=== PATIENT | male | born 1955 | race Caucasian/White ===

== ENCOUNTER → 2016-08-22 | Outpatient (CLI) | payer OTHER ==
[~2016-08-22] MED LIST: ACET300T2 PO; ASPI-232 PO; ATOR80TA PO; ATV/1 PO; CIPR-255 PO; FLUT0.0529 NAE; HYDR-3983 PO; MCRHC/8025 PO; MELO15TA3 PO; METO1TAB66 PO; NITR0.4S SL; OMEGCAP2 PO; TADA5TAB11 PO
[2016-08-22 10:58] LABS: CHOLESTEROL/HDL RATIO 4.6
== END | disposition home or self-care (01) ==
LOC: C.LAB 09:13
PROVIDERS: ATTEND Family Medicine
DX: E78.00 Pure hypercholesterolemia, unspecified (principal); I10 Essential (primary) hypertension; I51.9 Heart disease, unspecified; I21.3 ST elevation (STEMI) myocardial infarction of unspecified site

== ENCOUNTER → 2016-08-29 | Outpatient (CLI) | payer OTHER ==
[~2016-08-29] MED LIST changes: +METO-452 PO; -METO1TAB66 PO
== END | disposition home or self-care (01) ==
LOC: C.LAB 09:14
PROVIDERS: ATTEND Family Medicine
DX: E78.00 Pure hypercholesterolemia, unspecified (principal); I51.9 Heart disease, unspecified; I10 Essential (primary) hypertension; I21.3 ST elevation (STEMI) myocardial infarction of unspecified site

== ENCOUNTER → 2017-01-05 | Outpatient (CLI) | payer OTHER ==
[~2017-01-05] MED LIST changes: -METO-452 PO; +METO1TAB66 PO
--- NOTE | 2017-01-05 12:24 | DIAGNOSTIC IMAGING REPORT ---
ULTRASOUND OF THE CAROTID ARTERIES CLINICAL HISTORY: CAD; HYPERLIPIDEMIA; HYPERTENSION COMPARISON STUDY: None. TECHNIQUE: Real-time, grayscale, and color Doppler sonography of the carotid arteries was performed. Imaging reviewed in the transverse and longitudinal planes. NASCET criteria was utilized for stenosis calcification. FINDINGS: There is mild atherosclerotic plaque present . The peak systolic velocity within the right internal carotid artery is 66 cm/sec. The systolic velocity ratio of right internal to common carotid artery is 0.6. The peak systolic velocity within the left internal carotid artery is 74 cm/sec. The systolic velocity ratio left internal to common carotid artery is 0.8. Antegrade flow is seen in the vertebral arteries. The external carotid arteries are patent. Blood pressure in the right arm measured 125 mm/Hg. Blood pressure in the left arm measured 139 mm/Hg. IMPRESSION: No evidence of hemodynamically significant carotid stenosis. Electronically signed by: Jimmie Manuel M.D. 01/05/2017 12:23 PM Dictated Date/Time: 01/05/2017 12:21 PM
== END | disposition home or self-care (01) ==
LOC: C.ULTR 11:17
PROVIDERS: ATTEND Physician Assistant Medical
DX: E78.5 Hyperlipidemia, unspecified (principal); I10 Essential (primary) hypertension; I25.10 Atherosclerotic heart disease of native coronary artery without angina pectoris

== ENCOUNTER 2018-10-14 07:08 | Inpatient (IN) ==
--- NOTE | 2018-09-21 15:18 | PAT Medication Instructions ---
Medication Instructions Date of Service September 21, 2018 Home Medications acetaminophen 500 mg PO UD PRN aspirin [Aspir-81] 81 mg PO DAILY atorvastatin 80 mg PO QAM diclofenac sodium 75 mg PO BID lorazepam 1 mg PO DAILY metoprolol succinate 50 mg PO QAM telmisartan-hydrochlorothiazid 1 tab PO QAM tramadol 50 mg PO UD PRN turmeric 500 mg PO DAILY ASK your surgeon for instructions diclofenac sodium 75 mg PO BID STOP taking 2 weeks before surgery (or as soon as possible if surgery is within 2 weeks) turmeric 500 mg PO DAILY DO NOT take the morning of surgery telmisartan-hydrochlorothiazid 1 tab PO QAM Take morning of surgery With a small sip of water, OTHERWISE NOTHING TO EAT OR DRINK AFTER MIDNIGHT: acetaminophen 500 mg PO UD PRN (okay to take up to 4 hours prior to surgery if needed) atorvastatin 80 mg PO QAM lorazepam 1 mg PO DAILY metoprolol succinate 50 mg PO QAM tramadol 50 mg PO UD PRN (okay to take up to 4 hours prior to surgery if needed) Take evening before surgery acetaminophen 500 mg PO UD PRN (if needed) diclofenac sodium 75 mg PO BID tramadol 50 mg PO UD PRN (if needed) Other Notes If you have any questions please call us at [phone] or [phone] or [phone] or [phone]
--- NOTE | 2018-09-22 10:20 | Anesthesiology Consultation ---
Date of Service September 22, 2018 Assessment & Plan (1) Encounter for pre-operative examination: Chart Review Chart Review: Acceptable Risk for Surgery and Patient seen in Pre Admission Testing PLEASE NOTIFY SURGEON'S OFFICE THAT PATIENT LIKELY HAS A UTI. Consults Requested none [facility] note September 20, 2018. "Based upon interview and exam, he is cleared for sugery." Teaching & Discussion Pre-Anesthesia Teaching/Discussion Notes: Instructed NPO after midnight before surgery, except medications with 15 cc of water. Medication instructions provided according to the PAT guidelines. History Surgery Operation Date: 10/14/18 09:35 Proposed Procedures p Right Total Hip Arthroplasty - Max Miller MD Height/Weight Height: 5 ft 8 in Weight: 112.1 kg Allergies Allergy/AdvReac Type Severity Reaction Status Date / Time cimetidine Allergy Unknown DIAPHORESIS Verified 08/29/14 06:05 ciprofloxacin Allergy Unknown RASH, Verified 09/14/18 08:15 VISION TUNNLED, VERTIGO, NO TASTE CANTELOPE Allergy Unknown rash Uncoded 08/29/14 06:05 Medications Home Medications Medication Instructions Recorded Confirmed Last Taken acetaminophen 500 mg PO UD PRN 09/14/18 09/14/18 Unknown atorvastatin 80 mg PO QAM 09/14/18 09/14/18 09/13/18 diclofenac sodium 75 mg PO BID 09/14/18 09/14/18 Unknown lorazepam 1 mg PO DAILY 09/14/18 09/14/18 Unknown metoprolol succinate 50 mg PO QAM 09/14/18 09/14/18 09/13/18 telmisartan-hydrochlorothiazid 1 tab PO QAM 09/14/18 09/14/18 09/13/18 tramadol 50 mg PO UD PRN 09/14/18 09/14/18 Unknown turmeric 500 mg PO DAILY 09/14/18 09/14/18 Unknown omeprazole 20 mg PO HS 09/22/18 09/22/18 Unknown Past Medical History Medical History Anxiety Hiatal hernia History of heart attack 2006/STENT X1 ([facility] 2 ATTEMPTS THEN [place] TO [place])/KIP FAYE History of skin cancer Hyperlipidemia Hypertension Osteoarthritis Past Family History Family History Sister Family history of breast cancer Father Family history of leukemia Other Family history of skin cancer Past Surgical History Surgical History History of arthroscopy of left knee History of arthroscopy of right knee History of cardiac cath 2006, STENT X1 ([facility] 2 ATTEMPTS...[place] TO [place] FOR PLACEMENT OF STENT) History of colonoscopy History of skin cancer RESECTED History of tonsillectomy History of tooth extraction Past Anesthesia History No Hx of Anesthesia Complications and No Family Hx of Anesthesia Complications Patient did have problems with BP becoming elevated once during surgery. History of PONV No Motion Sickness Screening History of Motion Sickness: Yes Social History Smoking Status: Former smoker tobacco type: cigarettes Smoking cigarettes per day: ~1/2 PPD x 25 YEARS Do You Dip or Chew Tobacco: No Smoking End Date: QUIT 20 YRS AGO Hx Alcohol Use: Yes Alcohol type: beer and wine alcohol intake frequency: a few times a month Alcohol Intake Frequency Comment: 1 BEER OR GLASS WINE PER MONTH Hx Substance Use: No substance use type: does not use Exercise / Class Metabolic Activity II 4-5 Yardwork/Stairs/Walk up hill Rides stationary bike 2-3 miles per day. Walks 5K steps per day according to fitbit. Able to climb FOS. Does become SOB after 3-4 flights. Otherwise denies CP or SOB. Review of Systems Patient denies chest pain, shortness of breath, dyspnea on exertion, cough, whe ezing, palpitations. +Joint Pain (Right Hip, Both Knees) +Acid Reflux (Controlled with medications) Physical Exam Vital Signs BP: 108/68 P: 79 R: 18 T: 98.0 SPO2: 99% on RA Constitutional + obese ENMT Thyromental Distance: > or= 3.5 Finger Breadths (3.5) Mallampati Class: II Neck normal visual inspection and + thick neck; neck extension not limited Respiratory normal respiratory effort Auscultation: lungs clear to auscultation bilaterally Cardiovascular Rate/Rhythm: regular rate and regular rhythm Heart Sounds: no murmur Vessels: no carotid bruit Neurologic moves all extremities Psychiatric Orientation: alert and oriented x 3 Testing Electrocardiogram Date: 09/22/18 Findings: + SB @ (53 bpm) Otherwise normal ECG When compared with ECG of 03/10/2014 sinus rhythm has replaced Junctional rhythm Confirmed by Jorge Cox on 09/22/2018 Laboratory Results 09/22/18 11:30 09/22/18 11:30 Blood Type B Positive 09/22/18 11:30 Antibody Screen NEGATIVE 09/22/18 11:30 PT 10.9 Seconds (9.0-12.0) 09/22/18 11:30 INR 1.1 (0.9-1.1) 09/22/18 11:30 APTT 26.1 Seconds (21.0-31.0) 09/22/18 11:30 Hemoglobin A1c 6.0 % (4.5-5.6) H 09/22/18 11:30 Urine Color Yellow 09/22/18 Unknown Urine Appearance Cloudy (Clear) H 09/22/18 Unknown Urine pH 5.0 (4.5-7.5) 09/22/18 Unknown Ur Specific [place] 1.021 (1.000-1.030) 09/22/18 Unknown Urine Protein Negative (Negative) 09/22/18 Unknown Urine Glucose (UA) Negative (Negative) 09/22/18 Unknown Urine Ketones Negative (Negative) 09/22/18 Unknown Urine Nitrite Positive (Negative) H 09/22/18 Unknown Ur Leukocyte Esterase 3+ (Negative) H 09/22/18 Unknown Urine WBC (Auto) >30 /hpf (0-5) H 09/22/18 Unknown Urine RBC (Auto) 5-10 /hpf (0-4) H 09/22/18 Unknown U Hyaline Cast (Auto) 0 /lpf (0-5) 09/22/18 Unknown U Epithel Cells (Auto) 0-5 /lpf (0-5) 09/22/18 Unknown Urine Bacteria (Auto) 4+ (Negative) H 09/22/18 Unknown 09/22/18 Unknown Urine Culture - Final Urine,Clean Catch Escherichia coli
[2018-09-22 12:39] LABS: Basophils # (auto) 0.06 K/uL (0-0.2); Basophils % (auto) 0.7 %; Eosinophils # (auto) 0.34 K/uL (0-0.5); Hematocrit (blood only) 38.7 % (42-52); Hemoglobin 13.6 g/dL (14.0-18.0); Immature Granulocytes # (auto) 0.03 K/uL (0.00-0.02); Immature Granulocytes % (auto) 0.4 %; Lymphocytes # (auto) 1.77 K/uL (1.2-3.4); Lymphocytes % (auto) 20.7 %; Mean Corpuscular Hgb Conc 35.1 g/dL (32-36); Mean Corpuscular Volume 92.6 fL (80-100); Mean Platelet Volume 11.1 fL (7.4-10.4); Monocytes # (auto) 0.69 K/uL (0.11-0.59); Monocytes % (auto) 8.1 %; Neutrophils # (auto) 5.65 K/uL (1.4-6.5); Neutrophils % (auto) 66.1 %; Platelet Count 195 K/uL (130-400); RDW Coefficient of Variation 13.8 % (11.5-14.5); RDW Standard Deviation 46.3 fL (36.4-46.3); Red Blood Count 4.18 M/uL (4.7-6.1); White Blood Count 8.54 K/uL (4.8-10.8)
[2018-09-22 12:51] LABS: INR 1.1 (0.9-1.1); Partial Thromboplastin Time 26.1 Seconds (21.0-31.0); Prothrombin Time 10.9 Seconds (9.0-12.0)
[2018-09-22 12:56] LABS: Albumin Level 3.7 gm/dl (3.4-5.0); BUN Creatinine Ratio 21.2 (10-20); Calcium 9.2 mg/dl (8.5-10.1); Creatinine Clr Calc Pharmacy 65.8 ml/min; Est GFR (African American) 62.8; Est GFR (Non-African American) 54.2; Potassium 3.9 mmol/L (3.5-5.1)
[2018-09-22 12:57] LABS: Appearance Urine Cloudy (Clear); Bacteria Urine Automated 4+ (Negative); Bilirubin Urine Negative (Negative); Blood Urine 2+ (Negative); Cast Urine Automated 0 /lpf (0-5); Color Urine Yellow; Epithelial Cell Urine Auto 0-5 /lpf (0-5); Glucose Urine UA Negative (Negative); Ketones Urine Negative (Negative); Leukocyte Esterase Urine 3+ (Negative); Nitrite Urine Positive (Negative); Protein Urine Negative (Negative); Specific Gravity Urine 1.021 (1.000-1.030); Urobilinogen Urine Negative (Negative); WBC Urine Automated >30 /hpf (0-5)
[2018-09-22 13:00] LABS: Bilirubin,Total 0.7 mg/dl (0.2-1); Globulin 3.7 gm/dl (2.5-4.0); Total Protein 7.4 gm/dl (6.4-8.2)
[2018-09-22 13:26] LABS: Estimated Average Glucose 126 mg/dl
--- NOTE | 2018-09-22 14:36 | History & Physical Report ---
Date of Service September 22, 2018 Assessment & Plan (1) Localized osteoarthrosis of right hip: DIAGNOSIS: Right hip osteoarthritis. PROCEDURE: Right total hip arthroplasty. PLAN: The patient is scheduled to undergo this procedure with Dr. Max Miller at [facility] as an inpatient on 10/14/2018. Risks and complications of the surgery such as infection, bleeding, pain, scarring, nerve and blood vessel damage, weakness, wound problems, stiffness, incomplete relief of symptoms, heart attack, stroke, , hardware failure, loosening, wear, fracture, dislocation, leg length inequality, blood clots and embolism were explained to the patient by Dr. Miller. Informed consent to perform the procedure was obtained. We have already obtained preoperative medical clearance from the patient's primary care provider, Dr. Ar Conn. We will need to obtain a preoperative EKG, CBC with differential, complete metabolic panel, PT, INR, blood type and screen, urinalysis, urine culture and sensitivity, hemoglobin A1c and a nasal culture for MRSA. The patient was given instruction to purchase a hip kit and an order to obtain a walker prior to the surgery. I advised him that I will prescribe him medications upon discharge from the hospital. One of those includes an opioid analgesic. The PDMP was checked, no red flags were raised to prevent us from prescribing this medication to the patient. I also instructed him about the use of aspirin for DVT prophylaxis postoperatively. Patient was provided with paperwork to obtain a handicap placard prior to the procedure. I educated him about the use of antibiotics for dental procedures after a total joint replacement. I also discussed discharge planning with the patient as well as discussed lectures that the hospital provides for patients undergoing joint replacement therapy. We went over total hip precautions. I advised the patient that he will need to use an abduction pillow while sleeping for 6 weeks postoperatively to prevent dislocation. I also advised patient to refrain from using nonsteroidal agents approximately 7 weeks prior to the procedure to prevent excess bleeding. The patient will need to have tranexamic acid topically due to his cardiac history. The patient verbalized understanding of all information provided during today's visit, thanked us for the care he has received and states if he has questions or concerns that should arise prior to the procedure, he will contact the clinic. Also, of note, we also did obtain sizing ball x-rays during today's visit. History of Present Illness Chief Complaint: CHIEF COMPLAINT: Right hip pain. Primary Care Provider: Ar Conn MD HISTORY OF PRESENT ILLNESS: This 63-year-old male presents to the clinic today for his preoperative history and physical. The patient complains of a gradual increase in pain in the right groin over the past several years and is exacerbated with walking, standing, and sleeping. The patient has failed conservative treatment with steroid injections, topical nonsteroidal agents, oral nonsteroidal agents, physical therapy and Tylenol. The patient has lost 33 pounds since his visit in June. In preparation for this surgery. PAST SURGICAL HISTORY: Upper GI endoscopy, bilateral knee arthroscopy, bilateral meniscectomy, coronary artery bypass graft, heart catheterization with stent placement and shave biopsy with cauterization of skin. PAST MEDICAL HISTORY: Basal cell carcinoma, coronary artery disease, hypercholesterolemia, generalized anxiety disorder, hearing loss, hypertension, weight disorder, actinic keratosis, asthma, diverticulitis, history of a myocardial infarction and vitamin D deficiency. ALLERGIES: THE PATIENT HAS MEDICATION ALLERGIES TO CIPROFLOXACIN, FLAGYL, PENICILLIN AND TAGAMET. SOCIAL HISTORY: The patient states that he was a smoker, but quit smoking 17 years ago and denies any type of substance abuse with recreational drugs. States he consumes alcohol 1-2 times per month. Allergies Allergy/AdvReac Type Severity Reaction Status Date / Time cimetidine Allergy Unknown DIAPHORESIS Verified 08/29/14 06:05 ciprofloxacin Allergy Unknown RASH, Verified 09/14/18 08:15 VISION TUNNLED, VERTIGO, NO TASTE CANTELOPE Allergy Unknown rash Uncoded 08/29/14 06:05 Home Medications Home Medications Medication Instructions Recorded Confirmed Type acetaminophen 500 mg PO UD PRN 09/14/18 09/14/18 History atorvastatin 80 mg PO QAM 09/14/18 09/14/18 History diclofenac sodium 75 mg PO BID 09/14/18 09/14/18 History lorazepam 1 mg PO DAILY 09/14/18 09/14/18 History metoprolol succinate 50 mg PO QAM 09/14/18 09/14/18 History telmisartan-hydrochlorothiazid 1 tab PO QAM 09/14/18 09/14/18 History tramadol 50 mg PO UD PRN 09/14/18 09/14/18 History turmeric 500 mg PO DAILY 09/14/18 09/14/18 History omeprazole 20 mg PO HS 09/22/18 09/22/18 History Past Med/Surg History Medical History Anxiety Hiatal hernia History of heart attack 2006/STENT X1 ([facility] 2 ATTEMPTS THEN TX TO [place])/KIP FAYE History of skin cancer Hyperlipidemia Hypertension Osteoarthritis Surgical History History of arthroscopy of left knee History of arthroscopy of right knee History of cardiac cath 2006, STENT X1 ([facility] 2 ATTEMPTS...TX TO [place] FOR PLACEMENT OF STENT) History of colonoscopy History of skin cancer RESECTED History of tonsillectomy History of tooth extraction Family History Sister Family history of breast cancer Father Family history of leukemia Other Family history of skin cancer Social History Preferred Language: Polish Communication Ability: Effective Solid Waste Facility Operator Required: No Beliefs That Will Affect Care: None Current Living Situation: Spouse Other Information That Helps Us Care for You: No Feels Safe at Home: Yes Smoking Status: Former smoker Tobacco Type: cigarettes Cigarettes Per Day: ~1/2 PPD x 25 YEARS Do You Dip or Chew Tobacco: No Smoking End Date: QUIT 20 YRS AGO Hx Alcohol Use: Yes Alcohol type: beer and wine Hx Substance Use: No Review of Systems All systems reviewed & are unremarkable except as noted in HPI & below Physical Exam Vital Signs (Past 24 Hours): PHYSICAL EXAMINATION: Skin: The patient's skin is normal in appearance. No open skin lesions or discharge. Eyes: Pupils are equal and reactive to light and accommodating. Extraocular movements are intact. Throat: Posterior oropharynx is clear with absence of edema, erythema or exudate. Cardiovascular Exam: The patient has a regular rate with an irregular rhythm with an S3 gallop heard every 30-40 seconds. There are no murmurs appreciated. Lungs: Auscultation of lung muñoz reveals clear breath sounds throughout, no wheezing, rales or rhonchi. Abdomen is obese, nondistended, nontender with normoactive bowel sounds. Extremities: Right Hip: The patient is able to flex to 100 degrees with associated groin pain. External rotation is to 45 degrees, internal rotation to 5 degrees. Impingement and scour tests are both positive. The patient has a slightly antalgic gait. He has a positive Stinchfield test, positive log roll test, has pain with active abduction and adduction without applied resistance. He is neurovascularly intact in the right lower extremity and there is no noted atrophy of the quadriceps musculature. Neurologic Exam: Cranial nerves 2 through 12 are intact. No motor or sensory deficit. Psychological/General Exam: The patient is alert and oriented x3 with proper grooming and hygiene. Results & Data Laboratory Results Laboratory Results - last 24 hr 09/22/18 09/22/18 09/22/18 11:30 11:30 11:30 WBC 8.54 RBC 4.18 L Hgb 13.6 L Hct 38.7 L MCV 92.6 MCH 32.5 MCHC 35.1 RDW Std Deviation 46.3 RDW Coeff of Fernanda 13.8 Plt Count 195 MPV 11.1 H Immature Gran % (Auto) 0.4 Neut % (Auto) 66.1 Lymph % (Auto) 20.7 Gibson % (Auto) 8.1 Eos % (Auto) 4.0 Baso % (Auto) 0.7 Immature Gran # (Auto) 0.03 H Neut # (Auto) 5.65 Lymph # (Auto) 1.77 Gibson # (Auto) 0.69 H Eos # (Auto) 0.34 Baso # (Auto) 0.06 PT 10.9 INR 1.1 APTT 26.1 PTT Ratio 1.0 Sodium 138 Potassium 3.9 Chloride 106 Carbon Dioxide 27 Anion Gap 5.0 BUN 29 H Creatinine 1.36 Est Cr Clr Drug Dosing 65.8 Est GFR ( Amer) 62.8 Est GFR (Non-Af Amer) 54.2 BUN/Creatinine Ratio 21.2 H Glucose 94 Estimat Average Glucose Hemoglobin A1c Calcium 9.2 Total Bilirubin 0.7 AST 20 ALT 48 Alkaline Phosphatase 63 Total Protein 7.4 Albumin 3.7 Globulin 3.7 Albumin/Globulin Ratio 1.0 Urine Color Urine Appearance Urine pH Ur Specific [place] Urine Protein Urine Glucose (UA) Urine Ketones Urine Blood Urine Nitrite Urine Bilirubin Urine Urobilinogen Ur Leukocyte Esterase Urine WBC (Auto) Urine RBC (Auto) U Hyaline Cast (Auto) U Epithel Cells (Auto) Urine Bacteria (Auto) Nasal Screen MRSA (PCR) Blood Type Antibody Screen 09/22/18 09/22/18 09/22/18 11:30 11:30 Unknown WBC RBC Hgb Hct MCV MCH MCHC RDW Std Deviation RDW Coeff of Fernanda Plt Count MPV Immature Gran % (Auto) Neut % (Auto) Lymph % (Auto) Gibson % (Auto) Eos % (Auto) Baso % (Auto) Immature Gran # (Auto) Neut # (Auto) Lymph # (Auto) Gibson # (Auto) Eos # (Auto) Baso # (Auto) PT INR APTT PTT Ratio Sodium Potassium Chloride Carbon Dioxide Anion Gap BUN Creatinine Est Cr Clr Drug Dosing Est GFR ( Amer) Est GFR (Non-Af Amer) BUN/Creatinine Ratio Glucose Estimat Average Glucose 126 Hemoglobin A1c 6.0 H Calcium Total Bilirubin AST ALT Alkaline Phosphatase Total Protein Albumin Globulin Albumin/Globulin Ratio Urine Color Urine Appearance Urine pH Ur Specific [place] Urine Protein Urine Glucose (UA) Urine Ketones Urine Blood Urine Nitrite Urine Bilirubin Urine Urobilinogen Ur Leukocyte Esterase Urine WBC (Auto) Urine RBC (Auto) U Hyaline Cast (Auto) U Epithel Cells (Auto) Urine Bacteria (Auto) Nasal Screen MRSA (PCR) Negative Blood Type B Positive Antibody Screen NEGATIVE 09/22/18 Unknown WBC RBC Hgb Hct MCV MCH MCHC RDW Std Deviation RDW Coeff of Fernanda Plt Count MPV Immature Gran % (Auto) Neut % (Auto) Lymph % (Auto) Gibson % (Auto) Eos % (Auto) Baso % (Auto) Immature Gran # (Auto) Neut # (Auto) Lymph # (Auto) Gibson # (Auto) Eos # (Auto) Baso # (Auto) PT INR APTT PTT Ratio Sodium Potassium Chloride Carbon Dioxide Anion Gap BUN Creatinine Est Cr Clr Drug Dosing Est GFR ( Amer) Est GFR (Non-Af Amer) BUN/Creatinine Ratio Glucose Estimat Average Glucose Hemoglobin A1c Calcium Total Bilirubin AST ALT Alkaline Phosphatase Total Protein Albumin Globulin Albumin/Globulin Ratio Urine Color Yellow Urine Appearance Cloudy H Urine pH 5.0 Ur Specific [place] 1.021 Urine Protein Negative Urine Glucose (UA) Negative Urine Ketones Negative Urine Blood 2+ H Urine Nitrite Positive H Urine Bilirubin Negative Urine Urobilinogen Negative Ur Leukocyte Esterase 3+ H Urine WBC (Auto) >30 H Urine RBC (Auto) 5-10 H U Hyaline Cast (Auto) 0 U Epithel Cells (Auto) 0-5 Urine Bacteria (Auto) 4+ H Nasal Screen MRSA (PCR) Blood Type Antibody Screen
[~2018-10-14 07:08] MED LIST changes: -ACET300T2 PO; +ACETAMINOPHEN 500 MG TAB PO SCH; -ASPI-232 PO; -ATOR80TA PO; -ATV/1 PO; +BUPIVACAINE 0.5 % 5 MG/1 ML PF 10ML VIAL ONE; +CEFAZOLIN 3000MG 65 ML IV SCH; -CIPR-255 PO; +CeleBREX 200 MG CAP PO SCH; +FAMOTIDINE 20 MG TAB PO SCH; -FLUT0.0529 NAE; -HYDR-3983 PO; +LR 500ML BOLUS, THEN 15ML/HR IV SCH; +LR 60ML/HR IV SCH; -MCRHC/8025 PO; -MELO15TA3 PO; -METO1TAB66 PO; +METOCLOPRAMIDE HCL 10 MG TABLET PO SCH; -NITR0.4S SL; -OMEGCAP2 PO; +ORTHO JOINT ANESTHETIC ONE; +POVIDONE-IODINE OP SOLN 30 ML BTL ONE; +ROPIVACAINE 0.5% HCL/PF 150 MG, BUPIVACAINE 0.5% MPF 30 ML, EPINEPHrine 0.15 MG, Ketoro... INFIL SCH; +SCOPOLAMINE 1.5 MG TDSY TD SCH; -TADA5TAB11 PO; +TRANEXAMIC ACID 1,000 MG x 1 **For Topical Use TOP SCH; +dexAMETHasone 4 MG TAB PO SCH
[2018-10-14] MEDS ORDERED: fentaNYL citrate 100 MCG/2 ML VIAL ONE (07:29)
[2018-10-14] MEDS ORDERED: LIDOCAINE HCL 2% 2 ML VIAL/AMP(20MG/ML) INFIL ONE (07:29)
[2018-10-14] MEDS ORDERED: MIDAZOLAM HCL 1 MG/ML 2ML VIAL ONE ×2 (07:29→10:21)
[2018-10-14] MEDS ORDERED: PROPOFOL IV EMULSION 10 MG/ML 20 ML VIAL IV ONE (07:29)
--- NOTE | 2018-10-14 09:02 | History & Physical Bridge Note ---
Date of Service October 14, 2018 History & Physical Bridge Note I have examined the patient, reviewed the History & Physical and in the interval since the performance of the History & Physical I have noted the following changes of clinical significance: no changes noted
--- NOTE | 2018-10-14 10:49 | Post Operative Brief Note ---
Immediate Post Op Note v1 Date of Surgery October 14, 2018 Pre & Post Diagnosis Operation Date: 10/14/18 09:15 Pre-Op Diagnosis: Right Hip Osteoarthritis Post-Op Diagnosis: Right Hip Osteoarthritis Procedure Operation Date: 10/14/18 09:15 Actual Procedures p Right Total Hip Arthroplasty, Uncemented(Right) - Max Miller MD Surgeon Max Miller MD Quantitative Equity Head ARIN Hayes PA-C Estimated Blood Loss 100 Findings Consistent with Post-Op Diagnosis Fluids 1600 Anesthesia Type Spinal MAC Complications none Disposition Accompanied Patient To Recovery: No Disposition: Recovery Room
[2018-10-14] MEDS ORDERED: ePHEDrine sulfate 50 MG/ML SYR ONE (10:58)
[2018-10-14] MEDS ORDERED: METOCLOPRAMIDE HCL INJ 5 MG/ML 2 ML VIAL IV PRN (11:04)
[2018-10-14] MEDS ORDERED: DiphenhydrAMINE HCL 50 MG/ML VIAL IV PRN (11:04)
[2018-10-14] MEDS ORDERED: NALOXONE HCL 0.4 MG/1 ML VIAL/CARP IV PRN (11:04)
[2018-10-14] MEDS ORDERED: TAMSULOSIN HCL 0.4 MG CAP PO PRN (11:04)
[2018-10-14] MEDS ORDERED: ALUMINUM/MAGNESIUM SUSP 30 ML UDC PO PRN (11:04)
[2018-10-14] MEDS ORDERED: ONDANSETRON INJ 2 MG/ML 2 ML VIAL IV PRN ×2 (11:04→11:18)
[2018-10-14] MEDS ORDERED: BISACODYL 10 MG SUPP PR PRN (11:04)
[2018-10-14] MEDS ORDERED: MAGNESIUM HYDROXIDE SUSP 30 ML UDC PO PRN (11:04)
[2018-10-14] MEDS ORDERED: HYDROmorphone INJ 0.5 MG/0.5 ML SYR IV PRN (11:04)
--- NOTE | 2018-10-14 11:04 | Operative Report ---
Post Operative Report Pre & Post Diagnosis Operation Date: 10/14/18 09:15 Pre-Op Diagnosis: Right Hip Osteoarthritis Post-Op Diagnosis: Right Hip Osteoarthritis Procedure Operation Date: 10/14/18 09:15 Actual Procedures p Right Total Hip Arthroplasty, Uncemented(Right) - Max Miller MD Surgeon Max Miller MD Custom Frame Assembler ARIN Hayes PA-C Estimated Blood Loss 100 Findings Consistent with Post-Op Diagnosis Specimens femoral head Complications none Disposition Accompanied Patient To Recovery: Yes Disposition: Recovery Room Description of Procedure I was present during the entire case assisting with wound closure and dressing application. Please see Dr. Miller procedure note for specifics of the case. I attest to the content of the Intraoperative Record and any orders documented therein. Any exceptions are noted below.
[2018-10-14] MEDS ORDERED: ACETAMINOPHEN 500 MG TAB PO PRN (11:10)
[2018-10-14] MEDS ORDERED: TRAMADOL HCL 50 MG TABLET PO PRN (11:10)
[2018-10-14] MEDS ORDERED: ATROPINE SULFATE 0.1 MG/ML 10ML SYR IV PRN (11:18)
[2018-10-14] MEDS ORDERED: HYDROmorphone INJ 1 MG/ML SYRINGE IV PRN (11:18)
[2018-10-14] MEDS ORDERED: fentaNYL citrate 100 MCG/2 ML VIAL IV PRN (11:18)
[2018-10-14] MEDS ORDERED: ePHEDrine sulfate 50 MG/ML AMP IV PRN (11:18)
--- NOTE | 2018-10-14 11:33 | XRay Report ---
XR hip 1V RT w pelvis CLINICAL HISTORY: IN PACU - A/P PELVIS and LATERAL HIP hip replacement COMPARISON: 09/22/2018 DISCUSSION: Anatomic alignment post total right hip arthroplasty. Good contact between prosthetic and underlying bone. Expected soft tissue postoperative change IMPRESSION: Anatomic alignment post total right hip arthroplasty. The above report was generated using voice recognition software. It may contain grammatical, syntax or spelling errors. Electronically signed by: Jerrod Macias M.D. 10/14/2018 11:32 AM
--- NOTE | 2018-10-14 11:48 | Anesthesiology Progress Note ---
Date of Service October 14, 2018 Anesthesia Post Procedure Vital Signs Vital Signs: Temp Pulse Resp BP Pulse Ox 10/14/18 11:40 53 L 13 105/56 L 96 10/14/18 11:30 52 L 13 101/56 L 95 10/14/18 11:20 58 L 13 100/54 L 97 10/14/18 11:10 53 L 14 90/51 L 98 10/14/18 11:03 36.2 C L 58 L 14 94/53 L 97 10/14/18 07:48 36.8 C 59 L 20 132/77 97 Pain Intensity Right Hip: Pain Intensity: 4 Transfer of Care Handoff Completed per policy Notes Mental Status: alert / awake / arousable and participated in evaluation Patient Amnestic to Procedure: Yes Nausea / Vomiting: adequately controlled Pain: adequately controlled Airway Patency, RR, SpO2: stable & adequate BP & HR: stable & adequate Hydration State: stable & adequate Neuraxial Anesthesia: was administered and sensory block is resolving Anesthetic Complications: no major complications apparent and Pt Satisfied with anesthetic care
--- NOTE | 2018-10-14 11:48 | Operative Report ---
DATE OF OPERATION: 10/14/2018 PREOPERATIVE DIAGNOSIS: Right hip osteoarthritis. POSTOPERATIVE DIAGNOSIS: Right hip osteoarthritis. OPERATION PERFORMED: Right total hip arthroplasty. SURGEON: Max Miller MD. STABLEHAND: Tierra Hayes. ESTIMATED BLOOD LOSS: 100 mL. INTRAVENOUS FLUIDS: 1600 mL of crystalloid. SPECIMENS: Femoral head. COMPLICATIONS: None. IMPLANTS: 1. DePuy Gription 56 mm outer diameter acetabular sector cup. 2. DePuy Foley 6.5 x 25 mm bone screw. 3. DePuy Foley Ultrex polyethylene liner neutral for a 36 femoral head. 4. DePuy Cidra size 5 high offset tapered stem. 5. DePuy Biolox delta 36 mm head with a +1.5 offset. INDICATIONS: Mr. Herrera is a 63-year-old gentleman who has had right hip pain that has been refractory to conservative management. X-rays demonstrate [id number] osteoarthritis. I had a long discussion with him about the risks and benefits of surgery, alternatives to surgery and expected outcomes. After reviewing all these, he elected to proceed with surgery. All questions were answered. Informed consent was signed. OPERATIVE FINDINGS: The patient had findings consistent with degenerative osteoarthritis. A ceramic on polyethylene total hip arthroplasty was implanted without complication. DESCRIPTION OF THE OPERATION: The patient was identified in the preoperative holding area where his surgical site was marked. He was given a spinal anesthetic by anesthesia and brought back to the main operating room where he was placed on the operating room table and moved into the lateral decubitus position. Axillary roll was placed. All bony prominences were padded. Perioperative antibiotics were administered. He was prepped and draped in the normal sterile fashion. Prior to incision, a multidisciplinary timeout was called. All in the room were in agreement. We began by making a curved incision for a posterior approach to the hip, measuring approximately 16 cm. I dissected through the subcutaneous tissues to the level of the fascia. The fascia was incised in line with the incision. Charnley bow was placed. Trochanteric bursa was excised. The piriformis and short external rotators were dissected off the posterior aspect of the hip capsule. A box cut was made in the hip capsule. The femoral head was dislocated. A femoral neck cut was made at 9 mm, which is our preoperative template. The acetabulum was exposed. The labrum was excised. The contents of the cotyloid fossa were removed using a curette and a large rongeur. The acetabulum was then reamed up to a size 56 mm acetabulum. This gave us a nice cancellous bleeding bone. We did medialize him down to his medial wall. I then irrigated out the cup and then placed in the Gription 56 mm cup with 45 degrees of lateral opening and 25 degrees of anteversion. A single cancellous bone screw was placed up into the ilium. Excellent fixation was obtained. Next, a polyethylene liner for a 36-mm femoral head was impacted into position. We checked the locking mechanism and ensured that it had engaged. I then removed a small posterior inferior osteophyte adjacent to the cup. Next, the femoral neck was exposed. The Next One's On Me (NOOM) cutter was used followed by the lateralizing reamer. We then reamed his canal up to a size 5. We broached him all the way up to a size 5, which had excellent torsional stability. The high offset neck was then used with a +1.5 head. The hip was reduced. His leg lengths were checked and were symmetric. His shuck test was normal. He had no impingement in external rotation and extension. He was stable in the sleeper position. At 90 degrees of hip flexion, he could be internally rotated 55 degrees before leaving out of the cup. I was very happy with the stability exam. Therefore, removed all the trial components. Femoral canal was irrigated and dried. The real size 5 high offset Cidra stem was opened up and impacted down into the femoral canal. It sat at the same level as the broach. Therefore, we opened up the +1.5 mm ceramic femoral head 36 mm diameter. The head was gently impacted onto the trunnion. The hip was then atraumatically reduced. The wound was then soaked in Betadine for 3 minutes while we injected the subcutaneous tissues with our cocktail of anesthetics. Once 3 minutes was up, the Betadine was removed and the wound was irrigated with copious amounts of saline. The remaining of the periarticular injection cocktail was placed around the hip capsule anteriorly and inferiorly avoiding the sciatic nerve posteriorly. The piriformis and short external rotators were then repaired along with the capsule through bone tunnels in the posterior aspect of the greater trochanter. Tranexamic acid was then placed in the wound, was allowed to rest for 3 minutes before being removed from the wound for postoperative hemostasis. The fascia was then run with a looped #1 PDS. #1 PDS was used in the subcutaneous layer. 2-0 Vicryl was used in the dermal layer. A ZipLine was used for the skin. He was placed into a Silverlon dressing with a compressive dressing over the top. He was then rolled supine and an abduction pillow was placed. He was transferred to the recovery room in stable condition. POSTOPERATIVE COURSE: The patient will be admitted to the floor overnight for pain control and monitoring. We will plan on discharging him home tomorrow. I attest to the content of the Intraoperative Record and any orders documented therein. Any exception s are noted below.
[2018-10-14] MEDS: SODIUM CHLORIDE 0.9% 1000ML 1,000 ML IV SCH (13:23)
[2018-10-14] MEDS: KETOROLAC TROMETHAMINE 15 MG/ML VIAL IV SCH ×2 (13:23→18:09)
[2018-10-14] MEDS: ACETAMINOPHEN 500 MG TAB PO SCH ×2 (13:23→21:16)
[2018-10-14] MEDS: CEFAZOLIN 2000MG 2,000 MG/15 ML SYR IV SCH (16:42)
[2018-10-14] MEDS: CHECK SCOPOLAMINE PATCH PLACEMENT SCH ×2 (16:43→23:23)
[2018-10-14] MEDS ORDERED: PANTOprazole 40 MG TAB PO SCH (21:00)
[2018-10-14] MEDS ORDERED: DICLOFENAC SODIUM 75 MG TABCR PO SCH (21:00)
[2018-10-14] MEDS ORDERED: SENNA 8.6 MG TAB PO SCH (21:00)
[2018-10-14] MEDS: ASPIRIN 81 MG ECTAB PO SCH (21:16)
[2018-10-14] MEDS: DOCUSATE SODIUM 100 MG CAP PO SCH (21:16)
[2018-10-14] MEDS: OXYCODONE HCL IR 5 MG TAB (IMMEDIATE RELEASE) PO PRN (23:23)
[2018-10-15] MEDS: SODIUM CHLORIDE 0.9% 1000ML 1,000 ML IV SCH (00:10)
[2018-10-15] MEDS: KETOROLAC TROMETHAMINE 15 MG/ML VIAL IV SCH ×2 (01:22→06:27)
[2018-10-15] MEDS: CEFAZOLIN 2000MG 2,000 MG/15 ML SYR IV SCH (01:22)
[2018-10-15 06:01] LABS: Basophils # (auto) 0.01 K/uL (0-0.2); Basophils % (auto) 0.1 %; Hematocrit (blood only) 34.9 % (42-52); Hemoglobin 12.4 g/dL (14.0-18.0); Immature Granulocytes # (auto) 0.07 K/uL (0.00-0.02); Immature Granulocytes % (auto) 0.4 %; Lymphocytes # (auto) 0.96 K/uL (1.2-3.4); Lymphocytes % (auto) 5.9 %; Mean Corpuscular Hgb Conc 35.5 g/dL (32-36); Mean Corpuscular Volume 90.2 fL (80-100); Mean Platelet Volume 10.1 fL (7.4-10.4); Monocytes # (auto) 1.26 K/uL (0.11-0.59); Monocytes % (auto) 7.8 %; Neutrophils # (auto) 13.86 K/uL (1.4-6.5); Neutrophils % (auto) 85.8 %; Platelet Count 194 K/uL (130-400); RDW Coefficient of Variation 13.2 % (11.5-14.5); RDW Standard Deviation 43.4 fL (36.4-46.3); Red Blood Count 3.87 M/uL (4.7-6.1); White Blood Count 16.16 K/uL (4.8-10.8)
[2018-10-15] MEDS: ACETAMINOPHEN 500 MG TAB PO SCH (06:27)
[2018-10-15 06:42] LABS: BUN Creatinine Ratio 20.8 (10-20); Calcium 8.5 mg/dl (8.5-10.1); Creatinine Clr Calc Pharmacy 61.6 ml/min; Est GFR (African American) 58.6; Est GFR (Non-African American) 50.6
[2018-10-15] MEDS ORDERED: dexAMETHasone 4 MG TAB PO SCH (08:00)
[2018-10-15] MEDS: ASPIRIN 81 MG ECTAB PO SCH (08:08)
[2018-10-15] MEDS: DOCUSATE SODIUM 100 MG CAP PO SCH (08:09)
--- NOTE | 2018-10-15 08:15 | Anesthesiology Progress Note ---
Date of Service October 15, 2018 Anesthesia Post Procedure Vital Signs Vital Signs: Temp Pulse Pulse Resp BP BP Pulse Ox 10/15/18 07:40 36.4 C L 60 18 130/76 98 10/15/18 03:05 36.5 C 64 16 135/80 96 10/14/18 23:07 36.6 C 62 16 115/71 97 10/14/18 19:32 36.5 C 67 16 119/70 96 10/14/18 15:10 36.5 C 66 16 110/67 95 10/14/18 14:06 62 18 114/70 95 10/14/18 13:05 57 L 18 116/68 95 10/14/18 12:36 36.5 C 58 L 18 106/67 96 10/14/18 12:05 36.7 C 59 L 15 98/60 L 97 10/14/18 11:58 36.7 C 10/14/18 11:51 54 L 13 109/59 L 96 10/14/18 11:40 53 L 13 105/56 L 96 10/14/18 11:30 52 L 13 101/56 L 95 10/14/18 11:20 58 L 13 100/54 L 97 10/14/18 11:10 53 L 14 90/51 L 98 10/14/18 11:03 36.2 C L 58 L 14 94/53 L 97 Pain Intensity Right Hip: Pain Intensity: 2 Notes Mental Status: alert / awake / arousable Nausea / Vomiting: adequately controlled Pain: adequately controlled Airway Patency, RR, SpO2: stable & adequate BP & HR: stable & adequate Hydration State: stable & adequate Neuraxial Anesthesia: was administered and sensory block resolved Anesthetic Complications: no major complications apparent and Pt Satisfied with anesthetic care
[2018-10-15] MEDS: OXYCODONE HCL IR 5 MG TAB (IMMEDIATE RELEASE) PO PRN (08:20)
[2018-10-15] MEDS ORDERED: ATORVASTATIN 40 MG TAB PO SCH (09:00)
[2018-10-15] MEDS ORDERED: hydroCHLOROthiazide 25 MG TAB PO SCH (09:00)
[2018-10-15] MEDS ORDERED: TELMISARTAN 40 MG TAB PO SCH (09:00)
[2018-10-15] MEDS ORDERED: MULTIVITAMIN TAB PO SCH (09:00)
[2018-10-15] MEDS ORDERED: METOPROLOL SUCC 50MG EXT REL TAB PO SCH (09:00)
[2018-10-15] MEDS ORDERED: LORazepam 1 MG TAB PO PRN (09:00)
[2018-10-15] MEDS ORDERED: NON-FORMULARY MEDICATION (Turmeric 500 MG) PO SCH (09:00)
--- NOTE | 2018-10-15 10:47 | Orthopedic Progress Note ---
Date of Service October 15, 2018 Assessment & Plan (1) S/P total hip arthroplasty: PT/OT with inpatient Total hip precautions. Ice with EZ wrap DVT prophy with Aspirin and TEDs Abduction pillow use for 6 wks post op Pain control with PO meds WBAT with walker assistance F/u at [facility] in 2 wks as previously scheduled Subjective Day 1 s/p Right BENEDICT. Doing very well. Just finished PT. Has no complaints of CP, SOB, nausea, vomiting, fever, chills, sweats or lethargy. Ready to be discharged home. Pain well controlled with PO meds Review of Systems Review of Systems: All systems reviewed & are unremarkable except as noted in HPI & below Physical Exam Physical Exam: Right hip: No tenderness to palpation. No pain with Log roll, light internal / external rotation. Dressing clean, dry and intact. Able to easily perform SLRT. Mild edema but no erythema, ecchymosis, warmth or palpable deformity. Calf soft and supple. NV intact in entire Rt LE. Results & Data Vital Signs (Past 12 Hours) Vital Signs Temp Pulse Pulse Resp BP BP Pulse Ox 10/15/18 07:40 36.4 C L 60 18 130/76 98 10/15/18 03:05 36.5 C 64 16 135/80 96 10/14/18 23:07 36.6 C 62 16 115/71 97
[2018-10-15 11:37] VITALS: BP 104/63; PULSE 47; TEMP 97.7; O2SAT 97
--- NOTE | 2018-10-15 12:02 | Discharge Summary ---
Date of Service October 15, 2018 Admission HPI Per Admitting Provider HISTORY OF PRESENT ILLNESS: This 63-year-old male presents to the clinic today for his preoperative history and physical. The patient complains of a gradual increase in pain in the right groin over the past several years and is exacerbated with walking, standing, and sleeping. The patient has failed conservative treatment with steroid injections, topical nonsteroidal agents, oral nonsteroidal agents, physical therapy and Tylenol. The patient has lost 33 pounds since his visit in June. In preparation for this surgery. PAST SURGICAL HISTORY: Upper GI endoscopy, bilateral knee arthroscopy, bilateral meniscectomy, coronary artery bypass graft, heart catheterization with stent placement and shave biopsy with cauterization of skin. PAST MEDICAL HISTORY: Basal cell carcinoma, coronary artery disease, h ypercholesterolemia, generalized anxiety disorder, hearing loss, hypertension, weight disorder, actinic keratosis, asthma, diverticulitis, history of a myocardial infarction and vitamin D deficiency. ALLERGIES: THE PATIENT HAS MEDICATION ALLERGIES TO CIPROFLOXACIN, FLAGYL, PENICILLIN AND TAGAMET. SOCIAL HISTORY: The patient states that he was a smoker, but quit smoking 17 years ago and denies any type of substance abuse with recreational drugs. States he consumes alcohol 1-2 times per month. Admission Exam Per Admitting Provider Physical Exam Vital Signs (Past 24 Hours): PHYSICAL EXAMINATION: Skin: The patient's skin is normal in appearance. No open skin lesions or discharge. Eyes: Pupils are equal and reactive to light and accommodating. Extraocular movements are intact. Throat: Posterior oropharynx is clear with absence of edema, erythema or exudate. Cardiovascular Exam: The patient has a regular rate with an irregular rhythm with an S3 gallop heard every 30-40 seconds. There are no murmurs appreciated. Lungs: Auscultation of lung muñoz reveals clear breath sounds throughout, no wheezing, rales or rhonchi. Abdomen is obese, nondistended, nontender with normoactive bowel sounds. Extremities: Right Hip: The patient is able to flex to 100 degrees with associated groin pain. External rotation is to 45 degrees, internal rotation to 5 degrees. Impingement and scour tests are both positive. The patient has a slightly antalgic gait. He has a positive Stinchfield test, positive log roll test, has pain with active abduction and adduction without applied resistance. He is neurovascularly intact in the right lower extremity and there is no noted atrophy of the quadriceps musculature. Neurologic Exam: Cranial nerves 2 through 12 are intact. No motor or sensory deficit. Psychological/General Exam: The patient is alert and oriented x3 with proper grooming and hygiene. Principal Diagnosis Right hip osteoarthritis Discharge Exam Physical Exam Physical Exam: Right hip: No tenderness to palpation. No pain with Log roll, light internal / external rotation. Dressing clean, dry and intact. Able to easily perform SLRT. Mild edema but no erythema, ecchymosis, warmth or palpable deformity. Calf soft and supple. NV intact in entire Rt LE. Discharge Data Allergies Allergy/AdvReac Type Severity Reaction Status Date / Time ciprofloxacin Allergy Intermediate RASH, Verified 10/14/18 07:35 VISION TUNNLED, VERTIGO, NO TASTE cimetidine Allergy Mild DIAPHORESIS Verified 10/14/18 07:35 melon Allergy Mild Cantaloupe Verified 10/14/18 09:42 - Rash Consultations 10/15/18 08:00 Consult Case Management - Discharge Planning Routine Procedures Performed Operation Date: 10/14/18 09:15 Actual Procedures p Right Total Hip Arthroplasty, Uncemented(Right) - Max Miller MD Hospital Course (1) S/P total hip arthroplasty: Patient is post day 1 s/p Right Total hip arthroplasty. Did well over night and with PT/OT this AM. Is ready to be discharged home PT/OT with inpatient Total hip precautions. Ice with EZ wrap DVT prophy with Aspirin and TEDs Abduction pillow use for 6 wks post op Pain control with PO meds WBAT with walker assistance F/u at [facility] in 2 wks as previously scheduled Total Time Total Time Spent Total Time Spent (In Minutes): 20 Total Time Includes: Examination of the Patient, Discharge Planning and Medication Reconciliation Discharge Plan Discharge Items Patient Disposition: Home - Home Health Services Reason For Visit: Right Hip Osteoarthritis Discharge Diagnosis: Right hip osteoarthritis Discharge Goals: Decrease discomfort, Improve function and Increase independence Activity: As commented below Lifting: None Bathing: Keep incision dry Bathing Comment: May shower tomorrow Sexual Activity: Wait until after follow-up appointment Exercise/Sports: Wait until after follow-up appointment Driving/Machine Use Comment: No driving until cleared by orthopedic mechanic Weightbearing: Right weightbearing Weightbearing Comment: as tolerated with walker assistance Non-emergency contact: Primary Care Provider Call non-emergency contact if: you have any medication questions, your pain is not controlled, your temperature is above 101.5, your wound has increased drainage and your wound pain has increased Follow-up/Referrals: PCP,NO [Primary Care Provider] - Diet: Regular Addtl Provider Instructions: Post-operative Instructions Dear Patient and Family/Friends, Before you are discharged from the hospital, it is important to know what to expect when you get home after surgery. To that end, we have created this sheet of discharge instructions which covers many commonly asked questions. Make sure you go through this sheet in its entirety with your nurse before you are discharged. Please note that we will go over the specifics of your surgery and recovery when you return for your first post-operative visit. Sincerely, Dr. Miller MEDICATIONS: You will be discharged on medications for pain control and for blood clot prevention. Oxycodone 5 mg will be prescribed. You make take this medication every 4-6 hrs as needed for pain. This medication is a narcotic and may cause drowsiness and constipation. You will also be prescribed Diclofenac Sodium 75 mg. This medication is for pain control. It is an NSAID. You make taked 2 tabs by mouth twice daily for 30 days post operatively. Also you should purchase OTC extra strength Tylenol (500mg) to take with every other dose of the Oxycodone for the first few days post op, then may take 1-2 tabs every 6 hrs for pain control. Lastly, you will need to purchase Aspirin 81 mg to be taken twice daily for blood clot prevention. Pain Expect to be in a fair amount of pain after surgery. Remember, our goal is not to eliminate your pain, but to make it tolerable. It is a good idea to stay ahead of your pain by taking the medications you were prescribed once you get home. Typically, the pain starts improving 3-7 days after surgery. You should start weaning off the narcotic pain medication (oxycodone, hydrocodone, hydromorphone, morphine) as soon as your pain improves. Please call our office if your pain is not adequately controlled. Ice Ice your operative site at least 5 times a day for 15-30 minutes at a time. Make sure you have a thin cloth between the ice or cooling unit and your skin to prevent roldan bite. This is especially important if you received a nerve block. Continue icing your operative site for the first 5-7 days after surgery, then as needed. Diet/Nausea/Vomiting Start by drinking clear liquids and eating crackers. If you can tolerate this, then you may resume your normal diet. If you feel nauseated or vomit, take Zofran/ondansetron (if prescribed). Please call our office if you have intractable nausea or vomiting, or, if after hours, you may go to the Emergency Room for help. Constipation Constipation is a common side effect of narcotic pain medication. If you have not had a bowel movement within 2 days after surgery, we recommend purchasing an over the counter laxative such as Milk of Magnesia, Dulcolax, or Miralax from a local pharmacy, and taking it as instructed. Call our clinic if any questions. Slings and Braces If you were placed in a sling or brace, it must be worn at all times, including sleep. You may remove your sling or brace for physical therapy, home exercises, and showering. The length of time you will be in your brace and range of motion restrictions depends on what surgery you had; these details will be reviewed at your first post-operative appointment. Nerve block The anesthesia team sometimes places a nerve block to help with post-operative p ain control. This results in significant numbness and inability to move the extremity. The nerve block usually wears off in 8-12 hours, but sometimes can last up to 24 hours. Please call our office if you are still unable to move your extremity after 24 hours, unless you received a pain pump to take home. Nerve blocks typically wear off quickly, so start taking pain medication as soon as you start feeling soreness near your surgical site. Weight bearing and Range of Motion. Do not bear any weight through your operative extremity immediately after surgery. If you had upper extremity surgery, do not lift anything with that arm. If you are in a knee brace, keep it locked in place until your follow-up. We will discuss your weight bearing, range of motion, and lifting restrictions in detail at your first post-operative appointment. Continuous Passive Motion (CPM) Machine If you were prescribed a CPM machine, it will start after your first post- operative appointment, at which time we will give you instructions on the range of motion settings and duration of treatment Physical therapy You will be given a prescription for physical therapy or occupational therapy at your first post-operative appointment. Typically, patients start therapy within 1 week of surgery Wound care and showering We will inspect your wound at your first post-operative visit, and may do a dressing change at that time. Most patients will be in a water-proof dressing that is removed 14 days after surgery. It is normal to see some dried blood on the dressing. Do not remove your dressing, paper strips or sutures yourself unless you are given permission. Showering is allowed the day after surgery. Do not scrub or remove any dressings. The wound should not be submerged underwater (i.e. in a bathtub or pool) until 4 weeks after surgery FRANCINE stockings If you were given white stockings, these are to be worn at all times except to shower (on both legs) for the first 2 weeks after surgery. Driving You may not drive while taking narcotic pain medication or while in a cast, splint, sling or brace. You, the patient, need to make the final determination about when you are safe to drive, however, the earliest you may consider driving after surgery is below: Hand/Wrist/Elbow Surgery: 3 days Shoulder Surgery: 2 weeks Hip,/Knee/Ankle Surgery: 4 weeks Fracture repair: 6 weeks Return to Work Your return to work depends on what surgery was done and what type of work you do. Please bring any paperwork your employer needs completed to your first post-operative visit. Also, bring a description of your job duties, as this helps us to understand what risks you may face at work. Travel Avoid long distance travel (greater than 1 hour) in airplanes and cars for the first 6 weeks after surgery. If you must travel, you need to have a Doppler ultrasound done before you travel to rule out a blood clot in your legs. Follow-up You should have a follow-up appointment already scheduled 1-2 days after surgery. If not, please contact our office to make this appointment before you leave the hospital. When to call the office It is normal to have swelling and bruising in the limb that was operated on. This will improve with time. It is also normal to have fevers for the first 2 days after surgery. Reasons you should call your doctor include: Uncontrolled pain; Nausea, vomiting, or constipation that does not improve with medication; Fevers over 101.5, chills, sweats; Drainage or bleeding from the wound; Foul odor; Spreading areas of redness; Any other concerns Prescriptions: New diclofenac sodium 75 mg tablet,delayed release (DR/EC) 75 mg PO BID PRN (Reason: pain) 30 Days Qty: 60 RF: 1 oxycodone 5 mg tablet 5 mg PO .q-6 PRN (Reason: pain) Qty: 30 RF: 0 Continued atorvastatin 80 mg Tablet 80 mg PO QAM RF: 0 metoprolol succinate 50 mg Tablet Extended Release 24 Hr 50 mg PO QAM RF: 0 tramadol 50 mg Tablet 50 mg PO UD PRN (Reason: Breakthrough Pain) RF: 0 acetaminophen 500 mg Tablet 500 mg PO UD PRN (Reason: Pain) RF: 0 diclofenac sodium 75 mg Tablet,Delayed Release (Dr/Ec) 75 mg PO BID RF: 0 lorazepam 1 mg Tablet 1 mg PO DAILY RF: 0 telmisartan-hydrochlorothiazid 80-25 mg Tablet 1 tab PO QAM RF: 0 turmeric 400 mg Capsule 500 mg PO DAILY RF: 0 omeprazole 20 mg Capsule,Delayed Release(Dr/Ec) 20 mg PO HS RF: 0 Stand-Alone Forms: [employer], [facility]/Other Patient Handouts: Prediabetes, Diabetes Meal Planning Discharge Orders: Discharge Order (Routine); Ordered 10/15/18 Ordered By: Alex Hayes Admission Data Admit Date/Time: 10/14/18 11:04 Attending Provider: Max Miller Admit Provider: Max Miller Primary Care Provider: PCP,NO Service: Surgical Services Other Interventions: Discharge Summary Assessment (RN) Last Done: 10/15/18 11:10 Pending Studies at Discharge: No
== END 2018-10-15 13:11 | disposition home health service (06) | DRG 470 ==
LOC: ASU 07:08 → 3E 11:04

== ENCOUNTER 2020-07-08 17:18 | Inpatient (IN) ==
[2020-07-08] MEDS ORDERED: DEXAMETHASONE SOD INJ 10 MG/ML VIAL IV ONE (18:10)
[2020-07-08] MEDS ORDERED: ACETAMINOPHEN 500 MG TAB PO STA (18:10)
--- NOTE | 2020-07-08 18:14 | XRay Report ---
XR chest 1V portable HISTORY: 65 years-old Male SEPSIS acute sepsis COMPARISON: Chest radiographs 03/13/2011 TECHNIQUE: Portable AP view of the chest FINDINGS: Cardiac silhouette is enlarged. Pulmonary vascular congestion. Calcified plaque of the thoracic aorta . No pneumothorax. Mild right hemidiaphragmatic elevation. Patchy bilateral peripheral predominant ai rspace opacities. Calcified granuloma of the lateral left midlung. Degenerative changes of the should ers and spine. IMPRESSION: 1. Cardiomegaly with pulmonary vascular congestion. 2. Patchy peripheral predominant bilateral airspace opacities are suspicious for viral pneumonia. ACT 112: Negative or not required by law. The above report was generated using voice recognition software. It may contain grammatical, syntax o r spelling errors. Electronically signed by: Gary Treadwell M.D. 07/08/2020 6:13 PM
[2020-07-08] MEDS: SODIUM CHLORIDE 0.9% 1000ML 1,000 ML IV SCH (18:40)
[2020-07-08 18:42] LABS: Basophils # (auto) 0.01 K/uL (0-0.2); Basophils % (auto) 0.2 %; Hematocrit (blood only) 45.4 % (42-52); Hemoglobin 15.8 g/dL (14.0-18.0); Immature Granulocytes # (auto) 0.02 K/uL (0.00-0.02); Immature Granulocytes % (auto) 0.3 %; Lymphocytes # (auto) 0.64 K/uL (1.2-3.4); Lymphocytes % (auto) 10.2 %; Mean Corpuscular Hemoglobin 32.2 pg (25-34); Mean Corpuscular Hgb Conc 34.8 g/dL (32-36); Mean Corpuscular Volume 92.5 fL (80-100); Mean Platelet Volume 10.8 fL (7.4-10.4); Monocytes # (auto) 0.85 K/uL (0.11-0.59); Monocytes % (auto) 13.5 %; Neutrophils # (auto) 4.77 K/uL (1.4-6.5); Neutrophils % (auto) 75.8 %; Platelet Count 138 K/uL (130-400); RDW Coefficient of Variation 14.3 % (11.5-14.5); RDW Standard Deviation 48.5 fL (36.4-46.3); Red Blood Count 4.91 M/uL (4.7-6.1); White Blood Count 6.29 K/uL (4.8-10.8)
[2020-07-08 18:53] LABS: Partial Thromboplastin Time 27.6 Seconds (21.0-31.0); Prothrombin Time 10.6 Seconds (9.0-12.0)
[2020-07-08 19:08] LABS: Alanine Aminotransferase 54 U/L (12-78); Albumin Level 3.4 gm/dl (3.4-5.0); Aspartate Aminotransferase 77 U/L (15-37); BUN Creatinine Ratio 21.5 (10-20); Blood Urea Nitrogen 49 mg/dl (7-18); Calcium 8.3 mg/dl (8.5-10.1); Carbon Dioxide 28 mmol/L (21-32); Chloride 95 mmol/L (98-107); Est GFR (African American) 33.2; Est GFR (Non-African American) 28.6; Glucose 97 mg/dl (70-99); Magnesium 2.1 mg/dl (1.8-2.4); Potassium 3.1 mmol/L (3.5-5.1); Sodium 134 mmol/L (136-145)
[2020-07-08 19:13] LABS: Albumin Globulin Ratio 0.8 (0.9-2); Alkaline Phosphatase 34 U/L (45-117); Bilirubin,Total 0.6 mg/dl (0.2-1); Globulin 4.1 gm/dl (2.5-4.0); Total Protein 7.5 gm/dl (6.4-8.2); Troponin I 0.035 ng/ml (0-0.045)
[2020-07-08] MEDS ORDERED: ALBUT/IPRATROP 3MG/0.5MG NEB 3 ML VIAL NEB ONE (19:50)
--- NOTE | 2020-07-08 21:07 | History & Physical Report ---
Date of Service July 08, 2020 Assessment & Plan (1) Pneumonia due to COVID-19 virus: Pneumonia due to COVID-19 virus with hypoxia- Positive test over 7 days ago at [facility] with no previous treatment. Dexamethasone 6 mg IV every morning, with first dose given in ED Duonebs every 4 hours while awake and every 2 hours when necessary. Nasal cannula oxygen, titrated to oxy mask, for pulse ox goal 92% Guaifenesin extended release 600 mg p.o. twice daily Azithromycin 500 mg IV daily Zinc sulfate 220 mg p.o. daily Present on Admission?: Yes (2) Hypoxia: See above Present on Admission?: Yes (3) Acute kidney injury: Creatinine 2.38 upon admission, with recent 1.36. Initially given IV fluids, but later required furosemide 40 mg IV due to worsening hypoxia Hold telmisartan/HCTZ and diclofenac Follow serial BMP and magnesium levels Present on Admission?: Yes (4) CAD (coronary artery disease), [place] coronary artery: CAD/stented coronary artery/hypertension- The patient will be admitted to telemetry for serial cardiac enzymes, serial EKG's, cardiac rhythm monitoring. Continue aspirin 81 mg daily, metoprolol succinate 50 mg daily, nitroglycerin sublingual as needed Given Lasix 40 mg IV after initial IV fluids given in the ED due to declining pulse ox Present on Admission?: Yes (5) Osteoarthritis: Hold diclofenac due to acute kidney injury Present on Admission?: Yes (6) Hypertension: See above Present on Admission?: Yes (7) Anxiety: Continue lorazepam as needed Present on Admission?: Yes (8) Hyperlipidemia: Continue atorvastatin 80 mg every morning Present on Admission?: Yes History of Present Illness Chief Complaint: The patient presents to the emergency department with worsening shortness of breath and decreased oral intake over the past week since having a diagnosis of COVID-19 infection 1 week ago at [facility]. Primary Care Provider: NO PCP The patient is a 65-year-old male with a past medical history including hyperlipidemia, anxiety, hypertension, CAD, erectile dysfunction and arthritis who was diagnosed with COVID-19 infection 1 week ago at [facility]. Since that time he has become progressively more short of breath, more fatigued, generalized weakness and had decreased oral intake. He presented to the emergency department tonight due to the insistence of his family. Pulse ox in the emergency department was as low as 86% on room air, and initially improved with nasal cannula oxygen, which had to be titrated to oxy mask. Imaging studies: Chest x-ray showed cardiomegaly with pulmonary vascular congestion. Patchy peripheral predominant bilateral airspace opacities suspicious for viral pneumonia. Abnormal laboratories: AST 77, sodium 134, potassium 3.1, creatinine 2.38. In the emergency department patient received dexamethasone 6 mg IV, Tylenol 1 g p.o. and was started on normal saline 150 mils per hour. Allergies Allergy/AdvReac Type Severity Reaction Status Date / Time ciprofloxacin Allergy Intermediate RASH, Verified 07/08/20 19:40 VISION TUNNLED, VERTIGO, NO TASTE cimetidine Allergy Mild DIAPHORESIS Verified 07/08/20 19:40 melon Allergy Mild Cantaloupe Verified 07/08/20 19:40 - Rash Home Medications Medication Instructions Recorded Confirmed Type aspirin 81 mg tablet,delayed 81 mg PO QAM 01/21/19 07/08/20 History release acetaminophen 500 mg tablet 500 mg PO UD PRN 03/22/20 07/08/20 History atorvastatin 80 mg tablet 80 mg PO QAM #90 tab 03/22/20 07/08/20 Rx lorazepam 1 mg tablet 1 mg PO TID PRN tab 03/22/20 07/08/20 History metoprolol succinate 50 mg 50 mg PO QAM #90 tab 03/22/20 07/08/20 Rx tablet,extended release 24 hr nitroglycerin 0.4 mg sublingual 0.4 mg SL Q5M PRN #25 tab 03/22/20 07/08/20 Rx tablet sildenafil (pulm.hypertension) 20 20 mg PO DAILY PRN tab 03/22/20 07/08/20 History mg tablet telmisartan 80 1 tab PO QAM #90 tab 03/22/20 07/08/20 Rx mg-hydrochlorothiazide 25 mg tablet diclofenac sodium 75 mg PO BID 07/08/20 07/08/20 History Past Med/Surg History Medical History (Updated 07/09/20 @ 03:57 by Albert Moya MD) Anxiety CAD (coronary artery disease), [place] coronary artery Hiatal hernia History of heart attack 2006/STENT X1 ([facility] 2 ATTEMPTS THEN TX TO [place])/[facility] History of skin cancer Hyperlipidemia Hypertension Osteoarthritis Surgical History History of arthroscopy of left knee History of arthroscopy of right knee History of cardiac cath 2007, STENT X1 ([facility] 2 ATTEMPTS...TX TO [place] FOR PLACEMENT OF STENT) History of colonoscopy History of skin cancer RESECTED History of tonsillectomy History of tooth extraction Family History Sister Family history of breast cancer Father Family history of leukemia Other Family history of skin cancer Social History Smoking Status: Former smoker Cigarettes Per Day: ~1/2 PPD x 25 YEARS; Second Hand Exposure: No; Do You Dip or Chew Tobacco: No; Tobacco Cessation Education Requested by Patient: No Hx Alcohol Use: Yes Alcohol type: beer Hx Substance Use: No Preferred Language: Tajik Communication Ability: Effective De Alcoholizer Required: No Beliefs That Will Affect Care: None marital status: Current Living Situation: Spouse Other Information That Helps Us Care for You: No Feels Safe at Home: Yes Safety Concerns: Feels Safe At This Time Assistive Devices: None Review of Systems Review of Systems: The patient denies chest pain, palpitations, cough, lower extremity swelling, sore throat, fevers, chills, sweats, nausea, vomiting, diarrhea , constipation, abdominal pain, pelvic pain, blood in urine or stool, dysuria, urinary frequency or urgency, lightheadedness, dizziness, headache, memory loss, loss of consciousness, rash, abnormal bruising or bleeding, imbalance, focal weakness, numbness or tingling in arms or legs, back or neck pain, or night sweats. The review of systems is otherwise negative other than for that already noted above, and at least 10 systems have been reviewed. Physical Exam Physical Exam: The patient is awake, alert and oriented 3, well developed and well nourished, normocephalic and atraumatic, lying in bed and in no acute distress. HEENT--PERRL, EOMI, mucous membranes and oropharynx normal. Neck--supple. No JVD. No bruits. Thyroid normal, trachea midline, no adenopathy. Heart--normal S1 and S2. No murmurs, rubs or gallops. Lungs--coarse breath sounds bilaterally. No respiratory distress, no accessory muscle use. Abdomen--normal bowel sounds and soft. Nontender. Nondistended. Morbid obesity Extremities--no cyanosis or clubbing. No edema. Dermatologic--normal skin turgor, normal color, no abnormal lymph nodes, no rash. Neurologic--cranial nerves II through XII grossly intact. Rheumatologic--normal range of motion. Psychiatric--normal affect. Results & Data Results & Data ([facility]) Vital Signs (Past 12 Hours) Vital Signs Temp Pulse Pulse Resp BP Pulse Ox 07/08/20 20:30 75 21 143/67 H 91 07/08/20 20:15 73 21 118/86 94 07/08/20 20:12 75 18 91 07/08/20 20:10 77 16 91 07/08/20 20:00 98.2 F 79 26 H 103/65 90 07/08/20 19:56 81 18 119/61 92 07/08/20 19:50 82 90 07/08/20 19:41 96 H 22 92 07/08/20 19:39 97 H 26 H 95/65 L 90 07/08/20 19:23 104 H 24 93/63 L 90 07/08/20 19:21 106 H 21 75/50 L 07/08/20 19:00 103 H 22 89 L 07/08/20 18:52 88 L 07/08/20 17:54 100.0 F H 97 H 24 106/70 86 L 07/08/20 17:53 22 94 Laboratory Results Laboratory Results WBC 6.29 K/uL (4.8-10.8) 07/08/20 18:25 RBC 4.91 M/uL (4.7-6.1) 07/08/20 18:25 Hgb 15.8 g/dL (14.0-18.0) 07/08/20 18:25 Hct 45.4 % (42-52) 07/08/20 18:25 MCV 92.5 fL (80-100) 07/08/20 18:25 MCH 32.2 pg (25-34) 07/08/20 18:25 MCHC 34.8 g/dL (32-36) 07/08/20 18:25 RDW Std Deviation 48.5 fL (36.4-46.3) H 07/08/20 18:25 RDW Coeff of Fernanda 14.3 % (11.5-14.5) 07/08/20 18:25 Plt Count 138 K/uL (130-400) 07/08/20 18:25 MPV 10.8 fL (7.4-10.4) H 07/08/20 18:25 Immature Gran % (Auto) 0.3 % 07/08/20 18: Neut % (Auto) 75.8 % 07/08/20 18:25 Lymph % (Auto) 10.2 % 07/08/20 18:25 [place] % (Auto) 13.5 % 07/08/20 18:25 Eos % (Auto) 0.0 % 07/08/20 18: Baso % (Auto) 0.2 % 07/08/20 18: Neut # (Auto) 4.77 K/uL (1.4-6.5) 07/08/20 18:25 Lymph # (Auto) 0.64 K/uL (1.2-3.4) L 07/08/20 18:25 [place] # (Auto) 0.85 K/uL (0.11-0.59) H 07/08/20 18:25 Eos # (Auto) 0.00 K/uL (0-0.5) 07/08/20 18:25 Baso # (Auto) 0.01 K/uL (0-0.2) 07/08/20 18: Immature Gran # (Auto) 0.02 K/uL (0.00-0.02) 07/08/20 18:25 PT 10.6 Seconds (9.0-12.0) 07/08/20 18:25 INR 1.0 (0.9-1.1) 07/08/20 18:25 APTT 27.6 Seconds (21.0-31.0) 07/08/20 18: PTT Ratio 1.0 07/08/20 18:25 Sodium 134 mmol/L (136-145) L 07/08/20 18:25 Potassium 3.1 mmol/L (3.5-5.1) L 07/08/20 18:25 Chloride 95 mmol/L (98-107) L 07/08/20 18:25 Carbon Dioxide 28 mmol/L (21-32) 07/08/20 18:25 Anion Gap 11.0 (3-11) 07/08/20 18:25 BUN 49 mg/dl (7-18) H 07/08/20 18:25 Creatinine 2.28 mg/dl (0.6-1.4) H 07/08/20 18:25 Est Cr Clr Drug Dosing Not Reportable 07/08/20 18:25 Est GFR ( Amer) 33.2 07/08/20 18:25 Est GFR (Non-Af Amer) 28.6 07/08/20 18:25 BUN/Creatinine Ratio 21.5 (10-20) H 07/08/20 18:25 Glucose 97 mg/dl (70-99) 07/08/20 18:25 Lactate 1.3 mmol/L (0.4-2.0) 07/08/20 18:25 Calcium 8.3 mg/dl (8.5-10.1) L 07/08/20 18:25 Magnesium 2.1 mg/dl (1.8-2.4) 07/08/20 18:25 Total Bilirubin 0.6 mg/dl (0.2-1) 07/08/20 18:25 AST 77 U/L (15-37) H 07/08/20 18:25 ALT 54 U/L (12-78) 07/08/20 18:25 Alkaline Phosphatase 34 U/L (45-117) L 07/08/20 18:25 Troponin I 0.035 ng/ml (0-0.045) 07/08/20 18:25 Total Protein 7.5 gm/dl (6.4-8.2) 07/08/20 18:25 Albumin 3.4 gm/dl (3.4-5.0) 07/08/20 18:25 Globulin 4.1 gm/dl (2.5-4.0) H 07/08/20 18:25 Albumin/Globulin Ratio 0.8 (0.9-2) L 07/08/20 18:25 Procalcitonin 0.08 ng/ml (0-0.5) 07/08/20 18:25 Diagnostic Findings [facility], [phone] XRay Report Patient: SIMIN SALAZAR Date: 07/08/20#: [id number]: [address] [facility]:[id number]: Date: [address] [place] [address] Zip: [place], [place] [address]Aqp: [phone]: EDSex: MRoom/Bed:Att Phy:Diagnosis: WEAKNESS, FATIGUE, COVID +Niki Phy: PCP,NOService Date: 07/08/20Fam Phy:Interpreting Phy: Robbi TreadwellAdmit Phy: Ordering Phy: Kerri Soriano M.D. cc: ~ XR chest 1V portable HISTORY: 65 years-old Male SEPSIS acute sepsis COMPARISON: Chest radiographs 03/13/2011 TECHNIQUE: Portable AP view of the chest FINDINGS: Cardiac silhouette is enlarged. Pulmonary vascular congestion. Calcified plaque of the thoracic aorta. No pneumothorax. Mild right hemidiaphragmatic elevation. Patchy bilateral peripheral predominant airspace opacities. Calcified granuloma of the lateral left midlung. Degenerative changes of the shoulders and spine. IMPRESSION: 1. Cardiomegaly with pulmonary vascular congestion. 2. Patchy peripheral predominant bilateral airspace opacities are suspicious for viral pneumonia. ACT 112: Negative or not required by law. The above report was generated using voice recognition software. It may contain grammatical, syntax or spelling errors. Electronically signed by: Gary Treadwell M.D. 07/08/2020 6:13 PM Dictated: 07/08/201810Transcribed: 07/08/201810 Code Status & VTE Plan Code Status Full code VTE Prophylaxis Plan VTE Prophylaxis will be ordered: Yes PG Care Time/CCT Total # of Minutes Spent Total Time Spent with Patient: Total time spent is greater than 50% in co ordination of care (as documented) at patient's floor/unit and/or counseling patient: Coding Level of Care Code 46276 Initial Inpt Care Lvl 3 Diagnoses Pneumonia due to COVID-19 virus U07.1; J12.82 Hypoxia R09.02 Acute kidney injury N17.9 CAD (coronary artery disease), [place] coronary artery I25.10 Osteoarthritis M19.90 Hypertension I10 Anxiety F41.9 Hyperlipidemia E78.5
[2020-07-08] MEDS ORDERED: POTASSIUM CHLORIDE CRTAB 20 MEQ TABCR PO STA (23:11)
[2020-07-08] MEDS ORDERED: ONDANSETRON INJ 2 MG/ML 2 ML VIAL IV PRN (23:11)
[2020-07-08] MEDS ORDERED: NITROGLYCERIN SL 0.4 MG/TAB TAB SL PRN (23:11)
[2020-07-08] MEDS ORDERED: SODIUM CHLORIDE 0.9% 1000ML 1,000 ML IV SCH (23:11)
[2020-07-08] MEDS ORDERED: ACETAMINOPHEN 325 MG TAB PO PRN (23:11)
[2020-07-09] MEDS: guaiFENesin 600 MG TABCR PO SCH ×3 (00:22→20:39)
[2020-07-09] MEDS: SODIUM CHLORIDE 0.9% 1000ML 1,000 ML IV SCH (00:32)
[2020-07-09] MEDS ORDERED: FUROSEMIDE 40 MG in SYRINGE 0 ML IV ONE ×2 (03:01→07:05)
[2020-07-09] MEDS ORDERED: POTASSIUM CHLORIDE CRTAB 20 MEQ TABCR PO STA (03:01)
[2020-07-09 06:49] LABS: Albumin Level 3.1 gm/dl (3.4-5.0); BUN Creatinine Ratio 27.7 (10-20); Calcium 7.7 mg/dl (8.5-10.1); Creatinine Clr Calc Pharmacy 53.4 ml/min; Est GFR (African American) 45.1; Est GFR (Non-African American) 38.9; Magnesium 2.2 mg/dl (1.8-2.4); Potassium 3.5 mmol/L (3.5-5.1)
[2020-07-09 06:55] LABS: Albumin Globulin Ratio 0.7 (0.9-2); Bilirubin,Total 0.7 mg/dl (0.2-1); Globulin 4.5 gm/dl (2.5-4.0); Total Protein 7.6 gm/dl (6.4-8.2); Troponin I 0.019 ng/ml (0-0.045)
[2020-07-09] MEDS ORDERED: ALBUT/IPRATROP 3MG/0.5MG NEB 3 ML VIAL NEB SCH (07:00)
[2020-07-09 07:44] LABS: Base Excess ABG 0.7 mEq/L (-9-1.8); HCO3 ABG 24 mmol/L (19-24); Oxygen Saturation ABG 94.6 % (90-95); PCO2 ABG 33 mmHg (35-46); PO2 ABG 66 mmHg (80-95); pH ABG 7.47 (7.35-7.45)
[2020-07-09 07:45] LABS: Allen Test Pos (Pos)
[2020-07-09] MEDS: ASPIRIN 81 MG ECTAB PO SCH (08:08)
[2020-07-09] MEDS: ATORVASTATIN 40 MG TAB PO SCH (08:08)
[2020-07-09] MEDS: METOPROLOL SUCC 50MG EXT REL TAB PO SCH (08:09)
[2020-07-09] MEDS: dexAMETHasone 6 MG in SYRINGE 0 ML IV SCH (08:09)
[2020-07-09] MEDS: AZITHROMYCIN 500 MG in DEXTROSE 5% 250 ML IV SCH (08:09)
[2020-07-09] MEDS: ZINC SULFATE 220 MG CAPSULE PO SCH (08:09)
--- NOTE | 2020-07-09 08:57 | Electrocardiogram Report ---
Test Reason : Blood Pressure : / mmHG Vent. Rate : 087 BPM Atrial Rate : 087 BPM P-R Int : 156 ms QRS Dur : 090 ms QT Int : 396 ms P-R-T Axes : 000 -12 021 degrees QTc Int : 476 ms Sinus rhythm with Premature supraventricular complexes Otherwise normal ECG When compared with ECG of 22-SEP-2018 11:00, Premature supraventricular complexes are now Present Vent. rate has increased BY 34 BPM Confirmed by Kelvin Lundy ([id number]) on 07/09/2020 8:57:15 AM Referred By: REFERRED SELF Confirmed By:Kelvin Lundy
--- NOTE | 2020-07-09 12:53 | Hospitalist Progress Note ---
Date of Service July 09, 2020 Assessment & Plan (1) Pneumonia due to COVID-19 virus: Pneumonia due to COVID-19 virus with hypoxia-feeling improvement already Positive test over 7 days [facility] with no previous treatment. Dexamethasone 6 mg IV every morning, with first dose given in ED Duonebs every 4 hours while awake and every 2 hours when necessary. Nasal cannula oxygen, titrated to oxy mask, for pulse ox goal 92% Guaifenesin extended release 600 mg p.o. twice daily Azithromycin 500 mg IV daily Zinc sulfate 220 mg p.o. daily (2) Hypoxia: See above (3) Acute kidney injury: Creatinine 2.38 upon admission, with recent 1.36 [employer] Has improved to 1.7 today Initially given IV fluids, but later required furosemide 40 mg IV due to worsening hypoxia Hold telmisartan/HCTZ and diclofenac Follow serial BMP and magnesium levels (4) CAD (coronary artery disease), [place] coronary artery: CAD/stented coronary artery/hypertension- The patient will be admitted to telemetry for serial cardiac enzymes, serial EKG's, cardiac rhythm monitoring. Continue aspirin 81 mg daily, metoprolol succinate 50 mg daily, nitroglycerin sublingual as needed Given Lasix 40 mg IV after initial IV fluids given in the ED due to declining pulse ox (5) Osteoarthritis: Hold diclofenac due to acute kidney injury (6) Hypertension: See above (7) Anxiety: Continue lorazepam as needed (8) Hyperlipidemia: Continue atorvastatin 80 mg every morning Admission and Anticipated Discharge Date Admission Date: July 08, 2020 Subjective Pt states he feels much better today. He does not feel SOB at all, but when the O2 is off, his numbers drop. He states he is "night and day" from yesterday. No chest pain. Tolerating PO without issue. Pt denies fever, abd pain, n/v/c/d, LE pain or swelling. Review of Systems Review of Systems: Pertinent positives and negatives reviewed in HPI--all others negative Physical Exam Constitutional: WD/WN, vitals as above Eyes: normal visual muñoz by confrontation and + anicteric sclerae Neck: normal visual inspection and trachea midline Respiratory: normal respiratory effort; no respiratory distress Auscultation: + crackles; no wheezes Cardiovascular: Rate/Rhythm: regular rate and regular rhythm Gastrointestinal (Abdomen): Inspection/Auscultation: abdomen not distended Percussion/Palpation: abdomen soft; abdomen nontender Musculoskeletal: Head/Neck/Chest: normocephalic and head atraumatic negative for edema, peripheral pulses intact Skin: no rashes, warm and dry Neurologic: awake; not confused Speech / Cognition: normal speech Psychiatric: A+Ox3, euthymic affect Results & Data [facility]) Vital Signs (Past 12 Hours) Vital Signs Temp Pulse Pulse Resp BP BP Pulse Ox 07/09/20 11:11 36.6 C 79 19 112/62 92 07/09/20 08:00 92 H 07/09/20 07:50 91 H 24 91 07/09/20 07:35 36.7 C 92 H 20 115/62 90 07/09/20 06:44 74 12 122/69 88 L 07/09/20 05:00 74 12 137/91 90 07/09/20 04:00 92 07/09/20 03:00 73 23 110/62 89 L 07/09/20 02:00 70 112/62 88 L 07/09/20 01:00 74 29 H 123/66 90 PG Care Time/CCT Total # of Minutes Spent Total Time Spent with Patient: Total time spent is greater than 50% in coordination of care (as documented) at patient's floor/unit and/or counseling patient: Coding Level of Care Code 56746 Subseq Hosp Care Lvl 3 Diagnoses Pneumonia due to COVID-19 virus U07.1; J12.82 Hypoxia R09.02 Acute kidney injury N17.9 CAD (coronary artery disease), [place] coronary artery I25.10 Osteoarthritis M19.90 Hypertension I10 Anxiety F41.9 Hyperlipidemia E78.5
[2020-07-09] MEDS ORDERED: RAPID SEQUENCE INDUCTION BAG ONE (13:11)
[2020-07-09 15:02] LABS: Appearance Urine Cloudy (Clear); Bacteria Urine Automated 4+ (Negative); Bilirubin Urine Negative (Negative); Blood Urine Negative (Negative); Color Urine Yellow; Epithelial Cell Urine Auto 0-5 /lpf (0-5); Glucose Urine UA Negative (Negative); Ketones Urine Negative (Negative); Leukocyte Esterase Urine 2+ (Negative); Nitrite Urine Positive (Negative); Protein Urine Negative (Negative); RBC Urine Automated 0-4 /hpf (0-4); Specific Gravity Urine 1.016 (1.000-1.030); Urobilinogen Urine Negative (Negative); WBC Urine Automated >30 /hpf (0-5)
[2020-07-09] MEDS: LORazepam 1 MG TAB PO PRN ×2 (16:42→23:11)
--- NOTE | 2020-07-09 21:26 | Emergency Department Note ---
Impression & Plan Pneumonia due to COVID-19 virus, Hypoxia ED Provider Note NAME: SIMIN SALAZAR AGE: 65 SEX: M ARRIVES VIA: Ambulance INFORMANT: Patient, ED PROVIDER(S): Kerri Soriano MD CHIEF COMPLAINT: SOB, fever, COVID + PLAN: Disposition: Admit Condition: Fair Referral: Hospitalist MEDICAL DECISION MAKING: This patient was evaluated and appeared to be in some discomfort. IV access was obtained and laboratory work was drawn. Patient placed on environmental monitoring technician and noted to be in a sinus tachycardia at 103 bpm. Patient is noted to be high toxic and was placed on nasal cannula oxygen. Patient was barely maintained on nasal cannula oxygen and an order for high flow oxygen was placed. He was given a DuoNeb treatment as well as IV Decadron. Chest x-ray is consistent with a viral pneumonia pattern. He was given 1000 mg of p.o. Tylenol. Pt's Troponin is elevated at 2.28. Patient's case was discussed with the hospitalist service who will evaluate the for admission and further management. Triage Nursing notes reviewed. Prior medical records reviewed Vital Signs: reviewed and remarkable for tachycardia, hypoxia Differential diagnosis: Reactive airway disease, COVID, pneumonia, pneumothorax, COPD, CHF, infections, cardiac ischemia, pulmonary embolism, musculoskeletal, gastrointestinal, as well as other pathologies. ER treatment provided: IV normal saline solution DuoNeb treatment, IV Decadron Diagnostics interpreted by me: ECG: Normal sinus rhythm with premature supraventricular complexes at [address] abnormalities. Prolonged QT interval at 476. Cardiac Monitoring: An order for cardiac monitoring was placed and the patient is noted to be in a sinus tachycardia 103 bpm. Laboratory studies: See below Imaging studies: XR chest 1V portable HISTORY: 65 years-old Male SEPSIS acute sepsis COMPARISON: Chest radiographs 03/13/2011 TECHNIQUE: Portable AP view of the chest FINDINGS: Cardiac silhouette is enlarged. Pulmonary vascular congestion. Calcified plaque of the thoracic aorta. No pneumothorax. Mild right hemidiaphragmatic elevation. Patchy bilateral peripheral predominant airspace opacities. Calcified granuloma of the lateral left midlung. Degenerative changes of the shoulders and spine. IMPRESSION: 1. Cardiomegaly with pulmonary vascular congestion. 2. Patchy peripheral predominant bilateral airspace opacities are suspicious for viral pneumonia. ACT 112: Negative or not required by law. The above report was generated using voice recognition software. It may contain grammatical, syntax or spelling errors. Electronically signed by: Gary Treadwell M.D. 07/08/2020 6:13 PM Dictated: 07/08/201810Transcribed: 07/08/201810 Consultation(s): Hospitalist HPI: 65/M arrives for evaluation of Increased work of breathing, fever and cough. Patient was diagnosed as Covid positive yesterday. He has become increasingly ill.He states his is also ill but much less so. He denies any vomiting, chest pain, abdominal pain or diarrhea. 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 ROS: See above HPI for pertinent positives & negatives. A total of 10 systems reviewed and were otherwise negative. PAST MEDICAL HISTORY:See Below PAST SURGICAL HISTORY:See Below FAMILY HISTORY:See Below SOCIAL HISTORY:See Below HOME MEDICATIONS:See Below ALLERGIES:See Below VITALS:See Below PHYSICAL EXAMINATION: Vital signs reviewed. General: Chronically ill-appearing, morbidly 65-year-old male, in some discomfort, sitting up at the bedside HEENT: No scleral icterus, PERRLA, neck supple. Atraumatic. Cardiovascular: Tachycardic but regular, no extra sounds Pulmonary: Clear to auscultation bilaterally, normal work of breathing. Abdomen: Soft, Obese, nontender, nondistended, positive bowel sounds. Musculoskeletal: Atraumatic, no peripheral edema. Neurologic: Patient awake alert and oriented x 3 Skin: Warm, dry, no rash Kerri Soriano MD Past Med/Surg History Medical History Anxiety CAD (coronary artery disease), [place] coronary artery Hiatal hernia History of heart attack 2006/STENT X1 ([facility] 2 ATTEMPTS THEN TX TO [place])/KIP FAYE History of skin cancer Hyperlipidemia Hypertension Osteoarthritis Surgical History History of arthroscopy of left knee History of arthroscopy of right knee History of cardiac cath 2006, STENT X1 ([facility] 2 ATTEMPTS...TX TO [place] FOR PLACEMENT OF STENT) History of colonoscopy History of skin cancer RESECTED History of tonsillectomy History of tooth extraction Family History Sister Family history of breast cancer Father Family history of leukemia Other Family history of skin cancer Social History Smoking Status: Former smoker Cigarettes Per Day: ~1/2 PPD x 25 YEARS; Second Hand Exposure: No; Do You Dip or Chew Tobacco: No; Tobacco Cessation Education Requested by Patient: No Hx Alcohol Use: Yes Alcohol type: beer Hx Substance Use: No Preferred Language: Palauan Communication Ability: Effective Glass Worker Required: No Beliefs That Will Affect Care: None marital status: Current Living Situation: Spouse Other Information That Helps Us Care for You: No Feels Safe at Home: Yes Safety Concerns: Feels Safe At This Time Assistive Devices: Oxygen - Continuous Allergies Allergies Allergy/AdvReac Type Severity Reaction Status Date / Time ciprofloxacin Allergy Intermediate RASH, Verified 07/08/20 19:40 VISION TUNNLED, VERTIGO, NO TASTE cimetidine Allergy Mild DIAPHORESIS Verified 07/08/20 19:40 melon Allergy Mild Cantaloupe Verified 07/08/20 19:40 - Rash Home Meds Home Medications Medication Instructions Recorded Confirmed aspirin 81 mg tablet,delayed 81 mg PO QAM 01/21/19 07/08/20 release acetaminophen 500 mg tablet 500 mg PO UD PRN 03/22/20 07/08/20 lorazepam 1 mg tablet 1 mg PO TID PRN tab 03/22/20 07/08/20 sildenafil (pulm.hypertension) 20 20 mg PO DAILY PRN tab 03/22/20 07/08/20 mg tablet diclofenac sodium 75 mg PO BID 07/08/20 07/08/20 Previous Rx's Medication Instructions Recorded atorvastatin 80 mg tablet 80 mg PO QAM #90 tab 03/22/20 metoprolol succinate 50 mg 50 mg PO QAM #90 tab 03/22/20 tablet,extended release 24 hr nitroglycerin 0.4 mg sublingual 0.4 mg SL Q5M PRN #25 tab 03/22/20 tablet telmisartan 80 1 tab PO QAM #90 tab 03/22/20 mg-hydrochlorothiazide 25 mg tablet Results & Data (ED) Home Medications Current Medication List: was personally reviewed by me Laboratory Data Attestation: I reviewed the patient's lab results. Result diagrams: 07/11/20 05:31 07/11/20 05:31 Lab Results 07/08/20 07/08/20 07/08/20 Range/Units 18:25 18:25 18:25 WBC 6.29 (4.8-10.8) K/uL RBC 4.91 (4.7-6.1) M/uL Hgb 15.8 (14.0-18.0) g/dL Hct 45.4 (42-52) % MCV 92.5 (80-100) fL MCH 32.2 (25-34) pg MCHC 34.8 (32-36) g/dL RDW Std Deviation 48.5 H (36.4-46.3) fL RDW Coeff of Fernanda 14.3 (11.5-14.5) % Plt Count 138 (130-400) K/uL MPV 10.8 H (7.4-10.4) fL Immature Gran % (Auto) 0.3 % Neut % (Auto) 75.8 % Lymph % (Auto) 10.2 % Woods % (Auto) 13.5 % Eos % (Auto) 0.0 % Baso % (Auto) 0.2 % Neut # (Auto) 4.77 (1.4-6.5) K/uL Lymph # (Auto) 0.64 L (1.2-3.4) K/uL Woods # (Auto) 0.85 H (0.11-0.59) K/uL Eos # (Auto) 0.00 (0-0.5) K/uL Baso # (Auto) 0.01 (0-0.2) K/uL Immature Gran # (Auto) 0.02 (0.00-0.02) K/uL PT 10.6 (9.0-12.0) Seconds INR 1.0 (0.9-1.1) APTT 27.6 (21.0-31.0) Seconds PTT Ratio 1.0 Sodium 134 L (136-145) mmol/L Potassium 3.1 L (3.5-5.1) mmol/L Chloride 95 L (98-107) mmol/L Carbon Dioxide 28 (21-32) mmol/L Anion Gap 11.0 (3-11) BUN 49 H (7-18) mg/dl Creatinine 2.28 H (0.6-1.4) mg/dl Est Cr Clr Drug Dosing Not Reportable Est GFR ( Amer) 33.2 Est GFR (Non-Af Amer) 28.6 BUN/Creatinine Ratio 21.5 H (10-20) Glucose 97 (70-99) mg/dl Lactate (0.4-2.0) mmol/L Calcium 8.3 L (8.5-10.1) mg/dl Magnesium 2.1 (1.8-2.4) mg/dl Total Bilirubin 0.6 (0.2-1) mg/dl AST 77 H (15-37) U/L ALT 54 (12-78) U/L Alkaline Phosphatase 34 L (45-117) U/L Troponin I 0.035 (0-0.045) ng/ml Total Protein 7.5 (6.4-8.2) gm/dl Albumin 3.4 (3.4-5.0) gm/dl Globulin 4.1 H (2.5-4.0) gm/dl Albumin/Globulin Ratio 0.8 L (0.9-2) Procalcitonin (0-0.5) ng/ml 07/08/20 07/08/20 Range/Units 18:25 18:25 WBC (4.8-10.8) K/uL RBC (4.7-6.1) M/uL Hgb (14.0-18.0) g/dL Hct (42-52) % MCV (80-100) fL MCH (25-34) pg MCHC (32-36) g/dL RDW Std Deviation (36.4-46.3) fL RDW Coeff of Fernanda (11.5-14.5) % Plt Count (130-400) K/uL MPV (7.4-10.4) fL Immature Gran % (Auto) % Neut % (Auto) % Lymph % (Auto) % Woods % (Auto) % Eos % (Auto) % Baso % (Auto) % Neut # (Auto) (1.4-6.5) K/uL Lymph # (Auto) (1.2-3.4) K/uL Woods # (Auto) (0.11-0.59) K/uL Eos # (Auto) (0-0.5) K/uL Baso # (Auto) (0-0.2) K/uL Immature Gran # (Auto) (0.00-0.02) K/uL PT (9.0-12.0) Seconds INR (0.9-1.1) APTT (21.0-31.0) Seconds PTT Ratio Sodium (136-145) mmol/L Potassium (3.5-5.1) mmol/L Chloride (98-107) mmol/L Carbon Dioxide (21-32) mmol/L Anion Gap (3-11) BUN (7-18) mg/dl Creatinine (0.6-1.4) mg/dl Est Cr Clr Drug Dosing Est GFR ( Amer) Est GFR (Non-Af Amer) BUN/Creatinine Ratio (10-20) Glucose (70-99) mg/dl Lactate 1.3 (0.4-2.0) mmol/L Calcium (8.5-10.1) mg/dl Magnesium (1.8-2.4) mg/dl Total Bilirubin (0.2-1) mg/dl AST (15-37) U/L ALT (12-78) U/L Alkaline Phosphatase (45-117) U/L Troponin I (0-0.045) ng/ml Total Protein (6.4-8.2) gm/dl Albumin (3.4-5.0) gm/dl Globulin (2.5-4.0) gm/dl Albumin/Globulin Ratio (0.9-2) Procalcitonin 0.08 (0-0.5) ng/ml Administered Medications Aspirin (Aspirin 81 Mg Ectab) 81 mg PO [facility] Stop: 08/08/20 08:59 Last Admin: 07/11/20 07:46 Dose: 81 mg Documented by: [id number] Admin: 07/10/20 07:27 Dose: 81 mg Documented by: [id number] Admin: 07/09/20 08:08 Dose: 81 mg Documented by: [id number] Atorvastatin Calcium (Atorvastatin 40 Mg Tab) 80 mg PO [facility] Stop: 08/08/20 08:59 Last Admin: 07/11/20 07:46 Dose: 80 mg Documented by: [id number] Admin: 07/10/20 07:27 Dose: 80 mg Documented by: [id number] Admin: 07/09/20 08:08 Dose: 80 mg Documented by: [id number] Enoxaparin Sodium (Enoxaparin Inj 40 Mg/0.4 Ml Syr) 40 mg SQ Q12 [facility]ER[facility] Stop: 08/09/20 18:59 Last Admin: 07/11/20 07:43 Dose: 40 mg Documented by: [id number] Admin: 07/10/20 22:33 Dose: 40 mg Documented by: [id number] Dexamethasone 6 mg/ Syringe 1.5 mls @ 1 mls/min IV QAM PIERRE Stop: 08/08/20 08:59 Last Admin: 07/11/20 07:43 Dose: 1 mls/min Documented by: [id number] Admin: 07/10/20 07:32 Dose: 1 mls/min Documented by: [id number] Admin: 07/09/20 08:09 Dose: 1 mls/min Documented by: [id number] Discontinued Medications Acetaminophen (Acetaminophen 500 Mg Tab) 1,000 mg PO NOW STA Stop: 07/08/20 18:11 Last Admin: 07/08/20 18:39 Dose: 1,000 mg Documented by: [id number] Albuterol (Albut/Ipratrop 3mg/0.5mg Neb 3 Ml Vial) 12 ml NEB ONE ONE Stop: 07/08/20 19:51 Last Admin: 07/08/20 20:10 Dose: 12 ml Documented by: [id number] Albuterol (Albut/Ipratrop 3mg/0.5mg Neb 3 Ml Vial) 3 ml NEB QIDR [facility] Stop: 08/08/20 06:59 Last Admin: 07/09/20 07:46 Dose: 3 ml Documented by: [id number] Dexamethasone (Dexamethasone Sod Inj 10 Mg/Ml Vial) 6 mg IV NOW ONE Stop: 07/08/20 18:11 Last Admin: 07/08/20 18:39 Dose: 6 mg Documented by: [id number] Furosemide (Furosemide 40 Mg/4 Ml Vial) 20 mg IV NOW ONE Stop: 07/11/20 07:46 Last Admin: 07/11/20 07:49 Dose: 20 mg Documented by: [id number] Guaifenesin (Guaifenesin 600 Mg Tabcr) 600 mg PO Q12 PIERRE Stop: 08/07/20 23:10 Last Admin: 07/11/20 07:45 Dose: 600 mg Documented by: [id number] Admin: 07/10/20 22:36 Dose: 600 mg Documented by: [id number] Admin: 07/10/20 07:27 Dose: 600 mg Documented by: [id number] Admin: 07/09/20 20:39 Dose: 600 mg Documented by: [id number] Admin: 07/09/20 08:08 Dose: 600 mg Documented by: [id number] Admin: 07/09/20 00:22 Dose: 600 mg Documented by: [id number] Sodium Chloride (Nss 1000ml) 1,000 mls @ 150 mls/hr IV .Q6H40M PIERRE Stop: 08/07/20 17:59 Last Infusion: 07/09/20 07:20 Dose: 0 mls/hr Documented by: [id number] Infusion: 07/09/20 05:24 Dose: 0 mls/hr Documented by: [id number] Infusion: 07/09/20 03:11 Dose: 800 mls/hr Documented by: [id number] Infusion: 07/09/20 03:10 Dose: 0 mls/hr Documented by: [id number] Admin: 07/09/20 00:32 Dose: 150 mls/hr Documented by: [id number] Infusion: 07/09/20 00:32 Dose: 150 mls/hr Documented by: [id number] Infusion: 07/09/20 00:28 Dose: 150 mls/hr Documented by: [id number] Admin: 07/08/20 18:40 Dose: 150 mls/hr Documented by: [id number] Sodium Chloride (Nss 1000ml) 1,000 mls @ 100 mls/hr IV .Q10H PIERRE Stop: 08/07/20 23:10 Last Infusion: 07/09/20 12:36 Dose: 0 mls/hr Documented by: [id number] Infusion: 07/09/20 05:26 Dose: 0 mls/hr Documented by: [id number] Infusion: 07/09/20 03:12 Dose: 0 mls/hr Documented by: [id number] Infusion: 07/09/20 03:04 Dose: 0 mls/hr Documented by: [id number] Admin: 07/08/20 23:19 Dose: 100 mls/hr Documented by: [id number] Azithromycin 500 mg/ Dextrose 255 mls @ 125 mls/hr IV QAM PIERRE Stop: 07/16/20 08:59 Last Infusion: 07/11/20 13:45 Dose: 0 mls/hr Documented by: [id number] Admin: 07/11/20 09:16 Dose: 125 mls/hr Documented by: [id number] Infusion: 07/10/20 10:04 Dose: 0 mls/hr Documented by: [id number] Admin: 07/10/20 07:26 Dose: 125 mls/hr Documented by: [id number] Infusion: 07/09/20 10:20 Dose: 0 mls/hr Documented by: [id number] Admin: 07/09/20 08:09 Dose: 125 mls/hr Documented by: [id number] Furosemide 40 mg/ Syringe 4 mls @ 4 mls/min IV ONE ONE Stop: 07/09/20 03:02 Last Admin: 07/09/20 04:01 Dose: 4 mls/min Documented by: [id number] Furosemide 40 mg/ Syringe 4 mls @ 4 mls/min IV ONE ONE Stop: 07/09/20 07:06 Last Admin: 07/09/20 08:08 Dose: 4 mls/min Documented by: [id number] Ceftriaxone Sodium 2,000 mg/ (Dextrose) 70 mls @ 100 mls/hr IV Q24H [facility]; Protocol Stop: 07/15/20 07:59 Last Infusion: 07/11/20 09:15 Dose: 0 mls/hr Documented by: [id number] Admin: 07/11/20 07:49 Dose: 100 mls/hr Documented by: [id number] Infusion: 07/10/20 10:42 Dose: 0 mls/hr Documented by: [id number] Admin: 07/10/20 10:04 Dose: 100 mls/hr Documented by: [id number] Lorazepam (Lorazepam 1 Mg Tab) 1 mg PO TID PRN PRN Reason: Anxiety Stop: 08/07/20 23:15 Last Admin: 07/11/20 07:49 Dose: 1 mg Documented by: [id number] Admin: 07/10/20 22:43 Dose: 1 mg Documented by: [id number] Admin: 07/10/20 07:39 Dose: 1 mg Documented by: [id number] Admin: 07/09/20 23:11 Dose: 1 mg Documented by: [id number] Admin: 07/09/20 16:42 Dose: 1 mg Documented by: [id number] Metoprolol Succinate (Metoprolol Succ 50mg Ext Rel Tab) 50 mg PO QAM [facility] Stop: 08/08/20 08:59 Last Admin: 07/11/20 07:45 Dose: 50 mg Documented by: [id number] Admin: 07/10/20 07:27 Dose: 50 mg Documented by: [id number] Admin: 07/09/20 08:09 Dose: 50 mg Documented by: [id number] Miscellaneous (Rapid Sequence Induction Bag) Confirm Administered Dose 1 ea .ROUTE .STK-MED ONE Stop: 07/09/20 13:12 Last Admin: 07/09/20 17:11 Dose: Not Given Documented by: [id number] Miscellaneous (Rapid Sequence Induction Bag) Confirm Administered Dose 1 ea .ROUTE .STK-MED ONE Stop: 07/11/20 11:47 Last Admin: 07/11/20 13:46 Dose: 1 ea Documented by: [id number] Potassium Chloride (Potassium Chloride Crtab 20 Meq Tabcr) 40 meq PO NOW STA Stop: 07/08/20 23:12 Last Admin: 07/09/20 00:22 Dose: 40 meq Documented by: [id number] Potassium Chloride (Potassium Chloride Crtab 20 Meq Tabcr) 20 meq PO NOW STA Stop: 07/09/20 03:02 Last Admin: 07/09/20 04:01 Dose: 20 meq Documented by: [id number] Potassium Chloride (Potassium Chloride Crtab 20 Meq Tabcr) 40 meq PO NOW STA Stop: 07/11/20 07:28 Last Admin: 07/11/20 07:49 Dose: 40 meq Documented by: [id number] Propofol (Propofol Iv Emulsion 10 Mg/Ml 100 Ml Vial) Confirm Administered Dose 1,000 mg IV .STK-MED ONE Stop: 07/11/20 11:47 Last Admin: 07/11/20 12:47 Dose: 1,000 mg Documented by: [id number] Cosigned by: [id number] Zinc Sulfate (Zinc Sulfate 220 Mg Capsule) 220 mg PO QAM [facility] Stop: 08/08/20 08:59 Last Admin: 07/11/20 07:45 Dose: 220 mg Documented by: [id number] Admin: 07/10/20 07:27 Dose: 220 mg Documented by: [id number] Admin: 07/09/20 08:09 Dose: 220 mg Documented by: [id number] Discharge Plan Visit Data Chief Complaint: Weakness Stated Complaint: WEAKNESS, FATIGUE, COVID + ED Provider: Kerri Soriano Discharge Problem: Pneumonia due to COVID-19 virus, Hypoxia Patient Disposition: Admitted As Inpatient Discharge Instructions Interventions: ED Discharge Assessment Last Done: 07/08/20 23:15
[2020-07-10 06:34] LABS: Albumin Level 3.1 gm/dl (3.4-5.0); BUN Creatinine Ratio 38.4 (10-20); Calcium 7.8 mg/dl (8.5-10.1); Creatinine Clr Calc Pharmacy 63.1 ml/min; Est GFR (African American) 55.5; Est GFR (Non-African American) 47.9; Magnesium 2.5 mg/dl (1.8-2.4); Potassium 3.5 mmol/L (3.5-5.1)
[2020-07-10 06:36] LABS: Albumin Globulin Ratio 0.7 (0.9-2); Bilirubin,Total 0.7 mg/dl (0.2-1); Globulin 4.4 gm/dl (2.5-4.0); Total Protein 7.5 gm/dl (6.4-8.2)
[2020-07-10] MEDS: AZITHROMYCIN 500 MG in DEXTROSE 5% 250 ML IV SCH (07:26)
[2020-07-10] MEDS: ATORVASTATIN 40 MG TAB PO SCH (07:27)
[2020-07-10] MEDS: ZINC SULFATE 220 MG CAPSULE PO SCH (07:27)
[2020-07-10] MEDS: METOPROLOL SUCC 50MG EXT REL TAB PO SCH (07:27)
[2020-07-10] MEDS: ASPIRIN 81 MG ECTAB PO SCH (07:27)
[2020-07-10] MEDS: guaiFENesin 600 MG TABCR PO SCH ×2 (07:27→22:36)
[2020-07-10] MEDS: dexAMETHasone 6 MG in SYRINGE 0 ML IV SCH (07:32)
[2020-07-10] MEDS: LORazepam 1 MG TAB PO PRN ×2 (07:39→22:43)
[2020-07-10] MEDS: cefTRIAXone SODIUM 2,000 MG in DEXTROSE 5% 50 ML IV SCH (10:04)
--- NOTE | 2020-07-10 17:18 | Hospitalist Progress Note ---
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 He is a mouth breather and therefore was unable to tolerate Vapotherm and actually had lower oxygen levels while on it. He reports significant claustrophobia and would not tolerate CPAP or BiPAP unless given anxiolytics Pulse ox is holding steady at 86-88% on 15 L -Continue dexamethasone 6 mg IV once daily x10-day course -Continue Duonebs every 4 hours while awake and every 2 hours when necessary. -He is outside the range for giving remdesivir or convalescent plasma as he is over 1 week out from diagnosis -Continue supplemental O2 with 15 L oxygen mask at this time-can switch to Vapotherm versus BiPAP if respiratory status worsens -Continue guaifenesin extended release 600 mg p.o. twice daily -Continue azithromycin 500 mg IV daily -Continue zinc sulfate 220 mg p.o. 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 to 1.4 today Initially given IV fluids, but later required furosemide 40 mg IV due to worsening hypoxia Continue to hold telmisartan/HCTZ and diclofenac Follow CMP Follow urine output (4) CAD (coronary artery disease), [place] coronary artery: With a history of coronary stent Troponin minimally elevated and stable x2 most likely secondary to myocardial demand ischemia from profound hypoxia -Continue aspirin 81 mg daily, metoprolol succinate 50 mg daily, nitroglycerin sublingual as needed (5) Osteoarthritis: Hold diclofenac due to acute kidney injury (6) Hypertension: Blood pressures are controlled Holding home telmisartan/HCT Continue metoprolol (7) Anxiety: Continue lorazepam as needed (8) Hyperlipidemia: Continue atorvastatin 80 mg every morning (9) Elevated troponin: As above, likely secondary to myocardial demand ischemia Was minimally elevated at 0.1 ECG without ischemic changes (10) UTI (urinary tract infection): Urinalysis abnormal He denies symptoms but has had UTIs in the past -Start ceftriaxone 2 g IV every 24 hours Follow-up urine culture final result (11) DVT prophylaxis: Lovenox 40 mg SQ every 12 will be added today Disposition-continued stay on PCU I discussed his care as per patient's request with his son on the phone Admission and Anticipated Discharge Date Admission Date: July 08, 2020 Subjective Patient reports he feels about the same as yesterday, no better or no worse. He remains on 15 L oxygen mask and reports that he has difficulty tolerating the Vapotherm and definitely would not be able to tolerate a CPAP or BiPAP due to claustrophobia. He denies any chest pain or shortness of breath. His cough is improved. He denies nausea or vomiting but does have a low appetite. He is not having any diarrhea. Telemetry with normal sinus rhythm with rates in the 60s to 80s, PACs and PVCs Review of Systems Review of Systems: All systems reviewed & are unremarkable except as noted in HPI & below He denies any urinary frequency urgency, no dysuria Physical Exam Constitutional: WD/WN, vitals as above + obese Eyes: + anicteric sclerae Neck: trachea midline, no thyromegaly Respiratory: normal respiratory effort, lungs clear to auscultation Cardiovascular: RRR, no murmur, no edema Chest (Breasts): Chest: normal inspection of chest Gastrointestinal (Abdomen): normal bowel sounds, soft, nontender, no hepatosplenomegaly Musculoskeletal: Extremities: extremities normal to inspection; no cyanosis and no clubbing Skin: no rashes, warm and dry Neurologic: moves all extremities and awake; no focal motor deficits Psychiatric: A+Ox3, euthymic affect Lymphatic: no lymphedema Results & Data Results & Data ([facility]) Vital Signs (Past 12 Hours) Vital Signs Temp Pulse Pulse Resp BP BP Pulse Ox 07/10/20 15:31 36.4 C L 76 22 98/59 L 89 L 07/10/20 11:08 36.4 C L 69 22 98/56 L 89 L 07/10/20 09:00 88 07/10/20 07:42 36.5 C 78 22 120/70 91 Laboratory Results 07/10/20 Range/Units 05:40 Sodium 136 (136-145) mmol/L Potassium 3.5 (3.5-5.1) mmol/L Chloride 98 (98-107) mmol/L Carbon Dioxide 30 (21-32) mmol/L Anion Gap 8.0 (3-11) BUN 57 H (7-18) mg/dl Creatinine 1.49 H (0.6-1.4) mg/dl Est Cr Clr Drug Dosing 63.1 ml/min Est GFR ( Amer) 55.5 Est GFR (Non-Af Amer) 47.9 BUN/Creatinine Ratio 38.4 H (10-20) Glucose 122 H (70-99) mg/dl Calcium 7.8 L (8.5-10.1) mg/dl Magnesium 2.5 H (1.8-2.4) mg/dl Total Bilirubin 0.7 (0.2-1) mg/dl AST 76 H (15-37) U/L ALT 55 (12-78) U/L Alkaline Phosphatase 32 L (45-117) U/L Total Protein 7.5 (6.4-8.2) gm/dl Albumin 3.1 L (3.4-5.0) gm/dl Globulin 4.4 H (2.5-4.0) gm/dl Albumin/Globulin Ratio 0.7 L (0.9-2) PG Care Time/CCT Total # of Minutes Spent Total Time Spent with Patient: Total time spent is greater than 50% in coordination of care (as documented) at patient's floor/unit and/or counseling patient: Coding Level of Care Code 56593 Subseq Hosp Care Lvl 3 Diagnoses Pneumonia due to COVID-19 virus U07.1; J12.82 Hypoxia R09.02 Acute kidney injury N17.9 CAD (coronary artery disease), [place] coronary artery I25.10 Osteoarthritis M19.90 Hypertension I10 Anxiety F41.9 Hyperlipidemia E78.5 Elevated troponin R77.8 UTI (urinary tract infection) N39.0 DVT prophylaxis Z29.9
[2020-07-10] MEDS: ENOXAPARIN INJ 40 MG/0.4 ML SYR SQ SCH (22:33)
[2020-07-11 06:15] LABS: Basophils # (auto) 0.01 K/uL (0-0.2); Basophils % (auto) 0.1 %; Hematocrit (blood only) 46.3 % (42-52); Hemoglobin 15.9 g/dL (14.0-18.0); Immature Granulocytes # (auto) 0.02 K/uL (0.00-0.02); Immature Granulocytes % (auto) 0.2 %; Lymphocytes # (auto) 0.56 K/uL (1.2-3.4); Mean Corpuscular Hemoglobin 31.4 pg (25-34); Mean Corpuscular Hgb Conc 34.3 g/dL (32-36); Mean Corpuscular Volume 91.5 fL (80-100); Mean Platelet Volume 10.4 fL (7.4-10.4); Monocytes # (auto) 0.83 K/uL (0.11-0.59); Monocytes % (auto) 8.8 %; Neutrophils # (auto) 7.99 K/uL (1.4-6.5); Neutrophils % (auto) 84.9 %; Platelet Count 175 K/uL (130-400); RDW Coefficient of Variation 14.1 % (11.5-14.5); RDW Standard Deviation 47.5 fL (36.4-46.3); Red Blood Count 5.06 M/uL (4.7-6.1); White Blood Count 9.41 K/uL (4.8-10.8)
[2020-07-11 06:56] LABS: Albumin Globulin Ratio 0.7 (0.9-2); Albumin Level 3.2 gm/dl (3.4-5.0); BUN Creatinine Ratio 36.7 (10-20); Bilirubin,Total 0.7 mg/dl (0.2-1); Calcium 8.4 mg/dl (8.5-10.1); Creatinine Clr Calc Pharmacy 76.7 ml/min; Est GFR (Non-African American) 60.4; Globulin 4.7 gm/dl (2.5-4.0); Magnesium 2.6 mg/dl (1.8-2.4); Potassium 3.3 mmol/L (3.5-5.1); Total Protein 7.9 gm/dl (6.4-8.2)
[2020-07-11] MEDS ORDERED: POTASSIUM CHLORIDE CRTAB 20 MEQ TABCR PO STA (07:27)
[2020-07-11] MEDS ORDERED: FUROSEMIDE 20 MG in SYRINGE 0 ML IV ONE (07:32)
[2020-07-11] MEDS: dexAMETHasone 6 MG in SYRINGE 0 ML IV SCH (07:43)
[2020-07-11] MEDS: ENOXAPARIN INJ 40 MG/0.4 ML SYR SQ SCH ×2 (07:43→23:01)
[2020-07-11] MEDS: METOPROLOL SUCC 50MG EXT REL TAB PO SCH (07:45)
[2020-07-11] MEDS ORDERED: FUROSEMIDE 40 MG/4 ML VIAL IV ONE (07:45)
[2020-07-11] MEDS: ZINC SULFATE 220 MG CAPSULE PO SCH (07:45)
[2020-07-11] MEDS: guaiFENesin 600 MG TABCR PO SCH (07:45)
[2020-07-11] MEDS: ASPIRIN 81 MG ECTAB PO SCH (07:46)
[2020-07-11] MEDS: ATORVASTATIN 40 MG TAB PO SCH (07:46)
[2020-07-11] MEDS: cefTRIAXone SODIUM 2,000 MG in DEXTROSE 5% 50 ML IV SCH (07:49)
[2020-07-11] MEDS: LORazepam 1 MG TAB PO PRN (07:49)
[2020-07-11] MEDS: AZITHROMYCIN 500 MG in DEXTROSE 5% 250 ML IV SCH (09:16)
--- NOTE | 2020-07-11 09:54 | XRay Report ---
XR chest 1V portable CLINICAL HISTORY: worsening hypoxia, COVID COMPARISON STUDY: Chest radiograph July 08, 2020. FINDINGS: Lung volumes are mildly diminished. There is no pneumothorax or pleural effusion. Interstit ial thickening and bilateral opacities have progressed. Cardiomegaly is unchanged. IMPRESSION: Progression of interstitial thickening and bilateral airspace opacities consistent with an infectious process. ACT 112: Negative or not required by law. Electronically signed by: Leoncio Bernardo M.D. 07/11/2020 9:53 AM
--- NOTE | 2020-07-11 10:13 | Hospitalist Progress Note ---
Date of Service July 11, 2020 Assessment & Plan (1) Pneumonia due to COVID-19 virus: Pneumonia due to COVID-19 He had a positive test 7 days [employer]NA[facility] at [employer] with no previous treatment. Had difficulty with tolerating Vapotherm high flow nasal cannula and was not able to maintain pulse ox greater than 88% on max settings of high flow along with 15 L nonrebreather mask over his mouth Mentation began to worsen and he became hypercapnic as well on the morning of 07/11, also tachypneic Placed on trial of BiPAP and failed Chest x-ray and overall picture consistent with ARDS Transferred to ICU and was intubated and is mechanically ventilated as of the a.m. of 07/11 -Appreciate lcsw management -Prone positioning, paralytics while on ventilator along with sedation -Considering epoprostenol as an inhaled vasodilator as inhaled nitric oxide is not available here -Continue dexamethasone 6 mg IV once daily x10-day course -Continue albuterol -He is outside the range for giving remdesivir or convalescent plasma as he is over 1 week out from diagnosis -Initially was given IV azithromycin but procalcitonin negative and no leukocytosis-this was discontinued (2) Acute hypoxemic respiratory failure: As noted above ABG after placed on ventilator able to be obtained through arterial line-had difficulty with drawing ABG prior to intubation ABG showed 7.33/57/70 on 100% FiO2 consistent with hypoxemia as well as hypercapnia Mechanical ventilation as above (3) Sepsis: Sepsis in setting of COVID19 pneumonia Treatment as above (4) Acute kidney injury: Creatinine 2.38 upon admission, 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 coli resistant to ampicillin, Unasyn, and Bactrim, but sensitive to ceftriaxone -Continue ceftriaxone 2 g IV every 24 hours x7 to 10-day course (7) Elevated transaminase level: AST and ALT are up to 99 and 74, respectively This is secondary to Covid-19 pneumonia Follow CMP (8) Anxiety: On lorazepam 1 mg 3 times daily at home Now receiving Versed as needed while ventilated (9) Hypokalemia: Potassium mildly low today at 3.3 Replaced with potassium chloride Follow BMP (10) Hypertension: Blood pressures are controlled Holding home telmisartan/HCT for acute kidney injury Metoprolol on hold while intubated Norepinephrine as needed (11) Osteoarthritis: Hold diclofenac due to acute kidney injury (12) CAD (coronary artery disease), [place] coronary artery: With a history of coronary stent Troponin minimally elevated and stable x2 most likely secondary to myocardial de sanna ischemia from profound hypoxia We will now hold aspirin 81 mg daily, metoprolol succinate 50 mg daily as per lcsw (13) Hyperlipidemia: Continue atorvastatin 80 mg every morning (14) DVT prophylaxis: Lovenox 40 mg SQ every 12 FEN-no IV fluids other than medications, considering starting tube feeds tomorrow [id number], central venous catheter, Alicia catheter, peripheral IV Disposition-transferred to ICU I discussed his care with his son on the phone Admission and Anticipated Discharge Date Admission Date: July 08, 2020 Subjective Patient was on the Vapotherm all night and did not tolerate it well. He was attempted to be placed back on oxygen mask this morning and respiratory therapy could not get his sats above 85%. He was transitioned back to the Vapotherm as well as an oxygen mask/nonrebreather at 15 L and oxygen saturations were maintaining 86-88%. The patient was quite anxious and had not received his usual Ativan he takes 3 times a day. He was given 1 dose of p.o. Ativan. I saw the patient and he was becoming more lethargic. He told me he felt "not good" and was willing to try BiPAP and was considering intubation. Chest x-ray was repeated which looked much worse I ordered IV Lasix as his urine output was low and oxygen demands were increased in case of some aspect of pulmonary edema Because of his high oxygen requirement, I contacted the pulmonary/lcsw who agreed to accept him for transfer to the ICU where he was then intubated for hypoxemic and hypercapnic respiratory failure. A Alicia catheter was placed, an arterial line, central line, and OG tube were also all placed. I did update his son by phone as his was not available at the time of transfer down to the ICU. I communicated with the lcsw throughout the day on his condition. Telemetry with normal sinus rhythm and some short runs of PAT and PACs. Review of Systems Review of Systems: All systems reviewed & are unremarkable except as noted in HPI & below Physical Exam Constitutional: WD/WN, vitals as above + obese and + lethargic; no acute distress Eyes: + anicteric sclerae ENMT: Nose: no external nose abnormality Neck: trachea midline, no thyromegaly Respiratory: + labored breathing Auscultation: + crackles (In lower and middle lung muñoz bilaterally); no wheezes Cardiovascular: RRR, no murmur, no edema Chest (Breasts): Chest: normal inspection of chest Gastrointestinal (Abdomen): normal bowel sounds, soft, nontender, no hepatosplenomegaly Musculoskeletal: Extremities: extremities normal to inspection; no cyanosis and no clubbing Skin: no rashes, warm and dry Neurologic: moves all extremities; no focal motor deficits Psychiatric: Orientation: oriented to person, oriented to place and cooperative Eye Contact: + poor eye contact Speech: normal rate/rhythm/volume of speech Lymphatic: no lymphedema Results & Data Results & Data ([facility]) Vital Signs (Past 12 Hours) Vital Signs Temp Pulse Pulse Pulse Resp BP Pulse Ox 07/11/20 07:28 87 19 94 07/11/20 07:20 78 07/11/20 07:14 37.5 C 83 24 139/69 90 07/11/20 03:00 36.7 C 90 20 154/98 H 91 07/11/20 02:06 83 20 88 L 07/10/20 23:59 81 07/10/20 23:38 36.9 C 92 H 22 140/74 92 07/10/20 23:00 Pulse Ox 07/11/20 07:28 07/11/20 07:20 07/11/20 07:14 07/11/20 03:00 07/11/20 02:06 07/10/20 23:59 07/10/20 23:38 07/10/20 23:00 89 L Laboratory Results 07/11/20 07/11/20 07/11/20 Range/Units 13:50 05:31 05:31 WBC 9.41 (4.8-10.8) K/uL RBC 5.06 (4.7-6.1) M/uL Hgb 15.9 (14.0-18.0) g/dL POC Hgb 16.0 (14.0-18.0) g/dl Hct 46.3 (42-52) % POC Hct 47 (42-52) % MCV 91.5 (80-100) fL MCH 31.4 (25-34) pg MCHC 34.3 (32-36) g/dL RDW Std Deviation 47.5 H (36.4-46.3) fL RDW Coeff of Fernanda 14.1 (11.5-14.5) % Plt Count 175 (130-400) K/uL MPV 10.4 (7.4-10.4) fL Immature Gran % (Auto) 0.2 % Neut % (Auto) 84.9 % Lymph % (Auto) 6.0 % [place] % (Auto) 8.8 % Eos % (Auto) 0.0 % Baso % (Auto) 0.1 % Neut # (Auto) 7.99 H (1.4-6.5) K/uL Lymph # (Auto) 0.56 L (1.2-3.4) K/uL [place] # (Auto) 0.83 H (0.11-0.59) K/uL Eos # (Auto) 0.00 (0-0.5) K/uL Baso # (Auto) 0.01 (0-0.2) K/uL Immature Gran # (Auto) 0.02 (0.00-0.02) K/uL Sample Site Art Line POC pH 7.33 L (7.35-7.45) POC pCO2 57 H (35-46) mmHg POC pO2 70 L (80-95) mmHg POC HCO3 30 H (19-24) nakul/L POC Total CO2 32 H (24-31) mmol/L POC Base Excess 4.0 H (-9-1.8) nakul/L ABG pH (Temp Correct) 7.315 L (7.35-7.45) ABG pCO2 (Temp Corrct 59 H (35-46) mmHg POC ABG pO2 at Pt Temp 73 POC ABG O2 Sat 92.0 (90-95) % Tavo Test NA O2 Delivery Device Ventilator POC O2 Rate 32 Minute Ventilation 12.3 POC FiO2 100 % Tidal Volume 350 PEEP 16 POC Sodium 135 (135-144) mmol/L Sodium 135 L (136-145) mmol/L POC Potassium 3.5 (3.3-5.0) mmol/L Potassium 3.3 L (3.5-5.1) mmol/L Chloride 99 (98-107) mmol/L Carbon Dioxide 28 (21-32) mmol/L Anion Gap 8.0 (3-11) BUN 45 H (7-18) mg/dl Creatinine 1.23 (0.6-1.4) mg/dl Est Cr Clr Drug Dosing 76.7 ml/min Est GFR ( Amer) 70.0 Est GFR (Non-Af Amer) 60.4 BUN/Creatinine Ratio 36.7 H (10-20) Glucose 97 (70-99) mg/dl Calcium 8.4 L (8.5-10.1) mg/dl Magnesium 2.6 H (1.8-2.4) mg/dl Total Bilirubin 0.7 (0.2-1) mg/dl AST 99 H (15-37) U/L ALT 74 (12-78) U/L Alkaline Phosphatase 37 L (45-117) U/L Total Protein 7.9 (6.4-8.2) gm/dl Albumin 3.2 L (3.4-5.0) gm/dl Globulin 4.7 H (2.5-4.0) gm/dl Albumin/Globulin Ratio 0.7 L (0.9-2) Diagnostic Findings Chest x-ray image personally reviewed by me and agree with the following report: XR chest 1V portable CLINICAL HISTORY: worsening hypoxia, COVID COMPARISON STUDY: Chest radiograph July 08, 2020. FINDINGS: Lung volumes are mildly diminished. There is no pneumothorax or pleural effusion. Interstitial thickening and bilateral opacities have progressed. Cardiomegaly is unchanged. IMPRESSION: Progression of interstitial thickening and bilateral airspace opacities consistent with an infectious process. PG Care Time/CCT Total # of Minutes Spent Total Time Spent with Patient: Total time spent is greater than 50% in coordination of care (as documented) at patient's floor/unit and/or counseling patient: Prolonged Care Time Total Prolonged Care Time: 120 I spent 120 minutes of prolonged service care time for this critically ill patient with direct and indirect care to include physical examination, interpretation of labs and ordering of labs and studies, interpretation of imaging, discussion with lcsw, and transfer down to the ICU along with ordering of medications Coding Level of Care Code 69016 Subseq Hosp Care Lvl 3 (25 - SIGNIFICANT, SEPARATELY IDENTIFIABLE ) Diagnoses Pneumonia due to COVID-19 virus U07.1; J12.82 Acute hypoxemic respiratory failure J96.01 Sepsis A41.9 Acute kidney injury N17.9 Elevated troponin R77.8 UTI (urinary tract infection) N39.0 Elevated transaminase level R74.01 Anxiety F41.9 Hypokalemia E87.6 Hypertension I10 Osteoarthritis M19.90 CAD (coronary artery disease), [place] coronary artery I25.10 Hyperlipidemia E78.5 DVT prophylaxis Z29.9
[2020-07-11] MEDS ORDERED: RAPID SEQUENCE INDUCTION BAG ONE (11:46)
[2020-07-11] MEDS ORDERED: PROPOFOL IV EMULSION 10 MG/ML 100 ML VIAL IV ONE (11:46)
[2020-07-11] MEDS ORDERED: MIDAZOLAM HCL 125MG/250ML D5W ONE (13:03)
--- NOTE | 2020-07-11 13:37 | XRay Report ---
KUB HISTORY: Placement of OG tube. COMPARISON: None. FINDINGS: The bowel gas pattern is unremarkable. There are no dilated loops of small bowel to suggest an obstruction. No renal calculi. No ureteral calculi. No pneumoperitoneum or pneumatosis. Nasogast ankit tube terminates in the distal stomach/pylorus. Please refer to same day chest history for further evaluation of the lungs. IMPRESSION: Nasogastric tube terminates at the distal stomach/pylorus. ACT 112: Negative or not required by law. Electronically signed by: Gwyn Shaw M.D. 07/11/2020 1:35 PM
--- NOTE | 2020-07-11 13:37 | XRay Report ---
XR chest 1V portable CLINICAL HISTORY: Intubation, central line placement COMPARISON STUDY: Chest radiograph July 11, 2020 at 9:30 AM. FINDINGS: Tip of the endotracheal tube is 3.1 cm above the laverne. Tip of nasogastric tube is depicte d on the KUB which will be reported separately. Tip of left subclavian central line projects over the proximal SVC. There is no pneumothorax. Extensive bilateral airspace opacities have progressed. Card iomediastinal silhouette is stable. IMPRESSION: 1. Tip of endotracheal tube 3.1 cm above the laverne. 2. No pneumothorax following placement of a left subclavian central line. 3. Progression of extensive bilateral airspace opacities consistent with an infectious process. ACT 112: Negative or not required by law. Electronically signed by: Leoncio Bernardo M.D. 07/11/2020 1:35 PM
--- NOTE | 2020-07-11 13:38 | Procedure Note ---
Procedure Note Date of Service July 11, 2020 INTUBATION PROCEDURE NOTE: Provider: Mayur Roth MD A time-out was completed verifying correct patient, procedure, site, positioning. Patient was evaluated and required intubation for hypoxemic respiratory failure secondary to Covid pneumonia. Sedative agent used: 2 mg Versed, 50 mcg fentanyl, 40 mg etomidate Paralysis agent used: 100 mg succinylcholine Discussed with patient at bedside. He agreed to intubation mechanical ventilation given progressive hypoxemic respiratory failure increased work of breathing and respiratory muscle fatigue The patient was prepared in the appropriate fashion. Sedation was achieved as noted above. Due to Covid, the patient was not ventilated with bag valve mask but was preoxygenated using the inline BiPAP system. Once paralysis was achieved, the BiPAP was removed and video laryngoscopy was performed using a glide scope.. A 7.5 Tamazight endotracheal tube was placed under direct visualization to 24 cm at the lip. The stylette was removed and balloon was inflated with 10mL of air. Appropriate Colorimetric change was appreciated. Bi lateral breath sounds were heard without air sounds in the abdomen. Post procedure chest x-ray is pending Patient tolerated the procedure well and there were no immediate complications. Coding CPT Codes Resuscitation - Resuscitation: 56438 Endotracheal Intubation, emergency ([id number]) [facility] Procedure Codes (Charges) Resuscitation Resuscitation: 13775 Endotracheal Intubation, emergency
--- NOTE | 2020-07-11 13:40 | Procedure Note ---
Procedure Note Date of Service July 11, 2020 CENTRAL LINE PROCEDURE NOTE: Procedure: Central Line Placement Provider: Mayur Roth MD Indication: Central Drug Administration, Poor Venous Access, Multiple Lab Draws Necessary, etc. Anesthesia: 5 mL 1% lidocaine locally. Patient was maintained on a propofol infusion Site: Left subclavian Risks and benefits were explained to the patient prior to the procedure. Verbal consent was obtained. Due to the gravity of the situation and the patient's current illness, written consent was not available A time-out was completed verifying correct patient, procedure, site, positioning, and implants(s) or special equipment if applicable. Patients left infra clavicular fossa was cleansed and draped in the typical sterile fashion using Chloraprep. Landmarks were easily identified. The superficial tissue was anesthetized using [] mL of 1% lidocaine without epinephrine. After adequate anesthetization was achieved, the SC vein was cannulated under direct ultrasound guidance using an introducer needle on a syringe. Good venous blood return was maintained prior to removal of syringe from introducer needle. Using Seldinger Technique, a guide wire was advanced through the introducer needle without resistance. The introducer needle was removed and the wire left in place. A small incision was made in penetrating fashion at the guide wire insertion site utilizing an 11 blade scalpel. The dilator was advanced to the vessel without resistance. The dilator was exchanged for the triple lumen catheter which was advanced into the vessel without resistance. The guide wire was removed intact from the catheter without issue. Claves were placed on each catheter tip with confirmation of good blood flow from each lumen. Each port was easily flushed with sterile saline. The catheter was placed at the hub and sutured in place. BioPatch was applied to the catheter and a sterile Tegaderm dressing was applied over the catheter with careful attention to sterility. Patient tolerated procedure well. No immediate complications were met. Post procedure x-ray was pending. Coding CPT Codes Tubes, Drains, and Vasc Access - Tubes, Drains, and Vasc Access: [id number] Place catheter in vein superior or inferior vena cava ([id number]) Tubes, Drains, and Vasc Access - Tubes, Drains, and Vasc Access: [id number] Ultrasound Guidance For Vascular ([id number]) [facility] Procedure Codes (Charges) Tubes, Drains, and Vasc Access Procedure 1: Tubes, Drains, and Vasc Access: [id number] Place catheter in vein superior or inferior vena cava Procedure 2: Tubes, Drains, and Vasc Access: [id number] Ultrasound Guidance For Vascular
--- NOTE | 2020-07-11 13:42 | Procedure Note ---
Procedure Note Date of Service July 11, 2020 ARTERIAL LINE PROCEDURE NOTE: Procedure: Arterial Line Placement Provider: Mayur Roth MD Indication: Monitoring on Pressors Anesthesia: none. pt sedated on vent Risks benefits and verbal consent had been reviewed and discussed with the patient prior to intubation. Due to severity of illness and patient's clinical state, written consent was not available A time-out was completed verifying correct patient, procedure, site, positioning, and implant(s) or special equipment if applicable. Allens test was performed to ensure adequate perfusion. Patients left wrist was prepped and draped in the usual sterile fashion. Ultrasound guidance was used to aid needle placement. A 20g Arrow arterial line was introduced into the left radial artery. Catheter was threaded, and the needle was removed with appropriate blood return. Good waveform was observed. The patient tolerated the procedure well. Blood Loss: Minimal Complications: None Coding CPT Codes Tubes, Drains, and Vasc Access - Tubes, Drains, and Vasc Access: [id number] Place Catheter In Artery ([id number]) [facility] [place] Procedure Codes (Charges) Tubes, Drains, and Vasc Access Procedure 1: Tubes, Drains, and Vasc Access: [id number] Place Catheter In Artery
[2020-07-11 14:08] LABS: iSTAT Art Bld Gas pCO2 Correct 59 mmHg (35-46); iSTAT Art Bld Gas pH Corrected 7.315 (7.35-7.45); iSTAT Arterial Blood Gas HCO3 30 meg/L (19-24); iSTAT Arterial Blood Gas pCO2 57 mmHg (35-46); iSTAT Arterial Blood Gas pH 7.33 (7.35-7.45); iSTAT Arterial Blood Gas pO2 70 mmHg (80-95); iSTAT Arterial Blood Gas pO2 C 73; iSTAT Carbon Dioxide 32 mmol/L (24-31); iSTAT FiO2 100 %; iSTAT Hematocrit 47 % (42-52); iSTAT Potassium 3.5 mmol/L (3.3-5.0); iSTAT Site Art Line; iSTAT Sodium 135 mmol/L (135-144)
[2020-07-11] MEDS ORDERED: STAT IV Infusion **Titration per Protocol STA (14:08)
[2020-07-11] MEDS ORDERED: PROPOFOL BOLUS FROM BAG IV PRN (14:08)
[2020-07-11] MEDS ORDERED: MIDAZOLAM BOLUS FROM BAG IV PRN (14:08)
--- NOTE | 2020-07-11 14:46 | Critical Care Consultation ---
Date of Consultation July 11, 2020 Assessment & Plan (1) Acute hypoxemic respiratory failure: (2) Pneumonia due to COVID-19 virus: Impression: 65-year-old male with morbid obesity and ARDS secondary to COVID-19 pneumonia. He is failed conservative measures with oxygen and BiPAP and intubation mechanical ventilation are recommended. Recommendations: 1. Neurologic: We will continue aggressive sedation at this point time. Given his severe ARDS will place him on neuromuscular blockade for 48 to 72 hours to facilitate compliance with ventilator. He uses Ativan in the outpatient setting so we will add fentanyl and Versed to his propofol. Will check triglycerides in 3 days. 2. Pulmonary: Severe ARDS secondary to COVID-19 pneumonia. Continue arginate ventilatory strategy and trying keep plateau pressures below 35. Post intubation I did invert his CECILIA ratio which seemed to improve his gas exchange. We will allow for permissive hypercapnia. We will pursue prone positioning to see if this improves VQ mismatching. I did reach out to [facility] to see whether or not the patient would be a candidate for ECMO. There limit currently is age less than 60 so the patient is not a candidate for any additional advanced therapies. We may consider inhaled epoprostenol as inhaled nitric oxide is not available. Continue dexamethasone per protocol. Patient is too far out to consider convalescent plasma or remdesivir. 3. Cardiovascular: History of coronary disease. He hemodynamically stable currently. Will use norepinephrine to maintain mean arterial pressure if needed . History of stents on antiplatelet therapy which is being held currently. 4. Renal: No current issues. Electrolyte replacement will be initiated. Follow acid-base status. Trend urine output. 5. GI: No current issues. PPI will be initiated. Depending on how the patient does over the next 12 to 24 hours may consider initiation of enteric tube feeding. 6. ID: The patient has been on broad-spectrum antibiotics since presentation. These will be discontinued as his procalcitonin was negative and his white count is normal. Additional antibiotics will be guided by microbiologic data. 7. Endocrine: Glycemic control per protocol. 8. Heme-onc: No current issues. DVT prophylaxis with Lovenox. Patient's overall prognosis is guarded at this point time. We will see if he improves with prone positioning. If not, his overall prognosis is quite guarded. Should he develop progressive multiorgan system failure, would not recommend aggressive interventions such as CPR or other ACLS interventions. Family will be updated as time permits if they have not already been updated by the primary admitting service The patient is critically ill with significant possibility of clinical de terioration and . A total of 94 minutes critical care time was spent in evaluation management stabilization of this patient including discussion with outside consultants exclusive of procedures. History of Present Illness Attending Physician: Louann Maloney MD History of Present Illness Asked by hospitalist to evaluate this patient with hypoxemic respiratory failure due to COVID-19 pneumonia. History is obtained from discussion with the hospitalist as well as review the electronic medical record and interview the patient although he was in no acute distress at the time of arrival to the ICU. The patient is a 65-year-old male with morbid obesity, coronary disease, and prior stent placement who was admitted to the facility 07/08/2020. He was initially diagnosed with Covid approximately 1 week prior to that at an urgent care center. He presented to the ER with progressive shortness of breath was found to be hypoxemic. He was admitted to the hospitalist service and placed on dexamethasone as well as broad-spectrum antibiotics. His white count was normal as was her procalcitonin. Unfortunately the patient had progressive hypoxemic respiratory failure with diffuse pulmonary infiltrates. He was transitioned to high flow oxygen. He was having difficulty tolerating it and initially said that he would not tolerate BiPAP. I was contacted this morning and we made arrangements to transfer him to the intensive care unit. He was agreeable to BiPAP for the transport. I assessed him immediately upon arrival to the ICU. He was hypoxemic with oxygen saturations in the high 80% range on 100% FiO2 on BiPAP. His work of breathing remained high with a respiratory rate in the 30s. I discussed with the patient options and recommended intubation mechanical ventilation at this point time. The patient expressed understanding and is in agreement to the plan. We also verbally consented him to central line placement as well as arterial line placement. Allergies Allergy/AdvReac Type Severity Reaction Status Date / Time ciprofloxacin Allergy Intermediate RASH, Verified 07/08/20 19:40 VISION TUNNLED, VERTIGO, NO TASTE cimetidine Allergy Mild DIAPHORESIS Verified 07/08/20 19:40 melon Allergy Mild Cantaloupe Verified 07/08/20 19:40 - Rash Home Medications Medication Instructions Recorded Confirmed Type aspirin 81 mg tablet,delayed 81 mg PO QAM 01/21/19 07/08/20 History release acetaminophen 500 mg tablet 500 mg PO UD PRN 03/22/20 07/08/20 History atorvastatin 80 mg tablet 80 mg PO QAM #90 tab 03/22/20 07/08/20 Rx lorazepam 1 mg tablet 1 mg PO TID PRN tab 03/22/20 07/08/20 History metoprolol succinate 50 mg 50 mg PO QAM #90 tab 03/22/20 07/08/20 Rx tablet,extended release 24 hr nitroglycerin 0.4 mg sublingual 0.4 mg SL Q5M PRN #25 tab 03/22/20 07/08/20 Rx tablet sildenafil (pulm.hypertension) 20 20 mg PO DAILY PRN tab 03/22/20 07/08/20 His tory mg tablet telmisartan 80 1 tab PO QAM #90 tab 03/22/20 07/08/20 Rx mg-hydrochlorothiazide 25 mg tablet diclofenac sodium 75 mg PO BID 07/08/20 07/08/20 History Patient History Medical History (Updated 07/11/20 @ 14:28 by Mayur Roth MD) Anxiety CAD (coronary artery disease), [place] coronary artery Hiatal hernia History of heart attack 2006/STENT X1 ([facility] 2 ATTEMPTS THEN [place] TO [place] History of skin cancer Hyperlipidemia Hypertension Osteoarthritis Surgical History History of arthroscopy of left knee History of arthroscopy of right knee History of cardiac cath 2006, STENT X1 ([facility] 2 ATTEMPTS...[place] FOR PLACEMENT OF STENT) History of colonoscopy History of skin cancer RESECTED History of tonsillectomy History of tooth extraction Family History Sister Family history of breast cancer Father Family history of leukemia Other Family history of skin cancer Social History Smoking Status: Former smoker Cigarettes Per Day: ~1/2 PPD x 25 YEARS; Second Hand Exposure: No; Do You Dip or Chew Tobacco: No; Tobacco Cessation Education Requested by Patient: No Hx Alcohol Use: Yes Alcohol type: beer Hx Substance Use: No Preferred Language: Egyptian Communication Ability: Effective Cut Off Worker Required: No Beliefs That Will Affect Care: None marital status: Current Living Situation: Spouse Other Information That Helps Us Care for You: No Feels Safe at Home: Yes Safety Concerns: Feels Safe At This Time Assistive Devices: Oxygen - Continuous Review of Systems Review of Systems: Please refer to admission H&P and progress notes Physical Exam Constitutional: WD/WN, vitals as above + obese Eyes: + anicteric sclerae Neck: trachea midline, no thyromegaly Respiratory: normal respiratory effort, lungs clear to auscultation Cardiovascular: RRR, no murmur, no edema Chest (Breasts): Chest: normal inspection of chest Gastrointestinal (Abdomen): normal bowel sounds, soft, nontender, no hepatosplenomegaly Musculoskeletal: Extremities: extremities normal to inspection; no cyanosis and no clubbing Skin: no rashes, warm and dry Neurologic: moves all extremities and awake; no focal motor deficits Psychiatric: A+Ox3, euthymic affect Lymphatic: no lymphedema Results & Data Results & Data ([facility]) Vital Signs (Past 12 Hours) Vital Signs Temp Pulse Pulse Pulse Resp BP Pulse Ox 07/11/20 13:00 68 32 H 96 07/11/20 11:18 37.7 C H 88 26 H 107/55 L 83 L 07/11/20 11:05 81 34 H 90 07/11/20 10:45 23 88 L 07/11/20 07:28 87 19 94 07/11/20 07:20 78 07/11/20 07:14 37.5 C 83 24 139/69 90 07/11/20 03:00 36.7 C 90 20 154/98 H 91 Laboratory Results 07/11/20 05:31 07/11/20 05:31 Diagnostic Findings Chest x-ray and KUB were independently reviewed. Diffuse parenchymal infilt rates are noted. Central line endotracheal tube and orogastric tube are in good position. Coding Level of Care Code Critical Care ea addt'l 30 min Diagnoses Acute hypoxemic respiratory failure J96.01 Pneumonia due to COVID-19 virus U07.1; J12.82 Time Spent (min) 94 Comment 85498 and [id number]
[2020-07-11] MEDS: CISATRACURIUM BESYLATE 40 MG in 0.9 % SODIUM CHLORIDE 80 ML IV SCH ×2 (15:07→21:06)
[2020-07-11] MEDS: MIDAZOLAM HCL 125 MG/250 ML BAG IV SCH (15:07)
[2020-07-11] MEDS: fentaNYL DRIP 1,250 MCG/250 ML BAG IV SCH (15:12)
[2020-07-11] MEDS: propofoL 1,000 MG/100 ML VIAL IV SCH ×2 (15:12→20:04)
[2020-07-11] MEDS ORDERED: SODIUM CHLORIDE 0.9% INJ 10 ML VIAL IV ONE (16:06)
[2020-07-11] MEDS ORDERED: SUCCINYLCHOLINE CHLORIDE 20 MG/ML 10 ML VIAL IV ONE (16:06)
[2020-07-11] MEDS ORDERED: ETOMIDATE 2 MG/ML 20 ML VIAL IV ONE (16:06)
[2020-07-11] MEDS ORDERED: MIDAZOLAM HCL 5 MG/ML VIAL IV ONE (16:06)
[2020-07-11] MEDS ORDERED: fentaNYL citrate 100 MCG/2 ML VIAL IV ONE (16:06)
[2020-07-11] MEDS ORDERED: VECURONIUM BROMIDE 10 MG VIAL IV ONE (16:06)
[2020-07-11] MEDS: ICU ELECTROLYTE REPLACEMENT PROTOCOL SCH (18:31)
[2020-07-12] MEDS: NOREPINEPHRINE/D5W 8 MG/508 ML BAG IV SCH ×2 (00:16→19:47)
[2020-07-12] MEDS: propofoL 1,000 MG/100 ML VIAL IV SCH ×7 (02:56→23:35)
[2020-07-12 04:18] LABS: iSTAT Art Bld Gas pCO2 Correct 64 mmHg (35-46); iSTAT Arterial Blood Gas HCO3 34 meg/L (19-24); iSTAT Arterial Blood Gas pCO2 61 mmHg (35-46); iSTAT Arterial Blood Gas pH 7.35 (7.35-7.45); iSTAT Arterial Blood Gas pO2 132 mmHg (80-95); iSTAT Arterial Blood Gas pO2 C 138; iSTAT Carbon Dioxide 36 mmol/L (24-31); iSTAT FiO2 85 %; iSTAT Hematocrit 45 % (42-52); iSTAT Hemoglobin 15.3 g/dl (14.0-18.0); iSTAT Potassium 3.8 mmol/L (3.3-5.0); iSTAT Site Art Line; iSTAT Sodium 135 mmol/L (135-144)
[2020-07-12 05:07] LABS: Basophils # (auto) 0.01 K/uL (0-0.2); Basophils % (auto) 0.1 %; Hematocrit (blood only) 44.3 % (42-52); Hemoglobin 14.9 g/dL (14.0-18.0); Immature Granulocytes # (auto) 0.06 K/uL (0.00-0.02); Immature Granulocytes % (auto) 0.5 %; Lymphocytes # (auto) 0.57 K/uL (1.2-3.4); Lymphocytes % (auto) 4.9 %; Mean Corpuscular Hemoglobin 31.4 pg (25-34); Mean Corpuscular Hgb Conc 33.6 g/dL (32-36); Mean Corpuscular Volume 93.3 fL (80-100); Mean Platelet Volume 10.1 fL (7.4-10.4); Monocytes # (auto) 0.45 K/uL (0.11-0.59); Monocytes % (auto) 3.8 %; Neutrophils # (auto) 10.64 K/uL (1.4-6.5); Neutrophils % (auto) 90.7 %; Platelet Count 172 K/uL (130-400); RDW Coefficient of Variation 14.4 % (11.5-14.5); RDW Standard Deviation 48.8 fL (36.4-46.3); Red Blood Count 4.75 M/uL (4.7-6.1); White Blood Count 11.73 K/uL (4.8-10.8)
[2020-07-12 05:26] LABS: BUN Creatinine Ratio 33.2 (10-20); Calcium 7.8 mg/dl (8.5-10.1); Creatinine Clr Calc Pharmacy 78.6 ml/min; Est GFR (African American) 72.1; Est GFR (Non-African American) 62.2; Magnesium 2.8 mg/dl (1.8-2.4); Potassium 3.6 mmol/L (3.5-5.1)
[2020-07-12 05:27] LABS: Phosphorus 3.2 mg/dl (2.5-4.9)
[2020-07-12] MEDS: ICU ELECTROLYTE REPLACEMENT PROTOCOL SCH ×2 (05:49→21:20)
[2020-07-12] MEDS: POTASSIUM CHLORIDE / WTR 20 MEQ/100 ML PLCT IV SCH ×3 (06:11→08:11)
[2020-07-12] MEDS: CISATRACURIUM BESYLATE 40 MG in 0.9 % SODIUM CHLORIDE 80 ML IV SCH ×6 (06:15→23:35)
[2020-07-12] MEDS: cefTRIAXone SODIUM 2,000 MG in DEXTROSE 5% 50 ML IV SCH (08:30)
[2020-07-12] MEDS: dexAMETHasone 6 MG in SYRINGE 0 ML IV SCH (08:30)
[2020-07-12] MEDS: ENOXAPARIN INJ 40 MG/0.4 ML SYR SQ SCH ×2 (08:30→21:31)
[2020-07-12] MEDS: fentaNYL DRIP 1,250 MCG/250 ML BAG IV SCH ×2 (08:45→20:29)
--- NOTE | 2020-07-12 09:31 | Critical Care Progress Note ---
Date of Service July 12, 2020 Assessment & Plan (1) Acute hypoxemic respiratory failure: (2) Pneumonia due to COVID-19 virus: Impression: 65-year-old male with morbid obesity and ARDS secondary to COVID-19 pneumonia. He is failed conservative measures with oxygen and BiPAP and intubation mechanical ventilation are recommended. 24 Hour events: Patient transferred to the ICU on BiPAP. He was intubated. Central lines and arterial lines were placed. We contacted [facility]. He is n ot a candidate for any advanced therapies due to his age. He was proned. His PF ratio improved from 70 to over 230 with prone positioning. I assisted staff with flipping him back to the supine position at 1130 today. No evidence of skin breakdown. He tolerated the maneuver without difficulty. The patient's also tested positive for Covid and is now admitted to the hospital as well. Recommendations: 1. Neurologic: We will continue aggressive sedation at this point time. Given his severe ARDS will continue on neuromuscular blockade for 48 to 72 hours to facilitate compliance with ventilator. He uses Ativan in the outpatient setting so we will add fentanyl and Versed to his propofol. Will check triglycerides in 2 days. 2. Pulmonary: Severe ARDS secondary to COVID-19 pneumonia. Continue ARDSnet ventilatory strategy and trying keep plateau pressures below 35. Current #s 7. 35/61/132 - Vent AC 32/350/16/0.85 I:E 1.5:1. Pplat 30. We may consider inhaled epoprostenol as inhaled nitric oxide is not available. Continue dexamethasone per protocol. Patient is too far out to consider convalescent plasma or remdesivir. If we are able to get Fio2 below 0.6, may consider no rmalizing I:E ratios. Hold neb epoprost as potential salvage if unable to improve. Flipped back to supine at 1130. We will see how he does and perform routine nutrition care and reassess around 3 or 4 this afternoon to see if we need to flip him back to the prone position. 3. Cardiovascular: History of coronary disease. He hemodynamically stable currently. Will use norepinephrine to maintain mean arterial pressure >65 if needed. History of CARSON, restart ASA. 4. Renal: No current issues. Electrolyte replacement will be initiated. Follow acid-base status. Trend urine output. 5. GI: No current issues. PPI will be initiated. start trophic tube feeding. 6. ID: The patient has been on broad-spectrum antibiotics since presentation. These were discontinued 07/11 as his procalcitonin was negative and his white count is normal. Fevers overnight. Check resp culture as well as UA and blood cultures. Hold antibiotics for now 7. Endocrine: Glycemic control per protocol. 8. Heme-onc: No current issues. DVT prophylaxis with Lovenox. Patient's overall prognosis is guarded at this point time. He did improve significantly with proning. Son will be updated via phone. we again discussed code status as I am not convinced that CPR would be helpful in this situation. He and the family have taken it under advisement. The patient is critically ill with significant possibility of clinical deterioration and . A total of 48 minutes critical care time was spent in evaluation management stabilization of this patient including discussion son on the phone. Admission and Anticipated Discharge Date Admission Date: July 08, 2020 Subjective intubated, sedated and proned. Review of Systems Review of Systems: Unobtainable due to endotracheal tube Results & Data Results & Data ([facility]) Vital Signs (Past 12 Hours) Vital Signs Temp Pulse Resp BP Pulse Ox 07/12/20 07:00 38.2 C H 74 95 07/12/20 05:57 38.1 C H 71 32 H 108/66 94 07/12/20 05:27 38.1 C H 69 32 H 103/62 94 07/12/20 04:57 38.0 C H 67 98/59 L 93 07/12/20 04:50 38.0 C H 68 103/60 93 07/12/20 04:27 37.9 C H 70 32 H 105/58 L 92 07/12/20 03:57 38.0 C H 68 32 H 93/56 L 90 07/12/20 03:50 71 32 H 94 07/12/20 03:27 37.8 C H 68 32 H 116/66 93 07/12/20 02:57 37.8 C H 66 32 H 111/62 93 07/12/20 02:27 37.7 C H 62 32 H 120/69 94 07/12/20 01:57 37.7 C H 64 32 H 123/74 94 07/12/20 01:27 37.7 C H 58 L 32 H 115/67 93 07/12/20 01:00 37.7 C H 57 L 93 07/12/20 00:57 37.6 C H 57 L 114/67 93 07/12/20 00:27 37.6 C H 57 L 32 H 110/68 92 07/12/20 00:11 61 32 H 89 L 07/12/20 00:09 37.6 C H 57 L 32 H 109/64 87 L 07/12/20 00:05 37.6 C H 62 32 H 78/51 L 90 07/12/20 00:00 62 07/11/20 23:32 37.6 C H 65 32 H 113/66 93 07/11/20 23:27 66 32 H 114/73 94 07/11/20 22:57 37.6 C H 67 116/71 95 07/11/20 22:27 37.6 C H 67 120/74 95 07/11/20 21:57 37.6 C H 66 34 H 112/73 95 Laboratory Results 07/12/20 04:39 07/12/20 04:39 7.35/61/132 - Vent AC 32/350/16/0.85 I:E Coding Level of Care Code Critical Care 1st 30-74 mins Diagnoses Acute hypoxemic respiratory failure J96.01 Pneumonia due to COVID-19 virus U07.1; J12.82
[2020-07-12] MEDS ORDERED: ACETAMINOPHEN SUSP 500 MG/15.6 ML UDP PO PRN (10:51)
[2020-07-12] MEDS ORDERED: GLUCOSE 40% GEL 15 GM TUBE PO PRN (11:00)
[2020-07-12] MEDS ORDERED: GLUCAGON FOR INJ 1 MG VIAL IM PRN (11:00)
[2020-07-12] MEDS ORDERED: GLUCOSE 10 TABS/TUBE PO PRN (11:00)
[2020-07-12] MEDS ORDERED: DEXTROSE 50% 50 ML SYRINGE IV PRN (11:00)
[2020-07-12] MEDS ORDERED: CARBOHYDRATES FOR HYPOGLYCEMIA PO PRN (11:00)
[2020-07-12] MEDS: ASPIRIN 81 MG CHEW PO SCH (11:20)
[2020-07-12] MEDS: ATORVASTATIN 40 MG TAB PO SCH (11:20)
[2020-07-12] MEDS: PANTOprazole 40 MG in SYRINGE 0 ML IV SCH (11:24)
[2020-07-12] MEDS: ACETAMINOPHEN SUSP 325 MG/10.15 ML UDC PO PRN ×2 (11:45→18:10)
[2020-07-12] MEDS: PEPTAMEN INTENSE VHP 1.0 CAL 1,000 ML BAG OG SCH (13:11)
[2020-07-12] MEDS: INSULIN ASPART 100 UNITS/ML 3 ML PEN SC SCH ×2 (13:12→18:54)
[2020-07-12] MEDS: ARTIFICIAL TEARS OP OINT 3.5 GM TUBE OP PRN ×3 (13:48→23:01)
--- NOTE | 2020-07-12 15:14 | XRay Report ---
XR chest 1V portable CLINICAL HISTORY: Respiratory failure. Covid. COMPARISON STUDY: Chest radiograph 07/11/2020. FINDINGS: The tip of the endotracheal tube is 4.8 cm above the laverne. Tip of nasogastric tube is at least within the body of the stomach. Left subclavian central line is in place. Cardiomediastinal clarisa houette is stable. There is no pneumothorax or pleural effusion. Interstitial thickening and extensiv e bilateral opacities persist. Lung aeration has slightly improved. 8 mm calcified left lung granulom a is present. IMPRESSION: 1. Satisfactory positioning of lines and tubes. 2. Persistent, but slightly improved, extensive bilateral airspace opacities consistent with an infec tious process. ACT 112: Negative or not required by law. Electronically signed by: Leoncio Bernardo M.D. 07/12/2020 3:12 PM
--- NOTE | 2020-07-12 17:25 | Hospitalist Progress Note ---
Date of Service July 12, 2020 Assessment & Plan (1) Pneumonia due to COVID-19 virus: Pneumonia due to COVID-19 He had a positive test 7 days INJECTION [facility] at [facility] with no previous treatment. Had difficulty with tolerating Vapotherm high flow nasal cannula and was not able to maintain pulse ox greater than 88% on max settings of high flow along with 15 L nonrebreather mask over his mouth Mentation began to worsen and he became hypercapnic as well on the morning of 07/11, also tachypneic Placed on trial of BiPAP and failed Chest x-ray and overall picture consistent with ARDS Transferred to ICU and was intubated and is mechanically ventilated as of the a.m. of 07/11 -Appreciate carburetor rebuilder management -Intermittent Prone positioning, paralytics while on ventilator along with sedation -Considering epoprostenol as an inhaled vasodilator as inhaled nitric oxide is not available here -Continue dexamethasone 6 mg IV once daily x10-day course -Continue albuterol -He is outside the range for giving remdesivir or convalescent plasma as he is over 1 week out from diagnosis -Initially was given IV azithromycin but procalcitonin negative and no leukocytosis-this was discontinued -started having fevers on 07/11 -sputum culture pending -BCxs from admission NGTD (2) Acute hypoxemic respiratory failure: As noted above Improving now with prone positioning, FiO2 down to 60 ABG showed 7.33/57/70 on 100% FiO2 consistent with hypoxemia as well as h ypercapnia Mechanical ventilation as above (3) Sepsis: Sepsis in setting of COVID19 pneumonia with septic shock Now on levophed for hypotension Treatment as above if continues to spike fevers, recommend repeat BCxs, Ur cx -continue ceftriaxone for UTI for now (4) Acute kidney injury: Creatinine 2.38 upon admission, with recent 1.36 INJECTION [employer] Has improved to 1.2 and remained stable Initially given IV fluids, but later required furosemide 40 mg IV due to worsening hypoxia Continue to hold telmisartan/HCTZ and diclofenac Received another dose of IV Lasix 07/11 Follow CMP Follow urine output Placed Alicia catheter (5) Elevated troponin: likely secondary to myocardial demand ischemia Was minimally elevated at 0.035/0.019/0.02 ECG without ischemic changes (6) UTI (urinary tract infection): Urinalysis abnormal He denies symptoms but has had UTIs in the past Urine culture growing E. coli resistant to ampicillin, Unasyn, and Bactrim, but sensitive to ceftriaxone -Continue ceftriaxone 2 g IV every 24 hours x7 to 10-day course (7) Elevated transaminase level: AST and ALT are up to 99 and 74, respectively This is secondary to Covid-19 pneumonia Follow CMP (8) Anxiety: On lorazepam 1 mg 3 times daily at home Now receiving Versed as needed while ventilated (9) Hypokalemia: replaced and now resolved Follow BMP, magnesium (10) Hypertension: Blood pressures are low, requiring pressor Holding home telmisartan/HCT for acute kidney injury Metoprolol on hold while intubated Norepinephrine as needed (11) Osteoarthritis: Hold diclofenac due to acute kidney injury (12) CAD (coronary artery disease), rosebud coronary artery: With a history of coronary stent Troponin minimally elevated and stable x2 most likely secondary to myocardial demand ischemia from profound hypoxia restart aspirin 81 mg daily given presence of stent -holding metoprolol succinate 50 mg daily for hypotension (13) Hyperlipidemia: Continue atorvastatin 80 mg every morning (14) DVT prophylaxis: Lovenox 40 mg SQ every 12 FEN-no IV fluids other than medications, starting tube feeds today while supine [id number], central venous catheter, Alicia catheter, peripheral IV Disposition-continued stay in ICU Admission and Anticipated Discharge Date Admission Date: July 08, 2020 Subjective intubated, sedated Remains on Norepi,had fevers overnight and today. Was prone through the night and flipped to supine today Review of Systems Review of Systems: Unobtainable due to endotracheal tube and Unobtainable due to reduced consciousness Physical Exam Constitutional: WD/WN, vitals as above + obese and + mechanically ventilated; no acute distress Results & Data Results & Data ([facility]) Vital Signs (Past 12 Hours) Vital Signs Temp Pulse Pulse Pulse Resp BP BP 07/12/20 15:30 38.3 C H 82 07/12/20 15:27 38.3 C H 82 91/58 L 07/12/20 15:15 81 32 H 07/12/20 14:57 38.3 C H 82 105/58 L 07/12/20 14:27 38.2 C H 79 94/61 L 07/12/20 13:57 38.3 C H 77 101/56 L 07/12/20 13:27 38.3 C H 78 90/60 L 07/12/20 12:57 38.4 C H 77 89/60 L 07/12/20 12:30 38.3 C H 77 07/12/20 12:00 38.3 C H 78 113/65 07/12/20 11:57 38.3 C H 78 106/67 07/12/20 11:43 38.4 C H 84 143/75 H 07/12/20 11:40 38.4 C H 88 32 H 131/104 H 07/12/20 11:27 38.4 C H 76 113/66 07/12/20 10:57 38.4 C H 76 115/65 07/12/20 10:30 38.4 C H 76 07/12/20 10:00 38.3 C H 76 76 76 32 H 127/68 07/12/20 09:57 38.3 C H 75 113/68 07/12/20 09:30 38.3 C H 74 07/12/20 09:27 38.3 C H 83 111/66 07/12/20 09:00 38.3 C H 78 07/12/20 08:57 38.3 C H 79 98/59 L 07/12/20 08:30 38.2 C H 82 07/12/20 08:27 38.2 C H 77 118/67 07/12/20 08:00 38.2 C H 75 75 75 32 H 07/12/20 07:57 38.2 C H 73 112/67 07/12/20 07:30 38.2 C H 75 07/12/20 07:27 38.2 C H 76 118/74 07/12/20 07:20 74 33 H 07/12/20 07:00 38.2 C H 74 07/12/20 05:57 38.1 C H 71 32 H 108/66 07/12/20 05:27 38.1 C H 69 32 H 103/62 BP Pulse Ox 07/12/20 15:30 92 07/12/20 15:27 91 07/12/20 15:15 91 07/12/20 14:57 90 07/12/20 14:27 91 07/12/20 13:57 91 07/12/20 13:27 91 07/12/20 12:57 90 07/12/20 12:30 90 07/12/20 12:00 91 07/12/20 11:57 91 07/12/20 11:43 93 07/12/20 11:40 90 07/12/20 11:27 93 07/12/20 10:57 93 07/12/20 10:30 94 07/12/20 10:00 113/68 94 07/12/20 09:57 94 07/12/20 09:30 94 07/12/20 09:27 94 07/12/20 09:00 93 07/12/20 08:57 93 07/12/20 08:30 94 07/12/20 08:27 94 07/12/20 08:00 98/59 L 94 07/12/20 07:57 94 07/12/20 07:30 93 07/12/20 07:27 94 07/12/20 07:20 93 07/12/20 07:00 95 07/12/20 05:57 94 07/12/20 05:27 94 Laboratory Results 07/12/20 07/12/20 07/12/20 Range/Units 11:46 04:52 04:39 WBC (4.8-10.8) K/uL RBC (4.7-6.1) M/uL Hgb (14.0-18.0) g/dL POC Hgb (14.0-18.0) g/dl Hct (42-52) % POC Hct (42-52) % MCV (80-100) fL MCH (25-34) pg MCHC (32-36) g/dL RDW Std Deviation (36.4-46.3) fL RDW Coeff of Fernanda (11.5-14.5) % Plt Count (130-400) K/uL MPV (7.4-10.4) fL Immature Gran % (Auto) % Neut % (Auto) % Lymph % (Auto) % [place] % (Auto) % Eos % (Auto) % Baso % (Auto) % Neut # (Auto) (1.4-6.5) K/uL Lymph # (Auto) (1.2-3.4) K/uL [place] # (Auto) (0.11-0.59) K/uL Eos # (Auto) (0-0.5) K/uL Baso # (Auto) (0-0.2) K/uL Immature Gran # (Auto) (0.00-0.02) K/uL Sample Site POC pH (7.35-7.45) POC pCO2 (35-46) mmHg POC pO2 (80-95) mmHg POC HCO3 (19-24) nakul/L POC Total CO2 (24-31) mmol/L POC Base Excess (-9-1.8) nakul/L ABG pH (Temp Correct) (7.35-7.45) ABG pCO2 (Temp Corrct (35-46) mmHg POC ABG pO2 at Pt Temp POC ABG O2 Sat (90-95) % Tavo Test O2 Delivery Device POC O2 Rate Minute Ventilation POC FiO2 % Tidal Volume PEEP POC Sodium (135-144) mmol/L Sodium 137 (136-145) mmol/L POC Potassium (3.3-5.0) mmol/L Potassium 3.6 (3.5-5.1) mmol/L Chloride 99 (98-107) mmol/L Carbon Dioxide 33 H (21-32) mmol/L Anion Gap 5.0 (3-11) BUN 40 H (7-18) mg/dl Creatinine 1.20 (0.6-1.4) mg/dl Est Cr Clr Drug Dosing 78.6 ml/min Est GFR ( Amer) 72.1 Est GFR (Non-Af Amer) 62.2 BUN/Creatinine Ratio 33.2 H (10-20) Glucose 140 H (70-99) mg/dl POC Glucose 167 H 145 H (70-99) mg/dl Calcium 7.8 L (8.5-10.1) mg/dl Phosphorus 3.2 (2.5-4.9) mg/dl Magnesium 2.8 H (1.8-2.4) mg/dl 07/12/20 07/12/20 07/11/20 Range/Units 04:39 03:44 21:07 WBC 11.73 H (4.8-10.8) K/uL RBC 4.75 (4.7-6.1) M/uL Hgb 14.9 (14.0-18.0) g/dL POC Hgb 15.3 (14.0-18.0) g/dl Hct 44.3 (42-52) % POC Hct 45 (42-52) % MCV 93.3 (80-100) fL MCH 31.4 (25-34) pg MCHC 33.6 (32-36) g/dL RDW Std Deviation 48.8 H (36.4-46.3) fL RDW Coeff of Fernanda 14.4 (11.5-14.5) % Plt Count 172 (130-400) K/uL MPV 10.1 (7.4-10.4) fL Immature Gran % (Auto) 0.5 % Neut % (Auto) 90.7 % Lymph % (Auto) 4.9 % [place] % (Auto) 3.8 % Eos % (Auto) 0.0 % Baso % (Auto) 0.1 % Neut # (Auto) 10.64 H (1.4-6.5) K/uL Lymph # (Auto) 0.57 L (1.2-3.4) K/uL [place] # (Auto) 0.45 (0.11-0.59) K/uL Eos # (Auto) 0.00 (0-0.5) K/uL Baso # (Auto) 0.01 (0-0.2) K/uL Immature Gran # (Auto) 0.06 H (0.00-0.02) K/uL Sample Site Art Line POC pH 7.35 (7.35-7.45) POC pCO2 61 H (35-46) mmHg POC pO2 132 H (80-95) mmHg POC HCO3 34 H (19-24) nakul/L POC Total CO2 36 H (24-31) mmol/L POC Base Excess 9.0 H (-9-1.8) nakul/L ABG pH (Temp Correct) 7.340 L (7.35-7.45) ABG pCO2 (Temp Corrct 64 H (35-46) mmHg POC ABG pO2 at Pt Temp 138 POC ABG O2 Sat 99.0 H (90-95) % Tavo Test NA O2 Delivery Device Ventilator POC O2 Rate 32 Minute Ventilation 12.2 POC FiO2 85 % Tidal Volume 350 PEEP 16 POC Sodium 135 (135-144) mmol/L Sodium (136-145) mmol/L POC Potassium 3.8 (3.3-5.0) mmol/L Potassium (3.5-5.1) mmol/L Chloride (98-107) mmol/L Carbon Dioxide (21-32) mmol/L Anion Gap (3-11) BUN (7-18) mg/dl Creatinine (0.6-1.4) mg/dl Est Cr Clr Drug Dosing ml/min Est GFR ( Amer) Est GFR (Non-Af Amer) BUN/Creatinine Ratio (10-20) Glucose (70-99) mg/dl POC Glucose 155 H (70-99) mg/dl Calcium (8.5-10.1) mg/dl Phosphorus (2.5-4.9) mg/dl Magnesium (1.8-2.4) mg/dl PG Care Time/CCT Total # of Minutes Spent Total Time Spent with Patient: Total time spent is greater than 50% in coordination of care (as documented) at patient's floor/unit and/or counseling patient: Coding Level of Care Code 71552 Subseq Hosp Care Lvl 1 Diagnoses Pneumonia due to COVID-19 virus U07.1; J12.82 Acute hypoxemic respiratory failure J96.01 Sepsis A41.9 Acute kidney injury N17.9 Elevated troponin R77.8 UTI (urinary tract infection) N39.0 Elevated transaminase level R74.01 Anxiety F41.9 Hypokalemia E87.6 Hypertension I10 Osteoarthritis M19.90 CAD (coronary artery disease), rosebud coronary artery I25.10 Hyperlipidemia E78.5 DVT prophylaxis Z29.9
[2020-07-12] MEDS: MIDAZOLAM HCL 125 MG/250 ML BAG IV SCH (19:48)
[2020-07-12] MEDS: ASPIRIN 81 MG ECTAB PO SCH (20:30)
[2020-07-12 20:44] LABS: Phosphorus 2.8 mg/dl (2.5-4.9); Potassium 4.2 mmol/L (3.5-5.1)
[2020-07-12] MEDS ORDERED: ACETAMINOPHEN 1,000 MG/100 ML VIAL IV PRN (22:01)
[2020-07-13] MEDS: INSULIN ASPART 100 UNITS/ML 3 ML PEN SC SCH ×5 (00:04→23:24)
[2020-07-13] MEDS: CISATRACURIUM BESYLATE 40 MG in 0.9 % SODIUM CHLORIDE 80 ML IV SCH ×7 (02:23→13:10)
[2020-07-13 04:26] LABS: iSTAT Art Bld Gas pCO2 Correct 64 mmHg (35-46); iSTAT Art Bld Gas pH Corrected 7.364 (7.35-7.45); iSTAT Arterial Blood Gas HCO3 36 meg/L (19-24); iSTAT Arterial Blood Gas pCO2 59 mmHg (35-46); iSTAT Arterial Blood Gas pH 7.39 (7.35-7.45); iSTAT Arterial Blood Gas pO2 99 mmHg (80-95); iSTAT Arterial Blood Gas pO2 C 111; iSTAT Carbon Dioxide 38 mmol/L (24-31); iSTAT FiO2 60 %; iSTAT Hematocrit 43 % (42-52); iSTAT Hemoglobin 14.6 g/dl (14.0-18.0); iSTAT Site Art Line; iSTAT Sodium 137 mmol/L (135-144)
[2020-07-13 04:40] LABS: Hematocrit (blood only) 43.1 % (42-52); Hemoglobin 14.2 g/dL (14.0-18.0); Mean Corpuscular Hemoglobin 31.2 pg (25-34); Mean Corpuscular Hgb Conc 32.9 g/dL (32-36); Mean Corpuscular Volume 94.7 fL (80-100); Platelet Count 192 K/uL (130-400); RDW Coefficient of Variation 14.3 % (11.5-14.5); RDW Standard Deviation 49.7 fL (36.4-46.3); Red Blood Count 4.55 M/uL (4.7-6.1); White Blood Count 11.03 K/uL (4.8-10.8)
[2020-07-13 05:05] LABS: Basophils # (auto) 0.02 K/uL (0-0.2); Basophils % (auto) 0.2 %; Immature Granulocytes # (auto) 0.08 K/uL (0.00-0.02); Immature Granulocytes % (auto) 0.7 %; Lymphocytes # (auto) 0.48 K/uL (1.2-3.4); Lymphocytes % (auto) 4.4 %; Monocytes # (auto) 0.82 K/uL (0.11-0.59); Monocytes % (auto) 7.4 %; Neutrophils # (auto) 9.63 K/uL (1.4-6.5); Neutrophils % (auto) 87.3 %
[2020-07-13 05:07] LABS: Albumin Level 2.3 gm/dl (3.4-5.0); BUN Creatinine Ratio 26.9 (10-20); Creatinine Clr Calc Pharmacy 69.4 ml/min; Est GFR (Non-African American) 53.5; Magnesium 3.2 mg/dl (1.8-2.4)
[2020-07-13 05:14] LABS: Albumin Globulin Ratio 0.5 (0.9-2); Bilirubin,Total 0.5 mg/dl (0.2-1); Globulin 4.7 gm/dl (2.5-4.0)
[2020-07-13] MEDS: ICU ELECTROLYTE REPLACEMENT PROTOCOL SCH ×2 (05:43→13:10)
[2020-07-13] MEDS ORDERED: SODIUM PHOSPHATE 3 MMOL/1 ML INFUSION IV STA (05:45)
[2020-07-13] MEDS ORDERED: SODIUM PHOSPHATE 15 MMOL in SODIUM CHLORIDE 0.9% 250 ML IV ONE (06:15)
[2020-07-13] MEDS: ACETAMINOPHEN SUSP 325 MG/10.15 ML UDC OG PRN ×2 (06:21→15:09)
[2020-07-13] MEDS: ARTIFICIAL TEARS OP OINT 3.5 GM TUBE OP PRN (06:21)
[2020-07-13] MEDS: propofoL 1,000 MG/100 ML VIAL IV SCH ×5 (07:11→23:24)
[2020-07-13] MEDS: MIDAZOLAM HCL 125 MG/250 ML BAG IV SCH ×2 (07:57→23:24)
[2020-07-13] MEDS: fentaNYL DRIP 1,250 MCG/250 ML BAG IV SCH ×3 (07:58→22:16)
[2020-07-13] MEDS: NOREPINEPHRINE/D5W 8 MG/508 ML BAG IV SCH (07:58)
[2020-07-13] MEDS: dexAMETHasone 6 MG in SYRINGE 0 ML IV SCH (07:59)
[2020-07-13] MEDS: cefTRIAXone SODIUM 2,000 MG in DEXTROSE 5% 50 ML IV SCH (07:59)
[2020-07-13] MEDS: ATORVASTATIN 40 MG TAB PO SCH (08:01)
[2020-07-13] MEDS: ENOXAPARIN INJ 40 MG/0.4 ML SYR SQ SCH ×2 (08:01→19:53)
[2020-07-13] MEDS: ASPIRIN 81 MG CHEW PO SCH (08:01)
[2020-07-13] MEDS: PEPTAMEN INTENSE VHP 1.0 CAL 1,000 ML BAG OG SCH (08:35)
--- NOTE | 2020-07-13 09:22 | Critical Care Progress Note ---
Date of Service July 13, 2020 Assessment & Plan (1) Acute hypoxemic respiratory failure: (2) Pneumonia due to COVID-19 virus: Impression: 65-year-old male with morbid obesity and ARDS secondary to COVID-19 pneumonia. He is failed conservative measures with oxygen and BiPAP and intubation mechanical ventilation are recommended. 24 Hour events: Patient flipped from prone position to supine position yesterday around noon. He is shown continued improvement we been able to wean his PEEP and FiO2. He remains on low-dose vasopressors. Enteral nutrition was initiated at low-dose. He remains intubated sedated and paralyzed. Recommendations: 1. Neurologic: We will continue aggressive sedation at this point time. Given his severe ARDS will continue on neuromuscular blockade for at least additional 24 hours to facilitate compliance with ventilator. He uses Ativan in the outpatient setting so we will continue fentanyl and Versed as well as propofol. Will check triglycerides 2. Pulmonary: Severe ARDS secondary to COVID-19 pneumonia. Continue ARDSnet ventilatory strategy and trying keep plateau pressures below 35. Current #s 7.39/59/99 - Vent AC 32/350/16/0.85 I:E 1.5:1. Pplat 30. P/F = 165, slightly worse than yesterday. We may consider inhaled epoprostenol as inhaled nitric oxide is not available. Continue dexamethasone per protocol. Tolerating supine position currently. Cstat40, Pplat 25 on AC 32/380/10/0.6 I:E2:1. CXR better. 3. Cardiovascular: History of coronary disease. He hemodynamically stable currently. Will use norepinephrine to maintain mean arterial pressure >65 if needed. History of CARSON, continue ASA. 4. Renal: No current issues. Electrolyte replacement will be initiated. Follow acid-base status. Trend urine output. 5. GI: No current issues. PPI will be initiated. Continue trophic tube feeding hold on advancing until HD better. 6. ID: E Coli UTI on presentation. Continue rocephin. Await respiratory and blood cultures. Fevers likely related to viral pna. Continue tylenol and external cooling measures. 7. Endocrine: Glycemic control per protocol. 8. Heme-onc: No current issues. DVT prophylaxis with Lovenox. Patient's overall prognosis remains guarded at this point time. Son will be updated via phone. The patient is critically ill with significant possibility of clinical deterioration and . A total of 45 minutes critical care time was spent in evaluation management stabilization of this patient including discussion son on the phone. Admission and Anticipated Discharge Date Admission Date: July 08, 2020 Subjective intubated and sedated and paralyzed Review of Systems Review of Systems: Unobtainable due to endotracheal tube Physical Exam Constitutional: + obese and + mechanically ventilated intubated, sedated an d paralyzed Eyes: + anicteric sclerae ENMT: ETT, OGT Neck: trachea midline, no thyromegaly Respiratory: Coarse breath sounds bilaterally. Rales dependently. Cardiovascular: RRR, no murmur, no edema Chest (Breasts): Chest: normal inspection of chest Gastrointestinal (Abdomen): normal bowel sounds, soft, nontender, no hepatosplenomegaly Musculoskeletal: Extremities: extremities normal to inspection; no cyanosis and no clubbing Skin: no rashes, warm and dry Neurologic: moves all extremities and awake; no focal motor deficits sedated adn paralyzed Psychiatric: A+Ox3, euthymic affect Lymphatic: no lymphedema Results & Data Results & Data ([facility]) Vital Signs (Past 12 Hours) Vital Signs Temp Pulse Resp BP Pulse Ox 07/13/20 07:35 86 32 H 94 07/13/20 06:14 38.8 C H 88 32 H 103/78 89 L 07/13/20 05:58 38.9 C H 82 32 H 110/70 94 07/13/20 05:28 38.9 C H 84 32 H 107/74 94 07/13/20 04:58 38.9 C H 84 32 H 101/70 94 07/13/20 04:36 84 32 H 94 07/13/20 04:28 38.9 C H 85 32 H 102/66 93 07/13/20 03:58 38.9 C H 82 32 H 101/65 94 07/13/20 03:28 38.9 C H 83 32 H 99/63 L 94 07/13/20 02:58 38.9 C H 85 32 H 107/65 94 07/13/20 02:28 38.7 C H 89 32 H 106/65 94 07/13/20 01:58 38.6 C H 88 32 H 131/73 93 07/13/20 01:28 38.6 C H 86 32 H 122/72 93 07/13/20 00:58 38.5 C H 85 32 H 113/71 93 07/13/20 00:28 38.5 C H 87 32 H 114/66 93 07/12/20 23:59 88 07/12/20 23:58 38.6 C H 93 H 32 H 136/75 92 07/12/20 23:33 90 32 H 93 07/12/20 23:28 38.6 C H 89 32 H 113/65 92 07/12/20 22:58 38.7 C H 90 119/66 93 07/12/20 22:27 38.7 C H 91 H 112/69 93 07/12/20 21:57 38.6 C H 90 32 H 113/69 93 07/12/20 21:27 38.5 C H 88 32 H 110/67 93 Laboratory Results 07/13/20 04:21 07/13/20 04:21 Respiratory culture no growth to date. Urine culture from 07/09/2020 with E. coli resistant to Augmentin ampicillin Unasyn and Bactrim Diagnostic Findings Chest x-ray independently reviewed. Persistent bilateral pulmonary infiltrates. Tubes and lines in appropriate positions. There appears to be mild improvement in aeration's although this may be secondary to technique as the patient's lung volumes are slightly better today. Coding Level of Care Code Critical Care 1st 30-74 mins Diagnoses Acute hypoxemic respiratory failure J96.01 Pneumonia due to COVID-19 virus U07.1; J12.82
[2020-07-13] MEDS: PANTOprazole 40 MG in SYRINGE 0 ML IV SCH (11:09)
[2020-07-13] MEDS ORDERED: Nursing to Pharmacy Communication SCH (11:45)
[2020-07-13] MEDS: CISATRACURIUM BESYLATE 100 MG in SODIUM CHLORIDE 0.9% 200 ML IV SCH ×2 (14:47→19:52)
--- NOTE | 2020-07-13 15:55 | XRay Report ---
XR chest 1V portable CLINICAL HISTORY: Respiratory failure. COMPARISON STUDY: Chest radiograph July 12, 2020. FINDINGS: Tip of the endotracheal tube is 5.3 cm above the laverne. Tip of nasogastric tube is at leas t within the proximal stomach. Left subclavian central line remains in place. There is no pneumothora x or pleural effusion. Cardiomegaly is unchanged. Bilateral airspace opacities have slightly progress ed. Calcified granuloma within the left lung is noted. IMPRESSION: 1. Satisfactory positioning of lines and tubes. 2. Mild progression of bilateral airspace opacities consistent with an infectious process. ACT 112: Negative or not required by law. Electronically signed by: Leoncio Bernardo M.D. 07/13/2020 3:53 PM
--- NOTE | 2020-07-13 18:53 | Hospitalist Progress Note ---
Date of Service July 13, 2020 Assessment & Plan (1) Pneumonia due to COVID-19 virus: Pneumonia due to COVID-19 He had a positive test 7 days [employer] at [facility] with no previous treatment. Had difficulty with tolerating Vapotherm high flow nasal cannula and was not able to maintain pulse ox greater than 88% on max settings of high flow along with 15 L nonrebreather mask over his mouth Mentation began to worsen and he became hypercapnic as well on the morning of 07/11, also tachypneic Placed on trial of BiPAP and failed Chest x-ray and overall picture consistent with ARDS Transferred to ICU and was intubated and is mechanically ventilated as of the a.m. of 07/11 Remains intubated,sedated, paralyzed. FiO2 requirement down to 70%. Was not proned today. 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 -Considering epoprostenol as an inhaled vasodilator as inhaled nitric oxide is not available here -Continue dexamethasone 6 mg IV once daily x10-day course -Continue albuterol -He is outside the range for giving remdesivir or convalescent plasma as he is over 1 week out from diagnosis -Initially was given IV azithromycin but procalcitonin negative and no leukocytosis-this was discontinued -started having fevers on 07/11 and persists today -sputum culture pending -BCxs from admission NGTD, repeat BCxs 07/13 pending (2) Acute hypoxemic respiratory failure: As noted above Improving now with prone positioning, FiO2 down to 70 ABG showed 7.33/57/70 on 100% FiO2 consistent with hypoxemia as well as hypercapnia shortly after intubation Mechanical ventilation as above (3) Sepsis: Sepsis in setting of COVID19 pneumonia with septic shock Now on levophed for hypotension With fevers developing on 07/10 possibly due to viral PNA Treatment as above -continue ceftriaxone for UTI for now -follow repeat BCxs (4) Acute kidney injury: Creatinine 2.38 upon admission, with recent 1.36 [employer] Has improved to 1.3 and remained stable Initially given IV fluids, but later required furosemide 40 mg IV due to worsening hypoxia Continue to hold telmisartan/HCTZ and diclofenac Received another dose of IV Lasix 07/11 Follow CMP Follow urine output Placed Alicia catheter (5) Elevated troponin: likely secondary to myocardial demand ischemia Was minimally elevated at 0.035/0.019/0.02 ECG without ischemic changes (6) UTI (urinary tract infection): Urinalysis abnormal He denies symptoms but has had UTIs in the past Urine culture growing E. coli resistant to ampicillin, Unasyn, and Bactrim, but sensitive to ceftriaxone -Continue ceftriaxone 2 g IV every 24 hours x7 to 10-day course (7) Elevated transaminase level: AST and ALT were up to 99 and 74, respectively, and now trending down towards normal This is secondary to Covid-19 pneumonia Follow CMP (8) Anxiety: On lorazepam 1 mg 3 times daily at home Now receiving Versed as needed while ventilated (9) Hypokalemia: replaced and now resolved Follow BMP, magnesium (10) Hypertension: Blood pressures are low, requiring pressor Holding home telmisartan/HCT for acute kidney injury Metoprolol on hold as well Norepinephrine as needed (11) Osteoarthritis: Hold diclofenac due to acute kidney injury (12) CAD (coronary artery disease), [place] coronary artery: With a history of coronary stent Troponin minimally elevated and stable x2 most likely secondary to myocardial demand ischemia from profound hypoxia -continue aspirin 81 mg daily given presence of stent -continue statin -holding metoprolol succinate 50 mg daily for hypotension (13) Hyperlipidemia: Continue atorvastatin 80 mg every morning (14) DVT prophylaxis: Lovenox 40 mg SQ every 12 FEN-no IV fluids other than medications, trophic tube feeds, no advancement of feeds due to need for vasopressors [id number], central venous catheter, Alicia catheter, peripheral IV Disposition-continued stay in ICU Admission and Anticipated Discharge Date Admission Date: July 08, 2020 Subjective Pt remains intubated and sedated. Reviewed care with cad programmer of Systems Review of Systems: Unobtainable due to endotracheal tube and Unobtainable due to reduced consciousness Physical Exam Constitutional: WD/WN, vitals as above + obese and + mechanically ventilated; no acute distress Results & Data Results & Data ([facility]) Vital Signs (Past 12 Hours) Vital Signs Temp Pulse Resp BP Pulse Ox 07/13/20 16:09 37.8 C H 71 130/67 94 07/13/20 16:00 37.8 C H 71 94 07/13/20 15:35 72 33 H 92 07/13/20 15:09 37.8 C H 72 144/77 H 94 07/13/20 14:10 37.9 C H 73 95 07/13/20 14:09 37.9 C H 73 135/73 95 07/13/20 14:00 37.9 C H 73 95 07/13/20 13:10 37.9 C H 74 95 07/13/20 13:09 37.9 C H 74 130/73 95 07/13/20 12:09 38.0 C H 74 129/69 92 07/13/20 12:00 38.1 C H 75 91 07/13/20 11:09 38.2 C H 80 122/68 88 L 07/13/20 10:50 81 32 H 89 L 07/13/20 10:45 38.5 C H 82 158/90 H 89 L 07/13/20 10:00 38.4 C H 97 H 99 07/13/20 09:30 38.3 C H 88 98 07/13/20 09:28 38.3 C H 89 130/82 98 07/13/20 09:00 38.1 C H 84 94 07/13/20 08:58 38.1 C H 82 119/73 94 07/13/20 08:30 38.3 C H 81 91 07/13/20 08:00 38.5 C H 81 93 07/13/20 07:58 38.5 C H 83 123/74 92 07/13/20 07:45 38.4 C H 07/13/20 07:35 86 32 H 94 07/13/20 07:30 38.6 C H 84 94 07/13/20 07:28 38.6 C H 84 127/77 94 07/13/20 07:00 38.7 C H 83 93 Laboratory Results 07/13/20 07/13/20 07/13/20 Range/Units 15:47 11:00 06:34 WBC (4.8-10.8) K/uL RBC (4.7-6.1) M/uL Hgb (14.0-18.0) g/dL POC Hgb (14.0-18.0) g/dl Hct (42-52) % POC Hct (42-52) % MCV (80-100) fL MCH (25-34) pg MCHC (32-36) g/dL RDW Std Deviation (36.4-46.3) fL RDW Coeff of Fernanda (11.5-14.5) % Plt Count (130-400) K/uL MPV (7.4-10.4) fL Immature Gran % (Auto) % Neut % (Auto) % Lymph % (Auto) % Weakley % (Auto) % Eos % (Auto) % Baso % (Auto) % Neut # (Auto) (1.4-6.5) K/uL Lymph # (Auto) (1.2-3.4) K/uL Weakley # (Auto) (0.11-0.59) K/uL Eos # (Auto) (0-0.5) K/uL Baso # (Auto) (0-0.2) K/uL Immature Gran # (Auto) (0.00-0.02) K/uL Sample Site POC pH (7.35-7.45) POC pCO2 (35-46) mmHg POC pO2 (80-95) mmHg POC HCO3 (19-24) nakul/L POC Total CO2 (24-31) mmol/L POC Base Excess (-9-1.8) nakul/L ABG pH (Temp Correct) (7.35-7.45) ABG pCO2 (Temp Corrct (35-46) mmHg POC ABG pO2 at Pt Temp POC ABG O2 Sat (90-95) % Tavo Test O2 Delivery Device POC O2 Rate POC FiO2 % Tidal Volume PEEP POC Sodium (135-144) mmol/L Sodium (136-145) mmol/L POC Potassium (3.3-5.0) mmol/L Potassium (3.5-5.1) mmol/L Chloride (98-107) mmol/L Carbon Dioxide (21-32) mmol/L Anion Gap (3-11) BUN (7-18) mg/dl Creatinine (0.6-1.4) mg/dl Est Cr Clr Drug Dosing ml/min Est GFR ( Amer) Est GFR (Non-Af Amer) BUN/Creatinine Ratio (10-20) Glucose (70-99) mg/dl POC Glucose 216 H 171 H (70-99) mg/dl POC Glucose (other) 152 H (70-99) mg/dl Calcium (8.5-10.1) mg/dl Phosphorus (2.5-4.9) mg/dl Magnesium (1.8-2.4) mg/dl Total Bilirubin (0.2-1) mg/dl AST (15-37) U/L ALT (12-78) U/L Alkaline Phosphatase (45-117) U/L Total Protein (6.4-8.2) gm/dl Albumin (3.4-5.0) gm/dl Globulin (2.5-4.0) gm/dl Albumin/Globulin Ratio (0.9-2) 07/13/20 07/13/20 07/13/20 Range/Units 04:21 04:21 04:12 WBC 11.03 H (4.8-10.8) K/uL RBC 4.55 L (4.7-6.1) M/uL Hgb 14.2 (14.0-18.0) g/dL POC Hgb 14.6 (14.0-18.0) g/dl Hct 43.1 (42-52) % POC Hct 43 (42-52) % MCV 94.7 (80-100) fL MCH 31.2 (25-34) pg MCHC 32.9 (32-36) g/dL RDW Std Deviation 49.7 H (36.4-46.3) fL RDW Coeff of Fernanda 14.3 (11.5-14.5) % Plt Count 192 (130-400) K/uL MPV 10.0 (7.4-10.4) fL Immature Gran % (Auto) 0.7 % Neut % (Auto) 87.3 % Lymph % (Auto) 4.4 % Weakley % (Auto) 7.4 % Eos % (Auto) 0.0 % Baso % (Auto) 0.2 % Neut # (Auto) 9.63 H (1.4-6.5) K/uL Lymph # (Auto) 0.48 L (1.2-3.4) K/uL Weakley # (Auto) 0.82 H (0.11-0.59) K/uL Eos # (Auto) 0.00 (0-0.5) K/uL Baso # (Auto) 0.02 (0-0.2) K/uL Immature Gran # (Auto) 0.08 H (0.00-0.02) K/uL Sample Site Art Line POC pH 7.39 (7.35-7.45) POC pCO2 59 H (35-46) mmHg POC pO2 99 H (80-95) mmHg POC HCO3 36 H (19-24) nakul/L POC Total CO2 38 H (24-31) mmol/L POC Base Excess 11.0 H (-9-1.8) nakul/L ABG pH (Temp Correct) 7.364 (7.35-7.45) ABG pCO2 (Temp Corrct 64 H (35-46) mmHg POC ABG pO2 at Pt Temp 111 POC ABG O2 Sat 97.0 H (90-95) % Tavo Test NA O2 Delivery Device Ventilator POC O2 Rate 32 POC FiO2 60 % Tidal Volume 350 PEEP 14 POC Sodium 137 (135-144) mmol/L Sodium 137 (136-145) mmol/L POC Potassium 4.0 (3.3-5.0) mmol/L Potassium 4.0 (3.5-5.1) mmol/L Chloride 100 (98-107) mmol/L Carbon Dioxide 35 H (21-32) mmol/L Anion Gap 2.0 L (3-11) BUN 37 H (7-18) mg/dl Creatinine 1.36 (0.6-1.4) mg/dl Est Cr Clr Drug Dosing 69.4 ml/min Est GFR ( Amer) 62.0 Est GFR (Non-Af Amer) 53.5 BUN/Creatinine Ratio 26.9 H (10-20) Glucose 144 H (70-99) mg/dl POC Glucose (70-99) mg/dl POC Glucose (other) (70-99) mg/dl Calcium 8.0 L (8.5-10.1) mg/dl Phosphorus 2.0 L (2.5-4.9) mg/dl Magnesium 3.2 H (1.8-2.4) mg/dl Total Bilirubin 0.5 (0.2-1) mg/dl AST 70 H (15-37) U/L ALT 69 (12-78) U/L Alkaline Phosphatase 38 L (45-117) U/L Total Protein 7.0 (6.4-8.2) gm/dl Albumin 2.3 L (3.4-5.0) gm/dl Globulin 4.7 H (2.5-4.0) gm/dl Albumin/Globulin Ratio 0.5 L (0.9-2) 07/12/20 07/12/20 Range/Units 23:57 19:56 WBC (4.8-10.8) K/uL RBC (4.7-6.1) M/uL Hgb (14.0-18.0) g/dL POC Hgb (14.0-18.0) g/dl Hct (42-52) % POC Hct (42-52) % MCV (80-100) fL MCH (25-34) pg MCHC (32-36) g/dL RDW Std Deviation (36.4-46.3) fL RDW Coeff of Fernanda (11.5-14.5) % Plt Count (130-400) K/uL MPV (7.4-10.4) fL Immature Gran % (Auto) % Neut % (Auto) % Lymph % (Auto) % Weakley % (Auto) % Eos % (Auto) % Baso % (Auto) % Neut # (Auto) (1.4-6.5) K/uL Lymph # (Auto) (1.2-3.4) K/uL Weakley # (Auto) (0.11-0.59) K/uL Eos # (Auto) (0-0.5) K/uL Baso # (Auto) (0-0.2) K/uL Immature Gran # (Auto) (0.00-0.02) K/uL Sample Site POC pH (7.35-7.45) POC pCO2 (35-46) mmHg POC pO2 (80-95) mmHg POC HCO3 (19-24) nakul/L POC Total CO2 (24-31) mmol/L POC Base Excess (-9-1.8) nakul/L ABG pH (Temp Correct) (7.35-7.45) ABG pCO2 (Temp Corrct (35-46) mmHg POC ABG pO2 at Pt Temp POC ABG O2 Sat (90-95) % Tavo Test O2 Delivery Device POC O2 Rate POC FiO2 % Tidal Volume PEEP POC Sodium (135-144) mmol/L Sodium (136-145) mmol/L POC Potassium (3.3-5.0) mmol/L Potassium 4.2 D (3.5-5.1) mmol/L Chloride (98-107) mmol/L Carbon Dioxide (21-32) mmol/L Anion Gap (3-11) BUN (7-18) mg/dl Creatinine (0.6-1.4) mg/dl Est Cr Clr Drug Dosing ml/min Est GFR ( Amer) Est GFR (Non-Af Amer) BUN/Creatinine Ratio (10-20) Glucose (70-99) mg/dl POC Glucose (70-99) mg/dl POC Glucose (other) 191 H (70-99) mg/dl Calcium (8.5-10.1) mg/dl Phosphorus 2.8 (2.5-4.9) mg/dl Magnesium 3.0 H (1.8-2.4) mg/dl Total Bilirubin (0.2-1) mg/dl AST (15-37) U/L ALT (12-78) U/L Alkaline Phosphatase (45-117) U/L Total Protein (6.4-8.2) gm/dl Albumin (3.4-5.0) gm/dl Globulin (2.5-4.0) gm/dl Albumin/Globulin Ratio (0.9-2) PG Care Time/CCT Total # of Minutes Spent Total Time Spent with Patient: Total time spent is greater than 50% in coordination of care (as documented) at patient's floor/unit and/or counseling patient: Coding Level of Care Code 27459 Subseq Hosp Care Lvl 1 Diagnoses Pneumonia due to COVID-19 virus U07.1; J12.82 Acute hypoxemic respiratory failure J96.01 Sepsis A41.9 Acute kidney injury N17.9 Elevated troponin R77.8 UTI (urinary tract infection) N39.0 Elevated transaminase level R74.01 Anxiety F41.9 Hypokalemia E87.6 Hypertension I10 Osteoarthritis M19.90 CAD (coronary artery disease), [place] coronary artery I25.10 Hyperlipidemia E78.5 DVT prophylaxis Z29.9
[2020-07-14] MEDS: CISATRACURIUM BESYLATE 100 MG in SODIUM CHLORIDE 0.9% 200 ML IV SCH ×5 (01:42→19:45)
[2020-07-14] MEDS: propofoL 1,000 MG/100 ML VIAL IV SCH ×6 (02:24→13:34)
[2020-07-14 03:38] LABS: iSTAT Art Bld Gas pCO2 Correct 65 mmHg (35-46); iSTAT Art Bld Gas pH Corrected 7.361 (7.35-7.45); iSTAT Arterial Blood Gas HCO3 36 meg/L (19-24); iSTAT Arterial Blood Gas pCO2 63 mmHg (35-46); iSTAT Arterial Blood Gas pH 7.37 (7.35-7.45); iSTAT Arterial Blood Gas pO2 61 mmHg (80-95); iSTAT Arterial Blood Gas pO2 C 64; iSTAT Carbon Dioxide 38 mmol/L (24-31); iSTAT Hematocrit 40 % (42-52); iSTAT Hemoglobin 13.6 g/dl (14.0-18.0); iSTAT Site Art Line; iSTAT Sodium 137 mmol/L (135-144)
[2020-07-14] MEDS: fentaNYL DRIP 1,250 MCG/250 ML BAG IV SCH ×5 (04:14→23:49)
[2020-07-14] MEDS: NOREPINEPHRINE/D5W 8 MG/508 ML BAG IV SCH (05:11)
[2020-07-14 05:27] LABS: Basophils # (auto) 0.01 K/uL (0-0.2); Basophils % (auto) 0.1 %; Hematocrit (blood only) 40.7 % (42-52); Hemoglobin 13.3 g/dL (14.0-18.0); Immature Granulocytes # (auto) 0.09 K/uL (0.00-0.02); Immature Granulocytes % (auto) 0.9 %; Lymphocytes # (auto) 0.94 K/uL (1.2-3.4); Lymphocytes % (auto) 9.2 %; Mean Corpuscular Hemoglobin 31.4 pg (25-34); Mean Corpuscular Hgb Conc 32.7 g/dL (32-36); Mean Corpuscular Volume 96.2 fL (80-100); Mean Platelet Volume 10.2 fL (7.4-10.4); Monocytes # (auto) 0.42 K/uL (0.11-0.59); Monocytes % (auto) 4.1 %; Neutrophils # (auto) 8.78 K/uL (1.4-6.5); Neutrophils % (auto) 85.7 %; Platelet Count 221 K/uL (130-400); RDW Coefficient of Variation 14.1 % (11.5-14.5); RDW Standard Deviation 50.3 fL (36.4-46.3); Red Blood Count 4.23 M/uL (4.7-6.1); White Blood Count 10.24 K/uL (4.8-10.8)
[2020-07-14 06:00] LABS: Albumin Level 1.9 gm/dl (3.4-5.0); BUN Creatinine Ratio 23.4 (10-20); Calcium 7.8 mg/dl (8.5-10.1); Creatinine Clr Calc Pharmacy 87.1 ml/min; Est GFR (African American) 82.8; Est GFR (Non-African American) 71.5; Magnesium 2.9 mg/dl (1.8-2.4)
[2020-07-14 06:03] LABS: Albumin Globulin Ratio 0.4 (0.9-2); Bilirubin,Total 0.5 mg/dl (0.2-1); Globulin 4.5 gm/dl (2.5-4.0); Phosphorus 1.9 mg/dl (2.5-4.9); Total Protein 6.4 gm/dl (6.4-8.2)
[2020-07-14] MEDS: INSULIN ASPART 100 UNITS/ML 3 ML PEN SC SCH ×3 (06:03→17:51)
[2020-07-14] MEDS ORDERED: SODIUM PHOSPHATE 3 MMOL/1 ML INFUSION IV STA (06:08)
[2020-07-14] MEDS: ICU ELECTROLYTE REPLACEMENT PROTOCOL SCH ×2 (06:25→12:48)
[2020-07-14] MEDS ORDERED: POTASSIUM PHOSPHATE 21 MMOL in SODIUM CHLORIDE 0.9% 500 ML IV ONE (06:45)
[2020-07-14] MEDS: PEPTAMEN INTENSE VHP 1.0 CAL 1,000 ML BAG OG SCH (07:16)
[2020-07-14] MEDS: dexAMETHasone 6 MG in SYRINGE 0 ML IV SCH (07:20)
[2020-07-14] MEDS: ACETAMINOPHEN SUSP 325 MG/10.15 ML UDC OG PRN (07:20)
[2020-07-14] MEDS: cefTRIAXone SODIUM 2,000 MG in DEXTROSE 5% 50 ML IV SCH (07:20)
[2020-07-14] MEDS: ATORVASTATIN 40 MG TAB PO SCH (07:21)
[2020-07-14] MEDS: ASPIRIN 81 MG CHEW PO SCH (07:21)
[2020-07-14] MEDS: ENOXAPARIN INJ 40 MG/0.4 ML SYR SQ SCH ×2 (07:21→19:46)
[2020-07-14] MEDS: ARTIFICIAL TEARS OP OINT 3.5 GM TUBE OP PRN (08:00)
--- NOTE | 2020-07-14 11:50 | Critical Care Progress Note ---
Date of Service July 14, 2020 Assessment & Plan (1) Acute hypoxemic respiratory failure: (2) Pneumonia due to COVID-19 virus: Impression: 65-year-old male with morbid obesity and ARDS secondary to COVID-19 pneumonia. He is failed conservative measures with oxygen and BiPAP and intubation mechanical ventilation are recommended. 24 Hour events: Patient had lost some ground from a respiratory standpoint and had to have his PEEP and FiO2 escalated. He was reprone to this morning at 9:30 AM. I was present and available for the procedure. Hemodynamics have remained the same. Urine function remains about the same. Recommendations: 1. Neurologic: We will continue aggressive sedation at this point time. Given his severe ARDS will continue on neuromuscular blockade for at least additional 24 hours to facilitate compliance with ventilator. He uses Ativan in the outpatient setting so we will continue fentanyl and Versed as well as propofol. Triglycerides are high and if they remain high we may need to discontinue propofol and transition to Precedex or higher doses of fentanyl and Versed. 2. Pulmonary: Severe ARDS secondary to COVID-19 pneumonia. Continue ARDSnet ventilatory strategy and trying keep plateau pressures below 35. Current #s 7.37/63/61/36 - Vent AC 32/350/16/0.85 I:E 2:1. Pplat 28. P/F = 87, worse than yesterday. We may consider inhaled epoprostenol as inhaled nitric oxide is not available but we will see how he responds to prone positioning. Continue dexamethasone per protocol. 3. Cardiovascular: History of coronary disease. He hemodynamically stable currently. Will use norepinephrine to maintain mean arterial pressure >65 if needed. History of CARSON, continue ASA. 4. Renal: No current issues. Electrolyte replacement will be initiated. Follow acid-base status. Trend urine output. 5. GI: No current issues. PPI will be initiated. Continue trophic tube fe eding hold on advancing until HD better. 6. ID: E Coli UTI on presentation. Continue rocephin. Await respiratory and blood cultures. Fevers likely related to viral pna. Continue tylenol and e xternal cooling measures. 7. Endocrine: Glycemic control per protocol. 8. Heme-onc: No current issues. DVT prophylaxis with Lovenox. Patient's overall prognosis remains guarded at this point time. The patient is critically ill with significant possibility of clinical deterioration and . A total of 45 minutes critical care time was spent in evaluation management stabilization of this patient including discussion with his son on the phone. Admission and Anticipated Discharge Date Admission Date: July 08, 2020 Subjective Intubated sedated and paralyzed, now proned Review of Systems Review of Systems: Unobtainable due to endotracheal tube Physical Exam Constitutional: + obese Intubated sedated paralyzed in prone Neck: trachea midline, no thyromegaly Respiratory: normal respiratory effort, lungs clear to auscultation Cardiovascular: RRR, no murmur, no edema Gastrointestinal (Abdomen): normal bowel sounds, soft, nontender, no hepatosplenomegaly Musculoskeletal: Extremities: extremities normal to inspection Skin: no rashes, warm and dry Neurologic: Nonfocal exam Lymphatic: no cervical lymphadenopathy Results & Data Results & Data ([place]) Vital Signs (Past 12 Hours) Vital Signs Temp Pulse Resp BP Pulse Ox 07/14/20 10:09 37.8 C H 69 112/63 93 07/14/20 10:00 37.9 C H 63 92 07/14/20 09:09 38.0 C H 68 117/65 90 07/14/20 08:11 38.0 C H 69 88 L 07/14/20 08:10 38.0 C H 69 111/61 88 L 07/14/20 08:00 38.0 C H 70 89 L 07/14/20 07:35 71 32 H 90 07/14/20 07:10 38.0 C H 71 131/69 90 07/14/20 06:00 37.9 C H 70 89 L 07/14/20 05:30 37.8 C H 71 89 L 07/14/20 05:10 37.8 C H 70 131/68 90 07/14/20 05:00 37.8 C H 70 90 07/14/20 04:30 37.8 C H 71 90 07/14/20 04:09 37.7 C H 70 136/70 90 07/14/20 04:00 37.7 C H 70 148/71 H 91 07/14/20 03:48 70 32 H 90 07/14/20 03:30 37.7 C H 70 90 07/14/20 03:09 37.7 C H 70 129/71 90 07/14/20 03:00 37.7 C H 70 90 07/14/20 02:30 37.7 C H 71 90 07/14/20 02:09 37.7 C H 70 135/69 90 07/14/20 02:00 37.7 C H 70 90 07/14/20 01:30 37.6 C H 69 90 07/14/20 01:09 37.6 C H 70 134/71 91 07/14/20 01:00 37.6 C H 71 91 07/14/20 00:30 37.6 C H 72 91 07/14/20 00:09 37.6 C H 68 133/67 91 07/14/20 00:00 37.6 C H 69 155/72 H 91 Laboratory Results 07/14/20 05:12 07/14/20 05:12 Blood gas 7.37/63/61/36: Assist-control rate 32 tidal volume 380 I:E 2:1, PEEP 14, FiO2 0.7 Triglycerides 290 Diagnostic Findings no new films Coding Level of Care Code Critical Care 1st 30-74 mins Diagnoses Acute hypoxemic respiratory failure J96.01 Pneumonia due to COVID-19 virus U07.1; J12.82 Time Spent (min) 45
[2020-07-14] MEDS: PANTOprazole 40 MG in SYRINGE 0 ML IV SCH (12:24)
[2020-07-14] MEDS: MIDAZOLAM HCL 125 MG/250 ML BAG IV SCH ×2 (13:35→18:07)
--- NOTE | 2020-07-14 15:18 | XRay Report ---
SINGLE VIEW CHEST CLINICAL HISTORY: Respiratory failure. FINDINGS: 2 AP, portable, prone chest radiographs are compared to study dated 07/13/2020. The examinat ion is degraded by portable technique and patient rotation. An endotracheal tube, an enteric tube, and a left subclavian central venous catheter are unchanged in position. The heart is enlarged noting atherosclerotic calcification of the thoracic aorta. Diffuse airspace consolidation throughout both lungs has progressed from yesterday. Costophrenic granulomas are similar to previous. Small pleural e ffusions are suspected. No pneumothorax is seen. The skeletal structures are osteopenic. The bony tho rax is grossly intact. IMPRESSION: 1. Stable lines and tubes. 2. Diffuse airspace consolidation throughout both lungs is increasingly confluent as compared to yest erday. This could represent pulmonary edema, ARDS, and/or multiple pneumonia. Clinical correlation wi ll be required. 3. Suspect small pleural effusions. ACT 112: Negative or not required by law. Electronically signed by: Efe Walker M.D. 07/14/2020 3:17 PM
--- NOTE | 2020-07-14 17:36 | Hospitalist Progress Note ---
Date of Service July 14, 2020 Assessment & Plan (1) Pneumonia due to COVID-19 virus: Pneumonia due to COVID-19 He had a positive test 7 days [employer] at [employer] with no previous treatment. Had difficulty with tolerating Vapotherm high flow nasal cannula and was not able to maintain pulse ox greater than 88% on max settings of high flow along with 15 L nonrebreather mask over his mouth Mentation began to worsen and he became hypercapnic as well on the morning of 07/11, also tachypneic Placed on trial of BiPAP and failed Chest x-ray and overall picture consistent with ARDS Transferred to ICU and was intubated and is mechanically ventilated as of the a.m. of 07/11 Remains intubated,sedated, paralyzed. FiO2 requirement down to 70%. 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 shared services manager management -Considering epoprostenol as an inhaled vasodilator as inhaled nitric oxide is not available here -Continue dexamethasone 6 mg IV once daily x10-day course -Continue albuterol -He is outside the range for giving remdesivir or convalescent plasma as he is over 1 week out from diagnosis -Initially was given IV azithromycin but procalcitonin negative and no leukocytosis-this was discontinued -started having fevers on 07/11 and finally defervesced on 07/14 -sputum culture with moderate normal petra -BCxs from admission NGTD, repeat BCxs 07/13 no growth to date (2) Acute hypoxemic respiratory failure: As noted above Improving now with prone positioning, FiO2 down to 60 while proned ABG showed 7.33/57/70 on 100% FiO2 consistent with hypoxemia as well as hypercapnia shortly after intubation Mechanical ventilation as above (3) Sepsis: Sepsis in setting of COVID19 pneumonia with septic shock Now on low-dose levophed for hypotension but can likely be weaned off today With fevers developing on 07/10 possibly due to viral PNA, now improving Treatment as above -continue ceftriaxone for UTI for now -follow repeat BCxs-no growth to date Sputum culture moderate normal petra (4) Acute kidney injury: Creatinine 2.38 upon admission, with recent 1.36 [employer] Has improved to 1.07 Initially given IV fluids, but later required furosemide 40 mg IV due to worseni ng hypoxia Continue to hold telmisartan/HCTZ and diclofenac Received another dose of IV Lasix 07/11 Follow CMP Follow urine output Placed Alicia catheter -Is +7 L this admission, consider giving IV Lasix but will defer to shared services manager (5) Elevated troponin: likely secondary to myocardial demand ischemia Was minimally elevated at 0.035/0.019/0.02 ECG without ischemic changes (6) UTI (urinary tract infection): Urinalysis abnormal He denies symptoms but has had UTIs in the past Urine culture growing E. coli resistant to ampicillin, Unasyn, and Bactrim, but sensitive to ceftriaxone -Continue ceftriaxone 2 g IV every 24 hours x7 day course-last day of treatment will be 07/16 (7) Elevated transaminase level: AST and ALT were up to 99 and 74, respectively, and now trending down towards normal This is secondary to Covid-19 pneumonia Follow CMP (8) Anxiety: On lorazepam 1 mg 3 times daily at home Now receiving Versed as needed while ventilated (9) Hypokalemia: replaced and now resolved Follow BMP, magnesium (10) Hypertension: Blood pressures were low, requiring pressor but can likely be weaned off as blood pressure is now improved Holding home telmisartan/HCT for acute kidney injury Metoprolol on hold as well Norepinephrine as needed (11) Osteoarthritis: Hold diclofenac due to acute kidney injury (12) CAD (coronary artery disease), [place] coronary artery: With a history of coronary stent Troponin minimally elevated and stable x2 most likely secondary to myocardial demand ischemia from profound hypoxia -continue aspirin 81 mg daily given presence of stent -continue statin -holding metoprolol succinate 50 mg daily for hypotension (13) Hyperlipidemia: Continue atorvastatin 80 mg every morning (14) DVT prophylaxis: Lovenox 40 mg SQ every 12 FEN-no IV fluids other than medications, trophic tube feeds, no advancement of feeds due to need for vasopressors [id number], central venous catheter, Alicia catheter, peripheral IV Disposition-continued stay in ICU, prognosis remains guarded Full code Admission and Anticipated Discharge Date Admission Date: July 08, 2020 Subjective Patient intubated and sedated, now proned as oxygenation was worsening. Fevers have finally broken today. Remains on low-dose of norepinephrine. Discussed care with the nurse. He is making urine but is 7 L positive on I's and O's Review of Systems Review of Systems: Unobtainable due to endotracheal tube and Unobtainable due to reduced consciousness Physical Exam Constitutional: WD/WN, vitals as above + obese and + mechanically ventilated; no acute distress Results & Data Results & Data ([facility]) Vital Signs (Past 12 Hours) Vital Signs Temp Pulse Resp BP Pulse Ox 07/14/20 16:10 37.4 C 66 115/66 91 07/14/20 16:00 37.5 C 67 91 07/14/20 15:11 37.5 C 66 92 07/14/20 15:10 37.5 C 67 128/68 92 07/14/20 14:10 37.6 C H 66 122/68 93 07/14/20 14:00 37.6 C H 67 92 07/14/20 13:40 67 32 H 93 07/14/20 13:10 37.7 C H 68 120/66 93 07/14/20 12:11 37.7 C H 68 92 07/14/20 12:10 37.8 C H 68 116/65 92 07/14/20 12:00 37.8 C H 69 92 07/14/20 11:30 70 33 H 96 07/14/20 11:09 37.8 C H 70 114/65 95 07/14/20 10:09 37.8 C H 69 112/63 93 07/14/20 10:00 37.9 C H 63 92 07/14/20 09:09 38.0 C H 68 117/65 90 07/14/20 08:11 38.0 C H 69 88 L 07/14/20 08:10 38.0 C H 69 111/61 88 L 07/14/20 08:00 38.0 C H 70 89 L 07/14/20 07:35 71 32 H 90 07/14/20 07:10 38.0 C H 71 131/69 90 07/14/20 06:00 37.9 C H 70 89 L Laboratory Results 07/14/20 07/14/20 07/14/20 Range/Units 17:44 10:10 05:12 WBC (4.8-10.8) K/uL RBC (4.7-6.1) M/uL Hgb (14.0-18.0) g/dL POC Hgb (14.0-18.0) g/dl Hct (42-52) % POC Hct (42-52) % MCV (80-100) fL MCH (25-34) pg MCHC (32-36) g/dL RDW Std Deviation (36.4-46.3) fL RDW Coeff of Fernanda (11.5-14.5) % Plt Count (130-400) K/uL MPV (7.4-10.4) fL Immature Gran % (Auto) % Neut % (Auto) % Lymph % (Auto) % [place] % (Auto) % Eos % (Auto) % Baso % (Auto) % Neut # (Auto) (1.4-6.5) K/uL Lymph # (Auto) (1.2-3.4) K/uL [place] # (Auto) (0.11-0.59) K/uL Eos # (Auto) (0-0.5) K/uL Baso # (Auto) (0-0.2) K/uL Immature Gran # (Auto) (0.00-0.02) K/uL Sample Site POC pH (7.35-7.45) POC pCO2 (35-46) mmHg POC pO2 (80-95) mmHg POC HCO3 (19-24) nakul/L POC Total CO2 (24-31) mmol/L POC Base Excess (-9-1.8) nakul/L ABG pH (Temp Correct) (7.35-7.45) ABG pCO2 (Temp Corrct (35-46) mmHg POC ABG pO2 at Pt Temp POC ABG O2 Sat (90-95) % Tavo Test O2 Delivery Device POC O2 Rate Minute Ventilation Tidal Volume PEEP POC Sodium (135-144) mmol/L Sodium 139 (136-145) mmol/L POC Potassium (3.3-5.0) mmol/L Potassium 4.0 (3.5-5.1) mmol/L Chloride 102 (98-107) mmol/L Carbon Dioxide 36 H (21-32) mmol/L Anion Gap 1.0 L (3-11) BUN 25 H (7-18) mg/dl Creatinine 1.07 (0.6-1.4) mg/dl Est Cr Clr Drug Dosing 87.1 ml/min Est GFR ( Amer) 82.8 Est GFR (Non-Af Amer) 71.5 BUN/Creatinine Ratio 23.4 H (10-20) Glucose 145 H (70-99) mg/dl POC Glucose 160 H 144 H (70-99) mg/dl Calcium 7.8 L (8.5-10.1) mg/dl Phosphorus 1.9 L (2.5-4.9) mg/dl Magnesium 2.9 H (1.8-2.4) mg/dl Total Bilirubin 0.5 (0.2-1) mg/dl AST 58 H (15-37) U/L ALT 49 (12-78) U/L Alkaline Phosphatase 34 L (45-117) U/L Total Protein 6.4 (6.4-8.2) gm/dl Albumin 1.9 L (3.4-5.0) gm/dl Globulin 4.5 H (2.5-4.0) gm/dl Albumin/Globulin Ratio 0.4 L (0.9-2) Triglycerides 290 H (0-150) mg/dl 07/14/20 07/14/20 07/13/20 Range/Units 05:12 03:24 23:17 WBC 10.24 (4.8-10.8) K/uL RBC 4.23 L (4.7-6.1) M/uL Hgb 13.3 L (14.0-18.0) g/dL POC Hgb 13.6 L (14.0-18.0) g/dl Hct 40.7 L (42-52) % POC Hct 40 L (42-52) % MCV 96.2 (80-100) fL MCH 31.4 (25-34) pg MCHC 32.7 (32-36) g/dL RDW Std Deviation 50.3 H (36.4-46.3) fL RDW Coeff of Fernanda 14.1 (11.5-14.5) % Plt Count 221 (130-400) K/uL MPV 10.2 (7.4-10.4) fL Immature Gran % (Auto) 0.9 % Neut % (Auto) 85.7 % Lymph % (Auto) 9.2 % [place] % (Auto) 4.1 % Eos % (Auto) 0.0 % Baso % (Auto) 0.1 % Neut # (Auto) 8.78 H (1.4-6.5) K/uL Lymph # (Auto) 0.94 L (1.2-3.4) K/uL [place] # (Auto) 0.42 (0.11-0.59) K/uL Eos # (Auto) 0.00 (0-0.5) K/uL Baso # (Auto) 0.01 (0-0.2) K/uL Immature Gran # (Auto) 0.09 H (0.00-0.02) K/uL Sample Site Art Line POC pH 7.37 (7.35-7.45) POC pCO2 63 H (35-46) mmHg POC pO2 61 L (80-95) mmHg POC HCO3 36 H (19-24) nakul/L POC Total CO2 38 H (24-31) mmol/L POC Base Excess 11.0 H (-9-1.8) nakul/L ABG pH (Temp Correct) 7.361 (7.35-7.45) ABG pCO2 (Temp Corrct 65 H (35-46) mmHg POC ABG pO2 at Pt Temp 64 POC ABG O2 Sat 89.0 L (90-95) % Tavo Test NA O2 Delivery Device Ventilator POC O2 Rate 32 Minute Ventilation 11 Tidal Volume 320 PEEP 14 POC Sodium 137 (135-144) mmol/L Sodium (136-145) mmol/L POC Potassium 4.0 (3.3-5.0) mmol/L Potassium (3.5-5.1) mmol/L Chloride (98-107) mmol/L Carbon Dioxide (21-32) mmol/L Anion Gap (3-11) BUN (7-18) mg/dl Creatinine (0.6-1.4) mg/dl Est Cr Clr Drug Dosing ml/min Est GFR ( Amer) Est GFR (Non-Af Amer) BUN/Creatinine Ratio (10-20) Glucose (70-99) mg/dl POC Glucose 169 H (70-99) mg/dl Calcium (8.5-10.1) mg/dl Phosphorus (2.5-4.9) mg/dl Magnesium (1.8-2.4) mg/dl Total Bilirubin (0.2-1) mg/dl AST (15-37) U/L ALT (12-78) U/L Alkaline Phosphatase (45-117) U/L Total Protein (6.4-8.2) gm/dl Albumin (3.4-5.0) gm/dl Globulin (2.5-4.0) gm/dl Albumin/Globulin Ratio (0.9-2) Triglycerides (0-150) mg/dl PG Care Time/CCT Total # of Minutes Spent Total Time Spent with Patient: Total time spent is greater than 50% in coor dination of care (as documented) at patient's floor/unit and/or counseling patient: Coding Level of Care Code 38792 Subseq Hosp Care Lvl 1 Diagnoses Pneumonia due to COVID-19 virus U07.1; J12.82 Acute hypoxemic respiratory failure J96.01 Sepsis A41.9 Acute kidney injury N17.9 Elevated troponin R77.8 UTI (urinary tract infection) N39.0 Elevated transaminase level R74.01 Anxiety F41.9 Hypokalemia E87.6 Hypertension I10 Osteoarthritis M19.90 CAD (coronary artery disease), [place] coronary artery I25.10 Hyperlipidemia E78.5 DVT prophylaxis Z29.9
[2020-07-15] MEDS: CISATRACURIUM BESYLATE 100 MG in SODIUM CHLORIDE 0.9% 200 ML IV SCH ×9 (01:27→20:34)
[2020-07-15] MEDS: MIDAZOLAM HCL 125 MG/250 ML BAG IV SCH ×4 (01:27→16:52)
[2020-07-15] MEDS: fentaNYL DRIP 1,250 MCG/250 ML BAG IV SCH ×5 (05:26→20:01)
[2020-07-15 05:41] LABS: Basophils # (auto) 0.02 K/uL (0-0.2); Basophils % (auto) 0.2 %; Eosinophils # (auto) 0.01 K/uL (0-0.5); Eosinophils % (auto) 0.1 %; Hemoglobin 12.5 g/dL (14.0-18.0); Immature Granulocytes % (auto) 2.1 %; Lymphocytes # (auto) 0.51 K/uL (1.2-3.4); Lymphocytes % (auto) 5.4 %; Mean Corpuscular Hemoglobin 30.9 pg (25-34); Mean Corpuscular Hgb Conc 32.1 g/dL (32-36); Mean Corpuscular Volume 96.3 fL (80-100); Mean Platelet Volume 10.1 fL (7.4-10.4); Monocytes # (auto) 0.98 K/uL (0.11-0.59); Monocytes % (auto) 10.3 %; Neutrophils % (auto) 81.9 %; Platelet Count 219 K/uL (130-400); RDW Standard Deviation 49.9 fL (36.4-46.3); Red Blood Count 4.05 M/uL (4.7-6.1); White Blood Count 9.52 K/uL (4.8-10.8)
[2020-07-15 05:59] LABS: Albumin Level 1.8 gm/dl (3.4-5.0); BUN Creatinine Ratio 27.8 (10-20); Calcium 7.9 mg/dl (8.5-10.1); Creatinine Clr Calc Pharmacy 103.8 ml/min; Est GFR (African American) 100.7; Est GFR (Non-African American) 86.9; Magnesium 2.7 mg/dl (1.8-2.4); Potassium 4.5 mmol/L (3.5-5.1)
[2020-07-15 06:02] LABS: Albumin Globulin Ratio 0.4 (0.9-2); Bilirubin,Total 0.4 mg/dl (0.2-1); Globulin 4.4 gm/dl (2.5-4.0); Phosphorus 2.2 mg/dl (2.5-4.9); Total Protein 6.2 gm/dl (6.4-8.2)
[2020-07-15] MEDS ORDERED: SODIUM PHOSPHATE 3 MMOL/1 ML 5 ML VIAL IV ONE (06:27)
[2020-07-15] MEDS: INSULIN ASPART 100 UNITS/ML 3 ML PEN SC SCH ×4 (06:30→16:53)
[2020-07-15] MEDS: ICU ELECTROLYTE REPLACEMENT PROTOCOL SCH ×2 (06:32→15:02)
[2020-07-15] MEDS ORDERED: SODIUM PHOSPHATE 15 MMOL in SODIUM CHLORIDE 0.9% 250 ML IV ONE (06:45)
[2020-07-15] MEDS: ENOXAPARIN INJ 40 MG/0.4 ML SYR SQ SCH ×2 (07:13→20:01)
[2020-07-15] MEDS: NOREPINEPHRINE/D5W 8 MG/508 ML BAG IV SCH ×2 (07:13→16:54)
[2020-07-15] MEDS: ASPIRIN 81 MG CHEW PO SCH (07:13)
[2020-07-15] MEDS: ATORVASTATIN 40 MG TAB PO SCH (07:13)
[2020-07-15] MEDS: dexAMETHasone 6 MG in SYRINGE 0 ML IV SCH (07:16)
[2020-07-15] MEDS: cefTRIAXone SODIUM 2,000 MG in DEXTROSE 5% 50 ML IV SCH (07:16)
[2020-07-15] MEDS: ACETAMINOPHEN SUSP 325 MG/10.15 ML UDC OG PRN (07:16)
--- NOTE | 2020-07-15 08:10 | XRay Report ---
XR chest 1V portable CLINICAL HISTORY: Respiratory failure COMPARISON STUDY: 07/14/2020 FINDINGS: The heart is enlarged. There is mild improvement in the extensive bilateral pulmonary airsp destiny opacities. There is a left-sided central venous catheter unchanged in position. An enteric tube p asses the stomach. There is an endotracheal tube 6 cm above the laverne.[Small pleural effusions are s uspected IMPRESSION: 1. Slight interval improvement in the extensive bilateral pulmonary airspace opacities ACT 112: Negative or not required by law. Electronically signed by: Jimmie Manuel M.D. 07/15/2020 8:09 AM
[2020-07-15] MEDS: PEPTAMEN INTENSE VHP 1.0 CAL 1,000 ML BAG OG SCH (08:41)
[2020-07-15] MEDS: PANTOprazole 40 MG in SYRINGE 0 ML IV SCH (12:00)
--- NOTE | 2020-07-15 14:28 | Critical Care Progress Note ---
Date of Service July 15, 2020 Assessment & Plan (1) Acute hypoxemic respiratory failure: (2) Pneumonia due to COVID-19 virus: Impression: 65-year-old male with morbid obesity and ARDS secondary to COVID-19 pneumonia. He is failed conservative measures with oxygen and BiPAP and intubation mechanical ventilation were instituted 24 Hour events: Patient remained prone until about 5:00 this morning and was flipped back. He again had significant improvement in his oxygenation. He has been weaned off of pressors. Propofol has been discontinued due to hypertriglyceridemia. He is being sedated with fentanyl and Versed. He remains paralyzed. Recommendations: 1. Neurologic: We will continue aggressive sedation at this point time. Given his severe ARDS will continue on neuromuscular blockade for at least additional 24 hours to facilitate compliance with ventilator. He uses Ativan in the outpatient setting so we will continue fentanyl and Versed as well as propofol. Triglycerides are high and if they remain high we may need to discontinue propofol and transition to Precedex or higher doses of fentanyl and Versed. 2. Pulmonary: Severe ARDS secondary to COVID-19 pneumonia. Day #5 mechanical ventilation. Continue ARDSnet ventilatory strategy and trying keep plateau pressures below 35. Current #s 7.37/63/61/36 - Vent PRVC 32/350/14/0.6 I:E 2:1. Pplat 23. Compliance 45. Peak pressures 28. P/F = 125, improved with prone positioning compared to yesterday. Will reprone him again today and target 20 to 22 hours of prone positioning. Holding inhaled epoprostenol as a salvage therapy if he should fail these interventions. He appears to be responding favorably to prone positioning. Continue dexamethasone per protocol. 3. Cardiovascular: History of coronary disease. He hemodynamically stable currently. Now off pressors. History of CARSON, continue ASA. 4. Renal: No current issues. Electrolyte replacement will be initiated. Follow acid-base status. Trend urine output. Start gentle diuresis given hemodynamic stability 5. GI: No current issues. PPI will be initiated. Currently tolerating trophic feeds. Can advance as tolerated now that he is off pressors. 6. ID: E Coli UTI on presentation. Continue rocephin. Respiratory and blood cultures negative. Suspect fevers were related to this viral pneumonia. They appear to have resolved. Continue to follow 7. Endocrine: Glycemic control per protocol. 8. Heme-onc: No current issues. DVT prophylaxis with Lovenox. Patient's overall prognosis remains guarded at this point time. The patient is critically ill with significant possibility of clinical deterioration and . A total of 45 minutes critical care time was spent in evaluation management stabilization of this patient including discussion with uli milian on the phone. Admission and Anticipated Discharge Date Admission Date: July 08, 2020 Subjective Intubated sedated and paralyzed Review of Systems Review of Systems: Unobtainable due to endotracheal tube Physical Exam Constitutional: + obese and + mechanically ventilated Neck: trachea midline, no thyromegaly Respiratory: normal respiratory effort, lungs clear to auscultation Cardiovascular: RRR, no murmur, no edema Gastrointestinal (Abdomen): normal bowel sounds, soft, nontender, no hepat osplenomegaly Musculoskeletal: Extremities: extremities normal to inspection Skin: no rashes, warm and dry Lymphatic: no cervical lymphadenopathy Results & Data Results & Data ([facility]) Vital Signs (Past 12 Hours) Vital Signs Temp Pulse Resp BP Pulse Ox 07/15/20 12:10 37.0 C 48 L 112/62 91 07/15/20 12:00 37.0 C 48 L 91 07/15/20 11:11 36.8 C 47 L 90 07/15/20 11:10 36.8 C 47 L 108/59 L 90 07/15/20 10:10 36.7 C 47 L 111/63 93 07/15/20 10:00 36.7 C 47 L 92 07/15/20 09:10 36.5 C 45 L 114/64 93 07/15/20 08:11 36.5 C 48 L 92 07/15/20 08:10 36.5 C 46 L 126/68 93 07/15/20 08:00 36.5 C 47 L 96 07/15/20 07:50 49 L 32 H 95 07/15/20 07:10 36.5 C 48 L 129/74 92 07/15/20 07:00 36.5 C 49 L 92 07/15/20 04:00 140/67 07/15/20 03:33 51 L 32 H 90 Laboratory Results 07/15/20 04:58 07/15/20 04:58 Diagnostic Findings Chest x-ray from today was independently reviewed. Tubes and lines are in good position. There are diffuse bilateral opacities. Coding Level of Care Code Critical Care 1st 30-74 mins Diagnoses Acute hypoxemic respiratory failure J96.01 Pneumonia due to COVID-19 virus U07.1; J12.82
[2020-07-15] MEDS: FUROSEMIDE 20 MG in SYRINGE 0 ML IV SCH (15:29)
[2020-07-15 15:34] LABS: iSTAT Arterial Blood Gas HCO3 35 meg/L (19-24); iSTAT Arterial Blood Gas pCO2 59 mmHg (35-46); iSTAT Arterial Blood Gas pH 7.38 (7.35-7.45); iSTAT Arterial Blood Gas pO2 69 mmHg (80-95); iSTAT Carbon Dioxide 36 mmol/L (24-31); iSTAT Site Art Line
--- NOTE | 2020-07-15 20:23 | Hospitalist Progress Note ---
Date of Service July 15, 2020 Assessment & Plan (1) Pneumonia due to COVID-19 virus: Pneumonia due to COVID-19 He had a positive test 7 days [employer] at [employer] with no previous treatment. Had difficulty with tolerating Vapotherm high flow nasal cannula and was not able to maintain pulse ox greater than 88% on max settings of high flow along with 15 L nonrebreather mask over his mouth Mentation began to worsen and he became hypercapnic as well on the morning of 07/11, also tachypneic Placed on trial of BiPAP and failed Chest x-ray and overall picture consistent with ARDS Transferred to ICU and was intubated and is mechanically ventilated as of the a.m. of 07/11 Remains intubated,sedated, paralyzed. FiO2 requirement down to 60%. 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 secondary school teacher management -Considering epoprostenol as salvage therapy as an inhaled vasodilator as inhaled nitric oxide is not available here -Continue dexamethasone 6 mg IV once daily x10-day course -Continue albuterol -He is outside the range for giving remdesivir or convalescent plasma as he is over 1 week out from diagnosis -Initially was given IV azithromycin but procalcitonin negative and no leukocytosis-this was discontinued -started having fevers on 07/11 and finally defervesced on 07/14 -sputum culture with moderate normal petra -BCxs from admission NGTD, repeat BCxs 07/13 no growth to date (2) Acute hypoxemic respiratory failure: As noted above Improving now with prone positioning, FiO2 down to 60 while proned ABG showed 7.33/57/70 on 100% FiO2 consistent with hypoxemia as well as hypercapnia shortly after intubation Mechanical ventilation as above (3) Sepsis: Sepsis in setting of COVID19 pneumonia with septic shock Now weaned off levophed on 07/15 With fevers developing on 07/10 possibly due to viral PNA, now resolved since 07/13 Treatment as above -continue ceftriaxone for UTI x7-day course -follow repeat BCxs-no growth to date Sputum culture moderate normal petra (4) Acute kidney injury: Creatinine 2.38 upon admission, with recent 1.36 [employer] Has improved to 0.9 Initially given IV fluids, but later required furosemide 40 mg IV due to worsening hypoxia Continue to hold telmisartan/HCTZ and diclofenac Received another dose of IV Lasix 07/11 Follow CMP Follow urine output Placed Alicia catheter -Is +9 L this admission, secondary school teacher now started IV Lasix daily on 07/15 now that weaned off Levophed (5) Elevated troponin: likely secondary to myocardial demand ischemia Was minimally elevated at 0.035/0.019/0.02 ECG without ischemic changes (6) UTI (urinary tract infection): Urinalysis abnormal He denies symptoms but has had UTIs in the past Urine culture growing E. coli resistant to ampicillin, Unasyn, and Bactrim, but sensitive to ceftriaxone -Continue ceftriaxone 2 g IV every 24 hours x7 day course-last day of treatment will be 07/16 (7) Elevated transaminase level: AST and ALT were up to 99 and 74, respectively, and now trending down towards normal This is secondary to Covid-19 pneumonia Follow CMP (8) Anxiety: On lorazepam 1 mg 3 times daily at home Now receiving Versed as needed while ventilated (9) Hypokalemia: replaced and now resolved Follow BMP, magnesium (10) Hypertension: Blood pressures were low, requiring pressor but now weaned off Levophed Holding home telmisartan/HCT for acute kidney injury Metoprolol on hold as well (11) Osteoarthritis: Hold diclofenac due to acute kidney injury (12) CAD (coronary artery disease), [place] coronary artery: With a history of coronary stent Troponin minimally elevated and stable x2 most likely secondary to myocardial demand ischemia from profound hypoxia -continue aspirin 81 mg daily given presence of stent -continue statin -holding metoprolol succinate 50 mg daily for hypotension (13) Hyperlipidemia: Continue atorvastatin 80 mg every morning (14) DVT prophylaxis: Lovenox 40 mg SQ every 12 FEN-no IV fluids other than medications, on tube feeds at 10 mL's per hour when not proned [id number], central venous catheter, Alicia catheter GI prophylaxis-IV Protonix Disposition-continued stay in ICU, prognosis remains guarded Full code Admission and Anticipated Discharge Date Admission Date: July 08, 2020 Subjective Patient remains intubated and sedated, is prone when I saw him. He is weaned of f pressors. Propofol was discontinued due to hypertriglyceridemia. Paralytics still being used. Review of Systems Review of Systems: Unobtainable due to endotracheal tube and Unobtainable due to reduced consciousness Physical Exam Constitutional: WD/WN, vitals as above + obese and + mechanically ventilated; no acute distress Results & Data Results & Data ([facility]) Vital Signs (Past 12 Hours) Vital Signs Temp Pulse Resp BP Pulse Ox 07/15/20 16:10 37.3 C 55 L 137/77 91 07/15/20 16:00 37.3 C 67 91 07/15/20 15:30 58 L 32 H 92 07/15/20 15:10 37.5 C 50 L 117/61 90 07/15/20 14:11 37.3 C 50 L 91 07/15/20 14:10 37.3 C 50 L 116/61 91 07/15/20 14:00 37.3 C 52 L 91 07/15/20 13:10 37.2 C 48 L 111/59 L 90 07/15/20 12:11 37.0 C 48 L 91 07/15/20 12:10 37.0 C 48 L 112/62 91 07/15/20 12:00 37.0 C 48 L 91 07/15/20 11:11 36.8 C 47 L 90 07/15/20 11:10 36.8 C 47 L 32 H 108/59 L 90 07/15/20 10:10 36.7 C 47 L 111/63 93 07/15/20 10:00 36.7 C 47 L 92 07/15/20 09:10 36.5 C 45 L 114/64 93 Laboratory Results 07/15/20 04:58 07/15/20 04:58 Blood cultures-no growth to date Sputum culture-moderate normal petra PG Care Time/CCT Total # of Minutes Spent Total Time Spent with Patient: Total time spent is greater than 50% in coordination of care (as documented) at patient's floor/unit and/or counseling patient: Coding Level of Care Code 62662 Subseq Hosp Care Lvl 1 Diagnoses Pneumonia due to COVID-19 virus U07.1; J12.82 Acute hypoxemic respiratory failure J96.01 Sepsis A41.9 Acute kidney injury N17.9 Elevated troponin R77.8 UTI (urinary tract infection) N39.0 Elevated transaminase level R74.01 Anxiety F41.9 Hypokalemia E87.6 Hypertension I10 Osteoarthritis M19.90 CAD (coronary artery disease), [place] coronary artery I25.10 Hyperlipidemia E78.5 DVT prophylaxis Z29.9
[2020-07-16] MEDS: INSULIN ASPART 100 UNITS/ML 3 ML PEN SC SCH ×4 (00:55→17:49)
[2020-07-16] MEDS: CISATRACURIUM BESYLATE 100 MG in SODIUM CHLORIDE 0.9% 200 ML IV SCH ×3 (01:10→18:59)
[2020-07-16] MEDS: MIDAZOLAM HCL 125 MG/250 ML BAG IV SCH ×2 (02:30→19:57)
[2020-07-16] MEDS: fentaNYL DRIP 1,250 MCG/250 ML BAG IV SCH ×3 (02:30→15:54)
[2020-07-16 04:34] LABS: iSTAT Arterial Blood Gas HCO3 35 meg/L (19-24); iSTAT Arterial Blood Gas pCO2 64 mmHg (35-46); iSTAT Arterial Blood Gas pH 7.34 (7.35-7.45); iSTAT Arterial Blood Gas pO2 85 mmHg (80-95); iSTAT Carbon Dioxide 36 mmol/L (24-31); iSTAT Site Art Line
[2020-07-16 05:07] LABS: Basophils # (auto) 0.02 K/uL (0-0.2); Basophils % (auto) 0.2 %; Eosinophils # (auto) 0.01 K/uL (0-0.5); Eosinophils % (auto) 0.1 %; Hematocrit (blood only) 39.1 % (42-52); Hemoglobin 12.6 g/dL (14.0-18.0); Immature Granulocytes # (auto) 0.46 K/uL (0.00-0.02); Immature Granulocytes % (auto) 3.8 %; Lymphocytes # (auto) 1.11 K/uL (1.2-3.4); Lymphocytes % (auto) 9.2 %; Mean Corpuscular Hgb Conc 32.2 g/dL (32-36); Mean Corpuscular Volume 96.1 fL (80-100); Monocytes # (auto) 0.71 K/uL (0.11-0.59); Monocytes % (auto) 5.9 %; Neutrophils # (auto) 9.74 K/uL (1.4-6.5); Neutrophils % (auto) 80.8 %; Platelet Count 201 K/uL (130-400); RDW Coefficient of Variation 13.7 % (11.5-14.5); RDW Standard Deviation 48.8 fL (36.4-46.3); Red Blood Count 4.07 M/uL (4.7-6.1); White Blood Count 12.05 K/uL (4.8-10.8)
[2020-07-16 05:21] LABS: Albumin Level 1.8 gm/dl (3.4-5.0); BUN Creatinine Ratio 37.6 (10-20); Calcium 7.9 mg/dl (8.5-10.1); Creatinine Clr Calc Pharmacy 99.5 ml/min; Est GFR (African American) 95.6; Est GFR (Non-African American) 82.5; Magnesium 2.4 mg/dl (1.8-2.4); Potassium 4.3 mmol/L (3.5-5.1)
[2020-07-16 05:30] LABS: Albumin Globulin Ratio 0.4 (0.9-2); Bilirubin,Total 0.4 mg/dl (0.2-1); Globulin 4.1 gm/dl (2.5-4.0); Phosphorus 2.9 mg/dl (2.5-4.9); Total Protein 5.9 gm/dl (6.4-8.2)
[2020-07-16] MEDS: ICU ELECTROLYTE REPLACEMENT PROTOCOL SCH ×2 (06:07→17:49)
[2020-07-16] MEDS: FUROSEMIDE 20 MG in SYRINGE 0 ML IV SCH (08:04)
[2020-07-16] MEDS: dexAMETHasone 6 MG in SYRINGE 0 ML IV SCH (08:05)
[2020-07-16] MEDS: ASPIRIN 81 MG CHEW PO SCH (08:05)
[2020-07-16] MEDS: ENOXAPARIN INJ 40 MG/0.4 ML SYR SQ SCH ×2 (08:05→19:58)
[2020-07-16] MEDS: ATORVASTATIN 40 MG TAB PO SCH (08:05)
[2020-07-16] MEDS: cefTRIAXone SODIUM 2,000 MG in DEXTROSE 5% 50 ML IV SCH (08:06)
--- NOTE | 2020-07-16 09:18 | XRay Report ---
XR chest 1V portable HISTORY: Respiratory failure. COMPARISON: Chest 07/15/2020. FINDINGS: Endotracheal tube terminates 6.9 cm and the laverne. Nasogastric tube terminates below the d iaphragm. The tip is not included on this study. Left subclavian central venous catheter terminates a t the proximal SVC. This is also unchanged. No pneumothorax. Near diffuse bilateral airspace opacitie s are again noted. This has slightly progressed on the left. Calcified granuloma within the left lowe r lobe and calcified right hilar lymph nodes are again noted. The heart is stable in size. IMPRESSION: 1. The endotracheal tube terminates 6.9 cm from the laverne. This should be advanced by approximately 3 cm. 2. Slight progression of the bilateral airspace opacities. 3. These findings were called/faxed to the referring physician following dictation. ACT 112: Negative or not required by law. Electronically signed by: Gwyn Shaw M.D. 07/16/2020 9:17 AM
[2020-07-16] MEDS ORDERED: dexAMETHasone 14 MG in DEXTROSE 5% 25 ML IV ONE (09:30)
--- NOTE | 2020-07-16 09:51 | Hospitalist Progress Note ---
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 Had difficulty with tolerating Vapotherm high flow nasal cannula and was not able to maintain pulse ox greater than 88% on max settings of high flow along with 15 L nonrebreather mask over his mouth Mentation began to worsen and he became hypercapnic as well on the morning of 07/11, also tachypneic Placed on trial of BiPAP and failed Chest x-ray and overall picture consistent with ARDS Transferred to ICU and was intubated and is mechanically ventilated as of the a.m. of 07/11 Remains intubated,sedated, paralyzed. 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 -Continue dexamethasone 6 mg IV once daily x10-day course -Continue albuterol -He is outside the range for giving remdesivir or convalescent plasma as he is over 1 week out from diagnosis -Initially was given IV azithromycin but procalcitonin negative and no leukocytosis-this was discontinued -started having fevers on 07/11 and finally defervesced on 07/14 -sputum culture with moderate normal petra -BCxs from admission NGTD, repeat BCxs 07/13 no growth to date (2) Acute hypoxemic respiratory failure: As noted above severe ARDS, requiring neuromuscular blockade guarded prognosis Mechanical ventilation as above (3) Sepsis: Sepsis in setting of COVID19 pneumonia with septic shock Now weaned off levophed on 07/15 With fevers developing on 07/10 possibly due to viral PNA, now resolved since 07/13 Treatment as above -continue ceftriaxone for UTI x7-day course -follow repeat BCxs-no growth to date Sputum culture moderate normal petra (4) Acute kidney injury: Creatinine 2.38 upon admission, 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 coli resistant to ampicillin, Unasyn, and Bactrim, but sensitive to ceftriaxone -Continue ceftriaxone 2 g IV every 24 hours x7 day course-last day of treatment today (7) Elevated transaminase level: AST and ALT were up to 99 and 74, respectively, and now trending down towards normal This is secondary to Covid-19 pneumonia Follow CMP (8) Anxiety: On lorazepam 1 mg 3 times daily at home Now receiving Versed as needed while ventilated (9) Hypokalemia: replaced and now resolved Follow BMP, magnesium (10) Hypertension: Blood pressures were low, requiring pressor but now weaned off Levophed Holding home telmisartan/HCT for acute kidney injury Metoprolol on hold as well (11) Osteoarthritis: Hold diclofenac due to acute kidney injury (12) CAD (coronary artery disease), [place] coronary artery: With a history of coronary stent Troponin minimally elevated and stable x2 most likely secondary to myocardial demand ischemia from profound hypoxia -continue aspirin 81 mg daily given presence of stent -continue statin -holding metoprolol succinate 50 mg daily for hypotension (13) Hyperlipidemia: Continue atorvastatin 80 mg every morning (14) DVT prophylaxis: Lovenox 40 mg SQ every 12 FEN-no IV fluids other than medications, on tube feeds at 10 mL's per hour when not proned [id number], central venous catheter, Alicia catheter GI prophylaxis-IV Protonix Disposition-continued stay in ICU, prognosis remains guarded Full code Admission and Anticipated Discharge Date Admission Date: July 08, 2020 Subjective chart reviewed ICU managing trying to wean sedation, still requiring neuromuscular blockade due to severe ARDS, improve ventilator compliance ICU updated his family Review of Systems Review of Systems: Unobtainable due to endotracheal tube and Unobtainable due to reduced consciousness Physical Exam Constitutional: well developed, well nourished and + mechanically ventilated; no acute distress Respiratory: + tachypneic; no respiratory distress Auscultation: lungs clear to auscultation bilaterally Cardiovascular: RRR, no murmur, no edema Gastrointestinal (Abdomen): normal bowel sounds, soft, nontender, no hepatosplenomegaly Musculoskeletal: Head/Neck/Chest: normocephalic, head atraumatic and neck supple Extremities: extremities normal to inspection; no cyanosis, no clubbing and no petechiae Skin: no rashes, warm and dry Neurologic: CN's II-XI intact bilaterally and + obtunded; no focal motor deficits Results & Data Results & Data ([facility]) Vital Signs (Past 12 Hours) Vital Signs Temp Pulse Resp BP Pulse Ox 07/16/20 07:25 45 L 32 H 92 07/16/20 06:00 36.7 C 50 L 91 07/16/20 05:10 36.7 C 50 L 129/68 92 07/16/20 05:00 36.7 C 51 L 92 07/16/20 04:12 49 L 32 H 92 07/16/20 04:10 36.7 C 51 L 133/69 92 07/16/20 04:00 36.6 C 54 L 155/69 H 92 07/16/20 03:10 36.5 C 49 L 138/72 91 07/16/20 03:00 36.5 C 52 L 91 07/16/20 02:11 36.5 C 56 L 139/74 90 07/16/20 02:00 36.6 C 51 L 95 07/16/20 01:58 52 L 32 H 93 07/16/20 01:10 36.5 C 57 L 160/85 H 95 07/16/20 01:00 36.6 C 58 L 95 07/16/20 00:10 37.0 C 55 L 135/70 93 07/16/20 00:00 37.1 C 53 L 136/77 91 07/15/20 23:10 37.1 C 49 L 136/77 94 07/15/20 23:00 37.1 C 49 L 93 07/15/20 22:12 47 L 32 H 96 07/15/20 22:10 37.2 C 53 L 139/78 95 07/15/20 22:00 37.2 C 49 L 95 Laboratory Results Laboratory Results - last 24 hr 07/15/20 07/15/20 07/15/20 10:50 15:20 15:52 WBC RBC Hgb Hct MCV MCH MCHC RDW Std Deviation RDW Coeff of Fernanda Plt Count MPV Immature Gran % (Auto) Neut % (Auto) Lymph % (Auto) Cloud % (Auto) Eos % (Auto) Baso % (Auto) Neut # (Auto) Lymph # (Auto) Cloud # (Auto) Eos # (Auto) Baso # (Auto) Immature Gran # (Auto) Sample Site Art Line POC pH 7.38 POC pCO2 59 H POC pO2 69 L POC HCO3 35 H POC Total CO2 36 H POC Base Excess 9.0 H POC ABG O2 Sat 92.0 Tavo Test NA O2 Delivery Device Ventilator POC O2 Rate 32 Minute Ventilation 11.3 Tidal Volume 320 PEEP 14 Sodium Potassium Chloride Carbon Dioxide Anion Gap BUN Creatinine Est Cr Clr Drug Dosing Est GFR ( Amer) Est GFR (Non-Af Amer) BUN/Creatinine Ratio Glucose POC Glucose 155 H 150 H Calcium Phosphorus Magnesium Total Bilirubin AST ALT Alkaline Phosphatase Total Protein Albumin Globulin Albumin/Globulin Ratio 07/16/20 07/16/20 07/16/20 04:20 04:30 04:30 WBC 12.05 H RBC 4.07 L Hgb 12.6 L Hct 39.1 L MCV 96.1 MCH 31.0 MCHC 32.2 RDW Std Deviation 48.8 H RDW Coeff of Fernanda 13.7 Plt Count 201 MPV 10.0 Immature Gran % (Auto) 3.8 Neut % (Auto) 80.8 Lymph % (Auto) 9.2 Cloud % (Auto) 5.9 Eos % (Auto) 0.1 Baso % (Auto) 0.2 Neut # (Auto) 9.74 H Lymph # (Auto) 1.11 L Cloud # (Auto) 0.71 H Eos # (Auto) 0.01 Baso # (Auto) 0.02 Immature Gran # (Auto) 0.46 H Sample Site Art Line POC pH 7.34 L POC pCO2 64 H POC pO2 85 POC HCO3 35 H POC Total CO2 36 H POC Base Excess 9.0 H POC ABG O2 Sat 95.0 Tavo Test NA O2 Delivery Device Ventilator POC O2 Rate 32 Minute Ventilation 11.4 Tidal Volume 350 PEEP 16 Sodium 141 Potassium 4.3 Chloride 103 Carbon Dioxide 34 H Anion Gap 4.0 BUN 36 H Creatinine 0.95 Est Cr Clr Drug Dosing 99.5 Est GFR ( Amer) 95.6 Est GFR (Non-Af Amer) 82.5 BUN/Creatinine Ratio 37.6 H Glucose 120 H POC Glucose Calcium 7.9 L Phosphorus 2.9 Magnesium 2.4 Total Bilirubin 0.4 AST 41 H ALT 37 Alkaline Phosphatase 32 L Total Protein 5.9 L Albumin 1.8 L Globulin 4.1 H Albumin/Globulin Ratio 0.4 L Medications Administered Current Inpatient Medications Acetaminophen (Acetaminophen Susp 325 Mg/10.15 Ml Udc) 650 mg OG Q6H PRN PRN Reason: Fever Stop: 08/12/20 03:28 Last Admin: 07/15/20 07:16 Dose: 650 mg Documented by: Albuterol (Albut/Ipratrop 3mg/0.5mg Neb 3 Ml Vial) 3 ml NEB Q4R PRN PRN Reason: Shortness Of Breath Or Wheezing Stop: 08/08/20 08:46 Aspirin (Aspirin 81 Mg Chew) 81 mg PO QAM PIERRE Stop: 08/11/20 09:59 Last Admin: 07/16/20 08:05 Dose: 81 mg Documented by: Atorvastatin Calcium (Atorvastatin 40 Mg Tab) 80 mg PO QAM [facility] Stop: 08/08/20 08:59 Last Admin: 07/16/20 08:05 Dose: 80 mg Documented by: Dextrose (Dextrose 50% 50 Ml Syringe) 25 - 50 ml IV UD PRN; Protocol PRN Reason: Hypoglycemia Protocol Stop: 08/11/20 10:59 Enoxaparin Sodium (Enoxaparin Inj 40 Mg/0.4 Ml Syr) 40 mg SQ Q12 PIERRE Stop: 08/09/20 18:59 Last Admin: 07/16/20 08:05 Dose: 40 mg Documented by: Fentanyl Citrate (Fentanyl Bolus From Bag) 50 mcg IV Q60M PRN PRN Reason: Pain or Agitation Stop: 07/25/20 14:07 Last Admin: 07/13/20 08:55 Dose: 50 mcg Documented by: Glucagon (Glucagon For Inj 1 Mg Vial) 1 mg IM UD PRN; Protocol PRN Reason: Hypoglycemia Protocol Stop: 08/11/20 10:59 Glucose (Glucose 40% Gel 15 Gm Tube) 15 - 30 gm PO UD PRN; Protocol PRN Reason: Hypoglycemia Protocol Stop: 08/11/20 10:59 Glucose (Glucose 10 Tabs/Tube) 4 - 8 tabs PO UD PRN; Protocol PRN Reason: Hypoglycemia Protocol Stop: 08/11/20 10:59 Heparin Sodium (Beef Lung) (Heparin 10 Unit/Ml 5 Ml Flush) 5 ml FLUSH PRN PRN PRN Reason: Flush Stop: 08/12/20 22:46 Midazolam HCl (Versed) 125 mg in 250 mls @ 20 mls/hr IV .[id number] PIERRE; Protocol Stop: 08/10/20 14:14 Last Titration: 07/16/20 09:48 Dose: 8 mg/hr, 16 mls/hr Documented by: Fentanyl Citrate (Fentanyl Drip) 1,250 mcg in 250 mls @ 35 mls/hr IV .Q7H9M PIERRE; Protocol Stop: 07/25/20 14:14 Last Titration: 07/16/20 09:47 Dose: 175 mcg/hr, 35 mls/hr Documented by: Norepinephrine Bitartrate (Levophed/D5w) 8 mg in 508 mls @ 24.784 mls/hr IV .[id number] PIERRE; Protocol Stop: 08/10/20 14:14 Last Titration: 07/15/20 16:55 Dose: Infused Documented by: Ceftriaxone Sodium 2,000 mg/ (Dextrose) 70 mls @ 100 mls/hr IV DAILY PIERRE; Protocol Stop: 07/17/20 08:59 Last Admin: 07/16/20 08:06 Dose: 100 mls/hr Documented by: Pantoprazole Sodium 40 mg/ (Syringe) 10 mls @ 5 mls/min IV DAILY@1100 [facility] Stop: 08/11/20 10:59 Last Admin: 07/15/20 12:00 Dose: 5 mls/min Documented by: Cisatracurium Besylate 100 mg/ (Sodium Chloride) 250 mls @ 30.78 mls/hr IV .Q8H8M PIERRE; Protocol Stop: 08/12/20 14:29 Last Admin: 07/16/20 08:03 Dose: 3 mcg/kg/min, 30.8 mls/hr Documented by: Dexamethasone Sodium Phosphate (14 mg/ Dextrose) 28.5 mls @ 0.95 mls/min IV ONE ONE Stop: 07/16/20 09:59 Dexamethasone Sodium Phosphate (10 mg/ Syringe) 2.5 mls @ 1 mls/min IV DAILY PIERRE Stop: 07/27/20 08:59 Dexamethasone Sodium Phosphate (20 mg/ Dextrose) 30 mls @ 60 mls/hr IV DAILY PIERRE Stop: 07/21/20 09:29 Furosemide 40 mg/ Syringe 4 mls @ 4 mls/min IV BID PIERRE Stop: 08/16/20 08:59 Furosemide 40 mg/ Syringe 4 mls @ 4 mls/min IV ONE ONE Stop: 07/16/20 21:01 Insulin Aspart (Insulin Aspart 100 Units/Ml 3 Ml Pen) 0 units SC Q6 PIERRE Stop: 08/11/20 11:59 Last Admin: 07/16/20 06:04 Dose: Not Given Documented by: Midazolam HCl (Midazolam Bolus From Bag) 2 mg IV Q60M PRN PRN Reason: Sedation Stop: 08/10/20 14:07 Miscellaneous (Icu Electrolyte Replacement Protocol) 1 ea N/A BID@06,18 [facility]; Protocol Stop: 07/18/20 17:59 Last Admin: 07/16/20 06:07 Dose: 1 ea Documented by: Miscellaneous (Carbohydrates For Hypoglycemia ) 15 - 30 gm PO UD PRN PRN Reason: Hypoglycemia Treatment Stop: 08/11/20 10:59 Multi-Ingredient Cream (Artificial Tears Op Oint 3.5 Gm Tube) 1 appln OP Q4H PRN PRN Reason: Anesthesia Stop: 08/10/20 23:48 Last Admin: 07/14/20 08:00 Dose: 1 appln Documented by: Nutritional Formula (Peptamen Intense Vhp 1.0 Fortunato 1,000 Ml Bag) 1,000 ml OG DAILY [facility]; Protocol Stop: 08/11/20 10:59 Last Admin: 07/15/20 08:41 Dose: 1,000 ml Documented by: PG Care Time/CCT Total # of Minutes Spent Total Time Spent with Patient: Total time spent is greater than 50% in coordination of care (as documented) at patient's floor/unit and/or counseling patient: Coding Level of Care Code 71410 Subseq Hosp Care Lvl 2 Diagnoses Pneumonia due to COVID-19 virus U07.1; J12.82 Acute hypoxemic respiratory failure J96.01 Sepsis A41.9 Acute kidney injury N17.9 Elevated troponin R77.8 UTI (urinary tract infection) N39.0 Elevated transaminase level R74.01 Anxiety F41.9 Hypokalemia E87.6 Hypertension I10 Osteoarthritis M19.90 CAD (coronary artery disease), [place] coronary artery I25.10 Hyperlipidemia E78.5 DVT prophylaxis Z29.9
--- NOTE | 2020-07-16 10:17 | Critical Care Progress Note ---
Date of Service July 16, 2020 Assessment & Plan (1) Acute hypoxemic respiratory failure: (2) Pneumonia due to COVID-19 virus: Impression: 65-year-old male with morbid obesity and ARDS secondary to COVID-19 pneumonia. He is failed conservative measures with oxygen and BiPAP and intubation mechanical ventilation were instituted Recommendations: 1. Neurologic: We will try to wean Versed and fentanyl as able. Given his severe ARDS will continue on neuromuscular blockade for at least additional 24 hours to facilitate compliance with ventilator. 2. Pulmonary: Severe ARDS secondary to COVID-19 pneumonia. Day #6 mechanical ventilation. Continue ARDSNET protocol. We will start the DEXA ARDS protocol. 3. Cardiovascular: History of coronary disease. He hemodynamically stable currently. Now off pressors. History of CARSON, continue ASA. 4. Renal: No current issues. Electrolyte replacement will be initiated. Follow acid-base status. Trend urine output. 40 mg BID lasix. He is 10+ liters positive. 5. GI: No current issues. PPI will be initiated. Currently tolerating trophic feeds. Can advance as tolerated now that he is off pressors. 6. ID: He is completing a course of Rocephin today on 07/16/2020 for UTI. PCT was negative today. 7. Endocrine: Glycemic control per protocol. 8. Heme-onc: No current issues. DVT prophylaxis with Lovenox. Patient's overall prognosis remains guarded at this point time. CRITICAL CARE TIME - I have personally spent 41 minutes of critical care time in the direct management of this patient. This is a life/limb threatening event. This includes time spent evaluating patient, direct bedside care, chart review, placing orders, interpretation of diagnostic studies, discussion with consultants, patient, and family members, as well as other required patient management activities. This time is exclusive of all separately billable procedures, and teaching time and separate from and in addition to any other critical care service time. Admission and Anticipated Discharge Date Admission Date: July 08, 2020 Subjective Patient intubated, sedated and on Nimbex. Unable to participate in exam. Discussed with bedside RN. Currently on high doses of versed and fentanyl ggt. Review of Systems Review of Systems: All systems reviewed & are unremarkable except as noted in HPI & below Physical Exam Constitutional: + obese and + mechanically ventilated Neck: trachea midline, no thyromegaly Respiratory: normal respiratory effort, lungs clear to auscultation Cardiovascular: RRR, no murmur, no edema Gastrointestinal (Abdomen): normal bowel sounds, soft, nontender, no hepatosplenomegaly Musculoskeletal: Extremities: extremities normal to inspection Skin: no rashes, warm and dry Neurologic: Unable to follow commands. Paralyzed and sedated. Lymphatic: no cervical lymphadenopathy Results & Data Results & Data ([facility]) Vital Signs (Past 12 Hours) Vital Signs Temp Pulse Resp BP Pulse Ox 07/16/20 07:25 45 L 32 H 92 07/16/20 06:00 98.1 F 50 L 91 07/16/20 05:10 98.1 F 50 L 129/68 92 07/16/20 05:00 98.1 F 51 L 92 07/16/20 04:12 49 L 32 H 92 07/16/20 04:10 98.1 F 51 L 133/69 92 07/16/20 04:00 97.9 F 54 L 155/69 H 92 07/16/20 03:10 97.7 F 49 L 138/72 91 07/16/20 03:00 97.7 F 52 L 91 07/16/20 02:11 97.7 F 56 L 139/74 90 07/16/20 02:00 97.9 F 51 L 95 07/16/20 01:58 52 L 32 H 93 07/16/20 01:10 97.7 F 57 L 160/85 H 95 07/16/20 01:00 97.9 F 58 L 95 07/16/20 00:10 98.6 F 55 L 135/70 93 07/16/20 00:00 98.8 F 53 L 136/77 91 07/15/20 23:10 98.8 F 49 L 136/77 94 07/15/20 23:00 98.8 F 49 L 93 I reviewed the vital signs, labs and imaging. Coding Level of Care Code Critical Care 1st 30-74 mins Diagnoses Acute hypoxemic respiratory failure J96.01 Pneumonia due to COVID-19 virus U07.1; J12.82 Time Spent (min) 41
[2020-07-16] MEDS: PANTOprazole 40 MG in SYRINGE 0 ML IV SCH (11:02)
[2020-07-16 11:17] LABS: iSTAT Arterial Blood Gas HCO3 36 meg/L (19-24); iSTAT Arterial Blood Gas pCO2 75 mmHg (35-46); iSTAT Arterial Blood Gas pH 7.29 (7.35-7.45); iSTAT Arterial Blood Gas pO2 91 mmHg (80-95); iSTAT Carbon Dioxide 38 mmol/L (24-31); iSTAT Site Art Line
[2020-07-16 16:43] LABS: BUN Creatinine Ratio 35.6 (10-20); Calcium 8.3 mg/dl (8.5-10.1); Creatinine Clr Calc Pharmacy 92.7 ml/min; Est GFR (African American) 87.7; Est GFR (Non-African American) 75.7
[2020-07-16] MEDS: PEPTAMEN INTENSE VHP 1.0 CAL 1,000 ML BAG OG SCH (16:59)
[2020-07-16] MEDS ORDERED: Nursing to Pharmacy Communication SCH (17:15)
[2020-07-16 17:31] LABS: Thyroid Stimulating Hormone 0.252 uIu/ml (0.300-4.500)
[2020-07-16 17:45] LABS: T4 Free Thyroxine 0.74 ng/dl (0.8-1.6)
--- NOTE | 2020-07-16 19:21 | Communication Note ---
Date of Service: July 16, 2020 Was notified by nursing that the patient's daughter, Hailey, wish to discuss with the provider the patient's CODE STATUS and plan of care further. Dr. April rome had previously discussed CODE STATUS and plan of care with the family earlier today and they were going to review his living will and further discuss amongst themselves. In conclusion to their discussion and review of the patient's living well, patient is now DNR CODE STATUS in the event of cardiac arrest he would not want her road measures. Patient's family also discussed options of tracheostomy, and in conclusion did not feel that the patient would want to be trached. Patient's family was updated on current condition and will continue with current therapy for now and change CODE STATUS to DNR. Coding Level of Care Code None
[2020-07-16 21:00] LABS: BUN Creatinine Ratio 36.7 (10-20); Calcium 8.3 mg/dl (8.5-10.1); Creatinine Clr Calc Pharmacy 84.4 ml/min; Est GFR (African American) 78.4; Est GFR (Non-African American) 67.6
[2020-07-16] MEDS ORDERED: FUROSEMIDE 40 MG in SYRINGE 0 ML IV ONE (21:00)
[2020-07-16 21:03] LABS: Albumin Globulin Ratio 0.4 (0.9-2); Bilirubin,Total 0.3 mg/dl (0.2-1); Globulin 4.5 gm/dl (2.5-4.0); Total Protein 6.5 gm/dl (6.4-8.2)
[2020-07-17] MEDS: INSULIN ASPART 100 UNITS/ML 3 ML PEN SC SCH ×4 (00:49→18:28)
[2020-07-17] MEDS: CISATRACURIUM BESYLATE 100 MG in SODIUM CHLORIDE 0.9% 200 ML IV SCH (01:07)
[2020-07-17] MEDS: fentaNYL DRIP 1,250 MCG/250 ML BAG IV SCH ×2 (03:09→17:06)
[2020-07-17 05:07] LABS: iSTAT Allen Test Pass; iSTAT Art Bld Gas pCO2 Correct 60 mmHg (35-46); iSTAT Art Bld Gas pH Corrected 7.391 (7.35-7.45); iSTAT Arterial Blood Gas HCO3 37 meg/L (19-24); iSTAT Arterial Blood Gas pCO2 61 mmHg (35-46); iSTAT Arterial Blood Gas pH 7.39 (7.35-7.45); iSTAT Arterial Blood Gas pO2 81 mmHg (80-95); iSTAT Arterial Blood Gas pO2 C 80; iSTAT Carbon Dioxide 38 mmol/L (24-31); iSTAT Hematocrit 38 % (42-52); iSTAT Hemoglobin 12.9 g/dl (14.0-18.0); iSTAT Potassium 4.4 mmol/L (3.3-5.0); iSTAT Site Art Line; iSTAT Sodium 138 mmol/L (135-144)
[2020-07-17 05:29] LABS: Hematocrit (blood only) 39.8 % (42-52); Mean Corpuscular Hemoglobin 31.8 pg (25-34); Mean Corpuscular Hgb Conc 32.7 g/dL (32-36); Mean Corpuscular Volume 97.3 fL (80-100); Mean Platelet Volume 10.4 fL (7.4-10.4); Platelet Count 206 K/uL (130-400); RDW Coefficient of Variation 13.5 % (11.5-14.5); RDW Standard Deviation 48.3 fL (36.4-46.3); Red Blood Count 4.09 M/uL (4.7-6.1); White Blood Count 10.96 K/uL (4.8-10.8)
[2020-07-17 06:02] LABS: Albumin Level 1.9 gm/dl (3.4-5.0); BUN Creatinine Ratio 45.4 (10-20); Calcium 8.2 mg/dl (8.5-10.1); Creatinine Clr Calc Pharmacy 94.8 ml/min; Est GFR (Non-African American) 78.5; Magnesium 2.3 mg/dl (1.8-2.4); Potassium 4.3 mmol/L (3.5-5.1)
[2020-07-17 06:05] LABS: Albumin Globulin Ratio 0.5 (0.9-2); Bilirubin,Total 0.4 mg/dl (0.2-1); Globulin 4.2 gm/dl (2.5-4.0); Phosphorus 2.4 mg/dl (2.5-4.9); Total Protein 6.1 gm/dl (6.4-8.2)
[2020-07-17 06:31] LABS: Basophils # (auto) 0.02 K/uL (0-0.2); Basophils % (auto) 0.2 %; Immature Granulocytes # (auto) 0.59 K/uL (0.00-0.02); Immature Granulocytes % (auto) 5.4 %; Lymphocytes # (auto) 1.35 K/uL (1.2-3.4); Lymphocytes % (auto) 12.3 %; Monocytes # (auto) 0.26 K/uL (0.11-0.59); Monocytes % (auto) 2.4 %; Neutrophils # (auto) 8.74 K/uL (1.4-6.5); Neutrophils % (auto) 79.7 %
[2020-07-17] MEDS: ICU ELECTROLYTE REPLACEMENT PROTOCOL SCH ×2 (06:34→17:03)
[2020-07-17] MEDS ORDERED: SODIUM PHOSPHATE 3 MMOL/1 ML INFUSION IV STA (06:35)
[2020-07-17] MEDS ORDERED: SODIUM PHOSPHATE 15 MMOL in SODIUM CHLORIDE 0.9% 250 ML IV ONE (06:45)
--- NOTE | 2020-07-17 07:38 | XRay Report ---
XR chest 1V portable CLINICAL HISTORY: Respiratory failure COMPARISON STUDY: July 16, 2020 FINDINGS: There is an endotracheal tube positioned 3.5 cm above the laverne. There is an enteric tube within the stomach. The cardiac and mediastinal contours remain stable. There are persistent bilatera l pulmonary airspace opacities. These appears slightly improved when compared the prior study[ IMPRESSION: Slight improvement in the extensive bilateral pulmonary airspace opacities ACT 112: Negative or not required by law. Electronically signed by: Jimmie Manuel M.D. 07/17/2020 7:37 AM
--- NOTE | 2020-07-17 08:14 | Hospitalist Progress Note ---
Date of Service July 17, 2020 Assessment & Plan (1) Pneumonia due to COVID-19 virus: Pneumonia due to COVID-19 He had a positive test 7 days PACKER AND CARRY OUT at [facility] with no previous treatment. Had difficulty with tolerating Vapotherm high flow nasal cannula and was not able to maintain pulse ox greater than 88% on max settings of high flow along with 15 L nonrebreather mask over his mouth Mentation began to worsen and he became hypercapnic as well on the morning of 07/11, also tachypneic Placed on trial of BiPAP and failed Chest x-ray and overall picture consistent with ARDS Transferred to ICU and was intubated and is mechanically ventilated as of the a.m. of 07/11 Remains intubated,sedated, paralyzed. 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 -Continue dexamethasone 6 mg IV once daily x10-day course -Continue albuterol -He is outside the range for giving remdesivir or convalescent plasma as he is over 1 week out from diagnosis -Initially was given IV azithromycin but procalcitonin negative and no leukocytosis-this was discontinued -started having fevers on 07/11 and finally defervesced on 07/14 -sputum culture with moderate normal petra -BCxs from admission NGTD, repeat BCxs 07/13 no growth to date (2) Acute hypoxemic respiratory failure: As noted above severe ARDS, requiring neuromuscular blockade guarded prognosis Mechanical ventilation as above family states he would not want tracheostomy, will try to wean off ventilator if possible (3) Sepsis: Sepsis in setting of COVID19 pneumonia with septic shock Now weaned off levophed on 07/15 With fevers developing on 07/10 possibly due to viral PNA, now resolved since 07/13 Treatment as above -continue ceftriaxone for UTI x7-day course -follow repeat BCxs-no growth to date Sputum culture moderate normal petra (4) Acute kidney injury: Creatinine 2.38 upon admission, with recent 1.36 PACKER AND CARRY OUT Has improved to 0.9 Initially given IV fluids, but later required furosemide 40 mg IV due to worsening hypoxia Continue to hold telmisartan/HCTZ and diclofenac Received another dose of IV Lasix 07/11 Follow CMP Follow urine output Placed Alicia catheter Lasix to keep volume off (5) Elevated troponin: likely secondary to myocardial demand ischemia Was minimally elevated at 0.035/0.019/0.02 ECG without ischemic changes (6) UTI (urinary tract infection): Urinalysis abnormal He denies symptoms but has had UTIs in the past Urine culture growing E. coli resistant to ampicillin, Unasyn, and Bactrim, but sensitive to ceftriaxone -Continue ceftriaxone 2 g IV every 24 hours x7 day course-last day of treatment today (7) Elevated transaminase level: AST and ALT were up to 99 and 74, respectively, and now trending down towards normal This is secondary to Covid-19 pneumonia Follow CMP (8) Anxiety: On lorazepam 1 mg 3 times daily at home Now receiving Versed as needed while ventilated (9) Hypokalemia: replaced and now resolved Follow BMP, magnesium (10) Hypertension: Blood pressures were low, requiring pressor but now weaned off Levophed Holding home telmisartan/HCT for acute kidney injury Metoprolol on hold as well (11) Osteoarthritis: Hold diclofenac due to acute kidney injury (12) CAD (coronary artery disease), yurok coronary artery: With a history of coronary stent Troponin minimally elevated and stable x2 most likely secondary to myocardial demand ischemia from profound hypoxia -continue aspirin 81 mg daily given presence of stent -continue statin -holding metoprolol succinate 50 mg daily for hypotension (13) Hyperlipidemia: Continue atorvastatin 80 mg every morning (14) DVT prophylaxis: Lovenox 40 mg SQ every 12 FEN-no IV fluids other than medications, on tube feeds at 10 mL's per hour when not proned [id number], central venous catheter, Alicia catheter GI prophylaxis-IV Protonix Disposition-continued stay in ICU, prognosis remains guarded Full code Admission and Anticipated Discharge Date Admission Date: July 08, 2020 Subjective spoke with ICU, they are managing patient's family called in, they want him to be DNR, would not want a tracheostomy as they feel patient would not want this will try to wean off ventilator Review of Systems Review of Systems: Unobtainable due to endotracheal tube and Unobtainable due to reduced consciousness Physical Exam Constitutional: well developed, well nourished and + mechanically ventilated; no acute distress Respiratory: + tachypneic; no respiratory distress Auscultation: lungs clear to auscultation bilaterally Cardiovascular: RRR, no murmur, no edema Gastrointestinal (Abdomen): normal bowel sounds, soft, nontender, no hepatosplenomegaly Musculoskeletal: Head/Neck/Chest: normocephalic, head atraumatic and neck supple Extremities: extremities normal to inspection; no cyanosis, no clubbing and no petechiae Skin: no rashes, warm and dry Neurologic: CN's II-XI intact bilaterally and + obtunded; no focal motor deficits Results & Data Results & Data ([facility]) Vital Signs (Past 12 Hours) Vital Signs Temp Pulse Resp BP Pulse Ox 07/17/20 05:11 36.8 C 44 L 25 H 136/69 90 07/17/20 04:52 55 L 26 H 93 07/17/20 04:11 36.8 C 45 L 25 H 135/73 92 07/17/20 03:11 36.8 C 48 L 25 H 157/80 H 92 07/17/20 02:20 43 L 25 H 93 07/17/20 02:11 36.8 C 43 L 25 H 143/74 H 94 07/17/20 01:11 36.8 C 46 L 25 H 136/72 93 07/17/20 00:11 36.9 C 48 L 25 H 134/69 90 07/16/20 23:11 37.0 C 59 L 25 H 129/66 90 07/16/20 22:40 44 L 25 H 94 07/16/20 22:11 37.1 C 43 L 25 H 140/74 94 07/16/20 21:11 37.1 C 44 L 25 H 139/76 93 Laboratory Results Laboratory Results - last 24 hr 07/16/20 07/16/20 07/16/20 09:40 10:48 11:27 WBC RBC Hgb POC Hgb Hct POC Hct MCV MCH MCHC RDW Std Deviation RDW Coeff of Fernanda Plt Count MPV Immature Gran % (Auto) Neut % (Auto) Lymph % (Auto) Pickett % (Auto) Eos % (Auto) Baso % (Auto) Neut # (Auto) Lymph # (Auto) Pickett # (Auto) Eos # (Auto) Baso # (Auto) Immature Gran # (Auto) Sample Site Art Line POC pH 7.29 L POC pCO2 75 H POC pO2 91 POC HCO3 36 H POC Total CO2 38 H POC Base Excess 10.0 H ABG pH (Temp Correct) ABG pCO2 (Temp Corrct POC ABG pO2 at Pt Temp POC ABG O2 Sat 95.0 Tavo Test NA O2 Delivery Device Ventilator POC O2 Rate 22 Tidal Volume 385 PEEP 16 POC Sodium Sodium POC Potassium Potassium Chloride Carbon Dioxide Anion Gap BUN Creatinine Est Cr Clr Drug Dosing Est GFR ( Amer) Est GFR (Non-Af Amer) BUN/Creatinine Ratio Glucose POC Glucose 129 H Calcium Phosphorus Magnesium Total Bilirubin AST ALT Alkaline Phosphatase Total Protein Albumin Globulin Albumin/Globulin Ratio Procalcitonin 0.05 TSH Free T4 07/16/20 07/16/20 07/16/20 15:55 17:35 20:27 WBC RBC Hgb POC Hgb Hct POC Hct MCV MCH MCHC RDW Std Deviation RDW Coeff of Fernanda Plt Count MPV Immature Gran % (Auto) Neut % (Auto) Lymph % (Auto) Pickett % (Auto) Eos % (Auto) Baso % (Auto) Neut # (Auto) Lymph # (Auto) Pickett # (Auto) Eos # (Auto) Baso # (Auto) Immature Gran # (Auto) Sample Site POC pH POC pCO2 POC pO2 POC HCO3 POC Total CO2 POC Base Excess ABG pH (Temp Correct) ABG pCO2 (Temp Corrct POC ABG pO2 at Pt Temp POC ABG O2 Sat Tavo Test O2 Delivery Device POC O2 Rate Tidal Volume PEEP POC Sodium Sodium 139 139 POC Potassium Potassium 5.0 D 5.0 Chloride 101 101 Carbon Dioxide 33 H 34 H Anion Gap 5.0 4.0 BUN 36 H 41 H Creatinine 1.02 1.12 Est Cr Clr Drug Dosing 92.7 84.4 Est GFR ( Amer) 87.7 78.4 Est GFR (Non-Af Amer) 75.7 67.6 BUN/Creatinine Ratio 35.6 H 36.7 H Glucose 164 H 168 H POC Glucose 155 H Calcium 8.3 L 8.3 L Phosphorus Magnesium Total Bilirubin 0.3 AST 41 H ALT 41 Alkaline Phosphatase 36 L Total Protein 6.5 Albumin 2.0 L Globulin 4.5 H Albumin/Globulin Ratio 0.4 L Procalcitonin TSH 0.252 L Free T4 0.74 L 07/16/20 07/17/20 07/17/20 23:26 04:51 04:51 WBC 10.96 H RBC 4.09 L Hgb 13.0 L POC Hgb Hct 39.8 L POC Hct MCV 97.3 MCH 31.8 MCHC 32.7 RDW Std Deviation 48.3 H RDW Coeff of Fernanda 13.5 Plt Count 206 MPV 10.4 Immature Gran % (Auto) 5.4 Neut % (Auto) 79.7 Lymph % (Auto) 12.3 Pickett % (Auto) 2.4 Eos % (Auto) 0.0 Baso % (Auto) 0.2 Neut # (Auto) 8.74 H Lymph # (Auto) 1.35 Pickett # (Auto) 0.26 Eos # (Auto) 0.00 Baso # (Auto) 0.02 Immature Gran # (Auto) 0.59 H Sample Site POC pH POC pCO2 POC pO2 POC HCO3 POC Total CO2 POC Base Excess ABG pH (Temp Correct) ABG pCO2 (Temp Corrct POC ABG pO2 at Pt Temp POC ABG O2 Sat Tavo Test O2 Delivery Device POC O2 Rate Tidal Volume PEEP POC Sodium Sodium 140 POC Potassium Potassium 4.3 Chloride 101 Carbon Dioxide 35 H Anion Gap 4.0 BUN 45 H Creatinine 0.99 Est Cr Clr Drug Dosing 94.8 Est GFR ( Amer) 91.0 Est GFR (Non-Af Amer) 78.5 BUN/Creatinine Ratio 45.4 H Glucose 138 H POC Glucose 145 H Calcium 8.2 L Phosphorus 2.4 L Magnesium 2.3 Total Bilirubin 0.4 AST 35 ALT 38 Alkaline Phosphatase 37 L Total Protein 6.1 L Albumin 1.9 L Globulin 4.2 H Albumin/Globulin Ratio 0.5 L Procalcitonin TSH Free T4 07/17/20 07/17/20 04:53 05:39 WBC RBC Hgb POC Hgb 12.9 L Hct POC Hct 38 L MCV MCH MCHC RDW Std Deviation RDW Coeff of Fernanda Plt Count MPV Immature Gran % (Auto) Neut % (Auto) Lymph % (Auto) Pickett % (Auto) Eos % (Auto) Baso % (Auto) Neut # (Auto) Lymph # (Auto) Pickett # (Auto) Eos # (Auto) Baso # (Auto) Immature Gran # (Auto) Sample Site Art Line POC pH 7.39 POC pCO2 61 H POC pO2 81 POC HCO3 37 H POC Total CO2 38 H POC Base Excess 12.0 H ABG pH (Temp Correct) 7.391 ABG pCO2 (Temp Corrct 60 H POC ABG pO2 at Pt Temp 80 POC ABG O2 Sat 95.0 Tavo Test Pass O2 Delivery Device Ventilator POC O2 Rate 25 Tidal Volume 385 PEEP 12 POC Sodium 138 Sodium POC Potassium 4.4 Potassium Chloride Carbon Dioxide Anion Gap BUN Creatinine Est Cr Clr Drug Dosing Est GFR ( Amer) Est GFR (Non-Af Amer) BUN/Creatinine Ratio Glucose POC Glucose 125 H Calcium Phosphorus Magnesium Total Bilirubin AST ALT Alkaline Phosphatase Total Protein Albumin Globulin Albumin/Globulin Ratio Procalcitonin TSH Free T4 Medications Administered Current Inpatient Medications Acetaminophen (Acetaminophen Susp 325 Mg/10.15 Ml Udc) 650 mg OG Q6H PRN PRN Reason: Fever Stop: 08/12/20 03:28 Last Admin: 07/15/20 07:16 Dose: 650 mg Documented by: Acetazolamide (Acetazolamide 250 Mg Tab) 250 mg PO BID [facility] Stop: 07/18/20 21:01 Albuterol (Albut/Ipratrop 3mg/0.5mg Neb 3 Ml Vial) 3 ml NEB Q4R PRN PRN Reason: Shortness Of Breath Or Wheezing Stop: 08/08/20 08:46 Aspirin (Aspirin 81 Mg Chew) 81 mg PO QAM PIERRE Stop: 08/11/20 09:59 Last Admin: 07/16/20 08:05 Dose: 81 mg Documented by: Atorvastatin Calcium (Atorvastatin 40 Mg Tab) 80 mg PO QAM [facility] Stop: 08/08/20 08:59 Last Admin: 07/16/20 08:05 Dose: 80 mg Documented by: Dextrose (Dextrose 50% 50 Ml Syringe) 25 - 50 ml IV UD PRN; Protocol PRN Reason: Hypoglycemia Protocol Stop: 08/11/20 10:59 Enoxaparin Sodium (Enoxaparin Inj 40 Mg/0.4 Ml Syr) 40 mg SQ Q12 [facility]ERRE Stop: 08/09/20 18:59 Last Admin: 07/16/20 19:58 Dose: 40 mg Documented by: Fentanyl Citrate (Fentanyl Bolus From Bag) 50 mcg IV Q60M PRN PRN Reason: Pain or Agitation Stop: 07/25/20 14:07 Last Admin: 07/17/20 05:57 Dose: 50 mcg Documented by: Glucagon (Glucagon For Inj 1 Mg Vial) 1 mg IM UD PRN; Protocol PRN Reason: Hypoglycemia Protocol Stop: 08/11/20 10:59 Glucose (Glucose 40% Gel 15 Gm Tube) 15 - 30 gm PO UD PRN; Protocol PRN Reason: Hypoglycemia Protocol Stop: 08/11/20 10:59 Glucose (Glucose 10 Tabs/Tube) 4 - 8 tabs PO UD PRN; Protocol PRN Reason: Hypoglycemia Protocol Stop: 08/11/20 10:59 Heparin Sodium (Beef Lung) (Heparin 10 Unit/Ml 5 Ml Flush) 5 ml FLUSH PRN PRN PRN Reason: Flush Stop: 08/12/20 22:46 Midazolam HCl (Versed) 125 mg in 250 mls @ 8 mls/hr IV .[id number] [facility]; Protocol Stop: 08/10/20 14:14 Last Titration: 07/17/20 05:56 Dose: 4 mg/hr, 8 mls/hr Documented by: Fentanyl Citrate (Fentanyl Drip) 1,250 mcg in 250 mls @ 20 mls/hr IV .[id number] [facility]; Protocol Stop: 07/25/20 14:14 Last Admin: 07/17/20 03:09 Dose: 100 mcg/hr, 20 mls/hr Documented by: Ceftriaxone Sodium 2,000 mg/ (Dextrose) 70 mls @ 100 mls/hr IV DAILY [facility]; Protocol Stop: 07/17/20 08:59 Last Infusion: 07/16/20 09:00 Dose: Infused Documented by: Pantoprazole Sodium 40 mg/ (Syringe) 10 mls @ 5 mls/min IV DAILY@1100 [facility] Stop: 08/11/20 10:59 Last Admin: 07/16/20 11:02 Dose: 5 mls/min Documented by: Dexamethasone Sodium Phosphate (10 mg/ Syringe) 2.5 mls @ 1 mls/min IV DAILY [facility] Stop: 07/27/20 08:59 Dexamethasone Sodium Phosphate (20 mg/ Dextrose) 30 mls @ 60 mls/hr IV DAILY [facility] Stop: 07/21/20 09:29 Furosemide 40 mg/ Syringe 4 mls @ 4 mls/min IV BID [facility] Stop: 08/16/20 08:59 Sodium Phosphate 15 mmol/ (Sodium Chloride) 255 mls @ 88 mls/hr IV ONE ONE Stop: 07/17/20 09:38 Insulin Aspart (Insulin Aspart 100 Units/Ml 3 Ml Pen) 0 units SC Q6 [facility] Stop: 08/11/20 11:59 Last Admin: 07/17/20 05:58 Dose: Not Given Documented by: Midazolam HCl (Midazolam Bolus From Bag) 2 mg IV Q60M PRN PRN Reason: Sedation Stop: 08/10/20 14:07 Miscellaneous (Icu Electrolyte Replacement Protocol) 1 ea N/A BID@06,18 [facility]; Protocol Stop: 07/18/20 17:59 Last Admin: 07/17/20 06:34 Dose: 1 ea Documented by: Miscellaneous (Carbohydrates For Hypoglycemia ) 15 - 30 gm PO UD PRN PRN Reason: Hypoglycemia Treatment Stop: 08/11/20 10:59 Multi-Ingredient Cream (Artificial Tears Op Oint 3.5 Gm Tube) 1 appln OP Q4H PRN PRN Reason: Anesthesia Stop: 08/10/20 23:48 Last Admin: 07/14/20 08:00 Dose: 1 appln Documented by: Nutritional Formula (Peptamen Intense Vhp 1.0 Fortunato 1,000 Ml Bag) 1,000 ml OG DAILY [facility]; Protocol Stop: 08/11/20 10:59 Last Admin: 07/16/20 16:59 Dose: 1,000 ml Documented by: PG Care Time/CCT Total # of Minutes Spent Total Time Spent with Patient: Total time spent is greater than 50% in coordination of care (as documented) at patient's floor/unit and/or counseling patient: Coding Level of Care Code 52101 Subseq Hosp Care Lvl 1 Diagnoses Pneumonia due to COVID-19 virus U07.1; J12.82 Acute hypoxemic respiratory failure J96.01 Sepsis A41.9 Acute kidney injury N17.9 Elevated troponin R77.8 UTI (urinary tract infection) N39.0 Elevated transaminase level R74.01 Anxiety F41.9 Hypokalemia E87.6 Hypertension I10 Osteoarthritis M19.90 CAD (coronary artery disease), yurok coronary artery I25.10 Hyperlipidemia E78.5 DVT prophylaxis Z29.9
[2020-07-17] MEDS: dexAMETHasone 20 MG in DEXTROSE 5% 25 ML IV SCH (08:26)
[2020-07-17] MEDS: acetaZOLAMIDE 250 MG TAB PO SCH ×2 (08:27→19:16)
[2020-07-17] MEDS: FUROSEMIDE 40 MG in SYRINGE 0 ML IV SCH ×2 (08:27→19:16)
[2020-07-17] MEDS: ENOXAPARIN INJ 40 MG/0.4 ML SYR SQ SCH ×2 (08:28→19:15)
[2020-07-17] MEDS: ASPIRIN 81 MG CHEW PO SCH (08:28)
[2020-07-17] MEDS: ATORVASTATIN 40 MG TAB PO SCH (08:28)
--- NOTE | 2020-07-17 08:39 | Critical Care Progress Note ---
Date of Service July 17, 2020 Assessment & Plan (1) Acute hypoxemic respiratory failure: (2) Pneumonia due to COVID-19 virus: Impression: 65-year-old male with morbid obesity and ARDS secondary to COVID-19 pneumonia. He is failed conservative measures with oxygen and BiPAP and intubation mechanical ventilation were instituted Recommendations: 1. Neurologic: Continue weaning Versed and fentanyl as able. Goal RASS of -2. He is off the Nimbex drip at this time. 2. Pulmonary: Severe ARDS secondary to COVID-19 pneumonia. Day #7 mechanical ventilation. Continue ARDSNET protocol. We will start the DEXA ARDS protocol. Family has indicated that the patient would not want to tracheostomy. Oxygenation has improved with diuresis and higher dose steroids. No further proning at this time. 3. Cardiovascular: History of coronary disease. He hemodynamically stable currently. Now off pressors. History of CARSON, continue ASA. Continue high-dose statin given history of hyperlipidemia. 4. Renal: No current issues. Electrolyte replacement will be initiated. Trend urine output. 40 mg BID lasix. Replace electrolytes as needed. He does have evidence of an increasing bicarbonate level likely related to his acute respiratory acidosis and diuresis. We are starting Diamox 250 mg for 2 days twice daily. 5. GI: No current issues. PPI will be initiated. Currently tolerating trophic feeds. Can advance as tolerated now that he is off pressors. LFTs are stable. 6. ID: Completed 7 days worth of treatment for a urinary tract infection with Rocephin. PCT was negative today. 7. Endocrine: Glycemic control per protocol. 8. Heme-onc: No current issues. DVT prophylaxis with Lovenox. Patient's overall prognosis remains guarded at this point time. (3) Hypervolemia: (4) Morbid obesity due to excess calories: Admission and Anticipated Discharge Date Admission Date: July 08, 2020 Subjective Patient is currently on 50% FiO2 and a PEEP of 12 saturating 89%. He is down to 100 mcg of fentanyl and 4 mg of Versed. He has been off Nimbex since yesterday evening. He follows commands intermittently, but is still heavily sedated. No significant events overnight. Heart rate is currently 51. Patient's family made the patient a DNR based on his living well last night. Review of Systems Review of Systems: All systems reviewed & are unremarkable except as noted in HPI & below Physical Exam Constitutional: + obese and + mechanically ventilated Neck: trachea midline, no thyromegaly Respiratory: normal respiratory effort, lungs clear to auscultation Cardiovascular: RRR, no murmur, no edema Gastrointestinal (Abdomen): normal bowel sounds, soft, nontender, no hepatosplenomegaly Musculoskeletal: Extremities: extremities normal to inspection Skin: no rashes, warm and dry Neurologic: Unable to follow commands. Lymphatic: no cervical lymphadenopathy Results & Data Results & Data ([facility]) Vital Signs (Past 12 Hours) Vital Signs Temp Pulse Resp BP Pulse Ox 07/17/20 05:11 98.2 F 44 L 25 H 136/69 90 07/17/20 04:52 55 L 26 H 93 07/17/20 04:11 98.2 F 45 L 25 H 135/73 92 07/17/20 03:11 98.2 F 48 L 25 H 157/80 H 92 07/17/20 02:20 43 L 25 H 93 07/17/20 02:11 98.2 F 43 L 25 H 143/74 H 94 07/17/20 01:11 98.2 F 46 L 25 H 136/72 93 07/17/20 00:11 98.4 F 48 L 25 H 134/69 90 07/16/20 23:11 98.6 F 59 L 25 H 129/66 90 07/16/20 22:40 44 L 25 H 94 07/16/20 22:11 98.8 F 43 L 25 H 140/74 94 07/16/20 21:11 98.8 F 44 L 25 H 139/76 93 I reviewed the vital signs, labs and imaging Coding Level of Care Code 42492 Subseq Hosp Care Lvl 3 Diagnoses Acute hypoxemic respiratory failure J96.01 Pneumonia due to COVID-19 virus U07.1; J12.82 Hypervolemia E87.70 Morbid obesity due to excess calories E66.01
[2020-07-17] MEDS ORDERED: FUROSEMIDE 40 MG in SYRINGE 0 ML IV SCH (09:00)
[2020-07-17] MEDS: POLYETHYLENE (MIRALAX) 17 GM PACK PO SCH (10:49)
[2020-07-17] MEDS: PANTOprazole 40 MG in SYRINGE 0 ML IV SCH (10:49)
[2020-07-17] MEDS: PEPTAMEN INTENSE VHP 1.0 CAL 1,000 ML BAG OG SCH (12:50)
[2020-07-17] MEDS: MIDAZOLAM HCL 125 MG/250 ML BAG IV SCH (23:44)
[2020-07-18] MEDS: INSULIN ASPART 100 UNITS/ML 3 ML PEN SC SCH ×4 (00:16→18:20)
[2020-07-18] MEDS: MIDAZOLAM HCL 125 MG/250 ML BAG IV SCH ×2 (01:09→01:10)
[2020-07-18] MEDS: fentaNYL DRIP 1,250 MCG/250 ML BAG IV SCH ×5 (01:10→21:32)
[2020-07-18 05:18] LABS: Hemoglobin 13.8 g/dL (14.0-18.0); Mean Corpuscular Hemoglobin 31.6 pg (25-34); Mean Corpuscular Hgb Conc 32.9 g/dL (32-36); Mean Corpuscular Volume 96.1 fL (80-100); Platelet Count 218 K/uL (130-400); RDW Coefficient of Variation 13.6 % (11.5-14.5); RDW Standard Deviation 48.1 fL (36.4-46.3); Red Blood Count 4.37 M/uL (4.7-6.1); White Blood Count 15.16 K/uL (4.8-10.8)
[2020-07-18 05:22] LABS: iSTAT Art Bld Gas pCO2 Correct 62 mmHg (35-46); iSTAT Art Bld Gas pH Corrected 7.341 (7.35-7.45); iSTAT Arterial Blood Gas HCO3 34 meg/L (19-24); iSTAT Arterial Blood Gas pCO2 62 mmHg (35-46); iSTAT Arterial Blood Gas pH 7.34 (7.35-7.45); iSTAT Arterial Blood Gas pO2 67 mmHg (80-95); iSTAT Arterial Blood Gas pO2 C 68; iSTAT Carbon Dioxide 35 mmol/L (24-31); iSTAT Hematocrit 40 % (42-52); iSTAT Hemoglobin 13.6 g/dl (14.0-18.0); iSTAT Potassium 3.8 mmol/L (3.3-5.0); iSTAT Site Art Line; iSTAT Sodium 136 mmol/L (135-144)
[2020-07-18 05:40] LABS: Basophils # (auto) 0.03 K/uL (0-0.2); Basophils % (auto) 0.2 %; Eosinophils # (auto) 0.01 K/uL (0-0.5); Eosinophils % (auto) 0.1 %; Immature Granulocytes # (auto) 1.01 K/uL (0.00-0.02); Immature Granulocytes % (auto) 6.7 %; Lymphocytes # (auto) 1.76 K/uL (1.2-3.4); Lymphocytes % (auto) 11.6 %; Monocytes % (auto) 3.3 %; Neutrophils # (auto) 11.85 K/uL (1.4-6.5); Neutrophils % (auto) 78.1 %; RBC Morphology Unremarkable
[2020-07-18 05:43] LABS: Albumin Level 2.2 gm/dl (3.4-5.0); BUN Creatinine Ratio 48.8 (10-20); Calcium 8.8 mg/dl (8.5-10.1); Creatinine Clr Calc Pharmacy 93.9 ml/min; Est GFR (African American) 89.9; Est GFR (Non-African American) 77.5; Magnesium 2.2 mg/dl (1.8-2.4)
[2020-07-18 05:45] LABS: Albumin Globulin Ratio 0.5 (0.9-2); Bilirubin,Total 0.5 mg/dl (0.2-1); Globulin 4.6 gm/dl (2.5-4.0); Phosphorus 2.6 mg/dl (2.5-4.9); Total Protein 6.8 gm/dl (6.4-8.2)
[2020-07-18] MEDS ORDERED: ROCURONIUM BROMIDE 10 MG/ML 5 ML VIAL IV ONE (05:47)
[2020-07-18] MEDS: ICU ELECTROLYTE REPLACEMENT PROTOCOL SCH (05:49)
[2020-07-18] MEDS ORDERED: STAT IV Infusion **Titration per Protocol STA (07:31)
[2020-07-18] MEDS ORDERED: PROPOFOL BOLUS FROM BAG IV PRN (07:31)
[2020-07-18] MEDS: propofoL 1,000 MG/100 ML VIAL IV SCH ×4 (07:59→20:45)
[2020-07-18] MEDS: ASPIRIN 81 MG CHEW PO SCH (08:03)
[2020-07-18] MEDS: POLYETHYLENE (MIRALAX) 17 GM PACK PO SCH (08:03)
[2020-07-18] MEDS: ENOXAPARIN INJ 40 MG/0.4 ML SYR SQ SCH ×2 (08:03→20:45)
[2020-07-18] MEDS: ATORVASTATIN 40 MG TAB PO SCH (08:03)
--- NOTE | 2020-07-18 08:17 | XRay Report ---
XR chest 1V portable HISTORY: Respiratory failure. COMPARISON: Chest 07/17/2020. FINDINGS: Endotracheal tube terminates 5.6 cm from the laverne. Nasogastric tube terminates below the diaphragm. The tip is not included on the study. Left subclavian central venous catheter terminates a t the brachiocephalic/SVC junction. No pneumothorax. No pleural effusions. Interstitial thickening an d bilateral airspace opacities are again noted. This has slightly improved in the interval. Calcified granuloma within the left midlung zone. IMPRESSION: 1. Satisfactory support line placement. 2. Slight improvement in the bilateral airspace opacities. ACT 112: Negative or not required by law. Electronically signed by: Gwyn Shaw M.D. 07/18/2020 8:15 AM
--- NOTE | 2020-07-18 08:58 | Critical Care Progress Note ---
Date of Service July 18, 2020 Assessment & Plan (1) Acute hypoxemic respiratory failure: (2) Pneumonia due to COVID-19 virus: Impression: 65-year-old male with morbid obesity and ARDS secondary to COVID-19 pneumonia. He is failed conservative measures with oxygen and BiPAP and intubation mechanical ventilation were instituted Recommendations: 1. Neurologic: We are discontinuing patient's Versed and starting the patient on propofol. Continue to wean fentanyl as able. We will check a triglyceride level tomorrow. Goal RASS of -2. 2. Pulmonary: Severe ARDS secondary to COVID-19 pneumonia. Day #8 mechanical ventilation. Continue ARDSNET protocol. Continue with the DEXA ARDS protocol. Family has indicated that the patient would not want to tracheostomy. 3. Cardiovascular: History of coronary disease. He hemodynamically stable c urrently. History of CARSON, continue ASA. Continue high-dose statin given history of hyperlipidemia. 4. Renal: No current issues. Continue electrolyte replacement per ICU protocol. Trend urine output. 40 mg BID lasix. Replace electrolytes as needed. Continue acetazolamide for 2 more doses today. Bicarbonate is trending downward. 5. GI: No current issues. Continue PPI. Currently tolerating trophic feeds. LFTs are stable. 6. ID: Completed 7 days worth of treatment for a urinary tract infection with Rocephin. PCT was negative today. 7. Endocrine: Glycemic control per protocol. 8. Heme-onc: No current issues. DVT prophylaxis with Lovenox. Patient's overall prognosis remains guarded at this point time. Patient's daughter was updated over the phone. (3) Hypervolemia: (4) Morbid obesity due to excess calories: Admission and Anticipated Discharge Date Admission Date: July 08, 2020 Subjective Patient continues to be heavily sedated. He is unresponsive to commands. He is currently on Versed and fentanyl. Overnight he had ventilator dyssynchrony and desaturations requiring a PEEP of 20 on the ventilator and an increased FiO2. Today, his PEEP is down to 16 and FiO2 of 70%. He is saturating 92 to 95%. Review of Systems Review of Systems: Unobtainable due to endotracheal tube and Unobtainable due to reduced consciousness Physical Exam Constitutional: + obese and + mechanically ventilated Neck: trachea midline, no thyromegaly Respiratory: normal respiratory effort, lungs clear to auscultation Cardiovascular: RRR, no murmur, no edema Gastrointestinal (Abdomen): normal bowel sounds, soft, nontender, no hepatosplenomegaly Musculoskeletal: Extremities: extremities normal to inspection Skin: no rashes, warm and dry Neurologic: Unable to follow commands. Lymphatic: no cervical lymphadenopathy Results & Data Results & Data ([facility]) Vital Signs (Past 12 Hours) Vital Signs Temp Pulse Resp BP Pulse Ox 07/18/20 07:26 65 07/18/20 06:00 99.1 F 65 91 07/18/20 05:11 99.0 F 67 134/83 88 L 07/18/20 04:35 64 27 H 84 L 07/18/20 04:11 99.1 F 63 114/70 85 L 07/18/20 03:11 99.0 F 59 L 124/70 91 07/18/20 02:11 98.8 F 62 120/77 94 07/18/20 01:56 63 26 H 91 07/18/20 01:11 98.6 F 65 124/76 89 L 07/18/20 00:23 57 L 07/18/20 00:11 98.6 F 67 89 L 07/17/20 23:11 98.8 F 58 L 121/75 91 07/17/20 23:10 57 L 27 H 91 07/17/20 22:11 98.6 F 61 159/82 H 92 07/17/20 22:00 98.6 F 56 L 91 07/17/20 21:11 98.6 F 60 127/75 90 I reviewed the vital signs, labs and imaging. Coding Level of Care Code 79324 Subseq Hosp Care Lvl 3 Diagnoses Acute hypoxemic respiratory failure J96.01 Pneumonia due to COVID-19 virus U07.1; J12.82 Hypervolemia E87.70 Morbid obesity due to excess calories E66.01
[2020-07-18] MEDS: FUROSEMIDE 40 MG in SYRINGE 0 ML IV SCH ×2 (10:20→20:45)
[2020-07-18] MEDS: PANTOprazole 40 MG in SYRINGE 0 ML IV SCH (10:21)
[2020-07-18] MEDS: acetaZOLAMIDE 250 MG TAB PO SCH ×2 (10:21→20:45)
[2020-07-18] MEDS: dexAMETHasone 20 MG in DEXTROSE 5% 25 ML IV SCH (10:21)
[2020-07-18 11:00] LABS: BUN Creatinine Ratio 43.4 (10-20); Calcium 8.8 mg/dl (8.5-10.1); Creatinine Clr Calc Pharmacy 93.8 ml/min; Est GFR (Non-African American) 78.5; Potassium 3.8 mmol/L (3.5-5.1)
[2020-07-18] MEDS ORDERED: POTASSIUM CHLORIDE 20 MEQ/15 ML UDC NG ONE (13:45)
[2020-07-18] MEDS: PEPTAMEN INTENSE VHP 1.0 CAL 1,000 ML BAG OG SCH (14:39)
--- NOTE | 2020-07-18 23:05 | Hospitalist Progress Note ---
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 Had difficulty with tolerating Vapotherm high flow nasal cannula and was not able to maintain pulse ox greater than 88% on max settings of high flow along with 15 L nonrebreather mask over his mouth Mentation began to worsen and he became hypercapnic as well on the morning of 07/11, also tachypneic Placed on trial of BiPAP and failed Chest x-ray and overall picture consistent with ARDS Transferred to ICU and was intubated and is mechanically ventilated as of the a.m. of 07/11 Remains intubated,sedated, paralyzed. FiO2 requirement is still 50% -Appreciate shot dropper management -Continue dexamethasone 6 mg IV once daily x10-day course -Continue albuterol -He is outside the range for giving remdesivir or convalescent plasma as he is over 1 week out from diagnosis -Initially was given IV azithromycin but procalcitonin negative and no leukocytosis-this was discontinued -started having fevers on 07/11 and finally defervesced on 07/14 -sputum culture with moderate normal petra -BCxs from admission NGTD, repeat BCxs 07/13 no growth to date (2) Acute hypoxemic respiratory failure: As noted above severe ARDS, requiring neuromuscular blockade guarded prognosis Mechanical ventilation as above family does not want tracheostomy prognosis is guarded (3) Sepsis: Sepsis in setting of COVID19 pneumonia with septic shock Now weaned off levophed on 07/15 With fevers developing on 07/10 possibly due to viral PNA, now resolved since 07/13 now with low grade temperatures again Treatment as above -continue ceftriaxone for UTI x7-day course -follow repeat BCxs-no growth to date Sputum culture moderate normal petra (4) Acute kidney injury: Creatinine 2.38 upon admission, with recent 1.36 TOE [employer]ING [employer]ER Has improved to 0.9 Initially given IV fluids, but later required furosemide 40 mg IV due to worsening hypoxia Continue to hold telmisartan/HCTZ and diclofenac Received another dose of IV Lasix 07/11 Follow CMP Follow urine output Placed Alicia catheter Lasix to keep volume off (5) Elevated troponin: likely secondary to myocardial demand ischemia Was minimally elevated at 0.035/0.019/0.02 ECG without ischemic changes (6) UTI (urinary tract infection): Urinalysis abnormal He denies symptoms but has had UTIs in the past Urine culture growing E. coli resistant to ampicillin, Unasyn, and Bactrim, but sensitive to ceftriaxone -Continue ceftriaxone 2 g IV every 24 hours x7 day course-last day of treatment today (7) Elevated transaminase level: AST and ALT were up to 99 and 74, respectively, and now trending down towards normal This is secondary to Covid-19 pneumonia Follow CMP (8) Anxiety: On lorazepam 1 mg 3 times daily at home Now receiving Versed as needed while ventilated (9) Hypokalemia: replaced and now resolved Follow BMP, magnesium (10) Hypertension: Blood pressures were low, requiring pressor but now weaned off Levophed Holding home telmisartan/HCT for acute kidney injury Metoprolol on hold as well (11) Osteoarthritis: Hold diclofenac due to acute kidney injury (12) CAD (coronary artery disease), [place] coronary artery: With a history of coronary stent Troponin minimally elevated and stable x2 most likely secondary to myocardial demand ischemia from profound hypoxia -continue aspirin 81 mg daily given presence of stent -continue statin -holding metoprolol succinate 50 mg daily for hypotension (13) Hyperlipidemia: Continue atorvastatin 80 mg every morning (14) DVT prophylaxis: Lovenox 40 mg SQ every 12 FEN-no IV fluids other than medications, on tube feeds at 10 mL's per hour when not proned Liizn-L-iaun, central venous catheter, Alicia catheter GI prophylaxis-IV Protonix Disposition-continued stay in ICU, prognosis remains guarded Full code Admission and Anticipated Discharge Date Admission Date: July 08, 2020 Subjective patient is sedated on ventilator low grade temperatures ICU managing, still unable to extubate Review of Systems Review of Systems: Unobtainable due to endotracheal tube and Unobtainable due to reduced consciousness Physical Exam Constitutional: well developed, well nourished and + mechanically ventilated; no acute distress Respiratory: + tachypneic; no respiratory distress Auscultation: lungs clear to auscultation bilaterally Cardiovascular: RRR, no murmur, no edema Gastrointestinal (Abdomen): normal bowel sounds, soft, nontender, no hepatos plenomegaly Musculoskeletal: Head/Neck/Chest: normocephalic, head atraumatic and neck supple Extremities: extremities normal to inspection; no cyanosis, no clubbing and no petechiae Skin: no rashes, warm and dry Neurologic: CN's II-XI intact bilaterally and + obtunded; no focal motor deficits Results & Data Results & Data ([facility]) Vital Signs (Past 12 Hours) Vital Signs Temp Pulse Resp BP Pulse Ox 07/18/20 19:57 65 27 H 90 07/18/20 19:11 37.7 C H 56 L 133/80 94 07/18/20 19:00 37.7 C H 58 L 94 07/18/20 18:11 37.7 C H 56 L 130/81 95 07/18/20 18:00 37.7 C H 56 L 95 07/18/20 17:11 37.7 C H 59 L 132/79 93 07/18/20 17:00 37.7 C H 62 91 07/18/20 16:38 28 H 07/18/20 16:11 37.6 C H 59 L 136/79 90 07/18/20 16:00 37.6 C H 62 90 07/18/20 15:11 37.6 C H 61 121/77 95 07/18/20 15:00 37.6 C H 62 95 07/18/20 14:11 37.6 C H 64 114/80 93 07/18/20 14:00 37.6 C H 65 92 07/18/20 13:11 37.5 C 68 120/76 90 07/18/20 13:00 37.5 C 68 90 07/18/20 12:11 37.3 C 68 121/75 87 L 07/18/20 12:00 72 89 L 07/18/20 11:50 71 29 H 89 L 07/18/20 11:11 37.7 C H 64 123/74 90 Laboratory Results Laboratory Results - last 24 hr 07/17/20 07/18/20 07/18/20 23:49 05:05 05:05 WBC 15.16 H RBC 4.37 L Hgb 13.8 L POC Hgb Hct 42.0 POC Hct MCV 96.1 MCH 31.6 MCHC 32.9 RDW Std Deviation 48.1 H RDW Coeff of Fernanda 13.6 Plt Count 218 MPV 10.0 Immature Gran % (Auto) 6.7 Neut % (Auto) 78.1 Lymph % (Auto) 11.6 [place] % (Auto) 3.3 Eos % (Auto) 0.1 Baso % (Auto) 0.2 Neut # (Auto) 11.85 H Lymph # (Auto) 1.76 [place] # (Auto) 0.50 Eos # (Auto) 0.01 Baso # (Auto) 0.03 Immature Gran # (Auto) 1.01 H RBC Morphology Unremarkable Sample Site POC pH POC pCO2 POC pO2 POC HCO3 POC Total CO2 POC Base Excess ABG pH (Temp Correct) ABG pCO2 (Temp Corrct POC ABG pO2 at Pt Temp POC ABG O2 Sat Tavo Test O2 Delivery Device POC O2 Rate Minute Ventilation Tidal Volume PEEP POC Sodium Sodium 140 POC Potassium Potassium 4.0 Chloride 102 Carbon Dioxide 31 Anion Gap 7.0 BUN 49 H Creatinine 1.00 Est Cr Clr Drug Dosing 93.9 Est GFR ( Amer) 89.9 Est GFR (Non-Af Amer) 77.5 BUN/Creatinine Ratio 48.8 H Glucose 121 H POC Glucose 150 H Calcium 8.8 Phosphorus 2.6 Magnesium 2.2 Total Bilirubin 0.5 AST 46 H ALT 52 Alkaline Phosphatase 37 L Total Protein 6.8 Albumin 2.2 L Globulin 4.6 H Albumin/Globulin Ratio 0.5 L 07/18/20 07/18/20 07/18/20 05:07 05:09 10:26 WBC RBC Hgb POC Hgb 13.6 L Hct POC Hct 40 L MCV MCH MCHC RDW Std Deviation RDW Coeff of Fernanda Plt Count MPV Immature Gran % (Auto) Neut % (Auto) Lymph % (Auto) [place] % (Auto) Eos % (Auto) Baso % (Auto) Neut # (Auto) Lymph # (Auto) [place] # (Auto) Eos # (Auto) Baso # (Auto) Immature Gran # (Auto) RBC Morphology Sample Site Art Line POC pH 7.34 L POC pCO2 62 H POC pO2 67 L POC HCO3 34 H POC Total CO2 35 H POC Base Excess 8.0 H ABG pH (Temp Correct) 7.341 L ABG pCO2 (Temp Corrct 62 H POC ABG pO2 at Pt Temp 68 POC ABG O2 Sat 91.0 Tavo Test NA O2 Delivery Device Ventilator POC O2 Rate 25 Minute Ventilation 9.3 Tidal Volume 385 PEEP 20 POC Sodium 136 Sodium 138 POC Potassium 3.8 Potassium 3.8 Chloride 102 Carbon Dioxide 30 Anion Gap 6.0 BUN 43 H Creatinine 0.99 Est Cr Clr Drug Dosing 93.8 Est GFR ( Amer) 91.0 Est GFR (Non-Af Amer) 78.5 BUN/Creatinine Ratio 43.4 H Glucose 122 H POC Glucose 121 H Calcium 8.8 Phosphorus Magnesium Total Bilirubin AST ALT Alkaline Phosphatase Total Protein Albumin Globulin Albumin/Globulin Ratio 07/18/20 07/18/20 11:47 18:14 WBC RBC Hgb POC Hgb Hct POC Hct MCV MCH MCHC RDW Std Deviation RDW Coeff of Fernanda Plt Count MPV Immature Gran % (Auto) Neut % (Auto) Lymph % (Auto) [place] % (Auto) Eos % (Auto) Baso % (Auto) Neut # (Auto) Lymph # (Auto) [place] # (Auto) Eos # (Auto) Baso # (Auto) Immature Gran # (Auto) RBC Morphology Sample Site POC pH POC pCO2 POC pO2 POC HCO3 POC Total CO2 POC Base Excess ABG pH (Temp Correct) ABG pCO2 (Temp Corrct POC ABG pO2 at Pt Temp POC ABG O2 Sat Tavo Test O2 Delivery Device POC O2 Rate Minute Ventilation Tidal Volume PEEP POC Sodium Sodium POC Potassium Potassium Chloride Carbon Dioxide Anion Gap BUN Creatinine Est Cr Clr Drug Dosing Est GFR ( Amer) Est GFR (Non-Af Amer) BUN/Creatinine Ratio Glucose POC Glucose 112 H 168 H Calcium Phosphorus Magnesium Total Bilirubin AST ALT Alkaline Phosphatase Total Protein Albumin Globulin Albumin/Globulin Ratio Medications Administered Current Inpatient Medications Acetaminophen (Acetaminophen Susp 325 Mg/10.15 Ml Udc) 650 mg OG Q6H PRN PRN Reason: Fever Stop: 08/12/20 03:28 Last Admin: 07/15/20 07:16 Dose: 650 mg Documented by: Albuterol (Albut/Ipratrop 3mg/0.5mg Neb 3 Ml Vial) 3 ml NEB Q4R PRN PRN Reason: Shortness Of Breath Or Wheezing Stop: 08/08/20 08:46 Aspirin (Aspirin 81 Mg Chew) [facility] Stop: 08/11/20 09:59 Last Admin: 07/18/20 08:03 Dose: 81 mg Documented by: Atorvastatin Calcium (Atorvastatin 40 Mg Tab) [facility] Stop: 08/08/20 08:59 Last Admin: 07/18/20 08:03 Dose: 80 mg Documented by: Dextrose (Dextrose 50% 50 Ml Syringe) 25 - 50 ml IV UD PRN; Protocol PRN Reason: Hypoglycemia Protocol Stop: 08/11/20 10:59 Enoxaparin Sodium (Enoxaparin Inj 40 Mg/0.4 Ml Syr) 40 mg SQ Q12 [facility] Stop: 08/09/20 18:59 Last Admin: 07/18/20 20:45 Dose: 40 mg Documented by: Fentanyl Citrate (Fentanyl Bolus From Bag) 50 mcg IV Q60M PRN PRN Reason: Pain or Agitation Stop: 07/25/20 14:07 Last Admin: 07/17/20 05:57 Dose: 50 mcg Documented by: Glucagon (Glucagon For Inj 1 Mg Vial) 1 mg IM UD PRN; Protocol PRN Reason: Hypoglycemia Protocol Stop: 08/11/20 10:59 Glucose (Glucose 40% Gel 15 Gm Tube) 15 - 30 gm PO UD PRN; Protocol PRN Reason: Hypoglycemia Protocol Stop: 08/11/20 10:59 Glucose (Glucose 10 Tabs/Tube) 4 - 8 tabs PO UD PRN; Protocol PRN Reason: Hypoglycemia Protocol Stop: 08/11/20 10:59 Heparin Sodium (Beef Lung) (Heparin 10 Unit/Ml 5 Ml Flush) 5 ml FLUSH PRN PRN PRN Reason: Flush Stop: 08/12/20 22:46 Fentanyl Citrate (Fentanyl Drip) 1,250 mcg in 250 mls @ 30 mls/hr IV .Q8H20M PIERRE; Protocol Stop: 07/25/20 14:14 Last Admin: 07/18/20 21:32 Dose: Not Given Documented by: Pantoprazole Sodium 40 mg/ (Syringe) 10 mls @ 5 mls/min IV DAILY@1100 [facility] Stop: 08/11/20 10:59 Last Admin: 07/18/20 10:21 Dose: 5 mls/min Documented by: Dexamethasone Sodium Phosphate (10 mg/ Syringe) 2.5 mls @ 1 mls/min IV DAILY [facility] Stop: 07/27/20 08:59 Dexamethasone Sodium Phosphate (20 mg/ Dextrose) 30 mls @ 60 mls/hr IV DAILY [facility] Stop: 07/21/20 09:29 Last Infusion: 07/18/20 12:02 Dose: Infused Documented by: Furosemide 40 mg/ Syringe 4 mls @ 4 mls/min IV BID [facility] Stop: 08/16/20 08:59 Last Admin: 07/18/20 20:45 Dose: 4 mls/min Documented by: Propofol (Diprivan) 1,000 mg in 100 mls @ 18.945 mls/hr IV .Q5H17M [facility]; Protocol Stop: 07/21/20 07:44 Last Admin: 07/18/20 20:45 Dose: 30 mcg/kg/min, 22.7 mls/hr Documented by: Insulin Aspart (Insulin Aspart 100 Units/Ml 3 Ml Pen) 0 units SC Q6 [facility] Stop: 08/11/20 11:59 Last Admin: 07/18/20 18:20 Dose: 1 units Documented by: Midazolam HCl (Midazolam Bolus From Bag) 2 mg IV Q60M PRN PRN Reason: Sedation Stop: 08/10/20 14:07 Miscellaneous (Carbohydrates For Hypoglycemia ) 15 - 30 gm PO UD PRN PRN Reason: Hypoglycemia Treatment Stop: 08/11/20 10:59 Multi-Ingredient Cream (Artificial Tears Op Oint 3.5 Gm Tube) 1 appln OP Q4H PRN PRN Reason: Anesthesia Stop: 08/10/20 23:48 Last Admin: 07/14/20 08:00 Dose: 1 appln Documented by: Nutritional Formula (Peptamen Intense Vhp 1.0 [place] 1,000 Ml Bag) 1,000 ml OG DAILY [facility]; Protocol Stop: 08/11/20 10:59 Last Admin: 07/18/20 14:39 Dose: 1,000 ml Documented by: Polyethylene Glycol (Polyethylene (Miralax) 17 Gm Pack) 17 gm PO QAM [facility] Stop: 08/16/20 09:59 Last Admin: 07/18/20 08:03 Dose: 17 gm Documented by: Propofol (Propofol Bolus From Bag) 20 mg IV Q5M PRN PRN Reason: Sedation Stop: 07/21/20 07:30 PG Care Time/CCT Total # of Minutes Spent Total Time Spent with Patient: Total time spent is greater than 50% in coordination of care (as documented) at patient's floor/unit and/or counseling patient: Coding Level of Care Code 26057 Subseq Hosp Care Lvl 1 Diagnoses Pneumonia due to COVID-19 virus U07.1; J12.82 Acute hypoxemic respiratory failure J96.01 Sepsis A41.9 Acute kidney injury N17.9 Elevated troponin R77.8 UTI (urinary tract infection) N39.0 Elevated transaminase level R74.01 Anxiety F41.9 Hypokalemia E87.6 Hypertension I10 Osteoarthritis M19.90 CAD (coronary artery disease), [place] coronary artery I25.10 Hyperlipidemia E78.5 DVT prophylaxis Z29.9
[2020-07-19] MEDS: INSULIN ASPART 100 UNITS/ML 3 ML PEN SC SCH ×6 (00:45→23:42)
[2020-07-19] MEDS: propofoL 1,000 MG/100 ML VIAL IV SCH ×8 (00:54→23:31)
[2020-07-19 03:39] LABS: iSTAT Art Bld Gas pCO2 Correct 59 mmHg (35-46); iSTAT Art Bld Gas pH Corrected 7.357 (7.35-7.45); iSTAT Arterial Blood Gas HCO3 33 meg/L (19-24); iSTAT Arterial Blood Gas pCO2 57 mmHg (35-46); iSTAT Arterial Blood Gas pH 7.37 (7.35-7.45); iSTAT Arterial Blood Gas pO2 68 mmHg (80-95); iSTAT Arterial Blood Gas pO2 C 71; iSTAT Carbon Dioxide 34 mmol/L (24-31); iSTAT Hematocrit 38 % (42-52); iSTAT Hemoglobin 12.9 g/dl (14.0-18.0); iSTAT Potassium 3.9 mmol/L (3.3-5.0); iSTAT Site Art Line; iSTAT Sodium 136 mmol/L (135-144)
[2020-07-19 04:49] LABS: Hematocrit (blood only) 39.7 % (42-52); Mean Corpuscular Hemoglobin 31.5 pg (25-34); Mean Corpuscular Hgb Conc 32.7 g/dL (32-36); Mean Corpuscular Volume 96.1 fL (80-100); Mean Platelet Volume 10.3 fL (7.4-10.4); Platelet Count 193 K/uL (130-400); RDW Coefficient of Variation 13.6 % (11.5-14.5); RDW Standard Deviation 48.2 fL (36.4-46.3); Red Blood Count 4.13 M/uL (4.7-6.1); White Blood Count 15.92 K/uL (4.8-10.8)
[2020-07-19] MEDS: fentaNYL DRIP 1,250 MCG/250 ML BAG IV SCH ×4 (05:11→22:43)
[2020-07-19 05:16] LABS: Albumin Level 2.2 gm/dl (3.4-5.0); BUN Creatinine Ratio 51.1 (10-20); Calcium 8.4 mg/dl (8.5-10.1); Creatinine Clr Calc Pharmacy 96.7 ml/min; Est GFR (African American) 94.4; Est GFR (Non-African American) 81.5; Magnesium 2.3 mg/dl (1.8-2.4); Potassium 3.8 mmol/L (3.5-5.1)
[2020-07-19 05:19] LABS: Albumin Globulin Ratio 0.5 (0.9-2); Bilirubin,Total 0.7 mg/dl (0.2-1); Globulin 4.4 gm/dl (2.5-4.0); Phosphorus 2.8 mg/dl (2.5-4.9); Total Protein 6.6 gm/dl (6.4-8.2)
[2020-07-19 05:40] LABS: Basophils # (auto) 0.03 K/uL (0-0.2); Basophils % (auto) 0.2 %; Eosinophils # (auto) 0.02 K/uL (0-0.5); Eosinophils % (auto) 0.1 %; Immature Granulocytes # (auto) 1.14 K/uL (0.00-0.02); Immature Granulocytes % (auto) 7.2 %; Lymphocytes # (auto) 1.97 K/uL (1.2-3.4); Lymphocytes % (auto) 12.4 %; Monocytes # (auto) 0.13 K/uL (0.11-0.59); Monocytes % (auto) 0.8 %; Neutrophils # (auto) 12.63 K/uL (1.4-6.5); Neutrophils % (auto) 79.3 %
[2020-07-19] MEDS: ATORVASTATIN 40 MG TAB PO SCH (07:54)
[2020-07-19] MEDS: POLYETHYLENE (MIRALAX) 17 GM PACK PO SCH (07:55)
[2020-07-19] MEDS: ASPIRIN 81 MG CHEW PO SCH (07:55)
[2020-07-19] MEDS: ENOXAPARIN INJ 40 MG/0.4 ML SYR SQ SCH ×2 (07:55→20:21)
[2020-07-19] MEDS: dexAMETHasone 20 MG in DEXTROSE 5% 25 ML IV SCH (07:56)
[2020-07-19] MEDS: FUROSEMIDE 40 MG in SYRINGE 0 ML IV SCH ×2 (07:56→20:24)
--- NOTE | 2020-07-19 08:05 | XRay Report ---
XR chest 1V portable HISTORY: 65 years-old Male resp failure acute respiratory failure COMPARISON: Chest radiograph 07/18/2020 TECHNIQUE: Portable AP view of the chest FINDINGS: Cardiac silhouette is enlarged. Calcified plaque of the thoracic aorta. Left subclavian central venou s catheter distal tip terminates in the expected location of the brachiocephalic SVC confluence, unch anged. Endotracheal tube overlies the midline, 5.6 cm superior to the laverne. Enteric tube courses be low the diaphragm with distal tip outside the [id number]. No pneumothorax. Trace pleural effusions . Interstitial coarsening with multifocal bilateral airspace opacities redemonstrated and appear stab le to slightly progressed. Degenerative changes of the shoulders and spine. IMPRESSION: 1. Lines and tubes as above. 2. Stable to slight progression of the bilateral pulmonary opacities. ACT 112: Negative or not required by law. The above report was generated using voice recognition software. It may contain grammatical, syntax o r spelling errors. Electronically signed by: Gary Treadwell M.D. 07/19/2020 8:03 AM
[2020-07-19] MEDS: ARTIFICIAL TEARS OP OINT 3.5 GM TUBE OP PRN (08:17)
--- NOTE | 2020-07-19 08:51 | Critical Care Progress Note ---
Date of Service July 19, 2020 Assessment & Plan (1) Acute hypoxemic respiratory failure: (2) Pneumonia due to COVID-19 virus: Impression: 65-year-old male with morbid obesity and ARDS secondary to COVID-19 pneumonia. He is failed conservative measures with oxygen and BiPAP and intubation mechanical ventilation were instituted Recommendations: 1. Neurologic: Continue propofol and fentanyl. We will consider adding Precedex later today. Triglyceride levels are elevated. We are going to decrease propofol. Goal RASS of -2. 2. Pulmonary: Severe ARDS secondary to COVID-19 pneumonia. Day #9 mechanical ventilation. Continue ARDSNET protocol. Continue with the DEXA ARDS protocol. Family has indicated that the patient would not want to tracheostomy. Plateau pressures are increased today. I decreased his tidal volume to 350. I increa sed his PEEP from 16 to 18 cm H2O. We will obtain an ABG in an hour. 3. Cardiovascular: History of coronary disease. He hemodynamically stable currently. History of CARSON, continue ASA. Continue high-dose statin given history of hyperlipidemia. 4. Renal: No current issues. Continue electrolyte replacement per ICU protocol. Trend urine output. 40 mg BID lasix. We will give an additional dose of 40 mg IV Lasix. Replace electrolytes as needed. Completed 4 doses of acetazolamide 07/19/2020. 5. GI: No current issues. Continue PPI. Currently tolerating trophic feeds. LFTs are stable. 6. ID: Completed 7 days worth of treatment for a urinary tract infection with Rocephin. PCT was negative today. White count has elevated slightly possibly related to high-dose Decadron. We will continue to keep an eye on his white count and fever curve. 7. Endocrine: Glycemic control per protocol. 8. Heme-onc: No current issues. DVT prophylaxis with Lovenox. Patient's overall prognosis remains guarded at this point time. (3) Hypervolemia: (4) Morbid obesity due to excess calories: Admission and Anticipated Discharge Date Admission Date: July 08, 2020 Review of Systems Review of Systems: Unobtainable due to endotracheal tube and Unobtainable due to reduced consciousness Physical Exam Constitutional: + obese and + mechanically ventilated Neck: trachea midline, no thyromegaly Respiratory: normal respiratory effort, lungs clear to auscultation Cardiovascular: RRR, no murmur, no edema Gastrointestinal (Abdomen): normal bowel sounds, soft, nontender, no hepatosplenomegaly Musculoskeletal: Extremities: extremities normal to inspection Skin: no rashes, warm and dry Neurologic: Unable to follow commands. Lymphatic: no cervical lymphadenopathy Results & Data Results & Data ([facility]) Vital Signs (Past 12 Hours) Vital Signs Temp Pulse Resp BP Pulse Ox 07/19/20 08:11 99.9 F H 69 150/61 H 85 L 07/19/20 07:20 57 L 28 H 90 07/19/20 07:12 100.0 F H 56 L 120/63 89 L 07/19/20 06:11 100.0 F H 55 L 122/60 91 07/19/20 06:00 100.0 F H 55 L 91 07/19/20 05:12 99.9 F H 55 L 133/64 90 07/19/20 05:00 99.9 F H 56 L 90 07/19/20 04:11 99.7 F H 54 L 125/67 89 L 07/19/20 04:00 99.7 F H 55 L 91 07/19/20 03:28 53 L 26 H 95 07/19/20 03:11 99.5 F 52 L 123/67 92 07/19/20 03:00 99.5 F 55 L 91 07/19/20 02:11 99.5 F 53 L 126/63 90 07/19/20 02:00 99.5 F 56 L 90 07/19/20 01:11 99.5 F 59 L 125/67 88 L 07/19/20 01:00 99.5 F 68 87 L 07/19/20 00:11 99.9 F H 59 L 125/72 91 07/19/20 00:00 99.9 F H 57 L 91 07/18/20 23:59 63 07/18/20 23:17 57 L 26 H 93 07/18/20 23:11 99.9 F H 58 L 127/73 94 07/18/20 23:00 99.9 F H 57 L 94 07/18/20 22:11 99.7 F H 59 L 124/79 94 07/18/20 22:00 99.7 F H 59 L 93 07/18/20 21:11 99.5 F 53 L 148/85 H 94 07/18/20 21:00 99.5 F 53 L 93 I reviewed the vital signs, labs and imaging Coding Level of Care Code 01012 Subseq Hosp Care Lvl 3 Diagnoses Acute hypoxemic respiratory failure J96.01 Pneumonia due to COVID-19 virus U07.1; J12.82 Hypervolemia E87.70 Morbid obesity due to excess calories E66.01
[2020-07-19] MEDS: PEPTAMEN INTENSE VHP 1.0 CAL 1,000 ML BAG OG SCH (09:37)
[2020-07-19] MEDS ORDERED: POTASSIUM CHLORIDE 20 MEQ/15 ML UDC PO STA (09:45)
[2020-07-19] MEDS ORDERED: VECURONIUM BROMIDE 10 MG VIAL IV STA ×2 (09:55→11:12)
[2020-07-19] MEDS ORDERED: VECURONIUM BROMIDE 10 MG VIAL IV ONE (09:59)
[2020-07-19] MEDS: LACTULOSE SYRUP 20 GM/30 ML UDC PO SCH ×3 (10:05→20:20)
[2020-07-19] MEDS ORDERED: STAT IV Infusion **Titration per Protocol STA (10:12)
[2020-07-19] MEDS: ACETAMINOPHEN SUSP 325 MG/10.15 ML UDC OG PRN ×2 (10:43→17:25)
[2020-07-19] MEDS: DEXMEDETOMIDINE HCL 200 MCG in SODIUM CHLORIDE 0.9% 48 ML IV SCH ×4 (11:00→22:56)
[2020-07-19] MEDS: PANTOprazole 40 MG in SYRINGE 0 ML IV SCH (11:27)
[2020-07-19 11:29] LABS: iSTAT Art Bld Gas pCO2 Correct 77 mmHg (35-46); iSTAT Art Bld Gas pH Corrected 7.275 (7.35-7.45); iSTAT Arterial Blood Gas HCO3 35 meg/L (19-24); iSTAT Arterial Blood Gas pCO2 74 mmHg (35-46); iSTAT Arterial Blood Gas pH 7.29 (7.35-7.45); iSTAT Arterial Blood Gas pO2 86 mmHg (80-95); iSTAT Arterial Blood Gas pO2 C 91; iSTAT Carbon Dioxide 38 mmol/L (24-31); iSTAT Hematocrit 45 % (42-52); iSTAT Hemoglobin 15.3 g/dl (14.0-18.0); iSTAT Potassium 4.2 mmol/L (3.3-5.0); iSTAT Site Art Line; iSTAT Sodium 138 mmol/L (135-144)
[2020-07-19] MEDS ORDERED: FUROSEMIDE 40 MG in SYRINGE 0 ML IV ONE (12:00)
[2020-07-19] MEDS ORDERED: VANCOMYCIN CONSULT ACTIVE PRN (12:53)
[2020-07-19] MEDS ORDERED: VANCOMYCIN HCL 2,000 MG in SODIUM CHLORIDE 0.9% 500 ML IV SCH (13:00)
[2020-07-19] MEDS ORDERED: VANCOMYCIN HCL 2,500 MG in SODIUM CHLORIDE 0.9% 500 ML IV ONE (13:30)
[2020-07-19] MEDS: CEFEPIME 2,000 MG in SYRINGE 0 ML IV SCH (13:34)
[2020-07-19 14:01] LABS: BUN Creatinine Ratio 46.7 (10-20); Calcium 8.7 mg/dl (8.5-10.1); Creatinine Clr Calc Pharmacy 82.8 ml/min; Est GFR (African American) 78.4; Est GFR (Non-African American) 67.6; Potassium 4.5 mmol/L (3.5-5.1)
--- NOTE | 2020-07-19 14:19 | Pharmacy Report ---
Pharmacy Abx Dose Short Note - Date of Service July 19, 2020 - Assessment & Plan Assessment 65 year old M receiving vanc/cefepime for treatment of possible VAP. Will use adjusted dosing given BMI of 42. Will schedule level pending MRSA nasal swab result/continuation and renal function. Day # 1 of antimicrobial therapy. Plan Vancomycin * Loading dose: 2500mg X 1 ~1330 * Initiate dose of 1500 mg IV every 12 hours @ 07/20@0200 * Goal trough level : 15 to 20 mcg/mL * Trough or random level ordered for: to be determined Pharmacy will continue to follow and will adjust dose/frequency as necessary. Thank you.
[2020-07-19 14:44] LABS: Appearance Urine Clear (Clear); Bacteria Urine Automated Negative (Negative); Bilirubin Urine Negative (Negative); Blood Urine 1+ (Negative); Color Urine Yellow; Glucose Urine UA Negative (Negative); Ketones Urine Negative (Negative); Leukocyte Esterase Urine Negative (Negative); Nitrite Urine Negative (Negative); Protein Urine Negative (Negative); Specific Gravity Urine 1.025 (1.000-1.030); Urobilinogen Urine Negative (Negative)
--- NOTE | 2020-07-19 15:53 | Hospitalist Progress Note ---
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 Had difficulty with tolerating Vapotherm high flow nasal cannula and was not able to maintain pulse ox greater than 88% on max settings of high flow along with 15 L nonrebreather mask over his mouth Mentation began to worsen and he became hypercapnic as well on the morning of 07/11, also tachypneic Placed on trial of BiPAP and failed Chest x-ray and overall picture consistent with ARDS Transferred to ICU and was intubated and is mechanically ventilated as of the a.m. 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 high dose Decadron at this time -Continue albuterol -He is outside the range for giving remdesivir or convalescent plasma as he is over 1 week out from diagnosis -Initially was given IV azithromycin but procalcitonin negative and no leukoc ytosis-this was discontinued fevers again today (2) Acute hypoxemic respiratory failure: As noted above severe ARDS, following ARDSnet protocol lowered tidal volume to 350, PEEP 18 due to high pressures today guarded prognosis family does not want tracheostomy (3) Sepsis: Sepsis in setting of COVID19 pneumonia with septic shock Now weaned off levophed on 07/15 now with fever 38.1, elevated WBC with decadron monitor closely (4) Acute kidney injury: Creatinine 2.38 upon admission, with recent 1.36 GAME AGENT Has improved to 1.1 giving Lasix 40mg IV today Continue to hold telmisartan/HCTZ and diclofenac Received another dose of IV Lasix 07/11 Follow CMP Follow urine output Placed Alicia catheter (5) Elevated troponin: likely secondary to myocardial demand ischemia Was minimally elevated at 0.035/0.019/0.02 ECG without ischemic changes (6) UTI (urinary tract infection): Urinalysis abnormal He denies symptoms but has had UTIs in the past Urine culture growing E. coli resistant to ampicillin, Unasyn, and Bactrim, but sensitive to ceftriaxone -Continue ceftriaxone 2 g IV every 24 hours x7 day course-last day of treatment today (7) Elevated transaminase level: AST and ALT were up to 99 and 74, respectively, and now trending down towards normal This is secondary to Covid-19 pneumonia Follow CMP (8) Anxiety: On lorazepam 1 mg 3 times daily at home Now receiving Versed as needed while ventilated (9) Hypokalemia: replaced and now resolved Follow BMP, magnesium (10) Hypertension: Blood pressures were low, requiring pressor but now weaned off Levophed Holding home telmisartan/HCT for acute kidney injury Metoprolol on hold as well (11) Osteoarthritis: Hold diclofenac due to acute kidney injury (12) CAD (coronary artery disease), [place] coronary artery: With a history of coronary stent Troponin minimally elevated and stable x2 most likely secondary to myocardial demand ischemia from profound hypoxia -continue aspirin 81 mg daily given presence of stent -continue statin -holding metoprolol succinate 50 mg daily for hypotension (13) Hyperlipidemia: Continue atorvastatin 80 mg every morning (14) DVT prophylaxis: Lovenox 40 mg SQ every 12 FEN-no IV fluids other than medications, on tube feeds at 10 mL's per hour when not proned [id number], central venous catheter, Alicia catheter GI prophylaxis-IV Protonix Disposition-continued stay in ICU, prognosis remains guarded Full code Admission and Anticipated Discharge Date Admission Date: July 08, 2020 Subjective spoke with ICU plateau pressures up today, tidal volume reduced and PEEP increased slightly fever of 38.1 decadron increased, extra Lasix given trying to titrate off Propofol and use Precedex, triglycerides elevated Review of Systems Review of Systems: Unobtainable due to endotracheal tube and Unobtainable due to reduced consciousness Physical Exam Constitutional: well developed, well nourished and + mechanically ventilated; no acute distress Respiratory: + tachypneic; no respiratory distress Auscultation: lungs clear to auscultation bilaterally Cardiovascular: RRR, no murmur, no edema Gastrointestinal (Abdomen): normal bowel sounds, soft, nontender, no hepatosplenomegaly Musculoskeletal: Head/Neck/Chest: normocephalic, head atraumatic and neck supple Extremities: extremities normal to inspection; no cyanosis, no clubbing and no petechiae Skin: no rashes, warm and dry Neurologic: CN's II-XI intact bilaterally and + obtunded; no focal motor de ficits Results & Data Results & Data ([facility]) Vital Signs (Past 12 Hours) Vital Signs Temp Pulse Resp BP Pulse Ox 07/19/20 15:12 38.1 C H 68 122/62 95 07/19/20 14:15 77 29 H 95 07/19/20 14:12 38.1 C H 79 170/99 H 96 07/19/20 13:11 38.0 C H 76 142/81 H 94 07/19/20 12:54 27 H 07/19/20 12:12 37.8 C H 68 113/59 L 91 07/19/20 11:35 37.7 C H 77 166/80 H 91 07/19/20 11:12 37.8 C H 91 H 166/80 H 93 07/19/20 10:30 37.8 C H 82 138/73 89 L 07/19/20 10:27 37.8 C H 100 H 145/94 H 91 07/19/20 10:12 37.8 C H 96 H 186/85 H 94 07/19/20 10:01 95 H 30 H 95 07/19/20 09:11 37.7 C H 69 112/72 85 L 07/19/20 09:00 25 H 07/19/20 08:11 37.7 C H 69 150/61 H 85 L 07/19/20 08:00 70 07/19/20 07:20 57 L 28 H 90 07/19/20 07:12 37.8 C H 56 L 120/63 89 L 07/19/20 06:11 37.8 C H 55 L 122/60 91 07/19/20 06:00 37.8 C H 55 L 91 07/19/20 05:12 37.7 C H 55 L 133/64 90 07/19/20 05:00 37.7 C H 56 L 90 07/19/20 04:11 37.6 C H 54 L 125/67 89 L 07/19/20 04:00 37.6 C H 55 L 91 Laboratory Results Laboratory Results - last 24 hr 07/18/20 07/19/20 07/19/20 18:14 00:54 03:26 WBC RBC Hgb POC Hgb 12.9 L Hct POC Hct 38 L MCV MCH MCHC RDW Std Deviation RDW Coeff of Fernanda Plt Count MPV Immature Gran % (Auto) Neut % (Auto) Lymph % (Auto) [place] % (Auto) Eos % (Auto) Baso % (Auto) Neut # (Auto) Lymph # (Auto) [place] # (Auto) Eos # (Auto) Baso # (Auto) Immature Gran # (Auto) Sample Site Art Line POC pH 7.37 POC pCO2 57 H POC pO2 68 L POC HCO3 33 H POC Total CO2 34 H POC Base Excess 7.0 H ABG pH (Temp Correct) 7.357 ABG pCO2 (Temp Corrct 59 H POC ABG pO2 at Pt Temp 71 POC ABG O2 Sat 92.0 Tavo Test NA O2 Delivery Device Ventilator POC O2 Rate 25 Minute Ventilation 9.6 Tidal Volume 385 PEEP 14 POC Sodium 136 Sodium POC Potassium 3.9 Potassium Chloride Carbon Dioxide Anion Gap BUN Creatinine Est Cr Clr Drug Dosing Est GFR ( Amer) Est GFR (Non-Af Amer) BUN/Creatinine Ratio Glucose POC Glucose 168 H 128 H Calcium Phosphorus Magnesium Total Bilirubin AST ALT Alkaline Phosphatase Total Protein Albumin Globulin Albumin/Globulin Ratio Triglycerides Procalcitonin Urine Color Urine Appearance Urine pH Ur Specific [place] Urine Protein Urine Glucose (UA) Urine Ketones Urine Blood Urine Nitrite Urine Bilirubin Urine Urobilinogen Ur Leukocyte Esterase Urine WBC (Auto) Urine RBC (Auto) U Hyaline Cast (Auto) U Epithel Cells (Auto) Urine Bacteria (Auto) Nasal Screen MRSA (PCR) 07/19/20 07/19/20 07/19/20 04:34 04:34 05:15 WBC 15.92 H RBC 4.13 L Hgb 13.0 L POC Hgb Hct 39.7 L POC Hct MCV 96.1 MCH 31.5 MCHC 32.7 RDW Std Deviation 48.2 H RDW Coeff of Fernanda 13.6 Plt Count 193 MPV 10.3 Immature Gran % (Auto) 7.2 Neut % (Auto) 79.3 Lymph % (Auto) 12.4 [place] % (Auto) 0.8 Eos % (Auto) 0.1 Baso % (Auto) 0.2 Neut # (Auto) 12.63 H Lymph # (Auto) 1.97 [place] # (Auto) 0.13 Eos # (Auto) 0.02 Baso # (Auto) 0.03 Immature Gran # (Auto) 1.14 H Sample Site POC pH POC pCO2 POC pO2 POC HCO3 POC Total CO2 POC Base Excess ABG pH (Temp Correct) ABG pCO2 (Temp Corrct POC ABG pO2 at Pt Temp POC ABG O2 Sat Tavo Test O2 Delivery Device POC O2 Rate Minute Ventilation Tidal Volume PEEP POC Sodium Sodium 139 POC Potassium Potassium 3.8 Chloride 101 Carbon Dioxide 31 Anion Gap 7.0 BUN 49 H Creatinine 0.96 Est Cr Clr Drug Dosing 96.7 Est GFR ( Amer) 94.4 Est GFR (Non-Af Amer) 81.5 BUN/Creatinine Ratio 51.1 H Glucose 138 H POC Glucose 139 H Calcium 8.4 L Phosphorus 2.8 Magnesium 2.3 Total Bilirubin 0.7 AST 48 H ALT 64 Alkaline Phosphatase 35 L Total Protein 6.6 Albumin 2.2 L Globulin 4.4 H Albumin/Globulin Ratio 0.5 L Triglycerides 369 H Procalcitonin Urine Color Urine Appearance Urine pH Ur Specific [place] Urine Protein Urine Glucose (UA) Urine Ketones Urine Blood Urine Nitrite Urine Bilirubin Urine Urobilinogen Ur Leukocyte Esterase Urine WBC (Auto) Urine RBC (Auto) U Hyaline Cast (Auto) U Epithel Cells (Auto) Urine Bacteria (Auto) Nasal Screen MRSA (PCR) 07/19/20 07/19/20 07/19/20 11:04 11:13 13:00 WBC RBC Hgb POC Hgb 15.3 Hct POC Hct 45 MCV MCH MCHC RDW Std Deviation RDW Coeff of Fernanda Plt Count MPV Immature Gran % (Auto) Neut % (Auto) Lymph % (Auto) [place] % (Auto) Eos % (Auto) Baso % (Auto) Neut # (Auto) Lymph # (Auto) [place] # (Auto) Eos # (Auto) Baso # (Auto) Immature Gran # (Auto) Sample Site Art Line POC pH 7.29 L POC pCO2 74 H POC pO2 86 POC HCO3 35 H POC Total CO2 38 H POC Base Excess 9.0 H ABG pH (Temp Correct) 7.275 L ABG pCO2 (Temp Corrct 77 H POC ABG pO2 at Pt Temp 91 POC ABG O2 Sat 95.0 Tavo Test NA O2 Delivery Device Ventilator POC O2 Rate 25 Minute Ventilation Tidal Volume 350 PEEP 18 POC Sodium 138 Sodium POC Potassium 4.2 Potassium Chloride Carbon Dioxide Anion Gap BUN Creatinine Est Cr Clr Drug Dosing Est GFR ( Amer) Est GFR (Non-Af Amer) BUN/Creatinine Ratio Glucose POC Glucose 164 H Calcium Phosphorus Magnesium Total Bilirubin AST ALT Alkaline Phosphatase Total Protein Albumin Globulin Albumin/Globulin Ratio Triglycerides Procalcitonin Urine Color Urine Appearance Urine pH Ur Specific [place] Urine Protein Urine Glucose (UA) Urine Ketones Urine Blood Urine Nitrite Urine Bilirubin Urine Urobilinogen Ur Leukocyte Esterase Urine WBC (Auto) Urine RBC (Auto) U Hyaline Cast (Auto) U Epithel Cells (Auto) Urine Bacteria (Auto) Nasal Screen MRSA (PCR) Positive A 07/19/20 07/19/20 07/19/20 13:06 13:06 13:30 WBC RBC Hgb POC Hgb Hct POC Hct MCV MCH MCHC RDW Std Deviation RDW Coeff of Fernanda Plt Count MPV Immature Gran % (Auto) Neut % (Auto) Lymph % (Auto) [place] % (Auto) Eos % (Auto) Baso % (Auto) Neut # (Auto) Lymph # (Auto) [place] # (Auto) Eos # (Auto) Baso # (Auto) Immature Gran # (Auto) Sample Site POC pH POC pCO2 POC pO2 POC HCO3 POC Total CO2 POC Base Excess ABG pH (Temp Correct) ABG pCO2 (Temp Corrct POC ABG pO2 at Pt Temp POC ABG O2 Sat Tavo Test O2 Delivery Device POC O2 Rate Minute Ventilation Tidal Volume PEEP POC Sodium Sodium 139 POC Potassium Potassium 4.5 D Chloride 101 Carbon Dioxide 33 H Anion Gap 5.0 BUN 52 H Creatinine 1.12 Est Cr Clr Drug Dosing 82.8 Est GFR ( Amer) 78.4 Est GFR (Non-Af Amer) 67.6 BUN/Creatinine Ratio 46.7 H Glucose 214 H POC Glucose Calcium 8.7 Phosphorus Magnesium Total Bilirubin AST ALT Alkaline Phosphatase Total Protein Albumin Globulin Albumin/Globulin Ratio Triglycerides Procalcitonin 0.05 Urine Color Yellow Urine Appearance Clear Urine pH 5.0 Ur Specific [place] 1.025 Urine Protein Negative Urine Glucose (UA) Negative Urine Ketones Negative Urine Blood 1+ H Urine Nitrite Negative Urine Bilirubin Negative Urine Urobilinogen Negative Ur Leukocyte Esterase Negative Urine WBC (Auto) 1-5 Urine RBC (Auto) 5-10 H U Hyaline Cast (Auto) 1-5 U Epithel Cells (Auto) 10-20 H Urine Bacteria (Auto) Negative Nasal Screen MRSA (PCR) Medications Administered Current Inpatient Medications Acetaminophen (Acetaminophen Susp 325 Mg/10.15 Ml Udc) 650 mg OG Q6H PRN PRN Reason: Fever Stop: 08/12/20 03:28 Last Admin: 07/19/20 10:43 Dose: 650 mg Documented by: Albuterol (Albut/Ipratrop 3mg/0.5mg Neb 3 Ml Vial) 3 ml NEB Q4R PRN PRN Reason: Shortness Of Breath Or Wheezing Stop: 08/08/20 08:46 Aspirin (Aspirin 81 Mg Chew) 81 mg PO QAM PIERRE Stop: 08/11/20 09:59 Last Admin: 07/19/20 07:55 Dose: 81 mg Documented by: Atorvastatin Calcium (Atorvastatin 40 Mg Tab) 80 mg PO QAM PIERRE Stop: 08/08/20 08:59 Last Admin: 07/19/20 07:54 Dose: 80 mg Documented by: Dextrose (Dextrose 50% 50 Ml Syringe) 25 - 50 ml IV UD PRN; Protocol PRN Reason: Hypoglycemia Protocol Stop: 08/11/20 10:59 Enoxaparin Sodium (Enoxaparin Inj 40 Mg/0.4 Ml Syr) 40 mg SQ Q12 PIERRE Stop: 08/09/20 18:59 Last Admin: 07/19/20 07:55 Dose: 40 mg Documented by: Fentanyl Citrate (Fentanyl Bolus From Bag) 50 mcg IV Q60M PRN PRN Reason: Pain or Agitation Stop: 07/25/20 14:07 Last Admin: 07/19/20 10:38 Dose: 50 mcg Documented by: Glucagon (Glucagon For Inj 1 Mg Vial) 1 mg IM UD PRN; Protocol PRN Reason: Hypoglycemia Protocol Stop: 08/11/20 10:59 Glucose (Glucose 40% Gel 15 Gm Tube) 15 - 30 gm PO UD PRN; Protocol PRN Reason: Hypoglycemia Protocol Stop: 08/11/20 10:59 Glucose (Glucose 10 Tabs/Tube) 4 - 8 tabs PO UD PRN; Protocol PRN Reason: Hypoglycemia Protocol Stop: 08/11/20 10:59 Heparin Sodium (Beef Lung) (Heparin 10 Unit/Ml 5 Ml Flush) 5 ml FLUSH PRN PRN PRN Reason: Flush Stop: 08/12/20 22:46 Fentanyl Citrate (Fentanyl Drip) 1,250 mcg in 250 mls @ 30 mls/hr IV .Q8H20M PIERRE; Protocol Stop: 07/25/20 14:14 Last Admin: 07/19/20 13:35 Dose: 150 mcg/hr, 30 mls/hr Documented by: Pantoprazole Sodium 40 mg/ (Syringe) 10 mls @ 5 mls/min IV DAILY@1100 [facility] Stop: 08/11/20 10:59 Last Admin: 07/19/20 11:27 Dose: 5 mls/min Documented by: Dexamethasone Sodium Phosphate (10 mg/ Syringe) 2.5 mls @ 1 mls/min IV DAILY [facility] Stop: 07/27/20 08:59 Dexamethasone Sodium Phosphate (20 mg/ Dextrose) 30 mls @ 60 mls/hr IV DAILY [facility] Stop: 07/21/20 09:29 Last Infusion: 07/19/20 09:16 Dose: Infused Documented by: Furosemide 40 mg/ Syringe 4 mls @ 4 mls/min IV BID [facility] Stop: 08/16/20 08:59 Last Admin: 07/19/20 07:56 Dose: 4 mls/min Documented by: Propofol (Diprivan) 1,000 mg in 100 mls @ 11.367 mls/hr IV .Q8H48M [facility]; Protocol Stop: 07/21/20 07:44 Last Admin: 07/19/20 15:33 Dose: Not Given Documented by: Dexmedetomidine HCl 200 mcg/ (Sodium Chloride) 50 mls @ 12.61 mls/hr IV .Q3H58M [facility]; Protocol Stop: 07/23/20 10:14 Last Admin: 07/19/20 14:27 Dose: 0.4 mcg/kg/hr, 12.6 mls/hr Documented by: Vancomycin HCl 2,500 mg/ (Sodium Chloride) 550 mls @ 200 mls/hr IV NOW ONE Stop: 07/19/20 16:14 Last Admin: 07/19/20 13:34 Dose: 200 mls/hr Documented by: Cefepime HCl 2,000 mg/ Syringe 20 mls @ 5 mls/min IV Q12H [facility]; Protocol Stop: 07/26/20 20:59 Last Admin: 07/19/20 13:34 Dose: 5 mls/min Documented by: Vancomycin HCl 1,500 mg/ (Sodium Chloride) 530 mls @ 200 mls/hr IV Q12H [facility] Stop: 07/27/20 01:59 Insulin Aspart (Insulin Aspart 100 Units/Ml 3 Ml Pen) 0 units SC Q6 PIERRE Stop: 08/11/20 11:59 Last Admin: 07/19/20 11:17 Dose: 1 units Documented by: Lactulose (Lactulose Syrup 20 Gm/30 Ml Udc) 20 gm PO TID PIERRE Stop: 08/18/20 09:59 Last Admin: 07/19/20 13:35 Dose: 20 gm Documented by: Midazolam HCl (Midazolam Bolus From Bag) 2 mg IV Q60M PRN PRN Reason: Sedation Stop: 08/10/20 14:07 Miscellaneous (Carbohydrates For Hypoglycemia ) 15 - 30 gm PO UD PRN PRN Reason: Hypoglycemia Treatment Stop: 08/11/20 10:59 Miscellaneous Information (Vancomycin Consult Active) 1 ea N/A UD PRN PRN Reason: Consult Stop: 08/18/20 12:52 Multi-Ingredient Cream (Artificial Tears Op Oint 3.5 Gm Tube) 1 appln OP Q4H PRN PRN Reason: Anesthesia Stop: 08/10/20 23:48 Last Admin: 07/19/20 08:17 Dose: 1 appln Documented by: Nutritional Formula (Peptamen Intense Vhp 1.0 [place] 1,000 Ml Bag) 1,000 ml OG DAILY PIERRE; Protocol Stop: 08/11/20 10:59 Last Admin: 07/19/20 09:37 Dose: 1,000 ml Documented by: Polyethylene Glycol (Polyethylene (Miralax) 17 Gm Pack) 17 gm PO QAM PIERRE Stop: 08/16/20 09:59 Last Admin: 07/19/20 07:55 Dose: 17 gm Documented by: Propofol (Propofol Bolus From Bag) 20 mg IV Q5M PRN PRN Reason: Sedation Stop: 07/21/20 07:30 Last Admin: 07/19/20 10:38 Dose: 20 mg Documented by: PG Care Time/CCT Total # of Minutes Spent Total Time Spent with Patient: Total time spent is greater than 50% in coordination of care (as documented) at patient's floor/unit and/or counseling patient: Coding Level of Care Code 75051 Subseq Hosp Care Lvl 2 Diagnoses Pneumonia due to COVID-19 virus U07.1; J12.82 Acute hypoxemic respiratory failure J96.01 Sepsis A41.9 Acute kidney injury N17.9 Elevated troponin R77.8 UTI (urinary tract infection) N39.0 Elevated transaminase level R74.01 Anxiety F41.9 Hypokalemia E87.6 Hypertension I10 Osteoarthritis M19.90 CAD (coronary artery disease), [place] coronary artery I25.10 Hyperlipidemia E78.5 DVT prophylaxis Z29.9
[2020-07-19] MEDS ORDERED: PHARMACY GLYCEMIC MGMT CONSULT PRN (18:47)
[2020-07-20] MEDS: VANCOMYCIN HCL 1,500 MG in SODIUM CHLORIDE 0.9% 500 ML IV SCH ×2 (01:55→13:15)
[2020-07-20] MEDS: CEFEPIME 2,000 MG in SYRINGE 0 ML IV SCH ×3 (01:55→17:05)
[2020-07-20] MEDS: PEPTAMEN INTENSE VHP 1.0 CAL 1,000 ML BAG OG SCH (02:50)
[2020-07-20] MEDS: DEXMEDETOMIDINE HCL 200 MCG in SODIUM CHLORIDE 0.9% 48 ML IV SCH ×3 (02:57→11:27)
[2020-07-20 04:02] LABS: iSTAT Art Bld Gas pCO2 Correct 66 mmHg (35-46); iSTAT Art Bld Gas pH Corrected 7.372 (7.35-7.45); iSTAT Arterial Blood Gas HCO3 38 meg/L (19-24); iSTAT Arterial Blood Gas pCO2 61 mmHg (35-46); iSTAT Arterial Blood Gas pO2 91 mmHg (80-95); iSTAT Arterial Blood Gas pO2 C 102; iSTAT Carbon Dioxide 39 mmol/L (24-31); iSTAT Hematocrit 41 % (42-52); iSTAT Hemoglobin 13.9 g/dl (14.0-18.0); iSTAT Potassium 3.8 mmol/L (3.3-5.0); iSTAT Site Art Line; iSTAT Sodium 138 mmol/L (135-144)
[2020-07-20] MEDS: INSULIN ASPART 100 UNITS/ML 3 ML PEN SC SCH ×5 (04:19→20:30)
[2020-07-20 04:59] LABS: Hematocrit (blood only) 39.3 % (42-52); Hemoglobin 12.9 g/dL (14.0-18.0); Mean Corpuscular Hemoglobin 31.7 pg (25-34); Mean Corpuscular Hgb Conc 32.8 g/dL (32-36); Mean Corpuscular Volume 96.6 fL (80-100); Mean Platelet Volume 10.3 fL (7.4-10.4); Platelet Count 162 K/uL (130-400); RDW Coefficient of Variation 13.6 % (11.5-14.5); RDW Standard Deviation 48.1 fL (36.4-46.3); Red Blood Count 4.07 M/uL (4.7-6.1); White Blood Count 17.75 K/uL (4.8-10.8)
[2020-07-20 05:15] LABS: Basophils # (auto) 0.02 K/uL (0-0.2); Basophils % (auto) 0.1 %; Eosinophils # (auto) 0.04 K/uL (0-0.5); Eosinophils % (auto) 0.2 %; Immature Granulocytes # (auto) 1.18 K/uL (0.00-0.02); Immature Granulocytes % (auto) 6.6 %; Lymphocytes % (auto) 8.5 %; Monocytes # (auto) 0.35 K/uL (0.11-0.59); Neutrophils # (auto) 14.66 K/uL (1.4-6.5); Neutrophils % (auto) 82.6 %; RBC Morphology Unremarkable
[2020-07-20 05:51] LABS: BUN Creatinine Ratio 47.7 (10-20); Calcium 8.4 mg/dl (8.5-10.1); Creatinine Clr Calc Pharmacy 94.6 ml/min; Est GFR (African American) 92.1; Est GFR (Non-African American) 79.5; Magnesium 2.1 mg/dl (1.8-2.4)
[2020-07-20] MEDS: propofoL 1,000 MG/100 ML VIAL IV SCH ×6 (05:53→20:38)
[2020-07-20 06:03] LABS: Estimated Average Glucose 169 mg/dl; Hemoglobin A1C 7.5 % (4.5-5.6)
[2020-07-20] MEDS ORDERED: POTASSIUM PHOS 3 MMOL/1 ML INFUSION IV STA (07:00)
[2020-07-20] MEDS ORDERED: POTASSIUM PHOSPHATE 15 MMOL in SODIUM CHLORIDE 0.9% 250 ML IV ONE (07:15)
[2020-07-20 07:17] LABS: Potassium 3.8 mmol/L (3.5-5.1)
[2020-07-20] MEDS: fentaNYL DRIP 1,250 MCG/250 ML BAG IV SCH ×4 (07:41→16:28)
[2020-07-20] MEDS: ASPIRIN 81 MG CHEW PO SCH (07:42)
[2020-07-20] MEDS: LACTULOSE SYRUP 20 GM/30 ML UDC PO SCH ×3 (07:42→20:38)
[2020-07-20] MEDS: ATORVASTATIN 40 MG TAB PO SCH (07:43)
[2020-07-20] MEDS: POLYETHYLENE (MIRALAX) 17 GM PACK PO SCH (07:43)
[2020-07-20] MEDS: ENOXAPARIN INJ 40 MG/0.4 ML SYR SQ SCH ×2 (07:43→20:39)
[2020-07-20] MEDS: dexAMETHasone 20 MG in DEXTROSE 5% 25 ML IV SCH (07:49)
[2020-07-20] MEDS: FUROSEMIDE 40 MG in SYRINGE 0 ML IV SCH ×2 (07:49→20:39)
[2020-07-20] MEDS: ARTIFICIAL TEARS OP OINT 3.5 GM TUBE OP PRN ×2 (08:15→08:33)
[2020-07-20] MEDS: ACETAMINOPHEN SUSP 325 MG/10.15 ML UDC OG PRN (08:34)
--- NOTE | 2020-07-20 09:10 | XRay Report ---
XR chest 1V portable CLINICAL HISTORY: Respiratory failure COMPARISON STUDY: 07/19/2020 FINDINGS: The left subclavian central venous catheter is again visualized. A nasogastric tube is agai n visualized. The endotracheal tube has either been removed, or is abnormally positioned at the level of the cervicothoracic inlet. Clinical correlation advocated. There are persistent bilateral pulmona ry airspace opacities perhaps minimally improved. IMPRESSION: 1. Persistent bilateral pulmonary airspace opacities with perhaps minimal improvement when compared t he prior study 2. The endotracheal tube has either been removed, or is abnormally positioned at the level of the cer vicothoracic inlet. Clinical correlation advocated. ACT 112: Negative or not required by law. Electronically signed by: Jimmie Manuel M.D. 07/20/2020 9:09 AM
[2020-07-20] MEDS ORDERED: POTASSIUM CHLORIDE 20 MEQ/15 ML UDC PO STA (10:12)
--- NOTE | 2020-07-20 10:19 | Critical Care Progress Note ---
Date of Service July 20, 2020 Assessment & Plan (1) Acute hypoxemic respiratory failure: (2) Pneumonia due to COVID-19 virus: Patient was discussed in the multidisciplinary rounds. Impression: 65-year-old male with morbid obesity and ARDS secondary to COVID-19 pneumonia. He is failed conservative measures with oxygen and BiPAP and intubation mechanical ventilation were instituted Recommendations: 1. Neurologic: Wean propofol and fentanyl as able. Continue Precedex. Triglyceride levels are elevated. He continues to have acute encephalopathy likely multifactorial from infection, metabolic derangements and sedation effects. Goal RASS of -2. 2. Pulmonary: Severe ARDS secondary to COVID-19 pneumonia. Day #9 mechanical ventilation. Continue ARDSNET protocol. Continue with the DEXA ARDS protocol. Family has indicated that the patient would not want to tracheostomy. It appeared that the patient was nearly extubated based on the chest x-ray and significant cuff leak. I did perform an emergent bronchoscopy and we were able to successfully advance the endotracheal tube approximately 2 cm above the laverne. Ventilation improved along with oxygenation after advancement of the endotracheal tube. Significant mucopurulent secretions were aspirated bilaterally. The patient is growing Staphylococcus species from the sputum, likely MRSA. He is currently on vancomycin and cefepime. We will obtain a repeat chest x-ray. If he continues to have a significant cuff leak, we will have to consider doing an endotracheal tube exchange. Additionally, had a lengthy discussion with the patient's daughter Hailey and the patient's [place]. They have decided that they would like to pursue a tracheostomy next week if that is deemed necessary. This is a significant change from earlier conversations which have indicated that they would not want the patient to undergo a tracheostomy placement. 3. Cardiovascular: History of coronary disease. He hemodynamically stable currently. History of CARSON, continue ASA. Continue high-dose statin given history of hyperlipidemia. 4. Renal: No current issues. Continue electrolyte replacement per ICU protocol. Trend urine output. 40 mg BID lasix. Replace electrolytes as needed. Completed 4 doses of acetazolamide 07/19/2020. 5. GI: No current issues. Continue PPI. Continue tube feeds. LFTs are stable. 6. ID: Completed 7 days worth of treatment for a urinary tract infection with Rocephin. Antibiotics have been escalated to vancomycin and cefepime on 07/19/2020. We will leave cefepime on for 48 hours if no significant gram- negative growth. Urinalysis on 07/19/2020 was largely unremarkable. Blood cultures and sputum cultures are still pending. Preliminary is growing staph species. 7. Endocrine: Glycemic control per protocol. 8. Heme-onc: No current issues. DVT prophylaxis with Lovenox. Patient's overall prognosis remains guarded at this point time. Patient's family updated at bedside. CRITICAL CARE TIME - I have personally spent 43 minutes of critical care time in the direct management of this patient. This is a life/limb threatening event. This includes time spent evaluating patient, direct bedside care, chart review, placing orders, interpretation of diagnostic studies, discussion with consultants, patient, and family members, as well as other required patient management activities. This time is exclusive of all separately billable procedures, and teaching time and separate from and in addition to any other critical care service time. (3) Hypervolemia: (4) Morbid obesity due to excess calories: (5) Acute encephalopathy: Admission and Anticipated Discharge Date Admission Date: July 08, 2020 Subjective Patient was seen and examined this morning. Overnight he had a significant cuff leak and I emergently performed a bronchoscopy and advanced the endotracheal tube after the chest x-ray demonstrated the endotracheal was nearly removed. Patient is currently on 70% FiO2 and a PEEP of 16. He has been having high- grade fevers overnight of upwards of 101.7. Hemodynamically has been stable. He does have intermittent periods of bradycardia. Review of Systems Review of Systems: Unobtainable due to reduced consciousness Physical Exam Constitutional: + obese and + mechanically ventilated Neck: trachea midline, no thyromegaly Respiratory: normal respiratory effort, lungs clear to auscultation Cardiovascular: RRR, no murmur, no edema Gastrointestinal (Abdomen): normal bowel sounds, soft, nontender, no hepatosplenomegaly Musculoskeletal: Extremities: extremities normal to inspection Skin: no rashes, warm and dry Neurologic: Unable to follow commands. Lymphatic: no cervical lymphadenopathy Results & Data Results & Data ([facility]) Vital Signs (Past 12 Hours) Vital Signs Temp Pulse Resp BP Pulse Ox 07/20/20 07:51 83 29 H 90 07/20/20 06:00 101.7 F H 57 L 89 L 07/20/20 05:12 101.3 F H 75 151/83 H 89 L 07/20/20 05:00 101.3 F H 81 90 07/20/20 04:12 101.1 F H 81 155/83 H 88 L 07/20/20 04:00 101.3 F H 84 128/56 L 91 07/20/20 03:20 88 31 H 92 07/20/20 03:12 102.0 F H 59 L 139/72 93 07/20/20 03:00 101.8 F H 58 L 94 07/20/20 02:12 101.7 F H 56 L 128/68 94 07/20/20 02:00 101.7 F H 56 L 95 07/20/20 01:45 101.7 F H 55 L 94 07/20/20 01:30 101.7 F H 56 L 94 07/20/20 01:15 101.5 F H 57 L 94 07/20/20 01:12 101.5 F H 57 L 129/67 94 07/20/20 01:00 101.5 F H 57 L 93 07/20/20 00:45 101.3 F H 57 L 92 07/20/20 00:30 101.1 F H 57 L 92 07/20/20 00:15 101.1 F H 57 L 91 07/20/20 00:12 101.1 F H 57 L 116/64 91 07/20/20 00:00 100.9 F H 57 L 119/55 L 91 07/19/20 23:12 101.5 F H 79 165/85 H 95 07/19/20 23:01 89 32 H 91 07/19/20 23:00 101.5 F H 59 L 96 I reviewed his vital signs, labs and imaging. Coding Level of Care Code Critical Care 1st 30-74 mins Diagnoses Acute hypoxemic respiratory failure J96.01 Pneumonia due to COVID-19 virus U07.1; J12.82 Hypervolemia E87.70 Morbid obesity due to excess calories E66.01 Acute encephalopathy G93.40 Time Spent (min) 43
--- NOTE | 2020-07-20 10:25 | Pharmacy Report ---
Pharmacy Glycemic Short Note 2 - Date of Service July 20, 2020 - Glycemic Short BSG Results (Last 24 hours): 07/19/20 07/19/20 07/19/20 11:04 13:06 17:40 Glucose 214 H POC Glucose 164 H 184 H 07/19/20 07/19/20 07/20/20 20:32 23:34 04:08 Glucose POC Glucose 155 H 146 H 125 H 07/20/20 07/20/20 04:40 07:54 Glucose 143 H POC Glucose 185 H OUTPATIENT ANTIDIABETIC REGIMEN: * n/a * A1c = 7.5% 07/20/20 ASSESSMENT: * Type 2 diabetic, intubated, sedated in ICU with resp failure from COVID19 viral pneumonia * DEXA-ARDS regimen continues, day 4/5 dexamethasone 20mg IV daily * Tube feeds continue at goal: Peptamen VHP @70cc/hr * BSGs well controlled despite these stressors with the use of correctional Novolog. Will add carb coverage at this time however to maintain BSGs less than 180. PLAN FOR INPATIENT GLYCEMIC CONTROL: * Basal insulin * none * Bolus insulin * NovoLog per scale Q 4 hrs * Goal Range: Low 120 mg/dL - High 150 mg/dL * Correction Factor: 25 mg/dL/unit * Nutritional / Prandial insulin per carb ratio of 1 unit per 9 grams CHO consumed
--- NOTE | 2020-07-20 10:48 | Procedure Note ---
Procedure Note Date of Service July 20, 2020 Note PREOPERATIVE DIAGNOSIS: Acute hypoxemic respiratory failure secondary to Covid pneumonia with superimposed staph infection POSTOPERATIVE DIAGNOSIS: Same as above PROCEDURE PERFORMED: Flexible fiberoptic bronchoscopy COMPLICATIONS: None. INDICATION: Evaluation of endotracheal tube placement. PROCEDURE: The procedure was performed emergently given the patient's hypoxia and concern for inadvertent extubation. No consent was obtained. I did inform the patient's family after the procedure and they had no issues with me performing the bronchoscopy given its emergent indication. The patient was hyperoxygenated with #FiO2 via the ventilator prior to the insertion of the bronchoscope. At the time of insertion of the bronchoscope, secretions were noted lining the endotracheal tube. The tip of the endotracheal tube appeared above the epiglottis. The epiglottis appears swollen and irritated. I advanced the bronchoscope to the trachea and subsequently the endotracheal tube was advanced forward with relative ease. Notably, the endotracheal tube was at 24 cm at the lip prior to the bronchoscopy. The trachea appeared swollen and erythematous. I then withdrew the bronchoscope and then we ventilated the patient. The cuff leak appeared to be substantially improved. I then reinserted the bronchoscope and did a survey of the bilateral bronchial tree in the segmental and subsegmental bronchi. Very significant mucoid impaction and mucopurulent secretions were noted bilaterally which were successfully aspirated. The bronchoscope was removed and the patient had improved saturations. The endotracheal tube was secured at 28 cm at the level of the teeth. A repeat chest x-ray is pending. Recommendations: Continue mechanical ventilation and broad-spectrum antibiotics. We will initiate chest PT and MetaNebs. Coding CPT Codes Pulmonary/Thoracic - Pulmonary and Thoracic: 04161 Bronchoscopy, clear airways ([id number]) [facility] Procedure Codes (Charges) Pulmonary/Thoracic Procedure 1: Pulmonary and Thoracic: 22358 Bronchoscopy, clear airways
[2020-07-20] MEDS: PANTOprazole 40 MG in SYRINGE 0 ML IV SCH (11:24)
--- NOTE | 2020-07-20 12:07 | Hospitalist Progress Note ---
Date of Service July 20, 2020 Assessment & Plan (1) Pneumonia due to COVID-19 virus: Pneumonia due to COVID-19 He had a positive test 7 days [facility] at [facility] with no previous treatment. Had difficulty with tolerating Vapotherm high flow nasal cannula and was not able to maintain pulse ox greater than 88% on max settings of high flow along with 15 L nonrebreather mask over his mouth Mentation began to worsen and he became hypercapnic as well on the morning of 07/11, also tachypneic Placed on trial of BiPAP and failed Chest x-ray and overall picture consistent with ARDS Transferred to ICU and was intubated and is mechanically ventilated as of the a.m. 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 piercer management high dose Decadron at this time -Continue albuterol -He is outside the range for giving remdesivir or convalescent plasma as he is over 1 week out from diagnosis -Initially was given IV azithromycin but procalcitonin negative and no leukocytosis-this was discontinued fevers again today (2) Acute hypoxemic respiratory failure: As noted above severe ARDS, following ARDSnet protocol family would now WANT tracheostomy after further discussion would evaluate for this next week bronchoscopy on 07/20 for air leak ETT advanced and mucopurulent secretions aspirated from both airways better ventilation afterwards ICU managing (3) Sepsis: Sepsis in setting of COVID19 pneumonia with septic shock Now weaned off levophed on 07/15 now with fever 39, elevated WBC with decadron monitor closely placed on Cefepime 2000mg q8 and Vancomycin bronchial lavage with cultures (4) Acute kidney injury: Creatinine 2.38 upon admission, with recent 1.36 [employer] [facility] [employer] Has improved to 0.9 giving Lasix 40mg IV Continue to hold telmisartan/HCTZ and diclofenac Received another dose of IV Lasix 07/11 Follow CMP Follow urine output Placed Alicia catheter (5) Elevated troponin: likely secondary to myocardial demand ischemia Was minimally elevated at 0.035/0.019/0.02 ECG without ischemic changes (6) Anxiety: On lorazepam 1 mg 3 times daily at home Now receiving Versed as needed while ventilated (7) Hypokalemia: K is stable (8) Hypertension: Blood pressures were low, requiring pressor but now weaned off Levophed Holding home telmisartan/HCT for acute kidney injury Metoprolol on hold as well (9) Osteoarthritis: Hold diclofenac due to acute kidney injury (10) CAD (coronary artery disease), [place] coronary artery: With a history of coronary stent Troponin minimally elevated and stable x2 most likely secondary to myocardial demand ischemia from profound hypoxia -continue aspirin 81 mg daily given presence of stent -continue statin -holding metoprolol succinate 50 mg daily for hypotension (11) Hyperlipidemia: Continue atorvastatin 80 mg every morning triglycerides elevated on Propofol weaning off as tolerated, moving to Precedex (12) DVT prophylaxis: Lovenox 40 mg SQ every 12 FEN-no IV fluids other than medications, on tube feeds at 10 mL's per hour when not proned Ddloy-L-bhro, central venous catheter, Alicia catheter GI prophylaxis-IV Protonix Disposition-continued stay in ICU, prognosis remains guarded Full code Admission and Anticipated Discharge Date Admission Date: July 08, 2020 Subjective patient had bronchoscopy today, endotracheal tube had a leak, had been pulled back tube was advanced over the bronchoscope further evaluation found that he had mucoid impaction in larger airways, these were aspirated, improvement in ventilation afterwards spiking fevers 39, WBC up to 17k, BMP stable on Cefepime and Vanco for bacterial pneumonia coverage Review of Systems Review of Systems: Unobtainable due to endotracheal tube and Unobtainable due to reduced consciousness Physical Exam Constitutional: well developed, well nourished and + mechanically ventilated; no acute distress Respiratory: + tachypneic; no respiratory distress Auscultation: lungs clear to auscultation bilaterally Cardiovascular: RRR, no murmur, no edema Gastrointestinal (Abdomen): normal bowel sounds, soft, nontender, no hepatosplenomegaly Musculoskeletal: Head/Neck/Chest: normocephalic, head atraumatic and neck supple Extremities: extremities normal to inspection; no cyanosis, no clubbing and no petechiae Skin: no rashes, warm and dry Neurologic: CN's II-XI intact bilaterally and + obtunded; no focal motor deficits Results & Data Results & Data ([facility]) Vital Signs (Past 12 Hours) Vital Signs Temp Pulse Resp BP Pulse Ox 07/20/20 11:00 39.0 C H 89 88 L 07/20/20 10:12 38.8 C H 61 124/62 95 07/20/20 09:12 38.7 C H 70 136/65 91 07/20/20 08:12 38.6 C H 80 166/86 H 91 07/20/20 08:00 56 L 07/20/20 07:51 83 29 H 90 07/20/20 07:12 39.0 C H 58 L 137/71 91 07/20/20 06:00 38.7 C H 57 L 89 L 07/20/20 05:12 38.5 C H 75 151/83 H 89 L 07/20/20 05:00 38.5 C H 81 90 07/20/20 04:12 38.4 C H 81 155/83 H 88 L 07/20/20 04:00 38.5 C H 84 128/56 L 91 07/20/20 03:20 88 31 H 92 07/20/20 03:12 38.9 C H 59 L 139/72 93 07/20/20 03:00 38.8 C H 58 L 94 07/20/20 02:12 38.7 C H 56 L 128/68 94 07/20/20 02:00 38.7 C H 56 L 95 07/20/20 01:45 38.7 C H 55 L 94 07/20/20 01:30 38.7 C H 56 L 94 07/20/20 01:15 38.6 C H 57 L 94 07/20/20 01:12 38.6 C H 57 L 129/67 94 07/20/20 01:00 38.6 C H 57 L 93 07/20/20 00:45 38.5 C H 57 L 92 07/20/20 00:30 38.4 C H 57 L 92 07/20/20 00:15 38.4 C H 57 L 91 07/20/20 00:12 38.4 C H 57 L 116/64 91 07/20/20 00:00 38.3 C H 57 L 119/55 L 91 Laboratory Results Laboratory Results - last 24 hr 07/19/20 07/19/20 07/19/20 13:00 13:06 13:06 WBC RBC Hgb POC Hgb Hct POC Hct MCV MCH MCHC RDW Std Deviation RDW Coeff of [place] Plt Count MPV Immature Gran % (Auto) Neut % (Auto) Lymph % (Auto) [place] % (Auto) Eos % (Auto) Baso % (Auto) Neut # (Auto) Lymph # (Auto) [place] # (Auto) Eos # (Auto) Baso # (Auto) Immature Gran # (Auto) RBC Morphology Sample Site POC pH POC pCO2 POC pO2 POC HCO3 POC Total CO2 POC Base Excess ABG pH (Temp Correct) ABG pCO2 (Temp Corrct POC ABG pO2 at Pt Temp POC ABG O2 Sat Tavo Test O2 Delivery Device POC O2 Rate Minute Ventilation Tidal Volume PEEP POC Sodium Sodium 139 POC Potassium Potassium 4.5 D Chloride 101 Carbon Dioxide 33 H Anion Gap 5.0 BUN 52 H Creatinine 1.12 Est Cr Clr Drug Dosing 82.8 Est GFR ( Amer) 78.4 Est GFR (Non-Af Amer) 67.6 BUN/Creatinine Ratio 46.7 H Glucose 214 H POC Glucose Estimat Average Glucose Hemoglobin A1c Calcium 8.7 Phosphorus Magnesium Triglycerides Procalcitonin 0.05 Specimen Hemolysis Urine Color Urine Appearance Urine pH Ur Specific [place] Urine Protein Urine Glucose (UA) Urine Ketones Urine Blood Urine Nitrite Urine Bilirubin Urine Urobilinogen Ur Leukocyte Esterase Urine WBC (Auto) Urine RBC (Auto) U Hyaline Cast (Auto) U Epithel Cells (Auto) Urine Bacteria (Auto) Nasal Screen MRSA (PCR) Positive A 07/19/20 07/19/20 07/19/20 13:30 17:40 20:32 WBC RBC Hgb POC Hgb Hct POC Hct MCV MCH MCHC RDW Std Deviation RDW Coeff of [place] Plt Count MPV Immature Gran % (Auto) Neut % (Auto) Lymph % (Auto) [place] % (Auto) Eos % (Auto) Baso % (Auto) Neut # (Auto) Lymph # (Auto) [place] # (Auto) Eos # (Auto) Baso # (Auto) Immature Gran # (Auto) RBC Morphology Sample Site POC pH POC pCO2 POC pO2 POC HCO3 POC Total CO2 POC Base Excess ABG pH (Temp Correct) ABG pCO2 (Temp Corrct POC ABG pO2 at Pt Temp POC ABG O2 Sat Tavo Test O2 Delivery Device POC O2 Rate Minute Ventilation Tidal Volume PEEP POC Sodium Sodium POC Potassium Potassium Chloride Carbon Dioxide Anion Gap BUN Creatinine Est Cr Clr Drug Dosing Est GFR ( Amer) Est GFR (Non-Af Amer) BUN/Creatinine Ratio Glucose POC Glucose 184 H 155 H Estimat Average Glucose Hemoglobin A1c Calcium Phosphorus Magnesium Triglycerides Procalcitonin Specimen Hemolysis Urine Color Yellow Urine Appearance Clear Urine pH 5.0 Ur Specific [place] 1.025 Urine Protein Negative Urine Glucose (UA) Negative Urine Ketones Negative Urine Blood 1+ H Urine Nitrite Negative Urine Bilirubin Negative Urine Urobilinogen Negative Ur Leukocyte Esterase Negative Urine WBC (Auto) 1-5 Urine RBC (Auto) 5-10 H U Hyaline Cast (Auto) 1-5 U Epithel Cells (Auto) 10-20 H Urine Bacteria (Auto) Negative Nasal Screen MRSA (PCR) 07/19/20 07/20/20 07/20/20 23:34 03:47 04:08 WBC RBC Hgb POC Hgb 13.9 L Hct POC Hct 41 L MCV MCH MCHC RDW Std Deviation RDW Coeff of [place] Plt Count MPV Immature Gran % (Auto) Neut % (Auto) Lymph % (Auto) [place] % (Auto) Eos % (Auto) Baso % (Auto) Neut # (Auto) Lymph # (Auto) [place] # (Auto) Eos # (Auto) Baso # (Auto) Immature Gran # (Auto) RBC Morphology Sample Site Art Line POC pH 7.40 POC pCO2 61 H POC pO2 91 POC HCO3 38 H POC Total CO2 39 H POC Base Excess 13.0 H ABG pH (Temp Correct) 7.372 ABG pCO2 (Temp Corrct 66 H POC ABG pO2 at Pt Temp 102 POC ABG O2 Sat 97.0 H Tavo Test NA O2 Delivery Device Ventilator POC O2 Rate 27 Minute Ventilation 14.8 Tidal Volume 350 PEEP 14 POC Sodium 138 Sodium POC Potassium 3.8 Potassium Chloride Carbon Dioxide Anion Gap BUN Creatinine Est Cr Clr Drug Dosing Est GFR ( Amer) Est GFR (Non-Af Amer) BUN/Creatinine Ratio Glucose POC Glucose 146 H 125 H Estimat Average Glucose Hemoglobin A1c Calcium Phosphorus Magnesium Triglycerides Procalcitonin Specimen Hemolysis Urine Color Urine Appearance Urine pH Ur Specific [place] Urine Protein Urine Glucose (UA) Urine Ketones Urine Blood Urine Nitrite Urine Bilirubin Urine Urobilinogen Ur Leukocyte Esterase Urine WBC (Auto) Urine RBC (Auto) U Hyaline Cast (Auto) U Epithel Cells (Auto) Urine Bacteria (Auto) Nasal Screen MRSA (PCR) 07/20/20 07/20/20 07/20/20 04:40 04:40 04:40 WBC 17.75 H RBC 4.07 L Hgb 12.9 L POC Hgb Hct 39.3 L POC Hct MCV 96.6 MCH 31.7 MCHC 32.8 RDW Std Deviation 48.1 H RDW Coeff of [place]anda 13.6 Plt Count 162 MPV 10.3 Immature Gran % (Auto) 6.6 Neut % (Auto) 82.6 Lymph % (Auto) 8.5 [place] % (Auto) 2.0 Eos % (Auto) 0.2 Baso % (Auto) 0.1 Neut # (Auto) 14.66 H Lymph # (Auto) 1.50 [place] # (Auto) 0.35 Eos # (Auto) 0.04 Baso # (Auto) 0.02 Immature Gran # (Auto) 1.18 H RBC Morphology Unremarkable Sample Site POC pH POC pCO2 POC pO2 POC HCO3 POC Total CO2 POC Base Excess ABG pH (Temp Correct) ABG pCO2 (Temp Corrct POC ABG pO2 at Pt Temp POC ABG O2 Sat Tavo Test O2 Delivery Device POC O2 Rate Minute Ventilation Tidal Volume PEEP POC Sodium Sodium 140 POC Potassium Potassium 3.8 D Chloride 103 Carbon Dioxide 31 Anion Gap 6.0 BUN 46 H Creatinine 0.98 Est Cr Clr Drug Dosing 94.6 Est GFR ( Amer) 92.1 Est GFR (Non-Af Amer) 79.5 BUN/Creatinine Ratio 47.7 H Glucose 143 H POC Glucose Estimat Average Glucose 169 Hemoglobin A1c 7.5 H Calcium 8.4 L Phosphorus 2.0 L Magnesium 2.1 Triglycerides 302 H Procalcitonin Specimen Hemolysis Urine Color Urine Appearance Urine pH Ur Specific [place] Urine Protein Urine Glucose (UA) Urine Ketones Urine Blood Urine Nitrite Urine Bilirubin Urine Urobilinogen Ur Leukocyte Esterase Urine WBC (Auto) Urine RBC (Auto) U Hyaline Cast (Auto) U Epithel Cells (Auto) Urine Bacteria (Auto) Nasal Screen MRSA (PCR) 07/20/20 07/20/20 07:54 11:37 WBC RBC Hgb POC Hgb Hct POC Hct MCV MCH MCHC RDW Std Deviation RDW Coeff of [place] Plt Count MPV Immature Gran % (Auto) Neut % (Auto) Lymph % (Auto) [place] % (Auto) Eos % (Auto) Baso % (Auto) Neut # (Auto) Lymph # (Auto) [place] # (Auto) Eos # (Auto) Baso # (Auto) Immature Gran # (Auto) RBC Morphology Sample Site POC pH POC pCO2 POC pO2 POC HCO3 POC Total CO2 POC Base Excess ABG pH (Temp Correct) ABG pCO2 (Temp Corrct POC ABG pO2 at Pt Temp POC ABG O2 Sat Tavo Test O2 Delivery Device POC O2 Rate Minute Ventilation Tidal Volume PEEP POC Sodium Sodium POC Potassium Potassium Chloride Carbon Dioxide Anion Gap BUN Creatinine Est Cr Clr Drug Dosing Est GFR ( Amer) Est GFR (Non-Af Amer) BUN/Creatinine Ratio Glucose POC Glucose 185 H 204 H Estimat Average Glucose Hemoglobin A1c Calcium Phosphorus Magnesium Triglycerides Procalcitonin Specimen Hemolysis Urine Color Urine Appearance Urine pH Ur Specific [place] Urine Protein Urine Glucose (UA) Urine Ketones Urine Blood Urine Nitrite Urine Bilirubin Urine Urobilinogen Ur Leukocyte Esterase Urine WBC (Auto) Urine RBC (Auto) U Hyaline Cast (Auto) U Epithel Cells (Auto) Urine Bacteria (Auto) Nasal Screen MRSA (PCR) Medications Administered Current Inpatient Medications Acetaminophen (Acetaminophen Susp 325 Mg/10.15 Ml Udc) 650 mg OG Q6H PRN PRN Reason: Fever Stop: 08/12/20 03:28 Last Admin: 07/20/20 08:34 Dose: 650 mg Documented by: Albuterol (Albut/Ipratrop 3mg/0.5mg Neb 3 Ml Vial) 3 ml NEB Q4R PRN PRN Reason: Shortness Of Breath Or Wheezing Stop: 08/08/20 08:46 Aspirin (Aspirin 81 Mg Chew) 81 mg PO QAM [facility] Stop: 08/11/20 09:59 Last Admin: 07/20/20 07:42 Dose: 81 mg Documented by: Atorvastatin Calcium (Atorvastatin 40 Mg Tab) 80 mg PO QAM [facility] Stop: 08/08/20 08:59 Last Admin: 07/20/20 07:43 Dose: 80 mg Documented by: Dextrose (Dextrose 50% 50 Ml Syringe) 25 - 50 ml IV UD PRN; Protocol PRN Reason: Hypoglycemia Protocol Stop: 08/11/20 10:59 Enoxaparin Sodium (Enoxaparin Inj 40 Mg/0.4 Ml Syr) 40 mg SQ Q12 [facility] Stop: 08/09/20 18:59 Last Admin: 07/20/20 07:43 Dose: 40 mg Documented by: Fentanyl Citrate (Fentanyl Bolus From Bag) 50 mcg IV Q60M PRN PRN Reason: Pain or Agitation Stop: 07/25/20 14:07 Last Admin: 07/19/20 10:38 Dose: 50 mcg Documented by: Glucagon (Glucagon For Inj 1 Mg Vial) 1 mg IM UD PRN; Protocol PRN Reason: Hypoglycemia Protocol Stop: 08/11/20 10:59 Glucose (Glucose 40% Gel 15 Gm Tube) 15 - 30 gm PO UD PRN; Protocol PRN Reason: Hypoglycemia Protocol Stop: 08/11/20 10:59 Glucose (Glucose 10 Tabs/Tube) 4 - 8 tabs PO UD PRN; Protocol PRN Reason: Hypoglycemia Protocol Stop: 08/11/20 10:59 Heparin Sodium (Beef Lung) (Heparin 10 Unit/Ml 5 Ml Flush) 5 ml FLUSH PRN PRN PRN Reason: Flush Stop: 08/12/20 22:46 Fentanyl Citrate (Fentanyl Drip) 1,250 mcg in 250 mls @ 30 mls/hr IV .Q8H20M [facility]; Protocol Stop: 07/25/20 14:14 Last Admin: 07/20/20 07:41 Dose: 150 mcg/hr, 30 mls/hr Documented by: Pantoprazole Sodium 40 mg/ (Syringe) 10 mls @ 5 mls/min IV DAILY@1100 [facility] Stop: 08/11/20 10:59 Last Admin: 07/19/20 11:27 Dose: 5 mls/min Documented by: Dexamethasone Sodium Phosphate (10 mg/ Syringe) 2.5 mls @ 1 mls/min IV DAILY [facility] Stop: 07/27/20 08:59 Dexamethasone Sodium Phosphate (20 mg/ Dextrose) 30 mls @ 60 mls/hr IV DAILY [facility] Stop: 07/21/20 09:29 Last Infusion: 07/20/20 08:43 Dose: Infused Documented by: Furosemide 40 mg/ Syringe 4 mls @ 4 mls/min IV BID [facility] Stop: 08/16/20 08:59 Last Admin: 07/20/20 07:49 Dose: 4 mls/min Documented by: Propofol (Diprivan) 1,000 mg in 100 mls @ 22.734 mls/hr IV .Q4H24M [facility]; Protocol Stop: 07/21/20 07:44 Last Admin: 07/20/20 09:52 Dose: 30 mcg/kg/min, 22.7 mls/hr Documented by: Dexmedetomidine HCl 200 mcg/ (Sodium Chloride) 50 mls @ 12.61 mls/hr IV .Q3H58M [facility]; Protocol Stop: 07/23/20 10:14 Last Admin: 07/20/20 07:40 Dose: 0.4 mcg/kg/hr, 12.6 mls/hr Documented by: Vancomycin HCl 1,500 mg/ (Sodium Chloride) 530 mls @ 200 mls/hr IV Q12H [facility] Stop: 07/27/20 01:59 Last Infusion: 07/20/20 04:34 Dose: Infused Documented by: Cefepime HCl 2,000 mg/ Syringe 20 mls @ 5 mls/min IV Q8H [facility]; Protocol Stop: 07/26/20 20:59 Last Admin: 07/20/20 09:52 Dose: 5 mls/min Documented by: Insulin Aspart (Insulin Aspart 100 Units/Ml 3 Ml Pen) 0 units SC Q4 [facility]; Protocol Stop: 08/18/20 20:59 Last Admin: 07/20/20 08:10 Dose: 2 units Documented by: Lactulose (Lactulose Syrup 20 Gm/30 Ml Udc) 20 gm PO TID [facility] Stop: 08/18/20 09:59 Last Admin: 07/20/20 07:42 Dose: 20 gm Documented by: Midazolam HCl (Midazolam Bolus From Bag) 2 mg IV Q60M PRN PRN Reason: Sedation Stop: 08/10/20 14:07 Miscellaneous (Carbohydrates For Hypoglycemia ) 15 - 30 gm PO UD PRN PRN Reason: Hypoglycemia Treatment Stop: 08/11/20 10:59 Miscellaneous Information (Vancomycin Consult Active) 1 ea N/A UD PRN PRN Reason: Consult Stop: 08/18/20 12:52 Miscellaneous Information (Pharmacy Glycemic Mgmt Consult) 1 ea N/A UD PRN PRN Reason: Consult Stop: 08/18/20 18:46 Multi-Ingredient Cream (Artificial Tears Op Oint 3.5 Gm Tube) 1 appln OP Q4H PRN PRN Reason: Anesthesia Stop: 08/10/20 23:48 Last Admin: 07/20/20 08:33 Dose: 1 appln Documented by: Nutritional Formula (Peptamen Intense Vhp 1.0 [place] 1,000 Ml Bag) 1,000 ml OG DAILY [facility]; Protocol Stop: 08/11/20 10:59 Last Admin: 07/20/20 02:50 Dose: 1,000 ml Documented by: Polyethylene Glycol (Polyethylene (Miralax) 17 Gm Pack) 17 gm PO QAM [facility] Stop: 08/16/20 09:59 Last Admin: 07/20/20 07:43 Dose: 17 gm Documented by: Propofol (Propofol Bolus From Bag) 20 mg IV Q5M PRN PRN Reason: Sedation Stop: 07/21/20 07:30 Last Admin: 07/19/20 10:38 Dose: 20 mg Documented by: PG Care Time/CCT Total # of Minutes Spent Total Time Spent with Patient: Total time spent is greater than 50% in coordi nation of care (as documented) at patient's floor/unit and/or counseling patient: Coding Level of Care Code 70476 Subseq Hosp Care Lvl 2 Diagnoses Pneumonia due to COVID-19 virus U07.1; J12.82 Acute hypoxemic respiratory failure J96.01 Sepsis A41.9 Acute kidney injury N17.9 Elevated troponin R77.8 Anxiety F41.9 Hypokalemia E87.6 Hypertension I10 Osteoarthritis M19.90 CAD (coronary artery disease), [place] coronary artery I25.10 Hyperlipidemia E78.5 DVT prophylaxis Z29.9
--- NOTE | 2020-07-20 13:36 | XRay Report ---
XR chest 1V portable HISTORY: 65 years-old Male post bronch acute respiratory failure. Status post bronchoscopy COMPARISON: Chest radiograph 07/20/2020 TECHNIQUE: Portable AP view of the chest FINDINGS: Cardiac silhouette is upper limits of normal in size. Calcified plaque of the thoracic aorta. A left subclavian Vaczjt-p-Xjyh catheter is noted with distal tip in the expected location of the brachiocep halic SVC confluence. Endotracheal tube overlies the midline, 2.1 cm superior to the laverne. Enteric tube courses below the diaphragm outside the [id number]. No pneumothorax or large pleural effusion . Bilateral airspace opacities with interstitial coarsening appears stable to slightly progressed. De generative changes of the shoulders and spine. Calcific granuloma of the left mid to lower lateral maynor ng. IMPRESSION: 1. Lines and tubes as above. 2. Interstitial coarsening with bilateral airspace opacities appears stable to slightly progressed fr om comparison. 3. No pneumothorax. ACT 112: Negative or not required by law. The above report was generated using voice recognition software. It may contain grammatical, syntax o r spelling errors. Electronically signed by: Gary Treadwell M.D. 07/20/2020 1:35 PM
[2020-07-20] MEDS: DEXMEDETOMIDINE HCL 400 MCG in 0.9 % SODIUM CHLORIDE 96 ML IV SCH ×2 (15:58→21:57)
[2020-07-20] MEDS: ALBUT/IPRATROP 3MG/0.5MG NEB 3 ML VIAL NEB PRN (19:15)
[2020-07-20] MEDS ORDERED: ACETAMINOPHEN 1,000 MG/100 ML VIAL IV STA (23:55)
[2020-07-21] MEDS: fentaNYL DRIP 1,250 MCG/250 ML BAG IV SCH ×4 (00:16→14:21)
[2020-07-21] MEDS: propofoL 1,000 MG/100 ML VIAL IV SCH ×4 (00:16→13:29)
[2020-07-21] MEDS: INSULIN ASPART 100 UNITS/ML 3 ML PEN SC SCH ×6 (00:34→20:31)
[2020-07-21] MEDS: VANCOMYCIN HCL 1,500 MG in SODIUM CHLORIDE 0.9% 500 ML IV SCH ×2 (01:24→14:00)
[2020-07-21] MEDS: CEFEPIME 2,000 MG in SYRINGE 0 ML IV SCH ×3 (01:24→17:08)
[2020-07-21] MEDS ORDERED: VANCOMYCIN TROUGH ONE ×2 (01:30→13:30)
[2020-07-21] MEDS: ALBUT/IPRATROP 3MG/0.5MG NEB 3 ML VIAL NEB PRN ×5 (03:42→19:35)
[2020-07-21 04:02] LABS: iSTAT Art Bld Gas pCO2 Correct 59 mmHg (35-46); iSTAT Art Bld Gas pH Corrected 7.422 (7.35-7.45); iSTAT Arterial Blood Gas HCO3 38 meg/L (19-24); iSTAT Arterial Blood Gas pCO2 54 mmHg (35-46); iSTAT Arterial Blood Gas pH 7.45 (7.35-7.45); iSTAT Arterial Blood Gas pO2 81 mmHg (80-95); iSTAT Arterial Blood Gas pO2 C 91; iSTAT Carbon Dioxide 39 mmol/L (24-31); iSTAT FiO2 50 %; iSTAT Hematocrit 37 % (42-52); iSTAT Hemoglobin 12.6 g/dl (14.0-18.0); iSTAT Potassium 4.1 mmol/L (3.3-5.0); iSTAT Site Art Line; iSTAT Sodium 139 mmol/L (135-144)
[2020-07-21] MEDS: DEXMEDETOMIDINE HCL 400 MCG in 0.9 % SODIUM CHLORIDE 96 ML IV SCH ×3 (05:07→22:12)
[2020-07-21 05:29] LABS: Hematocrit (blood only) 39.4 % (42-52); Hemoglobin 12.8 g/dL (14.0-18.0); Mean Corpuscular Hemoglobin 31.3 pg (25-34); Mean Corpuscular Hgb Conc 32.5 g/dL (32-36); Mean Corpuscular Volume 96.3 fL (80-100); Mean Platelet Volume 10.6 fL (7.4-10.4); Platelet Count 147 K/uL (130-400); RDW Coefficient of Variation 13.9 % (11.5-14.5); RDW Standard Deviation 48.7 fL (36.4-46.3); Red Blood Count 4.09 M/uL (4.7-6.1); White Blood Count 18.01 K/uL (4.8-10.8)
[2020-07-21 06:09] LABS: ALC (manual) 0.92 K/uL (1.2-3.4); ANC (manual) 13.87 K/uL (1.4-6.5); Basophils # (manual) 0.31 K/uL (0-0.2); Basophils % (manual) 1.7 %; Lymphocytes # (manual) 0.92 K/uL (1.2-3.4); Lymphocytes % (manual) 5.1 %; Monocytes # (manual) 1.69 K/uL (0.11-0.59); Monocytes % (manual) 9.4 %; Myelocytes # (manual) 1.22 K/uL (0-0); Myelocytes % (manual) 6.8 %; Neutrophils # (manual) 13.87 K/uL (1.4-6.5)
[2020-07-21 06:14] LABS: BUN Creatinine Ratio 45.3 (10-20); Calcium 8.3 mg/dl (8.5-10.1); Creatinine Clr Calc Pharmacy 99.7 ml/min; Est GFR (African American) 98.1; Est GFR (Non-African American) 84.6; Magnesium 2.3 mg/dl (1.8-2.4); Phosphorus 2.3 mg/dl (2.5-4.9)
[2020-07-21] MEDS ORDERED: POTASSIUM PHOS 3 MMOL/1 ML INFUSION IV STA (06:27)
[2020-07-21] MEDS ORDERED: POTASSIUM PHOSPHATE 15 MMOL in SODIUM CHLORIDE 0.9% 250 ML IV ONE (06:45)
--- NOTE | 2020-07-21 07:57 | XRay Report ---
XR chest 1V portable HISTORY: 65 years-old Male f/u acute respiratory failure COMPARISON: Chest radiograph 07/20/2020 TECHNIQUE: Portable AP view of the chest FINDINGS: Endotracheal tube overlies the midline, 1.3 cm superior to the laverne. Enteric tube courses below the diaphragm outside the [id number]. Left subclavian central venous catheter is unchanged with dista l tip terminating in expected location of the proximal SVC. Interstitial coarsening with bilateral ai rspace opacities appear stable from comparison. No pneumothorax or pleural effusion. No acute fractur e. Calcified granuloma of the mid to lower left lung. IMPRESSION: 1. Lines and tubes as above. 2. Unchanged interstitial coarsening with bilateral airspace opacities. ACT 112: Negative or not required by law. The above report was generated using voice recognition software. It may contain grammatical, syntax o r spelling errors. Electronically signed by: Gary Treadwell M.D. 07/21/2020 7:56 AM
--- NOTE | 2020-07-21 08:12 | Pharmacy Report ---
Pharmacy Abx Dose Short Note - Date of Service July 21, 2020 - Assessment & Plan Assessment 65 year old M receiving VANCOMYCIN 1500mg IV Q 12 hrs for MRSA vent associated pneumonia Day # 3 Plan Vancomycin * Trough level of 11.5 mcg/mL this AM at 0136, however vancomycin was infusing for 12 minutes prior to this level being drawn. Cannot interpret this level as a result. Will repeat level with 1400 dose today., Pharmacy will continue to follow and will adjust dose/frequency as necessary. Thank you.
[2020-07-21] MEDS: LACTULOSE SYRUP 20 GM/30 ML UDC PO SCH (09:23)
[2020-07-21] MEDS: FUROSEMIDE 40 MG in SYRINGE 0 ML IV SCH (09:23)
[2020-07-21] MEDS: ASPIRIN 81 MG CHEW PO SCH (09:23)
[2020-07-21] MEDS: dexAMETHasone 20 MG in DEXTROSE 5% 25 ML IV SCH (09:25)
[2020-07-21] MEDS: ENOXAPARIN INJ 40 MG/0.4 ML SYR SQ SCH ×2 (09:25→19:42)
[2020-07-21] MEDS: ATORVASTATIN 40 MG TAB PO SCH (09:25)
[2020-07-21] MEDS: POLYETHYLENE (MIRALAX) 17 GM PACK PO SCH (09:26)
[2020-07-21] MEDS: ACETAMINOPHEN SUSP 325 MG/10.15 ML UDC OG PRN (09:27)
[2020-07-21] MEDS: hydrALAZINE HCL 20 MG/ML VIAL IV PRN (09:28)
[2020-07-21] MEDS ORDERED: LABETALOL HCL IV 5 MG/ML 20ML IV STA (09:45)
[2020-07-21] MEDS ORDERED: LABETALOL HCL IV 5 MG/ML 20ML IV ONE (09:47)
--- NOTE | 2020-07-21 09:48 | Critical Care Progress Note ---
Date of Service July 21, 2020 Assessment & Plan (1) Acute hypoxemic respiratory failure: (2) Pneumonia due to COVID-19 virus: Patient was discussed in the multidisciplinary rounds. Impression: 65-year-old male with morbid obesity and ARDS secondary to COVID-19 pneumonia. He is failed conservative measures with oxygen and BiPAP and intubation mechanical ventilation were instituted Recommendations: 1. Neurologic: We have weaned off the propofol. Continue Precedex. We are weaning fentanyl. The goal is to have a complete sedation vacation. He continues to have acute encephalopathy likely multifactorial from infection, metabolic derangements and sedation effects. We are obtaining a noncontrast CT head today to evaluate his encephalopathy further. 2. Pulmonary: Severe ARDS secondary to COVID-19 pneumonia. We have been able to wean his ventilator support substantially. He is currently on SIMV. PEEP of 10 and FiO2 to 50%. Day #10 mechanical ventilation. Continue with the DEXA ARDS protocol. Status post bronchoscopy on 07/20/2020. Sputum cultures growing MRSA. Patient is currently on vancomycin. Continue MetaNebs every 6 hours along with CPT. Additionally, had a lengthy discussion with the patient's daughter Hailey and the patient's Tsering. They have decided that they would like to pursue a tracheostomy next week if that is deemed necessary. This is a significant change from earlier conversations which have indicated that they would not want the patient to undergo a tracheostomy placement. 3. Cardiovascular: History of coronary disease. He hemodynamically stable currently. History of CARSON, continue ASA. Continue high-dose statin given history of hyperlipidemia. 4. Renal: No current issues. Continue electrolyte replacement per ICU protocol. We will decrease Lasix dose to 40 mg IV daily. Replace electrolytes as needed. Completed 4 doses of acetazolamide 07/19/2020. 5. GI: No current issues. Continue PPI. Continue tube feeds. LFTs are stable. 6. ID: Completed 7 days worth of treatment for a urinary tract infection with Rocephin. Antibiotics have been escalated to vancomycin and cefepime on 07/19/2020. We will leave cefepime on for 48 hours if no significant gram- negative growth. Urinalysis on 07/19/2020 was largely unremarkable. Blood cultures from 07/19/2020 are negative to date. Staph aureus growing from the sputum culture. 7. Endocrine: Glycemic control per protocol. 8. Heme-onc: No current issues. DVT prophylaxis with Lovenox. Patient's overall prognosis remains guarded at this point time. (3) Hypervolemia: (4) Morbid obesity due to excess calories: (5) Acute encephalopathy: (6) Acute encephalopathy: Admission and Anticipated Discharge Date Admission Date: July 08, 2020 Subjective Patient continues to be severely encephalopathic. He is currently on 18 mg of propofol an hour, 0.6 of Precedex and 175 of fentanyl. We did wean off the propofol and wean the fentanyl to 75 mcg an hour. Subsequently, he became hypotensive and has required 1 dose of 10 mg hydralazine and a 10 mg dose of labetalol. Review of Systems Review of Systems: Unobtainable due to reduced consciousness Physical Exam Constitutional: + obese and + mechanically ventilated Neck: trachea midline, no thyromegaly Respiratory: normal respiratory effort, lungs clear to auscultation Cardiovascular: RRR, no murmur, no edema Gastrointestinal (Abdomen): normal bowel sounds, soft, nontender, no hepatosplenomegaly Musculoskeletal: Extremities: extremities normal to inspection Skin: no rashes, warm and dry Neurologic: Unable to follow commands. Lymphatic: no cervical lymphadenopathy Results & Data Results & Data ([facility]) Vital Signs (Past 12 Hours) Vital Signs Temp Pulse Pulse Resp BP Pulse Ox 07/21/20 09:38 22 07/21/20 08:10 27 H 07/21/20 08:00 60 140/63 07/21/20 07:44 58 L 62 27 H 93 07/21/20 07:12 101.3 F H 68 146/77 H 89 L 07/21/20 06:30 101.1 F H 59 L 90 07/21/20 06:15 101.3 F H 61 92 07/21/20 06:13 101.3 F H 63 121/64 92 07/21/20 06:00 68 86 L 07/21/20 05:45 101.3 F H 57 L 89 L 07/21/20 05:30 101.3 F H 59 L 90 07/21/20 05:15 101.3 F H 61 90 07/21/20 05:12 101.5 F H 67 134/75 90 07/21/20 05:00 101.5 F H 59 L 89 L 07/21/20 04:12 101.5 F H 63 125/66 91 07/21/20 04:00 101.7 F H 65 133/61 93 07/21/20 03:12 101.8 F H 55 L 114/64 90 07/21/20 03:00 101.8 F H 65 28 H 92 07/21/20 02:14 102.2 F H 75 128/68 87 L 07/21/20 02:00 102.2 F H 65 87 L 07/21/20 01:12 102.2 F H 55 L 129/72 91 07/21/20 01:00 102.2 F H 57 L 92 07/21/20 00:12 102.4 F H 57 L 129/73 91 07/21/20 00:00 102.4 F H 59 L 131/59 L 91 07/20/20 23:12 102.0 F H 57 L 129/68 90 07/20/20 23:00 102.0 F H 59 L 27 H 90 07/20/20 22:12 102.0 F H 56 L 123/70 95 07/20/20 22:00 102.0 F H 56 L 94 I reviewed the vital signs, labs and imaging Coding Level of Care Code 90667 Subseq Hosp Care Lvl 3 Diagnoses Acute hypoxemic respiratory failure J96.01 Pneumonia due to COVID-19 virus U07.1; J12.82 Hypervolemia E87.70 Morbid obesity due to excess calories E66.01 Acute encephalopathy G93.40 Acute encephalopathy G93.40
--- NOTE | 2020-07-21 10:30 | CT Scan Report ---
CT OF THE HEAD WITHOUT CONTRAST CLINICAL HISTORY: Altered mental status. COMPARISON STUDY: MRI of the brain September 25, 2014. CT DOSE: 691.05 mGy.cm TECHNIQUE: Helical axial images of the head were obtained without IV contrast. Automated exposure con trol was utilized for the study. A dose lowering technique was utilized adhering to the principles o f ALARA. FINDINGS: Endotracheal and nasogastric tubes are partially imaged. Exam is mildly compromised by marina fact but is diagnostic. No acute intracranial hemorrhage, midline shift or mass effect is present. Br ain volume is unremarkable. Basal cisterns are patent. There are no extra axial collections. Pickard-whi te differentiation is maintained. There are no findings to suggest acute dural sinus thrombosis or ac ros[place] territorial infarct. There is no calvarial fracture. A small amount of fluid within the bilateral mastoid air cells is likely related to intubation. Minimal secretions within the sinuses and nasopha rynx are likely related to intubation as well. IMPRESSION: No acute intracranial findings. ACT 112: Negative or not required by law. Electronically signed by: Leoncio Bernardo M.D. 07/21/2020 10:29 AM
[2020-07-21] MEDS: PANTOprazole 40 MG in SYRINGE 0 ML IV SCH (11:56)
[2020-07-21] MEDS ORDERED: STAT IV Infusion **Titration per Protocol STA (12:04)
[2020-07-21 12:12] LABS: iSTAT Art Bld Gas pCO2 Correct 49 mmHg (35-46); iSTAT Arterial Blood Gas HCO3 35 meg/L (19-24); iSTAT Arterial Blood Gas pCO2 45 mmHg (35-46); iSTAT Arterial Blood Gas pO2 65 mmHg (80-95); iSTAT Arterial Blood Gas pO2 C 73; iSTAT Carbon Dioxide 36 mmol/L (24-31); iSTAT FiO2 50 %; iSTAT Hematocrit 44 % (42-52); iSTAT Potassium 3.2 mmol/L (3.3-5.0); iSTAT Site Art Line; iSTAT Sodium 140 mmol/L (135-144)
[2020-07-21] MEDS: PEPTAMEN INTENSE VHP 1.0 CAL 1,000 ML BAG OG SCH (12:32)
[2020-07-21 12:58] LABS: BUN Creatinine Ratio 47.4 (10-20); Calcium 8.6 mg/dl (8.5-10.1); Creatinine Clr Calc Pharmacy 101.6 ml/min; Est GFR (African American) 98.1; Est GFR (Non-African American) 84.6
--- NOTE | 2020-07-21 13:20 | Hospitalist Progress Note ---
Date of Service July 21, 2020 Assessment & Plan (1) Pneumonia due to COVID-19 virus: Pneumonia due to COVID-19 He had a positive test 7 days [employer] at [place] with no previous treatment. Had difficulty with tolerating Vapotherm high flow nasal cannula and was not able to maintain pulse ox greater than 88% on max settings of high flow along with 15 L nonrebreather mask over his mouth Mentation began to worsen and he became hypercapnic as well on the morning of 07/11, also tachypneic Placed on trial of BiPAP and failed Chest x-ray and overall picture consistent with ARDS Transferred to ICU and was intubated and is mechanically ventilated as of the a.m. of 07/11 Remains intubated, day 10 of mechanical ventilation now on Precedex, titrating off Fentanyl family now indicates that they would want a tracheostomy next week if deemed necessary guarded prognosis -Appreciate pattern ruler management high dose Decadron at this time -Continue albuterol -He is outside the range for giving remdesivir or convalescent plasma as he is over 1 week out from diagnosis (2) Acute hypoxemic respiratory failure: As noted above severe ARDS, following ARDSnet protocol family would now WANT tracheostomy after further discussion would evaluate for this next week bronchoscopy on 07/20 for air leak ETT advanced and mucopurulent secretions aspirated from both airways better ventilation afterwards ICU managing (3) Sepsis: Sepsis in setting of COVID19 pneumonia with septic shock Now weaned off levophed on 07/15 now with fever 38, elevated WBC with decadron monitor closely placed on Cefepime 2000mg q8 and Vancomycin bronchial lavage with cultures, staph aureus stop Cefepime after 48 hours if no gram neg growth, continue Vanco (4) Acute kidney injury: Creatinine 2.38 upon admission, with recent 1.36 [employer] Has improved to 0.9 giving Lasix 40mg IV Continue to hold telmisartan/HCTZ and diclofenac Received another dose of IV Lasix 07/11 Follow CMP Follow urine output Placed Alicia catheter (5) Elevated troponin: likely secondary to myocardial demand ischemia Was minimally elevated at 0.035/0.019/0.02 ECG without ischemic changes (6) Anxiety: On lorazepam 1 mg 3 times daily at home Now receiving Versed as needed while ventilated (7) Hypokalemia: K is stable (8) Hypertension: Blood pressures were low, requiring pressor but now weaned off Levophed Holding home telmisartan/HCT for acute kidney injury Metoprolol on hold as well (9) Osteoarthritis: Hold diclofenac due to acute kidney injury (10) CAD (coronary artery disease), [place] coronary artery: With a history of coronary stent Troponin minimally elevated and stable x2 most likely secondary to myocardial demand ischemia from profound hypoxia -continue aspirin 81 mg daily given presence of stent -continue statin -holding metoprolol succinate 50 mg daily for hypotension (11) Hyperlipidemia: Continue atorvastatin 80 mg every morning triglycerides elevated on Propofol weaning off as tolerated, moving to Precedex (12) DVT prophylaxis: Lovenox 40 mg SQ every 12 FEN-no IV fluids other than medications, on tube feeds at 10 mL's per hour when not proned [id number], central venous catheter, Alicia catheter GI prophylaxis-IV Protonix Disposition-continued stay in ICU, prognosis remains guarded Full code Admission and Anticipated Discharge Date Admission Date: July 08, [address] Lawrence managing patient off Propofol, on Precedex, weaning Fentanyl, goal is to have sedation holiday still with encephalopathy, will check CT head has Staph aureus in sputum, treating with Vancomycin spiking fever of 38.7, day 10 of mechanical ventilation Review of Systems Review of Systems: Unobtainable due to cognitive status and Unobtainable due to endotracheal tube Physical Exam Constitutional: well developed, well nourished and + mechanically ventilated; no acute distress Respiratory: + tachypneic; no respiratory distress Auscultation: lungs clear to auscultation bilaterally Cardiovascular: RRR, no murmur, no edema Gastrointestinal (Abdomen): normal bowel sounds, soft, nontender, no hepatosplenomegaly Musculoskeletal: Head/Neck/Chest: normocephalic, head atraumatic and neck supple Extremities: extremities normal to inspection; no cyanosis, no clubbing and no petechiae Skin: no rashes, warm and dry Neurologic: CN's II-XI intact bilaterally and + obtunded; no focal motor deficits Results & Data Results & Data ([facility]) Vital Signs (Past 12 Hours) Vital Signs Temp Pulse Pulse Resp BP Pulse Ox 07/21/20 11:35 94 H 20 93 07/21/20 11:34 94 H 17 93 07/21/20 11:30 38.7 C H 98 H 93 07/21/20 11:13 38.7 C H 98 H 156/95 H 88 L 07/21/20 11:00 91 H 88 L 07/21/20 10:53 91 H 164/91 H 07/21/20 10:00 83 87 L 07/21/20 09:38 22 07/21/20 09:30 38.6 C H 77 89 L 07/21/20 09:13 38.8 C H 83 167/87 H 91 07/21/20 09:00 38.9 C H 77 93 07/21/20 08:30 38.8 C H 59 L 95 07/21/20 08:13 38.7 C H 65 141/77 H 96 07/21/20 08:10 27 H 07/21/20 08:00 38.7 C H 68 140/63 96 07/21/20 07:44 58 L 62 27 H 93 07/21/20 07:30 38.5 C H 63 89 L 07/21/20 07:12 38.5 C H 68 146/77 H 89 L 07/21/20 06:30 38.4 C H 59 L 90 07/21/20 06:15 38.5 C H 61 92 07/21/20 06:13 38.5 C H 63 121/64 92 07/21/20 06:00 68 86 L 07/21/20 05:45 38.5 C H 57 L 89 L 07/21/20 05:30 38.5 C H 59 L 90 07/21/20 05:15 38.5 C H 61 90 07/21/20 05:12 38.6 C H 67 134/75 90 07/21/20 05:00 38.6 C H 59 L 89 L 07/21/20 04:12 38.6 C H 63 125/66 91 07/21/20 04:00 38.7 C H 65 133/61 93 07/21/20 03:12 38.8 C H 55 L 114/64 90 07/21/20 03:00 38.8 C H 65 28 H 92 07/21/20 02:14 39.0 C H 75 128/68 87 L 07/21/20 02:00 39.0 C H 65 87 L Laboratory Results Laboratory Results - last 24 hr 07/20/20 07/20/20 07/21/20 16:13 20:50 00:20 WBC RBC Hgb POC Hgb Hct POC Hct MCV MCH MCHC RDW Std Deviation RDW Coeff of Fernanda Plt Count MPV Neutrophils % (Manual) Lymphocytes % (Manual) Monocytes % (Manual) Basophils % (Manual) Myelocytes % (Man) Neutrophils # (Manual) Total Absolute Neuts Lymphocytes # (Manual) Total Abs Lymphocytes Monocytes # (Manual) Basophils # (Manual) Myelocytes # (Manual) Sample Site POC pH POC pCO2 POC pO2 POC HCO3 POC Total CO2 POC Base Excess ABG pH (Temp Correct) ABG pCO2 (Temp Corrct POC ABG pO2 at Pt Temp POC ABG O2 Sat Tavo Test O2 Delivery Device POC O2 Rate Minute Ventilation POC FiO2 Tidal Volume PEEP Pressure Support Vent POC Sodium Sodium POC Potassium Potassium Chloride Carbon Dioxide Anion Gap BUN Creatinine Est Cr Clr Drug Dosing Est GFR ( Amer) Est GFR (Non-Af Amer) BUN/Creatinine Ratio Glucose POC Glucose 188 H 144 H 128 H Calcium Phosphorus Magnesium Vancomycin Trough 07/21/20 07/21/20 07/21/20 01:36 03:44 05:08 WBC RBC Hgb POC Hgb 12.6 L Hct POC Hct 37 L MCV MCH MCHC RDW Std Deviation RDW Coeff of Fernanda Plt Count MPV Neutrophils % (Manual) Lymphocytes % (Manual) Monocytes % (Manual) Basophils % (Manual) Myelocytes % (Man) Neutrophils # (Manual) Total Absolute Neuts Lymphocytes # (Manual) Total Abs Lymphocytes Monocytes # (Manual) Basophils # (Manual) Myelocytes # (Manual) Sample Site Art Line POC pH 7.45 POC pCO2 54 H POC pO2 81 POC HCO3 38 H POC Total CO2 39 H POC Base Excess 13.0 H ABG pH (Temp Correct) 7.422 ABG pCO2 (Temp Corrct 59 H POC ABG pO2 at Pt Temp 91 POC ABG O2 Sat 96.0 H Tavo Test NA O2 Delivery Device Ventilator POC O2 Rate 27 Minute Ventilation 8.4 POC FiO2 50 Tidal Volume 350 PEEP 14 Pressure Support Vent 12 POC Sodium 139 Sodium 142 POC Potassium 4.1 Potassium 4.0 Chloride 105 Carbon Dioxide 31 Anion Gap 6.0 BUN 42 H Creatinine 0.93 Est Cr Clr Drug Dosing 99.7 Est GFR ( Amer) 98.1 Est GFR (Non-Af Amer) 84.6 BUN/Creatinine Ratio 45.3 H Glucose 143 H POC Glucose Calcium 8.3 L Phosphorus 2.3 L Magnesium 2.3 Vancomycin Trough 11.5 07/21/20 07/21/20 07/21/20 05:08 05:14 07:28 WBC 18.01 H RBC 4.09 L Hgb 12.8 L POC Hgb Hct 39.4 L POC Hct MCV 96.3 MCH 31.3 MCHC 32.5 RDW Std Deviation 48.7 H RDW Coeff of Fernanda 13.9 Plt Count 147 MPV 10.6 H Neutrophils % (Manual) 77.0 Lymphocytes % (Manual) 5.1 Monocytes % (Manual) 9.4 Basophils % (Manual) 1.7 Myelocytes % (Man) 6.8 Neutrophils # (Manual) 13.87 H Total Absolute Neuts 13.87 H Lymphocytes # (Manual) 0.92 L Total Abs Lymphocytes 0.92 L Monocytes # (Manual) 1.69 H Basophils # (Manual) 0.31 H Myelocytes # (Manual) 1.22 H Sample Site POC pH POC pCO2 POC pO2 POC HCO3 POC Total CO2 POC Base Excess ABG pH (Temp Correct) ABG pCO2 (Temp Corrct POC ABG pO2 at Pt Temp POC ABG O2 Sat Tavo Test O2 Delivery Device POC O2 Rate Minute Ventilation POC FiO2 Tidal Volume PEEP Pressure Support Vent POC Sodium Sodium POC Potassium Potassium Chloride Carbon Dioxide Anion Gap BUN Creatinine Est Cr Clr Drug Dosing Est GFR ( Amer) Est GFR (Non-Af Amer) BUN/Creatinine Ratio Glucose POC Glucose 131 H 171 H Calcium Phosphorus Magnesium Vancomycin Trough 07/21/20 07/21/20 11:55 12:29 WBC RBC Hgb POC Hgb 15.0 Hct POC Hct 44 MCV MCH MCHC RDW Std Deviation RDW Coeff of Fernanda Plt Count MPV Neutrophils % (Manual) Lymphocytes % (Manual) Monocytes % (Manual) Basophils % (Manual) Myelocytes % (Man) Neutrophils # (Manual) Total Absolute Neuts Lymphocytes # (Manual) Total Abs Lymphocytes Monocytes # (Manual) Basophils # (Manual) Myelocytes # (Manual) Sample Site Art Line POC pH 7.50 H POC pCO2 45 POC pO2 65 L POC HCO3 35 H POC Total CO2 36 H POC Base Excess 12.0 H ABG pH (Temp Correct) 7.470 H ABG pCO2 (Temp Corrct 49 H POC ABG pO2 at Pt Temp 73 POC ABG O2 Sat 94.0 Tavo Test NA O2 Delivery Device Ventilator POC O2 Rate Minute Ventilation POC FiO2 50 Tidal Volume PEEP 10 Pressure Support Vent POC Sodium 140 Sodium 141 POC Potassium 3.2 L Potassium 3.0 L D Chloride 103 Carbon Dioxide 31 Anion Gap 7.0 BUN 44 H Creatinine 0.93 Est Cr Clr Drug Dosing 101.6 Est GFR ( Amer) 98.1 Est GFR (Non-Af Amer) 84.6 BUN/Creatinine Ratio 47.4 H Glucose 206 H POC Glucose Calcium 8.6 Phosphorus Magnesium Vancomycin Trough Medications Administered Current Inpatient Medications Acetaminophen (Acetaminophen Susp 325 Mg/10.15 Ml Udc) 650 mg OG Q6H PRN PRN Reason: Fever Stop: 08/12/20 03:28 Last Admin: 07/21/20 09:27 Dose: 650 mg Documented by: Albuterol (Albut/Ipratrop 3mg/0.5mg Neb 3 Ml Vial) 3 ml NEB Q4R PRN PRN Reason: Shortness Of Breath Or Wheezing Stop: 08/08/20 08:46 Last Admin: 07/21/20 11:34 Dose: 3 ml Documented by: Aspirin (Aspirin 81 Mg Chew) 81 mg PO QAM [facility] Stop: 08/11/20 09:59 Last Admin: 07/21/20 09:23 Dose: 81 mg Documented by: Atorvastatin Calcium (Atorvastatin 40 Mg Tab) 80 mg PO QAM [facility] Stop: 08/08/20 08:59 Last Admin: 07/21/20 09:25 Dose: 80 mg Documented by: Dextrose (Dextrose 50% 50 Ml Syringe) 25 - 50 ml IV UD PRN; Protocol PRN Reason: Hypoglycemia Protocol Stop: 08/11/20 10:59 Enoxaparin Sodium (Enoxaparin Inj 40 Mg/0.4 Ml Syr) 40 mg SQ Q12 [facility] Stop: 08/09/20 18:59 Last Admin: 07/21/20 09:25 Dose: 40 mg Documented by: Fentanyl Citrate (Fentanyl Bolus From Bag) 50 mcg IV Q60M PRN PRN Reason: Pain or Agitation Stop: 07/25/20 14:07 Last Admin: 07/19/20 10:38 Dose: 50 mcg Documented by: Glucagon (Glucagon For Inj 1 Mg Vial) 1 mg IM UD PRN; Protocol PRN Reason: Hypoglycemia Protocol Stop: 08/11/20 10:59 Glucose (Glucose 40% Gel 15 Gm Tube) 15 - 30 gm PO UD PRN; Protocol PRN Reason: Hypoglycemia Protocol Stop: 08/11/20 10:59 Glucose (Glucose 10 Tabs/Tube) 4 - 8 tabs PO UD PRN; Protocol PRN Reason: Hypoglycemia Protocol Stop: 08/11/20 10:59 Heparin Sodium (Beef Lung) (Heparin 10 Unit/Ml 5 Ml Flush) 5 ml FLUSH PRN PRN PRN Reason: Flush Stop: 08/12/20 22:46 Hydralazine HCl (Hydralazine Hcl 20 Mg/Ml Vial) 10 mg IV Q6H PRN PRN Reason: Sbp>160 Stop: 08/20/20 09:07 Last Admin: 07/21/20 09:28 Dose: 10 mg Documented by: Fentanyl Citrate (Fentanyl Drip) 1,250 mcg in 250 mls @ 10 mls/hr IV .Q25H [facility]ER[facility]; Protocol Stop: 07/25/20 14:14 Last Admin: 07/21/20 12:24 Dose: 50 mcg/hr, 10 mls/hr Documented by: Pantoprazole Sodium 40 mg/ (Syringe) 10 mls @ 5 mls/min IV DAILY@1100 [facility] Stop: 08/11/20 10:59 Last Admin: 07/21/20 11:56 Dose: 5 mls/min Documented by: Dexamethasone Sodium Phosphate (10 mg/ Syringe) 2.5 mls @ 1 mls/min IV DAILY [facility] Stop: 07/27/20 08:59 Vancomycin HCl 1,500 mg/ (Sodium Chloride) 530 mls @ 200 mls/hr IV Q12H [facility] Stop: 07/27/20 01:59 Last Infusion: 07/21/20 04:03 Dose: Infused Documented by: Cefepime HCl 2,000 mg/ Syringe 20 mls @ 5 mls/min IV Q8H [facility]; Protocol Stop: 07/26/20 20:59 Last Admin: 07/21/20 09:26 Dose: 5 mls/min Documented by: Dexmedetomidine HCl 400 mcg/ (Sodium Chloride) 100 mls @ 12.61 mls/hr IV .Q7H56M [facility]; Protocol Stop: 07/24/20 14:59 Last Titration: 07/21/20 07:05 Dose: 0.6 mcg/kg/hr, 18.9 mls/hr Documented by: Furosemide 40 mg/ Syringe 4 mls @ 4 mls/min IV DAILY [facility] Stop: 08/21/20 08:59 Nicardipine HCl 25 mg/ Sodium (Chloride) 250 mls @ 50 mls/hr IV .Q5H [facility]; Protocol Stop: 08/20/20 12:14 Insulin Aspart (Insulin Aspart 100 Units/Ml 3 Ml Pen) 0 units SC Q4 [facility]; Protocol Stop: 08/18/20 20:59 Last Admin: 07/21/20 12:28 Dose: 7 units Documented by: Miscellaneous (Carbohydrates For Hypoglycemia ) 15 - 30 gm PO UD PRN PRN Reason: Hypoglycemia Treatment Stop: 08/11/20 10:59 Miscellaneous Information (Vancomycin Consult Active) 1 ea N/A UD PRN PRN Reason: Consult Stop: 08/18/20 12:52 Miscellaneous Information (Pharmacy Glycemic Mgmt Consult) 1 ea N/A UD PRN PRN Reason: Consult Stop: 08/18/20 18:46 Multi-Ingredient Cream (Artificial Tears Op Oint 3.5 Gm Tube) 1 appln OP Q4H PRN PRN Reason: Anesthesia Stop: 08/10/20 23:48 Last Admin: 07/20/20 08:33 Dose: 1 appln Documented by: Nutritional Formula (Peptamen Intense Vhp 1.0 Fortunato 1,000 Ml Bag) 1,000 ml OG DAILY [facility]; Protocol Stop: 08/11/20 10:59 Last Admin: 07/21/20 12:32 Dose: 1,000 ml Documented by: Polyethylene Glycol (Polyethylene (Miralax) 17 Gm Pack) 17 gm PO QAM [facility] Stop: 08/16/20 09:59 Last Admin: 07/21/20 09:26 Dose: 17 gm Documented by: PG Care Time/CCT Total # of Minutes Spent Total Time Spent with Patient: Total time spent is greater than 50% in coordination of care (as documented) at patient's floor/unit and/or counseling patient: Coding Level of Care Code 88616 Subseq Hosp Care Lvl 2 Diagnoses Pneumonia due to COVID-19 virus U07.1; J12.82 Acute hypoxemic respiratory failure J96.01 Sepsis A41.9 Acute kidney injury N17.9 Elevated troponin R77.8 Anxiety F41.9 Hypokalemia E87.6 Hypertension I10 Osteoarthritis M19.90 CAD (coronary artery disease), [place] coronary artery I25.10 Hyperlipidemia E78.5 DVT prophylaxis Z29.9
--- NOTE | 2020-07-21 14:57 | Pharmacy Report ---
Pharmacy Abx Dose Short Note - Date of Service July 21, 2020 - Assessment & Plan Assessment 65 year old M receiving VANCOMYCIN + CEFEPIME for treatment of VAP MRSA growing in latest sputum cx (sensitive vanco however EUGENIO 2) Day # 3 of antimicrobial therapy Renal fxn appears stable based upon SCr and UOP Plan Vancomycin * Trough level of 10.8 mcg/mL is subtherapeutic and likely reflects inadequate AUC/EUGENIO target. Level was drawn at the appropriate time and prior doses hung mostly on time * Will increase to 1750mg Q 12 hrs * Goal trough level for pulm infxn : 15 to 20 mcg/mL or AUC/EUGENIO 400-600 * Will repeat trough level with 3rd maint dose Pharmacy will continue to follow and will adjust dose/frequency as necessary. Thank you.
[2020-07-21] MEDS ORDERED: POTASSIUM CHLORIDE 20 MEQ/15 ML UDC PO STA (15:12)
[2020-07-21] MEDS: POTASSIUM CHLORIDE / WTR 10 MEQ/100 ML PLCT IV SCH ×4 (16:05→19:41)
[2020-07-21] MEDS: niCARdipine 25 MG in SODIUM CHLORIDE 0.9% 240 ML IV SCH ×2 (17:15→19:42)
[2020-07-21] MEDS: VANCOMYCIN HCL 1,750 MG in SODIUM CHLORIDE 0.9% 500 ML IV SCH (20:59)
[2020-07-22] MEDS: INSULIN ASPART 100 UNITS/ML 3 ML PEN SC SCH ×6 (00:03→20:39)
[2020-07-22] MEDS: niCARdipine 25 MG in SODIUM CHLORIDE 0.9% 240 ML IV SCH ×3 (00:05→04:55)
[2020-07-22] MEDS: DEXMEDETOMIDINE HCL 400 MCG in 0.9 % SODIUM CHLORIDE 96 ML IV SCH ×5 (01:26→21:21)
[2020-07-22] MEDS: CEFEPIME 2,000 MG in SYRINGE 0 ML IV SCH (01:31)
[2020-07-22 04:24] LABS: iSTAT Art Bld Gas pCO2 Correct 50 mmHg (35-46); iSTAT Arterial Blood Gas HCO3 32 meg/L (19-24); iSTAT Arterial Blood Gas pCO2 46 mmHg (35-46); iSTAT Arterial Blood Gas pH 7.45 (7.35-7.45); iSTAT Arterial Blood Gas pO2 91 mmHg (80-95); iSTAT Arterial Blood Gas pO2 C 103; iSTAT Carbon Dioxide 33 mmol/L (24-31); iSTAT FiO2 45 %; iSTAT Hematocrit 37 % (42-52); iSTAT Hemoglobin 12.6 g/dl (14.0-18.0); iSTAT Potassium 4.5 mmol/L (3.3-5.0); iSTAT Site Art Line; iSTAT Sodium 139 mmol/L (135-144)
[2020-07-22 05:07] LABS: Hematocrit (blood only) 39.4 % (42-52); Mean Corpuscular Hemoglobin 31.7 pg (25-34); Mean Corpuscular Volume 96.1 fL (80-100); Mean Platelet Volume 10.7 fL (7.4-10.4); Platelet Count 130 K/uL (130-400); RDW Coefficient of Variation 13.9 % (11.5-14.5); RDW Standard Deviation 48.7 fL (36.4-46.3); White Blood Count 17.24 K/uL (4.8-10.8)
[2020-07-22 05:42] LABS: Basophils # (auto) 0.02 K/uL (0-0.2); Basophils % (auto) 0.1 %; Immature Granulocytes # (auto) 0.26 K/uL (0.00-0.02); Immature Granulocytes % (auto) 1.5 %; Lymphocytes # (auto) 1.54 K/uL (1.2-3.4); Lymphocytes % (auto) 8.9 %; Monocytes # (auto) 0.33 K/uL (0.11-0.59); Monocytes % (auto) 1.9 %; Neutrophils # (auto) 15.09 K/uL (1.4-6.5); Neutrophils % (auto) 87.6 %
[2020-07-22 06:26] LABS: BUN Creatinine Ratio 54.4 (10-20); Calcium 8.2 mg/dl (8.5-10.1); Creatinine Clr Calc Pharmacy 123.7 ml/min; Est GFR (African American) 109.4; Est GFR (Non-African American) 94.4; Magnesium 2.1 mg/dl (1.8-2.4); Phosphorus 1.4 mg/dl (2.5-4.9); Potassium 4.2 mmol/L (3.5-5.1)
[2020-07-22] MEDS ORDERED: SODIUM PHOSPHATE 3 MMOL/1 ML INFUSION IV STA ×2 (06:30→08:44)
[2020-07-22] MEDS ORDERED: SODIUM PHOSPHATE 40 MMOL in SODIUM CHLORIDE 0.9% 1000ML 1,000 ML IV ONE (06:45)
--- NOTE | 2020-07-22 07:06 | Hospitalist Progress Note ---
Date of Service July 22, 2020 Assessment & Plan (1) Pneumonia due to COVID-19 virus: Pneumonia due to COVID-19 He had a positive test 7 days [employer] at [facility] with no previous treatment. he got worse despite Vapotherm and BIPAP Chest x-ray and overall picture consistent with ARDS Transferred to ICU and was intubated and is mechanically ventilated as of the a.m. 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 at this time (2) Acute hypoxemic respiratory failure: As noted above severe ARDS, following ARDSnet protocol family would now WANT tracheostomy after further discussion would evaluate for this next week bronchoscopy on 07/20 for air leak ETT advanced and mucopurulent secretions aspirated from both airways better ventilation afterwards ICU managing he is on Precedex only, following some simple commands, intermittently on pressure support on ventilator (3) Sepsis: Sepsis in setting of COVID19 pneumonia with septic shock Now weaned off levophed on 07/15 now with fever 38.2, elevated WBC with decadron monitor closely placed on Cefepime 2000mg q8 and Vancomycin bronchial lavage with cultures, staph aureus stop Cefepime, continue Vanco, pharmacy adjusting dose for therapeutic range (4) Acute kidney injury: Creatinine 2.38 upon admission, with recent 1.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 [employer] Has improved to 0.7 giving Lasix 40mg IV daily to keep lungs dry Follow CMP Follow urine output Alicia catheter (5) Anxiety: On lorazepam 1 mg 3 times daily at home currently on Precedex for sedation (6) Hypokalemia: K is stable (7) Hypertension: BP stable today Holding home telmisartan/HCT for acute kidney injury Metoprolol on hold as well (8) CAD (coronary artery disease), [place] coronary artery: With a history of coronary stent Troponin minimally elevated and stable x2 most likely secondary to myocardial demand ischemia from profound hypoxia -continue aspirin 81 mg daily given presence of stent -continue statin -holding metoprolol succinate 50 mg daily for hypotension (9) Hyperlipidemia: Continue atorvastatin 80 mg every morning triglycerides were elevated on Propofol now on Precedex alone (10) DVT prophylaxis: Lovenox 40 mg SQ every 12 FEN- tube feeds GI prophylaxis-IV Protonix Disposition-continued stay in ICU, prognosis remains guarded, possible tracheostomy this week, currently treating staph aureus infection DNR Admission and Anticipated Discharge Date Admission Date: July 08, 2020 Subjective patient is off Fentanyl, on Precedex only intermittently following commands, wiggling toes Dr. Lawrence managing Review of Systems Review of Systems: Unobtainable due to endotracheal tube Physical Exam Constitutional: well developed, well nourished and + mechanically ventilated; no acute distress Respiratory: normal respiratory effort; no respiratory distress Auscultation: lungs clear to auscultation bilaterally Cardiovascular: RRR, no murmur, no edema Gastrointestinal (Abdomen): normal bowel sounds, soft, nontender, no hepatosplenomegaly Musculoskeletal: Head/Neck/Chest: normocephalic, head atraumatic and neck supple Extremities: extremities normal to inspection; no cyanosis, no clubbing and no petechiae Skin: no rashes, warm and dry Neurologic: CN's II-XI intact bilaterally and + obtunded; no focal motor deficits Results & Data Results & Data ([facility]) Vital Signs (Past 12 Hours) Vital Signs Temp Pulse Resp BP Pulse Ox 07/22/20 06:00 39.0 C H 70 94 07/22/20 05:13 39.0 C H 63 113/59 L 93 07/22/20 05:00 39.0 C H 68 94 07/22/20 04:13 38.9 C H 70 114/60 92 07/22/20 04:00 38.9 C H 64 151/62 H 94 07/22/20 03:15 65 18 94 07/22/20 03:13 38.8 C H 63 100/58 L 94 07/22/20 03:00 38.8 C H 62 91 07/22/20 02:45 38.7 C H 62 94 07/22/20 02:30 38.6 C H 68 93 07/22/20 02:15 38.6 C H 66 94 07/22/20 02:13 38.6 C H 65 109/56 L 93 07/22/20 02:00 38.5 C H 66 93 07/22/20 01:45 38.5 C H 70 93 07/22/20 01:30 38.5 C H 67 94 07/22/20 01:15 38.4 C H 72 93 07/22/20 01:13 38.4 C H 73 115/68 94 07/22/20 01:00 38.4 C H 62 94 07/22/20 00:13 38.2 C H 65 94/53 L 94 07/22/20 00:00 38.2 C H 66 119/57 L 94 07/21/20 23:53 75 16 93 07/21/20 23:13 38.0 C H 79 109/64 94 07/21/20 23:00 38.0 C H 68 93 07/21/20 22:13 37.8 C H 82 109/64 92 07/21/20 22:00 37.7 C H 84 91 07/21/20 21:13 37.7 C H 113 H 106/69 90 07/21/20 21:00 37.9 C H 124 H 91 07/21/20 20:16 38.4 C H 104 H 130/71 94 07/21/20 20:00 38.4 C H 102 H 149/64 H 96 07/21/20 19:13 38.4 C H 87 153/87 H 90 Laboratory Results Laboratory Results - last 24 hr 07/21/20 07/21/20 07/21/20 07:28 11:24 11:55 WBC RBC Hgb POC Hgb 15.0 Hct POC Hct 44 MCV MCH MCHC RDW Std Deviation RDW Coeff of Fernanda Plt Count MPV Immature Gran % (Auto) Neut % (Auto) Lymph % (Auto) Coke % (Auto) Eos % (Auto) Baso % (Auto) Neut # (Auto) Lymph # (Auto) Coke # (Auto) Eos # (Auto) Baso # (Auto) Immature Gran # (Auto) Sample Site Art Line POC pH 7.50 H POC pCO2 45 POC pO2 65 L POC HCO3 35 H POC Total CO2 36 H POC Base Excess 12.0 H ABG pH (Temp Correct) 7.470 H ABG pCO2 (Temp Corrct 49 H POC ABG pO2 at Pt Temp 73 POC ABG O2 Sat 94.0 Tavo Test NA O2 Delivery Device Ventilator POC FiO2 50 PEEP 10 POC Sodium 140 Sodium POC Potassium 3.2 L Potassium Chloride Carbon Dioxide Anion Gap BUN Creatinine Est Cr Clr Drug Dosing Est GFR ( Amer) Est GFR (Non-Af Amer) BUN/Creatinine Ratio Glucose POC Glucose 171 H 233 H Calcium Phosphorus Magnesium Vancomycin Trough 07/21/20 07/21/20 07/21/20 12:29 13:37 16:14 WBC RBC Hgb POC Hgb Hct POC Hct MCV MCH MCHC RDW Std Deviation RDW Coeff of Fernanda Plt Count MPV Immature Gran % (Auto) Neut % (Auto) Lymph % (Auto) Coke % (Auto) Eos % (Auto) Baso % (Auto) Neut # (Auto) Lymph # (Auto) Coke # (Auto) Eos # (Auto) Baso # (Auto) Immature Gran # (Auto) Sample Site POC pH POC pCO2 POC pO2 POC HCO3 POC Total CO2 POC Base Excess ABG pH (Temp Correct) ABG pCO2 (Temp Corrct POC ABG pO2 at Pt Temp POC ABG O2 Sat Tavo Test O2 Delivery Device POC FiO2 PEEP POC Sodium Sodium 141 POC Potassium Potassium 3.0 L D Chloride 103 Carbon Dioxide 31 Anion Gap 7.0 BUN 44 H Creatinine 0.93 Est Cr Clr Drug Dosing 101.6 Est GFR ( Amer) 98.1 Est GFR (Non-Af Amer) 84.6 BUN/Creatinine Ratio 47.4 H Glucose 206 H POC Glucose 258 H Calcium 8.6 Phosphorus Magnesium Vancomycin Trough 10.8 07/21/20 07/21/20 07/22/20 19:52 23:57 04:08 WBC RBC Hgb POC Hgb 12.6 L Hct POC Hct 37 L MCV MCH MCHC RDW Std Deviation RDW Coeff of Fernanda Plt Count MPV Immature Gran % (Auto) Neut % (Auto) Lymph % (Auto) Coke % (Auto) Eos % (Auto) Baso % (Auto) Neut # (Auto) Lymph # (Auto) Coke # (Auto) Eos # (Auto) Baso # (Auto) Immature Gran # (Auto) Sample Site Art Line POC pH 7.45 POC pCO2 46 POC pO2 91 POC HCO3 32 H POC Total CO2 33 H POC Base Excess 8.0 H ABG pH (Temp Correct) 7.420 ABG pCO2 (Temp Corrct 50 H POC ABG pO2 at Pt Temp 103 POC ABG O2 Sat 97.0 H Tavo Test NA O2 Delivery Device Ventilator POC FiO2 45 PEEP 10 POC Sodium 139 Sodium POC Potassium 4.5 Potassium Chloride Carbon Dioxide Anion Gap BUN Creatinine Est Cr Clr Drug Dosing Est GFR ( Amer) Est GFR (Non-Af Amer) BUN/Creatinine Ratio Glucose POC Glucose 216 H 189 H Calcium Phosphorus Magnesium Vancomycin Trough 07/22/20 07/22/20 07/22/20 04:11 04:40 04:40 WBC 17.24 H RBC 4.10 L Hgb 13.0 L POC Hgb Hct 39.4 L POC Hct MCV 96.1 MCH 31.7 MCHC 33.0 RDW Std Deviation 48.7 H RDW Coeff of Fernanda 13.9 Plt Count 130 MPV 10.7 H Immature Gran % (Auto) 1.5 Neut % (Auto) 87.6 Lymph % (Auto) 8.9 Coke % (Auto) 1.9 Eos % (Auto) 0.0 Baso % (Auto) 0.1 Neut # (Auto) 15.09 H Lymph # (Auto) 1.54 Coke # (Auto) 0.33 Eos # (Auto) 0.00 Baso # (Auto) 0.02 Immature Gran # (Auto) 0.26 H Sample Site POC pH POC pCO2 POC pO2 POC HCO3 POC Total CO2 POC Base Excess ABG pH (Temp Correct) ABG pCO2 (Temp Corrct POC ABG pO2 at Pt Temp POC ABG O2 Sat Tavo Test O2 Delivery Device POC FiO2 PEEP POC Sodium Sodium 142 POC Potassium Potassium 4.2 D Chloride 108 H Carbon Dioxide 30 Anion Gap 4.0 BUN 41 H Creatinine 0.76 Est Cr Clr Drug Dosing 123.7 Est GFR ( Amer) 109.4 Est GFR (Non-Af Amer) 94.4 BUN/Creatinine Ratio 54.4 H Glucose 187 H POC Glucose 178 H Calcium 8.2 L Phosphorus 1.4 L* Magnesium 2.1 Vancomycin Trough Medications Administered Current Inpatient Medications Acetaminophen (Acetaminophen Susp 325 Mg/10.15 Ml Udc) 650 mg OG Q6H PRN PRN Reason: Fever Stop: 08/12/20 03:28 Last Admin: 07/21/20 09:27 Dose: 650 mg Documented by: Albuterol (Albut/Ipratrop 3mg/0.5mg Neb 3 Ml Vial) 3 ml NEB Q4R PRN PRN Reason: Shortness Of Breath Or Wheezing Stop: 08/08/20 08:46 Last Admin: 07/21/20 19:35 Dose: 3 ml Documented by: Aspirin (Aspirin 81 Mg Chew) 81 mg PO QAM [facility] Stop: 08/11/20 09:59 Last Admin: 07/21/20 09:23 Dose: 81 mg Documented by: Atorvastatin Calcium (Atorvastatin 40 Mg Tab) 80 mg PO QAM [facility] Stop: 08/08/20 08:59 Last Admin: 07/21/20 09:25 Dose: 80 mg Documented by: Dextrose (Dextrose 50% 50 Ml Syringe) 25 - 50 ml IV UD PRN; Protocol PRN Reason: Hypoglycemia Protocol Stop: 08/11/20 10:59 Enoxaparin Sodium (Enoxaparin Inj 40 Mg/0.4 Ml Syr) 40 mg SQ Q12 PIERRE Stop: 08/09/20 18:59 Last Admin: 07/21/20 19:42 Dose: 40 mg Documented by: Fentanyl Citrate (Fentanyl Bolus From Bag) 50 mcg IV Q60M PRN PRN Reason: Pain or Agitation Stop: 07/25/20 14:07 Last Admin: 07/19/20 10:38 Dose: 50 mcg Documented by: Glucagon (Glucagon For Inj 1 Mg Vial) 1 mg IM UD PRN; Protocol PRN Reason: Hypoglycemia Protocol Stop: 08/11/20 10:59 Glucose (Glucose 40% Gel 15 Gm Tube) 15 - 30 gm PO UD PRN; Protocol PRN Reason: Hypoglycemia Protocol Stop: 08/11/20 10:59 Glucose (Glucose 10 Tabs/Tube) 4 - 8 tabs PO UD PRN; Protocol PRN Reason: Hypoglycemia Protocol Stop: 08/11/20 10:59 Heparin Sodium (Beef Lung) (Heparin 10 Unit/Ml 5 Ml Flush) 5 ml FLUSH PRN PRN PRN Reason: Flush Stop: 08/12/20 22:46 Hydralazine HCl (Hydralazine Hcl 20 Mg/Ml Vial) 10 mg IV Q6H PRN PRN Reason: Sbp>160 Stop: 08/20/20 09:07 Last Admin: 07/21/20 09:28 Dose: 10 mg Documented by: Fentanyl Citrate (Fentanyl Drip) 1,250 mcg in 250 mls @ 10 mls/hr IV .Q25H PIERRE; Protocol Stop: 07/25/20 14:14 Last Titration: 07/22/20 07:05 Dose: 50 mcg/hr, 10 mls/hr Documented by: Pantoprazole Sodium 40 mg/ (Syringe) 10 mls @ 5 mls/min IV DAILY@1100 [facility]ERRE Stop: 08/11/20 10:59 Last Admin: 07/21/20 11:56 Dose: 5 mls/min Documented by: Dexamethasone Sodium Phosphate (10 mg/ Syringe) 2.5 mls @ 1 mls/min IV DAILY [facility] Stop: 07/27/20 08:59 Cefepime HCl 2,000 mg/ Syringe 20 mls @ 5 mls/min IV Q8H [facility]; Protocol Stop: 07/26/20 20:59 Last Admin: 07/22/20 01:31 Dose: 5 mls/min Documented by: Dexmedetomidine HCl 400 mcg/ (Sodium Chloride) 100 mls @ 31.525 mls/hr IV .Q3H11M [facility]; Protocol Stop: 07/24/20 14:59 Last Titration: 07/22/20 07:05 Dose: 1 mcg/kg/hr, 31.5 mls/hr Documented by: Furosemide 40 mg/ Syringe 4 mls @ 4 mls/min IV DAILY [facility] Stop: 08/21/20 08:59 Nicardipine HCl 25 mg/ Sodium (Chloride) 250 mls @ 50 mls/hr IV .Q5H PIERRE; Protocol Stop: 08/20/20 12:14 Last Titration: 07/22/20 05:05 Dose: Infused Documented by: Vancomycin HCl 1,750 mg/ (Sodium Chloride) 535 mls @ 200 mls/hr IV Q12H [facility] Stop: 07/27/20 23:59 Last Infusion: 07/21/20 23:40 Dose: Infused Documented by: Sodium Phosphate 40 mmol/ (Sodium Chloride) 1,013.3333 mls @ 100 mls/hr IV ONE ONE Stop: 07/22/20 16:52 Insulin Aspart (Insulin Aspart 100 Units/Ml 3 Ml Pen) 0 units SC Q4 [facility]; Protocol Stop: 08/18/20 20:59 Last Admin: 07/22/20 04:13 Dose: 2 units Documented by: Miscellaneous (Carbohydrates For Hypoglycemia ) 15 - 30 gm PO UD PRN PRN Reason: Hypoglycemia Treatment Stop: 08/11/20 10:59 Miscellaneous Information (Vancomycin Consult Active) 1 ea N/A UD PRN PRN Reason: Consult Stop: 08/18/20 12:52 Miscellaneous Information (Pharmacy Glycemic Mgmt Consult) 1 ea N/A UD PRN PRN Reason: Consult Stop: 08/18/20 18:46 Multi-Ingredient Cream (Artificial Tears Op Oint 3.5 Gm Tube) 1 appln OP Q4H PRN PRN Reason: Anesthesia Stop: 08/10/20 23:48 Last Admin: 07/20/20 08:33 Dose: 1 appln Documented by: Nutritional Formula (Peptamen Intense Vhp 1.0 Fortunato 1,000 Ml Bag) 1,000 ml OG DAILY PIERRE; Protocol Stop: 08/11/20 10:59 Last Admin: 07/21/20 12:32 Dose: 1,000 ml Documented by: Polyethylene Glycol (Polyethylene (Miralax) 17 Gm Pack) 17 gm PO QAM [facility] Stop: 08/16/20 09:59 Last Admin: 07/21/20 09:26 Dose: 17 gm Documented by: PG Care Time/CCT Total # of Minutes Spent Total Time Spent with Patient: Total time spent is greater than 50% in coordination of care (as documented) at patient's floor/unit and/or counseling patient: Coding Level of Care Code 49554 Subseq Hosp Care Lvl 2 Diagnoses Pneumonia due to COVID-19 virus U07.1; J12.82 Acute hypoxemic respiratory failure J96.01 Sepsis A41.9 Acute kidney injury N17.9 Anxiety F41.9 Hypokalemia E87.6 Hypertension I10 CAD (coronary artery disease), [place] coronary artery I25.10 Hyperlipidemia E78.5 DVT prophylaxis Z29.9
[2020-07-22] MEDS: ALBUT/IPRATROP 3MG/0.5MG NEB 3 ML VIAL NEB PRN ×3 (07:16→19:48)
[2020-07-22] MEDS: POLYETHYLENE (MIRALAX) 17 GM PACK PO SCH (07:56)
[2020-07-22] MEDS: ENOXAPARIN INJ 40 MG/0.4 ML SYR SQ SCH ×2 (07:57→20:36)
[2020-07-22] MEDS: ASPIRIN 81 MG CHEW PO SCH (07:58)
[2020-07-22] MEDS: ATORVASTATIN 40 MG TAB PO SCH (07:58)
[2020-07-22] MEDS: dexAMETHasone 10 MG in SYRINGE 0 ML IV SCH (07:59)
[2020-07-22] MEDS: FUROSEMIDE 40 MG in SYRINGE 0 ML IV SCH (08:00)
--- NOTE | 2020-07-22 08:01 | XRay Report ---
XR chest 1V portable HISTORY: 65 years-old Male f/u acute respiratory failure COMPARISON: Chest radiograph 07/21/2020 TECHNIQUE: Portable AP view of the chest FINDINGS: Endotracheal tube overlies the midline, 1.7 cm superior to the laverne. Enteric tube courses below the diaphragm outside the [id number]. Unchanged positioning of a left subclavian central venous shahnaz ter. No pneumothorax or large pleural effusion. Unchanged interstitial coarsening with patchy bilater al airspace opacities. Calcified granuloma of the left lung base. No acute fracture. IMPRESSION: 1. Lines and tubes as above. 2. Unchanged mixed interstitial and alveolar opacities. ACT 112: Negative or not required by law. The above report was generated using voice recognition software. It may contain grammatical, syntax o r spelling errors. Electronically signed by: Gary Treadwell M.D. 07/22/2020 8:00 AM
--- NOTE | 2020-07-22 08:44 | Critical Care Progress Note ---
Date of Service July 22, 2020 Assessment & Plan (1) Acute hypoxemic respiratory failure: (2) Pneumonia due to COVID-19 virus: Patient was discussed in the multidisciplinary rounds. Impression: 65-year-old male with morbid obesity and ARDS secondary to COVID-19 pneumonia. He is failed conservative measures with oxygen and BiPAP and intubation mechanical ventilation were instituted Recommendations: 1. Neurologic: We are weaning the fentanyl off. Patient is only on Precedex at this time. He is intermittently following commands. He continues to have acute encephalopathy likely multifactorial from infection, metabolic derangements and sedation effects. Noncontrast CT head was negative. 2. Pulmonary: Severe ARDS secondary to COVID-19 pneumonia. He is currently on pressure support trials and doing relatively well. Day #11 mechanical ventilation. Continue with the DEXA ARDS protocol. Status post bronchoscopy on 07/20/2020. Sputum cultures growing MRSA. Patient is currently on vancomycin. Continue MetaNebs every 6 hours along with CPT. Additionally, had a lengthy discussion with the patient's daughter Hailey and the patient's Tsering. They have decided that they would like to pursue a tracheostomy next week if that is deemed necessary. This is a significant change from earlier conversations which have indicated that they would not want the patient to undergo a tracheostomy placement. 3. Cardiovascular: History of coronary disease. He hemodynamically stable currently. History of CARSON, continue ASA. Continue high-dose statin given history of hyperlipidemia. 4. Renal: No current issues. Continue electrolyte replacement per ICU protocol. Continue 40 mg IV daily of Lasix. Replace electrolytes as needed. 5. GI: Patient is now having significant bowel movements status post enemas and p.o. lactulose. P.o. lactulose was discontinued. Continue MiraLAX. 6. ID: Completed 7 days worth of treatment for a urinary tract infection with Rocephin. Antibiotics have been escalated to vancomycin and cefepime on 07/19/2020. I have discontinued cefepime as there has been no significant gram- negative growth. Continue vancomycin for MRSA. We will treat for 7 days. Pharmacy is assisting with dosing. Urinalysis on 07/19/2020 was largely unremarkable. Blood cultures from 07/19/2020 are negative to date. 7. Endocrine: Glycemic control per protocol. 8. Heme-onc: No current issues. DVT prophylaxis with Lovenox. Patient's overall prognosis remains guarded at this point time. (3) Hypervolemia: (4) Morbid obesity due to excess calories: (5) Acute encephalopathy: (6) MRSA pneumonia: Admission and Anticipated Discharge Date Admission Date: July 08, 2020 Subjective Patient currently on 50 mcg of fentanyl an hour and 1 mg Precedex now. Following commands intermittently such as wiggling toes. He has been on pressure support trials throughout the night. He is currently on 08/06. Review of Systems Review of Systems: Unobtainable due to endotracheal tube Physical Exam Constitutional: + obese and + mechanically ventilated Neck: trachea midline, no thyromegaly Respiratory: normal respiratory effort, lungs clear to auscultation Cardiovascular: RRR, no murmur, no edema Gastrointestinal (Abdomen): normal bowel sounds, soft, nontender, no hepatosplenomegaly Musculoskeletal: Extremities: extremities normal to inspection Skin: no rashes, warm and dry Neurologic: Follows commands intermittently. Lymphatic: no cervical lymphadenopathy Results & Data Results & Data ([facility]) Vital Signs (Past 12 Hours) Vital Signs Temp Pulse Pulse Resp BP Pulse Ox 07/22/20 07:39 74 21 92 07/22/20 07:37 70 18 93 07/22/20 07:34 70 18 93 07/22/20 06:00 102.2 F H 70 94 07/22/20 05:13 102.2 F H 63 113/59 L 93 07/22/20 05:00 102.2 F H 68 94 07/22/20 04:13 102.0 F H 70 114/60 92 07/22/20 04:00 102.0 F H 64 151/62 H 94 07/22/20 03:15 65 18 94 07/22/20 03:13 101.8 F H 63 100/58 L 94 07/22/20 03:00 101.8 F H 62 91 07/22/20 02:45 101.7 F H 62 94 07/22/20 02:30 101.5 F H 68 93 07/22/20 02:15 101.5 F H 66 94 07/22/20 02:13 101.5 F H 65 109/56 L 93 07/22/20 02:00 101.3 F H 66 93 07/22/20 01:45 101.3 F H 70 93 07/22/20 01:30 101.3 F H 67 94 07/22/20 01:15 101.1 F H 72 93 07/22/20 01:13 101.1 F H 73 115/68 94 07/22/20 01:00 101.1 F H 62 94 07/22/20 00:13 100.8 F H 65 94/53 L 94 07/22/20 00:00 100.8 F H 66 119/57 L 94 07/21/20 23:53 75 16 93 07/21/20 23:13 100.4 F H 79 109/64 94 07/21/20 23:00 100.4 F H 68 93 07/21/20 22:13 100.0 F H 82 109/64 92 07/21/20 22:00 99.9 F H 84 91 07/21/20 21:13 99.9 F H 113 H 106/69 90 07/21/20 21:00 100.2 F H 124 H 91 I reviewed the vital signs, labs and imaging Coding Level of Care Code 98975 Subs Hosp Care Lvl 3 Diagnoses Acute hypoxemic respiratory failure J96.01 Pneumonia due to COVID-19 virus U07.1; J12.82 Hypervolemia E87.70 Morbid obesity due to excess calories E66.01 Acute encephalopathy G93.40 MRSA pneumonia J15.212
--- NOTE | 2020-07-22 08:54 | Pharmacy Report ---
Pharmacy Glycemic Short Note 2 - Date of Service July 22, 2020 - Glycemic Short BSG Results (Last 24 hours): 07/21/20 07/21/20 07/21/20 11:24 12:29 16:14 Glucose 206 H POC Glucose 233 H 258 H 07/21/20 07/21/20 07/22/20 19:52 23:57 04:11 Glucose POC Glucose 216 H 189 H 178 H 07/22/20 07/22/20 04:40 08:23 Glucose 187 H POC Glucose 179 H OUTPATIENT ANTIDIABETIC REGIMEN: * n/a * A1c = 7.5% 07/20/20 ASSESSMENT: 07/22/20 * Patient's BSGs yesterday were [phone] mg/dL with fasting today of 179 mg/dL. Patient has had > 2 BSGs greater than 180 mg/dL so will start basal insulin. * Conservative start with 0.2 units/kg or half of weight-based stress of 2 dosing. Scale for this evening based upon weight-based dosing. * Patient to start dexamethasone 10 mg IV daily today. Tighten Novolog to weight-based stress of 3 dosing in attempt to accommodate changing stressors. 07/20/20 * Type 2 diabetic, intubated, sedated in ICU with resp failure from COVID19 viral pneumonia * DEXA-ARDS regimen continues, day 4/5 dexamethasone 20mg IV daily * Tube feeds continue at goal: Peptamen VHP @70cc/hr * BSGs well controlled despite these stressors with the use of correctional Novolog. Will add carb coverage at this time however to maintain BSGs less than 180. PLAN FOR INPATIENT GLYCEMIC CONTROL: * Basal insulin * Lantus 20 units x 1 then 0-15 units BID * Bolus insulin * NovoLog per scale Q 4 hrs * Goal Range: Low 110 mg/dL - High 140 mg/dL * Correction Factor: 15 mg/dL/unit * Nutritional / Prandial insulin per carb ratio of 1 unit per 5 grams CHO consumed
[2020-07-22] MEDS ORDERED: INSULIN GLARGINE SOLOSTAR 100 UNITS/ML 3 ML PEN SC SCH ×2 (09:00→21:00)
[2020-07-22] MEDS: PANTOprazole 40 MG in SYRINGE 0 ML IV SCH (10:17)
[2020-07-22] MEDS: VANCOMYCIN HCL 1,750 MG in SODIUM CHLORIDE 0.9% 500 ML IV SCH ×2 (10:17→21:22)
[2020-07-22] MEDS: PEPTAMEN INTENSE VHP 1.0 CAL 1,000 ML BAG OG SCH (10:17)
[2020-07-22 12:33] LABS: iSTAT Art Bld Gas pCO2 Correct 41 mmHg (35-46); iSTAT Art Bld Gas pH Corrected 7.504 (7.35-7.45); iSTAT Arterial Blood Gas HCO3 32 meg/L (19-24); iSTAT Arterial Blood Gas pCO2 39 mmHg (35-46); iSTAT Arterial Blood Gas pH 7.52 (7.35-7.45); iSTAT Arterial Blood Gas pO2 60 mmHg (80-95); iSTAT Arterial Blood Gas pO2 C 65; iSTAT Carbon Dioxide 33 mmol/L (24-31); iSTAT FiO2 50 %; iSTAT Hematocrit 40 % (42-52); iSTAT Hemoglobin 13.6 g/dl (14.0-18.0); iSTAT Potassium 4.1 mmol/L (3.3-5.0); iSTAT Site Art Line; iSTAT Sodium 141 mmol/L (135-144)
[2020-07-22] MEDS: hydrALAZINE HCL 20 MG/ML VIAL IV PRN (13:56)
[2020-07-22] MEDS ORDERED: oxyCODONE HCL SOLN 5 MG/5 ML UDC PO PRN (15:57)
[2020-07-22] MEDS ORDERED: HYDROmorphone INJ 0.5 MG/0.5 ML SYR IV STA (15:57)
[2020-07-22] MEDS ORDERED: HYDROmorphone INJ 0.5 MG/0.5 ML SYR IV PRN (15:58)
[2020-07-22] MEDS ORDERED: FUROSEMIDE 20 MG in SYRINGE 0 ML IV ONE (15:59)
[2020-07-22] MEDS ORDERED: FUROSEMIDE 40 MG/4 ML VIAL IV ONE (16:15)
--- NOTE | 2020-07-22 16:58 | Communication Note ---
Date of Service: July 22, 2020 Patient has been having increasing minute ventilation and worsening hypoxia this afternoon. We did have him on pressure support trials and he became very tachypneic. We have switched him over to pressure regulated volume control mode. I have placed an order for 0.5 mg IV Dilaudid and we gave him a dose of 5 mg oxycodone via his OG tube to help with ventilator synchrony. We did discontinue the fentanyl drip this morning. We restarted his Precedex drip at 1 mg an hour to promote ventilator synchrony. He has been following commands intermittently. He is profoundly weak and unable to raise his head off the bed. He will squeeze fingers on command. He continues to have hypoxia despite increasing his FiO2 to 60% and PEEP to 14. I think he will be slow to recover as he likely has underlying intrapulmonary shunt from atelectasis. His fever curve appears to be improving with IV vancomycin. We are obtaining a stat chest x-ray at this time. Respiratory therapy is continuing MetaNebs and chest percussive therapy. ABG analysis from 12:17 PM demonstrates acute respiratory alkalosis with metabolic alkalosis. He has severe hypoxia with a PaO2 of 60 on 50% FiO2 and a PEEP of 8. We have increase his tidal volume from 350 mL to 400 mL. He is pulling tidal volumes of 750 mL spontaneously. We will continue to closely monitor the situation. If he continues to have evidence of significant hypoxia, we may have to restart his fentanyl drip and even give a bolus of neuromuscular blockade. Additionally, he has had issues with hypertension and we have given him hydralazine 10 mg via IV. And orders placed for 10 mg IV every 6 hours for systolic blood pressure greater than 160. 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
[2020-07-22] MEDS: fentaNYL DRIP 1,250 MCG/250 ML BAG IV SCH (17:16)
--- NOTE | 2020-07-22 17:20 | XRay Report ---
XR chest 1V portable HISTORY: 65 years-old Male hypoxia acute hypoxia with respiratory failure COMPARISON: Chest radiograph of same day at 6:29 AM TECHNIQUE: Portable AP view of the chest FINDINGS: Endotracheal tube overlies the midline, 1.7 cm superior to the laverne. Enteric tube courses below the diaphragm outside the [id number]. Unchanged positioning of a left subclavian central venous shahnaz ter. No pneumothorax or large pleural effusion. Unchanged interstitial coarsening with patchy bilater al airspace opacities. Calcified granuloma of the left lung base. No acute fracture. IMPRESSION: 1. Lines and tubes as above. 2. Unchanged interstitial coarsening with airspace opacities. ACT 112: Negative or not required by law. The above report was generated using voice recognition software. It may contain grammatical, syntax o r spelling errors. Electronically signed by: Gary Treadwell M.D. 07/22/2020 5:19 PM
[2020-07-23] MEDS: INSULIN ASPART 100 UNITS/ML 3 ML PEN SC SCH ×6 (00:05→21:06)
[2020-07-23] MEDS: DEXMEDETOMIDINE HCL 400 MCG in 0.9 % SODIUM CHLORIDE 96 ML IV SCH ×7 (00:23→22:26)
[2020-07-23 04:09] LABS: iSTAT Art Bld Gas pCO2 Correct 47 mmHg (35-46); iSTAT Art Bld Gas pH Corrected 7.454 (7.35-7.45); iSTAT Arterial Blood Gas HCO3 33 meg/L (19-24); iSTAT Arterial Blood Gas pCO2 45 mmHg (35-46); iSTAT Arterial Blood Gas pH 7.47 (7.35-7.45); iSTAT Arterial Blood Gas pO2 100 mmHg (80-95); iSTAT Arterial Blood Gas pO2 C 108; iSTAT Carbon Dioxide 34 mmol/L (24-31); iSTAT Hematocrit 39 % (42-52); iSTAT Hemoglobin 13.3 g/dl (14.0-18.0); iSTAT Site Art Line; iSTAT Sodium 140 mmol/L (135-144)
[2020-07-23] MEDS: PEPTAMEN INTENSE VHP 1.0 CAL 1,000 ML BAG OG SCH (04:32)
[2020-07-23 05:01] LABS: Basophils # (auto) 0.01 K/uL (0-0.2); Basophils % (auto) 0.1 %; Eosinophils # (auto) 0.01 K/uL (0-0.5); Eosinophils % (auto) 0.1 %; Hematocrit (blood only) 39.5 % (42-52); Hemoglobin 12.9 g/dL (14.0-18.0); Immature Granulocytes # (auto) 0.11 K/uL (0.00-0.02); Immature Granulocytes % (auto) 0.7 %; Lymphocytes # (auto) 1.17 K/uL (1.2-3.4); Lymphocytes % (auto) 7.2 %; Mean Corpuscular Hgb Conc 32.7 g/dL (32-36); Mean Platelet Volume 10.4 fL (7.4-10.4); Monocytes # (auto) 0.73 K/uL (0.11-0.59); Monocytes % (auto) 4.5 %; Neutrophils % (auto) 87.4 %; Platelet Count 119 K/uL (130-400); RDW Coefficient of Variation 14.2 % (11.5-14.5); Red Blood Count 4.16 M/uL (4.7-6.1); White Blood Count 16.23 K/uL (4.8-10.8)
[2020-07-23 05:18] LABS: BUN Creatinine Ratio 57.4 (10-20); Calcium 8.7 mg/dl (8.5-10.1); Creatinine Clr Calc Pharmacy 123.7 ml/min; Est GFR (African American) 109.4; Est GFR (Non-African American) 94.4; Magnesium 2.5 mg/dl (1.8-2.4); Potassium 4.1 mmol/L (3.5-5.1)
[2020-07-23 05:21] LABS: Phosphorus 2.4 mg/dl (2.5-4.9)
[2020-07-23] MEDS ORDERED: POTASSIUM PHOS 3 MMOL/1 ML INFUSION IV STA (05:32)
[2020-07-23] MEDS ORDERED: POTASSIUM PHOSPHATE 21 MMOL in SODIUM CHLORIDE 0.9% 500 ML IV ONE (06:00)
[2020-07-23] MEDS: ALBUT/IPRATROP 3MG/0.5MG NEB 3 ML VIAL NEB PRN ×3 (07:45→15:49)
[2020-07-23] MEDS: dexAMETHasone 10 MG in SYRINGE 0 ML IV SCH (08:40)
[2020-07-23] MEDS: ENOXAPARIN INJ 40 MG/0.4 ML SYR SQ SCH ×2 (08:40→20:54)
[2020-07-23] MEDS: POLYETHYLENE (MIRALAX) 17 GM PACK PO SCH (08:41)
[2020-07-23] MEDS: ASPIRIN 81 MG CHEW PO SCH (08:41)
[2020-07-23] MEDS: ATORVASTATIN 40 MG TAB PO SCH (08:41)
[2020-07-23] MEDS: FUROSEMIDE 40 MG in SYRINGE 0 ML IV SCH (08:42)
--- NOTE | 2020-07-23 08:46 | XRay Report ---
XR chest 1V portable CLINICAL HISTORY: Respiratory distress COMPARISON STUDY: July 22, 2020 FINDINGS: There is an endotracheal tube 8 mm above the laverne. There is a left subclavian central pietro ous catheter unchanged in position. There is a nasogastric tube present which passes into the stomach . The cardiac and mediastinal contours remain stable. There are persistent bilateral pulmonary airspa ce opacities.[ IMPRESSION: No significant change from the preceding study. Persistent bilateral pulmonary airspace o pacities ACT 112: Negative or not required by law. Electronically signed by: Jimmie Manuel M.D. 07/23/2020 8:44 AM
[2020-07-23] MEDS ORDERED: INSULIN HUMAN NPH SC ONE ×2 (09:00→20:00)
[2020-07-23] MEDS ORDERED: VANCOMYCIN TROUGH ONE (09:30)
[2020-07-23] MEDS ORDERED: LOSARTAN POTASSIUM 25 MG TAB PO ONE (10:15)
[2020-07-23] MEDS: VANCOMYCIN HCL 1,750 MG in SODIUM CHLORIDE 0.9% 500 ML IV SCH (10:19)
[2020-07-23] MEDS ORDERED: TELMISARTAN 40 MG TAB PO ONE (10:30)
--- NOTE | 2020-07-23 11:08 | Pharmacy Report ---
Pharmacy Glycemic Short Note 2 - Date of Service July 23, 2020 - Glycemic Short BSG Results (Last 24 hours): 07/22/20 07/22/20 07/22/20 12:15 15:38 20:33 Glucose POC Glucose 238 H 228 H 224 H 07/23/20 07/23/20 07/23/20 00:01 03:14 04:36 Glucose 146 H POC Glucose 179 H 167 H 07/23/20 08:13 Glucose POC Glucose 164 H OUTPATIENT ANTIDIABETIC REGIMEN: * n/a * A1c = 7.5% 07/20/20 ASSESSMENT: 07/23 * Over the last 24 hrs 90 units SQ insulin administered * Mid-day BSG elevation again seen, this seems to be the recurring pattern and likely associated with AM admin of IV dexamethasone. He is on Day 2 of 5 of dexamethasone 10mg IV daily. Will convert basal insulin to NPH BID and utilize a larger dose in AM to address mid-day BSG rise * He remains on vent, sedation has been titrated down, he remains febrile, abx being changed due to concern for slow response to vancomycin, new abx Linezolid will provide greater IV dextrose load, TF continue at goal * Will increase correctional insulin dose slightly, however primary change to today's regimen will be larger AM basal insulin dose 07/22 * Patient's BSGs yesterday were [phone] mg/dL with fasting today of 179 mg/dL. Patient has had > 2 BSGs greater than 180 mg/dL so will start basal insulin. * Conservative start with 0.2 units/kg or half of weight-based stress of 2 dosing. Scale for this evening based upon weight-based dosing. * Patient to start dexamethasone 10 mg IV daily today. Tighten Novolog to weight-based stress of 3 dosing in attempt to accommodate changing stressors. 07/20 * Type 2 diabetic, intubated, sedated in ICU with resp failure from COVID19 viral pneumonia * DEXA-ARDS regimen continues, day 4/5 dexamethasone 20mg IV daily * Tube feeds continue at goal: Peptamen VHP @70cc/hr * BSGs well controlled despite these stressors with the use of correctional Novolog. Will add carb coverage at this time however to maintain BSGs less than 180. PLAN FOR INPATIENT GLYCEMIC CONTROL: * Basal insulin * NPH 30 units this AM, then 0-10 units this PM per scale (0 units if BSG less than 110, 5 units if BSG 110-140, 10 units if BSG above 140) * Bolus insulin * NovoLog per scale Q 4 hrs * Goal Range: Low 110 mg/dL - High 140 mg/dL * Correction Factor: 12 mg/dL/unit * Nutritional / Prandial insulin per carb ratio of 1 unit per 4 grams CHO consumed
[2020-07-23] MEDS: LINEZOLID 600 MG/300 ML BAG IV SCH (11:28)
[2020-07-23] MEDS: PANTOprazole 40 MG in SYRINGE 0 ML IV SCH (11:30)
[2020-07-23] MEDS: ACETAMINOPHEN SUSP 325 MG/10.15 ML UDC OG PRN (13:45)
--- NOTE | 2020-07-23 14:15 | Critical Care Progress Note ---
Date of Service July 23, 2020 Assessment & Plan (1) Acute hypoxemic respiratory failure: (2) Pneumonia due to COVID-19 virus: Patient was discussed in the multidisciplinary rounds. Impression: 65-year-old male with morbid obesity and ARDS secondary to COVID-19 pneumonia. He is failed conservative measures with oxygen and BiPAP and intubation mechanical ventilation were instituted Recommendations: 1. Neurologic: Patient is only on Precedex at this time. We can wean this further. He is intermittently following commands. He continues to have acute encephalopathy likely multifactorial from infection, metabolic derangements and sedation effects. Noncontrast CT head was negative. I will order an MRI of his brain to further evaluate his encephalopathy. EEG may be required as well. 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 2. Pulmonary: Severe ARDS secondary to COVID-19 pneumonia. He is currently on pressure support trials and doing relatively well. Day #12 mechanical ventilation. Continue with the DEXA ARDS protocol. Status post bronchoscopy on 07/20/2020. Sputum cultures growing MRSA. Patient is currently on vancomycin. Continue MetaNebs every 6 hours along with CPT. Patient will likely need a tracheostomy this week as he has been difficult to wean off the ventilator and has been having a poor mental status. 3. Cardiovascular: History of coronary disease. He hemodynamically stable currently. History of CARSON, continue ASA. Continue high-dose statin given history of hyperlipidemia. Started the patient on low-dose losartan and metoprolol. He has underlying sinus tachycardia. 4. Renal: No current issues. Continue electrolyte replacement per ICU protocol. Continue 40 mg IV daily of Lasix. Replace electrolytes as needed. 5. GI: Continue tube feeds. Continue MiraLAX. 6. ID: Completed 7 days worth of treatment for a urinary tract infection with Rocephin. Switch from vancomycin to linezolid on 07/23/2020 due to difficulty of dosing related to his obesity. We are treating an MRSA pneumonia. 7. Endocrine: Glycemic control per protocol. 8. Heme-onc: No current issues. DVT prophylaxis with Lovenox. Patient's overall prognosis remains guarded at this point time. I discussed the care with the patient's daughter who again reiterated that they would like to pursue a tracheostomy at this time. They are also interested in the results of the MRI of the brain. (3) Hypervolemia: (4) Morbid obesity due to excess calories: (5) Acute encephalopathy: (6) MRSA pneumonia: Admission and Anticipated Discharge Date Admission Date: July 08, 2020 Subjective Patient seen and examined this morning. He continues to follow commands intermittently. He is still very encephalopathic and weak. No significant events overnight. He has been on PRVC/SIMV. He is currently on Precedex. He is off of all fentanyl. He has not required any as needed pain medications overnight. Review of Systems Review of Systems: All systems reviewed & are unremarkable except as noted in HPI & below Physical Exam Constitutional: + obese and + mechanically ventilated Neck: trachea midline, no thyromegaly Respiratory: normal respiratory effort, lungs clear to auscultation Cardiovascular: RRR, no murmur, no edema Gastrointestinal (Abdomen): normal bowel sounds, soft, nontender, no hepatosplenomegaly Musculoskeletal: Extremities: extremities normal to inspection Skin: no rashes, warm and dry Neurologic: Follows commands intermittently. Lymphatic: no cervical lymphadenopathy Results & Data Results & Data ([facility]) Vital Signs (Past 12 Hours) Vital Signs Temp Pulse Resp BP Pulse Ox 07/23/20 12:13 100.8 F H 96 H 123/64 89 L 07/23/20 12:00 100.8 F H 91 H 88 L 07/23/20 11:30 89 26 H 90 07/23/20 11:14 101.1 F H 85 115/64 90 07/23/20 11:00 101.1 F H 88 90 07/23/20 10:15 101.1 F H 91 H 90 07/23/20 10:14 101.1 F H 98 H 140/67 91 07/23/20 10:00 101.1 F H 92 H 89 L 07/23/20 09:13 100.9 F H 81 130/67 90 07/23/20 09:00 100.9 F H 80 90 07/23/20 08:46 100.9 F H 86 129/80 91 07/23/20 08:14 100.9 F H 77 122/59 L 90 07/23/20 08:00 100.8 F H 82 90 07/23/20 07:43 100.9 F H 81 134/76 92 07/23/20 07:30 82 27 H 92 07/23/20 07:00 101.1 F H 71 93 07/23/20 06:00 100.9 F H 62 93 07/23/20 05:00 100.9 F H 65 92 07/23/20 04:00 100.9 F H 79 159/73 H 95 07/23/20 03:25 81 25 H 93 07/23/20 03:00 100.9 F H 74 95 07/23/20 02:13 100.9 F H 73 123/74 94 I reviewed the vital signs, labs and imaging Coding Level of Care Code Critical Care 1st 30-74 mins Diagnoses Acute hypoxemic respiratory failure J96.01 Pneumonia due to COVID-19 virus U07.1; J12.82 Hypervolemia E87.70 Morbid obesity due to excess calories E66.01 Acute encephalopathy G93.40 MRSA pneumonia J15.212 Time Spent (min) 31
--- NOTE | 2020-07-23 18:16 | Hospitalist Progress Note ---
Date of Service July 23, 2020 Assessment & Plan (1) Pneumonia due to COVID-19 virus: Pneumonia due to COVID-19 He had a positive test 7 days [facility] with no previous treatment. he got worse despite Vapotherm and BIPAP Chest x-ray and overall picture consistent with ARDS Transferred to ICU and was intubated and is mechanically ventilated as of the a.m. of 07/11 Remains intubated, day 12 of mechanical ventilation now on Precedex, off Fentanyl, intermittently following commands but remains encephalopathic Now with MRSA PNA-fevers resolving again, on Vanco and switched to linezolid family now indicates that they would want a tracheostomy, defer to ICU on timing of this procedure guarded prognosis -Appreciate security solutions architect management high dose Decadron at this time -brain MRI for encephalopathy (2) Acute hypoxemic respiratory failure: As noted above severe ARDS, following ARDSnet protocol family would now WANT tracheostomy after further discussion would evaluate for this next week bronchoscopy on 07/20 for air leak ETT advanced and mucopurulent secretions aspirated from both airways better ventilation afterwards ICU managing he is on Precedex only, following some simple commands, intermittently on pressure support on ventilator (3) Sepsis: Sepsis in setting of COVID19 pneumonia with septic shock Now weaned off levophed on 07/15 fevers as above now improving after tx for MRSA PNA monitor closely -changing Vancomycin to linezolid (4) Acute kidney injury: Creatinine 2.38 upon admission, with recent 1.36 ADMISSION LIAISON Has improved to 0.7 giving Lasix 40mg IV daily to keep lungs dry Follow CMP Follow urine output Alicia catheter (5) Anxiety: On lorazepam 1 mg 3 times daily at home currently on Precedex for sedation (6) Hypokalemia: K is stable (7) Hypertension: BP stable today held home telmisartan/HCT for acute kidney injury, but now restarting home telmisartan -restarted ow dose Metoprolol 12.5mg po bid (8) CAD (coronary artery disease), [place] coronary artery: With a history of coronary stent Troponin minimally elevated and stable x2 most likely secondary to myocardial demand ischemia from profound hypoxia -continue aspirin 81 mg daily given presence of stent -continue statin -restarted metoprolol (9) Hyperlipidemia: Continue atorvastatin 80 mg every morning triglycerides were elevated on Propofol now on Precedex alone (10) Diabetes mellitus type 2 in obese: HgbA1C 7.5% here With hyperglycemia in setting of COVID/Sepsis and steroi duse -continue insulin (11) DVT prophylaxis: Lovenox 40 mg SQ every 12 FEN- tube feeds GI prophylaxis-IV Protonix Disposition-continued stay in ICU, prognosis remains guarded, possible tracheostomy this week, currently treating staph aureus infection DNR Admission and Anticipated Discharge Date Admission Date: July 08, 2020 Subjective Pt remains intubated, on Precedex and trying to wean off. Was more hypoxic yesterday evening. Remains encephalopathic and is going for brain MRI this evening. Review of Systems Review of Systems: Unobtainable due to endotracheal tube and Unobtainable due to reduced consciousness Physical Exam Constitutional: WD/WN, vitals as above + obese and + mechanically ventilated; no acute distress Results & Data Results & Data ([facility]) Vital Signs (Past 12 Hours) Vital Signs Temp Pulse Resp BP Pulse Ox 07/23/20 18:00 37.9 C H 114 H 93 07/23/20 17:13 37.9 C H 124 H 131/77 93 07/23/20 17:00 37.9 C H 119 H 92 07/23/20 16:14 37.8 C H 121 H 109/62 92 07/23/20 16:00 37.8 C H 120 H 91 07/23/20 15:40 115 H 27 H 94 07/23/20 15:14 37.8 C H 120 H 120/57 L 94 07/23/20 15:00 37.8 C H 109 H 92 07/23/20 14:13 37.9 C H 106 H 108/63 93 07/23/20 14:00 37.9 C H 104 H 92 07/23/20 13:13 38.0 C H 98 H 97/62 L 90 07/23/20 13:00 38.1 C H 97 H 90 07/23/20 12:13 38.2 C H 96 H 123/64 89 L 07/23/20 12:00 38.2 C H 91 H 88 L 07/23/20 11:30 89 26 H 90 07/23/20 11:14 38.4 C H 85 115/64 90 07/23/20 11:00 38.4 C H 88 90 07/23/20 10:15 38.4 C H 91 H 90 07/23/20 10:14 38.4 C H 98 H 140/67 91 07/23/20 10:00 38.4 C H 92 H 89 L 07/23/20 09:13 38.3 C H 81 130/67 90 07/23/20 09:00 38.3 C H 80 90 07/23/20 08:46 38.3 C H 86 129/80 91 07/23/20 08:14 38.3 C H 77 122/59 L 90 07/23/20 08:00 38.2 C H 82 90 07/23/20 07:43 38.3 C H 81 134/76 92 07/23/20 07:30 82 27 H 92 07/23/20 07:00 38.4 C H 71 93 Laboratory Results 07/23/20 07/23/20 07/23/20 Range/Units 15:49 11:48 09:41 WBC (4.8-10.8) K/uL RBC (4.7-6.1) M/uL Hgb (14.0-18.0) g/dL POC Hgb (14.0-18.0) g/dl Hct (42-52) % POC Hct (42-52) % MCV (80-100) fL MCH (25-34) pg MCHC (32-36) g/dL RDW Std Deviation (36.4-46.3) fL RDW Coeff of Fernanda (11.5-14.5) % Plt Count (130-400) K/uL MPV (7.4-10.4) fL Immature Gran % (Auto) % Neut % (Auto) % Lymph % (Auto) % Barrow % (Auto) % Eos % (Auto) % Baso % (Auto) % Neut # (Auto) (1.4-6.5) K/uL Lymph # (Auto) (1.2-3.4) K/uL Barrow # (Auto) (0.11-0.59) K/uL Eos # (Auto) (0-0.5) K/uL Baso # (Auto) (0-0.2) K/uL Immature Gran # (Auto) (0.00-0.02) K/uL Sample Site POC pH (7.35-7.45) POC pCO2 (35-46) mmHg POC pO2 (80-95) mmHg POC HCO3 (19-24) nakul/L POC Total CO2 (24-31) mmol/L POC Base Excess (-9-1.8) nakul/L ABG pH (Temp Correct) (7.35-7.45) ABG pCO2 (Temp Corrct (35-46) mmHg POC ABG pO2 at Pt Temp POC ABG O2 Sat (90-95) % Tavo Test O2 Delivery Device POC O2 Rate Minute Ventilation Tidal Volume PEEP POC Sodium (135-144) mmol/L Sodium (136-145) mmol/L POC Potassium (3.3-5.0) mmol/L Potassium (3.5-5.1) mmol/L Chloride (98-107) mmol/L Carbon Dioxide (21-32) mmol/L Anion Gap (3-11) BUN (7-18) mg/dl Creatinine (0.6-1.4) mg/dl Est Cr Clr Drug Dosing ml/min Est GFR ( Amer) Est GFR (Non-Af Amer) BUN/Creatinine Ratio (10-20) Glucose (70-99) mg/dl POC Glucose 212 H 192 H (70-99) mg/dl Calcium (8.5-10.1) mg/dl Phosphorus (2.5-4.9) mg/dl Magnesium (1.8-2.4) mg/dl Vancomycin Trough 14.9 (See Comment) mcg/ml 07/23/20 07/23/20 07/23/20 Range/Units 08:13 04:36 04:36 WBC 16.23 H (4.8-10.8) K/uL RBC 4.16 L (4.7-6.1) M/uL Hgb 12.9 L (14.0-18.0) g/dL POC Hgb (14.0-18.0) g/dl Hct 39.5 L (42-52) % POC Hct (42-52) % MCV 95.0 (80-100) fL MCH 31.0 (25-34) pg MCHC 32.7 (32-36) g/dL RDW Std Deviation 49.0 H (36.4-46.3) fL RDW Coeff of Fernanda 14.2 (11.5-14.5) % Plt Count 119 L (130-400) K/uL MPV 10.4 (7.4-10.4) fL Immature Gran % (Auto) 0.7 % Neut % (Auto) 87.4 % Lymph % (Auto) 7.2 % Barrow % (Auto) 4.5 % Eos % (Auto) 0.1 % Baso % (Auto) 0.1 % Neut # (Auto) 14.20 H (1.4-6.5) K/uL Lymph # (Auto) 1.17 L (1.2-3.4) K/uL Barrow # (Auto) 0.73 H (0.11-0.59) K/uL Eos # (Auto) 0.01 (0-0.5) K/uL Baso # (Auto) 0.01 (0-0.2) K/uL Immature Gran # (Auto) 0.11 H (0.00-0.02) K/uL Sample Site POC pH (7.35-7.45) POC pCO2 (35-46) mmHg POC pO2 (80-95) mmHg POC HCO3 (19-24) nakul/L POC Total CO2 (24-31) mmol/L POC Base Excess (-9-1.8) nakul/L ABG pH (Temp Correct) (7.35-7.45) ABG pCO2 (Temp Corrct (35-46) mmHg POC ABG pO2 at Pt Temp POC ABG O2 Sat (90-95) % Tavo Test O2 Delivery Device POC O2 Rate Minute Ventilation Tidal Volume PEEP POC Sodium (135-144) mmol/L Sodium 144 (136-145) mmol/L POC Potassium (3.3-5.0) mmol/L Potassium 4.1 (3.5-5.1) mmol/L Chloride 108 H (98-107) mmol/L Carbon Dioxide 32 (21-32) mmol/L Anion Gap 4.0 (3-11) BUN 44 H (7-18) mg/dl Creatinine 0.76 (0.6-1.4) mg/dl Est Cr Clr Drug Dosing 123.7 ml/min Est GFR ( Amer) 109.4 Est GFR (Non-Af Amer) 94.4 BUN/Creatinine Ratio 57.4 H (10-20) Glucose 146 H (70-99) mg/dl POC Glucose 164 H (70-99) mg/dl Calcium 8.7 (8.5-10.1) mg/dl Phosphorus 2.4 L D (2.5-4.9) mg/dl Magnesium 2.5 H (1.8-2.4) mg/dl Vancomycin Trough (See Comment) mcg/ml 07/23/20 07/23/20 07/23/20 Range/Units 03:55 03:14 00:01 WBC (4.8-10.8) K/uL RBC (4.7-6.1) M/uL Hgb (14.0-18.0) g/dL POC Hgb 13.3 L (14.0-18.0) g/dl Hct (42-52) % POC Hct 39 L (42-52) % MCV (80-100) fL MCH (25-34) pg MCHC (32-36) g/dL RDW Std Deviation (36.4-46.3) fL RDW Coeff of Fernanda (11.5-14.5) % Plt Count (130-400) K/uL MPV (7.4-10.4) fL Immature Gran % (Auto) % Neut % (Auto) % Lymph % (Auto) % Barrow % (Auto) % Eos % (Auto) % Baso % (Auto) % Neut # (Auto) (1.4-6.5) K/uL Lymph # (Auto) (1.2-3.4) K/uL Barrow # (Auto) (0.11-0.59) K/uL Eos # (Auto) (0-0.5) K/uL Baso # (Auto) (0-0.2) K/uL Immature Gran # (Auto) (0.00-0.02) K/uL Sample Site Art Line POC pH 7.47 H (7.35-7.45) POC pCO2 45 (35-46) mmHg POC pO2 100 H (80-95) mmHg POC HCO3 33 H (19-24) nakul/L POC Total CO2 34 H (24-31) mmol/L POC Base Excess 9.0 H (-9-1.8) nakul/L ABG pH (Temp Correct) 7.454 H (7.35-7.45) ABG pCO2 (Temp Corrct 47 H (35-46) mmHg POC ABG pO2 at Pt Temp 108 POC ABG O2 Sat 98.0 H (90-95) % Tavo Test NA O2 Delivery Device Ventilator POC O2 Rate 12 Minute Ventilation 14.1 Tidal Volume 400 PEEP 16 POC Sodium 140 (135-144) mmol/L Sodium (136-145) mmol/L POC Potassium 4.0 (3.3-5.0) mmol/L Potassium (3.5-5.1) mmol/L Chloride (98-107) mmol/L Carbon Dioxide (21-32) mmol/L Anion Gap (3-11) BUN (7-18) mg/dl Creatinine (0.6-1.4) mg/dl Est Cr Clr Drug Dosing ml/min Est GFR ( Amer) Est GFR (Non-Af Amer) BUN/Creatinine Ratio (10-20) Glucose (70-99) mg/dl POC Glucose 167 H 179 H (70-99) mg/dl Calcium (8.5-10.1) mg/dl Phosphorus (2.5-4.9) mg/dl Magnesium (1.8-2.4) mg/dl Vancomycin Trough (See Comment) mcg/ml 07/22/20 Range/Units 20:33 WBC (4.8-10.8) K/uL RBC (4.7-6.1) M/uL Hgb (14.0-18.0) g/dL POC Hgb (14.0-18.0) g/dl Hct (42-52) % POC Hct (42-52) % MCV (80-100) fL MCH (25-34) pg MCHC (32-36) g/dL RDW Std Deviation (36.4-46.3) fL RDW Coeff of Fernanda (11.5-14.5) % Plt Count (130-400) K/uL MPV (7.4-10.4) fL Immature Gran % (Auto) % Neut % (Auto) % Lymph % (Auto) % [place]arrow % (Auto) % Eos % (Auto) % Baso % (Auto) % Neut # (Auto) (1.4-6.5) K/uL Lymph # (Auto) (1.2-3.4) K/uL Barrow # (Auto) (0.11-0.59) K/uL Eos # (Auto) (0-0.5) K/uL Baso # (Auto) (0-0.2) K/uL Immature Gran # (Auto) (0.00-0.02) K/uL Sample Site POC pH (7.35-7.45) POC pCO2 (35-46) mmHg POC pO2 (80-95) mmHg POC HCO3 (19-24) nakul/L POC Total CO2 (24-31) mmol/L POC Base Excess (-9-1.8) nakul/L ABG pH (Temp Correct) (7.35-7.45) ABG pCO2 (Temp Corrct (35-46) mmHg POC ABG pO2 at Pt Temp POC ABG O2 Sat (90-95) % Tavo Test O2 Delivery Device POC O2 Rate Minute Ventilation Tidal Volume PEEP POC Sodium (135-144) mmol/L Sodium (136-145) mmol/L POC Potassium (3.3-5.0) mmol/L Potassium (3.5-5.1) mmol/L Chloride (98-107) mmol/L Carbon Dioxide (21-32) mmol/L Anion Gap (3-11) BUN (7-18) mg/dl Creatinine (0.6-1.4) mg/dl Est Cr Clr Drug Dosing ml/min Est GFR ( Amer) Est GFR (Non-Af Amer) BUN/Creatinine Ratio (10-20) Glucose (70-99) mg/dl POC Glucose 224 H (70-99) mg/dl Calcium (8.5-10.1) mg/dl Phosphorus (2.5-4.9) mg/dl Magnesium (1.8-2.4) mg/dl Vancomycin Trough (See Comment) mcg/ml PG Care Time/CCT Total # of Minutes Spent Total Time Spent with Patient: Total time spent is greater than 50% in coordination of care (as documented) at patient's floor/unit and/or counseling patient: Coding Level of Care Code 05186 Subseq Hosp Care Lvl 1 Diagnoses Pneumonia due to COVID-19 virus U07.1; J12.82 Acute hypoxemic respiratory failure J96.01 Sepsis A41.9 Acute kidney injury N17.9 Anxiety F41.9 Hypokalemia E87.6 Hypertension I10 CAD (coronary artery disease), [place] coronary artery I25.10 Hyperlipidemia E78.5 Diabetes mellitus type 2 in obese E11.69; E66.9 DVT prophylaxis Z29.9
[2020-07-23] MEDS: METOPROLOL TARTRATE 25 MG TAB PO SCH (20:53)
[2020-07-24] MEDS: INSULIN ASPART 100 UNITS/ML 3 ML PEN SC SCH ×7 (00:18→23:39)
[2020-07-24] MEDS: LINEZOLID 600 MG/300 ML BAG IV SCH ×3 (00:19→23:28)
[2020-07-24] MEDS: ALBUT/IPRATROP 3MG/0.5MG NEB 3 ML VIAL NEB PRN ×4 (03:30→19:36)
[2020-07-24 04:03] LABS: iSTAT Art Bld Gas pCO2 Correct 46 mmHg (35-46); iSTAT Art Bld Gas pH Corrected 7.473 (7.35-7.45); iSTAT Arterial Blood Gas HCO3 33 meg/L (19-24); iSTAT Arterial Blood Gas pCO2 44 mmHg (35-46); iSTAT Arterial Blood Gas pH 7.49 (7.35-7.45); iSTAT Arterial Blood Gas pO2 113 mmHg (80-95); iSTAT Arterial Blood Gas pO2 C 119; iSTAT Carbon Dioxide 34 mmol/L (24-31); iSTAT Hematocrit 39 % (42-52); iSTAT Hemoglobin 13.3 g/dl (14.0-18.0); iSTAT Potassium 3.7 mmol/L (3.3-5.0); iSTAT Site Art Line; iSTAT Sodium 142 mmol/L (135-144)
[2020-07-24 04:46] LABS: Hematocrit (blood only) 39.4 % (42-52); Hemoglobin 13.1 g/dL (14.0-18.0); Mean Corpuscular Hemoglobin 31.3 pg (25-34); Mean Corpuscular Hgb Conc 33.2 g/dL (32-36); Mean Corpuscular Volume 94.3 fL (80-100); Mean Platelet Volume 10.5 fL (7.4-10.4); Platelet Count 158 K/uL (130-400); RDW Coefficient of Variation 14.2 % (11.5-14.5); RDW Standard Deviation 48.8 fL (36.4-46.3); Red Blood Count 4.18 M/uL (4.7-6.1); White Blood Count 19.43 K/uL (4.8-10.8)
[2020-07-24] MEDS: DEXMEDETOMIDINE HCL 400 MCG in 0.9 % SODIUM CHLORIDE 96 ML IV SCH (04:50)
[2020-07-24 05:04] LABS: Eosinophils # (auto) 0.01 K/uL (0-0.5); Eosinophils % (auto) 0.1 %; Immature Granulocytes # (auto) 0.12 K/uL (0.00-0.02); Immature Granulocytes % (auto) 0.6 %; Lymphocytes # (auto) 1.69 K/uL (1.2-3.4); Lymphocytes % (auto) 8.7 %; Monocytes # (auto) 0.93 K/uL (0.11-0.59); Monocytes % (auto) 4.8 %; Neutrophils # (auto) 16.68 K/uL (1.4-6.5); Neutrophils % (auto) 85.8 %; RBC Morphology Unremarkable
[2020-07-24 05:05] LABS: BUN Creatinine Ratio 53.2 (10-20); Calcium 8.6 mg/dl (8.5-10.1); Creatinine Clr Calc Pharmacy 128.1 ml/min; Est GFR (African American) 110.6; Est GFR (Non-African American) 95.4; Magnesium 2.4 mg/dl (1.8-2.4); Phosphorus 2.4 mg/dl (2.5-4.9); Potassium 3.6 mmol/L (3.5-5.1)
[2020-07-24] MEDS ORDERED: POTASSIUM PHOS 3 MMOL/1 ML INFUSION IV STA (05:16)
[2020-07-24] MEDS ORDERED: POTASSIUM PHOSPHATE 24 MMOL in SODIUM CHLORIDE 0.9% 500 ML IV ONE (05:30)
--- NOTE | 2020-07-24 08:08 | XRay Report ---
XR chest 1V portable HISTORY: 65 years-old Male f/u acute respiratory failure. COMPARISON: Chest radiograph 07/23/2020 TECHNIQUE: Portable upright AP view of the chest FINDINGS: Endotracheal tube overlies the midline, 2.3 cm superior to the laverne. There is an enteric tube prese nt which courses below the diaphragm outside the [id number]. Unchanged positioning of the left sub clavian central venous catheter. Calcified plaque the thoracic aorta. Cardiac silhouette is enlarged. Unchanged interstitial coarsenin g with patchy bilateral airspace opacities. There is no pneumothorax or large pleural effusion. Spond ylitic spurring of the spine. IMPRESSION: 1. Lines and tubes as above. 2. Unchanged bilateral pulmonary opacities. 3. No pneumothorax. ACT 112: Negative or not required by law. The above report was generated using voice recognition software. It may contain grammatical, syntax o r spelling errors. Electronically signed by: Gary Treadwell M.D. 07/24/2020 8:06 AM
[2020-07-24] MEDS: ENOXAPARIN INJ 40 MG/0.4 ML SYR SQ SCH ×2 (08:20→21:23)
[2020-07-24] MEDS: METOPROLOL TARTRATE 25 MG TAB PO SCH ×2 (08:21→21:22)
[2020-07-24] MEDS: ASPIRIN 81 MG CHEW PO SCH (08:21)
[2020-07-24] MEDS: ATORVASTATIN 40 MG TAB PO SCH (08:22)
[2020-07-24] MEDS: POLYETHYLENE (MIRALAX) 17 GM PACK PO SCH (08:22)
[2020-07-24] MEDS: TELMISARTAN 40 MG TAB PO SCH (08:22)
[2020-07-24] MEDS: dexAMETHasone 10 MG in SYRINGE 0 ML IV SCH (08:23)
[2020-07-24] MEDS: FUROSEMIDE 40 MG in SYRINGE 0 ML IV SCH (08:23)
[2020-07-24] MEDS: PEPTAMEN INTENSE VHP 1.0 CAL 1,000 ML BAG OG SCH (08:23)
--- NOTE | 2020-07-24 08:46 | Magnetic Resonance Report ---
Brain MRI WITHOUT CONTRAST HISTORY: Altered mental status. Covid positive. TECHNIQUE: Multiplanar multisequence MRI of the brain was performed without the use of contrast. COMPARISON STUDY: Head CT 07/21/2020. FINDINGS: There is no mass, hematoma, midline shift, or acute infarct. Trace fluid within a few the b ilateral mastoid air cells. Mild mucosal thickening within the ethmoid air cells. . The ventricles an d sulci demonstrate mild age-related involutional changes. Scattered foci of T2 hyperintensity seen w ithin the periventricular and subcortical white matter are nonspecific but suggestive of mild microva scular ischemic changes. The major vascular flow voids at the skull base are well-maintained. IMPRESSION: No acute intracranial abnormality. ACT 112: Negative or not required by law. Electronically signed by: Gwyn Shaw M.D. 07/24/2020 8:44 AM
[2020-07-24] MEDS ORDERED: LOSARTAN POTASSIUM 25 MG TAB PO SCH (09:00)
[2020-07-24] MEDS ORDERED: INSULIN HUMAN NPH SC ONE (09:00)
[2020-07-24] MEDS ORDERED: METOPROLOL TARTRATE 25 MG TAB PO ONE (09:30)
[2020-07-24] MEDS: PANTOprazole 40 MG in SYRINGE 0 ML IV SCH (10:20)
[2020-07-24] MEDS: ACETAMINOPHEN SUSP 325 MG/10.15 ML UDC OG PRN (11:07)
--- NOTE | 2020-07-24 11:28 | Critical Care Progress Note ---
Date of Service July 24, 2020 Assessment & Plan (1) Acute hypoxemic respiratory failure: (2) Pneumonia due to COVID-19 virus: Patient was discussed in the multidisciplinary rounds. Impression: 65-year-old male with morbid obesity and ARDS secondary to COVID-19 pneumonia. He is failed conservative measures with oxygen and BiPAP and intubation mechanical ventilation were instituted Neurologic: -Encephalopathy Improved Off Precedex MRI brain negative we can wean this further. He is intermittently following commands. 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 keep Plateau < 30 with permissive hypercapnea if need be. Monitor ABGs Daily SBT's Context ARDS protocol. Currently on 10 mg dexamethasone. Day #13 mechanical ventilation. Status post bronchoscopy on 07/20/2020. Sputum cultures growing MRSA. On linezolid Cardiovascular: -Nonsustained V. tach Patient on beta-gloria Keep potassium greater than 4, magnesium greater than 2, phosphorus greater than 3 -History of coronary artery disease with CARSON, continue ASA. -Hypertension with dyslipidemia Continue with statin Continue with beta-gloria and RHONDA inhibitor to control the blood pressure -Prolonged QTC Avoid QT prolonging medication QTC 462 07/24/2020 Renal: Monitor BUNs/creatinine continue electrolyte replacement per ICU protocol. Replace electrolytes as needed. GI: Continue tube feeds. Continue MiraLAX. ID: Completed 7 days worth of treatment for a urinary tract infection with Rocephin. Switched from vancomycin to linezolid on 07/23/2020 due to difficulty of dosing related to his obesity. Being treated for MRSA pneumonia Endocrine: ICU glycemic control per protocol. Heme-onc: No current issues. --Prophylaxis VTE: Lovenox 40 mg every 12 GI: Pantoprazole Lines: Left subclavian 07/11/2020, positive ETT, positive Alicia Diet: Tube feeds Plan: In/out positive for 63, urine output 3900 Patient is positive only 1.2 L since admission. Continue with diuresis. Patient had run of nonsustained V. tach overnight. Trace to 25 mg twice daily. Continue with linezolid for total of 10 days for MRSA pneumonia We will try to take TLC out after getting peripheral access. Phosphorus and potassium being replaced. Patient does have leukocytosis this could be from dexamethasone. Patient blood culture has been negative to date. I went down on PEEP to 10. We will gradually try to go down on PEEP and try pressure support later on today. Given the improvement in mental status we will see if patient will be able to be extubated. If you feel SBT the patient will need tracheostomy. Javier Lawrence [phone] I have personally spent 45 minutes of critical care time in the direct management of this patient. This is a life/limb threatening event. This includes time spent evaluating patient, direct bedside care, chart review, placing orders, interpretation of diagnostic studies, discussion with consultants, patient, and family members, as well as other required patient management activities. This time is exclusive of all separately billable procedures, and teaching time and separate from and in addition to any other critical care service time. Please note the above document was generated using voice recognition software. It may contain grammatical, syntax or spelling errors. (3) Hypervolemia: (4) Morbid obesity due to excess calories: (5) Acute encephalopathy: (6) MRSA pneumonia: Admission and Anticipated Discharge Date Admission Date: July 08, 2020 Subjective Patient seen and examined at bedside. No acute distress, no adverse events overnight. Patient was on SIMV, PEEP of 14 with FiO2 45% and then awoke examination. Patient is not on any sedation. He was answering simple questions and following simple commands. Denied any chest pain, no headache. T-max 38.2 Review of Systems Review of Systems: All systems reviewed & are unremarkable except as noted in Subjective and Unobtainable due to endotracheal tube Physical Exam Physical Exam: Constitutional: No acute distress HEENT: EOMI, PERRLA, positive ETT Respiratory system: Decreased air entry bilaterally, no wheeze, no rhonchi, positive crackles bilateral lower lobes CVS: S1-S2 positive, no murmurs or gallops Abdomen: Soft, nontender, nondistended, positive bowel sounds x4, obese Extremities: +2 pulses bilaterally radialis/ dorsalis pedis, no cyanosis, +1 pitting edema Neuro: Awake and alert, following simple commands Psych: Normal mood and affect G/U: Positive Alicia, positive rectal tube Skin: no rashes, warm and dry Lymphatic: no cervical or axillary lymphadenopathy Results & Data Results & Data ([facility]) Vital Signs (Past 12 Hours) Vital Signs Temp Pulse Resp BP Pulse Ox 07/24/20 07:32 114 H 23 93 07/24/20 05:59 38.2 C H 112 H 134/85 93 07/24/20 05:56 38.2 C H 117 H 136/83 93 07/24/20 05:54 38.2 C H 113 H 129/85 93 07/24/20 05:51 38.2 C H 112 H 136/75 93 07/24/20 05:49 38.2 C H 121 H 122/81 93 07/24/20 05:46 38.1 C H 118 H 149/95 H 92 07/24/20 05:44 38.1 C H 109 H 161/83 H 89 L 07/24/20 05:41 38.1 C H 114 H 130/84 93 07/24/20 05:39 38.1 C H 112 H 139/85 91 07/24/20 05:36 38.1 C H 123 H 128/85 93 07/24/20 05:33 38.1 C H 116 H 153/97 H 92 07/24/20 05:31 38.1 C H 110 H 139/81 92 07/24/20 05:29 38.1 C H 113 H 109/73 89 L 07/24/20 05:26 38.1 C H 110 H 137/80 93 07/24/20 05:24 38.1 C H 119 H 120/80 90 07/24/20 05:21 38.1 C H 113 H 148/72 H 93 07/24/20 05:18 38.1 C H 113 H 135/86 92 07/24/20 05:16 38.1 C H 115 H 127/75 93 07/24/20 05:14 38.1 C H 112 H 136/79 89 L 07/24/20 05:11 38.1 C H 112 H 155/83 H 93 07/24/20 05:09 38.1 C H 109 H 157/76 H 92 07/24/20 05:06 38.1 C H 120 H 144/94 H 93 07/24/20 05:04 38.1 C H 112 H 152/82 H 88 L 07/24/20 05:01 38.1 C H 120 H 144/81 H 93 07/24/20 05:00 38.1 C H 109 H 93 07/24/20 04:58 38.1 C H 109 H 136/79 92 07/24/20 04:53 38.1 C H 110 H 122/73 92 07/24/20 04:51 38.1 C H 109 H 131/69 90 07/24/20 04:48 38.0 C H 114 H 137/75 93 07/24/20 04:46 38.0 C H 113 H 120/72 90 07/24/20 04:43 38.1 C H 108 H 119/69 92 07/24/20 04:41 38.1 C H 119 H 124/70 90 07/24/20 04:38 38.1 C H 111 H 125/72 92 07/24/20 04:36 38.1 C H 111 H 111/74 91 07/24/20 04:33 38.1 C H 117 H 121/71 92 07/24/20 04:31 38.0 C H 118 H 144/73 H 90 07/24/20 04:28 38.0 C H 115 H 135/75 92 07/24/20 04:26 38.0 C H 112 H 122/81 90 07/24/20 04:00 38.0 C H 116 H 141/72 H 92 07/24/20 03:51 108 H 21 92 07/24/20 03:00 38.0 C H 115 H 93 07/24/20 02:00 38.0 C H 116 H 94 07/24/20 01:00 38.0 C H 113 H 99 07/24/20 00:15 103 H 24 94 07/24/20 00:00 38.1 C H 118 H 163/74 H 07/24/20 04:27 07/24/20 04:27 Coding Level of Care Code Critical Care 1st 30-74 mins Diagnoses Acute hypoxemic respiratory failure J96.01 Pneumonia due to COVID-19 virus U07.1; J12.82 Hypervolemia E87.70 Morbid obesity due to excess calories E66.01 Acute encephalopathy G93.40 MRSA pneumonia J15.212 Time Spent (min) 45
--- NOTE | 2020-07-24 12:50 | Pharmacy Report ---
Pharmacy Glycemic Short Note 2 - Date of Service July 24, 2020 - Glycemic Short BSG Results (Last 24 hours): 07/23/20 07/23/20 07/24/20 15:49 20:59 00:11 Glucose POC Glucose 212 H 140 H 132 H 07/24/20 07/24/20 07/24/20 04:27 08:17 11:07 Glucose 132 H POC Glucose 133 H 153 H OUTPATIENT ANTIDIABETIC REGIMEN: * n/a * A1c = 7.5% 07/20/20 ASSESSMENT: 07/24: * Patient received 69 units of insulin yesterday 30 of which were basal. * Dexamethasone continues for 2 more days * BSGs much improved today. Will continue with Morning NPH only and monitor whether a second evening dose becomes necessary * TFs continue at goal. Will continue current q4 novolog scale. 07/23 * Over the last 24 hrs 90 units SQ insulin administered * Mid-day BSG elevation again seen, this seems to be the recurring pattern and likely associated with AM admin of IV dexamethasone. He is on Day 2 of 5 of dexamethasone 10mg IV daily. Will convert basal insulin to NPH BID and utilize a larger dose in AM to address mid-day BSG rise * He remains on vent, sedation has been titrated down, he remains febrile, abx being changed due to concern for slow response to vancomycin, new abx Linezolid will provide greater IV dextrose load, TF continue at goal * Will increase correctional insulin dose slightly, however primary change to today's regimen will be larger AM basal insulin dose 07/22 * Patient's BSGs yesterday were [phone] mg/dL with fasting today of 179 mg/dL. Patient has had > 2 BSGs greater than 180 mg/dL so will start basal insulin. * Conservative start with 0.2 units/kg or half of weight-based stress of 2 dosing. Scale for this evening based upon weight-based dosing. * Patient to start dexamethasone 10 mg IV daily today. Tighten Novolog to weight-based stress of 3 dosing in attempt to accommodate changing stressors. 07/20 * Type 2 diabetic, intubated, sedated in ICU with resp failure from COVID19 viral pneumonia * DEXA-ARDS regimen continues, day 4/5 dexamethasone 20mg IV daily * Tube feeds continue at goal: Peptamen VHP @70cc/hr * BSGs well controlled despite these stressors with the use of correctional Novolog. Will add carb coverage at this time however to maintain BSGs less than 180. PLAN FOR INPATIENT GLYCEMIC CONTROL: * Basal insulin * NPH 30 units this AM * Bolus insulin * NovoLog per scale Q 4 hrs * Goal Range: Low 110 mg/dL - High 140 mg/dL * Correction Factor: 12 mg/dL/unit * Nutritional / Prandial insulin per carb ratio of 1 unit per 4 grams CHO consumed
--- NOTE | 2020-07-24 16:53 | Electrocardiogram Report ---
Test Reason : Blood Pressure : / mmHG Vent. Rate : 099 BPM Atrial Rate : 099 BPM P-R Int : 134 ms QRS Dur : 080 ms QT Int : 360 ms P-R-T Axes : -64 -12 009 degrees QTc Int : 462 ms Unusual P axis and short PA, probable junctional tachycardia Minimal voltage criteria for LVH, may be normal variant Abnormal ECG When compared with ECG of 08-JUL-2020 17:35, Junctional rhythm has replaced Sinus rhythm Confirmed by Jorge Cox ([id number] on 07/24/2020 4:52:40 PM Referred By: REFERRED SELF Confirmed By:Joe Cox
--- NOTE | 2020-07-24 19:14 | Hospitalist Progress Note ---
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 he got worse despite Vapotherm and BIPAP Chest x-ray and overall picture consistent with ARDS Transferred to ICU and was intubated and is mechanically ventilated as of the a.m. of 07/11 Remains intubated, day 13 of mechanical ventilation now weaned off Precedex, off Fentanyl, more awake and following some commands and answering simple questions on 07/24 MRI brain negative on 07/23-performed for persistent encephalopathy which is likely ICU delirium Now with MRSA PNA-fevers persist, on Vanco and then switched to linezolid on 07/23 Leukocytosis is worsening today family now indicates that they would want a tracheostomy, defer to ICU on timing of this procedure-now on pressure support and CPAP trial on 07/24. Will perform SBT daily and attempt to extubate possibly in 07/25. 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 Continues on high dose Decadron 10 mg daily at this time (2) Acute hypoxemic respiratory failure: As noted above severe ARDS, following ARDSnet protocol Improving today, weaned down to 50% FiO2 and on pressure support and CPAP trial later in the day family would now WANT tracheostomy after further discussion would evaluate for this next week bronchoscopy on 07/20 for air leak ETT advanced and mucopurulent secretions aspirated from both airways better ventilation afterwards ICU managing ventilator Now weaned off Precedex, following simple commands -Continue diuresis with IV Lasix daily Possible extubation tomorrow (3) Sepsis: Sepsis in setting of COVID-19 pneumonia, secondary MRSA pneumonia, with septic shock Now weaned off levophed on 07/15 fevers as above -Continue tx for MRSA PNA monitor closely -continue linezolid -Consider repeating blood and urine cultures if fevers persist (4) Acute kidney injury: Creatinine 2.38 upon admission, with 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 Now resolved giving Lasix 40mg IV daily to keep lungs dry Follow CMP Follow urine output Alicia catheter remains in place (5) Anxiety: On lorazepam 1 mg 3 times daily at home Was on Versed, then Precedex for sedation, now off completely Watch for withdrawal -Consider adding on as needed lorazepam (6) Hypokalemia: K is stable Follow BMP in the setting of daily IV Lasix (7) Hypertension: BP now becoming elevated Previously held home telmisartan/HCT for acute kidney injury, but now restarted home telmisartan -Increase metoprolol to 25 mg po bid (8) CAD (coronary artery disease), [place] coronary artery: With a history of coronary stent Troponin minimally elevated and stable x2 most likely secondary to myocardial demand ischemia from profound hypoxia -continue aspirin 81 mg daily given presence of stent -continue statin -restarted metoprolol (9) Hyperlipidemia: Continue atorvastatin 80 mg every morning (10) Diabetes mellitus type 2 in obese: HgbA1C 7.5% here With hyperglycemia in setting of COVID/Sepsis and steroid use -continue insulin (11) DVT prophylaxis: Lovenox 40 mg SQ every 12 FEN- tube feeds GI prophylaxis-IV Protonix Disposition-continued stay in ICU, prognosis remains guarded, possible tracheostomy this week versus extubation, currently treating staph aureus infection DNR Admission and Anticipated Discharge Date Admission Date: July 08, 2020 Subjective Patient remains intubated but was on a CPAP trial today and did fairly well. Apparently was following commands and answering simple questions. Is off Precedex drip. Had a brain MRI last night which was negative. Remains with fevers. Had central line removed today after peripheral IVs were placed. Review of Systems Review of Systems: Unobtainable due to cognitive status Physical Exam Constitutional: WD/WN, vitals as above + obese and + mechanically ventilated; no acute distress Results & Data Results & Data ([facility]) Vital Signs (Past 12 Hours) Vital Signs Temp Pulse Resp BP Pulse Ox 07/24/20 18:00 38.0 C H 116 H 89 L 07/24/20 17:00 38.0 C H 105 H 88 L 07/24/20 16:00 38.0 C H 108 H 90 07/24/20 15:55 38.0 C H 109 H 154/80 H 87 L 07/24/20 15:39 112 H 20 93 07/24/20 15:00 38.1 C H 110 H 89 L 07/24/20 14:00 38.1 C H 104 H 89 L 07/24/20 13:10 38.1 C H 102 H 89 L 07/24/20 13:09 38.1 C H 101 H 124/71 88 L 07/24/20 13:00 38.1 C H 104 H 89 L 07/24/20 12:09 38.1 C H 101 H 111/70 87 L 07/24/20 12:00 38.1 C H 101 H 87 L 07/24/20 11:20 99 H 22 90 07/24/20 11:15 99 H 12 92 07/24/20 11:10 38.2 C H 100 H 90 07/24/20 11:09 38.2 C H 99 H 121/81 89 L 07/24/20 11:00 38.2 C H 101 H 91 07/24/20 10:09 99 H 126/77 90 07/24/20 10:00 100 H 90 07/24/20 09:09 126 H 126/86 89 L 07/24/20 09:01 115 H 96 07/24/20 08:40 38.2 C H 118 H 190/110 H 91 07/24/20 08:37 38.2 C H 123 H 168/98 H 90 07/24/20 08:35 38.3 C H 115 H 154/92 H 87 L 07/24/20 08:32 38.3 C H 110 H 142/87 H 90 07/24/20 08:30 38.3 C H 114 H 156/98 H 87 L 07/24/20 08:27 38.2 C H 121 H 148/79 H 90 07/24/20 08:25 38.3 C H 115 H 127/80 88 L 07/24/20 08:22 38.2 C H 113 H 135/84 90 07/24/20 08:20 38.3 C H 118 H 130/81 88 L 07/24/20 08:17 38.2 C H 114 H 138/82 90 07/24/20 08:15 38.2 C H 123 H 180/76 H 90 07/24/20 08:12 38.2 C H 119 H 148/85 H 89 L 07/24/20 08:10 38.2 C H 112 H 159/81 H 87 L 07/24/20 08:07 38.2 C H 111 H 161/83 H 90 07/24/20 08:03 38.2 C H 111 H 149/85 H 90 07/24/20 08:01 113 H 90 07/24/20 08:00 114 H 07/24/20 07:59 38.2 C H 111 H 151/85 H 90 07/24/20 07:57 38.2 C H 112 H 128/72 90 07/24/20 07:55 38.2 C H 114 H 129/81 89 L 07/24/20 07:52 38.2 C H 111 H 148/77 H 91 07/24/20 07:49 38.2 C H 111 H 143/84 H 91 07/24/20 07:47 38.2 C H 114 H 146/84 H 92 07/24/20 07:44 38.2 C H 116 H 126/81 91 07/24/20 07:42 38.2 C H 112 H 129/80 91 07/24/20 07:39 38.2 C H 113 H 132/84 91 07/24/20 07:37 38.2 C H 113 H 141/77 H 91 07/24/20 07:34 38.2 C H 117 H 141/82 H 91 07/24/20 07:32 38.2 C H 117 H 23 126/77 92 07/24/20 07:29 38.2 C H 119 H 160/79 H 91 07/24/20 07:27 38.2 C H 118 H 150/81 H 92 07/24/20 07:24 38.2 C H 118 H 163/77 H 92 Laboratory Results 07/24/20 04:27 07/24/20 04:27 PG Care Time/CCT Total # of Minutes Spent Total Time Spent with Patient: Total time spent is greater than 50% in coordination of care (as documented) at patient's floor/unit and/or counseling patient: Coding Level of Care Code 99397 Subseq Hosp Care Lvl 1 Diagnoses Pneumonia due to COVID-19 virus U07.1; J12.82 Acute hypoxemic respiratory failure J96.01 Sepsis A41.9 Acute kidney injury N17.9 Anxiety F41.9 Hypokalemia E87.6 Hypertension I10 CAD (coronary artery disease), [place] coronary artery I25.10 Hyperlipidemia E78.5 Diabetes mellitus type 2 in obese E11.69; E66.9 DVT prophylaxis Z29.9
[2020-07-25 03:39] LABS: iSTAT Art Bld Gas pCO2 Correct 41 mmHg (35-46); iSTAT Arterial Blood Gas HCO3 32 meg/L (19-24); iSTAT Arterial Blood Gas pCO2 40 mmHg (35-46); iSTAT Arterial Blood Gas pH 7.52 (7.35-7.45); iSTAT Arterial Blood Gas pO2 64 mmHg (80-95); iSTAT Arterial Blood Gas pO2 C 68; iSTAT Carbon Dioxide 33 mmol/L (24-31); iSTAT FiO2 55 %; iSTAT Hematocrit 37 % (42-52); iSTAT Hemoglobin 12.6 g/dl (14.0-18.0); iSTAT Potassium 3.8 mmol/L (3.3-5.0); iSTAT Site Art Line; iSTAT Sodium 143 mmol/L (135-144)
[2020-07-25] MEDS: INSULIN ASPART 100 UNITS/ML 3 ML PEN SC SCH ×5 (03:59→21:29)
[2020-07-25 05:07] LABS: Hematocrit (blood only) 39.7 % (42-52); Hemoglobin 12.9 g/dL (14.0-18.0); Mean Corpuscular Hemoglobin 30.9 pg (25-34); Mean Corpuscular Hgb Conc 32.5 g/dL (32-36); Mean Corpuscular Volume 95.2 fL (80-100); Mean Platelet Volume 10.5 fL (7.4-10.4); Platelet Count 160 K/uL (130-400); RDW Coefficient of Variation 14.5 % (11.5-14.5); RDW Standard Deviation 50.2 fL (36.4-46.3); Red Blood Count 4.17 M/uL (4.7-6.1)
[2020-07-25 05:25] LABS: BUN Creatinine Ratio 49.3 (10-20); Calcium 8.7 mg/dl (8.5-10.1); Creatinine Clr Calc Pharmacy 118.9 ml/min; Est GFR (African American) 107.7; Est GFR (Non-African American) 92.9; Magnesium 2.5 mg/dl (1.8-2.4); Potassium 3.9 mmol/L (3.5-5.1)
[2020-07-25 05:26] LABS: Phosphorus 2.5 mg/dl (2.5-4.9)
[2020-07-25 05:28] LABS: Basophils # (auto) 0.01 K/uL (0-0.2); Basophils % (auto) 0.1 %; Eosinophils # (auto) 0.05 K/uL (0-0.5); Eosinophils % (auto) 0.3 %; Immature Granulocytes # (auto) 0.09 K/uL (0.00-0.02); Immature Granulocytes % (auto) 0.5 %; Lymphocytes # (auto) 2.18 K/uL (1.2-3.4); Lymphocytes % (auto) 12.4 %; Monocytes # (auto) 0.45 K/uL (0.11-0.59); Monocytes % (auto) 2.6 %; Neutrophils # (auto) 14.82 K/uL (1.4-6.5); Neutrophils % (auto) 84.1 %
[2020-07-25] MEDS: ALBUT/IPRATROP 3MG/0.5MG NEB 3 ML VIAL NEB PRN ×2 (07:10→21:05)
[2020-07-25] MEDS ORDERED: POTASSIUM PHOS 3 MMOL/1 ML INFUSION IV STA (07:20)
[2020-07-25] MEDS: METOPROLOL TARTRATE 25 MG TAB PO SCH ×2 (07:52→20:21)
[2020-07-25] MEDS: TELMISARTAN 40 MG TAB PO SCH (07:53)
[2020-07-25] MEDS: ATORVASTATIN 40 MG TAB PO SCH (07:53)
[2020-07-25] MEDS: ENOXAPARIN INJ 40 MG/0.4 ML SYR SQ SCH ×2 (07:54→20:21)
[2020-07-25] MEDS: POLYETHYLENE (MIRALAX) 17 GM PACK PO SCH (07:59)
[2020-07-25] MEDS: dexAMETHasone 10 MG in SYRINGE 0 ML IV SCH (07:59)
[2020-07-25] MEDS: ASPIRIN 81 MG CHEW PO SCH (07:59)
[2020-07-25] MEDS: FUROSEMIDE 40 MG in SYRINGE 0 ML IV SCH (07:59)
[2020-07-25] MEDS ORDERED: POTASSIUM PHOSPHATE 15 MMOL in SODIUM CHLORIDE 0.9% 250 ML IV ONE (08:00)
--- NOTE | 2020-07-25 08:08 | XRay Report ---
XR chest 1V portable CLINICAL HISTORY: Respiratory failure COMPARISON STUDY: July 24, 2020 FINDINGS: Endotracheal tube is 37 mm above the laverne. There is a nasogastric tube which passes into the stomach. The heart is the upper limits of normal in size. The left subclavian central venous cath eter has been removed. Atheromatous calcifications are present within the aortic arch. There are pers istent bilateral pulmonary airspace opacities.[ IMPRESSION: 1. Interval removal of the left subclavian central venous catheter 2. Otherwise stable findings with persistent bilateral pulmonary airspace opacities ACT 112: Negative or not required by law. Electronically signed by: Jimmie Manuel M.D. 07/25/2020 8:06 AM
[2020-07-25] MEDS ORDERED: ACETAMINOPHEN 1000 MG/100 ML IV IV STA (08:53)
[2020-07-25] MEDS ORDERED: ACETAMINOPHEN 1000 MG/100 ML IV IV ONE (08:54)
[2020-07-25] MEDS ORDERED: INSULIN HUMAN NPH SC ONE (09:00)
[2020-07-25] MEDS: PEPTAMEN INTENSE VHP 1.0 CAL 1,000 ML BAG OG SCH (10:04)
[2020-07-25] MEDS: PANTOprazole 40 MG in SYRINGE 0 ML IV SCH (11:04)
[2020-07-25] MEDS: LINEZOLID 600 MG/300 ML BAG IV SCH ×2 (11:04→23:46)
--- NOTE | 2020-07-25 11:37 | Pharmacy Report ---
Pharmacy Glycemic Short Note 2 - Date of Service July 25, 2020 - Glycemic Short BSG Results (Last 24 hours): 07/24/20 07/24/20 07/24/20 15:38 21:15 23:34 Glucose POC Glucose 208 H 147 H 146 H 07/25/20 07/25/20 07/25/20 03:25 04:45 08:09 Glucose 124 H POC Glucose 146 H 134 H 07/25/20 11:09 Glucose POC Glucose 148 H OUTPATIENT ANTIDIABETIC REGIMEN: * n/a * A1c = 7.5% 07/20/20 ASSESSMENT: 07/25: * Patient well controlled with the exception of 1600 BSG yesterday at 208 mg/dL. * Tube feeds were stopped this morning as patient extubated and plan for speech to evaluate tomorrow. NPH was ordered prior to TFs stopping. Will monitor BSG throughout the day to ensure no significant downtrend with NPO status. Lunchtime BSG remains stable. * Dexamethasone continues for one more day. Will hold off on scheduling any basal insulin for tomorrow until diet plan is more clear. 07/24: * Patient received 69 units of insulin yesterday 30 of which were basal. * Dexamethasone continues for 2 more days * BSGs much improved today. Will continue with Morning NPH only and monitor whether a second evening dose becomes necessary * TFs continue at goal. Will continue current q4 novolog scale. 07/23 * Over the last 24 hrs 90 units SQ insulin administered * Mid-day BSG elevation again seen, this seems to be the recurring pattern and likely associated with AM admin of IV dexamethasone. He is on Day 2 of 5 of dexamethasone 10mg IV daily. Will convert basal insulin to NPH BID and utilize a larger dose in AM to address mid-day BSG rise * He remains on vent, sedation has been titrated down, he remains febrile, abx being changed due to concern for slow response to vancomycin, new abx Linezolid will provide greater IV dextrose load, TF continue at goal * Will increase correctional insulin dose slightly, however primary change to today's regimen will be larger AM basal insulin dose 07/22 * Patient's BSGs yesterday were [phone] mg/dL with fasting today of 179 mg/dL. Patient has had > 2 BSGs greater than 180 mg/dL so will start basal insulin. * Conservative start with 0.2 units/kg or half of weight-based stress of 2 dosing. Scale for this evening based upon weight-based dosing. * Patient to start dexamethasone 10 mg IV daily today. Tighten Novolog to weight-based stress of 3 dosing in attempt to accommodate changing stressors. 07/20 * Type 2 diabetic, intubated, sedated in ICU with resp failure from COVID19 viral pneumonia * DEXA-ARDS regimen continues, day 4/5 dexamethasone 20mg IV daily * Tube feeds continue at goal: Peptamen VHP @70cc/hr * BSGs well controlled despite these stressors with the use of correctional Novolog. Will add carb coverage at this time however to maintain BSGs less than 180. PLAN FOR INPATIENT GLYCEMIC CONTROL: * Basal insulin * NPH 30 units this AM * Bolus insulin * NovoLog per scale Q 4 hrs * Goal Range: Low 110 mg/dL - High 140 mg/dL * Correction Factor: 12 mg/dL/unit * Nutritional / Prandial insulin per carb ratio of 1 unit per 4 grams CHO consumed
--- NOTE | 2020-07-25 13:43 | Critical Care Progress Note ---
Date of Service July 25, 2020 Assessment & Plan (1) Acute hypoxemic respiratory failure: (2) Pneumonia due to COVID-19 virus: Patient was discussed in the multidisciplinary rounds. Impression: 65-year-old male with morbid obesity and ARDS secondary to COVID-19 pneumonia. He is failed conservative measures with oxygen and BiPAP and intubation mechanical ventilation were instituted Neurologic: -Encephalopathy Improved Off Precedex MRI brain negative we can wean this further. Following commands. 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 keep Plateau < 30 with permissive hypercapnea if need be. Monitor ABGs Daily SBT's Context ARDS protocol. Currently on 10 mg dexamethasone. Day #14 mechanical ventilation. Status post bronchoscopy on 07/20/2020. Sputum cultures growing MRSA. On linezolid, will complete total 10 days of it. Cardiovascular: -Nonsustained V. tach Patient on beta-gloria Keep potassium greater than 4, magnesium greater than 2, phosphorus greater than 3 -History of coronary artery disease with CARSON, continue ASA. -Hypertension with dyslipidemia Continue with statin Continue with beta-gloria and RHONDA inhibitor to control the blood pressure -Prolonged QTC Avoid QT prolonging medication QTC 462 07/24/2020 Renal: Monitor BUNs/creatinine continue electrolyte replacement per ICU protocol. Replace electrolytes as needed. GI: Continue tube feeds. Continue MiraLAX. ID: Completed 7 days worth of treatment for a urinary tract infection with Rocephin. Switched from vancomycin to linezolid on 07/23/2020 due to difficulty of dosing related to his obesity. Being treated for MRSA pneumonia Endocrine: ICU glycemic control per protocol. Heme-onc: No current issues. --Prophylaxis VTE: Lovenox 40 mg every 12 GI: Pantoprazole Lines: Left subclavian 07/11/2020 DC'd 07/24/2020, positive ETT, positive Alicia Diet: Tube feeds Plan: In/out: +98, urine output 2780 Continue with diuresis. Continue with linezolid for total of 10 days for MRSA pneumonia We will try to take TLC out after getting peripheral access. Trial of extubation today. Will reintubate if need be. DC A-line and Alicia catheter later today. Javier Lawrence [phone] I have personally spent 38 minutes of critical care time in the direct management of this patient. This is a life/limb threatening event. This includes time spent evaluating patient, direct bedside care, chart review, placing orders, interpretation of diagnostic studies, discussion with consultants, patient, and family members, as well as other required patient management activities. This time is exclusive of all separately billable procedures, and teaching time and separate from and in addition to any other critical care service time. Please note the above document was generated using voice recognition software. It may contain grammatical, syntax or spelling errors. (3) Hypervolemia: (4) Morbid obesity due to excess calories: (5) Acute encephalopathy: (6) MRSA pneumonia: Admission and Anticipated Discharge Date Admission Date: July 08, 2020 Subjective Patient seen and examined at bedside. No acute distress, no adverse events overnight. Patient was on pressure support 7/8 at the time of examination. He was following commands. Denies any chest pain, no headache. Moving all extremities on command. Review of Systems Review of Systems: All systems reviewed & are unremarkable except as noted in Subjective Physical Exam Physical Exam: Constitutional: No acute distress HEENT: EOMI, PERRLA, positive ETT Respiratory system: Decreased air entry bilaterally, no wheeze, no rhonchi, positive crackles bilateral lower lobes CVS: S1-S2 positive, no murmurs or gallops Abdomen: Soft, nontender, nondistended, positive bowel sounds x4, obese Extremities: +2 pulses bilaterally radialis/ dorsalis pedis, no cyanosis, +1 pitting edema Neuro: Awake and alert, following simple commands Psych: Normal mood and affect G/U: Positive Alicia, positive rectal tube Skin: no rashes, warm and dry Lymphatic: no cervical or axillary lymphadenopathy Results & Data Results & Data ([facility]) Vital Signs (Past 12 Hours) Vital Signs Temp Pulse Pulse Resp BP Pulse Ox 07/25/20 13:00 107 H 27 H 91 07/25/20 12:00 37.6 C H 96 H 25 H 07/25/20 11:32 91 H 25 H 07/25/20 11:00 37.7 C H 90 20 92 07/25/20 10:00 86 23 92 07/25/20 09:20 87 23 07/25/20 09:00 38.1 C H 86 91 07/25/20 08:00 38.1 C H 107 H 89 L 07/25/20 07:20 116 H 116 H 22 90 07/25/20 07:00 38.2 C H 102 H 90 07/25/20 06:00 38.1 C H 106 H 89 L 07/25/20 05:00 38.0 C H 106 H 90 07/25/20 04:00 38.0 C H 108 H 126/74 90 07/25/20 03:25 105 H 22 90 07/25/20 03:00 38.0 C H 109 H 89 L 07/25/20 02:00 38.0 C H 101 H 91 07/25/20 04:45 07/25/20 04:45 Coding Level of Care Code Critical Care 1st 30-74 mins Diagnoses Acute hypoxemic respiratory failure J96.01 Pneumonia due to COVID-19 virus U07.1; J12.82 Hypervolemia E87.70 Morbid obesity due to excess calories E66.01 Acute encephalopathy G93.40 MRSA pneumonia J15.212 Time Spent (min) 38
--- NOTE | 2020-07-25 14:25 | Hospitalist Progress Note ---
Date of Service July 25, 2020 Assessment & Plan (1) Pneumonia due to COVID-19 virus: Pneumonia due to COVID-19 He had a positive test 7 days [facility] at [facility] with no previous treatment. he got worse despite Vapotherm and BIPAP Chest x-ray and overall picture consistent with ARDS Transferred to ICU and was intubated and is mechanically ventilated as of the a.m. of 07/11 Intubated x 14 days, EXTUBATED on 07/25 and on HFNC now weaned off Precedex, off Fentanyl MRI brain negative on 07/23-performed for persistent encephalopathy which is likely ICU delirium Continues to have fevers on 07/25 but lower grade - MRSA PNA, was on Vanco and then switched to linezolid on 07/23-continue 10 day course Leukocytosis is now improving -Appreciate planning associate management Continues on high dose Decadron 10 mg daily at this time (2) Acute hypoxemic respiratory failure: As noted above severe ARDS, following ARDSnet protocol Now extubated as above after 14 days (3) Sepsis: Sepsis in setting of COVID-19 pneumonia, secondary MRSA pneumonia, with septic shock Now weaned off levophed on 07/15 fevers as above -Continue tx for MRSA PNA w/ linezolid monitor closely -Consider repeating blood and urine cultures if fevers persist -removing Alicia 07/25, central line removed 07/24 (4) Acute kidney injury: Creatinine 2.38 upon admission, with recent 1.36 BUSINESS MGR Now resolved giving Lasix 40mg IV daily to keep lungs dry Follow CMP Follow urine output Alicia catheter removed 07/25 (5) Anxiety: On lorazepam 1 mg 3 times daily at home Was on Versed, then Precedex for sedation, now off completely Watch for withdrawal -Consider adding on as needed lorazepam (6) Hypokalemia: K is stable Follow BMP in the setting of daily IV Lasix (7) Hypertension: BP now controlled-was high while weaning from vent Previously held home telmisartan/HCT for acute kidney injury, but have since restarted home telmisartan -continue metoprolol 25 mg po bid (8) CAD (coronary artery disease), [place] coronary artery: With a history of coronary stent Troponin minimally elevated and stable x2 most likely secondary to myocardial demand ischemia from profound hypoxia -continue aspirin 81 mg daily given presence of stent -continue statin -continue metoprolol tartrate for now but on Toprol 50 at home (9) Hyperlipidemia: Continue atorvastatin 80 mg every morning (10) Diabetes mellitus type 2 in obese: HgbA1C 7.5% here With hyperglycemia in setting of COVID/Sepsis and steroid use -continue insulin (11) DVT prophylaxis: Lovenox 40 mg SQ every 12 FEN- tube feeds stopped after extubation, NPO until Speech eval tomorrow GI prophylaxis-IV Protonix Disposition-continued stay in ICU DNR Admission and Anticipated Discharge Date Admission Date: July 08, 2020 Subjective Pt extubated this AM and is now on HFNC. Alicia and feeding tube were removed. I did not see him in person due to COVID-19 status and on airborne precautions while in ICU. Review of Systems Review of Systems: Other (not seen) Physical Exam Constitutional: WD/WN, vitals as above + obese; no acute distress Results & Data Results & Data ([place]) Vital Signs (Past 12 Hours) Vital Signs Temp Pulse Pulse Resp BP Pulse Ox 07/25/20 13:00 107 H 27 H 91 07/25/20 12:00 37.6 C H 96 H 25 H 92 07/25/20 11:32 91 H 25 H 92 07/25/20 11:00 37.7 C H 90 20 92 07/25/20 10:00 86 23 92 07/25/20 09:20 87 23 92 07/25/20 09:00 38.1 C H 86 91 07/25/20 08:00 38.1 C H 107 H 89 L 07/25/20 07:20 116 H 116 H 22 90 07/25/20 07:00 38.2 C H 102 H 90 07/25/20 06:00 38.1 C H 106 H 89 L 07/25/20 05:00 38.0 C H 106 H 90 07/25/20 04:00 38.0 C H 108 H 126/74 90 07/25/20 03:25 105 H 22 90 07/25/20 03:00 38.0 C H 109 H 89 L Laboratory Results 07/25/20 07/25/20 07/25/20 Range/Units 11:09 08:09 04:45 WBC (4.8-10.8) K/uL RBC (4.7-6.1) M/uL Hgb (14.0-18.0) g/dL POC Hgb (14.0-18.0) g/dl Hct (42-52) % POC Hct (42-52) % MCV (80-100) fL MCH (25-34) pg MCHC (32-36) g/dL RDW Std Deviation (36.4-46.3) fL RDW Coeff of Fernanda (11.5-14.5) % Plt Count (130-400) K/uL MPV (7.4-10.4) fL Immature Gran % (Auto) % Neut % (Auto) % Lymph % (Auto) % Becker % (Auto) % Eos % (Auto) % Baso % (Auto) % Neut # (Auto) (1.4-6.5) K/uL Lymph # (Auto) (1.2-3.4) K/uL Becker # (Auto) (0.11-0.59) K/uL Eos # (Auto) (0-0.5) K/uL Baso # (Auto) (0-0.2) K/uL Immature Gran # (Auto) (0.00-0.02) K/uL Sample Site POC pH (7.35-7.45) POC pCO2 (35-46) mmHg POC pO2 (80-95) mmHg POC HCO3 (19-24) nakul/L POC Total CO2 (24-31) mmol/L POC Base Excess (-9-1.8) nakul/L ABG pH (Temp Correct) (7.35-7.45) ABG pCO2 (Temp Corrct (35-46) mmHg POC ABG pO2 at Pt Temp POC ABG O2 Sat (90-95) % Tavo Test O2 Delivery Device POC O2 Rate POC FiO2 % Tidal Volume PEEP POC Sodium (135-144) mmol/L Sodium 144 (136-145) mmol/L POC Potassium (3.3-5.0) mmol/L Potassium 3.9 (3.5-5.1) mmol/L Chloride 109 H (98-107) mmol/L Carbon Dioxide 29 (21-32) mmol/L Anion Gap 6.0 (3-11) BUN 39 H (7-18) mg/dl Creatinine 0.79 (0.6-1.4) mg/dl Est Cr Clr Drug Dosing 118.9 ml/min Est GFR ( Amer) 107.7 Est GFR (Non-Af Amer) 92.9 BUN/Creatinine Ratio 49.3 H (10-20) Glucose 124 H (70-99) mg/dl POC Glucose 148 H 134 H (70-99) mg/dl Calcium 8.7 (8.5-10.1) mg/dl Phosphorus 2.5 (2.5-4.9) mg/dl Magnesium 2.5 H (1.8-2.4) mg/dl 07/25/20 07/25/20 07/25/20 Range/Units 04:45 03:25 03:25 WBC 17.60 H (4.8-10.8) K/uL RBC 4.17 L (4.7-6.1) M/uL Hgb 12.9 L (14.0-18.0) g/dL POC Hgb 12.6 L (14.0-18.0) g/dl Hct 39.7 L (42-52) % POC Hct 37 L (42-52) % MCV 95.2 (80-100) fL MCH 30.9 (25-34) pg MCHC 32.5 (32-36) g/dL RDW Std Deviation 50.2 H (36.4-46.3) fL RDW Coeff of Fernanda 14.5 (11.5-14.5) % Plt Count 160 (130-400) K/uL MPV 10.5 H (7.4-10.4) fL Immature Gran % (Auto) 0.5 % Neut % (Auto) 84.1 % Lymph % (Auto) 12.4 % Becker % (Auto) 2.6 % Eos % (Auto) 0.3 % Baso % (Auto) 0.1 % Neut # (Auto) 14.82 H (1.4-6.5) K/uL Lymph # (Auto) 2.18 (1.2-3.4) K/uL Becker # (Auto) 0.45 (0.11-0.59) K/uL Eos # (Auto) 0.05 (0-0.5) K/uL Baso # (Auto) 0.01 (0-0.2) K/uL Immature Gran # (Auto) 0.09 H (0.00-0.02) K/uL Sample Site Art Line POC pH 7.52 H* (7.35-7.45) POC pCO2 40 (35-46) mmHg POC pO2 64 L (80-95) mmHg POC HCO3 32 H (19-24) nakul/L POC Total CO2 33 H (24-31) mmol/L POC Base Excess 9.0 H (-9-1.8) nakul/L ABG pH (Temp Correct) 7.500 H (7.35-7.45) ABG pCO2 (Temp Corrct 41 (35-46) mmHg POC ABG pO2 at Pt Temp 68 POC ABG O2 Sat 94.0 (90-95) % Tavo Test NA O2 Delivery Device Ventilator POC O2 Rate 12 POC FiO2 55 % Tidal Volume 400 PEEP 8 POC Sodium 143 (135-144) mmol/L Sodium (136-145) mmol/L POC Potassium 3.8 (3.3-5.0) mmol/L Potassium (3.5-5.1) mmol/L Chloride (98-107) mmol/L Carbon Dioxide (21-32) mmol/L Anion Gap (3-11) BUN (7-18) mg/dl Creatinine (0.6-1.4) mg/dl Est Cr Clr Drug Dosing ml/min Est GFR ( Amer) Est GFR (Non-Af Amer) BUN/Creatinine Ratio (10-20) Glucose (70-99) mg/dl POC Glucose 146 H (70-99) mg/dl Calcium (8.5-10.1) mg/dl Phosphorus (2.5-4.9) mg/dl Magnesium (1.8-2.4) mg/dl 07/24/20 07/24/20 07/24/20 Range/Units 23:34 21:15 15:38 WBC (4.8-10.8) K/uL RBC (4.7-6.1) M/uL Hgb (14.0-18.0) g/dL POC Hgb (14.0-18.0) g/dl Hct (42-52) % POC Hct (42-52) % MCV (80-100) fL MCH (25-34) pg MCHC (32-36) g/dL RDW Std Deviation (36.4-46.3) fL RDW Coeff of Fernanda (11.5-14.5) % Plt Count (130-400) K/uL MPV (7.4-10.4) fL Immature Gran % (Auto) % Neut % (Auto) % Lymph % (Auto) % Becker % (Auto) % Eos % (Auto) % Baso % (Auto) % Neut # (Auto) (1.4-6.5) K/uL Lymph # (Auto) (1.2-3.4) K/uL Becker # (Auto) (0.11-0.59) K/uL Eos # (Auto) (0-0.5) K/uL Baso # (Auto) (0-0.2) K/uL Immature Gran # (Auto) (0.00-0.02) K/uL Sample Site POC pH (7.35-7.45) POC pCO2 (35-46) mmHg POC pO2 (80-95) mmHg POC HCO3 (19-24) nakul/L POC Total CO2 (24-31) mmol/L POC Base Excess (-9-1.8) nakul/L ABG pH (Temp Correct) (7.35-7.45) ABG pCO2 (Temp Corrct (35-46) mmHg POC ABG pO2 at Pt Temp POC ABG O2 Sat (90-95) % Tavo Test O2 Delivery Device POC O2 Rate POC FiO2 % Tidal Volume PEEP POC Sodium (135-144) mmol/L Sodium (136-145) mmol/L POC Potassium (3.3-5.0) mmol/L Potassium (3.5-5.1) mmol/L Chloride (98-107) mmol/L Carbon Dioxide (21-32) mmol/L Anion Gap (3-11) BUN (7-18) mg/dl Creatinine (0.6-1.4) mg/dl Est Cr Clr Drug Dosing ml/min Est GFR ( Amer) Est GFR (Non-Af Amer) BUN/Creatinine Ratio (10-20) Glucose (70-99) mg/dl POC Glucose 146 H 147 H 208 H (70-99) mg/dl Calcium (8.5-10.1) mg/dl Phosphorus (2.5-4.9) mg/dl Magnesium (1.8-2.4) mg/dl PG Care Time/CCT Total # of Minutes Spent Total Time Spent with Patient: Total time spent is greater than 50% in coordination of care (as documented) at patient's floor/unit and/or counseling patient: Coding Level of Care Code 37874 Subseq Hosp Care Lvl 1 Diagnoses Pneumonia due to COVID-19 virus U07.1; J12.82 Acute hypoxemic respiratory failure J96.01 Sepsis A41.9 Acute kidney injury N17.9 Anxiety F41.9 Hypokalemia E87.6 Hypertension I10 CAD (coronary artery disease), [place] coronary artery I25.10 Hyperlipidemia E78.5 Diabetes mellitus type 2 in obese E11.69; E66.9 DVT prophylaxis Z29.9
[2020-07-25] MEDS ORDERED: METOPROLOL TARTRATE 1 MG/ML VIAL IV PRN (18:48)
[2020-07-26] MEDS: INSULIN ASPART 100 UNITS/ML 3 ML PEN SC SCH ×7 (00:13→23:29)
[2020-07-26 05:16] LABS: Basophils # (auto) 0.01 K/uL (0-0.2); Basophils % (auto) 0.1 %; Eosinophils # (auto) 0.12 K/uL (0-0.5); Eosinophils % (auto) 0.8 %; Hematocrit (blood only) 39.9 % (42-52); Immature Granulocytes # (auto) 0.05 K/uL (0.00-0.02); Immature Granulocytes % (auto) 0.3 %; Lymphocytes # (auto) 1.04 K/uL (1.2-3.4); Lymphocytes % (auto) 7.3 %; Mean Corpuscular Hemoglobin 31.3 pg (25-34); Mean Corpuscular Hgb Conc 32.6 g/dL (32-36); Mean Corpuscular Volume 96.1 fL (80-100); Mean Platelet Volume 10.3 fL (7.4-10.4); Monocytes # (auto) 1.14 K/uL (0.11-0.59); Neutrophils # (auto) 11.95 K/uL (1.4-6.5); Neutrophils % (auto) 83.5 %; Platelet Count 145 K/uL (130-400); RDW Coefficient of Variation 14.4 % (11.5-14.5); RDW Standard Deviation 50.4 fL (36.4-46.3); Red Blood Count 4.15 M/uL (4.7-6.1); White Blood Count 14.31 K/uL (4.8-10.8)
[2020-07-26 05:34] LABS: BUN Creatinine Ratio 45.7 (10-20); Calcium 8.4 mg/dl (8.5-10.1); Creatinine Clr Calc Pharmacy 115.3 ml/min; Est GFR (African American) 106.6; Magnesium 2.5 mg/dl (1.8-2.4); Potassium 3.7 mmol/L (3.5-5.1)
[2020-07-26 05:39] LABS: Phosphorus 3.2 mg/dl (2.5-4.9)
[2020-07-26] MEDS: POTASSIUM CHLORIDE / WTR 10 MEQ/100 ML PLCT IV SCH ×2 (08:06→10:50)
[2020-07-26] MEDS: dexAMETHasone 10 MG in SYRINGE 0 ML IV SCH (08:07)
[2020-07-26] MEDS: ENOXAPARIN INJ 40 MG/0.4 ML SYR SQ SCH ×2 (08:07→19:37)
[2020-07-26] MEDS: FUROSEMIDE 40 MG in SYRINGE 0 ML IV SCH (08:07)
--- NOTE | 2020-07-26 08:13 | XRay Report ---
XR chest 1V portable HISTORY: 65 years-old Male f/u follow-up study in a patient with respiratory failure. COMPARISON: Chest radiographs 07/25/2020 TECHNIQUE: Portable AP view of the chest FINDINGS: Cardiac silhouette is enlarged. Interval extubation along with removal of the enteric tube. Calcified plaque of the thoracic aorta. Bilateral reticular interstitial opacities are redemonstrated and have mildly worsened throughout the left lung with ill-defined airspace densities. Lungs are hypoinflated . Calcific granuloma of the left lung base. No pneumothorax or large pleural effusion. Bones appear g rossly intact. IMPRESSION: 1. Interval extubation with removal of the enteric tube. 2. Progressively worsened opacities of the left lung are suggestive of asymmetric pulmonary edema florentin denilson pneumonitis. ACT 112: Negative or not required by law. The above report was generated using voice recognition software. It may contain grammatical, syntax o r spelling errors. Electronically signed by: Gary Treadwell M.D. 07/26/2020 8:12 AM
[2020-07-26] MEDS ORDERED: METOPROLOL TARTRATE 1 MG/ML VIAL IV PRN (09:45)
[2020-07-26] MEDS ORDERED: METOPROLOL TARTRATE 1 MG/ML VIAL IV SCH ×2 (10:00→12:00)
[2020-07-26 10:02] LABS: iSTAT Allen Test Pass; iSTAT Art Bld Gas pCO2 Correct 39 mmHg (35-46); iSTAT Art Bld Gas pH Corrected 7.508 (7.35-7.45); iSTAT Arterial Blood Gas HCO3 31 meg/L (19-24); iSTAT Arterial Blood Gas pCO2 38 mmHg (35-46); iSTAT Arterial Blood Gas pH 7.52 (7.35-7.45); iSTAT Arterial Blood Gas pO2 79 mmHg (80-95); iSTAT Arterial Blood Gas pO2 C 81; iSTAT Carbon Dioxide 32 mmol/L (24-31); iSTAT FiO2 65 %; iSTAT Hematocrit 38 % (42-52); iSTAT Hemoglobin 12.9 g/dl (14.0-18.0); iSTAT Potassium 3.6 mmol/L (3.3-5.0); iSTAT Site R Radial; iSTAT Sodium 142 mmol/L (135-144)
[2020-07-26] MEDS: METOPROLOL TARTRATE 25 MG TAB PO SCH ×3 (10:11→19:37)
--- NOTE | 2020-07-26 10:45 | Pharmacy Report ---
Pharmacy Glycemic Short Note 2 - Date of Service July 26, 2020 - Glycemic Short BSG Results (Last 24 hours): 07/25/20 07/25/20 07/25/20 11:09 15:57 20:53 Glucose POC Glucose 148 H 184 H 119 H 07/26/20 07/26/20 07/26/20 00:02 04:48 04:54 Glucose 96 POC Glucose 126 H 98 07/26/20 08:54 Glucose POC Glucose 105 H OUTPATIENT ANTIDIABETIC REGIMEN: * n/a * A1c = 7.5% 07/20/20 ASSESSMENT: 07/26: * BSGs well controlled over last 24 hrs * 34 units SQ insulin administered over last 24 hrs * Patient remains extubated, speech eval later today to assess swallowing ability * Given ongoing NPO status, will hold NPH this AM and consider adding if diet advanced 07/25: * Patient well controlled with the exception of 1600 BSG yesterday at 208 mg/dL. * Tube feeds were stopped this morning as patient extubated and plan for speech to evaluate tomorrow. NPH was ordered prior to TFs stopping. Will monitor BSG throughout the day to ensure no significant downtrend with NPO status. L unchtime BSG remains stable. * Dexamethasone continues for one more day. Will hold off on scheduling any basal insulin for tomorrow until diet plan is more clear. 07/24: * Patient received 69 units of insulin yesterday 30 of which were basal. * Dexamethasone continues for 2 more days * BSGs much improved today. Will continue with Morning NPH only and monitor whether a second evening dose becomes necessary * TFs continue at goal. Will continue current q4 novolog scale. PLAN FOR INPATIENT GLYCEMIC CONTROL: * Basal insulin * none at this time * Bolus insulin * NovoLog per scale Q 4 hrs * Goal Range: Low 110 mg/dL - High 140 mg/dL * Correction Factor: 12 mg/dL/unit * Nutritional / Prandial insulin per carb ratio of 1 unit per 4 grams CHO consumed
[2020-07-26] MEDS: ATORVASTATIN 40 MG TAB PO SCH (10:50)
[2020-07-26] MEDS: TELMISARTAN 40 MG TAB PO SCH (10:51)
[2020-07-26] MEDS: ASPIRIN 81 MG CHEW PO SCH (10:52)
[2020-07-26] MEDS: POLYETHYLENE (MIRALAX) 17 GM PACK PO SCH (10:58)
--- NOTE | 2020-07-26 12:09 | Critical Care Progress Note ---
Date of Service July 26, 2020 Assessment & Plan (1) Acute hypoxemic respiratory failure: (2) Pneumonia due to COVID-19 virus: Patient was discussed in the multidisciplinary rounds. Impression: 65-year-old male with morbid obesity and ARDS secondary to COVID-19 pneumonia. He is failed conservative measures with oxygen and BiPAP and intubation mechanical ventilation were instituted Neurologic: -Encephalopathy Improved MRI brain negative we can wean this further. Following commands. 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 Extubated 07/25/2020 after 14 days of mechanical ventilation Status post bronchoscopy on 07/20/2020. Sputum cultures growing MRSA. On linezo lid, will complete total 10 days of it. Cardiovascular: -Nonsustained V. tach Patient on beta-gloria Keep potassium greater than 4, magnesium greater than 2, phosphorus greater than 3 -History of coronary artery disease with CARSON, continue ASA. -Hypertension with dyslipidemia Continue with statin Continue with beta-gloria and RHONDA inhibitor to control the blood pressure -Prolonged QTC Avoid QT prolonging medication QTC 462 07/24/2020 Renal: Monitor BUNs/creatinine continue electrolyte replacement per ICU protocol. Replace electrolytes as needed. GI: Continue MiraLAX. ID: Completed 7 days worth of treatment for a urinary tract infection with Rocephin. Switched from vancomycin to linezolid on 07/23/2020 due to difficulty of dosing related to his obesity. Being treated for MRSA pneumonia Endocrine: ICU glycemic control per protocol. Heme-onc: No current issues. --Prophylaxis VTE: Lovenox 40 mg every 12 GI: Pantoprazole Lines: Left subclavian 07/11/2020 DC'd 07/24/2020, arterial line DC 07/25/2020 Diet: Tube feeds Plan: In/out: -372, urine output 1227 Continue with linezolid for total of 10 days for MRSA pneumonia Swallow eval today. Today will be the last dose of 10 mg of dexamethasone. Given the patient was on dexamethasone for prolonged time, will gradually taper it off. PT OT. Out of bed to chair. Javier Lawrence [phone] I have personally spent 37 minutes of critical care time in the direct management of this patient. This is a life/limb threatening event. This includes time spent evaluating patient, direct bedside care, chart review, placing orders, interpretation of diagnostic studies, discussion with consultants, patient, and family members, as well as other required patient management activities. This time is exclusive of all separately billable procedures, and teaching time and separate from and in addition to any other critical care service time. Please note the above document was generated using voice recognition software. It may contain grammatical, syntax or spelling errors. (3) Hypervolemia: (4) Morbid obesity due to excess calories: (5) Acute encephalopathy: (6) MRSA pneumonia: Admission and Anticipated Discharge Date Admission Date: July 08, 2020 Subjective Patient seen and examined at bedside. No acute distress. At the time of examination patient was on 90% FiO2, 60 L high flow. He was saturating 89%. Is high flow nasal cannula was not in appropriate position. On putting it in appropriate position his saturation went up to 95%. I was gradually able to titrate down the FiO2 to 70%. Patient is a little lethargic today but still answers questions appropriately. Follows commands. Review of Systems Review of Systems: All systems reviewed & are unremarkable except as noted in Subjective Physical Exam Physical Exam: Constitutional: No acute distress HEENT: EOMI, PERRLA Respiratory system: Decreased air entry bilaterally, no wheeze, no rhonchi, positive crackles bilateral lower lobes CVS: S1-S2 positive, no murmurs or gallops Abdomen: Soft, nontender, nondistended, positive bowel sounds x4, obese Extremities: +2 pulses bilaterally radialis/ dorsalis pedis, no cyanosis, +1 pitting edema Neuro: Awake and alert, following simple commands Psych: Normal mood and affect G/U: No Alicia Skin: no rashes, warm and dry Lymphatic: no cervical or axillary lymphadenopathy Results & Data Results & Data ([facility] [place]) Vital Signs (Past 12 Hours) Vital Signs Temp Pulse Pulse Resp BP Pulse Ox 07/26/20 11:47 79 22 92 07/26/20 10:25 77 20 91 07/26/20 10:23 77 20 93 07/26/20 07:34 87 87 18 90 07/26/20 06:00 93 H 19 95 07/26/20 05:30 97 H 21 94 07/26/20 05:00 87 20 125/78 93 07/26/20 04:30 91 H 16 94 07/26/20 04:00 37.3 C 87 18 115/73 93 07/26/20 03:50 102 H 19 93 07/26/20 03:30 96 H 15 95 07/26/20 03:00 91 H 19 106/77 94 07/26/20 02:30 89 18 94 07/26/20 02:00 84 18 118/74 94 07/26/20 01:30 91 H 17 94 07/26/20 01:00 86 18 113/76 95 07/26/20 00:30 96 H 19 94 07/26/20 00:10 102 H 19 93 07/26/20 04:48 07/26/20 04:48 Coding Level of Care Code Critical Care 1st 30-74 mins Diagnoses Acute hypoxemic respiratory failure J96.01 Pneumonia due to COVID-19 virus U07.1; J12.82 Hypervolemia E87.70 Morbid obesity due to excess calories E66.01 Acute encephalopathy G93.40 MRSA pneumonia J15.212 Time Spent (min) 37
[2020-07-26] MEDS: PANTOprazole 40 MG in SYRINGE 0 ML IV SCH (14:15)
[2020-07-26] MEDS: LINEZOLID 600 MG/300 ML BAG IV SCH ×2 (14:15→23:14)
[2020-07-26] MEDS: ACETAMINOPHEN SUSP 325 MG/10.15 ML UDC OG PRN (14:34)
--- NOTE | 2020-07-26 16:55 | Hospitalist Progress Note ---
Date of Service July 26, 2020 Assessment & Plan (1) Pneumonia due to COVID-19 virus: Pneumonia due to COVID-19 He had a positive test 7 days BRUSH HAND at [facility] [employer] [facility] with no previous treatment. he got worse despite Vapotherm and BIPAP Chest x-ray and overall picture consistent with ARDS Transferred to ICU and was intubated and is mechanically ventilated as of the a.m. 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 Continues on high dose Decadron 10 mg daily at this time-today is last day Overall improved, FiO2 down to 60% (2) Acute hypoxemic respiratory failure: As noted above severe ARDS, following ARDSnet protocol Now extubated as above after 14 days Improving, on HFNC as above (3) Sepsis: Sepsis in setting of COVID-19 pneumonia, secondary MRSA pneumonia, with septic shock Now weaned off levophed on 07/15 fevers as above -Continue tx for MRSA PNA w/ linezolid monitor closely -Consider repeating blood and urine cultures if fevers persist -removing Alicia 07/25, central line removed 07/24 (4) Acute kidney injury: Creatinine 2.38 upon admission, with recent 1.36 BRUSH HAND Now resolved giving Lasix 40mg IV daily to keep lungs dry Follow CMP Follow urine output Alicia catheter removed 07/25 (5) Anxiety: On lorazepam 1 mg 3 times daily at home Was on Versed, then Precedex for sedation, now off completely Watch for withdrawal -Consider adding on as needed lorazepam (6) Hypokalemia: K is stable Follow BMP in the setting of daily IV Lasix (7) Hypertension: BP now controlled-was high while weaning from vent Previously held home telmisartan/HCT for acute kidney injury, but have since restarted home telmisartan -continue metoprolol 25 mg po bid (8) CAD (coronary artery disease), bois forte coronary artery: With a history of coronary stent Troponin minimally elevated and stable x2 most likely secondary to myocardial demand ischemia from profound hypoxia -continue aspirin 81 mg daily given presence of stent -continue statin -continue metoprolol tartrate for now but on Toprol 50 at home (9) Hyperlipidemia: Continue atorvastatin 80 mg every morning (10) Diabetes mellitus type 2 in obese: HgbA1C 7.5% here With hyperglycemia in setting of COVID/Sepsis and steroid use -continue insulin (11) Fever: as above, persisting thought is that perhaps these are still from his MRSA PNA not being adequately treated previously with IV Vanco continue linezolid and extending course consider repeat BCxs, UA and Ur cx if not improving (12) MRSA pneumonia: as above (13) DVT prophylaxis: Lovenox 40 mg SQ every 12 FEN- tube feeds stopped after extubation, now passed Speech eval, on full liquids diet, moving bowels GI prophylaxis-IV Protonix Disposition-continued stay in ICU DNR Admission and Anticipated Discharge Date Admission Date: July 08, 2020 Subjective Pt on HFNC during the day and was on BiPAP overnight. He passed a swallow eval today. He reports he feels "good." Still having fevers. had 2 BMs yesterday. Review of Systems Review of Systems: All systems reviewed & are unremarkable except as noted in HPI & below Physical Exam Constitutional: WD/WN, vitals as above + obese; no acute distress Eyes: + anicteric sclerae ENMT: Nose: no external nose abnormality Neck: trachea midline, no thyromegaly Respiratory: + labored breathing Auscultation: + crackles (In lower and middle lung muñoz bilaterally); no wheezes Cardiovascular: RRR, no murmur, no edema Chest (Breasts): Chest: normal inspection of chest Gastrointestinal (Abdomen): normal bowel sounds, soft, nontender, no hepatosplenomegaly Musculoskeletal: Extremities: extremities normal to inspection; no cyanosis and no clubbing Skin: no rashes, warm and dry Neurologic: moves all extremities; no focal motor deficits Psychiatric: Orientation: oriented to person, oriented to place and cooperative Speech: normal rate/rhythm/volume of speech Lymphatic: no lymphedema Results & Data Results & Data ([facility]) Vital Signs (Past 12 Hours) Vital Signs Temp Pulse Pulse Resp BP Pulse Ox 07/26/20 15:33 79 23 115/70 94 07/26/20 15:22 78 20 94 07/26/20 14:33 78 20 106/65 92 07/26/20 14:31 38 C H 07/26/20 13:33 79 18 103/62 91 07/26/20 12:33 82 20 107/71 93 07/26/20 12:00 37.7 C H 07/26/20 11:47 79 22 92 07/26/20 11:33 95 H 20 126/92 92 07/26/20 11:23 97 H 19 126/80 91 07/26/20 10:25 77 20 91 07/26/20 10:23 98 H 27 H 142/80 H 88 L 07/26/20 09:23 95 H 19 146/93 H 93 07/26/20 08:23 90 16 115/84 91 07/26/20 07:34 87 87 18 90 07/26/20 07:23 90 20 108/72 88 L 07/26/20 06:00 93 H 19 95 07/26/20 05:30 97 H 21 94 07/26/20 05:00 87 20 125/78 93 Laboratory Results 07/26/20 07/26/20 07/26/20 Range/Units 16:35 11:52 08:54 WBC (4.8-10.8) K/uL RBC (4.7-6.1) M/uL Hgb (14.0-18.0) g/dL POC Hgb (14.0-18.0) g/dl Hct (42-52) % POC Hct (42-52) % MCV (80-100) fL MCH (25-34) pg MCHC (32-36) g/dL RDW Std Deviation (36.4-46.3) fL RDW Coeff of Fernanda (11.5-14.5) % Plt Count (130-400) K/uL MPV (7.4-10.4) fL Immature Gran % (Auto) % Neut % (Auto) % Lymph % (Auto) % [place] % (Auto) % Eos % (Auto) % Baso % (Auto) % Neut # (Auto) (1.4-6.5) K/uL Lymph # (Auto) (1.2-3.4) K/uL [place] # (Auto) (0.11-0.59) K/uL Eos # (Auto) (0-0.5) K/uL Baso # (Auto) (0-0.2) K/uL Immature Gran # (Auto) (0.00-0.02) K/uL Sample Site POC pH (7.35-7.45) POC pCO2 (35-46) mmHg POC pO2 (80-95) mmHg POC HCO3 (19-24) nakul/L POC Total CO2 (24-31) mmol/L POC Base Excess (-9-1.8) nakul/L ABG pH (Temp Correct) (7.35-7.45) ABG pCO2 (Temp Corrct (35-46) mmHg POC ABG pO2 at Pt Temp POC ABG O2 Sat (90-95) % Tavo Test O2 Delivery Device POC O2 Rate POC FiO2 % IPAP POC Sodium (135-144) mmol/L Sodium (136-145) mmol/L POC Potassium (3.3-5.0) mmol/L Potassium (3.5-5.1) mmol/L Chloride (98-107) mmol/L Carbon Dioxide (21-32) mmol/L Anion Gap (3-11) BUN (7-18) mg/dl Creatinine (0.6-1.4) mg/dl Est Cr Clr Drug Dosing ml/min Est GFR ( Amer) Est GFR (Non-Af Amer) BUN/Creatinine Ratio (10-20) Glucose (70-99) mg/dl POC Glucose 196 H 171 H 105 H (70-99) mg/dl Calcium (8.5-10.1) mg/dl Phosphorus (2.5-4.9) mg/dl Magnesium (1.8-2.4) mg/dl C-Reactive Protein (0-0.29) mg/dl 07/26/20 07/26/20 07/26/20 Range/Units 08:44 04:54 04:48 WBC (4.8-10.8) K/uL RBC (4.7-6.1) M/uL Hgb (14.0-18.0) g/dL POC Hgb 12.9 L (14.0-18.0) g/dl Hct (42-52) % POC Hct 38 L (42-52) % MCV (80-100) fL MCH (25-34) pg MCHC (32-36) g/dL RDW Std Deviation (36.4-46.3) fL RDW Coeff of Fernanda (11.5-14.5) % Plt Count (130-400) K/uL MPV (7.4-10.4) fL Immature Gran % (Auto) % Neut % (Auto) % Lymph % (Auto) % [place] % (Auto) % Eos % (Auto) % Baso % (Auto) % Neut # (Auto) (1.4-6.5) K/uL Lymph # (Auto) (1.2-3.4) K/uL [place] # (Auto) (0.11-0.59) K/uL Eos # (Auto) (0-0.5) K/uL Baso # (Auto) (0-0.2) K/uL Immature Gran # (Auto) (0.00-0.02) K/uL Sample Site R Radial POC pH 7.52 H* (7.35-7.45) POC pCO2 38 (35-46) mmHg POC pO2 79 L (80-95) mmHg POC HCO3 31 H (19-24) nakul/L POC Total CO2 32 H (24-31) mmol/L POC Base Excess 8.0 H (-9-1.8) nakul/L ABG pH (Temp Correct) 7.508 H* (7.35-7.45) ABG pCO2 (Temp Corrct 39 (35-46) mmHg POC ABG pO2 at Pt Temp 81 POC ABG O2 Sat 97.0 H (90-95) % Tavo Test Pass O2 Delivery Device BIPAP POC O2 Rate 18 POC FiO2 65 % IPAP 12 POC Sodium 142 (135-144) mmol/L Sodium (136-145) mmol/L POC Potassium 3.6 (3.3-5.0) mmol/L Potassium (3.5-5.1) mmol/L Chloride (98-107) mmol/L Carbon Dioxide (21-32) mmol/L Anion Gap (3-11) BUN (7-18) mg/dl Creatinine (0.6-1.4) mg/dl Est Cr Clr Drug Dosing ml/min Est GFR ( Amer) Est GFR (Non-Af Amer) BUN/Creatinine Ratio (10-20) Glucose (70-99) mg/dl POC Glucose 98 (70-99) mg/dl Calcium (8.5-10.1) mg/dl Phosphorus (2.5-4.9) mg/dl Magnesium (1.8-2.4) mg/dl C-Reactive Protein 1.73 H (0-0.29) mg/dl 07/26/20 07/26/20 07/26/20 Range/Units 04:48 04:48 00:02 WBC 14.31 H (4.8-10.8) K/uL RBC 4.15 L (4.7-6.1) M/uL Hgb 13.0 L (14.0-18.0) g/dL POC Hgb (14.0-18.0) g/dl Hct 39.9 L (42-52) % POC Hct (42-52) % MCV 96.1 (80-100) fL MCH 31.3 (25-34) pg MCHC 32.6 (32-36) g/dL RDW Std Deviation 50.4 H (36.4-46.3) fL RDW Coeff of Fernanda 14.4 (11.5-14.5) % Plt Count 145 (130-400) K/uL MPV 10.3 (7.4-10.4) fL Immature Gran % (Auto) 0.3 % Neut % (Auto) 83.5 % Lymph % (Auto) 7.3 % [place] % (Auto) 8.0 % Eos % (Auto) 0.8 % Baso % (Auto) 0.1 % Neut # (Auto) 11.95 H (1.4-6.5) K/uL Lymph # (Auto) 1.04 L (1.2-3.4) K/uL [place] # (Auto) 1.14 H (0.11-0.59) K/uL Eos # (Auto) 0.12 (0-0.5) K/uL Baso # (Auto) 0.01 (0-0.2) K/uL Immature Gran # (Auto) 0.05 H (0.00-0.02) K/uL Sample Site POC pH (7.35-7.45) POC pCO2 (35-46) mmHg POC pO2 (80-95) mmHg POC HCO3 (19-24) nakul/L POC Total CO2 (24-31) mmol/L POC Base Excess (-9-1.8) nakul/L ABG pH (Temp Correct) (7.35-7.45) ABG pCO2 (Temp Corrct (35-46) mmHg POC ABG pO2 at Pt Temp POC ABG O2 Sat (90-95) % Tavo Test O2 Delivery Device POC O2 Rate POC FiO2 % IPAP POC Sodium (135-144) mmol/L Sodium 144 (136-145) mmol/L POC Potassium (3.3-5.0) mmol/L Potassium 3.7 (3.5-5.1) mmol/L Chloride 108 H (98-107) mmol/L Carbon Dioxide 31 (21-32) mmol/L Anion Gap 5.0 (3-11) BUN 37 H (7-18) mg/dl Creatinine 0.81 (0.6-1.4) mg/dl Est Cr Clr Drug Dosing 115.3 ml/min Est GFR ( Amer) 106.6 Est GFR (Non-Af Amer) 92.0 BUN/Creatinine Ratio 45.7 H (10-20) Glucose 96 (70-99) mg/dl POC Glucose 126 H (70-99) mg/dl Calcium 8.4 L (8.5-10.1) mg/dl Phosphorus 3.2 (2.5-4.9) mg/dl Magnesium 2.5 H (1.8-2.4) mg/dl C-Reactive Protein (0-0.29) mg/dl 07/25/20 Range/Units 20:53 WBC (4.8-10.8) K/uL RBC (4.7-6.1) M/uL Hgb (14.0-18.0) g/dL POC Hgb (14.0-18.0) g/dl Hct (42-52) % POC Hct (42-52) % MCV (80-100) fL MCH (25-34) pg MCHC (32-36) g/dL RDW Std Deviation (36.4-46.3) fL RDW Coeff of Fernanda (11.5-14.5) % Plt Count (130-400) K/uL MPV (7.4-10.4) fL Immature Gran % (Auto) % Neut % (Auto) % Lymph % (Auto) % [place] % (Auto) % Eos % (Auto) % Baso % (Auto) % Neut # (Auto) (1.4-6.5) K/uL Lymph # (Auto) (1.2-3.4) K/uL [place] # (Auto) (0.11-0.59) K/uL Eos # (Auto) (0-0.5) K/uL Baso # (Auto) (0-0.2) K/uL Immature Gran # (Auto) (0.00-0.02) K/uL Sample Site POC pH (7.35-7.45) POC pCO2 (35-46) mmHg POC pO2 (80-95) mmHg POC HCO3 (19-24) nakul/L POC Total CO2 (24-31) mmol/L POC Base Excess (-9-1.8) nakul/L ABG pH (Temp Correct) (7.35-7.45) ABG pCO2 (Temp Corrct (35-46) mmHg POC ABG pO2 at Pt Temp POC ABG O2 Sat (90-95) % Tavo Test O2 Delivery Device POC O2 Rate POC FiO2 % IPAP POC Sodium (135-144) mmol/L Sodium (136-145) mmol/L POC Potassium (3.3-5.0) mmol/L Potassium (3.5-5.1) mmol/L Chloride (98-107) mmol/L Carbon Dioxide (21-32) mmol/L Anion Gap (3-11) BUN (7-18) mg/dl Creatinine (0.6-1.4) mg/dl Est Cr Clr Drug Dosing ml/min Est GFR ( Amer) Est GFR (Non-Af Amer) BUN/Creatinine Ratio (10-20) Glucose (70-99) mg/dl POC Glucose 119 H (70-99) mg/dl Calcium (8.5-10.1) mg/dl Phosphorus (2.5-4.9) mg/dl Magnesium (1.8-2.4) mg/dl C-Reactive Protein (0-0.29) mg/dl PG Care Time/CCT Total # of Minutes Spent Total Time Spent with Patient: Total time spent is greater than 50% in coordination of care (as documented) at patient's floor/unit and/or counseling patient: Coding Level of Care Code 09473 Subseq Hosp Care Lvl 2 Diagnoses Pneumonia due to COVID-19 virus U07.1; J12.82 Acute hypoxemic respiratory failure J96.01 Sepsis A41.9 Acute kidney injury N17.9 Anxiety F41.9 Hypokalemia E87.6 Hypertension I10 CAD (coronary artery disease), bois forte coronary artery I25.10 Hyperlipidemia E78.5 Diabetes mellitus type 2 in obese E11.69; E66.9 Fever R50.9 MRSA pneumonia J15.212 DVT prophylaxis Z29.9
[2020-07-27] MEDS: INSULIN ASPART 100 UNITS/ML 3 ML PEN SC SCH ×5 (05:18→21:09)
[2020-07-27 05:21] LABS: Basophils # (auto) 0.01 K/uL (0-0.2); Basophils % (auto) 0.1 %; Eosinophils # (auto) 0.23 K/uL (0-0.5); Eosinophils % (auto) 1.6 %; Hematocrit (blood only) 40.5 % (42-52); Hemoglobin 13.2 g/dL (14.0-18.0); Immature Granulocytes # (auto) 0.09 K/uL (0.00-0.02); Immature Granulocytes % (auto) 0.6 %; Lymphocytes # (auto) 1.23 K/uL (1.2-3.4); Lymphocytes % (auto) 8.3 %; Mean Corpuscular Hemoglobin 30.8 pg (25-34); Mean Corpuscular Hgb Conc 32.6 g/dL (32-36); Mean Corpuscular Volume 94.6 fL (80-100); Mean Platelet Volume 10.2 fL (7.4-10.4); Monocytes # (auto) 1.27 K/uL (0.11-0.59); Monocytes % (auto) 8.6 %; Neutrophils # (auto) 11.96 K/uL (1.4-6.5); Neutrophils % (auto) 80.8 %; Platelet Count 171 K/uL (130-400); RDW Coefficient of Variation 14.1 % (11.5-14.5); RDW Standard Deviation 48.4 fL (36.4-46.3); Red Blood Count 4.28 M/uL (4.7-6.1); White Blood Count 14.79 K/uL (4.8-10.8)
[2020-07-27 05:50] LABS: BUN Creatinine Ratio 39.8 (10-20); Calcium 8.3 mg/dl (8.5-10.1); Creatinine Clr Calc Pharmacy 106.3 ml/min; Est GFR (African American) 104.5; Est GFR (Non-African American) 90.2; Magnesium 2.4 mg/dl (1.8-2.4); Phosphorus 3.3 mg/dl (2.5-4.9); Potassium 3.9 mmol/L (3.5-5.1)
--- NOTE | 2020-07-27 07:32 | Critical Care Progress Note ---
Date of Service July 27, 2020 Assessment & Plan (1) Acute hypoxemic respiratory failure: (2) Pneumonia due to COVID-19 virus: Patient was discussed in the multidisciplinary rounds. Impression: 65-year-old male with morbid obesity and ARDS secondary to COVID-19 pneumonia. He is failed conservative measures with oxygen and BiPAP and intubation mechanical ventilation were instituted Neurologic: -Encephalopathy Improved MRI brain negative we can wean this further. Following commands. 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 Extubated 07/25/2020 after 14 days of mechanical ventilation Status post bronchoscopy on 07/20/2020. Sputum cultures growing MRSA. On linezo lid, will complete total 10 days of it. Cardiovascular: -Nonsustained V. tach Patient on beta-gloria Keep potassium greater than 4, magnesium greater than 2, phosphorus greater than 3 -History of coronary artery disease with CARSON, continue ASA. -Hypertension with dyslipidemia Continue with statin Continue with beta-gloria and RHONDA inhibitor to control the blood pressure -Prolonged QTC Avoid QT prolonging medication QTC 462 07/24/2020 Renal: Monitor BUNs/creatinine continue electrolyte replacement per ICU protocol. Replace electrolytes as needed. GI: Continue MiraLAX. ID: Completed 7 days worth of treatment for a urinary tract infection with Rocephin. Switched from vancomycin to linezolid on 07/23/2020 due to difficulty of dosing related to his obesity. Being treated for MRSA pneumonia Endocrine: ICU glycemic control per protocol. Heme-onc: No current issues. --Prophylaxis VTE: Lovenox 40 mg every 12 GI: Pantoprazole Lines: Left subclavian 07/11/2020 DC'd 07/24/2020, arterial line DC 07/25/2020 Diet: Cardiac p.o. intake Plan: In/out: +[phone], patient has been incontinent. No good output measurement Patient is still spiking fever. Patient blood culture has been negative, urine culture has been negative. The only thing positive was sputum culture for MRSA for which he is getting antibiotic. Patient has no Alicia, no central line. The source of fever is likely underlying COVID-19 infection. Continue with linezolid for total of 10 days for MRSA pneumonia Start tapering steroids of with 40 mg of prednisone today. PT OT. Out of bed to chair. Patient is hemodynamically stable to be sent out of MICU. Patient will benefit from LTAC with aggressive PT OT. Javier Lawrence [phone] was called and updated regarding patient's current condition. Please note the above document was generated using voice recognition software. It may contain grammatical, syntax or spelling errors.Any formal questions or concerns about the content, text or information contained within the body of this dictation should be directly addressed to the provider for clarification. (3) Hypervolemia: (4) Morbid obesity due to excess calories: (5) Acute encephalopathy: (6) MRSA pneumonia: Admission and Anticipated Discharge Date Admission Date: July 08, 2020 Subjective Patient seen and examined at bedside. No acute distress, no adverse events overnight. Patient was on CPAP 6 at the time of examination. He was somnolent but answering questions and moving extremities on command. Denied any headache, no chest pain. Review of Systems Review of Systems: All systems reviewed & are unremarkable except as noted in Subjective Physical Exam Physical Exam: Constitutional: No acute distress HEENT: EOMI, PERRLA Respiratory system: Decreased air entry bilaterally, no wheeze, no rhonchi, positive crackles bilateral lower lobes CVS: S1-S2 positive, no murmurs or gallops Abdomen: Soft, nontender, nondistended, positive bowel sounds x4, obese Extremities: +2 pulses bilaterally radialis/ dorsalis pedis, no cyanosis, no edema Neuro: Awake and alert, following simple commands Psych: Normal mood and affect G/U: No Alicia Skin: no rashes, warm and dry Lymphatic: no cervical or axillary lymphadenopathy Results & Data Results & Data ([facility]) Vital Signs (Past 12 Hours) Vital Signs Temp Pulse Pulse Resp BP Pulse Ox 07/27/20 05:34 89 19 119/85 94 07/27/20 04:34 92 H 21 138/77 94 07/27/20 04:30 37.4 C 07/27/20 04:10 92 H 23 95 07/27/20 03:33 91 H 20 121/78 94 07/27/20 02:33 93 H 20 127/75 93 07/27/20 01:34 88 19 105/75 93 07/27/20 00:34 100 H 19 112/71 92 07/26/20 23:34 86 20 145/84 H 91 02/25/21 23:30 37.6 C H 07/26/20 23:06 83 07/26/20 22:59 80 19 93 07/26/20 22:34 82 21 133/75 89 L 07/26/20 21:34 82 19 116/77 91 07/26/20 20:42 37.0 C 87 07/26/20 20:33 84 19 119/74 90 07/26/20 20:14 86 20 92 07/26/20 19:33 88 19 124/73 91 07/27/20 05:06 07/27/20 05:06 Coding Level of Care Code 14306 Subseq Hosp Care Lvl 3 Diagnoses Acute hypoxemic respiratory failure J96.01 Pneumonia due to COVID-19 virus U07.1; J12.82 Hypervolemia E87.70 Morbid obesity due to excess calories E66.01 Acute encephalopathy G93.40 MRSA pneumonia J15.212
[2020-07-27] MEDS: PANTOprazole 40 MG TAB PO SCH (08:12)
[2020-07-27] MEDS: FUROSEMIDE 40 MG TAB PO SCH (08:12)
[2020-07-27] MEDS: TELMISARTAN 40 MG TAB PO SCH (08:13)
[2020-07-27] MEDS: METOPROLOL TARTRATE 25 MG TAB PO SCH ×2 (08:13→21:20)
[2020-07-27] MEDS: ATORVASTATIN 40 MG TAB PO SCH (08:13)
[2020-07-27] MEDS: ENOXAPARIN INJ 40 MG/0.4 ML SYR SQ SCH ×2 (08:14→21:20)
[2020-07-27] MEDS: ASPIRIN 81 MG CHEW PO SCH (08:16)
[2020-07-27] MEDS: POLYETHYLENE (MIRALAX) 17 GM PACK PO SCH (08:16)
[2020-07-27] MEDS ORDERED: ACETAMINOPHEN 1,000 MG/100 ML VIAL IV STA (08:59)
[2020-07-27] MEDS ORDERED: predniSONE 20 MG TAB PO ONE (09:45)
[2020-07-27] MEDS ORDERED: INSULIN HUMAN NPH SC ONE (09:45)
[2020-07-27] MEDS ORDERED: oxyCODONE HCL IR 5 MG TAB (IMMEDIATE RELEASE) PO PRN (09:48)
[2020-07-27] MEDS: LINEZOLID 600 MG/300 ML BAG IV SCH (11:19)
--- NOTE | 2020-07-27 14:15 | Pharmacy Report ---
Pharmacy Glycemic Short Note 2 - Date of Service July 27, 2020 - Glycemic Short BSG Results (Last 24 hours): 07/26/20 07/26/20 07/26/20 16:35 19:45 23:23 Glucose POC Glucose 196 H 159 H 105 H 07/27/20 07/27/20 07/27/20 04:43 05:06 08:28 Glucose 106 H POC Glucose 97 109 H 07/27/20 11:26 Glucose POC Glucose 114 H OUTPATIENT ANTIDIABETIC REGIMEN: * n/a * A1c = 7.5% 07/20/20 ASSESSMENT: 07/27: * BSGs acceptable over last 24 hrs * Diet has been advanced, he is eating much better today than yesterday. Linezolid continues. * Patient had received Dexamethasone x 19 days, and will be started on Prednisone taper today. 40mg Prednisone given this AM * NPH added to cover effects of AM prednisone * Will lessen Novolog dosing parameters given decrease in steroid equivalence 07/26: * BSGs well controlled over last 24 hrs * 34 units SQ insulin administered over last 24 hrs * Patient remains extubated, speech eval later today to assess swallowing ability * Given ongoing NPO status, will hold NPH this AM and consider adding if diet advanced 07/25: * Patient well controlled with the exception of 1600 BSG yesterday at 208 mg/dL. * Tube feeds were stopped this morning as patient extubated and plan for speech to evaluate tomorrow. NPH was ordered prior to TFs stopping. Will monitor BSG throughout the day to ensure no significant downtrend with NPO status. Lunchtime BSG remains stable. * Dexamethasone continues for one more day. Will hold off on scheduling any basal insulin for tomorrow until diet plan is more clear. 07/24: * Patient received 69 units of insulin yesterday 30 of which were basal. * Dexamethasone continues for 2 more days * BSGs much improved today. Will continue with Morning NPH only and monitor whether a second evening dose becomes necessary * TFs continue at goal. Will continue current q4 novolog scale. PLAN FOR INPATIENT GLYCEMIC CONTROL: * Basal insulin * NPH 20 units x 1 w/ AM prednisone - reassess tomorrow * Bolus insulin * NovoLog per scale Q ACHS * Goal Range: Low 110 mg/dL - High 140 mg/dL * Correction Factor: 15 mg/dL/unit * Nutritional / Prandial insulin per carb ratio of 1 unit per 5 grams CHO consumed
--- NOTE | 2020-07-27 16:20 | Hospitalist Progress Note ---
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 he got worse despite Vapotherm and BIPAP Chest x-ray and overall picture consistent with ARDS Transferred to ICU and was intubated and is mechanically ventilated as of the a.m. 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 difficile No LFTs checked in 8 days-no real abdominal pain now Check UA Check repeat blood cultures on 07/27 Check LFTs continue linezolid (5) Sepsis: Sepsis in setting of COVID-19 pneumonia, secondary MRSA pneumonia, with septic shock Now weaned off levophed on 07/15 fevers as above -Continue tx for MRSA PNA w/ linezolid -removing Alicia 07/25, central line removed 07/24 -Checking C. 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 Now resolved giving Lasix 40mg IV daily to keep lungs dry Follow CMP Follow urine output Alicia catheter removed 07/25 (7) Acute encephalopathy: likely secondary to ICU delirium, 2 weeks worth of IV Versed, fentanyl MRI brain normal Supportive care, watch for withdrawal from benzodiazepines as he typically takes lorazepam 3 times a day at home prior to admission Redirection Continue treatment of hypoxia and fevers MRSA pneumonia, work-up for fever as above (8) Anxiety: On lorazepam 1 mg 3 times daily at home Was on Versed, then Precedex for sedation, now off completely Watch for withdrawal -Consider adding on as needed lorazepam (9) Hypokalemia: K is stable Follow BMP in the setting of daily Lasix (10) Hypertension: BP now controlled-was high while weaning from vent Previously held home telmisartan/HCT for acute kidney injury, but have since restarted home telmisartan -continue metoprolol 25 mg po bid -Continue Lasix but changed to 40 mg p.o. once daily IV hydralazine as needed (11) CAD (coronary artery disease), [place]ogee coronary artery: With a history of coronary stent Troponin minimally elevated and stable x2 most likely secondary to myocardial demand ischemia from profound hypoxia -continue aspirin 81 mg daily given presence of stent -continue statin -continue metoprolol tartrate for now but on Toprol 50 at home (12) Hyperlipidemia: Continue atorvastatin 80 mg every morning (13) Diabetes mellitus type 2 in obese: HgbA1C 7.5% here With hyperglycemia in setting of COVID/Sepsis and steroid use -continue insulin (14) Junctional rhythm: Noted on admitting ECG as well as intermittently on telemetry here Likely secondary to critical illness Follow and consult cardiology if needed if persists (15) DVT prophylaxis: Lovenox 40 mg SQ every 12 GI prophylaxis-convert IV Protonix to p.o. Disposition-downgrade from ICU and transfer to PCU DNR but desires reintubation if needed Admission and Anticipated Discharge Date Admission Date: July 08, 2020 Subjective Pt being weaned down on his HFNC today, continues to spike fevers. Was drowsy when I saw him and confused. He was slow to respond to questions and looked at me like I was strange. When I asked him where he was, he replied "[facility]." When asked what the year was, he said "2067...yeah 2067." Denies pain. RN reports he has been incontinent to urine. He was out of bed to the recliner when I saw him. Review of Systems Review of Systems: Unobtainable due to cognitive status Physical Exam Constitutional: WD/WN, vitals as above + obese; no acute distress Eyes: + anicteric sclerae ENMT: Nose: no external nose abnormality Neck: trachea midline, no thyromegaly Respiratory: normal respiratory effort (with HFNC in place) Auscultation: + crackles (In lower and middle lung muñoz bilaterally); no wheezes Cardiovascular: RRR, no murmur, no edema Chest (Breasts): Chest: normal inspection of chest Gastrointestinal (Abdomen): normal bowel sounds, soft, nontender, no hepatosplenomegaly Musculoskeletal: Extremities: extremities normal to inspection; no cyanosis and no clubbing Skin: no rashes, warm and dry Neurologic: moves all extremities; no focal motor deficits Psychiatric: Orientation: oriented to person and cooperative; + not oriented to place and + not oriented to time Eye Contact: + poor eye contact Speech: normal rate/rhythm/volume of speech Lymphatic: no lymphedema Results & Data Results & Data ([facility]) Vital Signs (Past 12 Hours) Vital Signs Temp Pulse Pulse Resp BP Pulse Ox 07/27/20 15:34 86 21 132/89 90 07/27/20 15:15 86 21 91 07/27/20 14:34 100 H 19 107/56 L 89 L 07/27/20 13:34 88 21 140/69 87 L 07/27/20 12:34 84 22 96/55 L 95 07/27/20 11:34 79 25 H 100/61 93 07/27/20 10:36 15 93 07/27/20 10:34 75 18 106/62 93 07/27/20 09:34 91 H 22 119/70 93 07/27/20 09:06 38.2 C H 07/27/20 08:34 98 H 20 126/77 91 07/27/20 08:25 88 15 89 L 07/27/20 08:15 92 H 21 93 07/27/20 07:34 88 22 119/68 95 07/27/20 05:34 89 19 119/85 94 07/27/20 04:34 92 H 21 138/77 94 07/27/20 04:30 37.4 C Laboratory Results 07/27/20 07/27/20 07/27/20 Range/Units 16:53 16:45 16:45 WBC (4.8-10.8) K/uL RBC (4.7-6.1) M/uL Hgb (14.0-18.0) g/dL Hct (42-52) % MCV (80-100) fL MCH (25-34) pg MCHC (32-36) g/dL RDW Std Deviation (36.4-46.3) fL RDW Coeff of Fernanda (11.5-14.5) % Plt Count (130-400) K/uL MPV (7.4-10.4) fL Immature Gran % (Auto) % Neut % (Auto) % Lymph % (Auto) % [place] % (Auto) % Eos % (Auto) % Baso % (Auto) % Neut # (Auto) (1.4-6.5) K/uL Lymph # (Auto) (1.2-3.4) K/uL [place] # (Auto) (0.11-0.59) K/uL Eos # (Auto) (0-0.5) K/uL Baso # (Auto) (0-0.2) K/uL Immature Gran # (Auto) (0.00-0.02) K/uL Sodium (136-145) mmol/L Potassium (3.5-5.1) mmol/L Chloride (98-107) mmol/L Carbon Dioxide (21-32) mmol/L Anion Gap (3-11) BUN (7-18) mg/dl Creatinine (0.6-1.4) mg/dl Est Cr Clr Drug Dosing ml/min Est GFR ( Amer) Est GFR (Non-Af Amer) BUN/Creatinine Ratio (10-20) Glucose (70-99) mg/dl POC Glucose 93 (70-99) mg/dl Calcium (8.5-10.1) mg/dl Phosphorus (2.5-4.9) mg/dl Magnesium (1.8-2.4) mg/dl Urine Color Dark Yellow Urine Appearance Clear (Clear) Urine pH 7.0 (4.5-7.5) Ur Specific Goodrich 1.025 (1.000-1.030) Urine Protein Negative (Negative) Urine Glucose (UA) Negative (Negative) Urine Ketones Negative (Negative) Urine Blood Negative (Negative) Urine Nitrite Negative (Negative) Urine Bilirubin Negative (Negative) Urine Urobilinogen Positive H (Negative) Ur Leukocyte Esterase Trace H (Negative) Urine WBC (Auto) 1-5 (0-5) /hpf Urine RBC (Auto) 0-4 (0-4) /hpf U Hyaline Cast (Auto) 1-5 (0-5) /lpf U Epithel Cells (Auto) 10-20 H (0-5) /lpf Urine Bacteria (Auto) Negative (Negative) Stl C. diff Tox B Gene Pending 07/27/20 07/27/20 07/27/20 Range/Units 11:26 08:28 05:06 WBC (4.8-10.8) K/uL RBC (4.7-6.1) M/uL Hgb (14.0-18.0) g/dL Hct (42-52) % MCV (80-100) fL MCH (25-34) pg MCHC (32-36) g/dL RDW Std Deviation (36.4-46.3) fL RDW Coeff of Fernanda (11.5-14.5) % Plt Count (130-400) K/uL MPV (7.4-10.4) fL Immature Gran % (Auto) % Neut % (Auto) % Lymph % (Auto) % [place] % (Auto) % Eos % (Auto) % Baso % (Auto) % Neut # (Auto) (1.4-6.5) K/uL Lymph # (Auto) (1.2-3.4) K/uL Larimer # (Auto) (0.11-0.59) K/uL Eos # (Auto) (0-0.5) K/uL Baso # (Auto) (0-0.2) K/uL Immature Gran # (Auto) (0.00-0.02) K/uL Sodium 142 (136-145) mmol/L Potassium 3.9 (3.5-5.1) mmol/L Chloride 106 (98-107) mmol/L Carbon Dioxide 32 (21-32) mmol/L Anion Gap 4.0 (3-11) BUN 34 H (7-18) mg/dl Creatinine 0.85 (0.6-1.4) mg/dl Est Cr Clr Drug Dosing 106.3 ml/min Est GFR ( Amer) 104.5 Est GFR (Non-Af Amer) 90.2 BUN/Creatinine Ratio 39.8 H (10-20) Glucose 106 H (70-99) mg/dl POC Glucose 114 H 109 H (70-99) mg/dl Calcium 8.3 L (8.5-10.1) mg/dl Phosphorus 3.3 (2.5-4.9) mg/dl Magnesium 2.4 (1.8-2.4) mg/dl Urine Color Urine Appearance (Clear) Urine pH (4.5-7.5) Ur Specific Goodrich (1.000-1.030) Urine Protein (Negative) Urine Glucose (UA) (Negative) Urine Ketones (Negative) Urine Blood (Negative) Urine Nitrite (Negative) Urine Bilirubin (Negative) Urine Urobilinogen (Negative) Ur Leukocyte Esterase (Negative) Urine WBC (Auto) (0-5) /hpf Urine RBC (Auto) (0-4) /hpf U Hyaline Cast (Auto) (0-5) /lpf U Epithel Cells (Auto) (0-5) /lpf Urine Bacteria (Auto) (Negative) Stl C. diff Tox B Gene 07/27/20 07/27/20 07/26/20 Range/Units 05:06 04:43 23:23 WBC 14.79 H (4.8-10.8) K/uL RBC 4.28 L (4.7-6.1) M/uL Hgb 13.2 L (14.0-18.0) g/dL Hct 40.5 L (42-52) % MCV 94.6 (80-100) fL MCH 30.8 (25-34) pg MCHC 32.6 (32-36) g/dL RDW Std Deviation 48.4 H (36.4-46.3) fL RDW Coeff of Fernanda 14.1 (11.5-14.5) % Plt Count 171 (130-400) K/uL MPV 10.2 (7.4-10.4) fL Immature Gran % (Auto) 0.6 % Neut % (Auto) 80.8 % Lymph % (Auto) 8.3 % Larimer % (Auto) 8.6 % Eos % (Auto) 1.6 % Baso % (Auto) 0.1 % Neut # (Auto) 11.96 H (1.4-6.5) K/uL Lymph # (Auto) 1.23 (1.2-3.4) K/uL [place] # (Auto) 1.27 H (0.11-0.59) K/uL Eos # (Auto) 0.23 (0-0.5) K/uL Baso # (Auto) 0.01 (0-0.2) K/uL Immature Gran # (Auto) 0.09 H (0.00-0.02) K/uL Sodium (136-145) mmol/L Potassium (3.5-5.1) mmol/L Chloride (98-107) mmol/L Carbon Dioxide (21-32) mmol/L Anion Gap (3-11) BUN (7-18) mg/dl Creatinine (0.6-1.4) mg/dl Est Cr Clr Drug Dosing ml/min Est GFR ( Amer) Est GFR (Non-Af Amer) BUN/Creatinine Ratio (10-20) Glucose (70-99) mg/dl POC Glucose 97 105 H (70-99) mg/dl Calcium (8.5-10.1) mg/dl Phosphorus (2.5-4.9) mg/dl Magnesium (1.8-2.4) mg/dl Urine Color Urine Appearance (Clear) Urine pH (4.5-7.5) Ur Specific Goodrich (1.000-1.030) Urine Protein (Negative) Urine Glucose (UA) (Negative) Urine Ketones (Negative) Urine Blood (Negative) Urine Nitrite (Negative) Urine Bilirubin (Negative) Urine Urobilinogen (Negative) Ur Leukocyte Esterase (Negative) Urine WBC (Auto) (0-5) /hpf Urine RBC (Auto) (0-4) /hpf U Hyaline Cast (Auto) (0-5) /lpf U Epithel Cells (Auto) (0-5) /lpf Urine Bacteria (Auto) (Negative) Stl C. diff Tox B Gene 07/26/20 Range/Units 19:45 WBC (4.8-10.8) K/uL RBC (4.7-6.1) M/uL Hgb (14.0-18.0) g/dL Hct (42-52) % MCV (80-100) fL MCH (25-34) pg MCHC (32-36) g/dL RDW Std Deviation (36.4-46.3) fL RDW Coeff of Fernanda (11.5-14.5) % Plt Count (130-400) K/uL MPV (7.4-10.4) fL Immature Gran % (Auto) % Neut % (Auto) % Lymph % (Auto) % [place] % (Auto) % Eos % (Auto) % Baso % (Auto) % Neut # (Auto) (1.4-6.5) K/uL Lymph # (Auto) (1.2-3.4) K/uL [place]imer # (Auto) (0.11-0.59) K/uL Eos # (Auto) (0-0.5) K/uL Baso # (Auto) (0-0.2) K/uL Immature Gran # (Auto) (0.00-0.02) K/uL Sodium (136-145) mmol/L Potassium (3.5-5.1) mmol/L Chloride (98-107) mmol/L Carbon Dioxide (21-32) mmol/L Anion Gap (3-11) BUN (7-18) mg/dl Creatinine (0.6-1.4) mg/dl Est Cr Clr Drug Dosing ml/min Est GFR ( Amer) Est GFR (Non-Af Amer) BUN/Creatinine Ratio (10-20) Glucose (70-99) mg/dl POC Glucose 159 H (70-99) mg/dl Calcium (8.5-10.1) mg/dl Phosphorus (2.5-4.9) mg/dl Magnesium (1.8-2.4) mg/dl Urine Color Urine Appearance (Clear) Urine pH (4.5-7.5) Ur Specific Goodrich (1.000-1.030) Urine Protein (Negative) Urine Glucose (UA) (Negative) Urine Ketones (Negative) Urine Blood (Negative) Urine Nitrite (Negative) Urine Bilirubin (Negative) Urine Urobilinogen (Negative) Ur Leukocyte Esterase (Negative) Urine WBC (Auto) (0-5) /hpf Urine RBC (Auto) (0-4) /hpf U Hyaline Cast (Auto) (0-5) /lpf U Epithel Cells (Auto) (0-5) /lpf Urine Bacteria (Auto) (Negative) Stl C. diff Tox B Gene PG Care Time/CCT Total # of Minutes Spent Total Time Spent with Patient: Total time spent is greater than 50% in coordination of care (as documented) at patient's floor/unit and/or counseling patient: Coding Level of Care Code 62601 Subseq Hosp Care Lvl 3 Diagnoses Pneumonia due to COVID-19 virus U07.1; J12.82 Acute hypoxemic respiratory failure J96.01 MRSA pneumonia J15.212 Fever R50.9 Sepsis A41.9 Acute kidney injury N17.9 Acute encephalopathy G93.40 Anxiety F41.9 Hypokalemia E87.6 Hypertension I10 CAD (coronary artery disease), [place] coronary artery I25.10 Hyperlipidemia E78.5 Diabetes mellitus type 2 in obese E11.69; E66.9 Junctional rhythm I49.8 DVT prophylaxis Z29.9
[2020-07-27 17:26] LABS: Appearance Urine Clear (Clear); Bacteria Urine Automated Negative (Negative); Bilirubin Urine Negative (Negative); Blood Urine Negative (Negative); Color Urine Dark Yellow; Glucose Urine UA Negative (Negative); Ketones Urine Negative (Negative); Leukocyte Esterase Urine Trace (Negative); Nitrite Urine Negative (Negative); Protein Urine Negative (Negative); RBC Urine Automated 0-4 /hpf (0-4); Specific Gravity Urine 1.025 (1.000-1.030); Urobilinogen Urine Positive (Negative)
[2020-07-27 20:48] LABS: Albumin Level 2.1 gm/dl (3.4-5.0); Bilirubin Direct 0.3 mg/dl (0-0.2); Bilirubin,Total 0.9 mg/dl (0.2-1); Total Protein 6.4 gm/dl (6.4-8.2)
[2020-07-28] MEDS: LINEZOLID 600 MG/300 ML BAG IV SCH ×3 (00:39→23:53)
[2020-07-28] MEDS ORDERED: INSULIN HUMAN NPH SC ONE (08:00)
[2020-07-28 09:00] LABS: Basophils # (auto) 0.01 K/uL (0-0.2); Basophils % (auto) 0.1 %; Eosinophils # (auto) 0.37 K/uL (0-0.5); Eosinophils % (auto) 3.8 %; Hematocrit (blood only) 41.5 % (42-52); Hemoglobin 13.6 g/dL (14.0-18.0); Immature Granulocytes # (auto) 0.09 K/uL (0.00-0.02); Immature Granulocytes % (auto) 0.9 %; Lymphocytes # (auto) 0.89 K/uL (1.2-3.4); Lymphocytes % (auto) 9.2 %; Mean Corpuscular Hemoglobin 31.2 pg (25-34); Mean Corpuscular Hgb Conc 32.8 g/dL (32-36); Mean Corpuscular Volume 95.2 fL (80-100); Monocytes % (auto) 7.3 %; Neutrophils # (auto) 7.57 K/uL (1.4-6.5); Neutrophils % (auto) 78.7 %; Platelet Count 139 K/uL (130-400); RDW Standard Deviation 48.5 fL (36.4-46.3); Red Blood Count 4.36 M/uL (4.7-6.1); White Blood Count 9.63 K/uL (4.8-10.8)
--- NOTE | 2020-07-28 09:20 | Pharmacy Report ---
Pharmacy Glycemic Short Note 2 - Date of Service July 28, 2020 - Glycemic Short BSG Results (Last 24 hours): OUTPATIENT ANTIDIABETIC REGIMEN: * n/a * A1c = 7.5% 07/20/20 ASSESSMENT: 07/28: * Mr. Herrera received a total of 40 units of insulin yesterday * 20 units basal + 20 units bolus * BSGs were well controlled: 15-337-54-122 mg/dL * Prednisone taper was started yesterday * Will continue with NPH coverage given with Prednisone * No changes to bolus insulin 07/27: * BSGs acceptable over last 24 hrs * Diet has been advanced, he is eating much better today than yesterday. Linezolid continues. * Patient had received Dexamethasone x 19 days, and will be started on Prednisone taper today. 40mg Prednisone given this AM * NPH added to cover effects of AM prednisone * Will lessen Novolog dosing parameters given decrease in steroid equivalence PLAN FOR INPATIENT GLYCEMIC CONTROL: * Basal insulin * NPH 20 units AM with Prednisone - If prednisone is held or discontinued, please call pharmacy and hold NPH dose * Bolus insulin * NovoLog per scale Q ACHS * Goal Range: Low 110 mg/dL - High 140 mg/dL * Correction Factor: 15 mg/dL/unit * Nutritional / Prandial insulin per carb ratio of 1 unit per 5 grams CHO consumed DISCHARGE RECOMMENDATIONS: * HbA1c = 7.5% which is above the goal range of less than 7% given this p atient's age and comorbidities. * Start metformin 500 mg ER once daily with dinner. Continue to titrate metformin dosing upwards as recommended. Dosage increases should be made in increments of 500 mg weekly, up to 2,000 mg/day PO, given in divided doses. Doses above 2000 mg/day may be better tolerated if divided and given 3 times per day with meals. Max: 2,550 mg/day PO, in divided doses. B12 supplementation may be necessary with terminal manager metformin.
[2020-07-28 09:31] LABS: Albumin Level 2.3 gm/dl (3.4-5.0); BUN Creatinine Ratio 36.2 (10-20); C Reactive Protein 0.73 mg/dl (0-0.29); Calcium 8.8 mg/dl (8.5-10.1); Creatinine Clr Calc Pharmacy 118.9 ml/min; Est GFR (African American) 109.4; Est GFR (Non-African American) 94.4; Magnesium 2.3 mg/dl (1.8-2.4); Potassium 3.7 mmol/L (3.5-5.1)
[2020-07-28 09:34] LABS: Albumin Globulin Ratio 0.5 (0.9-2); Bilirubin,Total 0.9 mg/dl (0.2-1); Globulin 4.4 gm/dl (2.5-4.0); Total Protein 6.7 gm/dl (6.4-8.2)
[2020-07-28] MEDS: METOPROLOL TARTRATE 25 MG TAB PO SCH ×2 (09:45→21:25)
[2020-07-28] MEDS: FUROSEMIDE 40 MG TAB PO SCH (09:46)
[2020-07-28] MEDS: ENOXAPARIN INJ 40 MG/0.4 ML SYR SQ SCH ×2 (09:46→21:25)
[2020-07-28] MEDS: TELMISARTAN 40 MG TAB PO SCH (09:46)
[2020-07-28] MEDS: predniSONE 10 MG TABLET PO SCH (09:47)
[2020-07-28] MEDS: PANTOprazole 40 MG TAB PO SCH (09:47)
[2020-07-28] MEDS: POLYETHYLENE (MIRALAX) 17 GM PACK PO SCH (09:48)
[2020-07-28] MEDS: ATORVASTATIN 40 MG TAB PO SCH (09:48)
[2020-07-28] MEDS: ASPIRIN 81 MG CHEW PO SCH (09:56)
[2020-07-28] MEDS: INSULIN ASPART 100 UNITS/ML 3 ML PEN SC SCH ×4 (09:56→21:25)
--- NOTE | 2020-07-28 12:23 | Pulmonology Progress Note ---
Date of Service July 28, 2020 Assessment & Plan (1) Acute hypoxemic respiratory failure: (2) Pneumonia due to COVID-19 virus: Patient was discussed in the multidisciplinary rounds. Impression: 65-year-old male with morbid obesity and ARDS secondary to COVID-19 pneumonia. He is failed conservative measures with oxygen and BiPAP and intubation mechanical ventilation were instituted --Acute hypoxic respiratory failure Secondary to multilobar COVID-19 pneumonia Sputum culture also grew MRSA, On linezolid, will complete total 10 days of it. Status post bronchoscopy on 07/20/2020. Sputum cultures growing MRSA. Taper steroids gradually Keep O2 saturation between 88-92% --Probable AGGIE/OHS Continue with CPAP nightly and as needed shortness of breath Plan: Continue with linezolid for total of 10 days for MRSA pneumonia Patient will benefit from incentive spirometry. Continue with tapering prednisone Recommend frequent reorientation. Video calls with family will be helpful Javier Lawrence [phone] Please note the above document was generated using voice recognition software. It may contain grammatical, syntax or spelling errors.Any formal questions or concerns about the content, text or information contained within the body of this dictation should be directly addressed to the provider for clarification. (3) Hypervolemia: (4) Morbid obesity due to excess calories: (5) Acute encephalopathy: (6) MRSA pneumonia: Admission and Anticipated Discharge Date Admission Date: July 08, 2020 Subjective Patient seen and examined at bedside. No acute distress, no adverse events overnight. Patient was on high flow 50 L, 50% saturating 91% Patient was answering questions appropriately. Denied any chest pain, no shortness of breath, no belly pain, no headache. Wanted to have sips of water which was provided to him by me. Patient was having loose bowel movements and he was on linezolid so CT was ordered yesterday which was negative. Patient does have bouts of delirium but he is reoriented very quickly. Review of Systems Review of Systems: All systems reviewed & are unremarkable except as noted in Subjective Physical Exam Physical Exam: Constitutional: No acute distress HEENT: EOMI, PERRLA Respiratory system: Decreased air entry bilaterally, no wheeze, no rhonchi, positive crackles bilateral lower lobes CVS: S1-S2 positive, no murmurs or gallops Abdomen: Soft, nontender, nondistended, positive bowel sounds x4, obese Extremities: +2 pulses bilaterally radialis/ dorsalis pedis, no cyanosis, no edema Neuro: Awake and alert, oriented to self, following simple commands Psych: Normal mood and affect G/U: No Alicia Skin: no rashes, warm and dry Lymphatic: no cervical or axillary lymphadenopathy Results & Data Results & Data ([facility]) Vital Signs (Past 12 Hours) Vital Signs Temp Pulse Pulse Resp BP BP Pulse Ox 07/28/20 11:33 78 21 95 07/28/20 11:22 37.0 C 81 21 149/107 H 95 07/28/20 08:00 100 H 07/28/20 07:48 37.0 C 92 H 18 166/106 H 89 L 07/28/20 07:47 106 H 22 93 07/28/20 04:22 36.9 C 98 H 20 163/71 H 93 07/28/20 03:07 100 H 21 93 07/28/20 08:45 07/28/20 08:45 PG Care Time/CCT Total # of Minutes Spent Total Time Spent with Patient: Total time spent is greater than 50% in coordination of care (as documented) at patient's floor/unit and/or counseling patient: Coding Level of Care Code 88565 Subseq Hosp Care Lvl 3 Diagnoses Acute hypoxemic respiratory failure J96.01 Pneumonia due to COVID-19 virus U07.1; J12.82 Hypervolemia E87.70 Morbid obesity due to excess calories E66.01 Acute encephalopathy G93.40 MRSA pneumonia J15.212
--- NOTE | 2020-07-28 15:25 | Hospitalist Progress Note ---
Date of Service July 28, 2020 Assessment & Plan (1) Pneumonia due to COVID-19 virus: Pneumonia due to COVID-19 He had a positive test 7 days [employer] at [employer] with no previous treatment. he got worse despite Vapotherm and BIPAP Chest x-ray and overall picture consistent with ARDS Transferred to ICU and was intubated on 07/11 Intubated x 14 days, EXTUBATED on 07/25 and remains on HFNC during day, continue BiPAP qhs-continue to wean down on high flow nasal cannula down to 45 L and 45% FiO2, pulse ox 90% now weaned off Precedex, off Fentanyl MRI brain negative on 07/23-performed for persistent encephalopathy which is likely ICU delirium Continued to have fevers for many days, but finally resolved on 07/28 - with MRSA PNA, was on Vanco and then switched to linezolid on 07/23-continue extended course through 08/02 Leukocytosis is now resolved Blood cultures 07/19-no growth BCxs 07/27-NGTD -downgraded out of ICU on 07/27 -continue pulm toilet -make Duonebs tid scheduled -continue out of bed to chair -plan for placement at LTACH once HFNC weaned down to 40L and FiO2 40% or less as per their requirements (2) Acute hypoxemic respiratory failure: As noted above severe ARDS, following ARDSnet protocol Now extubated as above after 14 days Improving, on HFNC as above and BiPAP at night (3) MRSA pneumonia: as above, finish out linezolid on 08/02 f/u CXR in AM (4) Fever: as above, persisting for many days thought is that perhaps these are still from his MRSA PNA not being adequately treated previously with IV Vanco, however has been on linezolid now for many days and fevers persisted Fevers finally resolved on 07/28 - C. difficile stool negative -UA negative for infection -repeat blood cultures on 07/27 NGTD -continue linezolid (5) Sepsis: Sepsis in setting of COVID-19 pneumonia, secondary MRSA pneumonia, with septic shock Now weaned off levophed on 07/15 fevers as above now resolving -Continue tx for MRSA PNA w/ linezolid -removed Alicia 07/25, central line removed 07/24 (6) Acute kidney injury: Creatinine 2.38 upon admission, with recent 1.36 [employer] Now resolved giving Lasix 40mg IV/po daily to keep lungs dry Follow CMP Follow urine output Alicia catheter removed 07/25 (7) Acute encephalopathy: likely secondary to ICU delirium, 2 weeks worth of IV Versed, fentanyl MRI brain normal Continues but slightly improved each day Supportive care, watch for withdrawal from benzodiazepines as he typically takes lorazepam 3 times a day at home prior to admission and was on Versed gtt x 2 weeks here Redirection Continue treatment of hypoxia and fevers MRSA pneumonia, work-up for fever as above (8) Anxiety: On lorazepam 1 mg 3 times daily at home Was on Versed, then Precedex for sedation, now off completely Watch for withdrawal -Consider adding on as needed lorazepam (9) Hypokalemia: K is stable Follow BMP in the setting of daily Lasix (10) Hypertension: BP now controlled-was high while weaning from vent Previously held home telmisartan/HCT for acute kidney injury, but have since restarted home telmisartan -continue metoprolol 25 mg po bid -Continue Lasix 40 mg p.o. once daily IV hydralazine as needed (11) CAD (coronary artery disease), [place] coronary artery: With a history of coronary stent Troponin minimally elevated and stable x2 most likely secondary to myocardial demand ischemia from profound hypoxia -continue aspirin 81 mg daily given presence of stent -continue statin -continue metoprolol tartrate for now but on Toprol 50 at home (12) Hyperlipidemia: Continue atorvastatin 80 mg every morning (13) Diabetes mellitus type 2 in obese: HgbA1C 7.5% here With hyperglycemia in setting of COVID/Sepsis and steroid use -continue insulin with NPH while on prednisone, SSI (14) Junctional rhythm: Noted on admitting ECG as well as intermittently on telemetry here in ICU Now resolved Likely secondary to critical illness Follow on tele (15) DVT prophylaxis: Lovenox 40 mg SQ every 12 GI prophylaxis- Protonix p.o. Disposition-continued stay PCU, PT/OT consulted, plan for LTACH on Thu- if HFNCat or < 40L and FiO2 at or <60% DNR but desires reintubation if needed Admission and Anticipated Discharge Date Admission Date: July 08, 2020 Subjective Pt remains confused but more conversational today. Knows he is in [facility] but when I ask him what town he is in, he states "2019." I asked if he talked to his today and he said "No, but I am looking forward to it!" Denies pain or SOB. Is OOB with peter lift to the chair today. No fevers today. Not eating much at all, had some applesauce as per RN. Tele with NSR, PACs, PVCs, bigem Review of Systems Review of Systems: All systems reviewed & are unremarkable except as noted in HPI & below Physical Exam Constitutional: WD/WN, vitals as above + obese; no acute distress Eyes: + anicteric sclerae ENMT: Nose: no external nose abnormality Neck: trachea midline, no thyromegaly Respiratory: normal respiratory effort (with HFNC in place) Auscultation: + crackles (In lower and middle lung muñoz bilaterally); no wheezes Cardiovascular: Rate/Rhythm: regular rate and regular rhythm Heart Sounds: no murmur Extremities: + edema (1+ pitting edema legs bilat) Chest (Breasts): Chest: normal inspection of chest Gastrointestinal (Abdomen): normal bowel sounds, soft, nontender, no hepatosplenomegaly Musculoskeletal: Extremities: extremities normal to inspection; no cyanosis and no clubbing Skin: no rashes, warm and dry Neurologic: moves all extremities and + confused; no focal motor deficits Motor/Sensory: no tremor Psychiatric: Orientation: oriented to person, oriented to place (location but not town or state) and cooperative; + not oriented to time Eye Contact: + poo r eye contact Speech: normal rate/rhythm/volume of speech Results & Data Results & Data ([facility]) Vital Signs (Past 12 Hours) Vital Signs Temp Pulse Pulse Resp BP BP Pulse Ox 07/28/20 11:33 78 21 95 07/28/20 11:22 37.0 C 81 21 149/107 H 95 07/28/20 08:00 100 H 07/28/20 07:48 37.0 C 92 H 18 166/106 H 89 L 07/28/20 07:47 106 H 22 93 07/28/20 04:22 36.9 C 98 H 20 163/71 H 93 Laboratory Results 07/28/20 07/28/20 07/28/20 Range/Units 21:21 16:06 11:20 WBC (4.8-10.8) K/uL RBC (4.7-6.1) M/uL Hgb (14.0-18.0) g/dL Hct (42-52) % MCV (80-100) fL MCH (25-34) pg MCHC (32-36) g/dL RDW Std Deviation (36.4-46.3) fL RDW Coeff of Fernanda (11.5-14.5) % Plt Count (130-400) K/uL MPV (7.4-10.4) fL Immature Gran % (Auto) % Neut % (Auto) % Lymph % (Auto) % Union % (Auto) % Eos % (Auto) % Baso % (Auto) % Neut # (Auto) (1.4-6.5) K/uL Lymph # (Auto) (1.2-3.4) K/uL Union # (Auto) (0.11-0.59) K/uL Eos # (Auto) (0-0.5) K/uL Baso # (Auto) (0-0.2) K/uL Immature Gran # (Auto) (0.00-0.02) K/uL Sodium (136-145) mmol/L Potassium (3.5-5.1) mmol/L Chloride (98-107) mmol/L Carbon Dioxide (21-32) mmol/L Anion Gap (3-11) BUN (7-18) mg/dl Creatinine (0.6-1.4) mg/dl Est Cr Clr Drug Dosing ml/min Est GFR ( Amer) Est GFR (Non-Af Amer) BUN/Creatinine Ratio (10-20) Glucose (70-99) mg/dl POC Glucose 98 143 H 123 H (70-99) mg/dl Calcium (8.5-10.1) mg/dl Magnesium (1.8-2.4) mg/dl Total Bilirubin (0.2-1) mg/dl AST (15-37) U/L ALT (12-78) U/L Alkaline Phosphatase (45-117) U/L C-Reactive Protein (0-0.29) mg/dl Total Protein (6.4-8.2) gm/dl Albumin (3.4-5.0) gm/dl Globulin (2.5-4.0) gm/dl Albumin/Globulin Ratio (0.9-2) Procalcitonin (0-0.5) ng/ml 07/28/20 07/28/20 07/28/20 Range/Units 08:45 08:45 08:45 WBC 9.63 (4.8-10.8) K/uL RBC 4.36 L (4.7-6.1) M/uL Hgb 13.6 L (14.0-18.0) g/dL Hct 41.5 L (42-52) % MCV 95.2 (80-100) fL MCH 31.2 (25-34) pg MCHC 32.8 (32-36) g/dL RDW Std Deviation 48.5 H (36.4-46.3) fL RDW Coeff of Fernanda 14.0 (11.5-14.5) % Plt Count 139 (130-400) K/uL MPV 10.0 (7.4-10.4) fL Immature Gran % (Auto) 0.9 % Neut % (Auto) 78.7 % Lymph % (Auto) 9.2 % Union % (Auto) 7.3 % Eos % (Auto) 3.8 % Baso % (Auto) 0.1 % Neut # (Auto) 7.57 H (1.4-6.5) K/uL Lymph # (Auto) 0.89 L (1.2-3.4) K/uL Union # (Auto) 0.70 H (0.11-0.59) K/uL Eos # (Auto) 0.37 (0-0.5) K/uL Baso # (Auto) 0.01 (0-0.2) K/uL Immature Gran # (Auto) 0.09 H (0.00-0.02) K/uL Sodium 141 (136-145) mmol/L Potassium 3.7 (3.5-5.1) mmol/L Chloride 107 (98-107) mmol/L Carbon Dioxide 29 (21-32) mmol/L Anion Gap 5.0 (3-11) BUN 27 H (7-18) mg/dl Creatinine 0.76 (0.6-1.4) mg/dl Est Cr Clr Drug Dosing 118.9 ml/min Est GFR ( Amer) 109.4 Est GFR (Non-Af Amer) 94.4 BUN/Creatinine Ratio 36.2 H (10-20) Glucose 104 H (70-99) mg/dl POC Glucose (70-99) mg/dl Calcium 8.8 (8.5-10.1) mg/dl Magnesium 2.3 (1.8-2.4) mg/dl Total Bilirubin 0.9 (0.2-1) mg/dl AST 57 H (15-37) U/L ALT 150 H (12-78) U/L Alkaline Phosphatase 42 L (45-117) U/L C-Reactive Protein 0.73 H (0-0.29) mg/dl Total Protein 6.7 (6.4-8.2) gm/dl Albumin 2.3 L (3.4-5.0) gm/dl Globulin 4.4 H (2.5-4.0) gm/dl Albumin/Globulin Ratio 0.5 L (0.9-2) Procalcitonin 0.06 (0-0.5) ng/ml 07/28/20 Range/Units 07:46 WBC (4.8-10.8) K/uL RBC (4.7-6.1) M/uL Hgb (14.0-18.0) g/dL Hct (42-52) % MCV (80-100) fL MCH (25-34) pg MCHC (32-36) g/dL RDW Std Deviation (36.4-46.3) fL RDW Coeff of Fernanda (11.5-14.5) % Plt Count (130-400) K/uL MPV (7.4-10.4) fL Immature Gran % (Auto) % Neut % (Auto) % Lymph % (Auto) % Union % (Auto) % Eos % (Auto) % Baso % (Auto) % Neut # (Auto) (1.4-6.5) K/uL Lymph # (Auto) (1.2-3.4) K/uL Union # (Auto) (0.11-0.59) K/uL Eos # (Auto) (0-0.5) K/uL Baso # (Auto) (0-0.2) K/uL Immature Gran # (Auto) (0.00-0.02) K/uL Sodium (136-145) mmol/L Potassium (3.5-5.1) mmol/L Chloride (98-107) mmol/L Carbon Dioxide (21-32) mmol/L Anion Gap (3-11) BUN (7-18) mg/dl Creatinine (0.6-1.4) mg/dl Est Cr Clr Drug Dosing ml/min Est GFR ( Amer) Est GFR (Non-Af Amer) BUN/Creatinine Ratio (10-20) Glucose (70-99) mg/dl POC Glucose 100 H (70-99) mg/dl Calcium (8.5-10.1) mg/dl Magnesium (1.8-2.4) mg/dl Total Bilirubin (0.2-1) mg/dl AST (15-37) U/L ALT (12-78) U/L Alkaline Phosphatase (45-117) U/L C-Reactive Protein (0-0.29) mg/dl Total Protein (6.4-8.2) gm/dl Albumin (3.4-5.0) gm/dl Globulin (2.5-4.0) gm/dl Albumin/Globulin Ratio (0.9-2) Procalcitonin (0-0.5) ng/ml PG Care Time/CCT Total # of Minutes Spent Total Time Spent with Patient: Total time spent is greater than 50% in coordination of care (as documented) at patient's floor/unit and/or counseling patient: Coding Level of Care Code 20195 Subseq Hosp Care Lvl 3 Diagnoses Pneumonia due to COVID-19 virus U07.1; J12.82 Acute hypoxemic respiratory failure J96.01 MRSA pneumonia J15.212 Fever R50.9 Sepsis A41.9 Acute kidney injury N17.9 Acute encephalopathy G93.40 Anxiety F41.9 Hypokalemia E87.6 Hypertension I10 CAD (coronary artery disease), [place] coronary artery I25.10 Hyperlipidemia E78.5 Diabetes mellitus type 2 in obese E11.69; E66.9 Junctional rhythm I49.8 DVT prophylaxis Z29.9
[2020-07-28] MEDS ORDERED: ACETAMINOPHEN 325 MG TAB PO PRN (22:43)
[2020-07-29 06:46] LABS: Basophils # (auto) 0.01 K/uL (0-0.2); Basophils % (auto) 0.1 %; Eosinophils # (auto) 0.36 K/uL (0-0.5); Eosinophils % (auto) 3.4 %; Hematocrit (blood only) 39.6 % (42-52); Hemoglobin 13.3 g/dL (14.0-18.0); Immature Granulocytes # (auto) 0.13 K/uL (0.00-0.02); Immature Granulocytes % (auto) 1.2 %; Lymphocytes # (auto) 1.04 K/uL (1.2-3.4); Lymphocytes % (auto) 9.9 %; Mean Corpuscular Hemoglobin 31.3 pg (25-34); Mean Corpuscular Hgb Conc 33.6 g/dL (32-36); Mean Corpuscular Volume 93.2 fL (80-100); Mean Platelet Volume 10.1 fL (7.4-10.4); Monocytes # (auto) 0.72 K/uL (0.11-0.59); Monocytes % (auto) 6.9 %; Neutrophils # (auto) 8.21 K/uL (1.4-6.5); Neutrophils % (auto) 78.5 %; Platelet Count 155 K/uL (130-400); RDW Coefficient of Variation 14.1 % (11.5-14.5); RDW Standard Deviation 47.6 fL (36.4-46.3); Red Blood Count 4.25 M/uL (4.7-6.1); White Blood Count 10.47 K/uL (4.8-10.8)
[2020-07-29] MEDS: ALBUT/IPRATROP 3MG/0.5MG NEB 3 ML VIAL NEB SCH ×3 (07:36→20:03)
[2020-07-29 07:58] LABS: Albumin Globulin Ratio 0.5 (0.9-2); Albumin Level 2.3 gm/dl (3.4-5.0); BUN Creatinine Ratio 33.4 (10-20); Bilirubin,Total 1.1 mg/dl (0.2-1); Calcium 8.8 mg/dl (8.5-10.1); Creatinine Clr Calc Pharmacy 120.6 ml/min; Est GFR (African American) 110.6; Est GFR (Non-African American) 95.4; Globulin 4.4 gm/dl (2.5-4.0); Phosphorus 2.3 mg/dl (2.5-4.9); Total Protein 6.7 gm/dl (6.4-8.2)
--- NOTE | 2020-07-29 08:01 | XRay Report ---
XR chest 1V portable CLINICAL HISTORY: f/u COVID PNA,hypoxia COMPARISON STUDY: Chest radiograph July 26, 2020. FINDINGS: Cardiomegaly is unchanged. Cardiomediastinal silhouette is stable. There is no pneumothorax or pleural effusion. Interstitial thickening multifocal bilateral airspace opacities are noted. Left lung airspace opacity. As mildly improved since exam of July 26, 2020. Right lung airspace opaci ties have slightly increased. Calcified left lung nodule is incidentally noted. IMPRESSION: Persistent bilateral airspace opacities which favor an infectious process. Slight improv ement in left lung airspace opacities with slight increase in right lung airspace opacity since prior chest radiograph. ACT 112: Negative or not required by law. Electronically signed by: Leoncio Bernardo M.D. 07/29/2020 8:00 AM
[2020-07-29 08:53] LABS: Potassium 3.3 mmol/L (3.5-5.1)
[2020-07-29 08:58] LABS: Magnesium 2.2 mg/dl (1.8-2.4)
[2020-07-29] MEDS: INSULIN ASPART 100 UNITS/ML 3 ML PEN SC SCH ×4 (09:26→23:54)
[2020-07-29] MEDS: POT PHOSPHATE MONOBASIC W/ SOD TAB PO SCH ×3 (09:33→17:37)
[2020-07-29] MEDS: METOPROLOL TARTRATE 25 MG TAB PO SCH (09:34)
[2020-07-29] MEDS: ENOXAPARIN INJ 40 MG/0.4 ML SYR SQ SCH (09:34)
[2020-07-29] MEDS: FUROSEMIDE 40 MG TAB PO SCH (09:34)
[2020-07-29] MEDS: ATORVASTATIN 40 MG TAB PO SCH (09:34)
[2020-07-29] MEDS: predniSONE 10 MG TABLET PO SCH (09:34)
[2020-07-29] MEDS: PANTOprazole 40 MG TAB PO SCH (09:35)
[2020-07-29] MEDS: TELMISARTAN 40 MG TAB PO SCH (09:35)
[2020-07-29] MEDS: POLYETHYLENE (MIRALAX) 17 GM PACK PO SCH (09:35)
--- NOTE | 2020-07-29 09:48 | Pharmacy Report ---
Pharmacy Glycemic Short Note 2 - Date of Service July 29, 2020 - Glycemic Short BSG Results (Last 24 hours): OUTPATIENT ANTIDIABETIC REGIMEN: * n/a * A1c = 7.5% 07/20/20 ASSESSMENT: 07/29: * Mr. Herrera received a total of 26 units of insulin yesterday * 20 units basal + 6 units bolus * BSGs were well controlled: 542-232-111-98 mg/dL * Appetite poor overall yesterday which accounts for decrease in total daily insulin use * Fasting BSG was well controlled at 94 mg/dL this morning * Will continue with 20 units of NPH while patient is receiving 40 mg of Prednisone * NPH dose may need adjusted as steroids are tapered off * Further loosened Novolog parameters with poor appetite 07/28: * Mr. Herrera received a total of 40 units of insulin yesterday * 20 units basal + 20 units bolus * BSGs were well controlled: 35-369-79-122 mg/dL * Prednisone taper was started yesterday * Will continue with NPH coverage given with Prednisone * No changes to bolus insulin PLAN FOR INPATIENT GLYCEMIC CONTROL: * Basal insulin * NPH 20 units AM with Prednisone - If prednisone is held or discontinued, please call pharmacy and hold NPH dose * Bolus insulin * NovoLog per scale Q ACHS * Goal Range: Low 110 mg/dL - High 140 mg/dL * Correction Factor: 20 mg/dL/unit * Nutritional / Prandial insulin per carb ratio of 1 unit per 7 grams CHO consumed DISCHARGE RECOMMENDATIONS: * HbA1c = 7.5% which is above the goal range of less than 7% given this patient's age and comorbidities. * Start metformin 500 mg ER once daily with dinner. Continue to titrate metformin dosing upwards as recommended. Dosage increases should be made in increments of 500 mg weekly, up to 2,000 mg/day PO, given in divided doses. Doses above 2000 mg/day may be better tolerated if divided and given 3 times per day with meals. Max: 2,550 mg/day PO, in divided doses. B12 supplementation may be necessary with head holder metformin.
[2020-07-29] MEDS: INSULIN HUMAN NPH SC SCH (09:52)
[2020-07-29] MEDS: ASPIRIN 81 MG CHEW PO SCH (09:55)
--- NOTE | 2020-07-29 13:09 | Pulmonology Progress Note ---
Date of Service July 29, 2020 Assessment & Plan (1) Acute hypoxemic respiratory failure: (2) Pneumonia due to COVID-19 virus: Patient was discussed in the multidisciplinary rounds. Impression: 65-year-old male with morbid obesity and ARDS secondary to COVID-19 pneumonia. He is failed conservative measures with oxygen and BiPAP and intubation mechanical ventilation were instituted --Acute hypoxic respiratory failure Secondary to multilobar COVID-19 pneumonia Sputum culture also grew MRSA, On linezolid, will complete total 10 days of it. Status post bronchoscopy on 07/20/2020. Sputum cultures growing MRSA. Taper steroids gradually Keep O2 saturation between 88-92% --Probable AGGIE/OHS Continue with CPAP nightly and as needed shortness of breath Plan: It is very imperative for patient to be on CPAP whenever he is asleep. Continue with linezolid for total of 10 days for MRSA pneumonia Patient will benefit from incentive spirometry. Continue with tapering prednisone Recommend frequent reorientation. Video calls with family will be helpful Continue aggressive PT OT No further recommendations from pulmonary perspective. Will follow peripherally. Call directly with any questions. Please note the above document was generated using voice recognition software. It may contain grammatical, syntax or spelling errors.Any formal questions or concerns about the content, text or information contained within the body of this dictation should be directly addressed to the provider for clarification. (3) Hypervolemia: (4) Morbid obesity due to excess calories: (5) Acute encephalopathy: (6) MRSA pneumonia: Admission and Anticipated Discharge Date Admission Date: July 08, 2020 Subjective Patient seen and examined at bedside. No acute distress. Overnight patient required 75% FiO2. At the time of examination patient was saturating 95% on 65% FiO2, 50 L high flow I went down to 60%. Patient is still delirious but answers questions appropriately. Follows commands. Denies any chest pain, no abdominal pain, no headache, no nausea vomiting. Is tolerating diet. Review of Systems Review of Systems: All systems reviewed & are unremarkable except as noted in Subjective Physical Exam Physical Exam: Constitutional: No acute distress HEENT: EOMI, PERRLA Respiratory system: Decreased air entry bilaterally, no wheeze, no rhonchi, positive crackles bilateral lower lobes CVS: S1-S2 positive, no murmurs or gallops Abdomen: Soft, nontender, nondistended, positive bowel sounds x4, obese Extremities: +2 pulses bilaterally radialis/ dorsalis pedis, no cyanosis, no edema Neuro: Awake and alert, oriented to self, following simple commands Psych: Normal mood and affect G/U: No Alicia Skin: no rashes, warm and dry Lymphatic: no cervical or axillary lymphadenopathy Results & Data Results & Data ([facility]) Vital Signs (Past 12 Hours) Vital Signs Temp Pulse Pulse Pulse Resp BP Pulse Ox 07/29/20 12:55 81 24 91 07/29/20 11:23 37.1 C 77 19 102/71 93 07/29/20 11:20 78 18 91 07/29/20 07:38 74 18 93 07/29/20 03:43 36.9 C 73 20 120/79 95 07/29/20 01:50 84 20 91 07/29/20 01:49 74 20 90 07/29/20 06:30 07/29/20 08:30 PG Care Time/CCT Total # of Minutes Spent Total Time Spent with Patient: Total time spent is greater than 50% in coordination of care (as documented) at patient's floor/unit and/or counseling patient: Coding Level of Care Code 22813 Subseq Hosp Care Lvl 3 Diagnoses Acute hypoxemic respiratory failure J96.01 Pneumonia due to COVID-19 virus U07.1; J12.82 Hypervolemia E87.70 Morbid obesity due to excess calories E66.01 Acute encephalopathy G93.40 MRSA pneumonia J15.212
[2020-07-29] MEDS: LINEZOLID 600 MG/300 ML BAG IV SCH (14:16)
--- NOTE | 2020-07-29 14:31 | Hospitalist Progress Note ---
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 he got worse despite Vapotherm and BIPAP Chest x-ray and overall picture consistent with ARDS Transferred to ICU and was intubated on 07/11 Intubated x 14 days, EXTUBATED on 07/25 and remains on HFNC during day, continue BiPAP qhs-continue to wean down on high flow nasal cannula down to 40 L and 55% FiO2, pulse ox 90% on 07/29 now weaned off Precedex, off Fentanyl MRI brain negative on 07/23-performed for persistent encephalopathy which is likely ICU delirium Continued to have fevers for many days, but finally resolved on 07/28 - with MRSA PNA, was on Vanco and then switched to linezolid on 07/23-continue extended course through 08/02 Leukocytosis is now resolved Blood cultures 07/19-no growth BCxs 07/27-06/02 with GPC in clusters, rapid fire neg for MRSA or Staph aureus PCR -downgraded out of ICU on 07/27 -continue pulm toilet -make Duonebs tid scheduled -continue out of bed to chair -plan for placement at LTACH once HFNC weaned down to 40L and FiO2 40% or less as per their requirements--> he is at those requirements now so if stable on this could dc Thursday (2) Acute hypoxemic respiratory failure: As noted above severe ARDS, followed ARDSnet protocol Now extubated as above after 14 days Improving, on HFNC as above and BiPAP at night (3) MRSA pneumonia: as above, finish out linezolid on 08/02 f/u CXR in AM (4) Fever: as above, persisting for many days, finally resolved as of 07/28 thought is that perhaps these are still from his MRSA PNA not being adequately treated previously with IV Vanco, however has been on linezolid now for many days and fevers persisted - C. difficile stool negative -UA negative for infection -repeat blood cultures on 07/27 06/02 with GPC in clusters, not SA or MRSA on rapid fire PCR, likely contaminant -continue linezolid (5) Sepsis: Sepsis in setting of COVID-19 pneumonia, secondary MRSA pneumonia, with septic shock now resolved Now weaned off levophed on 07/15 fevers as above now resolved -Continue tx for MRSA PNA w/ linezolid -removed Alicia 07/25, central line removed 07/24 (6) Acute kidney injury: Creatinine 2.38 upon admission, with recent 1.36 [employer] Now resolved giving Lasix 40mg po daily to keep lungs dry Follow CMP Follow urine output Alicia catheter removed 07/25 (7) Acute encephalopathy: likely secondary to ICU delirium, 2 weeks worth of IV Versed, fentanyl MRI brain normal Continues but slightly improved each day-only oriented to person and [facility], but not town/state, year/month/date Supportive care, watch for withdrawal from benzodiazepines as he typically takes lorazepam 3 times a day at home prior to admission and was on Versed gtt x 2 weeks here Redirection Continue treatment of hypoxia and fevers MRSA pneumonia, work-up for fever as above (8) Anxiety: On lorazepam 1 mg 3 times daily at home Was on Versed, then Precedex for sedation, now off completely Watch for withdrawal -Consider adding on as needed lorazepam but doesn't seem to need this now (9) Hypokalemia: K low again -replace with K-phos IV today Follow BMP in the setting of daily Lasix (10) Hypertension: BP now controlled-was high while weaning from vent Previously held home telmisartan/HCT for acute kidney injury, but have since restarted home telmisartan -continue metoprolol 25 mg po bid -Continue Lasix 40 mg p.o. once daily IV hydralazine as needed (11) CAD (coronary artery disease), [place] coronary artery: With a history of coronary stent Troponin minimally elevated and stable x2 most likely secondary to myocardial demand ischemia from profound hypoxia -continue aspirin 81 mg daily given presence of stent -continue statin -continue metoprolol tartrate for now but on Toprol 50 at home (12) Hyperlipidemia: Continue atorvastatin 80 mg every morning (13) Diabetes mellitus type 2 in obese: HgbA1C 7.5% here With hyperglycemia in setting of COVID/Sepsis and steroid use -continue insulin with NPH while on prednisone, SSI (14) Junctional rhythm: Noted on admitting ECG as well as intermittently on telemetry here in ICU Now resolved Likely secondary to critical illness Follow on tele (15) DVT prophylaxis: Lovenox 40 mg SQ every 12 GI prophylaxis- Protonix p.o. Disposition-continued stay PCU, PT/OT consulted, plan for LTACH on Thu- if HFNC at or < 40L and FiO2 at or <60% DNR but desires reintubation if needed Discussed care with daughter on phone Admission and Anticipated Discharge Date Admission Date: July 08, 2020 Subjective Pt remains confused but alert, sleeping in chair when I saw him. Only had BiPAP on for one hour last night. He is eating a bit more today, moving bowels. Denies pain. Denies SOB. Is weaned down to 55% FiO2 and 40L HFNC Tele with NSR, PACs, 70s Review of Systems Review of Systems: All systems reviewed & are unremarkable except as noted in HPI & below Physical Exam Constitutional: WD/WN, vitals as above + obese; no acute distress Eyes: + anicteric sclerae ENMT: Nose: no external nose abnormality Neck: trachea midline, no thyromegaly Respiratory: normal respiratory effort (with HFNC in place) Auscultation: no crackles and no wheezes Cardiovascular: RRR, no murmur, no edema Rate/Rhythm: regular rate and regular rhythm Heart Sounds: no murmur Chest (Breasts): Chest: normal inspection of chest Gastrointestinal (Abdomen): normal bowel sounds, soft, nontender, no hepatosplenomegaly Musculoskeletal: Extremities: extremities normal to inspection; no cyanosis and no clubbing Skin: no rashes, warm and dry Neurologic: moves all extremities; no focal motor deficits Motor/Sensory: no tremor Psychiatric: Orientation: oriented to person, oriented to place (location but not town or state) and cooperative; + not oriented to time Eye Contact: + poor eye contact Speech: normal rate/rhythm/volume of speech Lymphatic: no lymphedema Results & Data Results & Data ([facility]) Vital Signs (Past 12 Hours) Vital Signs Temp Pulse Pulse Resp BP Pulse Ox 07/29/20 12:55 81 24 91 07/29/20 11:23 37.1 C 77 19 102/71 93 07/29/20 11:20 78 18 91 07/29/20 07:38 74 18 93 07/29/20 03:43 36.9 C 73 20 120/79 95 Laboratory Results 07/29/20 07/29/20 07/29/20 Range/Units 11:19 08:30 07:18 WBC (4.8-10.8) K/uL RBC (4.7-6.1) M/uL Hgb (14.0-18.0) g/dL Hct (42-52) % MCV (80-100) fL MCH (25-34) pg MCHC (32-36) g/dL RDW Std Deviation (36.4-46.3) fL RDW Coeff of Fernanda (11.5-14.5) % Plt Count (130-400) K/uL MPV (7.4-10.4) fL Immature Gran % (Auto) % Neut % (Auto) % Lymph % (Auto) % [place] % (Auto) % Eos % (Auto) % Baso % (Auto) % Neut # (Auto) (1.4-6.5) K/uL Lymph # (Auto) (1.2-3.4) K/uL [place] # (Auto) (0.11-0.59) K/uL Eos # (Auto) (0-0.5) K/uL Baso # (Auto) (0-0.2) K/uL Immature Gran # (Auto) (0.00-0.02) K/uL Sodium (136-145) mmol/L Potassium 3.3 L (3.5-5.1) mmol/L Chloride (98-107) mmol/L Carbon Dioxide (21-32) mmol/L Anion Gap (3-11) BUN (7-18) mg/dl Creatinine (0.6-1.4) mg/dl Est Cr Clr Drug Dosing ml/min Est GFR ( Amer) Est GFR (Non-Af Amer) BUN/Creatinine Ratio (10-20) Glucose (70-99) mg/dl POC Glucose 118 H 94 (70-99) mg/dl Calcium (8.5-10.1) mg/dl Phosphorus (2.5-4.9) mg/dl Magnesium 2.2 (1.8-2.4) mg/dl Total Bilirubin (0.2-1) mg/dl AST 69 H (15-37) U/L ALT (12-78) U/L Alkaline Phosphatase (45-117) U/L Total Protein (6.4-8.2) gm/dl Albumin (3.4-5.0) gm/dl Globulin (2.5-4.0) gm/dl Albumin/Globulin Ratio (0.9-2) Bld Cult Staph aureus PCR (Negative) Blood Culture MRSA PCR (Negative) 07/29/20 07/29/20 07/28/20 Range/Units 06:30 06:30 21:21 WBC 10.47 (4.8-10.8) K/uL RBC 4.25 L (4.7-6.1) M/uL Hgb 13.3 L (14.0-18.0) g/dL Hct 39.6 L (42-52) % MCV 93.2 (80-100) fL MCH 31.3 (25-34) pg MCHC 33.6 (32-36) g/dL RDW Std Deviation 47.6 H (36.4-46.3) fL RDW Coeff of Fernanda 14.1 (11.5-14.5) % Plt Count 155 (130-400) K/uL MPV 10.1 (7.4-10.4) fL Immature Gran % (Auto) 1.2 % Neut % (Auto) 78.5 % Lymph % (Auto) 9.9 % [place] % (Auto) 6.9 % Eos % (Auto) 3.4 % Baso % (Auto) 0.1 % Neut # (Auto) 8.21 H (1.4-6.5) K/uL Lymph # (Auto) 1.04 L (1.2-3.4) K/uL [place] # (Auto) 0.72 H (0.11-0.59) K/uL Eos # (Auto) 0.36 (0-0.5) K/uL Baso # (Auto) 0.01 (0-0.2) K/uL Immature Gran # (Auto) 0.13 H (0.00-0.02) K/uL Sodium 138 (136-145) mmol/L Potassium (3.5-5.1) mmol/L Chloride 105 (98-107) mmol/L Carbon Dioxide 27 (21-32) mmol/L Anion Gap 7.0 (3-11) BUN 25 H (7-18) mg/dl Creatinine 0.74 (0.6-1.4) mg/dl Est Cr Clr Drug Dosing 120.6 ml/min Est GFR ( Amer) 110.6 Est GFR (Non-Af Amer) 95.4 BUN/Creatinine Ratio 33.4 H (10-20) Glucose 91 (70-99) mg/dl POC Glucose 98 (70-99) mg/dl Calcium 8.8 (8.5-10.1) mg/dl Phosphorus 2.3 L (2.5-4.9) mg/dl Magnesium (1.8-2.4) mg/dl Total Bilirubin 1.1 H (0.2-1) mg/dl AST (15-37) U/L ALT 161 H (12-78) U/L Alkaline Phosphatase 41 L (45-117) U/L Total Protein 6.7 (6.4-8.2) gm/dl Albumin 2.3 L (3.4-5.0) gm/dl Globulin 4.4 H (2.5-4.0) gm/dl Albumin/Globulin Ratio 0.5 L (0.9-2) Bld Cult Staph aureus PCR (Negative) Blood Culture MRSA PCR (Negative) 07/28/20 07/27/20 Range/Units 16:06 20:07 WBC (4.8-10.8) K/uL RBC (4.7-6.1) M/uL Hgb (14.0-18.0) g/dL Hct (42-52) % MCV (80-100) fL MCH (25-34) pg MCHC (32-36) g/dL RDW Std Deviation (36.4-46.3) fL RDW Coeff of Fernanda (11.5-14.5) % Plt Count (130-400) K/uL MPV (7.4-10.4) fL Immature Gran % (Auto) % Neut % (Auto) % Lymph % (Auto) % [place] % (Auto) % Eos % (Auto) % Baso % (Auto) % Neut # (Auto) (1.4-6.5) K/uL Lymph # (Auto) (1.2-3.4) K/uL [place] # (Auto) (0.11-0.59) K/uL Eos # (Auto) (0-0.5) K/uL Baso # (Auto) (0-0.2) K/uL Immature Gran # (Auto) (0.00-0.02) K/uL Sodium (136-145) mmol/L Potassium (3.5-5.1) mmol/L Chloride (98-107) mmol/L Carbon Dioxide (21-32) mmol/L Anion Gap (3-11) BUN (7-18) mg/dl Creatinine (0.6-1.4) mg/dl Est Cr Clr Drug Dosing ml/min Est GFR ( Amer) Est GFR (Non-Af Amer) BUN/Creatinine Ratio (10-20) Glucose (70-99) mg/dl POC Glucose 143 H (70-99) mg/dl Calcium (8.5-10.1) mg/dl Phosphorus (2.5-4.9) mg/dl Magnesium (1.8-2.4) mg/dl Total Bilirubin (0.2-1) mg/dl AST (15-37) U/L ALT (12-78) U/L Alkaline Phosphatase (45-117) U/L Total Protein (6.4-8.2) gm/dl Albumin (3.4-5.0) gm/dl Globulin (2.5-4.0) gm/dl Albumin/Globulin Ratio (0.9-2) Bld Cult Staph aureus PCR Negative (Negative) Blood Culture MRSA PCR Negative (Negative) PG Care Time/CCT Total # of Minutes Spent Total Time Spent with Patient: Total time spent is greater than 50% in coordination of care (as documented) at patient's floor/unit and/or counseling patient: Coding Level of Care Code 95602 Subseq Hosp Care Lvl 3 Diagnoses Pneumonia due to COVID-19 virus U07.1; J12.82 Acute hypoxemic respiratory failure J96.01 MRSA pneumonia J15.212 Fever R50.9 Sepsis A41.9 Acute kidney injury N17.9 Acute encephalopathy G93.40 Anxiety F41.9 Hypokalemia E87.6 Hypertension I10 CAD (coronary artery disease), [place] coronary artery I25.10 Hyperlipidemia E78.5 Diabetes mellitus type 2 in obese E11.69; E66.9 Junctional rhythm I49.8 DVT prophylaxis Z29.9
[2020-07-29] MEDS ORDERED: POTASSIUM PHOS 3 MMOL/1 ML INFUSION IV STA (14:38)
[2020-07-29] MEDS ORDERED: POTASSIUM PHOSPHATE 21 MMOL in SODIUM CHLORIDE 0.9% 500 ML IV ONE (15:00)
[2020-07-30] MEDS: ENOXAPARIN INJ 40 MG/0.4 ML SYR SQ SCH ×2 (00:01→08:54)
[2020-07-30] MEDS: METOPROLOL TARTRATE 25 MG TAB PO SCH ×2 (00:01→10:27)
[2020-07-30] MEDS: POT PHOSPHATE MONOBASIC W/ SOD TAB PO SCH ×3 (00:02→12:45)
[2020-07-30] MEDS: LINEZOLID 600 MG/300 ML BAG IV SCH ×2 (00:10→12:39)
[2020-07-30 07:16] LABS: Basophils # (auto) 0.01 K/uL (0-0.2); Basophils % (auto) 0.1 %; Eosinophils # (auto) 0.29 K/uL (0-0.5); Eosinophils % (auto) 2.7 %; Hematocrit (blood only) 38.5 % (42-52); Hemoglobin 12.9 g/dL (14.0-18.0); Immature Granulocytes % (auto) 0.9 %; Lymphocytes # (auto) 1.36 K/uL (1.2-3.4); Lymphocytes % (auto) 12.6 %; Mean Corpuscular Hgb Conc 33.5 g/dL (32-36); Mean Corpuscular Volume 92.5 fL (80-100); Monocytes # (auto) 0.76 K/uL (0.11-0.59); Monocytes % (auto) 7.1 %; Neutrophils # (auto) 8.24 K/uL (1.4-6.5); Neutrophils % (auto) 76.6 %; Platelet Count 164 K/uL (130-400); RDW Standard Deviation 46.8 fL (36.4-46.3); Red Blood Count 4.16 M/uL (4.7-6.1); White Blood Count 10.76 K/uL (4.8-10.8)
[2020-07-30 07:43] LABS: Albumin Level 2.3 gm/dl (3.4-5.0); BUN Creatinine Ratio 28.8 (10-20); Calcium 8.5 mg/dl (8.5-10.1); Creatinine Clr Calc Pharmacy 120.5 ml/min; Est GFR (Non-African American) 94.9; Potassium 3.1 mmol/L (3.5-5.1)
[2020-07-30 07:46] LABS: Albumin Globulin Ratio 0.6 (0.9-2); Globulin 4.1 gm/dl (2.5-4.0); Phosphorus 2.5 mg/dl (2.5-4.9); Total Protein 6.4 gm/dl (6.4-8.2)
[2020-07-30] MEDS: ALBUT/IPRATROP 3MG/0.5MG NEB 3 ML VIAL NEB SCH ×2 (07:47→13:11)
[2020-07-30] MEDS: INSULIN ASPART 100 UNITS/ML 3 ML PEN SC SCH ×2 (08:30→12:26)
[2020-07-30] MEDS: INSULIN HUMAN NPH SC SCH (08:30)
[2020-07-30] MEDS: FUROSEMIDE 40 MG TAB PO SCH (08:53)
[2020-07-30] MEDS: TELMISARTAN 40 MG TAB PO SCH (08:53)
[2020-07-30] MEDS: PANTOprazole 40 MG TAB PO SCH (08:53)
[2020-07-30] MEDS: ATORVASTATIN 40 MG TAB PO SCH (08:53)
[2020-07-30] MEDS: predniSONE 10 MG TABLET PO SCH (08:53)
[2020-07-30] MEDS: ASPIRIN 81 MG CHEW PO SCH (09:05)
[2020-07-30] MEDS: POLYETHYLENE (MIRALAX) 17 GM PACK PO SCH (09:05)
--- NOTE | 2020-07-30 12:56 | Discharge Summary ---
Date of Service July 30, 2020 Admission HPI Per Admitting Provider The patient is a 65-year-old male with a past medical history including hyperlipidemia, anxiety, hypertension, CAD, erectile dysfunction and arthritis who was diagnosed with COVID-19 infection 1 week ago at [facility]. Since that time he has become progressively more short of breath, more fatigued, generalized weakness and had decreased oral intake. He presented to the emergency department tonight due to the insistence of his family. Pulse ox in the emergency department was as low as 86% on room air, and initially improved with nasal cannula oxygen, which had to be titrated to oxy mask. Imaging studies: Chest x-ray showed cardiomegaly with pulmonary vascular congestion. Patchy peripheral predominant bilateral airspace opacities suspicious for viral pneumonia. Abnormal laboratories: AST 77, sodium 134, potassium 3.1, creatinine 2.38. In the emergency department patient received dexamethasone 6 mg IV, Tylenol 1 g p.o. and was started on normal saline 150 mils per hour. Principal Diagnosis COVID 19 pneumonia with acute hypoxia Discharge Exam Constitutional well developed and well nourished; no acute distress Neck trachea midline, no thyromegaly + thick neck Respiratory normal respiratory effort; no respiratory distress Auscultation: lungs clear to auscultation bilaterally Cardiovascular RRR, no murmur, no edema Gastrointestinal (Abdomen) normal bowel sounds, soft, nontender, no hepatosplenomegaly Musculoskeletal Head/Neck/Chest: normocephalic, head atraumatic and neck supple Extremities: extremities normal to inspection; no cyanosis, no clubbing and no petechiae Skin no rashes, warm and dry Neurologic CN's II-XI intact bilaterally and + obtunded; no focal motor deficits Psychiatric Orientation: alert and oriented x 3 Affect: + anxious affect Discharge Data Allergies Allergy/AdvReac Type Severity Reaction Status Date / Time ciprofloxacin Allergy Intermediate RASH, Verified 07/08/20 19:40 VISION TUNNLED, VERTIGO, NO TASTE cimetidine Allergy Mild DIAPHORESIS Verified 07/08/20 19:40 cantaloupe Allergy Rash Verified 07/27/20 17:52 melon Allergy Rash Verified 07/27/20 17:52 Consultations 07/08/20 19:51 ED Decision to Admit Stat 07/08/20 23:11 Consult Case Management - Discharge Planning Routine 07/11/20 10:36 Consult Metalworking Instructor Stat Ordered Studies 07/21/20 08:43 CT head/brain wo con Stat 07/23/20 14:21 MR brain wo con Routine Diabetes Follow up Diabetes Follow-up Needed for Newly Diagnosed Diabetes Hospital Course (1) Pneumonia due to COVID-19 virus: Pneumonia due to COVID-19 He had a positive test 7 days [employer] at [employer] with no previous treatment. he got worse despite Vapotherm and BIPAP Chest x-ray and overall picture consistent with ARDS Transferred to ICU and was intubated on 07/11 Intubated x 14 days, EXTUBATED on 07/25 and remains on HFNC during day, continue BiPAP qhs-continue to wean down on high flow nasal cannula down to 40 L and 55% FiO2, pulse ox 90% on 07/29 now weaned off Precedex, off Fentanyl MRI brain negative on 07/23-performed for persistent encephalopathy which is likely ICU delirium Continued to have fevers for many days, but finally resolved on 07/28 - with MRSA PNA, was on Vanco and then switched to linezolid on 07/23-continue extended course through 08/02 Leukocytosis is now resolved Blood cultures 07/19-no growth BCxs 07/27-06/02 with GPC in clusters, rapid fire neg for MRSA or Staph aureus PCR -downgraded out of ICU on 07/27 -continue pulm toilet -make Duonebs tid scheduled -continue out of bed to chair -plan for placement at LTACH today (2) Acute hypoxemic respiratory failure: As noted above severe ARDS, followed ARDSnet protocol Now extubated as above after 14 days Improving, on HFNC as above and BiPAP at night (3) MRSA pneumonia: as above, finish out linezolid on 08/02 f/u CXR in AM (4) Fever: as above, persisting for many days, finally resolved as of 07/28 thought is that perhaps these are still from his MRSA PNA not being adequately treated previously with IV Vanco, however has been on linezolid now for many days and fevers persisted - C. 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 Now resolved giving Lasix 40mg po daily to keep lungs dry Follow CMP Follow urine output Alicia catheter removed 07/25 (7) Acute encephalopathy: likely secondary to ICU delirium, 2 weeks worth of IV Versed, fentanyl MRI brain normal Continues but slightly improved each day-only oriented to person and [facility], but not town/state, year/month/date Supportive care, watch for withdrawal from benzodiazepines as he typically takes lorazepam 3 times a day at home prior to admission and was on Versed gtt x 2 weeks here Redirection Continue treatment of hypoxia and fevers MRSA pneumonia, work-up for fever as above (8) Anxiety: On lorazepam 1 mg 3 times daily at home Was on Versed, then Precedex for sedation, now off completely Watch for withdrawal -Consider adding on as needed lorazepam but doesn't seem to need this now (9) Hypokalemia: K low again -replace with K-phos IV today Follow BMP in the setting of daily Lasix (10) Hypertension: BP now controlled-was high while weaning from vent Previously held home telmisartan/HCT for acute kidney injury, but have since restarted home telmisartan -continue metoprolol 25 mg po bid -Continue Lasix 40 mg p.o. once daily IV hydralazine as needed (11) CAD (coronary artery disease), [place] coronary artery: With a history of coronary stent Troponin minimally elevated and stable x2 most likely secondary to myocardial demand ischemia from profound hypoxia -continue aspirin 81 mg daily given presence of stent -continue statin -continue metoprolol tartrate for now but on Toprol 50 at home (12) Hyperlipidemia: Continue atorvastatin 80 mg every morning (13) Diabetes mellitus type 2 in obese: HgbA1C 7.5% here With hyperglycemia in setting of COVID/Sepsis and steroid use -continue insulin with NPH while on prednisone, SSI (14) Junctional rhythm: Noted on admitting ECG as well as intermittently on telemetry here in ICU Now resolved Likely secondary to critical illness Follow on tele (15) DVT prophylaxis: Lovenox 40 mg SQ every 12 GI prophylaxis- Protonix p.o. Disposition-continued stay PCU, PT/OT consulted, plan for LTACH on Mon-Tu if HFNC at or < 40L and FiO2 at or <60% DNR but desires reintubation if needed Discussed care with daughter on phone Total Time Total Time Spent Total Time Spent (In Minutes): 31 minutes Total Time Includes: Examination of the Patient, Discharge Planning and Medication Reconciliation Discharge Plan Discharge Items Patient Disposition: Trans Resident Long-Term Care Reason For Visit: COVID 19 PNEUMONIA WITH HYPOXIA Discharge Diagnosis: COVID 19 pneumonia with hypoxemia Condition on Discharge: Fair Goals: titrate off high flow oxygen improve strength and mobility Activity: Resume your previous activity Weightbearing: Full weightbearing Non-emergency contact: Primary Care Provider Call non-emergency contact if: you have any medication questions Follow-up/Referrals: PCP,NO [Primary Care Provider] - Diet: Carb Consistent or DM2 and Heart Healthy Addtl Attending Provider Instructions: see discharge summary Pending Studies at Discharge: No Stand-Alone Forms: [facility] Skilled Items Patient informed of condition?: Yes DNR: Yes Discharge Level of Care: Other Communicable Disease: Yes Discharge Prognosis: Stable Lines: Peripheral IV Urinary Catheter: No Medications and DC Order Prescriptions: New furosemide 40 mg Tablet 40 mg PO QAM 10 Days Qty: 10 RF: 0 prednisone 10 mg Tablet 40 mg PO DAILY 10 Days Qty: 40 RF: 0 ipratropium-albuterol 0.5 mg-3 mg(2.5 mg base)/3 mL Solution For Nebulization 3 ml NEB TIDR Qty: 15 RF: 0 polyethylene glycol 3350 [Miralax] 17 gram Powder In Packet 17 g PO QAM Qty: 30 RF: 0 pantoprazole 40 mg Tablet,Delayed Release (Dr/Ec) 40 mg PO QAM Qty: 30 RF: 0 telmisartan 40 mg Tablet 40 mg PO QAM Qty: 30 RF: 0 Novolin N NPH U-100 Insulin 100 unit/mL Suspension 20 unit SC DAILY Qty: 10 RF: 0 Phospha 250 Neutral 250 mg Tablet 1 tab PO QID Qty: 90 RF: 0 enoxaparin 40 mg/0.4 mL Syringe 40 mg subcut Q12 Qty: 4 RF: 0 insulin aspart U-100 [Novolog Flexpen U-100 Insulin] 100 unit/mL (3 mL) Insulin Pen 1 unit SC ACHS Qty: 15 RF: 0 metoprolol tartrate 25 mg Tablet 25 mg PO BID Qty: 60 RF: 0 Continued atorvastatin 80 mg tablet 80 mg PO QAM Qty: 90 RF: 3 aspirin 81 mg tablet,delayed release (DR/EC) 81 mg PO QAM RF: 0 lorazepam 1 mg tablet 1 mg PO TID PRN (Reason: Anxiety) RF: 0 Discontinued metoprolol succinate 50 mg tablet extended release 24 hr 50 mg PO QAM Qty: 90 RF: 3 nitroglycerin 0.4 mg tablet, sublingual 0.4 mg SL Q5M PRN (Reason: chest pain) Qty: 25 RF: 0 telmisartan-hydrochlorothiazid 80-25 mg tablet 1 tab PO QAM Qty: 90 RF: 3 sildenafil (pulm.hypertension) 20 mg tablet 20 mg PO DAILY PRN (Reason: Erectile Dysfunction) RF: 0 acetaminophen 500 mg tablet 500 mg PO UD PRN (Reason: Pain) RF: 0 diclofenac sodium 75 mg tablet,delayed release (DR/EC) 75 mg PO BID RF: 0 Discharge Orders: Discharge Order (Routine); Ordered 07/30/20 Ordered By: Boaz Jorge/Other Patient Handouts: Managing Type 2 Diabetes, 5 Steps for Eating Healthier, Understanding Type 2 Diabetes, A1C Admission Data Admit Date/Time: 07/08/20 21:04 Attending Provider: Boaz Cortez Admit Provider: Albert Moya Primary Care Provider: PCP,NO Other Providers: [facility] [place] ; [facility] ; Albert Moya ; Mayur Roth Other Interventions: Discharge Summary Assessment (RN) Last Done: 07/30/20 12:28 Coding Level of Care Code D/C Day Management >30 mins Diagnoses Pneumonia due to COVID-19 virus U07.1; J12.82 Acute hypoxemic respiratory failure J96.01 MRSA pneumonia J15.212 Fever R50.9 Sepsis A41.9 Acute kidney injury N17.9 Acute encephalopathy G93.40 Anxiety F41.9 Hypokalemia E87.6 Hypertension I10 CAD (coronary artery disease), [place] coronary artery I25.10 Hyperlipidemia E78.5 Diabetes mellitus type 2 in obese E11.69; E66.9 Junctional rhythm I49.8 DVT prophylaxis Z29.9
== END 2020-07-30 16:07 | DRG 870 ==
LOC: ED 17:18 → 2E 21:04 → SUATTDRO 21:04 → 2E 23:15 → 1E 07-11 10:54 → 2E 07-27 15:39

== ENCOUNTER 2023-12-06 12:16 | Inpatient (IN) ==
[2023-12-06 13:10] LABS: Basophils # (auto) 0.05 K/uL (0.00-0.20); Basophils % (auto) 0.6 %; Eosinophils # (auto) 0.22 K/uL (0.00-0.50); Eosinophils % (auto) 2.7 %; Hematocrit (blood only) 39.3 % (42.0-52.0); Hemoglobin 13.6 g/dl (14.0-18.0); Immature Granulocytes # (auto) 0.09 K/uL (0.01-0.20); Immature Granulocytes % (auto) 1.1 %; Lymphocytes # (auto) 1.63 K/uL (1.20-3.40); Lymphocytes % (auto) 20.1 %; Mean Corpuscular Hemoglobin 31.6 pg (25.0-34.0); Mean Corpuscular Hgb Conc 34.6 g/dL (32.0-36.0); Mean Corpuscular Volume 91.2 fL (80.0-100.0); Mean Platelet Volume 12.2 fL (9.4-12.4); Monocytes # (auto) 0.93 K/uL (0.11-0.59); Monocytes % (auto) 11.5 %; Platelet Count 136 K/uL (130-400); RDW Coefficient of Variation 14.1 % (11.5-14.5); RDW Standard Deviation 47.4 fL (36.4-46.3); Red Blood Count 4.31 M/uL (4.70-6.10); White Blood Count 8.12 K/ul (4.8-10.8)
[2023-12-06 13:24] LABS: Albumin Globulin Ratio 1.3 (0.9-2); BUN Creatinine Ratio 21.7 (10-20); Bilirubin Direct 0.3 mg/dl (0-0.2); Bilirubin,Total 1.2 mg/dl (0.2-1.0); Calcium 9.2 mg/dl (8.6-10.3); Creatinine Clr Calc Pharmacy 38.3 ml/min; Est GFR (African American) 40.8 ml/min; Est GFR (Non-African American) 35.2 ml/min; Globulin 3.2 gm/dl (2.5-4.0); Potassium 4.1 mmol/L (3.5-5.1); Total Protein 7.2 gm/dl (6.0-8.3)
--- NOTE | 2023-12-06 13:24 | Emergency Department Note ---
History of Present Illness General Chief complaint: Wound Stated complaint: WOUND ON BUTTOCKS Time Seen by Provider: 12/06/23 12:24 History of Present Illness Maximum Pain Intensity: 2 This 68-year-old male presents today with his , for evaluation of wounds on his buttocks. The patient states he has had open wounds on his buttocks for 2-3 weeks. He has seen his PCP and was treated with doxycycline and Bactroban ointment. He states the wounds have not improved. They have not become worse either. He is having difficulty sitting and moving secondary to pain. He states he recently had a long airplane ride which required him to sit for an extended period of time. He is wondering if this made the wounds worse. He states the doxycycline made him nauseated, and he was only able to take approximately half of the prescription. He thinks the nausea and vomiting were exacerbated by previously taking Ozempic. He has been off of it for 4 weeks. He states he has lost 110 pounds. His notes he does not have an appetite and has not eaten much over the last week. The patient denies any constipation. He states he has been moving his bowels. He denies any fevers or chills. No sweats. No additional complaints. Home Medications Medication Instructions Recorded Confirmed Type aspirin 81 mg tablet,delayed 81 mg PO QAM 01/21/19 12/06/23 History release lorazepam 1 mg tablet 1 mg PO TID PRN Anxiety 03/22/20 12/06/23 History losartan 50 mg tablet 50 mg PO QAM 10/03/21 12/06/23 History albuterol sulfate 90 mcg/actuation 2 puff inhalation Q6H PRN 12/11/22 12/06/23 Rx aerosol inhaler Shortness Of Breath Or Wheezing #18 grams atorvastatin 80 mg tablet (Lipitor) 80 mg PO QAM 02/09/23 12/06/23 History Portable Oxygen #1 ea 02/11/23 12/06/23 Rx mupirocin 2 % topical ointment 1 applic topical BID #50 grams 11/21/23 12/06/23 Rx ondansetron 4 mg disintegrating 4 mg PO Q6H PRN nausea and 11/26/23 12/06/23 Rx tablet vomiting #20 tabs acetaminophen 500 mg tablet 500 mg PO QID PRN Pain 12/04/23 12/06/23 History bumetanide 1 mg tablet 1 mg PO . ON HOLD 12/04/23 12/06/23 History diclofenac sodium 75 mg 75 mg PO QAM 12/04/23 12/06/23 History tablet,delayed release isosorbide mononitrate 30 mg 15 mg PO .ON HOLD 12/04/23 12/06/23 History tablet,extended release 24 hr metoprolol succinate 25 mg 25 mg PO QAM 12/04/23 12/06/23 History tablet,extended release 24 hr potassium chloride 20 mEq 20 meq PO .ON HOLD 12/04/23 12/06/23 History tablet,extended release sertraline 25 mg tablet 25 mg PO PM 12/04/23 12/06/23 History amoxicillin 875 mg tablet 875 mg PO Q12H #10 tabs 12/08/23 Rx lactobacillus combination no.4 3 3,000 mmu cells PO DAILY #5 caps 12/08/23 Rx billion cell capsule (Probiotic) pantoprazole 40 mg tablet,delayed 40 mg PO BID #60 tabs 12/08/23 Rx release (Protonix) sulfamethoxazole 800 1 tab PO BID #10 tabs 12/08/23 Rx mg-trimethoprim 160 mg tablet (Bactrim DS) Allergies Allergy/AdvReac Type Severity Reaction Status Date / Time ciprofloxacin Allergy Intermediate Rash, Verified 12/04/23 08:06 tunnel vision, loss of taste cimetidine Allergy Mild Diaphoresis Verified 12/04/23 08:06 cantaloupe Allergy Unknown Rash Verified 12/04/23 08:06 melon Allergy Unknown Rash Verified 12/04/23 08:06 Past Med/Surg History Problem List (Updated 12/08/23 @ 22:18 by Justen oRque PA-C) Hypomagnesemia Wound of right buttock Dyspepsia Dyslipidemia High anion gap metabolic acidosis Elevated lipase (Acute) Intractable vomiting Pulmonary hypertension Demand ischemia of myocardium Acute postoperative pulmonary insufficiency Morbid obesity with BMI of 45.0-49.9, adult Acute on chronic diastolic CHF (congestive heart failure) Alicia catheter in place Acute respiratory acidosis Pulmonary edema (HFpEF) heart failure with preserved ejection fraction Acute and chronic respiratory failure with hypoxia Complex renal cyst Left nephrolithiasis Recurrent UTI Chronic respiratory failure with hypoxia Follows with Dr Dias Recent PFT 12/[address] Ex-smoker Exertional shortness of breath Hypersomnia Restrictive lung disease Pre-op chest exam Junctional rhythm Diabetes mellitus type 2 in obese MRSA pneumonia hx- states 2020, while had covid Acute encephalopathy Acute encephalopathy Morbid obesity due to excess calories Hypervolemia Acute hypoxemic respiratory failure DVT prophylaxis Elevated troponin (Acute) CAD (coronary artery disease), chicken ranch coronary artery stent x1 (2006)- 2 attempts at [facility] > transferred to [facility] for stent placement Hypoxia (Acute) Pneumonia due to COVID-19 virus (Acute) S/P total hip arthroplasty Localized osteoarthrosis of right hip Encounter for pre-operative examination History of skin cancer Hiatal hernia Osteoarthritis Hypertension Hyperlipidemia Diverticulitis (Acute) Abdominal pain (Acute) Medical History Neuropathy left hand Osteoarthritis Hyperlipidemia Hypertension Diverticular disease Hiatal hernia CAD (coronary artery disease) Hx MRSA infection 2020 > when had covid, and at present from recent wound culture 10/2023 Diabetes mellitus, type 2 diet controlled, hx of Ozempic use, no longer Restrictive lung disease per pt, had recent lung function test and is all looking much better, rare res inh use Hx of recurrent urinary tract infection none at present CHF (congestive heart failure) concerned with fluid overload during surgery, happened with lithotripsy, plans to discuss at pre op. History of kidney stones On home oxygen therapy 1-2 lpm via [place] prn > rare use per pt > lung functioning improving per pt History of claustrophobia History of COVID-19 07/2020 > hospitalized, ventilator support x10 days at [facility]- Covid MRSA PNA Morbid obesity Anxiety History of heart attack 2006 Surgical History History of lithotripsy Hx of decompression of ulnar nerve Left ulnar nerve decompression (10/24/21): LMA#5 at [facility] S/P hip replacement right History of cardiac cath 03/2023 > [facility] > no stents stent x1 (2006)- 2 attempts at [facility] > transferred to [facility] for stent placement History of colonoscopy History of tooth extraction History of arthroscopy of left knee History of arthroscopy of right knee History of tonsillectomy History of skin cancer resection Family History Sister Family history of breast cancer Father Family history of leukemia Other Family history of skin cancer Social History Smoking Status: Former smoker Tobacco Type: Cigarettes and Cigars Age Started Using Tobacco: 14; Age Quit Using Tobacco: 51; packs per day: 0.5; Cigarettes Per Day: ~1/2 PPD x 25 YEARS; Second Hand Exposure: No; Do You Dip or Chew Tobacco: No; Hx Alcohol Use: Yes Alcohol type: hard liquor Hx Substance Use: No Preferred Language: Swedish Communication Ability: Effective Online Marketing Director Required: No Beliefs That Will Affect Care: None marital status: Current Living Situation: Spouse Feels Safe at Home: Yes Assistive Devices: Walker Review of Systems A total of 10 systems reviewed and were otherwise negative Physical Exam Vital Signs Vital Signs - 24 hr 12/06/23 12:16 12/06/23 12:18 12/06/23 13:13 Temperature 36.1 C L Temperature Source Temporal Artery Scan Pulse Rate 67 64 Pulse Rate [Apical] 66 Respiratory Rate 16 18 Blood Pressure 114/79 Blood Pressure [Left Arm] 100/64 Blood Pressure Mean 90 Blood Pressure Mean [Left Arm] 76 Pulse Oximetry 95 97 Oxygen Delivery Method Room Air Room Air Sepsis Recent Fever Within 48 Hours No Sepsis New/Unexplained Change in Mental Status No Sepsis Action Taken by Nursing No Action Required General: Well-developed, well-nourished, elderly male, in no acute distress. Sitting in a chair. Alert and oriented. Skin: Warm and dry with good turgor. No rashes. He has 2 round excoriations present on the left buttock near the gluteal cleft. They are approximately 6 mm in diameter. There is a solitary round excoriation on the right buttock that is approximately 18 mm in diameter. No bloody drainage. No purulence. No weeping at this time. Bases are erythemic. They are relatively shallow. Heart: Heart RRR. No MGR. Peripheral pulses are 2+. Lungs: Lungs are clear to auscultation. No crackles rhonchi or wheezing. Good air movement. The patient is able to take a deep breath. Abdomen: Abdomen was inspected, auscultated, and palpated. Bowel sounds present x 4. Soft, nontender to palpation. No hepato-splenomegaly. No masses noted. No rebound, negative Sanchez sign. No pain over McBurney's point. No CVA tenderness. Musculoskeletal: Gross motor function of the upper and lower extremities is intact and unremarkable. He has limited motion of the left hip secondary to pain. He has known DJD. Course Administered Medications Discontinued Medications Acetaminophen (Acetaminophen 325 Mg Tab) 650 mg PO Q4 PRN PRN Reason: Pain Stop: 01/05/24 20:34 Last Admin: 12/07/23 21:17 Dose: 650 mg Documented By: LEONARD Aspirin (Aspirin 81 Mg Ectab) 81 mg PO QAM [facility] Stop: 01/06/24 08:59 Last Admin: 12/08/23 08:14 Dose: 81 mg Documented By: Admin: 12/07/23 08:00 Dose: 81 mg Documented By: PAUL Heparin Sodium (Porcine) (Heparin Sod 5,000 Unit/0.5 Ml Vial) 5,000 units SQ Q8 [facility] Stop: 01/05/24 21:59 Last Admin: 12/08/23 05:56 Dose: 5,000 units Documented By: Admin: 12/07/23 21:11 Dose: 5,000 units Documented By: Admin: 12/07/23 14:25 Dose: 5,000 units Documented By: Admin: 12/07/23 06:19 Dose: 5,000 units Documented By: Admin: 12/06/23 21:06 Dose: 5,000 units Documented By: LEONARD Sodium Chloride (Nss) 1,000 mls @ 125 mls/hr IV .Q8H [facility] Stop: 01/05/24 14:44 Last Admin: 12/08/23 05:56 Dose: 125 mls/hr Documented By: Infusion: 12/08/23 05:56 Dose: Infused Documented By: Admin: 12/07/23 22:26 Dose: 125 mls/hr Documented By: Infusion: 12/07/23 22:24 Dose: Infused Documented By: Admin: 12/07/23 14:24 Dose: 125 mls/hr Documented By: Infusion: 12/07/23 14:18 Dose: Infused Documented By: Admin: 12/07/23 06:18 Dose: 125 mls/hr Documented By: Infusion: 12/07/23 06:18 Dose: Infused Documented By: Admin: 12/06/23 22:47 Dose: 125 mls/hr Documented By: Infusion: 12/06/23 22:47 Dose: Infused Documented By: Admin: 12/06/23 14:47 Dose: 125 mls/hr Documented By: LUCRECIA Daptomycin 300 mg/ Syringe 6 mls @ 3 mls/min IV Q24H [facility]; Protocol Stop: 12/13/23 16:59 Last Admin: 12/07/23 17:31 Dose: 3 mls/min Documented By: Admin: 12/06/23 17:13 Dose: 3 mls/min Documented By: DESMOND Magnesium Sulfate/Dextrose (Magnesium Sulfate / D5w) 1 gm in 100 mls @ 50 mls/hr IV Q2H [facility] Stop: 12/07/23 12:44 Last Infusion: 12/07/23 12:53 Dose: Infused Documented By: Admin: 12/07/23 10:41 Dose: 50 mls/hr Documented By: Infusion: 12/07/23 10:41 Dose: Infused Documented By: Admin: 12/07/23 08:53 Dose: 50 mls/hr Documented By: PAUL Insulin Aspart (Insulin Aspart Per Unit Charge) 0 units SC [facility] Stop: 01/05/24 20:59 Last Admin: 12/08/23 08:15 Dose: Not Given Documented By: Admin: 12/07/23 20:33 Dose: Not Given Documented By: LEONARD Co-signed By: PALLAVI Admin: 12/07/23 17:25 Dose: Not Given Documented By: Admin: 12/07/23 12:54 Dose: Not Given Documented By: Admin: 12/07/23 07:59 Dose: Not Given Documented By: Admin: 12/06/23 21:58 Dose: Not Given Documented By: LEONARD Co-signed By: RAZ Lorazepam (Lorazepam 1 Mg Tab) 1 mg PO TID PRN PRN Reason: Anxiety Stop: 01/05/24 20:34 Last Admin: 12/07/23 21:11 Dose: 1 mg Documented By: Admin: 12/07/23 04:06 Dose: 1 mg Documented By: Admin: 12/06/23 21:05 Dose: 1 mg Documented By: LEONARD Losartan Potassium (Losartan Potassium 50 Mg Tab) 50 mg PO [facility] Stop: 01/06/24 08:59 Last Admin: 12/08/23 08:15 Dose: 50 mg Documented By: Admin: 12/07/23 08:00 Dose: 50 mg Documented By: PAUL Metoprolol Succinate (Metoprolol Succ 25mg Ext Rel Tab) 25 mg PO [facility] Stop: 01/06/24 08:59 Last Admin: 12/08/23 08:15 Dose: 25 mg Documented By: Admin: 12/07/23 08:00 Dose: 25 mg Documented By: PAUL Pantoprazole Sodium (Pantoprazole 40 Mg Tab) 40 mg PO [facility] Stop: 01/06/24 08:59 Last Admin: 12/07/23 08:00 Dose: 40 mg Documented By: PAUL Pantoprazole Sodium (Pantoprazole 40 Mg Tab) 40 mg PO BID [facility] Stop: 01/06/24 20:59 Last Admin: 12/08/23 08:14 Dose: 40 mg Documented By: Admin: 12/07/23 21:11 Dose: 40 mg Documented By: LEONARD Sertraline HCl (Sertraline Hcl 50 Mg Tablet) 25 mg PO PM [facility] Stop: 01/05/24 20:59 Last Admin: 12/07/23 21:11 Dose: 25 mg Documented By: Admin: 12/06/23 21:05 Dose: 25 mg Documented By: LEONARD Medical Decision Making Differential Diagnosis Sepsis, MRSA infection, diabetic ulcer, venous stasis changes Medical Records Attestation: I reviewed the patient's medical records. Home Medications Current Medication List: was personally reviewed by me Laboratory Data CBC obtained today shows a normal white count of 8.12. Low H&H at 13.6 and 39.3. He does not require a transfusion. Renal panel shows an elevated BUN and creatinine of 41 and 1.89. Glucose is normal. Bilirubin is elevated at 1.2. Lipase is significantly elevated at 275. Triglycerides are elevated at 186. 12/08/23 07:38 12/08/23 07:38 Lab Results 12/06/23 12/06/23 Range/Units 12:00 17:15 WBC 8.12 (4.8-10.8) K/ul RBC 4.31 L (4.70-6.10) M/uL Hgb 13.6 L (14.0-18.0) g/dl Hct 39.3 L (42.0-52.0) % MCV 91.2 (80.0-100.0) fL MCH 31.6 (25.0-34.0) pg MCHC 34.6 (32.0-36.0) g/dL RDW Std Deviation 47.4 H (36.4-46.3) fL RDW Coeff of Fernanda 14.1 (11.5-14.5) % Plt Count 136 (130-400) K/uL MPV 12.2 (9.4-12.4) fL Immature Gran % (Auto) 1.1 % Neut % (Auto) 64.0 % Lymph % (Auto) 20.1 % Bath % (Auto) 11.5 % Eos % (Auto) 2.7 % Baso % (Auto) 0.6 % Neut # (Auto) 5.20 (1.40-6.50) K/uL Lymph # (Auto) 1.63 (1.20-3.40) K/uL Bath # (Auto) 0.93 H (0.11-0.59) K/uL Eos # (Auto) 0.22 (0.00-0.50) K/uL Baso # (Auto) 0.05 (0.00-0.20) K/uL Immature Gran # (Auto) 0.09 (0.01-0.20) K/uL Sodium 134 L (136-145) mmol/L Potassium 4.1 (3.5-5.1) mmol/L Chloride 99 (98-107) mmol/L Carbon Dioxide 20 L (21-32) mmol/L Anion Gap 15 H (3-11) BUN 41 H (6-23) mg/dl Creatinine 1.89 H (0.6-1.4) mg/dl Est Cr Clr Drug Dosing 38.3 ml/min Est GFR ( Amer) 40.8 ml/min Est GFR (Non-Af Amer) 35.2 ml/min BUN/Creatinine Ratio 21.7 H (10-20) Glucose 87 (70-99(Fasting)) mg/dl Calcium 9.2 (8.6-10.3) mg/dl Total Bilirubin 1.2 H (0.2-1.0) mg/dl Direct Bilirubin 0.3 H (0-0.2) mg/dl AST 33 (13-39) U/L ALT 39 (7-52) U/L Alkaline Phosphatase 70 (34-104) U/L Total Protein 7.2 (6.0-8.3) gm/dl Albumin 4.0 (3.4-5.0) gm/dl Globulin 3.2 (2.5-4.0) gm/dl Albumin/Globulin Ratio 1.3 (0.9-2) Triglycerides 186 H (0-150) mg/dl Amylase 85 (25-115) U/L Lipase 275 H (11-82) U/L Nasal Screen MRSA (PCR) Negative (Negative) Imaging Data My Impression: CT scan imaging of the abdomen pelvis was obtained today. This was interpreted by me and read by radiology. There are no acute findings. No evidence of pancreatitis, acute cholecystitis, bowel obstruction, or mesenteric adenitis. Blood Pressure Blood Pressure Findings: Elevated blood pressure Blood Pressure Disposition: elevated BP felt to be situational MDM Narrative The patient was evaluated in room C4. Conservative care measures were discussed. IV was established. Labs were obtained. He has an elevated lipase along with his persisting nausea and vomiting. While this may be residual from his Ozempic, there is concern for pancreatitis. The patient is agreeable to admission. He will be made NPO. He will require different antibiotics for coverage of the strep and MRSA. The patient is aware. CT scan imaging of the abdomen pelvis was also obtained. this was unremarkable. He was hydrated gently using normal sterile saline at 125/h. A full liter was ordered. Please see the hospitalist service dictation for final management and outcomes. The patient was placed on a mobile ui developer and remained in normal sinus rhythm with a rate in the 70s. Care plan was discussed with Dr. Matute. Impression & Plan Elevated lipase Admission. Gentle hydration. Appropriate antibiotic coverage. Discharge Plan Visit Data Chief Complaint: Wound Stated Complaint: WOUND ON BUTTOCKS ED Provider: Emanuel Matute ED Midlevel Provider: Justen Roque Discharge Problem: Elevated lipase Patient Disposition: Admitted As Inpatient Discharge Instructions Interventions: ED Discharge Assessment Last Done: 12/06/23 19:45
[2023-12-06] MEDS: SODIUM CHLORIDE 0.9% 1,000 ML IV SCH (14:47)
--- NOTE | 2023-12-06 16:02 | History & Physical Report ---
Date of Service December 06, 2023 Assessment & Plan (1) Intractable vomiting: (2) Elevated lipase: (3) High anion gap metabolic acidosis: (4) Dyslipidemia: (5) Dyspepsia: (6) Wound of right buttock: Plan #Intractable vomiting #Elevated lipase - admit to inpt - in the setting of ozempic use - CT abd / pelvis pending - IVF, trial of clear liquid diet - GI eval #Mild anion gap metabolic acidosis - likely due to starvation - IVF - trend at this time #ERIN - due to dehydration - hold nephrotoxic agents - IVF - trend Cr #R Buttock wound - given lack of improvement with doxy (partially due to pt's inability to keep meds down), will treat with dapto - monitor at this time - wound care consulted #DM II - check A1c - monitor BG - sliding scale - clear liquid diet, advance diet as tolerated #HLD - hold statin in the setting of dapto #HTN - cont metoprolol, hold losartan #GERD - cont PPI History of Present Illness Chief Complaint: wound on the buttocks, intractable vomiting Primary Care Provider: Deacon Jorgensen MD 68yo M with PMHx of HTN, HLD, GERD presents to the hospital for the evaluation of right buttocks wound and intractable vomiting. Pt states that the right buttocks wound occurred couple months ago when he fell on his buttocks. He tired to manage the wound at home but since it was not improving, he went to urgent care for further evaluation. He was sent home on Doxycycline and mupirocin. He has not been able to tolerate doxycycline because of vomiting, but he has been using the topical agents consistently. Three days after the urgent care visit, he had a long flight to [place] for a and he feels that the flight back and forth worsened the wound further. Since it has not been improving, he came to the ED for further evaluation. From vomiting standpoint, he was started on Ozempic for weight loss. He took it for 6 weeks. During this period, the doses were increased and with higher dose, he started developing vomiting. He tried to bring the dose down, but symptoms persisted. Finally, he stopped taking it. Despite stopping Ozempic, he continues to have vomiting with oral intake. He states he has not had a meal in about 2 months. Other than the nausea, he denied any abdominal symptoms. Allergies Allergy/AdvReac Type Severity Reaction Status Date / Time ciprofloxacin Allergy Intermediate Rash, Verified 12/04/23 08:06 tunnel vision, loss of taste cimetidine Allergy Mild Diaphoresis Verified 12/04/23 08:06 cantaloupe Allergy Unknown Rash Verified 12/04/23 08:06 melon Allergy Unknown Rash Verified 12/04/23 08:06 Home Medications Medication Instructions Recorded Confirmed Type aspirin 81 mg tablet,delayed 81 mg PO QAM 01/21/19 12/06/23 History release lorazepam 1 mg tablet 1 mg PO TID PRN Anxiety 03/22/20 12/06/23 History losartan 50 mg tablet 50 mg PO QAM 10/03/21 12/06/23 History albuterol sulfate 90 mcg/actuation 2 puff inhalation Q6H PRN 12/11/22 12/06/23 Rx aerosol inhaler Shortness Of Breath Or Wheezing #18 grams atorvastatin 80 mg tablet (Lipitor) 80 mg PO QAM 02/09/23 12/06/23 History pantoprazole 40 mg tablet,delayed 40 mg PO QAM 02/09/23 12/06/23 History release (Protonix) Portable Oxygen #1 ea 02/11/23 12/06/23 Rx mupirocin 2 % topical ointment 1 applic topical BID #50 grams 11/21/23 12/06/23 Rx ondansetron 4 mg disintegrating 4 mg PO Q6H PRN nausea and 11/26/23 12/06/23 Rx tablet vomiting #20 tabs acetaminophen 500 mg tablet 500 mg PO QID PRN Pain 12/04/23 12/06/23 History bumetanide 1 mg tablet 1 mg PO . ON HOLD 12/04/23 12/06/23 History diclofenac sodium 75 mg 75 mg PO QAM 12/04/23 12/06/23 History tablet,delayed release isosorbide mononitrate 30 mg 15 mg PO .ON HOLD 12/04/23 12/06/23 History tablet,extended release 24 hr metoprolol succinate 25 mg 25 mg PO QAM 12/04/23 12/06/23 History tablet,extended release 24 hr potassium chloride 20 mEq 20 meq PO .ON HOLD 12/04/23 12/06/23 History tablet,extended release sertraline 25 mg tablet 25 mg PO PM 12/04/23 12/06/23 History amoxicillin 500 mg capsule 2,000 mg PO ONCE PRN 1 HR BEFORE 12/06/23 12/06/23 History APPOINTMENT Past Med/Surg History Problem List (Updated 12/06/23 @ 16:38 by Loren Culp MD) Wound of right buttock Dyspepsia Dyslipidemia High anion gap metabolic acidosis Elevated lipase Intractable vomiting Pulmonary hypertension Demand ischemia of myocardium Acute postoperative pulmonary insufficiency Morbid obesity with BMI of 45.0-49.9, adult Acute on chronic diastolic CHF (congestive heart failure) Alicia catheter in place Acute respiratory acidosis Pulmonary edema (HFpEF) heart failure with preserved ejection fraction Acute and chronic respiratory failure with hypoxia Complex renal cyst Left nephrolithiasis Recurrent UTI Chronic respiratory failure with hypoxia Follows with Dr Dias Recent PFT 12/[address] Ex-smoker Exertional shortness of breath Hypersomnia Restrictive lung disease Pre-op chest exam Junctional rhythm Diabetes mellitus type 2 in obese MRSA pneumonia hx- states 2020, while had covid Acute encephalopathy Acute encephalopathy Morbid obesity due to excess calories Hypervolemia Acute hypoxemic respiratory failure DVT prophylaxis Elevated troponin (Acute) CAD (coronary artery disease), [place] coronary artery stent x1 (2006)- 2 attempts at [facility] > transferred to [facility] for stent placement Hypoxia (Acute) Pneumonia due to COVID-19 virus (Acute) S/P total hip arthroplasty Localized osteoarthrosis of right hip Encounter for pre-operative examination History of skin cancer Hiatal hernia Osteoarthritis Hypertension Hyperlipidemia Diverticulitis (Acute) Abdominal pain (Acute) Medical History Neuropathy left hand Osteoarthritis Hyperlipidemia Hypertension Diverticular disease Hiatal hernia CAD (coronary artery disease) Hx MRSA infection 2020 > when had covid, and at present from recent wound culture 10/2023 Diabetes mellitus, type 2 diet controlled, hx of Ozempic use, no longer Restrictive lung disease per pt, had recent lung function test and is all looking much better, rare res inh use Hx of recurrent urinary tract infection none at present CHF (congestive heart failure) concerned with fluid overload during surgery, happened with lithotripsy, plans to discuss at pre op. History of kidney stones On home oxygen therapy 1-2 lpm via [place] prn > rare use per pt > lung functioning improving per pt History of claustrophobia History of COVID-19 07/2020 > hospitalized, ventilator support x10 days at [facility]- Covid MRSA PNA Morbid obesity Anxiety History of heart attack 2006 Surgical History History of lithotripsy Hx of decompression of ulnar nerve Left ulnar nerve decompression (10/24/21): LMA#5 at [facility] S/P hip replacement right History of cardiac cath 03/2023 > [facility] > no stents stent x1 (2006)- 2 attempts at [facility] > transferred to [facility] for stent placement History of colonoscopy History of tooth extraction History of arthroscopy of left knee History of arthroscopy of right knee History of tonsillectomy History of skin cancer resection Family History Sister Family history of breast cancer Father Family history of leukemia Other Family history of skin cancer Social History Smoking Status: Former smoker Tobacco Type: Cigarettes and Cigars Age Started Using Tobacco: 14; Age Quit Using Tobacco: 51; packs per day: 0.5; Cigarettes Per Day: ~1/2 PPD x 25 YEARS; Second Hand Exposure: No; Do You Dip or Chew Tobacco: No; Hx Alcohol Use: Yes Alcohol type: hard liquor Hx Substance Use: No Preferred Language: Tajik Communication Ability: Effective Plant Taxonomy Teacher Required: No Beliefs That Will Affect Care: None marital status: Current Living Situation: Spouse Feels Safe at Home: Yes Assistive Devices: Cane, Glasses, Oxygen - Continuous and Walker Review of Systems Review of Systems: comprehensive ROS completed Physical Exam Physical Exam: Gen: sitting in bed comfortably, no acute distress HEENT: normocephalic / atraumatic, anicteric, moist mucous membranes CVS: s1s2 nl, RRR, no rubs / murmurs / gallops Lungs: CTAB Abd: protuberant, nl bowel sounds, soft, nontender, no rebound / rigidity / guarding Ext: no edema Neuro: awake, alert, communicating appropriately Results & Data Results & Data Vital Signs (Past 12 Hours) Vital Signs Temp Pulse Pulse Resp BP BP Pulse Ox 12/06/23 15:09 70 18 106/64 98 12/06/23 13:30 61 18 98/70 L 100 12/06/23 13:13 64 12/06/23 12:18 36.1 C L 67 18 114/79 97 12/06/23 12:16 66 16 100/64 95 O2 Del Method 12/06/23 15:09 Room Air 12/06/23 13:30 12/06/23 13:13 12/06/23 12:18 Room Air 12/06/23 12:16 Room Air Laboratory Results Abnormal lab results 12/06/23 Range/Units 12:00 RBC 4.31 L (4.70-6.10) M/uL Hgb 13.6 L (14.0-18.0) g/dl Hct 39.3 L (42.0-52.0) % RDW Std Deviation 47.4 H (36.4-46.3) fL Imperial # (Auto) 0.93 H (0.11-0.59) K/uL Sodium 134 L (136-145) mmol/L Carbon Dioxide 20 L (21-32) mmol/L Anion Gap 15 H (3-11) BUN 41 H (6-23) mg/dl Creatinine 1.89 H (0.6-1.4) mg/dl BUN/Creatinine Ratio 21.7 H (10-20) Total Bilirubin 1.2 H (0.2-1.0) mg/dl Direct Bilirubin 0.3 H (0-0.2) mg/dl Triglycerides 186 H (0-150) mg/dl Lipase 275 H (11-82) U/L Code Status & VTE Plan Code Status full code PG Care Time/CCT Total # of Minutes Spent Total Time Spent with Patient: Total time spent is greater than 50% in coordination of care (as documented) at patient's floor/unit and/or counseling patient: Coding Level of Care Code 64401 INT INP/OBS CARE 3/75MIN Diagnoses Intractable vomiting R11.10 Elevated lipase R74.8 High anion gap metabolic acidosis E87.29 Dyslipidemia E78.5 Dyspepsia R10.13 Wound of right buttock S31.819A
--- NOTE | 2023-12-06 16:51 | CT Scan Report ---
CT abd pelvis wo con CLINICAL HISTORY: N/V, elevated lipase TECHNIQUE: Helical axial images of the abdomen and pelvis were obtained. Automated dose lowering tech niques and/or adjustment according to patient size were utilized for this exam. This exam was perfor med without intravenous contrast. CT DOSE: 1270.56 mGy.cm COMPARISON: Comparison is made to CT abdomen pelvis 01/19/2023 FINDINGS: Lower chest: No acute abnormality. Liver: Unremarkable. No focal lesions are seen. Gallbladder and biliary tree: No calcified gallstones. Normal caliber wall. No intra- or extrahepatic biliary ductal dilation. Pancreas: Unremarkable, no focal lesions. Spleen: Calcifications are noted in the spleen compatible with prior granulomatous disease. Adrenals: Unremarkable. Kidneys and ureters: Renal cysts are seen. Nonobstructive stone is seen in the left kidney. Bladder: Unremarkable. Reproductive organs: Unremarkable. Bowel: Diverticulosis is seen without diverticulitis. The appendix is normal. Lymph nodes Retroperitoneal: Unremarkable. Pelvic: Unremarkable. Mesenteric: Unremarkable. Peritoneum: Normal. Vessels: Atherosclerotic calcifications are seen. 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 Abdominal wall: A fat-containing umbilical hernia is seen. Bilateral fat-containing inguinal hernias are seen. Bones: Degenerative changes in the visualized spine. Right hip arthroplasty is seen. IMPRESSION: No acute abnormalities and in particular no peripancreatic fat stranding to suggest pancreatitis in t his patient with elevated lipase. ACT 112: Negative or not required by law. Electronically signed by: Boaz Fatima M.D. 12/06/2023 4:48 PM
[2023-12-06] MEDS: DAPTOmycin 300 MG in SYRINGE 0 ML IV SCH (17:13)
[2023-12-06] MEDS ORDERED: GLUCAGON FOR INJ 1 MG VIAL SQ PRN (20:35)
[2023-12-06] MEDS ORDERED: GLUCOSE 10 TAB/TUBE PO PRN (20:35)
[2023-12-06] MEDS ORDERED: DEXTROSE 50% 50 ML SYRINGE IV PRN (20:35)
[2023-12-06] MEDS ORDERED: GLUCOSE 40% GEL 15 GM TUBE PO PRN (20:35)
[2023-12-06] MEDS ORDERED: CARBOHYDRATES FOR HYPOGLYCEMIA PO PRN (20:35)
[2023-12-06] MEDS ORDERED: ALBUTEROL HFA 8 GM INHALER INH PRN (20:35)
[2023-12-06] MEDS ORDERED: ONDANSETRON INJ 2 MG/ML 2 ML VIAL IV PRN (20:35)
[2023-12-06] MEDS: SERTRALINE HCL 50 MG TABLET PO SCH (21:05)
[2023-12-06] MEDS: LORazepam 1 MG TAB PO PRN (21:05)
[2023-12-06] MEDS: HEPARIN SOD 5,000 UNIT/0.5 ML VIAL SQ SCH (21:06)
[2023-12-06] MEDS: INSULIN ASPART PER UNIT CHARGE SC SCH (21:58)
[2023-12-07 07:48] LABS: Mean Corpuscular Hemoglobin 31.1 pg (25.0-34.0); Mean Corpuscular Hgb Conc 34.3 g/dL (32.0-36.0); Mean Corpuscular Volume 90.7 fL (80.0-100.0); Mean Platelet Volume 12.2 fL (9.4-12.4); Platelet Count 108 K/uL (130-400); RDW Coefficient of Variation 14.1 % (11.5-14.5); RDW Standard Deviation 46.3 fL (36.4-46.3); Red Blood Count 3.86 M/uL (4.70-6.10)
[2023-12-07] MEDS: PANTOprazole 40 MG TAB PO SCH ×2 (08:00→21:11)
[2023-12-07] MEDS: ASPIRIN 81 MG ECTAB PO SCH (08:00)
[2023-12-07] MEDS: METOPROLOL SUCC 25MG EXT REL TAB PO SCH (08:00)
[2023-12-07] MEDS: LOSARTAN POTASSIUM 50 MG TAB PO SCH (08:00)
[2023-12-07 08:10] LABS: Albumin Globulin Ratio 1.3 (0.9-2); Albumin Level 3.4 gm/dl (3.4-5.0); BUN Creatinine Ratio 22.7 (10-20); Bilirubin,Total 0.9 mg/dl (0.2-1.0); Calcium 8.4 mg/dl (8.6-10.3); Creatinine Clr Calc Pharmacy 51.3 ml/min; Est GFR (African American) 58.1 ml/min; Est GFR (Non-African American) 50.1 ml/min; Globulin 2.7 gm/dl (2.5-4.0); Magnesium 1.3 mg/dl (1.7-2.4); Phosphorus 3.8 mg/dl (2.5-4.9); Potassium 3.5 mmol/L (3.5-5.1); Total Protein 6.1 gm/dl (6.0-8.3)
[2023-12-07 08:14] LABS: Estimated Average Glucose 137 mg/dl; Hemoglobin A1C 6.4 % (4.5-5.6)
[2023-12-07] MEDS: MAGNESIUM SULFATE / D5W 1 GM/100 ML BAG IV SCH (08:53)
--- NOTE | 2023-12-07 10:33 | Gastrointestinal Consultation ---
<Statement entered by Jocelin Naylor MD - 12/07/23 17:28> I have examined the patient, reviewed the History & Physical and in the interval since the performance of the History & Physical I have noted the following changes of clinical significance: no changes noted. I agree with the documentation provided by JAY Melissa with no additional comments. Date of Consultation December 07, 2023 Assessment & Plan (1) Intractable vomiting: Patient with issues with nausea/vomiting, and loss of appetite that seems to coincide with starting ozempic as well as using doxycycline for buttocks wound. He reports no symptoms in the past 4 days. He also had elevated Lipase but CT imaging shown no acute abnormalities. - currently he is tolerating clears. - continue with protonix 40mg, but can increase to bid dosing. - continue with zofran 4mg IV q 6 hours prn nausea/vomiting. 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 History of Present Illness Reason for Consultation: intractable nausea/ elevated lipase Requesting Physician: Loren Culp MD Attending Physician: Singh Singh History of Present Illness Patient is a 68 year old male with a past medical history of HTN, HLD, GERD who presented to the hospital for the evaluation of a right buttocks wound and on and off intractable nausea/vomiting. Pt states that the right buttocks wound occurred a few months ago when he fell on his buttocks. He tired to manage the wound at home but since it was not improving, he went to urgent care for further evaluation. He was sent home on Doxycycline and mupirocin. He has not been able to tolerate doxycycline and feels that it was partially part of the reason he has had nausea and vomiting, but he has been using the topical agents consistently. He also feels that the nausea/vomiting has been an issue since starting ozempic for weight loss a few weeks ago. He tells me that he took the ozempic for a few weeks but has now been off of this for 4 weeks as it was making him nauseated and he feels this effected his appetite. Since it has not been improving, he came to the ED for further evaluation. He tells me that he has not had further nausea/vomiting the past 4 days. He does admit to some issues with heartburn but takes protonix 40mg daily which helps. he jaramillo admit to using diclofenac regularly as an outpatient for knee pain. rest of GI ros are unremarkable. He [facility] and reports that he had an unremarkable EGD done there about a year ago. He tells me his last colonoscopy was also done there and was unremarkable. I do not have these records. 12/06/23 lipase 275, t bili 1.2, d bili 0.3, rest of lfts unremarkable. 12/07/23 lipase 220, normal lfts. CT 12/05 No acute abnormalities and in particular no peripancreatic fat stranding to suggest pancreatitis in this patient with elevated lipase. Allergies Allergy/AdvReac Type Severity Reaction Status Date / Time ciprofloxacin Allergy Intermediate Rash, Verified 12/04/23 08:06 tunnel vision, loss of taste cimetidine Allergy Mild Diaphoresis Verified 12/04/23 08:06 cantaloupe Allergy Unknown Rash Verified 12/04/23 08:06 melon Allergy Unknown Rash Verified 12/04/23 08:06 Home Medications Medication Instructions Recorded Confirmed Type aspirin 81 mg tablet,delayed 81 mg PO QAM 01/21/19 12/06/23 History release lorazepam 1 mg tablet 1 mg PO TID PRN Anxiety 03/22/20 12/06/23 History losartan 50 mg tablet 50 mg PO QAM 10/03/21 12/06/23 History albuterol sulfate 90 mcg/actuation 2 puff inhalation Q6H PRN 12/11/22 12/06/23 Rx aerosol inhaler Shortness Of Breath Or Wheezing #18 grams atorvastatin 80 mg tablet (Lipitor) 80 mg PO QAM 02/09/23 12/06/23 History pantoprazole 40 mg tablet,delayed 40 mg PO QAM 02/09/23 12/06/23 History release (Protonix) Portable Oxygen #1 ea 02/11/23 12/06/23 Rx mupirocin 2 % topical ointment 1 applic topical BID #50 grams 11/21/23 12/06/23 Rx ondansetron 4 mg disintegrating 4 mg PO Q6H PRN nausea and 11/26/23 12/06/23 Rx tablet vomiting #20 tabs acetaminophen 500 mg tablet 500 mg PO QID PRN Pain 12/04/23 12/06/23 History bumetanide 1 mg tablet 1 mg PO . ON HOLD 12/04/23 12/06/23 History diclofenac sodium 75 mg 75 mg PO QAM 12/04/23 12/06/23 History tablet,delayed release isosorbide mononitrate 30 mg 15 mg PO .ON HOLD 12/04/23 12/06/23 History tablet,extended release 24 hr metoprolol succinate 25 mg 25 mg PO QAM 12/04/23 12/06/23 History tablet,extended release 24 hr potassium chloride 20 mEq 20 meq PO .ON HOLD 12/04/23 12/06/23 History tablet,extended release sertraline 25 mg tablet 25 mg PO PM 12/04/23 12/06/23 History amoxicillin 500 mg capsule 2,000 mg PO ONCE PRN 1 HR BEFORE 12/06/23 12/06/23 History APPOINTMENT Patient History Medical History Neuropathy left hand Osteoarthritis Hyperlipidemia Hypertension Diverticular disease Hiatal hernia CAD (coronary artery disease) Hx MRSA infection 2020 > when had covid, and at present from recent wound culture 10/2023 Diabetes mellitus, type 2 diet controlled, hx of Ozempic use, no longer Restrictive lung disease per pt, had recent lung function test and is all looking much better, rare res inh use Hx of recurrent urinary tract infection none at present CHF (congestive heart failure) concerned with fluid overload during surgery, happened with lithotripsy, plans to discuss at pre op. History of kidney stones On home oxygen therapy 1-2 lpm via [place] prn > rare use per pt > lung functioning improving per pt History of claustrophobia History of COVID-19 07/2020 > hospitalized, ventilator support x10 days at [facility]- Covid MRSA PNA Morbid obesity Anxiety History of heart attack 2006 Surgical History History of lithotripsy Hx of decompression of ulnar nerve Left ulnar nerve decompression (10/24/21): LMA#5 at [facility] S/P hip replacement right History of cardiac cath 03/2023 > [facility] > no stents stent x1 (2006)- 2 attempts at [facility] > transferred to [facility] for stent placement History of colonoscopy History of tooth extraction History of arthroscopy of left knee History of arthroscopy of right knee History of tonsillectomy History of skin cancer resection Family History Sister Family history of breast cancer Father Family history of leukemia Other Family history of skin cancer Social History Smoking Status: Former smoker Tobacco Type: Cigarettes and Cigars Age Started Using Tobacco: 14; Age Quit Using Tobacco: 51; packs per day: 0.5; Cigarettes Per Day: ~1/2 PPD x 25 YEARS; Second Hand Exposure: No; Do You Dip or Chew Tobacco: No; Hx Alcohol Use: Yes Alcohol type: hard liquor Hx Substance Use: No Preferred Language: Malian Communication Ability: Effective Kennel Manager Dog Track Required: No Beliefs That Will Affect Care: None marital status: Current Living Situation: Spouse Feels Safe at Home: Yes Safety Concerns: Feels Safe At This Time Assistive Devices: Cane, Glasses and Walker Review of Systems Review of Systems: All systems reviewed & are unremarkable except as noted in HPI & below Physical Exam Constitutional: WD/WN, vitals as above Respiratory: normal respiratory effort, lungs clear to auscultation Cardiovascular: RRR, no murmur, no edema Gastrointestinal (Abdomen): normal bowel sounds, soft, nontender, no hepatosplenomegaly Psychiatric: Orientation: alert and oriented x 3 Affect: euthymic affect Results & Data Vital Signs (Past 12 Hours) Vital Signs Temp Pulse Pulse Resp BP Pulse Ox O2 Del Method 12/07/23 07:32 97.7 F 82 16 108/66 99 Room Air 12/07/23 07:05 97.3 F L 68 18 95/59 L 98 Room Air Coding Level of Care Code 02157 INT INP/OBS CARE 2/55MIN Diagnoses Intractable vomiting R11.10
--- NOTE | 2023-12-07 13:23 | Hospitalist Progress Note ---
Date of Service December 07, 2023 Assessment & Plan (1) Wound of right buttock: Plan: About 2-3 weeks ago, patient fell in kitchen and sustained wound to buttock area. He was evaluated by Urgent care who placed him on doxycyline for management of this. Due to GI upset, patient had issues taking medication adequately. -Stopped doxycycline -Continue Daptomycin -Reviewed cultures 11/20 positive for staph aureus MRSA and group B strep -Will plan to transition to oral antibiotics upon discharge. -Reviewed CBC 12/06: WBC WNL. AM CBC (2) Intractable vomiting: Plan: Patient has had issues with vomiting since increasing ozempic, increasing potassium, and starting doxycyline. Patient has been off Ozempic for 5 weeks now -Likely due to medication side effect -Continue to monitor -GI consulted 12/06, reviewed recommendations -Increase PPI to BID -Zofran prn -Follow up / [facility] GI outpatient to re-consider EGD -patient tolerated clear liquid diet for lunch, advanced to full liquid -Reviewed lipase 12/06: 220, nonspecific. Patient endorses no abdominal pain. -Reviewed CTAP 12/05: no acute abnormalities & in particular no peripancreatic fat stranding. -Advised patient to avoid Ozempic use in future -If N/V continues outpatient, could consider gastric emptying study. (3) Hypomagnesemia: Plan: -Reviewed magnesium 12/06: 1.3 -S/p 2 bags magnesium AM Mag (4) High anion gap metabolic acidosis: Plan: Most likely due to starvation -Continue IVF -Reviewed BMP 12/06: CO2 19, Anion Gap 12 -Continue to trend AM BMP (5) Acute kidney injury: Plan: Most likely due to dehydration -Continue IVF -Reviewed BMP 12/06:creatinine improving to 1.41, BUN 32 -Continue to trend AM BMP Plan Chronic conditions: -type 2 diabetes: A1c 12/06: 6.4%; sliding scale -Hyperlipidemia: hold statin in setting of daptomcyin -Hypertension: metoprolol, hold losartan, BP stable. -GERD: continue PPI, increased to BID. -Anxiety/depression: sertraline DVT prophylaxis: Heparin Code status: full Diet: full liquid Disposition: medical, discharge home 12/07 if patient can tolerate diet. Admission and Anticipated Discharge Date Admission Date: December 06, 2023 Subjective Patient seen and examined this morning at bedside. Patient states he has not had any nausea or vomiting for at least the last 5 days. He states that he stopped his Ozempic about a month ago. he also stopped his potassium and doxycycline outpatient which he felt helped with his symptoms. He denies any abdominal pain. He denies chest pain or shortness of breath. he is eager to return home as he has several doctors appointments this week to attend to. Physical Exam 2 Constitutional: WD/WN, vitals as above Eyes: PERRL, conjunctivae normal, anicteric sclerae Respiratory: normal respiratory effort, lungs clear to auscultation Cardiovascular: RRR, no murmur, no edema Skin: wounds on interior b/l buttock. without exudate or blood. nontender to palpation. Psychiatric: A+Ox3, euthymic affect Results & Data Results & Data Vital Signs (Past 12 Hours) Vital Signs Temp Pulse Pulse Pulse Resp BP BP 12/07/23 12:56 36.8 C 90 16 96/56 L 12/07/23 07:32 36.5 C 82 16 108/66 12/07/23 07:05 36.3 C L 68 18 95/59 L Pulse Ox O2 Del Method 12/07/23 12:56 99 Room Air 12/07/23 07:32 99 Room Air 12/07/23 07:05 98 Room Air Laboratory Results 12/07/23 07:09 12/07/23 07:09 PG Care Time/CCT Total # of Minutes Spent Total Time Spent with Patient: Total time spent is greater than 50% in coordination of care (as documented) at patient's floor/unit and/or counseling patient: Coding Level of Care Code 25178 SUB INP/OBS CARE 2/35MIN Diagnoses Wound of right buttock, subsequent encounter S31.819D Encounter type: subsequent encounter Intractable vomiting R11.10 Hypomagnesemia E83.42 High anion gap metabolic acidosis E87.29 Acute kidney injury N17.9 (1) Wound of right buttock Encounter type: subsequent encounter Qualified Code(s): S31.819D - Unspecified open wound of right buttock, subsequent encounter
[2023-12-07] MEDS: ACETAMINOPHEN 325 MG TAB PO PRN (21:17)
[2023-12-08 08:18] LABS: Hemoglobin 12.1 g/dl (14.0-18.0); Mean Corpuscular Hemoglobin 31.4 pg (25.0-34.0); Mean Corpuscular Hgb Conc 33.6 g/dL (32.0-36.0); Mean Corpuscular Volume 93.5 fL (80.0-100.0); Mean Platelet Volume 12.1 fL (9.4-12.4); Platelet Count 115 K/uL (130-400); RDW Coefficient of Variation 14.6 % (11.5-14.5); RDW Standard Deviation 49.7 fL (36.4-46.3); Red Blood Count 3.85 M/uL (4.70-6.10); White Blood Count 7.99 K/ul (4.8-10.8)
[2023-12-08 08:50] LABS: Albumin Globulin Ratio 1.3 (0.9-2); Albumin Level 3.3 gm/dl (3.4-5.0); BUN Creatinine Ratio 15.4 (10-20); Bilirubin,Total 0.7 mg/dl (0.2-1.0); Calcium 8.1 mg/dl (8.6-10.3); Creatinine Clr Calc Pharmacy 61.9 ml/min; Est GFR (African American) 72.8 ml/min; Est GFR (Non-African American) 62.8 ml/min; Globulin 2.6 gm/dl (2.5-4.0); Magnesium 1.6 mg/dl (1.7-2.4); Potassium 3.3 mmol/L (3.5-5.1); Total Protein 5.9 gm/dl (6.0-8.3)
--- NOTE | 2023-12-08 10:48 | Communication Note ---
<Statement entered by Jocelin Naylor MD - 12/08/23 13:26> I reviewed the History & Physical and in the interval since the performance of the History & Physical I have noted the following changes of clinical significance: no changes noted. I agree with the documentation provided by JAY Melissa with no additional comments.The patient was discharged today prior to me being able to see him. Date of Service: December 08, 2023 Patient tells me he has been tolerating his diet. no nausea, vomiting, abdominal pain. He moved his bowels this morning and tells me it is normal color/consistency. he is feeling much better from a GI standpoint. he is planned for discharge today. He had followed his GI care in the past with [facility], would recommend he follow up with them as outpatient.
--- NOTE | 2023-12-08 11:09 | Discharge Summary ---
Date of Service December 08, 2023 Admission HPI Per Admitting Provider 68yo M with PMHx of HTN, HLD, GERD presents to the hospital for the evaluation of right buttocks wound and intractable vomiting. Pt states that the right buttocks wound occurred couple months ago when he fell on his buttocks. He tired to manage the wound at home but since it was not improving, he went to urgent care for further evaluation. He was sent home on Doxycycline and mupirocin. He has not been able to tolerate doxycycline because of vomiting, but he has been using the topical agents consistently. Three days after the urgent care visit, he had a long flight to [place] for a and he feels that the flight back and forth worsened the wound further. Since it has not been improving, he came to the ED for further evaluation. From vomiting standpoint, he was started on Ozempic for weight loss. He took it for 6 weeks. During this period, the doses were increased and with higher dose, he started developing vomiting. He tried to bring the dose down, but symptoms persisted. Finally, he stopped taking it. Despite stopping Ozempic, he continues to have vomiting with oral intake. He states he has not had a meal in about 2 months. Other than the nausea, he denied any abdominal symptoms. Principal Diagnosis Right buttock wound, nausea/vomiting Discharge Exam Constitutional WD/WN, vitals as above Eyes PERRL, conjunctivae normal, anicteric sclerae Respiratory normal respiratory effort, lungs clear to auscultation Cardiovascular RRR, no murmur, no edema Skin no rashes, warm and dry Psychiatric A+Ox3, euthymic affect Discharge Data Allergies Allergy/AdvReac Type Severity Reaction Status Date / Time ciprofloxacin Allergy Intermediate Rash, Verified 12/09/23 08:17 tunnel vision, loss of taste cimetidine Allergy Mild Diaphoresis Verified 12/09/23 08:17 cantaloupe Allergy Unknown Rash Verified 12/09/23 08:17 melon Allergy Unknown Rash Verified 12/09/23 08:17 Consultations 12/06/23 14:50 ED Decision to Admit Stat 12/06/23 16:14 Consult Gastroenterology Routine Ordered Studies Abdomen/Pelvis CT 12/06/23 14:50 IMPRESSION: No acute abnormalities and in particular no peripancreatic fat stranding to suggest pancreatitis in this patient with elevated lipase. Electronically signed by: Boaz Fatima M.D. 12/06/2023 4:48 PM 12/08/23 07:38 12/08/23 07:38 Vital Signs Temp 36.3 C L 12/08/23 11:19 Pulse 82 12/08/23 11:19 Resp 16 12/08/23 11:19 BP 104/62 12/08/23 11:19 Pulse Ox 96 12/08/23 11:19 O2 Del Method Room Air 12/08/23 07:19 Hospital Course (1) Wound of right buttock: Patient had fallen about 2-3 weeks ago in his kitchen and sustained wound to his buttock area. He was then evaluated by urgent care who placed him on doxycycline for treatment. However this caused significant GI upset and he had issues taking the medication. He presented to the ED on 12/05 for this. He was placed on Daptomycin while inpatient and received two doses. Upon discharge, he was transitioned to Bactrim 800mg BID and Amoxicillin 875mg BID for 7 days. He did complain of looser stool 12/07 and was sent home with probiotic to take with antibiotics. His cultures from 11/21/2023 were positive for MRSA and group B strep. His CBC on 12/07 did reveal normal WBC of 7.99. (2) Intractable vomiting: Patient has had issues with vomiting since increasing ozempic, increasing potassium, and starting doxycyline. Patient has been off Ozempic for 5 weeks now. GI did evaluated the patient hwo had recommended to increase his PPI to BID and use zofran prn. He is to follow up with GI outpatient to re-consider an EGD. Symptoms were likely due to medications. He was able to tolerate a soft diet for breakfast 12/07 with no issues. He had a CTAP 12/05 that was negative for acute pathology. He was advised to avoid Ozempic use in future. If nausea/vomiting continues, could also consider a gastric emptying study. (3) Hypomagnesemia: Patient found to have hypomagnesemia on 12/06 with level of 1.3. He was corrected with 2 bags of magnesium and had improved to 1.6. (4) High anion gap metabolic acidosis: Most likely due to starvation. He was given IVF while inpatient. His BMP 12/07 revealed improved CO2 of 120 and anion gap 9. (5) Acute kidney injury: Most likely due to dehydration. He was given IVF while inpatient. BMP on 12/07 revealed normalization of kidney function with BUN 18 and creatinine 1.17. Plan Patient was placed on sliding scale during his hospital stay and required no insulin for his diabetes. His statin was held in the event of daptomycin. He also had his losartan held. He was continued on metoprolol for HTN. BP remaiend stable. His PPI was increased to BID for GERD. He was continued on Sertraline for anxiety/depression. -He was recommended to hold his potassium, losartan, isosorbide mononitrate, bumetanide, and statin until seen by his PCP on 12/08. Patient had wanted to discuss his medications in detail with his provider. Total Time Total Time Spent Total Time Spent (In Minutes): 40 Total Time Includes: Examination of the Patient, Discharge Planning and Medication Reconciliation Discharge Plan Discharge Items Patient Disposition: Home - Self-Care Reason For Visit: INTRACTABLE VOMITING Discharge Diagnosis: Right buttock wound, nausea/vomiting Activity: Resume your previous activity Non-emergency contact: Primary Care Provider Call non-emergency contact if: you have any medication questions, your symptoms worsen, you have a fever, your wound has increased redness, your wound has increased drainage and your wound pain has increased Follow-up/Referrals: Deacon Jorgensen MD [Primary Care Provider] - 12/10/23 9:05 am ([facility] ) Diet: Carb Consistent or DM2 and Low Sodium (2gm) Addtl Attending Provider Instructions: Mr. Herrera, You were hospitalized for nausea and vomiting along with your right buttock wound. You did receive IV antibiotics while hospitalized. Please see recommendations below regarding discharge. 1. You will be prescribed two antibiotics for 5 days. Please start these tonight 12/07. -Please take Bactrim 800mg twice daily. -Please take Amoxicillin 875mg twice daily. -take with food to avoid upset stomach. 2. Please also take the probiotic for the next 5 days while on antibiotic therapy. 3. Please hold losartan, potassium, atorvastatin, bumetanide, and isosorbide mononitrate until seen by PCP later this week. 4. We adjusted your pantoprazole to be taken twice daily in the hospital. Please continue this upon discharge. 5. Please use Zofran as needed for nausea and vomiting 6. GI will be in contact with an office follow up for you 7. Please discuss diabetic medications with your PCP this week. You have not required insulin during your inpatient stay and it is recommended to avoid further Ozempic use due to the side effects you experienced. 8. Please continue metoprolol for your high blood pressure. 9. Please continue sertraline for anxiety/depression. Please follow up with your PCP as scheduled this week. If your symptoms worsen including nausea/vomiting uncontrolled by antiemetics or increased wound drainage or tenderness please report back to the ER. Sincerely, Magali Zabala PA-C Pending Studies at Discharge: No Stand-Alone Forms: [employer], Smoking Cessation Medications and DC Order Prescriptions: New pantoprazole [Protonix] 40 mg tablet,delayed release (DR/EC) 40 mg PO BID Qty: 60 0RF sulfamethoxazole-trimethoprim [Bactrim DS] 800-160 mg tablet 1 tab PO BID Qty: 10 0RF Probiotic 3 billion cell capsule 3,000 mmu cells PO DAILY Qty: 5 0RF Rx Instructions: administer with a meal amoxicillin 875 mg tablet 875 mg PO Q12H Qty: 10 0RF Continued albuterol sulfate 90 mcg/actuation HFA aerosol inhaler 2 puff inhalation Q6H PRN (Reason: Shortness Of Breath Or Wheezing) Qty: 18 11RF ondansetron 4 mg tablet,disintegrating 4 mg PO Q6H PRN (Reason: nausea and vomiting) Qty: 20 0RF aspirin 81 mg tablet,delayed release (DR/EC) 81 mg PO QAM mupirocin 2 % ointment 1 applic topical BID Qty: 50 0RF lorazepam 1 mg tablet 1 mg PO TID PRN (Reason: Anxiety) Rx Instructions: patient takes this med 3 times a day routinely sertraline 25 mg Tablet 25 mg PO PM diclofenac sodium 75 mg Tablet,Delayed Release (Dr/Ec) 75 mg PO QAM metoprolol succinate 25 mg tablet extended release 24 hr 25 mg PO QAM acetaminophen 500 mg Tablet 500 mg PO QID PRN (Reason: Pain) Held atorvastatin [Lipitor] 80 mg tablet 80 mg PO QAM Hold Instructions: Resume on 12/22/23. until seen by PCP potassium chloride 20 mEq tablet extended release 20 meq PO .ON HOLD Hold Instructions: Resume on 12/22/23. until seen by PCP Discontinued pantoprazole [Protonix] 40 mg tablet,delayed release (DR/EC) 40 mg PO QAM amoxicillin 500 mg capsule 2,000 mg PO ONCE PRN (Reason: 1 HR BEFORE APPOINTMENT) No Action bumetanide 1 mg tablet 1 mg PO DAILY PRN (Reason: weight gain) Qty: 30 5RF Hold Instructions: Resume on 12/22/23. until seen by PCP (DME) Portable Oxygen Misc See Rx Instructions .MEDSUPPLY Qty: 1 0RF Rx Instructions: Oxygen 2 liters continuous via nasal cannula at rest and 3 liters with ambulation/activity. Discharge Orders: Discharge Order (Routine); Ordered 12/08/23 Ordered By: Magali Jorge/Other Patient Handouts: Nutrition for Wound Healing, Managing Type 2 Diabetes Admission Data Admit Date/Time: 12/06/23 18:48 Attending Provider: Singh Singh Admit Provider: Loren Culp Primary Care Provider: Deacon Jorgensen Other Providers: Loren Culp; Joan Centeno Other Interventions: Discharge Summary Assessment (RN) Last Done: 12/08/23 11:19 Supervising Physician Co-Signing Physician Notes During face to face encounter, I obtained a brief physical examination, discussed hospital stay with patient and discharge instructions with patient. I discussed discharge plan of care with RADHA ZABALA. I reviewed above note and agree with it except for the following: Patient will be discharged on antibiotics for superficial wound. Coding Level of Care Code 47458 INP/OBS DISCH >30 MIN Diagnoses Wound of right buttock, subsequent encounter S31.819D Encounter type: subsequent encounter Intractable vomiting R11.10 Hypomagnesemia E83.42 High anion gap metabolic acidosis E87.29 Acute kidney injury N17.9
== END 2023-12-08 12:24 | disposition home or self-care (01) | DRG 605 ==
LOC: ED 12:16 → SUATTDRO 18:48 → 3W 18:48

== ENCOUNTER 2024-01-01 12:55 | Inpatient (IN) ==
--- NOTE | 2024-01-01 13:45 | Emergency Department Note ---
History of Present Illness General Chief complaint: Dehydration Time Seen by Provider: 01/01/24 13:32 Source: patient, RN notes reviewed and old records reviewed (12/29/23-cardiology visit for preop medical clearance) Mode of arrival: ambulatory Limitations: no limitations History of Present Illness This patient comes in feeling shaky and tingly all over for a week he says it comes and goes. He says it starts in his head and then goes to his arms and legs bilaterally. No headache. He feels numb when this occurs he says he gets better with Benadryl last over an hour if he does not do anything. Denies fever or shortness of breath at rest she does have some dyspnea on exertion. No chest pain no abdominal pain he is feeling anxious he had some nausea. he vomited once or twice no blood or coffee-ground emesis no diarrhea. He recently saw cardiology for preop medical clearance for hip surgery Home Medications Medication Instructions Recorded Confirmed Type aspirin 81 mg tablet,delayed 81 mg PO QAM 01/21/19 01/01/24 History release lorazepam 1 mg tablet 1 mg PO TID PRN Anxiety 03/22/20 01/01/24 History albuterol sulfate 90 mcg/actuation 2 puff inhalation Q6H PRN 12/11/22 01/01/24 Rx aerosol inhaler Shortness Of Breath Or Wheezing #18 grams atorvastatin 80 mg tablet (Lipitor) 80 mg PO QAM 02/09/23 01/01/24 History Portable Oxygen #1 ea 02/11/23 12/30/23 Rx ondansetron 4 mg disintegrating 4 mg PO Q6H PRN nausea and 11/26/23 01/01/24 Rx tablet vomiting #20 tabs acetaminophen 500 mg tablet 500 mg PO QID PRN Pain 12/04/23 01/01/24 History diclofenac sodium 75 mg 75 mg PO QAM 12/04/23 01/01/24 History tablet,delayed release metoprolol succinate 25 mg 25 mg PO QAM 12/04/23 01/01/24 History tablet,extended release 24 hr potassium chloride 20 mEq 20 meq PO BID 12/04/23 01/01/24 History tablet,extended release sertraline 25 mg tablet 25 mg PO BID 12/04/23 01/01/24 History pantoprazole 40 mg tablet,delayed 40 mg PO BID #60 tabs 12/08/23 01/01/24 Rx release (Protonix) bumetanide 1 mg tablet 1 mg PO DAILY PRN weight gain #30 12/09/23 01/01/24 Rx tabs Discontinue DME #1 ea 12/25/23 12/30/23 Rx fluticasone propionate 50 1 spray intranasal DAILY PRN 01/01/24 01/01/24 History mcg/actuation nasal Congestion spray,suspension losartan 50 mg tablet 50 mg PO QAM 01/01/24 01/01/24 History nitroglycerin 0.4 mg sublingual 0.4 mg sublingual DIRECTED PRN 01/01/24 01/01/24 History tablet (Nitrostat) Chest Pain sildenafil 25 mg tablet 0 mg PO DAILY PRN NEEDED PER PT 01/01/24 01/01/24 History Allergies Allergy/AdvReac Type Severity Reaction Status Date / Time cantaloupe Allergy Intermediate Rash Verified 01/01/24 16:21 ciprofloxacin Allergy Intermediate Rash, Verified 01/01/24 16:21 tunnel vision, loss of taste melon Allergy Intermediate Rash Verified 01/01/24 16:21 cimetidine AdvReac Intermediate Diaphoresis Verified 01/01/24 16:21 Past Med/Surg History Problem List (Updated 01/01/24 @ 19:56 by Stewart Cobb MD) Weakness (Acute) Acute hypokalemia (Acute) Hypocalcemia (Acute) Hypomagnesemia (Acute) Atrial fibrillation History of CHF (congestive heart failure) Diabetes mellitus, type 2 Diet controlled (previous Ozempic use) Hypocalcemia Hypokalemia Hypomagnesemia Shakiness (Acute) Osteoarthritis of left hip Dyslipidemia Complex renal cyst Left nephrolithiasis Chronic respiratory failure with hypoxia Follows with Dr Dias Recent PFT 12/2022 Hypersomnia Restrictive lung disease Diabetes mellitus type 2 in obese CAD (coronary artery disease), [place] coronary artery stent x1 (2006)- 2 attempts at [facility] > [place] [facility] [place]P total hip arthroplasty Localized osteoarthrosis of right hip Encounter for pre-operative examination History of skin cancer Hiatal hernia Osteoarthritis Hypertension Hyperlipidemia Medical History (Updated 01/01/24 @ 19:56 by Stewart Cobb MD) Pulmonary hypertension Echo 01/2023: Right atrial pressure 3mmhg Right heart cath 03/2023: "Moderate pulmonary hytertension (postcapillary)" Neuropathy left hand Osteoarthritis Hyperlipidemia Hypertension Diverticular disease Hx diverticulitis per records Hiatal hernia CAD (coronary artery disease) Stent x1 (2006) Hx MRSA infection 2020 > when had covid, and at present from recent wound culture 10/2023 Restrictive lung disease History of kidney stones On home oxygen therapy 1-2 lpm via NC prn (rare use) History of claustrophobia History of COVID-19 07/2020: hospitalized, ventilator support x 10 days at [facility]- Covid MRSA PNA Morbid obesity Anxiety History of heart attack 2006 Surgical History History of lithotripsy cysto, laser, stent (02/09/23): Grade 2 view, Glidescope#4, ETT 8, see anesthesia record for full details. Per post-op progress note 02/09/23, "pt arrived to pacu on 15L simple mask saturation of 88%. Pt was tachypneic. Pt was rhonchorus throughout. Pt given a DuoNeb with no improvement. Chest xray ordered which showed pulmonary edema. Pt had received two doses of 10mg Lasix. Pt continued to deteriorate. pt had been refusing bipap from the start of the day 2/2 claustrophobia. Preparations were made to intubate, but pt agreed to bipap. Pt began to improve on bipap. ABG was done after 25 mins on bip which showed CO2 of 77. Pt VSS on bipap. Pt will be admitted to the hospitalist service." Hx of decompression of ulnar nerve Left ulnar nerve decompression (10/24/21): LMA#5 at [facility] S/P hip replacement right History of cardiac cath 03/2023 ([facility])- no stents 2006- stent x1 (2 attempts at [facility] > [place] [facility] History of colonoscopy History of tooth extraction History of arthroscopy of left knee History of arthroscopy of right knee History of tonsillectomy History of skin cancer resection Family History Sister Family history of breast cancer Father Family history of leukemia Other Family history of skin cancer Social History Smoking Status: Former smoker Tobacco Type: Cigarettes Age Started Using Tobacco: 14; Age Quit Using Tobacco: 51; packs per day: 0.5; Cigarettes Per Day: ~1/2 PPD x 25 YEARS; Second Hand Exposure: No; Do You Dip or Chew Tobacco: No; Hx Alcohol Use: No Hx Substance Use: No Preferred Language: German Communication Ability: Effective Health Policy Nurse Required: No Beliefs That Will Affect Care: None marital status: Current Living Situation: Spouse Feels Safe at Home: Yes Safety Concerns: Feels Safe At This Time Assistive Devices: Cane and Glasses Review of Systems A total of 10 systems reviewed and were otherwise negative Physical Exam Vital Signs Vital Signs - 24 hr 01/01/24 13:11 01/01/24 14:09 01/01/24 15:00 Temperature 36.5 C Temperature Source Oral Pulse Rate 90 108 H Pulse Rate [Apical] 79 Respiratory Rate 15 25 H Blood Pressure 147/96 H Blood Pressure [Right Arm] 105/75 Blood Pressure Mean 113 Blood Pressure Mean [Right Arm] 85 Pulse Oximetry 98 98 Oxygen Delivery Method Room Air Room Air Sepsis Recent Fever Within 48 Hours No Sepsis New/Unexplained Change in Mental Status No Sepsis Action Taken by Nursing No Action Required 01/01/24 15:00 Temperature Temperature Source Pulse Rate Pulse Rate [Apical] Respiratory Rate Blood Pressure Blood Pressure [Right Arm] Blood Pressure Mean Blood Pressure Mean [Right Arm] Pulse Oximetry Oxygen Delivery Method Room Air Sepsis Recent Fever Within 48 Hours Sepsis New/Unexplained Change in Mental Status Sepsis Action Taken by Nursing General: Well developed well nourished older male who appears mildly shaky but in no acute distress, breathing comfortably on room air. Normal speech HEENT: Normal cephalic atraumatic. Pupils are equal round and reactive to light. Extraocular movements are intact. Oropharynx is pink with moist mucous membranes. No swelling of the mouth lips or tongue. Neck: Supple with a midline trachea. No meningeal signs or stiffness, no JVD or bruits. No Stridor. Chest: Clear to auscultation bilaterally. No wheezes or rhonchi. No increased work of breathing. Heart: Regular rate and rhythm without murmurs or gallops. Abdomen: Soft nontender, nondistended without rebound guarding or rigidity. Extremities: No cyanosis clubbing or edema. No calf tenderness or assymetry Spine/Back. Non tender to palpation. No CVA tenderness Skin: Good turgor without rashes. Neurologic exam: Cranial nerves two through 12 are intact. Motor and sensation are intact and symmetrical throughout. Course Administered Medications Magnesium Sulfate/Dextrose (Magnesium Sulfate / D5w) 1 gm in 100 mls @ 50 mls/hr IV Q2H PIERRE Stop: 01/01/24 23:14 Last Admin: 01/01/24 18:52 Dose: 50 mls/hr Documented By: BLANCA Potassium Chloride (K Mahendra / Wtr) 10 meq in 100 mls @ 100 mls/hr IV Q1H PIERRE Stop: 01/01/24 20:29 Last Admin: 01/01/24 18:51 Dose: 100 mls/hr Documented By: BLANCA Insulin Aspart (Insulin Aspart Per Unit Charge) 0 units SC ACHS PIERRE Stop: 01/31/24 18:32 Last Admin: 01/01/24 18:52 Dose: Not Given Documented By: BLANCA Discontinued Medications Sodium Chloride (Nss) 500 mls @ 999 mls/hr IV .Q31M STA Stop: 01/01/24 14:10 Last Infusion: 01/01/24 14:29 Dose: Infused Documented By: Admin: 01/01/24 13:58 Dose: 999 mls/hr Documented By: EVERARDO Calcium Gluconate () 1,000 mg in 60 mls @ 240 mls/hr IV NOW STA Stop: 01/01/24 14:38 Last Infusion: 01/01/24 14:59 Dose: Infused Documented By: Admin: 01/01/24 14:37 Dose: 240 mls/hr Documented By: TODD Magnesium Sulfate/Dextrose (Magnesium Sulfate / D5w) 1 gm in 100 mls @ 200 mls/hr IV Q30M PIERRE Stop: 01/01/24 15:29 Last Infusion: 01/01/24 16:58 Dose: Infused Documented By: Admin: 01/01/24 16:07 Dose: 200 mls/hr Documented By: Infusion: 01/01/24 15:08 Dose: Infused Documented By: Admin: 01/01/24 14:38 Dose: 200 mls/hr Documented By: TODD Lorazepam (Lorazepam 1 Mg Tab) 1 mg SL NOW STA Stop: 01/01/24 14:09 Last Admin: 01/01/24 14:19 Dose: 1 mg Documented By: BMK Potassium Chloride (Potassium Chloride Crtab 20 Meq Tabcr) 40 meq PO NOW STA Stop: 01/01/24 14:25 Last Admin: 01/01/24 14:36 Dose: 40 meq Documented By: Medical Decision Making Differential Diagnosis Electrolyte or metabolic abnormality, cardiac disease, dehydration, anxiety, rhabdomyolysis, medication side effect, infection Medical Records Attestation: I reviewed the patient's medical records. Home Medications Current Medication List: was personally reviewed by me Laboratory Data Attestation: I reviewed the patient's lab results. 01/01/24 13:15 01/01/24 16:43 Lab Results 01/01/24 01/01/24 01/01/24 Range/Units 13:15 14:08 14:40 WBC 9.02 (4.8-10.8) K/ul RBC 3.69 L (4.70-6.10) M/uL Hgb 11.8 L (14.0-18.0) g/dl Hct 34.4 L (42.0-52.0) % MCV 93.2 (80.0-100.0) fL MCH 32.0 (25.0-34.0) pg MCHC 34.3 (32.0-36.0) g/dL RDW Std Deviation 51.9 H (36.4-46.3) fL RDW Coeff of Fernanda 15.1 H (11.5-14.5) % Plt Count 164 (130-400) K/uL MPV 11.3 (9.4-12.4) fL Immature Gran % (Auto) 0.4 % Neut % (Auto) 70.7 % Lymph % (Auto) 14.9 % Rock % (Auto) 12.3 % Eos % (Auto) 0.9 % Baso % (Auto) 0.8 % Neut # (Auto) 6.38 (1.40-6.50) K/uL Lymph # (Auto) 1.34 (1.20-3.40) K/uL Rock # (Auto) 1.11 H (0.11-0.59) K/uL Eos # (Auto) 0.08 (0.00-0.50) K/uL Baso # (Auto) 0.07 (0.00-0.20) K/uL Immature Gran # (Auto) 0.04 (0.01-0.20) K/uL PT 13.5 H (9.0-12.0) Seconds INR 1.3 H (0.9-1.1) APTT 28 (21-31) Seconds PTT Ratio 1.0 Sodium 141 (136-145) mmol/L Potassium 3.0 L (3.5-5.1) mmol/L Chloride 102 (98-107) mmol/L Carbon Dioxide 22 (21-32) mmol/L Anion Gap 17 H (3-11) BUN 12 (6-23) mg/dl Creatinine 1.17 (0.6-1.4) mg/dl Est Cr Clr Drug Dosing 61.7 ml/min Est GFR ( Amer) 72.8 ml/min Est GFR (Non-Af Amer) 62.8 ml/min BUN/Creatinine Ratio 10.3 (10-20) Glucose 92 (70-99(Fasting)) mg/dl Calcium 5.9 L* (8.6-10.3) mg/dl Ionized Calcium 0.63 L* (1.12-1.32) mmol/L Magnesium 0.5 L* (1.7-2.4) mg/dl Total Bilirubin 1.1 H (0.2-1.0) mg/dl AST 26 (13-39) U/L ALT 23 (7-52) U/L Alkaline Phosphatase 64 (34-104) U/L Total Creatine Kinase 735 H (30-223) U/L Troponin I High Sens 16.1 (0-20) pg/ml Total Protein 6.8 (6.0-8.3) gm/dl Albumin 4.0 (3.4-5.0) gm/dl Globulin 2.8 (2.5-4.0) gm/dl Albumin/Globulin Ratio 1.4 (0.9-2) Lipase 67 (11-82) U/L SARS-CoV-2, RNA, NAAT NEGATIVE (NEGATIVE) Imaging Data Attestation: I personally reviewed and interpreted this imaging study as follows: My Impression: Chest x-raycardiomegaly but no acute infiltrate, failure, pneumothorax seen Radiologist's Impression: Chest X-Ray 01/01/24 13:40 XR chest 1V portable HISTORY: Chest pain, nonspecific COMPARISON: Chest 02/10/2023 FINDINGS: No pneumothorax. No pleural effusions. The cardiac silhouette is mildly enlarged. Calcifications again noted within the aortic knob. Calcified granuloma within the left lower lobe, unchanged. Calcified granuloma within the right lung apex. No new focal lung consolidations to suggest a pneumonia. Mild interstitial thickening is noted. This is likely chronic. No evidence for pulmonary edema. Calcified left hilar lymph nodes again noted. IMPRESSION: 1. No acute process within the chest. 2. Stable cardiomegaly and mild chronic interstitial thickening again noted. ACT 112: Negative or not required by law. Electronically signed by: Gwyn Shaw M.D. 01/01/2024 2:16 PM ECG Data Attestation: I personally reviewed and interpreted this ECG as follows: Indication: + weakness Rate (beats per minute): 92 Rhythm: + normal sinus and + other (Very poor baseline and difficult to interpret) ECG Intervals/blocks: + Normal QRS and + Prolonged QT ECG [place]: + Normal ECG ST segments: + Normal ST segments ECG Findings: + PACs and + PVCs Comparison ECG Date: from (12/09/2023) [facility] Narrative This patient comes in after not feeling well for a week he is feeling tingly all over. It is nonfocal and there is nothing to suggest central neurologic process at this point. IV access was established she was gently hydrated 500 cc bolus given his history of CHF. Multiple blood testing was obtained chest x-ray and EKG were obtained he was reassessed frequently. He was feeling very anxious was given Ativan 1 mg sublingual he takes his 3 times a day he tells me. EKG is very difficult to interpret due to his shakiness but there is no ST segment elevation. I think it is sinus with ectopy but it is hard to tell looking back at his old EKGs his P waves are very small at baseline. His electrolytes came back significantly abnormal with a magnesium of 0.5 and a calcium of 5.9. His potassium is also low at 3.0 I did replete this ordered 2 g of IV mag as well as 1000 mg of IV calcium gluconate I did give him 40 mill colons of potassium p.o. Chest x-ray is unremarkable. His COVID testing is negative. CK is mildly elevated at 700 but I do not think he likely has rhabdo at this point. I do think he needs to be admitted for further treatment evaluations and repletion of his electrolytes. I have discussed the case at length in consultation with the [facility] hospitalist and the patient will be admitted to their service Continuous cardiac monitoring: Orders placed in EMR for continuous cardiac monitoring: Upon my independent evaluation, the patient was noted to have normal sinus rhythm with frequent PACs and a rate of 83 Impression & Plan Shakiness, Hypomagnesemia, Hypocalcemia, Acute hypokalemia, Weakness Discharge Plan Visit Data Chief Complaint: Dehydration ED Provider: Stewart Cobb Discharge Problem: Shakiness, Hypomagnesemia, Hypocalcemia, Acute hypokalemia, Weakness Patient Disposition: Admitted As Inpatient Discharge Instructions Interventions: ED Discharge Assessment Last Done: 01/01/24 17:22
[2024-01-01 13:55] LABS: Basophils # (auto) 0.07 K/uL (0.00-0.20); Basophils % (auto) 0.8 %; Eosinophils # (auto) 0.08 K/uL (0.00-0.50); Eosinophils % (auto) 0.9 %; Hematocrit (blood only) 34.4 % (42.0-52.0); Hemoglobin 11.8 g/dl (14.0-18.0); Immature Granulocytes # (auto) 0.04 K/uL (0.01-0.20); Immature Granulocytes % (auto) 0.4 %; Lymphocytes # (auto) 1.34 K/uL (1.20-3.40); Lymphocytes % (auto) 14.9 %; Mean Corpuscular Hgb Conc 34.3 g/dL (32.0-36.0); Mean Corpuscular Volume 93.2 fL (80.0-100.0); Mean Platelet Volume 11.3 fL (9.4-12.4); Monocytes # (auto) 1.11 K/uL (0.11-0.59); Monocytes % (auto) 12.3 %; Neutrophils # (auto) 6.38 K/uL (1.40-6.50); Neutrophils % (auto) 70.7 %; Platelet Count 164 K/uL (130-400); RDW Coefficient of Variation 15.1 % (11.5-14.5); RDW Standard Deviation 51.9 fL (36.4-46.3); Red Blood Count 3.69 M/uL (4.70-6.10); White Blood Count 9.02 K/ul (4.8-10.8)
[2024-01-01] MEDS: SODIUM CHLORIDE 0.9% 500 ML IV STA (13:58)
[2024-01-01 14:17] LABS: INR 1.3 (0.9-1.1); Partial Thromboplastin Time 28 Seconds (21-31); Prothrombin Time 13.5 Seconds (9.0-12.0)
--- NOTE | 2024-01-01 14:18 | XRay Report ---
XR chest 1V portable HISTORY: Chest pain, nonspecific COMPARISON: Chest 02/10/2023 FINDINGS: No pneumothorax. No pleural effusions. The cardiac silhouette is mildly enlarged. Calcifica tions again noted within the aortic knob. Calcified granuloma within the left lower lobe, unchanged. Calcified granuloma within the right lung apex. No new focal lung consolidations to suggest a pneumon ia. Mild interstitial thickening is noted. This is likely chronic. No evidence for pulmonary edema. C alcified left hilar lymph nodes again noted. IMPRESSION: 1. No acute process within the chest. 2. Stable cardiomegaly and mild chronic interstitial thickening again noted. ACT 112: Negative or not required by law. Electronically signed by: Gwyn Shaw M.D. 01/01/2024 2:16 PM
[2024-01-01] MEDS: LORazepam 1 MG TAB SL STA (14:19)
[2024-01-01 14:21] LABS: Albumin Globulin Ratio 1.4 (0.9-2); BUN Creatinine Ratio 10.3 (10-20); Bilirubin,Total 1.1 mg/dl (0.2-1.0); Calcium 5.9 mg/dl (8.6-10.3); Creatinine Clr Calc Pharmacy 61.7 ml/min; Est GFR (African American) 72.8 ml/min; Est GFR (Non-African American) 62.8 ml/min; Globulin 2.8 gm/dl (2.5-4.0); Magnesium 0.5 mg/dl (1.7-2.4); Total Protein 6.8 gm/dl (6.0-8.3); Troponin I High Sensitivity 16.1 pg/ml (0-20)
[2024-01-01] MEDS ORDERED: MAGNESIUM SULFATE / D5W 1 GM/100 ML BAG IV SCH (14:22)
[2024-01-01] MEDS: POTASSIUM CHLORIDE CRTAB 20 MEQ TABCR PO STA (14:36)
[2024-01-01] MEDS: CALCIUM GLUCONATE 1,000 MG/60 ML BAG IV STA (14:37)
[2024-01-01] MEDS: MAGNESIUM SULFATE / D5W 1 GM/100 ML BAG IV SCH ×2 (14:38→18:52)
--- NOTE | 2024-01-01 14:47 | History & Physical Report ---
Date of Service January 01, 2024 Assessment & Plan (1) Hypomagnesemia: Plan: Patient presented for numbness and tingling in the head and arms bilaterally on 12/31 Magnesium 0.5 on arrival Magnesium sulfate 1 g IV x 5 Trend Mag q4h Continue repletion Urine electrolytes ordered to assess for potential electrolyte wasting Nephrology consulted A.m. CBC, BMP, mag (2) Hypocalcemia: Plan: Calcium 5.9 on arrival with albumin at 4.0 Calcium gluconate 3 ampules given Calcitriol 0.25 mcg QAM Continue repletion (3) Hypokalemia: Plan: K 3.0 on arrival K riders 10mEq x 3 Potassium chloride 40mEq p.o. TID Trend BMP q4h (4) Atrial fibrillation: Plan: EKG on arrival showed A-fib; rate controlled No prior history of A-fib Suspect secondary to electrolyte deficiencies Clinically, patient denies any chest pain, chest palpitations, or SOB [id number] score: 5 Patient reports that he has left hip surgery on 01/[address] Miller Denies hx of GI bleeds or bleeding disorders Heparin IV low-dose no bolus (will defer Eliquis in the event patient is still able to have surgery, although may need to re-schedule) Echocardiogram scheduled for the morning of 01/01 Continuous telemetry monitoring (5) History of CHF (congestive heart failure): Plan: Patient reports he has been taking his Bumex 1 mg as needed (every 3-4 days) Hold Bumex for now Last echo on 02/09/2023 revealed LVEF at 55-60% Daily weights Heart healthy diet (6) Diabetes mellitus, type 2: Plan: Last A1c at 6.4% on SSI; with target BSG range 110-140mg/dL, CF 50, carb ratio 15 T2DM diet BSG ACHS Adjust regimen as needed (7) H/O metabolic acidosis with increased anion gap: Plan: Anion gap 17-->13 on arrival Presumed metabolic acidosis based on gap Lactate ordered, pending ABG ordered, pending (8) CAD (coronary artery disease), [place] coronary artery: Plan: Previous TX in 2006 s/p CARSON x 1 to mid RCA Continue aspirin, metoprolol, atorvastatin (9) Shakiness: (10) Hyperlipidemia: (11) Hypertension: Plan Disposition: Admit to PCU telemetry Full code Heart healthy, T2DM diet VTE PPx: Heparin IV low-dose no bolus History of Present Illness Chief Complaint: Numbness and tingling in the head and arms bilaterally Primary Care Provider: eDacon Jorgensen MD Yovani is a 68yo M with PMH of HTN, HLD, osteoarthritis, skin cancer, CAD, T2DM, restrictive lung disease, chronic respiratory failure with hypoxia, and hypers omnia. He presented on 12/31 for intermittent numbness and swelling in his head and upper extremities bilaterally x 1.5 weeks. Patient first noticed a problem while he was out at [place]. He would have numbness and tingling from the back of his head that extends down to his jaw and then down both arms bilaterally lasting for about 30 minutes at a time. This has gradually worsened, and increased in frequency to about 45 times daily. Patient started taking Benadryl at home to calm down his symptoms. He also endorses muscle tightening and contractures in his hands. UTD on tetanus. He was recently admitted to the hospital for low magnesium several weeks ago, but prior to this he had no prior history of low mag. Patient did not take his regular morning medications today due to nausea. He manages his own medicine at home. He was recently on diclofenac 25 mg daily x 4 years, but recently took him off it for left hip replacement. Patient notes that at home with his and 2 grown children. Patient also missed his last 2 doses of potassium chloride supplements. He denies any history of kidney disease, but did have 2 kidney stones 6 months ago and was hospitalized. He reports he has a history of dehydration and anxiety. Patient denies history of heavy alcohol use; last alcoholic drink was 1.5 weeks ago in [place]. Former tobacco cigarette smoker, but quit in 2003. Regarding Bumex, he did take 1 tablet of 1 mg of Bumex yesterday, but reports he does not use it regularly. He does report he has a history of CHF, but only takes Bumex every few days as needed for leg swelling. No recent change in diet. He watches his salt intake. He denies smoking/tobacco use. Patient is hypertensive at 147/96 and tachycardic at 108 bpm at time of admission. ED course: Magnesium sulfate 1 g IV x 2 NSS 500 mL IV Ativan 1 mg SL Calcium gluconate 1000 mg IV Potassium chloride 40mEq p.o. ROS: Patient endorses dizziness, lightheadedness, fatigue, numbness and tingling down the arms, shooting pain down his leg (which may be secondary to sciatica), abdominal cramping, and nausea/vomiting x 2 episodes on 12/31 Patient denies fever, chills, night sweats, headache, changes in vision, chest pain, SOB, pleuritic CP, cough, diarrhea, or change in urinary/bowel habits. Allergies Allergy/AdvReac Type Severity Reaction Status Date / Time cantaloupe Allergy Intermediate Rash Verified 01/01/24 16:21 ciprofloxacin Allergy Intermediate Rash, Verified 01/01/24 16:21 tunnel vision, loss of taste melon Allergy Intermediate Rash Verified 01/01/24 16:21 cimetidine AdvReac Intermediate Diaphoresis Verified 01/01/24 16:21 Home Medications Medication Instructions Recorded Confirmed Type aspirin 81 mg tablet,delayed 81 mg PO QAM 01/21/19 01/01/24 History release lorazepam 1 mg tablet 1 mg PO TID PRN Anxiety 03/22/20 01/01/24 History albuterol sulfate 90 mcg/actuation 2 puff inhalation Q6H PRN 12/11/22 01/01/24 Rx aerosol inhaler Shortness Of Breath Or Wheezing #18 grams atorvastatin 80 mg tablet (Lipitor) 80 mg PO QAM 02/09/23 01/01/24 History Portable Oxygen #1 ea 02/11/23 12/30/23 Rx ondansetron 4 mg disintegrating 4 mg PO Q6H PRN nausea and 11/26/23 01/01/24 Rx tablet vomiting #20 tabs acetaminophen 500 mg tablet 500 mg PO QID PRN Pain 12/04/23 01/01/24 History diclofenac sodium 75 mg 75 mg PO QAM 12/04/23 01/01/24 History tablet,delayed release metoprolol succinate 25 mg 25 mg PO QAM 12/04/23 01/01/24 History tablet,extended release 24 hr potassium chloride 20 mEq 20 meq PO BID 12/04/23 01/01/24 History tablet,extended release sertraline 25 mg tablet 25 mg PO BID 12/04/23 01/01/24 History pantoprazole 40 mg tablet,delayed 40 mg PO BID #60 tabs 12/08/23 01/01/24 Rx release (Protonix) bumetanide 1 mg tablet 1 mg PO DAILY PRN weight gain #30 12/09/23 01/01/24 Rx tabs Discontinue DME #1 ea 12/25/23 12/30/23 Rx fluticasone propionate 50 1 spray intranasal DAILY PRN 01/01/24 01/01/24 History mcg/actuation nasal Congestion spray,suspension losartan 50 mg tablet 50 mg PO QAM 01/01/24 01/01/24 History nitroglycerin 0.4 mg sublingual 0.4 mg sublingual DIRECTED PRN 01/01/24 01/01/24 History tablet (Nitrostat) Chest Pain sildenafil 25 mg tablet 0 mg PO DAILY PRN NEEDED PER PT 01/01/24 01/01/24 History Past Med/Surg History Problem List (Updated 01/01/24 @ 20:14 by AARON BarlowC) H/O metabolic acidosis with increased anion gap Weakness (Acute) Acute hypokalemia (Acute) Hypocalcemia (Acute) Hypomagnesemia (Acute) Atrial fibrillation History of CHF (congestive heart failure) Diabetes mellitus, type 2 Diet controlled (previous Ozempic use) Hypocalcemia Hypokalemia Hypomagnesemia Shakiness (Acute) Osteoarthritis of left hip Dyslipidemia Complex renal cyst Left nephrolithiasis Chronic respiratory failure with hypoxia Follows with Dr Dias Recent PFT 12/2022 Hypersomnia Restrictive lung disease Diabetes mellitus type 2 in obese CAD (coronary artery disease), [place] coronary artery stent x1 (2006)- 2 attempts at [facility] > transferred to [facility] for stent placement S/P total hip arthroplasty Localized osteoarthrosis of right hip Encounter for pre-operative examination History of skin cancer Hiatal hernia Osteoarthritis Hypertension Hyperlipidemia Medical History (Updated 01/01/24 @ 20:14 by AARON BarlowC) Pulmonary hypertension Echo 01/2023: Right atrial pressure 3mmhg Right heart cath 03/2023: "Moderate pulmonary hytertension (postcapillary)" Neuropathy left hand Osteoarthritis Hyperlipidemia Hypertension Diverticular disease Hx diverticulitis per records Hiatal hernia CAD (coronary artery disease) Stent x1 (2006) Hx MRSA infection 2020 > when had covid, and at present from recent wound culture 10/2023 Restrictive lung disease History of kidney stones On home oxygen therapy 1-2 lpm via NC prn (rare use) History of claustrophobia History of COVID-19 07/2020: hospitalized, ventilator support x 10 days at [facility]- Covid MRSA PNA Morbid obesity Anxiety History of heart attack 2006 Surgical History History of lithotripsy cysto, laser, stent (02/09/23): Grade 2 view, Glidescope#4, ETT 8, see anesthesia record for full details. Per post-op progress note 02/09/23, "pt arrived to pacu on 15L simple mask saturation of 88%. Pt was tachypneic. Pt was rhonchorus throughout. Pt given a DuoNeb with no improvement. Chest xray ordered which showed pulmonary edema. Pt had received two doses of 10mg Lasix. Pt continued to deteriorate. pt had been refusing bipap from the start of the day 2/2 claustrophobia. Preparations were made to intubate, but pt agreed to bipap. Pt began to improve on bipap. ABG was done after 25 mins on bip which showed CO2 of 77. Pt VSS on bipap. Pt will be admitted to the hospitalist service." Hx of decompression of ulnar nerve Left ulnar nerve decompression (10/24/21): LMA#5 at [facility] S/P hip replacement right History of cardiac cath 03/2023 ([facility])- no stents 2006- stent x1 (2 attempts at [facility] > transferred to [facility] for stent placement) History of colonoscopy History of tooth extraction History of arthroscopy of left knee History of arthroscopy of right knee History of tonsillectomy History of skin cancer resection Family History Sister Family history of breast cancer Father Family history of leukemia Other Family history of skin cancer Social History Smoking Status: Former smoker Tobacco Type: Cigarettes Age Started Using Tobacco: 14; Age Quit Using Tobacco: 51; packs per day: 0.5; Cigarettes Per Day: ~1/2 PPD x 25 YEARS; Second Hand Exposure: No; Do You Dip or Chew Tobacco: No; Hx Alcohol Use: No Hx Substance Use: No Preferred Language: Serbian Communication Ability: Effective What Job Titles Mean Required: No Beliefs That Will Affect Care: None marital status: Current Living Situation: Spouse Feels Safe at Home: Yes Safety Concerns: Feels Safe At This Time Assistive Devices: Cane and Glasses Review of Systems Review of Systems: See HPI above Physical Exam Physical Exam: General: no acute distress; non-toxic appearing; well-nourished; cooperative HEENT: normocephalic, atraumatic; no scleral icterus; PERRLA w/ EOMs intact; vision and hearing grossly intact Neck: supple; no lymphadenopathy; trachea midline Skin: warm, dry without signs of tenting; no cyanosis; no rashes, bruising, lesions, or erythema noted CV: chest wall NTP; irregularly irregular rhythm; S1/S2 normal; no murmurs/rubs/gallops; pulses intact and symmetric at radial, DP, and PT Lungs: no acute respiratory distress; symmetrical chest wall expansion; clear breath sounds across all lung muñoz w/o adventitious sounds; no wheezing ABD: Soft, NTP; BS present; no rebound/guarding; no distention MSK: no tics or fasciculations; no edema noted in the LEs b/l, nonerythematous; 3/5 cabinetmaker helper strength in the right hand; 5/5 cabinetmaker helper strength in the left hand Neuro: A&Ox3; normal mood and affect; fluent speech; no focal deficits; sensation is intact and symmetric in the lower extremities bilaterally; patient reports station in the left hand compared to the right Results & Data Results & Data Vital Signs (Past 12 Hours) Vital Signs Temp Pulse Resp BP Pulse Ox O2 Del Method 01/01/24 14:09 108 H 01/01/24 13:11 36.5 C 90 15 147/96 H 98 Room Air Laboratory Results Abnormal lab results 01/01/24 Range/Units 13:15 RBC 3.69 L (4.70-6.10) M/uL Hgb 11.8 L (14.0-18.0) g/dl Hct 34.4 L (42.0-52.0) % RDW Std Deviation 51.9 H (36.4-46.3) fL RDW Coeff of Fernanda 15.1 H (11.5-14.5) % Treasure # (Auto) 1.11 H (0.11-0.59) K/uL PT 13.5 H (9.0-12.0) Seconds INR 1.3 H (0.9-1.1) Potassium 3.0 L (3.5-5.1) mmol/L Anion Gap 17 H (3-11) Calcium 5.9 L* (8.6-10.3) mg/dl Magnesium 0.5 L* (1.7-2.4) mg/dl Total Bilirubin 1.1 H (0.2-1.0) mg/dl Total Creatine Kinase 735 H (30-223) U/L Diagnostic Findings Chest X-Ray 01/01/24 13:40 XR chest 1V portable HISTORY: Chest pain, nonspecific COMPARISON: Chest 02/10/2023 FINDINGS: No pneumothorax. No pleural effusions. The cardiac silhouette is mildly enlarged. Calcifications again noted within the aortic knob. Calcified granuloma within the left lower lobe, unchanged. Calcified granuloma within the right lung apex. No new focal lung consolidations to suggest a pneumonia. Mild interstitial thickening is noted. This is likely chronic. No evidence for pulmonary edema. Calcified left hilar lymph nodes again noted. IMPRESSION: 1. No acute process within the chest. 2. Stable cardiomegaly and mild chronic interstitial thickening again noted. ACT 112: Negative or not required by law. Electronically signed by: Gwyn Shaw M.D. 01/01/2024 2:16 PM ECG Additional Comments: ECG revealed A-fib with PVCs at 92 bpm; QTc 551 (caution use of QT prolonging agents) Code Status & VTE Plan Code Status Full code VTE Prophylaxis Plan VTE Prophylaxis will be ordered: Yes Supervising Physician Co-Signing Physician Notes Attending Attestation & Admit Note: Pt seen/examined, chart reviewed, admit care plan d/w JAY Vo. I agree w/ the almanzar components of his admission documentation. 68yo male with history of severe COVID pneumonia requiring intubation and development of subsequent mild fibrosis from such (2020), HTN, skin cancer, CAD, T2DM, restrictive lung disease, morbid obesity - presented with c/o paresthesias. Upon ER presentation found to have severe hypomagnesemia, hypocalcemia, and hypokalemia. Had had vomiting several weeks ago but nothing recent. Denies etoh use. Uses bumex prn not on daily basis. PPI was increased to BID dosing earlier in November, and had been on once daily use for a long time prior to that. Was using BID-TID diclofenac up until 1 week ago for hip arthritis (scheduled for THR on 01/07/24). No diarrhea. No other new meds of late. I saw patient in the PCU after admission and he was resting comfortably. Tele with severe ectopy. 12-lead EKG - NSR with ectopy, no a.fib, prolonged QTc. PMH/PSH/allergies/meds/sochx/famhx - reviewed VSS, afebrile, o2 sats wnl gen - NAD, sitting in chair comfortably neck - no JVD mouth - MMM heart - irregular, s1 s2, no murmur lungs - CTA b/l abd - soft NT ND BS+ ext - no edema, pulses 2+ b/l labs reviewed EKG - my reading - NSR with ectopy; varying RI intervals but no AV block, prolonged QTc, no ST changes A/P: 1. severe hypomagnesemia - replacing IV 2. severe hypocalcemia - replacing IV and will add PO supplementation ultimately 3. severe hypokalemia - replacing IV & PO 4. elevated anion gap 5. abnormal EKG - 2nd to #1/#2/#3 - no a.fib fortunately STOP PPI - can interfere with mag absorption STOP NSAIDs STOP diuretics underyling etiology? renal wasting syndrome? combination of factors? other? check urine electrolytes including urine Cl check ABG and lactate agree w/ nephrology consultation Joseph Cortés MD PG Care Time/CCT Total # of Minutes Spent Total Time Spent with Patient: Total time spent is greater than 50% in coordination of care (as documented) at patient's floor/unit and/or counseling patient: Coding [place] [address] INT INP/OBS CARE 3/75MIN Patient Type Established Medical Decision Making High Complexity Diagnoses Hypomagnesemia E83.42 Hypocalcemia E83.51 Hypokalemia E87.6 Atrial fibrillation I48.91 History of CHF (congestive heart failure) Z86.79 Diabetes mellitus, type 2 E11.9 H/O metabolic acidosis with increased anion gap Z86.39 CAD (coronary artery disease), [place] coronary artery I25.10 Shakiness R25.1 Hyperlipidemia E78.5 Hypertension I10
[2024-01-01 17:18] LABS: BUN Creatinine Ratio 10.8 (10-20); Calcium 5.8 mg/dl (8.6-10.3); Creatinine Clr Calc Pharmacy 65.1 ml/min; Est GFR (African American) 77.6 ml/min; Est GFR (Non-African American) 66.9 ml/min; Magnesium 1.1 mg/dl (1.7-2.4); Potassium 2.4 mmol/L (3.5-5.1)
[2024-01-01] MEDS ORDERED: GLUCOSE 10 TAB/TUBE PO PRN (18:33)
[2024-01-01] MEDS ORDERED: GLUCAGON FOR INJ 1 MG VIAL SQ PRN (18:33)
[2024-01-01] MEDS ORDERED: FLUTICASONE PROPIONATE NA SPR 16 GM BTL PRN (18:33)
[2024-01-01] MEDS ORDERED: ALBUTEROL HFA 8 GM INHALER INH PRN (18:33)
[2024-01-01] MEDS ORDERED: GLUCOSE 40% GEL 15 GM TUBE PO PRN (18:33)
[2024-01-01] MEDS ORDERED: PROCHLORPERAZINE 5 MG in SYRINGE 4 ML IV PRN (18:33)
[2024-01-01] MEDS ORDERED: CARBOHYDRATES FOR HYPOGLYCEMIA PO PRN (18:33)
[2024-01-01] MEDS ORDERED: DEXTROSE 50% 50 ML SYRINGE IV PRN (18:33)
[2024-01-01] MEDS: POTASSIUM CHLORIDE / WTR 10 MEQ/100 ML PLCT IV SCH (18:51)
[2024-01-01] MEDS: INSULIN ASPART PER UNIT CHARGE SC SCH (18:52)
--- NOTE | 2024-01-01 18:57 | Electrocardiogram Report ---
Test Reason : Blood Pressure : / mmHG Vent. Rate : 092 BPM Atrial Rate : 000 BPM P-R Int : 000 ms QRS Dur : 074 ms QT Int : 446 ms P-R-T Axes : 000 -06 040 degrees QTc Int : 551 ms Poor data quality, interpretation may be adversely affected Possible Sinus rhythm with frequent Premature atrial complexes (artifact interferes with rhythm inter pretation) vs atrial fibrillation Premature ventricular complexes Possible Anterior infarct , age undetermined Nonspecific ST and T wave abnormality Abnormal ECG When compared with ECG of 09-DEC-2023 08:29, Artifact now interferes with rhythm interpretation Premature ventricular complexes are now Present Confirmed by Az Kerr ([id number]) on 01/01/2024 6:57:30 PM Referred By: REFERRED SELF Confirmed By:Az Kerr
[2024-01-01 20:21] LABS: Base Excess ABG -2.1 mEq/L (-9-1.8); HCO3 ABG 20 mmol/L (19-24); PCO2 ABG 25 mmHg (35-46); PO2 ABG 123 mmHg (80-95)
[2024-01-01] MEDS: CALCIUM GLUCONATE 1,000 MG/60 ML BAG IV SCH (20:40)
[2024-01-01 20:42] LABS: Allen Test Pos (Pos)
[2024-01-01] MEDS: SERTRALINE HCL 50 MG TABLET PO SCH (20:48)
[2024-01-01] MEDS: POTASSIUM CHLORIDE CRTAB 20 MEQ TABCR PO SCH (20:51)
[2024-01-01] MEDS: ACETAMINOPHEN 325 MG TAB PO PRN (20:52)
[2024-01-01] MEDS ORDERED: APIXABAN 5 MG TABLET PO SCH (21:00)
[2024-01-01] MEDS ORDERED: PANTOprazole 40 MG TAB PO SCH (21:00)
[2024-01-01] MEDS ORDERED: HEPARIN SOD 5,000 UNIT/0.5 ML VIAL SQ SCH (21:00)
[2024-01-01] MEDS: FAMOTIDINE 20 MG TAB PO SCH (21:08)
[2024-01-01] MEDS: Heparin IV Adult Wt-Based Low-Dose *NO* INITIAL Bolus Protocol IV STA (21:33)
[2024-01-01] MEDS: HEPARIN SODIUM/DEXTROSE 25,000 UNITS/500 ML BAG IV SCH (21:33)
[2024-01-01 22:10] LABS: Urine Potassium 72.9 mmol/L
[2024-01-01 22:26] LABS: Appearance Urine Cloudy (Clear); Bacteria Urine Automated None Seen (None Seen); Bilirubin Urine Negative (Negative); Blood Urine Negative (Negative); Color Urine Dark Yellow; Glucose Urine UA Negative (Negative); Hyaline Casts Urine Present /lpf (None Presnt); Ketones Urine Trace (Negative); Leukocyte Esterase Urine Trace (Negative); Mucus Urine Present (None Prsent); Nitrite Urine Negative (Negative); Protein Urine Trace (Negative); RBC Urine Automated 0-2 /hpf (0-2); Specific Gravity Urine 1.019 (1.000-1.030); Urobilinogen Urine Negative (Negative)
[2024-01-02 00:52] LABS: BUN Creatinine Ratio 9.8 (10-20); Calcium 6.4 mg/dl (8.6-10.3); Creatinine Clr Calc Pharmacy 72.2 ml/min; Est GFR (African American) 85.9 ml/min; Est GFR (Non-African American) 74.1 ml/min; Magnesium 1.7 mg/dl (1.7-2.4); Potassium 2.9 mmol/L (3.5-5.1)
[2024-01-02 01:28] LABS: Partial Thromboplastin Time 28 Seconds (21-31)
[2024-01-02] MEDS: MAGNESIUM SULFATE / D5W 1 GM/100 ML BAG IV SCH (01:55)
[2024-01-02] MEDS: CALCIUM GLUCONATE 1,000 MG/60 ML BAG IV SCH ×2 (02:00→08:30)
[2024-01-02] MEDS: POTASSIUM CHLORIDE CRTAB 20 MEQ TABCR PO STA ×2 (02:02→16:30)
[2024-01-02] MEDS: LORazepam 1 MG TAB PO PRN (04:09)
[2024-01-02 06:44] LABS: Basophils # (auto) 0.08 K/uL (0.00-0.20); Basophils % (auto) 0.9 %; Eosinophils # (auto) 0.05 K/uL (0.00-0.50); Eosinophils % (auto) 0.6 %; Hematocrit (blood only) 34.4 % (42.0-52.0); Hemoglobin 11.5 g/dl (14.0-18.0); Immature Granulocytes # (auto) 0.04 K/uL (0.01-0.20); Immature Granulocytes % (auto) 0.5 %; Lymphocytes # (auto) 0.86 K/uL (1.20-3.40); Lymphocytes % (auto) 9.7 %; Mean Corpuscular Hemoglobin 31.3 pg (25.0-34.0); Mean Corpuscular Hgb Conc 33.4 g/dL (32.0-36.0); Mean Corpuscular Volume 93.7 fL (80.0-100.0); Mean Platelet Volume 11.1 fL (9.4-12.4); Monocytes # (auto) 0.99 K/uL (0.11-0.59); Monocytes % (auto) 11.1 %; Neutrophils # (auto) 6.86 K/uL (1.40-6.50); Neutrophils % (auto) 77.2 %; Platelet Count 149 K/uL (130-400); RDW Coefficient of Variation 14.7 % (11.5-14.5); RDW Standard Deviation 51.5 fL (36.4-46.3); Red Blood Count 3.67 M/uL (4.70-6.10); White Blood Count 8.88 K/ul (4.8-10.8)
[2024-01-02 07:18] LABS: BUN Creatinine Ratio 9.6 (10-20); Calcium 6.6 mg/dl (8.6-10.3); Creatinine Clr Calc Pharmacy 78.2 ml/min; Est GFR (African American) 94.8 ml/min; Est GFR (Non-African American) 81.8 ml/min; Magnesium 2.4 mg/dl (1.7-2.4); Phosphorus 3.9 mg/dl (2.5-4.9); Potassium 2.9 mmol/L (3.5-5.1)
[2024-01-02] MEDS: POTASSIUM CHLORIDE CRTAB 20 MEQ TABCR PO SCH (08:33)
[2024-01-02] MEDS: CALCITRIOL 0.25 MCG CAPSULE PO SCH (08:33)
[2024-01-02] MEDS: ASPIRIN 81 MG ECTAB PO SCH (08:34)
[2024-01-02] MEDS: METOPROLOL SUCC 25MG EXT REL TAB PO SCH (08:34)
--- NOTE | 2024-01-02 08:34 | Nephrology Consultation ---
Date of Consultation January 02, 2024 Assessment & Plan (1) Weakness: * Multiple metabolic abnormalities related to recent Ozempic use, poor oral intake, nausea/vomiting and diarrhea. Patient is now symptomatically improved off Ozempic therapy. His hypocalcemia and hypokalemia are likely a direct result of his profound hypomagnesemia. (2) Hypomagnesemia: * Primary service is already repleted serum magnesium with IV supplementation. * Will order 24-hour urine magnesium to test for renal magnesium losses. * Will order Slow-Mag 64 mg 1 tablet twice daily * Recheck serum magnesium in a.m. (3) Hypocalcemia: * Will order vitamin D, PTH * Change Rocaltrol to OTC vitamin D 2000 units daily (4) Hypokalemia: * In part related to bumetanide therapy * Stop KCl * Volume status is acceptable, but BP remains mildly elevated. Start sp ironolactone 25 mg daily History of Present Illness Reason for Consultation: Hypomagnesemia, hypocalcemia, hypokalemia Attending Physician: Joseph Cortés MD History of Present Illness Mr. Herrera is a 68-year-old white male who is seen at the request of Dr. Darling for evaluation of multiple electrolyte abnormalities. Information for the HPI is obtained from direct patient interview and review of the EMR. 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 His medical history is significant for obesity, AODM, pulmonary hypertension, hyperlipidemia, HTN and ASCVD. He denies any prior history of CKD or electrolyte imbalance. 4 months ago Mr. Herrera states that he was started on Ozempic. He reports a dramatic weight loss. Unfortunately this was accompanied by severe GI dysmotility resulting in recurrent nausea, vomiting and diarrhea. He was hospitalized 12/07/2023 - 12/08/2023 due to hypomagnesemia. This corrected with IV supplementation. Patient discontinued Ozempic. He reports that since that time he has had poor oral intake and continued intermittent diarrhea. Over the last week and a half he has suffered from progressive weakness, paresthesias and muscle cramping. Last evening he was seen in the emergency department where laboratory studies revealed magnesium 0.5, calcium 5.9, albumin 4.0, potassium 3.0, CPK 700. Mr. Herrera has been admitted to the hospitalist service for correction of his multiple electrolyte abnormalities. He reports that as an outpatient he was not taking any magnesium supplement. He was taking [id number] calcium. He has a history of lower extremity swelling. He is on bumetanide therapy on a as needed basis and does take a potassium supplement. He is now subjectively improved. He has paresthesias have resolved. His muscle weakness has improved. Allergies Allergy/AdvReac Type Severity Reaction Status Date / Time cantaloupe Allergy Intermediate Rash Verified 01/01/24 16:21 ciprofloxacin Allergy Intermediate Rash, Verified 01/01/24 16:21 tunnel vision, loss of taste melon Allergy Intermediate Rash Verified 01/01/24 16:21 cimetidine AdvReac Intermediate Diaphoresis Verified 01/01/24 16:21 Home Medications Medication Instructions Recorded Confirmed Type aspirin 81 mg tablet,delayed 81 mg PO QAM 01/21/19 01/01/24 History release lorazepam 1 mg tablet 1 mg PO TID PRN Anxiety 03/22/20 01/01/24 History albuterol sulfate 90 mcg/actuation 2 puff inhalation Q6H PRN 12/11/22 01/01/24 Rx aerosol inhaler Shortness Of Breath Or Wheezing #18 grams atorvastatin 80 mg tablet (Lipitor) 80 mg PO QAM 02/09/23 01/01/24 History Portable Oxygen #1 ea 02/11/23 12/30/23 Rx ondansetron 4 mg disintegrating 4 mg PO Q6H PRN nausea and 11/26/23 01/01/24 Rx tablet vomiting #20 tabs acetaminophen 500 mg tablet 500 mg PO QID PRN Pain 12/04/23 01/01/24 History diclofenac sodium 75 mg 75 mg PO QAM 12/04/23 01/01/24 History tablet,delayed release metoprolol succinate 25 mg 25 mg PO QAM 12/04/23 01/01/24 History tablet,extended release 24 hr potassium chloride 20 mEq 20 meq PO BID 12/04/23 01/01/24 History tablet,extended release sertraline 25 mg tablet 25 mg PO BID 12/04/23 01/01/24 History pantoprazole 40 mg tablet,delayed 40 mg PO BID #60 tabs 12/08/23 01/01/24 Rx release (Protonix) bumetanide 1 mg tablet 1 mg PO DAILY PRN weight gain #30 12/09/23 01/01/24 Rx tabs Discontinue DME #1 ea 12/25/23 12/30/23 Rx fluticasone propionate 50 1 spray intranasal DAILY PRN 01/01/24 01/01/24 History mcg/actuation nasal Congestion spray,suspension losartan 50 mg tablet 50 mg PO QAM 01/01/24 01/01/24 History nitroglycerin 0.4 mg sublingual 0.4 mg sublingual DIRECTED PRN 01/01/24 01/01/24 History tablet (Nitrostat) Chest Pain sildenafil 25 mg tablet 0 mg PO DAILY PRN NEEDED PER PT 01/01/24 01/01/24 History Patient History Medical History Pulmonary hypertension Echo 01/2023: Right atrial pressure 3mmhg Right heart cath 03/2023: "Moderate pulmonary hytertension (postcapillary)" Neuropathy left hand Osteoarthritis Hyperlipidemia Hypertension Diverticular disease Hx diverticulitis per records Hiatal hernia CAD (coronary artery disease) Stent x1 (2006) Hx MRSA infection 2020 > when had covid, and at present from recent wound culture 10/2023 Restrictive lung disease History of kidney stones On home oxygen therapy 1-2 lpm via NC prn (rare use) History of claustrophobia History of COVID-19 07/2020: hospitalized, ventilator support x 10 days at [facility]- Covid MRSA PNA Morbid obesity Anxiety History of heart attack 2006 Surgical History History of lithotripsy cysto, laser, stent (02/09/23): Grade 2 view, Glidescope#4, ETT 8, see anesthesia record for full details. Per post-op progress note 02/09/23, "pt arrived to pacu on 15L simple mask saturation of 88%. Pt was tachypneic. Pt was rhonchorus throughout. Pt given a DuoNeb with no improvement. Chest xray ordered which showed pulmonary edema. Pt had received two doses of 10mg Lasix. Pt continued to deteriorate. pt had been refusing bipap from the start of the day 2/2 claustrophobia. Preparations were made to intubate, but pt agreed to bipap. Pt began to improve on bipap. ABG was done after 25 mins on bip which showed CO2 of 77. Pt VSS on bipap. Pt will be admitted to the hospitalist service." Hx of decompression of ulnar nerve Left ulnar nerve decompression (10/24/21): LMA#5 at [facility] S/P hip replacement right History of cardiac cath 03/2023 ([facility])- no stents 2006- stent x1 (2 attempts at [facility] > transferred to [facility] for stent placement) History of colonoscopy History of tooth extraction History of arthroscopy of left knee History of arthroscopy of right knee History of tonsillectomy History of skin cancer resection Family History Sister Family history of breast cancer Father Family history of leukemia Other Family history of skin cancer Social History Smoking Status: Former smoker Tobacco Type: Cigarettes Age Started Using Tobacco: 14; Age Quit Using Tobacco: 51; packs per day: 0.5; Cigarettes Per Day: ~1/2 PPD x 25 YEARS; Second Hand Exposure: No; Do You Dip or Chew Tobacco: No; Hx Alcohol Use: No Hx Substance Use: No Preferred Language: Sami Communication Ability: Effective 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 Home Health Required: No Beliefs That Will Affect Care: None marital status: Current Living Situation: Spouse Feels Safe at Home: Yes Safety Concerns: Feels Safe At This Time Assistive Devices: Cane and Glasses Review of Systems Constitutional: no fever Eyes: no problem reported Ear, Nose, Mouth, Throat: no problem reported Respiratory: no cough and no dyspnea Cardiovascular: no chest pain and no syncope Gastrointestinal: + nausea, + vomiting and + diarrhea/loos e stools Genitourinary: no dysuria, no hematuria or no flank pain Integumentary: no rash Neurologic: no problem reported Physical Exam Constitutional: not in distress Eyes: PERRL, conjunctivae normal, anicteric sclerae ENMT: external ear and nose normal, oropharynx normal Neck: trachea midline, no thyromegaly Respiratory: normal respiratory effort, lungs clear to auscultation Cardiovascular: RRR, no murmur, no edema Gastrointestinal (Abdomen): normal bowel sounds, soft, nontender, no hepatosplenomegaly Skin: no rashes, warm and dry Neurologic: Speech / Cognition: normal speech and normal cognition Psychiatric: Affect: euthymic affect Results & Data Vital Signs (Past 12 Hours) Vital Signs Temp Pulse Pulse Resp BP Pulse Ox O2 Del Method 01/02/24 03:00 36.6 C 72 18 129/67 98 Room Air 01/01/24 23:05 36.6 C 82 19 105/64 98 Room Air 01/01/24 23:00 90 Laboratory Results Laboratory Results WBC 8.88 K/ul (4.8-10.8) 01/02/24 06:18 RBC 3.67 M/uL (4.70-6.10) L 01/02/24 06:18 Hgb 11.5 g/dl (14.0-18.0) L 01/02/24 06:18 Hct 34.4 % (42.0-52.0) L 01/02/24 06:18 MCV 93.7 fL (80.0-100.0) 01/02/24 06:18 MCH 31.3 pg (25.0-34.0) 01/02/24 06:18 MCHC 33.4 g/dL (32.0-36.0) 01/02/24 06:18 RDW Std Deviation 51.5 fL (36.4-46.3) H 01/02/24 06:18 RDW Coeff of Fernanda 14.7 % (11.5-14.5) H 01/02/24 06:18 Plt Count 149 K/uL (130-400) 01/02/24 06:18 MPV 11.1 fL (9.4-12.4) 01/02/24 06:18 Immature Gran % (Auto) 0.5 % 01/02/24 06:18 Neut % (Auto) 77.2 % 01/02/24 06:18 Lymph % (Auto) 9.7 % 01/02/24 06:18 Bonner % (Auto) 11.1 % 01/02/24 06:18 Eos % (Auto) 0.6 % 01/02/24 06:18 Baso % (Auto) 0.9 % 01/02/24 06:18 Neut # (Auto) 6.86 K/uL (1.40-6.50) H 01/02/24 06:18 Lymph # (Auto) 0.86 K/uL (1.20-3.40) L 01/02/24 06:18 Bonner # (Auto) 0.99 K/uL (0.11-0.59) H 01/02/24 06:18 Eos # (Auto) 0.05 K/uL (0.00-0.50) 01/02/24 06:18 Baso # (Auto) 0.08 K/uL (0.00-0.20) 01/02/24 06:18 Immature Gran # (Auto) 0.04 K/uL (0.01-0.20) 01/02/24 06:18 PT 13.5 Seconds (9.0-12.0) H 01/01/24 13:15 INR 1.3 (0.9-1.1) H 01/01/24 13:15 APTT 28 Seconds (21-31) 01/02/24 00:20 PTT Ratio 1.0 01/02/24 00:20 ABG pH 7.50 (7.35-7.45) H 01/01/24 19:58 ABG pCO2 25 mmHg (35-46) L 01/01/24 19:58 ABG pO2 123 mmHg (80-95) H 01/01/24 19:58 ABG HCO3 20 mmol/L (19-24) 01/01/24 19:58 ABG O2 Saturation 100.0 % (90-95) H 01/01/24 19:58 ABG Base Excess -2.1 mEq/L (-9-1.8) 01/01/24 19:58 Tavo Test Pos (Pos) 01/01/24 19:58 Oxygen Given ROOM AIR 01/01/24 19:58 Sodium 139 mmol/L (136-145) 01/02/24 06:18 Potassium 2.9 mmol/L (3.5-5.1) L 01/02/24 06:18 Chloride 104 mmol/L (98-107) 01/02/24 06:18 Carbon Dioxide 22 mmol/L (21-32) 01/02/24 06:18 Anion Gap 13 (3-11) H 01/02/24 06:18 BUN 9 mg/dl (6-23) 01/02/24 06:18 Creatinine 0.94 mg/dl (0.6-1.4) 01/02/24 06:18 Est Cr Clr Drug Dosing 78.2 ml/min 01/02/24 06:18 Est GFR ( Amer) 94.8 ml/min 01/02/24 06:18 Est GFR (Non-Af Amer) 81.8 ml/min 01/02/24 06:18 BUN/Creatinine Ratio 9.6 (10-20) L 01/02/24 06:18 Glucose 109 mg/dl (70-99(Fasting)) H 01/02/24 06:18 POC Glucose 180 mg/dl (70-99) H 01/02/24 11:06 Lactate 1.1 mmol/L (0.4-2.0) 01/01/24 19:58 Calcium 6.6 mg/dl (8.6-10.3) L 01/02/24 06:18 Ionized Calcium 0.78 mmol/L (1.12-1.32) L 01/02/24 06:18 Phosphorus 3.9 mg/dl (2.5-4.9) 01/02/24 06:18 Magnesium 2.4 mg/dl (1.7-2.4) 01/02/24 06:18 Total Bilirubin 1.1 mg/dl (0.2-1.0) H 01/01/24 13:15 AST 26 U/L (13-39) 01/01/24 13:15 ALT 23 U/L (7-52) 01/01/24 13:15 Alkaline Phosphatase 64 U/L (34-104) 01/01/24 13:15 Total Creatine Kinase 739 U/L (30-223) H 01/02/24 06:18 Troponin I High Sens 16.1 pg/ml (0-20) 01/01/24 13:15 Total Protein 6.8 gm/dl (6.0-8.3) 01/01/24 13:15 Albumin 4.0 gm/dl (3.4-5.0) 01/01/24 13:15 Globulin 2.8 gm/dl (2.5-4.0) 01/01/24 13:15 Albumin/Globulin Ratio 1.4 (0.9-2) 01/01/24 13:15 Lipase 67 U/L (11-82) 01/01/24 13:15 25-OH Vitamin D Total 17.0 ng/ml (30-100) L 01/02/24 08:59 PTH Intact 110.2 pg/ml (12.0-88.0) H 01/02/24 08:59 Urine Color Dark Yellow 01/01/24 21:20 Urine Appearance Cloudy (Clear) A 01/01/24 21:20 Urine pH 5.0 (4.5-7.5) 01/01/24 21:20 Ur Specific [place] 1.019 (1.000-1.030) 01/01/24 21:20 Urine Protein Trace (Negative) H 01/01/24 21:20 Urine Glucose (UA) Negative (Negative) 01/01/24 21:20 Urine Ketones Trace (Negative) H 01/01/24 21:20 Urine Blood Negative (Negative) 01/01/24 21:20 Urine Nitrite Negative (Negative) 01/01/24 21:20 Urine Bilirubin Negative (Negative) 01/01/24 21:20 Urine Urobilinogen Negative (Negative) 01/01/24 21:20 Ur Leukocyte Esterase Trace (Negative) H 01/01/24 21:20 Urine WBC (Auto) 6-10 /hpf (0-5) H 01/01/24 21:20 Urine RBC (Auto) 0-2 /hpf (0-2) 01/01/24 21:20 U Hyaline Cast (Auto) 11-20 /lpf (0-2) H 01/01/24 21:20 U Epithel Cells (Auto) 11-20 /hpf (0-2) H 01/01/24 21:20 Urine Bacteria (Auto) None Seen (None Seen) 01/01/24 21:20 Hyaline Casts Present /lpf (None Presnt) A 01/01/24 21:20 Urine Mucus Present (None Prsent) A 01/01/24 21:20 Urine Sodium 57 mmol/L 01/01/24 21:20 Urine Potassium 72.9 mmol/L 01/01/24 21:20 Urine Chloride 78 mmol/L 01/01/24 21:20 SARS-CoV-2, RNA, NAAT NEGATIVE (NEGATIVE) 01/01/24 14:08 Impressions Chest X-Ray 01/01/24 13:40 XR chest 1V portable HISTORY: Chest pain, nonspecific COMPARISON: Chest 02/10/2023 FINDINGS: No pneumothorax. No pleural effusions. The cardiac silhouette is mildly enlarged. Calcifications again noted within the aortic knob. Calcified granuloma within the left lower lobe, unchanged. Calcified granuloma within the right lung apex. No new focal lung consolidations to suggest a pneumonia. Mild interstitial thickening is noted. This is likely chronic. No evidence for pulmonary edema. Calcified left hilar lymph nodes again noted. IMPRESSION: 1. No acute process within the chest. 2. Stable cardiomegaly and mild chronic interstitial thickening again noted. ACT 112: Negative or not required by law. Electronically signed by: Gwyn Shaw M.D. 01/01/2024 2:16 PM PG Care Time/CCT Total # of Minutes Spent Total Time Spent with Patient: Total time spent is greater than 50% in coordination of care (as documented) at patient's floor/unit and/or counseling patient: Coding Level of Care Code 27634 IN/OBS CONSULT LVL 5,80M Diagnoses Weakness R53.1 Hypomagnesemia E83.42 Hypocalcemia E83.51 Hypokalemia E87.6
[2024-01-02] MEDS: CALCIUM CARBONATE 500 MG CHEWABLE TAB PO SCH (08:37)
[2024-01-02] MEDS ORDERED: ATORVASTATIN 40 MG TAB PO SCH (09:00)
--- NOTE | 2024-01-02 10:47 | Electrocardiogram Report ---
Test Reason : Blood Pressure : / mmHG Vent. Rate : 082 BPM Atrial Rate : 082 BPM P-R Int : 134 ms QRS Dur : 094 ms QT Int : 472 ms P-R-T Axes : 054 -03 046 degrees QTc Int : 551 ms Sinus rhythm with Premature atrial complexes Prolonged QT Abnormal ECG When compared with ECG of 01-JAN-2024 20:40, (unconfirmed) Sinus rhythm has replaced Atrial fibrillation Confirmed by Jorge Cox ([id number]) on 01/02/2024 10:46:53 AM Referred By: REFERRED SELF Confirmed By:Joe Cox
--- NOTE | 2024-01-02 11:01 | XCELERA ---
[id number] \\[id number]
[2024-01-02] MEDS: MAGNESIUM CHLORIDE W/CALCIUM 64MG DELAYED REL TAB PO ONE (13:29)
[2024-01-02] MEDS: CHOLECALCIFEROL 125 MCG (5,000 UNITS) TAB PO SCH (13:29)
[2024-01-02] MEDS: SPIRONOLACTONE 25 MG TAB PO SCH (13:29)
[2024-01-02 15:30] LABS: Calcium 7.3 mg/dl (8.6-10.3); Creatinine Clr Calc Pharmacy 73.5 ml/min; Est GFR (Non-African American) 75.9 ml/min; Potassium 3.1 mmol/L (3.5-5.1)
[2024-01-02] MEDS: CALCIUM GLUCONATE 1,000 MG/60 ML BAG IV STA (16:31)
--- NOTE | 2024-01-02 16:54 | Hospitalist Progress Note ---
Date of Service January 02, 2024 Assessment & Plan (1) Hypomagnesemia: Plan: severe 0.5 level at time of ER presentation s/p aggressive replacement with IV/PO supplementation now resolved likely the dedicated regional driver of hypocalcemia & hypokalemia etiology - malabsorption due to PPI use? (and PPI was increased to BID dosing in mid-November) Recent diarrhea/vomiting? etoh use? Prior Ozempic use? Bumex (although he only uses prn)? other unidentified causes? now on slow-mag 64mg BID d/c home on such Dr Oliva's assistance from nephro appreciated 24-hour urine mag collection in progress; random urine mag level also previously sent repeat serum Mag level am (2) Hypocalcemia: Plan: Total Calcium level 5.9 on ER arrival with albumin at 4.0 s/p copious IV/PO replacement since admission with improving levels Low calcium likely primarily due to #1 above Vitamin D def will also contribute [place] gluconate IV given today Calcitriol d/c in favor of cholecalciferol 5000 units daily Continue calcium carbonate 500mg TID BMP am (3) Hypokalemia: Plan: Likely 2nd to #1 above Cont supplementation BMP am (4) History of CHF (congestive heart failure): Plan: HFpEF no decompensation in quite some time Last echo on 02/09/2023 revealed LVEF at 55-60% Bumex had been used prn at home only no evidence of decompensation this admission cont meto succ 25mg daily (5) Diabetes mellitus, type 2: Plan: Last A1c at 6.4% earlier in November Novolog SSI - control is excellent T2DM diet BSG ACHS (6) H/O metabolic acidosis with increased anion gap: Plan: Anion gap 17-->13 on arrival ABG with metabolic alkalosis Lactate wnl BMP parameters all improved (7) CAD (coronary artery disease), [place] coronary artery: Plan: Previous [place] in 2006 s/p CARSON x 1 to mid RCA Continue aspirin, metoprolol, atorvastatin (8) Hyperlipidemia: Plan: hold statin 2nd to mild elevation in CPK (9) Hypertension: Plan: aldactone 25mg daily added by nephrology due to low K and concomitant HTN (10) Prolonged QT interval: Plan: should improve as low mag/ca/K all improved daily EKG (11) Gout: Plan: R elbow R great toe both came on at same time throbbing, nocturnal pain is severe colchicine 0.6mg po x 1 now, then PO prednisone 10mg daily check uric acid and crp in am I do not think he has a septic elbow based on examination today check x-rays of both joints to r/o fracture, etc (12) Abnormal EKG: Plan: at times his EKGs and tele strips appear to be a.fib, but more likely he is in NSR with considerable ectopy continue to monitor defer on anticoagulation Plan progressing nicely Admission and Anticipated Discharge Date Admission Date: January 01, 2024 Subjective overall feels very good no paresthesias in any location (some chronic numbness in hands only) the previous paresthesias of head/neck have not returned states that 2 or more days ago - about the same time - he developed acute onset of pain/swelling of R foot & R elbow hurts to bear weight thinks he may have broken the foot when he was having paresthesias, cramps, and tetany type symptoms at home his toes curled up while walking and he hurt the R foot hurts to bend the elbow otherwise eating/drinking well tele overnight - NSR w/ frequent ectopy no a.fib Review of Systems Review of Systems: gen - no fevers or chills cv - no chest pain pulm - no dyspnea GI - no N/V/D Physical Exam Physical Exam: gen - sitting in chair eating his meal, looks good, NAD neck - no JVD mouth - MMM heart - irregular, s1 s2, no murmur lungs - CTA b/l abd - soft NT ND BS+ ext - right foot focal edema only, otherwise no edema b/l; pulses b/l feet 2+ musculo - classic podagra of R great toe - redness, swelling, warmth of first MTP joint; tender with passive/active ROM and palpation. right elbow - olecrenon bursal swelling +/- elbow joint swelling with mild warmth; with passive/active ROM he has considerable pain of the elbow joint; tender over olecrenon bursa to palpation psych - a/o x 3 Results & Data Results & Data Vital Signs (Past 12 Hours) Vital Signs Temp Pulse Pulse Resp BP Pulse Ox O2 Del Method 01/02/24 16:47 79 01/02/24 14:53 36.5 C 76 17 135/83 98 Room Air 01/02/24 12:14 37.1 C 76 15 125/86 97 Room Air 01/02/24 08:36 36.6 C 62 15 149/86 H 99 Room Air 01/02/24 08:00 75 Laboratory Results Laboratory Results - last 24 hr 01/01/24 01/01/24 01/01/24 16:43 18:22 19:58 WBC RBC Hgb Hct MCV MCH MCHC RDW Std Deviation RDW Coeff of Fernanda Plt Count MPV Immature Gran % (Auto) Neut % (Auto) Lymph % (Auto) Vance % (Auto) Eos % (Auto) Baso % (Auto) Neut # (Auto) Lymph # (Auto) Vance # (Auto) Eos # (Auto) Baso # (Auto) Immature Gran # (Auto) APTT PTT Ratio ABG pH 7.50 H ABG pCO2 25 L ABG pO2 123 H ABG HCO3 20 ABG O2 Saturation 100.0 H ABG Base Excess -2.1 Tavo Test Pos Oxygen Given ROOM AIR Sodium 140 Potassium 2.4 L* Chloride 104 Carbon Dioxide 23 Anion Gap 13 H BUN 12 Creatinine 1.11 Est Cr Clr Drug Dosing 65.1 Est GFR ( Amer) 77.6 Est GFR (Non-Af Amer) 66.9 BUN/Creatinine Ratio 10.8 Glucose 108 H POC Glucose 95 Lactate 1.1 Calcium 5.8 L* Ionized Calcium Phosphorus Magnesium 1.1 L Total Creatine Kinase 25-OH Vitamin D Total PTH Intact Urine Color Urine Appearance Urine pH Ur Specific [place] Urine Protein Urine Glucose (UA) Urine Ketones Urine Blood Urine Nitrite Urine Bilirubin Urine Urobilinogen Ur Leukocyte Esterase Urine WBC (Auto) Urine RBC (Auto) U Hyaline Cast (Auto) U Epithel Cells (Auto) Urine Bacteria (Auto) Hyaline Casts Urine Mucus Ur Random Creatinine Ur Random Magnesium Urine Sodium Urine Potassium Urine Chloride 01/01/24 01/01/24 01/02/24 20:44 21:20 00:20 WBC RBC Hgb Hct MCV MCH MCHC RDW Std Deviation RDW Coeff of Fernanda Plt Count MPV Immature Gran % (Auto) Neut % (Auto) Lymph % (Auto) Vance % (Auto) Eos % (Auto) Baso % (Auto) Neut # (Auto) Lymph # (Auto) Vance # (Auto) Eos # (Auto) Baso # (Auto) Immature Gran # (Auto) APTT 28 PTT Ratio 1.0 ABG pH ABG pCO2 ABG pO2 ABG HCO3 ABG O2 Saturation ABG Base Excess Tavo Test Oxygen Given Sodium 137 Potassium 2.9 L D Chloride 103 Carbon Dioxide 23 Anion Gap 11 BUN 10 Creatinine 1.02 Est Cr Clr Drug Dosing 72.2 Est GFR ( Amer) 85.9 Est GFR (Non-Af Amer) 74.1 BUN/Creatinine Ratio 9.8 L Glucose 92 POC Glucose 110 H Lactate Calcium 6.4 L Ionized Calcium Phosphorus Magnesium 1.7 Total Creatine Kinase 25-OH Vitamin D Total PTH Intact Urine Color Dark Yellow Urine Appearance Cloudy A Urine pH 5.0 Ur Specific [place] 1.019 Urine Protein Trace H Urine Glucose (UA) Negative Urine Ketones Trace H Urine Blood Negative Urine Nitrite Negative Urine Bilirubin Negative Urine Urobilinogen Negative Ur Leukocyte Esterase Trace H Urine WBC (Auto) 6-10 H Urine RBC (Auto) 0-2 U Hyaline Cast (Auto) 11-20 H U Epithel Cells (Auto) 11-20 H Urine Bacteria (Auto) None Seen Hyaline Casts Present A Urine Mucus Present A Ur Random Creatinine Ur Random Magnesium Urine Sodium 57 Urine Potassium 72.9 Urine Chloride 78 01/02/24 01/02/24 01/02/24 06:18 07:05 08:59 WBC 8.88 RBC 3.67 L Hgb 11.5 L Hct 34.4 L MCV 93.7 MCH 31.3 MCHC 33.4 RDW Std Deviation 51.5 H RDW Coeff of Fernanda 14.7 H Plt Count 149 MPV 11.1 Immature Gran % (Auto) 0.5 Neut % (Auto) 77.2 Lymph % (Auto) 9.7 Vance % (Auto) 11.1 Eos % (Auto) 0.6 Baso % (Auto) 0.9 Neut # (Auto) 6.86 H Lymph # (Auto) 0.86 L Vance # (Auto) 0.99 H Eos # (Auto) 0.05 Baso # (Auto) 0.08 Immature Gran # (Auto) 0.04 APTT PTT Ratio ABG pH ABG pCO2 ABG pO2 ABG HCO3 ABG O2 Saturation ABG Base Excess Tavo Test Oxygen Given Sodium 139 Potassium 2.9 L Chloride 104 Carbon Dioxide 22 Anion Gap 13 H BUN 9 Creatinine 0.94 Est Cr Clr Drug Dosing 78.2 Est GFR ( Amer) 94.8 Est GFR (Non-Af Amer) 81.8 BUN/Creatinine Ratio 9.6 L Glucose 109 H POC Glucose 104 H Lactate Calcium 6.6 L Ionized Calcium 0.78 L Phosphorus 3.9 Magnesium 2.4 Total Creatine Kinase 739 H 25-OH Vitamin D Total 17.0 L PTH Intact 110.2 H Urine Color Urine Appearance Urine pH Ur Specific [place] Urine Protein Urine Glucose (UA) Urine Ketones Urine Blood Urine Nitrite Urine Bilirubin Urine Urobilinogen Ur Leukocyte Esterase Urine WBC (Auto) Urine RBC (Auto) U Hyaline Cast (Auto) U Epithel Cells (Auto) Urine Bacteria (Auto) Hyaline Casts Urine Mucus Ur Random Creatinine Ur Random Magnesium Urine Sodium Urine Potassium Urine Chloride 01/02/24 01/02/24 01/02/24 11:06 14:48 16:12 WBC RBC Hgb Hct MCV MCH MCHC RDW Std Deviation RDW Coeff of Fernanda Plt Count MPV Immature Gran % (Auto) Neut % (Auto) Lymph % (Auto) Vance % (Auto) Eos % (Auto) Baso % (Auto) Neut # (Auto) Lymph # (Auto) Vance # (Auto) Eos # (Auto) Baso # (Auto) Immature Gran # (Auto) APTT PTT Ratio ABG pH ABG pCO2 ABG pO2 ABG HCO3 ABG O2 Saturation ABG Base Excess Tavo Test Oxygen Given Sodium 137 Potassium 3.1 L Chloride 105 Carbon Dioxide 21 Anion Gap 11 BUN 11 Creatinine 1.00 Est Cr Clr Drug Dosing 73.5 Est GFR ( Amer) 88.0 Est GFR (Non-Af Amer) 75.9 BUN/Creatinine Ratio 11.0 Glucose 95 POC Glucose 180 H 86 Lactate Calcium 7.3 L Ionized Calcium Phosphorus Magnesium Total Creatine Kinase 25-OH Vitamin D Total PTH Intact Urine Color Urine Appearance Urine pH Ur Specific [place] Urine Protein Urine Glucose (UA) Urine Ketones Urine Blood Urine Nitrite Urine Bilirubin Urine Urobilinogen Ur Leukocyte Esterase Urine WBC (Auto) Urine RBC (Auto) U Hyaline Cast (Auto) U Epithel Cells (Auto) Urine Bacteria (Auto) Hyaline Casts Urine Mucus Ur Random Creatinine Ur Random Magnesium Urine Sodium Urine Potassium Urine Chloride 01/02/24 Unknown WBC RBC Hgb Hct MCV MCH MCHC RDW Std Deviation RDW Coeff of Fernanda Plt Count MPV Immature Gran % (Auto) Neut % (Auto) Lymph % (Auto) Vance % (Auto) Eos % (Auto) Baso % (Auto) Neut # (Auto) Lymph # (Auto) Vance # (Auto) Eos # (Auto) Baso # (Auto) Immature Gran # (Auto) APTT PTT Ratio ABG pH ABG pCO2 ABG pO2 ABG HCO3 ABG O2 Saturation ABG Base Excess Tavo Test Oxygen Given Sodium Potassium Chloride Carbon Dioxide Anion Gap BUN Creatinine Est Cr Clr Drug Dosing Est GFR ( Amer) Est GFR (Non-Af Amer) BUN/Creatinine Ratio Glucose POC Glucose Lactate Calcium Ionized Calcium Phosphorus Magnesium Total Creatine Kinase 25-OH Vitamin D Total PTH Intact Urine Color Urine Appearance Urine pH Ur Specific [place] Urine Protein Urine Glucose (UA) Urine Ketones Urine Blood Urine Nitrite Urine Bilirubin Urine Urobilinogen Ur Leukocyte Esterase Urine WBC (Auto) Urine RBC (Auto) U Hyaline Cast (Auto) U Epithel Cells (Auto) Urine Bacteria (Auto) Hyaline Casts Urine Mucus Ur Random Creatinine Pending Ur Random Magnesium Pending Urine Sodium Urine Potassium Urine Chloride PG Care Time/CCT Total # of Minutes Spent Total Time Spent with Patient: Total time spent is greater than 50% in coordination of care (as documented) at patient's floor/unit and/or counseling patient: Coding Level of Care Code 07876 SUB INP/OBS CARE 3/50MIN Diagnoses Hypomagnesemia E83.42 Hypocalcemia E83.51 Hypokalemia E87.6 History of CHF (congestive heart failure) Z86.79 Diabetes mellitus, type 2 E11.9 H/O metabolic acidosis with increased anion gap Z86.39 CAD (coronary artery disease), [place] coronary artery I25.10 Hyperlipidemia E78.5 Hypertension I10 Prolonged QT interval R94.31 Gout M10.9 Abnormal EKG R94.31
[2024-01-02] MEDS: COLCHICINE 0.6 MG TAB PO ONE (18:03)
--- NOTE | 2024-01-02 18:28 | XRay Report ---
XR elbow RT 2V CLINICAL HISTORY: right elbow pain, tenderness TECHNIQUE: 2 views of the right elbow were obtained. Comparison: None available at the time of this dictation. FINDINGS: There is no evidence of an acute fracture. Joint spaces are well-preserved. The alignment is anatomic . A joint effusion is noted about the elbow. Soft tissue swelling is seen about the elbow. IMPRESSION: Joint effusion is seen without radiographic evidence of fracture, however a subtle nondisplaced fract ure may be present. If clinical concern remains, delayed imaging can be performed. ACT 112: Negative or not required by law. Electronically signed by: Boaz Fatima M.D. 01/02/2024 6:25 PM
[2024-01-02] MEDS: predniSONE 10 MG TABLET PO STA (18:36)
--- NOTE | 2024-01-02 18:40 | XRay Report ---
XR foot RT 2V CLINICAL HISTORY: right great toe pain, recent injury; eval Fx TECHNIQUE: 3 views of the right foot were obtained. Comparison: None available at the time of this dictation. FINDINGS: No fractures are present. 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 Soft tissue swelling is seen about the foot. IMPRESSION: Soft tissue swelling is seen without evidence of underlying bony abnormality. ACT 112: Negative or not required by law. Electronically signed by: Boaz Fatima M.D. 01/02/2024 6:38 PM
[2024-01-02] MEDS: MAGNESIUM CHLORIDE W/CALCIUM 64MG DELAYED REL TAB PO SCH (21:28)
--- NOTE | 2024-01-03 06:52 | Electrocardiogram Report ---
Test Reason : Blood Pressure : / mmHG Vent. Rate : 082 BPM Atrial Rate : 066 BPM P-R Int : 000 ms QRS Dur : 090 ms QT Int : 498 ms P-R-T Axes : 000 -10 038 degrees QTc Int : 581 ms Sinus rhythm with fequent PACs, some conducted aberrantly Minimal voltage criteria for LVH, may be normal variant Nonspecific ST and T wave abnormality Prolonged QT Abnormal ECG When compared with ECG of 01-JAN-2024 13:55, (unconfirmed) Nonspecific T wave abnormality, improved in Inferior leads Nonspecific T wave abnormality, improved in Lateral leads Reconfirmed by Jorge Cox ([id number]) on 01/03/2024 11:29:18 AM Referred By: REFERRED SELF Confirmed By:Joe Cox
--- NOTE | 2024-01-03 07:06 | Electrocardiogram Report ---
Test Reason : Blood Pressure : / mmHG Vent. Rate : 074 BPM Atrial Rate : 074 BPM P-R Int : 000 ms QRS Dur : 090 ms QT Int : 484 ms P-R-T Axes : 037 -07 037 degrees QTc Int : 537 ms Sinus rhythm with occasional PACS and junctional escape beats Prolonged QT Abnormal ECG Confirmed by Jorge Cox ([id number] on 01/03/2024 7:06:27 AM Referred By: REFERRED SELF Confirmed By:Joe Cox
[2024-01-03 07:07] LABS: BUN Creatinine Ratio 10.7 (10-20); C Reactive Protein 11.12 mg/dl (0-0.5); Calcium 7.4 mg/dl (8.6-10.3); Creatinine Clr Calc Pharmacy 87.6 ml/min; Est GFR (African American) 102.8 ml/min; Est GFR (Non-African American) 88.7 ml/min; Magnesium 2.1 mg/dl (1.7-2.4); Potassium 4.1 mmol/L (3.5-5.1); Uric Acid 4.9 mg/dl (2.6-7.2)
--- NOTE | 2024-01-03 09:01 | Nephrology Progress Note ---
Date of Service January 03, 2024 Assessment & Plan (1) Weakness: Plan: * Multiple metabolic abnormalities related to recent Ozempic use, poor oral intake, nausea/vomiting and diarrhea. Patient is symptomatically improved off Ozempic therapy. His hypocalcemia and hypokalemia are likely a direct result of his profound hypomagnesemia. * If patient is discharged home today, recommend continuing Slow-Mag 64 mg BID, OTC vitamin D3 5000 units daily, calcium carbonate 1 tablet TID, and spironolactone 25 mg daily. Ozempic, Rocaltrol and KCl have been stopped. I have sent a task to my correction officer head staff to contact patient tomorrow and schedule follow-up office visit in 7-14 days. Orders for nonfasting blood and urine studies are currently active in outpatient EMR for follow-up BMP, magnesium, vitamin D, PTH. These are to be completed 1 day prior to patient's nephrology office visit (2) Hypomagnesemia: Plan: * Primary service is already repleted serum magnesium with IV supplementation. * Can follow-up results of 24-hour urine magnesium as outpatient * Continue OTC Slow-Mag (magnesium chloride) 64 mg 1 tablet twice daily (3) Hypocalcemia: Plan: * Patient has low vitamin D, appropriately elevated PTH * Continue OTC vitamin D3 5000 units daily (4) Hypokalemia: Plan: * In part related to bumetanide therapy * KCl has been stopped * Continue spironolactone 25 mg daily Admission and Anticipated Discharge Date Admission Date: January 01, 2024 Subjective Mr. Herrera was evaluated in his hospital room this morning. He was subjectively improved. He denies muscle cramping or paresthesias. His nausea and vomiting have resolved. His diarrhea has markedly improved. He hopes to return home soon Review of Systems Constitutional: no fever Eyes: no problem reported Ear, Nose, Mouth, Throat: no problem reported Respiratory: no cough and no dyspnea Cardiovascular: no chest pain and no syncope Gastrointestinal: + diarrhea/loose stools; no nausea and n o vomiting Genitourinary: no dysuria, no hematuria or no flank pain Integumentary: no rash Neurologic: no problem reported Physical Exam Constitutional: not in distress Eyes: PERRL, conjunctivae normal, anicteric sclerae ENMT: external ear and nose normal, oropharynx normal Neck: trachea midline, no thyromegaly Respiratory: normal respiratory effort, lungs clear to auscultation Cardiovascular: RRR, no murmur, no edema Gastrointestinal (Abdomen): normal bowel sounds, soft, nontender, no hepatosplenomegaly Skin: no rashes, warm and dry Neurologic: Speech / Cognition: normal speech and normal cognition Psychiatric: Affect: euthymic affect Results & Data Vital Signs (Past 12 Hours) Vital Signs Temp Pulse Pulse Resp BP Pulse Ox O2 Del Method 01/03/24 07:50 68 01/03/24 07:42 36.9 C 71 18 112/73 96 Room Air 01/03/24 02:33 37.0 C 74 18 104/64 96 Room Air 01/02/24 23:00 77 01/02/24 22:59 37.0 C 72 19 113/69 95 Room Air Laboratory Results Laboratory Results - last 24 hr 01/02/24 01/02/24 01/02/24 08:59 11:06 14:48 Sodium 137 Potassium 3.1 L Chloride 105 Carbon Dioxide 21 Anion Gap 11 BUN 11 Creatinine 1.00 Est Cr Clr Drug Dosing 73.5 Est GFR ( Amer) 88.0 Est GFR (Non-Af Amer) 75.9 BUN/Creatinine Ratio 11.0 Glucose 95 POC Glucose 180 H Uric Acid Calcium 7.3 L Magnesium Total Creatine Kinase C-Reactive Protein 25-OH Vitamin D Total 17.0 L PTH Intact 110.2 H Ur Random Creatinine Ur Random Magnesium 01/02/24 01/02/24 01/02/24 16:12 20:02 Unknown Sodium Potassium Chloride Carbon Dioxide Anion Gap BUN Creatinine Est Cr Clr Drug Dosing Est GFR ( Amer) Est GFR (Non-Af Amer) BUN/Creatinine Ratio Glucose POC Glucose 86 109 H Uric Acid Calcium Magnesium Total Creatine Kinase C-Reactive Protein 25-OH Vitamin D Total PTH Intact Ur Random Creatinine Pending Ur Random Magnesium Pending 01/03/24 01/03/24 05:48 07:29 Sodium 136 Potassium 4.1 D Chloride 106 Carbon Dioxide 21 Anion Gap 9 BUN 9 Creatinine 0.84 Est Cr Clr Drug Dosing 87.6 Est GFR ( Amer) 102.8 Est GFR (Non-Af Amer) 88.7 BUN/Creatinine Ratio 10.7 Glucose 105 H POC Glucose 105 H Uric Acid 4.9 Calcium 7.4 L Magnesium 2.1 Total Creatine Kinase 448 H C-Reactive Protein 11.12 H 25-OH Vitamin D Total PTH Intact Ur Random Creatinine Ur Random Magnesium PG Care Time/CCT Total # of Minutes Spent Total Time Spent with Patient: Total time spent is greater than 50% in coordination of care (as documented) at patient's floor/unit and/or counseling patient: Coding Level of Care Code 63382 SUB INP/OBS CARE 3/50MIN Diagnoses Weakness R53.1 Hypomagnesemia E83.42 Hypocalcemia E83.51 Hypokalemia E87.6
[2024-01-03 11:24] LABS: Urine Creatinine 130.8 mg/dl
[2024-01-03 11:36] LABS: Creatinine 24 Hour Urine 1.1 gm/24 HR (0.6-2.5)
[2024-01-03] MEDS: COLCHICINE 0.6 MG TAB PO ONE (13:31)
--- NOTE | 2024-01-03 14:12 | Discharge Summary ---
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 (and PPI was increased to BID dosing in mid-November) Recent diarrhea/vomiting? etoh use? Prior Ozempic use? Bumex (although he only uses prn)? other unidentified causes? now on slow-mag 64mg BID d/c home on such Dr Oliva's assistance from nephro appreciated 24-hour urine mag collection in progress; random urine mag level also previously sent repeat serum Mag level am (2) Hypocalcemia: Total Calcium level 5.9 on ER arrival with albumin at 4.0 s/p copious IV/PO replacement since admission with improving levels Low calcium likely primarily due to #1 above Vitamin D def will also contribute Fortunato gluconate IV given today Calcitriol d/c in favor of cholecalciferol 5000 units daily Continue calcium carbonate 500mg TID BMP am (3) Hypokalemia: Likely 2nd to #1 above Cont supplementation BMP am (4) History of CHF (congestive heart failure): HFpEF no decompensation in quite some time Last echo on 02/09/2023 revealed LVEF at 55-60% Bumex had been used prn at home only no evidence of decompensation this admission cont meto succ 25mg daily (5) Diabetes mellitus, type 2: Last A1c at 6.4% earlier in November Novolog SSI - control is excellent T2DM diet BSG ACHS (6) H/O metabolic acidosis with increased anion gap: Anion gap 17-->13 on arrival ABG with metabolic alkalosis Lactate wnl BMP parameters all improved (7) CAD (coronary artery disease), teller coronary artery: Previous SD in 2006 s/p CARSON x 1 to mid RCA Continue aspirin, metoprolol, atorvastatin (8) Hyperlipidemia: hold statin 2nd to mild elevation in CPK (9) Hypertension: aldactone 25mg daily added by nephrology due to low K and concomitant HTN (10) Prolonged QT interval: should improve as low mag/ca/K all improved daily EKG (11) Gout: R elbow R great toe both came on at same time throbbing, nocturnal pain is severe colchicine 0.6mg po x 1 now, then PO prednisone 10mg daily check uric acid and crp in am I do not think he has a septic elbow based on examination today check x-rays of both joints to r/o fracture, etc (12) Abnormal EKG: at times his EKGs and tele strips appear to be a.fib, but more likely he is in NSR with considerable ectopy continue to monitor defer on anticoagulation Plan progressing nicely Admission HPI Per Admitting Provider Yovani is a 68yo M with PMH of HTN, HLD, osteoarthritis, skin cancer, CAD, T2DM, restrictive lung disease, chronic respiratory failure with hypoxia, and hypersomnia. He presented on 12/31 for intermittent numbness and swelling in his head and upper extremities bilaterally x 1.5 weeks. Patient first noticed a problem while he was out at [place]. He would have numbness and tingling from the back of his head that extends down to his jaw and then down both arms bilaterally lasting for about 30 minutes at a time. This has gradually worsened, and increased in frequency to about 45 times daily. Patient started taking Benadryl at home to calm down his symptoms. He also endorses muscle tightening and contractures in his hands. UTD on tetanus. He was recently admitted to the hospital for low magnesium several weeks ago, but prior to this he had no prior history of low mag. Patient did not take his regular morning medications today due to nausea. He manages his own medicine at home. He was recently on diclofenac 25 mg daily x 4 years, but recently took him off it for left hip replacement. Patient notes that at home with his and 2 grown children. Patient also missed his last 2 doses of potassium chloride supplements. He denies any history of kidney disease, but did have 2 kidney stones 6 months ago and was hospitalized. He reports he has a history of dehydration and anxiety. Patient denies history of heavy alcohol use; last alcoholic drink was 1.5 weeks ago in [place]. Former tobacco cigarette smoker, but quit in 2003. Regarding Bumex, he did take 1 tablet of 1 mg of Bumex yesterday, but reports he does not use it regularly. He does report he has a history of CHF, but only takes Bumex every few days as needed for leg swelling. No recent change in diet. He watches his salt intake. He denies smoking/tobacco use. Patient is hypertensive at 147/96 and tachycardic at 108 bpm at time of admission. ED course: Magnesium sulfate 1 g IV x 2 NSS 500 mL IV Ativan 1 mg SL Calcium gluconate 1000 mg IV Potassium chloride 40mEq p.o. ROS: Patient endorses dizziness, lightheadedness, fatigue, numbness and tingling down the arms, shooting pain down his leg (which may be secondary to sciatica), abdo chitra cramping, and nausea/vomiting x 2 episodes on 12/31 Patient denies fever, chills, night sweats, headache, changes in vision, chest pain, SOB, pleuritic CP, cough, diarrhea, or change in urinary/bowel habits. Discharge Exam gen - sitting in chair eating his meal, looks good, NAD neck - no JVD mouth - MMM heart - irregular, s1 s2, no murmur lungs - CTA b/l abd - soft NT ND BS+ ext - right foot focal edema only, otherwise no edema b/l; pulses b/l feet 2+ musculo - classic podagra of R great toe - redness, swelling, warmth of first MTP joint; tender with passive/active ROM and palpation. right elbow - olecrenon bursal swelling +/- elbow joint swelling with mild warmth; with passive/active ROM he has considerable pain of the elbow joint; tender over olecrenon bursa to palpation psych - a/o x 3 Updated Medication List Medication Instructions Recorded Confirmed Type aspirin 81 mg tablet,delayed 81 mg PO QAM 01/21/19 01/01/24 History release lorazepam 1 mg tablet 1 mg PO TID PRN Anxiety 03/22/20 01/01/24 History albuterol sulfate 90 mcg/actuation 2 puff inhalation Q6H PRN 12/11/22 01/01/24 Rx aerosol inhaler Shortness Of Breath Or Wheezing #18 grams atorvastatin 80 mg tablet (Lipitor) 80 mg PO QAM 02/09/23 01/01/24 History Portable Oxygen #1 ea 02/11/23 12/30/23 Rx ondansetron 4 mg disintegrating 4 mg PO Q6H PRN nausea and 11/26/23 01/01/24 Rx tablet vomiting #20 tabs acetaminophen 500 mg tablet 500 mg PO QID PRN Pain 12/04/23 01/01/24 History diclofenac sodium 75 mg 75 mg PO QAM 12/04/23 01/01/24 History tablet,delayed release metoprolol succinate 25 mg 25 mg PO QAM 12/04/23 01/01/24 History tablet,extended release 24 hr potassium chloride 20 mEq 20 meq PO BID 12/04/23 01/01/24 History tablet,extended release sertraline 25 mg tablet 25 mg PO BID 12/04/23 01/01/24 History pantoprazole 40 mg tablet,delayed 40 mg PO BID #60 tabs 12/08/23 01/01/24 Rx release (Protonix) bumetanide 1 mg tablet 1 mg PO DAILY PRN weight gain #30 12/09/23 01/01/24 Rx tabs Discontinue DME #1 ea 12/25/23 12/30/23 Rx fluticasone propionate 50 1 spray intranasal DAILY PRN 01/01/24 01/01/24 History mcg/actuation nasal Congestion spray,suspension losartan 50 mg tablet 50 mg PO QAM 01/01/24 01/01/24 History nitroglycerin 0.4 mg sublingual 0.4 mg sublingual DIRECTED PRN 01/01/24 01/01/24 History tablet (Nitrostat) Chest Pain sildenafil 25 mg tablet 0 mg PO DAILY PRN NEEDED PER PT 01/01/24 01/01/24 History calcium carbonate 500 mg PO TID #60 tabs 01/03/24 Rx cholecalciferol (vitamin D3) 125 125 mcg PO QAM #30 tabs 01/03/24 Rx mcg (5,000 unit) tablet famotidine 20 mg tablet 20 mg PO BID #60 tabs 01/03/24 Rx magnesium chloride 64 mg 64 mg PO BID #60 tabs 01/03/24 Rx (magnesium chloride) tablet,delayed release (Mag 64) prednisone 10 mg tablet 10 mg PO DAILY 7 days #7 tabs 01/03/24 Rx spironolactone 25 mg tablet 25 mg PO QAM #30 tabs 01/03/24 Rx Hospital Stay Data Consultations 01/01/24 14:36 ED Decision to Admit Stat 01/01/24 18:33 Consult Nephrology Routine Pending Results Patient Have Any Pending Studies at Discharge: No Discharge Instructions Given to Patient (Per Discharging Provider) Mr Herrera, Castro were hospitalized due to having numbness/tingling that was due to SEVERELY low magnesium, calcium and potassium levels. We suspect that the calcium and potassium levels dropped as a result of the severely low magnesium. 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 All 3 electrolytes either normalized or significantly improved while here with IV and oral supplementation. Your stay was complicated by a gout attack of your right elbow and right big toe. This is improving with colchicine & prednisone. Finally, although your heart was quite irregular as a result of the low electrolytes, we did NOT see any atrial fibrillation while here. Recommendations - 1. to prevent low magnesium take - * magnesium chloride 64mg twice daily 2. to prevent low potassium take - * spironolactone 25mg once daily each morning * this is a diuretic and a blood pressure pill but prevents potassium from dropping low 3. to treat & prevent low calcium take - * vitamin D (cholecalciferol) 1 tablet of 5000 units (125mcg) once daily every day * [id number] "TUMS" 500mg three times daily 4. for heartburn - * STOP pantoprazole * START famotidine 20mg twice daily 5. STOP the following - * atorvastatin - your CPK/CK muscle test was mildly elevated, possibly due to your cholesterol medicine; we will repeat your CPK in 1 week when you get your electrolytes rechecked * diclofenac * losartan * potassium tablets * ondansetron (zofran) - nausea medication * bumetanide (bumex) - diuretic medication 6. for R elbow and R big toe gout - * prednisone 10mg daily with food x 7 days, first dose TOMORROW on 01/04/24 * the prednisone may raise your blood sugars - just watch your sugars carefully * see handout on gout and gout diet * alcohol and shellfish are 2 typical culprits that bring on gout attacks Follow-up - see separate section YOU WILL NEED REPEAT BLOOD WORK WITHIN THE NEXT WEEK. I WOULD SUGGEST YOU HAVE THE BLOOD WORK THIS COMING THURSDAY, 01/07 OR THE FOLLOWING THURSDAY, 01/10. ALL LAB ORDERS HAVE BEEN PLACED FOR YOU. Return to [facility] if - * you have worsening right elbow or right foot pain * you have worsening numbness/tingling * you have extreme weakness or fatigue * you have shortness of breath or chest pains * you have muscle aches, cramps, or pains * any other concerns It was our pleasure to care for you! -Dr Cortés Coding Diagnoses Hypomagnesemia E83.42 Hypocalcemia E83.51 Hypokalemia E87.6 History of CHF (congestive heart failure) Z86.79 Diabetes mellitus, type 2 E11.9 H/O metabolic acidosis with increased anion gap Z86.39 CAD (coronary artery disease), teller coronary artery I25.10 Hyperlipidemia E78.5 Hypertension I10 Prolonged QT interval R94.31 Gout M10.9 Abnormal EKG R94.31
--- NOTE | 2024-01-03 20:14 | Electrocardiogram Report ---
Test Reason : Blood Pressure : / mmHG Vent. Rate : 072 BPM Atrial Rate : 072 BPM P-R Int : 146 ms QRS Dur : 086 ms QT Int : 456 ms P-R-T Axes : 068 010 050 degrees QTc Int : 499 ms Normal sinus rhythm Incomplete right bundle branch block Abnormal ECG When compared with ECG of 02-JAN-2024 08:12, No significant change was found Confirmed by Jorge Cox ([id number]) on 01/03/2024 8:14:03 PM Referred By: REFERRED SELF Confirmed By:Joe Cox
--- NOTE | 2024-01-03 20:20 | Electrocardiogram Report ---
Test Reason : Blood Pressure : / mmHG Vent. Rate : 084 BPM Atrial Rate : 000 BPM P-R Int : 000 ms QRS Dur : 086 ms QT Int : 452 ms P-R-T Axes : 000 -12 008 degrees QTc Int : 534 ms Poor data quality, interpretation may be adversely affected sinus rhythm with frequent and consecutive PACs Abnormal ECG Confirmed by Jorge Cox ([id number] on 01/03/2024 8:20:07 PM Referred By: REFERRED SELF Confirmed By:Joe Cox
== END 2024-01-03 15:18 | disposition home or self-care (01) | DRG 641 ==
LOC: ED 12:55 → 2E 16:02

== ENCOUNTER 2024-03-03 06:33 | Observation (INO) ==
--- NOTE | 2023-12-09 14:59 | PAT Medication Instructions ---
Medication Instructions Date of Service December 09, 2023 Home Medications Medication Instructions Recorded albuterol sulfate 90 mcg/actuation 2 puff inhalation Q6H PRN 12/11/22 aerosol inhaler Shortness Of Breath Or Wheezing #18 grams Portable Oxygen #1 ea 02/11/23 mupirocin 2 % topical ointment 1 applic topical BID #50 grams 11/21/23 ondansetron 4 mg disintegrating 4 mg PO Q6H PRN nausea and 11/26/23 tablet vomiting #20 tabs amoxicillin 875 mg tablet 875 mg PO Q12H #10 tabs 12/08/23 lactobacillus combination no.4 3 3,000 mmu cells PO DAILY #5 caps 12/08/23 billion cell capsule (Probiotic) pantoprazole 40 mg tablet,delayed 40 mg PO BID #60 tabs 12/08/23 release (Protonix) sulfamethoxazole 800 1 tab PO BID #10 tabs 12/08/23 mg-trimethoprim 160 mg tablet (Bactrim DS) bumetanide 1 mg tablet 1 mg PO DAILY PRN weight gain #30 12/09/23 tabs aspirin 81 mg tablet,delayed release 81 mg PO QAM lorazepam 1 mg tablet 1 mg PO TID PRN Anxiety albuterol sulfate 90 mcg/actuation aerosol inhaler 2 puff inhalation Q6H PRN Shortness Of Breath Or Wheezing atorvastatin 80 mg tablet (Lipitor) 80 mg PO QAM mupirocin 2 % topical ointment 1 applic topical BID ondansetron 4 mg disintegrating tablet 4 mg PO Q6H PRN nausea and vomiting acetaminophen 500 mg tablet 500 mg PO QID PRN Pain diclofenac sodium 75 mg tablet,delayed release 75 mg PO QAM metoprolol succinate 25 mg tablet,extended release 24 hr 25 mg PO QAM potassium chloride 20 mEq tablet,extended release 20 meq PO .ON HOLD sertraline 25 mg tablet 25 mg PO PM amoxicillin 875 mg tablet 875 mg PO Q12H lactobacillus combination no.4 3 billion cell capsule (Probiotic) 3,000 mmu cells PO DAILY pantoprazole 40 mg tablet,delayed release (Protonix) 40 mg PO BID sulfamethoxazole 800 mg-trimethoprim 160 mg tablet (Bactrim DS) 1 tab PO BID bumetanide 1 mg tablet 1 mg PO DAILY PRN weight gain Continue as directed amoxicillin 875 mg tablet 875 mg PO Q12H sulfamethoxazole 800 mg-trimethoprim 160 mg tablet (Bactrim DS) 1 tab PO BID ASK your surgeon for instructions diclofenac sodium 75 mg tablet,delayed release 75 mg PO QAM ASK your prescriber and surgeon aspirin 81 mg tablet,delayed release 81 mg PO QAM STOP taking 24 hours before surgery mupirocin 2 % topical ointment 1 applic topical BID DO NOT take the morning of surgery potassium chloride 20 mEq tablet,extended release 20 meq PO .ON HOLD lactobacillus combination no.4 3 billion cell capsule (Probiotic) 3,000 mmu cells PO DAILY bumetanide 1 mg tablet 1 mg PO DAILY PRN weight gain Take morning of surgery With a small sip of water, OTHERWISE NOTHING TO EAT OR DRINK AFTER MIDNIGHT: lorazepam 1 mg tablet 1 mg PO TID PRN Anxiety (if needed) albuterol sulfate 90 mcg/actuation aerosol inhaler 2 puff inhalation Q6H PRN Shortness Of Breath Or Wheezing (use if needed; please bring rescue inhaler with you to hospital day of surgery if possible) atorvastatin 80 mg tablet (Lipitor) 80 mg PO QAM ondansetron 4 mg disintegrating tablet 4 mg PO Q6H PRN nausea and vomiting (if needed) acetaminophen 500 mg tablet 500 mg PO QID PRN Pain (if needed) metoprolol succinate 25 mg tablet,extended release 24 hr 25 mg PO QAM pantoprazole 40 mg tablet,delayed release (Protonix) 40 mg PO BID Take evening before surgery lorazepam 1 mg tablet 1 mg PO TID PRN Anxiety (if needed) albuterol sulfate 90 mcg/actuation aerosol inhaler 2 puff inhalation Q6H PRN Shortness Of Breath Or Wheezing (if needed) ondansetron 4 mg disintegrating tablet 4 mg PO Q6H PRN nausea and vomiting (if needed) acetaminophen 500 mg tablet 500 mg PO QID PRN Pain (if needed) sertraline 25 mg tablet 25 mg PO PM pantoprazole 40 mg tablet,delayed release (Protonix) 40 mg PO BID bumetanide 1 mg tablet 1 mg PO DAILY PRN weight gain (if needed) Other Notes If you have any questions please call us at [phone] or [phone] or [phone] or [phone]
--- NOTE | 2023-12-21 09:08 | Anesthesiology Consultation ---
Date of Service December 21, 2023 Assessment & Plan (1) Encounter for pre-operative examination: - Check BSG AM DOS - Infectious disease screening: Per assessment on 12/21/23: No known recent infectious disease contacts or current infectious disease symptoms. - Outpatient joint assessment: Pt currently scheduled for inpatient pathway. If surgeon requests review for outpatient joint pathway, patient is not recommended candidate for outpatient joint program from anesthesia standpoint based on available information. - Pulmonary visit (12/02/23): "Exertional shortness of breath --> significantly improved after weight loss.. Multifactorial.. Significant smoking, 94-thzh-efca history possibility of emphysema is there.. Patient used to be on Spiriva in the past but after the weight loss he had found significant benefit in his breathing and is not using any inhalers right now. It is reasonable for patient not to be on any inhalers given that he is not symptomatic.. PFT 12/02/2023 personally reviewed: No obstructive lung dysfunction, insignificant bronchodilator response, air trapping, mild decrease in DLCO (Increase in FVC by 1.4 L, increase in FEV1 by 1.5 L, increase in TLC 74--> 90%, no significant change in DLCO is in weight by 70 pounds compared to 01/21).. I will order nocturnal oximetry to be done again given the significant weight loss to see if the patient still needs oxygen at night.. 6MWT 01/06/22: Patient was able to walk 420 feet, he desaturated to 87% on room air. He was able to maintain his saturation 91-92% on 2 L nasal cannula.. Abnormal chest CT.. Mosaicism along with subpleural reticular markings. Patient did have severe COVID-19 pneumonia back in July 2020 --> I think this is mostly residual finding from that.. I do not hear any crackles on physical exam, no indication for CAT scan unless patient has symptoms.. Pulmonary hypertension Type II.. History of COVID-19 pneumonia.. Needed to be hospitalized and intubated back in July 2020.. Follow Up: 1 Year" - S/P cysto, laser, stent (02/09/23): Grade 2 view, Glidescope#4, ETT 8, see anesthesia record for full details. > Per post-op progress note 02/09/23, "pt arrived to pacu on 15L simple mask saturation of 88%. Pt was tachypneic. Pt was rhonchorus throughout. Pt given a DuoNeb with no improvement. Chest xray ordered which showed pulmonary edema. Pt had received two doses of 10mg Lasix. Pt continued to deteriorate. pt had been refusing bipap from the start of the day 2/2 claustrophobia. Preparations were made to intubate, but pt agreed to bipap. Pt began to improve on bipap. ABG was done after 25 mins on bip which showed CO2 of 77. Pt VSS on bipap. Pt will be admitted to the hospitalist service." - PCP visit (12/10/23): "..He was recently seen in emergency room on 12/06/2023 for intractable vomiting as well as right buttocks wound. He was seen by gastroenterology given the intractable vomiting. Recommendations were that he should increase his pantoprazole to 40mg twice daily. It was felt that his symptoms were likely due to a combination of starting semaglutide as well as using doxycycline for the skin infection.. He is feeling better now. Reports that apetite is improving.. Wounds have been healing well.. He is scheduled for total hip replacement of the left hip on 01/30/2024.. From his overall jenny perspective, he appears to be optimized for surgical intervention. The infection appears to have resolved. He should finish antibiotics course as is prescribed.. I would defer to cardiology for final input regarding his overall cardiovascular risk prior to the operation.. I see no further testing warranted as this time from my perspective.." > Patient reports at subsequent PAT visit 12/21/23 that wounds have healed s/p abx completion. - Patient acceptable risk for surgery pending surgeon-ordered cardiology preop evaluation ([facility] [place] cardio, appt 12/29). Chart Review Chart Review: Patient seen in Pre Admission Testing Teaching & Discussion Pre-Anesthesia Teaching/Discussion Notes: Instructed NPO after midnight before surgery,except medications with 15 cc of water. Medication instructions provided according to the PAT guidelines. History Surgery Operation Date: 01/07/24 11:00 Proposed Procedures p Left Total Hip Arthroplasty - Max Miller MD Height/Weight Height: 5 ft 6 in Weight: 93.9 kg Allergies Allergy/AdvReac Type Severity Reaction Status Date / Time ciprofloxacin Allergy Intermediate Rash, Verified 12/09/23 08:17 tunnel vision, loss of taste cimetidine Allergy Mild Diaphoresis Verified 12/09/23 08:17 cantaloupe Allergy Unknown Rash Verified 12/09/23 08:17 melon Allergy Unknown Rash Verified 12/09/23 08:17 Medications Home Medications Medication Instructions Recorded Confirmed Last Taken aspirin 81 mg tablet,delayed 81 mg PO QAM 01/21/19 12/09/23 03/22/23 release lorazepam 1 mg tablet 1 mg PO TID PRN Anxiety 03/22/20 12/09/23 02/09/23 05:00 albuterol sulfate 90 mcg/actuation 2 puff inhalation Q6H PRN 12/11/22 12/09/23 02/09/23 05:00 aerosol inhaler Shortness Of Breath Or Wheezing #18 grams atorvastatin 80 mg tablet (Lipitor) 80 mg PO QAM 02/09/23 12/09/23 03/25/23 Portable Oxygen #1 ea 02/11/23 12/09/23 Unknown mupirocin 2 % topical ointment 1 applic topical BID #50 grams 11/21/23 12/09/23 Unknown ondansetron 4 mg disintegrating 4 mg PO Q6H PRN nausea and 11/26/23 12/09/23 Unknown tablet vomiting #20 tabs acetaminophen 500 mg tablet 500 mg PO QID PRN Pain 12/04/23 12/09/23 Unknown diclofenac sodium 75 mg 75 mg PO QAM 12/04/23 12/09/23 Unknown tablet,delayed release metoprolol succinate 25 mg 25 mg PO QAM 12/04/23 12/09/23 Unknown tablet,extended release 24 hr potassium chloride 20 mEq 20 meq PO .ON HOLD 12/04/23 12/09/23 Unknown tablet,extended release sertraline 25 mg tablet 25 mg PO PM 12/04/23 12/09/23 Unknown lactobacillus combination no.4 3 3,000 mmu cells PO DAILY #5 caps 12/08/23 12/09/23 Unknown billion cell capsule (Probiotic) pantoprazole 40 mg tablet,delayed 40 mg PO BID #60 tabs 12/08/23 12/09/23 Unknown release (Protonix) bumetanide 1 mg tablet 1 mg PO DAILY PRN weight gain #30 12/09/23 12/09/23 Unknown tabs Past Medical History Medical History Anxiety CAD (coronary artery disease) Stent x1 (2006) Diabetes mellitus, type 2 Diet controlled (previous Ozempic use) Diverticular disease Hx diverticulitis per records Hiatal hernia History of CHF (congestive heart failure) History of claustrophobia History of COVID-19 07/2020: hospitalized, ventilator support x 10 days at [facility]- Covid MRSA PNA History of heart attack 2006 History of kidney stones Hx MRSA infection 2020 > when had covid, and at present from recent wound culture 10/2023 Hyperlipidemia Hypertension Morbid obesity Neuropathy left hand On home oxygen therapy 1-2 lpm via NC prn (rare use) Osteoarthritis Pulmonary hypertension Echo 01/2023: Right atrial pressure 3mmhg Right heart cath 03/2023: "Moderate pulmonary hytertension (postcapillary)" Restrictive lung disease Exercise / Class Metabolic Activity III < 4 Walking/Shop/Light housework Past Family History Family History Sister Family history of breast cancer Father Family history of leukemia Other Family history of skin cancer Past Surgical History Surgical History History of arthroscopy of left knee History of arthroscopy of right knee History of cardiac cath 03/2023 ([facility])- no stents 2006- stent x1 (2 attempts at [facility] > transferred to [facility] for stent placement) History of colonoscopy History of lithotripsy cysto, laser, stent (02/09/23): Grade 2 view, Glidescope#4, ETT 8, see anesthesia record for full details. Per post-op progress note 02/09/23, "pt arrived to pacu on 15L simple mask saturation of 88%. Pt was tachypneic. Pt was rhonchorus throughout. Pt given a DuoNeb with no improvement. Chest xray ordered which showed pulmonary edema. Pt had received two doses of 10mg Lasix. Pt continued to d eteriorate. pt had been refusing bipap from the start of the day 2/2 claustrophobia. Preparations were made to intubate, but pt agreed to bipap. Pt began to improve on bipap. ABG was done after 25 mins on bip which showed CO2 of 77. Pt VSS on bipap. Pt will be admitted to the hospitalist service." History of skin cancer resection History of tonsillectomy History of tooth extraction Hx of decompression of ulnar nerve Left ulnar nerve decompression (10/24/21): LMA#5 at [facility] S/P hip replacement right Past Anesthesia History No Family Hx of Anesthesia Complications and Other (Awareness, slow to wake) cysto, laser, stent (02/09/23): Grade 2 view, Glidescope#4, ETT 8, see anesthesia record for full details. > Per post-op progress note 02/09/23, "pt arrived to pacu on 15L simple mask saturation of 88%. Pt was tachypneic. Pt was rhonchorus throughout. Pt given a DuoNeb with no improvement. Chest xray ordered which showed pulmonary edema. Pt had received two doses of 10mg Lasix. Pt continued to deteriorate. pt had been refusing bipap from the start of the day 2/2 claustrophobia. Preparations were made to intubate, but pt agreed to bipap. Pt began to improve on bipap. ABG was done after 25 mins on bip which showed CO2 of 77. Pt VSS on bipap. Pt will be admitted to the hospitalist service." History of PONV No Hx of PONV and Hx of Motion Sickness Social History Smoking Status: Former smoker tobacco type: cigarettes Smoking cigarettes per day: ~1/2 PPD x 25 YEARS Do You Dip or Chew Tobacco: No Smoking End Date: 2005 Hx Alcohol Use: Yes Alcohol type: hard liquor alcohol intake frequency: a few times a month Hx Substance Use: No substance use type: does not use Last Used Substance Other:: 1 month ago Review of Systems Remote hx of palpitations. Right buttocks wound 11/2023 resolved s/p abx per patient. Patient denies chest pain, shortness of breath, fever, chills, cough, wheezing. Physical Exam Vital Signs BP 116/76 P 63 TEMP 97.7 SP02 99%RA RESP 16 Physical Full cervical extension range of motion. Full TMJ range of motion. TMD 3 finger breaths Mallampati Score 1 Dentition: intact, + caps/implant (sides) Lungs: clear throughout to auscultation Cardiac: regular rate and rhythm, no murmurs noted Spine: normal Carotid arteries: negative bruit Extremities: no LE edema Lab Results Anesthesia Preop Results Results Anesthesia Widget: WBC 6.92 K/ul (4.8-10.8) 12/18/23 Hgb 11.7 g/dl (14.0-18.0) L 12/18/23 Hct 35.7 % (42.0-52.0) L 12/18/23 Plt 195 K/uL (130-400) 12/18/23 Na 141 mmol/L (136-145) 12/18/23 K 3.6 mmol/L (3.5-5.1) 12/18/23 Cl 110 mmol/L (98-107) H 12/18/23 CO2 22 mmol/L (21-32) 12/18/23 BUN 15 mg/dl (6-23) 12/18/23 Creat 0.98 mg/dl (0.6-1.4) 12/18/23 Glucose Level 87 mg/dl (70-99(Fasting)) 12/18/23 POC Glucose 95 mg/dl (70-99) 12/08/23 PT 11.6 Seconds (9.0-12.0) 12/18/23 PTT 25 Seconds (21-31) 12/21/23 INR 1.1 (0.9-1.1) 12/18/23 HA1c 6.4 % (4.5-5.6) H 12/07/23 Urine Color Yellow 12/21/23 Urine Appearance Clear (Clear) 12/21/23 Urine pH 5.0 (4.5-7.5) 12/21/23 Urine Specific [place] 1.012 (1.000-1.030) 12/21/23 Urine Protein Negative (Negative) 12/21/23 Urine Glucose (UA) Negative (Negative) 12/21/23 Urine Ketones Negative (Negative) 12/21/23 Urine Blood Negative (Negative) 12/21/23 Urine Nitrite Negative (Negative) 12/21/23 Urine Bilirubin Negative (Negative) 12/21/23 Urine Urobilinogen Negative (Negative) 12/21/23 Urine Leukocyte Esterase Negative (Negative) 12/21/23 Blood Type B Positive 12/21/23 Antibody Screen NEGATIVE 12/21/23 Testing Electrocardiogram Date: 12/18/23 NSR at 68bpm. "Normal ECG" Echocardiogram Date: 02/09/23 EF 55-60%. No regional wall motion abnormality. Mild concentric LVH. Mild TR. Stress Test Date: 03/13/23 1. Abnormal myocardial perfusion study with small Lexiscan induced mid-apical anteroseptal perfusion defect potentially consistent with LAD ischemia. 2. Fixed small inferolateral perfusion defect likely artifact. 3. Borderline dilated LV with low-normal LV function. LVEF 46% with no regional wall motion abnormalities. 4. Non-diagnostic stress ECG due to inability to reach target HR with Lexiscan. *Subsequent cardiac cath done 03/25/23* Cardiac Catheterization Date: 03/25/23 1. Severe multivessel coronary artery disease-99% mid LAD occlusion. LAD fills via large epicardial collateral from D1 and brisk right to left collaterals Large D1 70-80% mid stenosis Patent early-mid RCA stent, 60 to 70% latemid stent 2. Elevated left and right-sided filling pressures 3. Moderate pulmonary hypertension (postcapillary). 4. Normal cardiac output Recommendations: Chronic subtotal LAD occlusion well collateralized from large diagonal and RCA. Plan on medical management with improved blood pressure control, additional diuretics and antianginal therapy. If refractory symptoms in the future potential interventional options (? PCI to LAD vs diagonal vs FFR/PCI of mid RCA). If were to need intervention in the future recommend femoral approach.
--- NOTE | 2023-12-22 11:28 | History & Physical Report ---
Date of Service December 22, 2023 Assessment & Plan (1) Osteoarthritis of left hip: Plan: PRE-OP Diagnosis: Left hip osteoarthritis Planned Procedure: Left total hip arthroplasty Plan: Patient is scheduled to undergo this procedure at the [facility] with a 23-hour observation admission with Dr. Miller on December. Risks and complications of the procedure such as: Infection, bleeding, pain, scarring, nerve blood vessel damage, weakness, wound problems, stiffness, incomplete relief of symptoms, hardware failure, hardware loosening, wear, fracture, tendon or ligament injury, dislocation, leg length inequality, blood clots, Embolism, heart attack, stroke and were explained to the patient at his visit today. Informed consent to perform the procedure was obtained. Patient has an appointment to meet with anesthesia next week and while there will obtain CBC with differential, complete metabolic panel, PT/INR, blood type and screen, urinalysis, urine culture and sensitivity, EKG, hemoglobin A1c and a nasal culture for MRSA. 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 Patient states that he plans on doing in-home physical therapy for the first 1 to 2 weeks postoperatively with community health home care. Patient states that he will most likely elect to do outpatient physical therapy at facility near his home. Patient will need a walker, raised toilet seat, shower chair and a hip kit. During today's visit we reviewed the total hip packet as well as precautions. We discussed discharge planning from the hospital. I provided paperwork to obtain a handicap placard for their vehicle. We discussed lectures offered by [facility] in regards to joint replacement surgery via Zoom. I advised the patient that upon discharge from hospital we will prescribe a narcotic pain medication and anti-inflammatory. Patient will also be on an 81 mg aspirin twice daily for blood clot prevention. Patient will be scheduled for 2-week postoperative follow-up visit with myself on January 20. This chart was completed utilizing [employer] voice recognition software. Grammatical errors, random word insertions, pronoun errors, and in complete sentences are an occasional consequence of the system. Any questions or concerns about the content, text, or information contained within the body of this dictation should be addressed directly to the physician for clarification. History of Present Illness Chief Complaint: Chief Complaint: Left hip pain Primary Care Provider: Deacon Jorgensen MD History of Present Illness (including history relevant to procedure): This 68-year-old male presents to the clinic today for his preoperative history and physical. Patient's hip pain travels into his lower back. He has pain in his knee due to his hip issues. Patient has fallen several times and has been ambulating with a cane. He has fallen twice while using his cane. Patient denies numbness and tingling down his leg and does not have any issues with his balance. His pre-op appointment is scheduled for this Thursday. Patient fell on his buttocks when his cane slipped out from under him and went to the ER and received cultures. He tested positive for staph and strep and has been placed on several antibiotics. Patient was seen for this 3 days ago and was cleared for surgery. He stopped Ozempic 6 weeks ago and is starting to recover his sense of taste and smell. Patient lost 104 lbs. patient is electing to proceed with surgical intervention due to failed conservative management. Review Of Systems: A 12 point review of systems is performed and is unremarkable except for those things stated in the HPI and past medical history. Past Medical History: Problems: S/P matrixectomy of toe Toe pain, bilateral Ingrown toenail of both feet Osteoarthritis of right knee Osteoarthritis of left knee Acute sinusitis Greater trochanteric pain syndrome of left lower extremity Tinea unguium Arthritis of left hip Lesion of ulnar nerve, left upper limb DJD (degenerative joint disease) of knee Status post total hip replacement, right Osteoarthritis of right hip Coronary artery disease JOE (generalized anxiety disorder) Hearing loss Arthritis HTN (hypertension) Elevated cholesterol BCC (basal cell carcinoma) Procedure History Procedure Procedure Date Comments Shave biopsy and cauterization of skin CT of head without contrast 07/08/2020 - Impression: No acute intracraniel findings. Upper GI endoscopy 10/16/2014 - Normal 2nd part of the duonenum and examined duodenum. Biopsied.GastritisLA Grade A reflux esophagitisNormal middle third of esophagus. Biopsied.Await pathology results. Arthroscopy of knee 03/22/2014 - Left Knee Arthroscopy Extensive Debridement. Chondroplasty: Patella, Trochlea, Medial compart., Lateral Tibial Plateau. Partial medial and lateral meniscectomies. Removal of loose bodies. Injection into joint cavity 03/2013 Colonoscopy 01/17/2013 Meniscectomy of knee 2008 CABG - Coronary artery bypass graft 2006 Heart cath with stent 2006 Allergies and Sensitivities: Flagyl(dizziness) penicillin(dysuria) ciprofloxacin Allergy Not found in Search(Rash) Tagamet(Diaphoresis.) Tagamet(Decreased blood pressure) Current Home Meds: (Last Updated 12/14 15:11) LORazepam (LORazepam 1 mg oral tablet) 1 tab PO tid PRN: NEEDED FOR ANXIETY acetaminophen PRN: as needed for pain aspirin 81 mg Daily atorvastatin (atorvastatin 80 mg oral tablet) 1 tab PO qhs bumetanide (bumetanide 1 mg oral tablet) 1 mg PO Daily PRN: shortness of breath diclofenac (diclofenac sodium 75 mg oral delayed release tablet) 1 tab PO bid fluticasone nasal (fluticasone 93 mcg/inh nasal spray) prn losartan (losartan 50 mg oral tablet) 1 tab PO Daily metoprolol (metoprolol succinate 25 mg oral tablet, extended release) 25 mg PO Daily nitroglycerin (nitroglycerin 0.4 mg sublingual tablet) 0.4 mg SL q5min PRN: as needed for chest pain ondansetron (ondansetron 4 mg oral tablet, disintegrating) 4 mg PO ONCE PRN: as needed for nausea/vomiting pantoprazole (pantoprazole 40 mg oral delayed release tablet) 1 tab PO Daily potassium chloride (Potassium Chloride (Eqv-K-Tab) 20 mEq oral tablet, extended release) take 2 daily sertraline (sertraline 25 mg oral tablet) TAKE 1 TABLET BY MOUTH EVERY DAY FOR 7 DAYS, THEN TAKE 2 TABS DAILY DIRECTED sildenafil (sildenafil 20 mg oral tablet) 1 tab PO Daily PRN: NEEDED ERECTILE DYSFUNCTION. sodium hyaluronate (Euflexxa 10 mg/mL intra-articular solution) 20 mg intra- articular q7days B/L KNEE DJD M17.0 sulfamethoxazole-trimethoprim (sulfamethoxazole-trimethoprim 800 mg-160 mg oral tablet) tavaborole topical (Kerydin 5% topical solution) Apply to affected toenails once per day for 6 months Initial Wt: 12/17 90.4 kg 199 lb Allergies Allergy/AdvReac Type Severity Reaction Status Date / Time ciprofloxacin Allergy Intermediate Rash, Verified 12/09/23 08:17 tunnel vision, loss of taste cimetidine Allergy Mild Diaphoresis Verified 12/09/23 08:17 cantaloupe Allergy Unknown Rash Verified 12/09/23 08:17 melon Allergy Unknown Rash Verified 12/09/23 08:17 Home Medications Medication Instructions Recorded Confirmed Type aspirin 81 mg tablet,delayed 81 mg PO QAM 01/21/19 12/09/23 History release lorazepam 1 mg tablet 1 mg PO TID PRN Anxiety 03/22/20 12/09/23 History albuterol sulfate 90 mcg/actuation 2 puff inhalation Q6H PRN 12/11/22 12/09/23 Rx aerosol inhaler Shortness Of Breath Or Wheezing #18 grams atorvastatin 80 mg tablet (Lipitor) 80 mg PO QAM 02/09/23 12/09/23 History Portable Oxygen #1 ea 02/11/23 12/09/23 Rx mupirocin 2 % topical ointment 1 applic topical BID #50 grams 11/21/23 12/09/23 Rx ondansetron 4 mg disintegrating 4 mg PO Q6H PRN nausea and 11/26/23 12/09/23 Rx tablet vomiting #20 tabs acetaminophen 500 mg tablet 500 mg PO QID PRN Pain 12/04/23 12/09/23 History diclofenac sodium 75 mg 75 mg PO QAM 12/04/23 12/09/23 History tablet,delayed release metoprolol succinate 25 mg 25 mg PO QAM 12/04/23 12/09/23 History tablet,extended release 24 hr potassium chloride 20 mEq 20 meq PO .ON HOLD 12/04/23 12/09/23 History tablet,extended release sertraline 25 mg tablet 25 mg PO PM 12/04/23 12/09/23 History lactobacillus combination no.4 3 3,000 mmu cells PO DAILY #5 caps 12/08/23 12/09/23 Rx billion cell capsule (Probiotic) pantoprazole 40 mg tablet,delayed 40 mg PO BID #60 tabs 12/08/23 12/09/23 Rx release (Protonix) bumetanide 1 mg tablet 1 mg PO DAILY PRN weight gain #30 12/09/23 12/09/23 Rx tabs Past Med/Surg History Problem List (Updated 12/22/23 @ 11:27 by Alex Hayes PA-C) Osteoarthritis of left hip Dyslipidemia Complex renal cyst Left nephrolithiasis Chronic respiratory failure with hypoxia Follows with Dr Dias Recent PFT 12/2022 Hypersomnia Restrictive lung disease Diabetes mellitus type 2 in obese CAD (coronary artery disease), [place] coronary artery stent x1 (2006)- 2 attempts at [facility] > [place] [facility] [place] S/P total hip arthroplasty Localized osteoarthrosis of right hip Encounter for pre-operative examination History of skin cancer Hiatal hernia Osteoarthritis Hypertension Hyperlipidemia Medical History History of CHF (congestive heart failure) Pulmonary hypertension Echo 01/2023: Right atrial pressure 3mmhg Right heart cath 03/2023: "Moderate pulmonary hytertension (postcapillary)" Neuropathy left hand Osteoarthritis Hyperlipidemia Hypertension Diverticular disease Hx diverticulitis per records Hiatal hernia CAD (coronary artery disease) Stent x1 (2006) Hx MRSA infection 2020 > when had covid, and at present from recent wound culture 10/2023 Diabetes mellitus, type 2 Diet controlled (previous Ozempic use) Restrictive lung disease History of kidney stones On home oxygen therapy 1-2 lpm via [place] prn (rare use) History of claustrophobia History of COVID-19 07/2020: hospitalized, ventilator support x 10 days at [facility]- Covid MRSA PNA Morbid obesity Anxiety History of heart attack 2006 Surgical History History of lithotripsy cysto, laser, stent (02/09/23): Grade 2 view, Glidescope#4, ETT 8, see anesthesia record for full details. Per post-op progress note 02/09/23, "pt arrived to pacu on 15L simple mask saturation of 88%. Pt was tachypneic. Pt was rhonchorus throughout. Pt given a DuoNeb with no improvement. Chest xray ordered which showed pulmonary edema. Pt had received two doses of 10mg Lasix. Pt continued to deteriorate. pt had been refusing bipap from the start of the day 2/2 claustrophobia. Preparations were made to intubate, but pt agreed to bipap. Pt began to improve on bipap. ABG was done after 25 mins on bip which showed CO2 of 77. Pt VSS on bipap. Pt will be admitted to the hospitalist service." Hx of decompression of ulnar nerve Left ulnar nerve decompression (10/24/21): LMA#5 at [facility] S/P hip replacement right History of cardiac cath 03/2023 ([facility])- no stents 2006- stent x1 (2 attempts at [facility] > transferred [place] [facility] [place] placement) History of colonoscopy History of tooth extraction History of arthroscopy of left knee History of arthroscopy of right knee History of tonsillectomy History of skin cancer resection Family History Sister Family history of breast cancer Father Family history of leukemia Other Family history of skin cancer Social History Smoking Status: Former smoker Tobacco Type: Cigarettes and Cigars Age Started Using Tobacco: 14; Age Quit Using Tobacco: 51; packs per day: 0.5; Cigarettes Per Day: ~1/2 PPD x 25 YEARS; Second Hand Exposure: No; Do You Dip or Chew Tobacco: No; Hx Alcohol Use: Yes Alcohol type: hard liquor Hx Substance Use: No Preferred Language: Greenlandic Communication Ability: Effective Fur Ironer Required: No Beliefs That Will Affect Care: None marital status: Current Living Situation: Spouse Feels Safe at Home: Yes Assistive Devices: Walker Review of Systems All systems reviewed & are unremarkable except as noted in Subjective Physical Exam Physical Exam: Physical Exam: (relevant to the procedure, including heart and lung evaluation) General: Alert and oriented x 3 with proper grooming and hygiene Eyes: Pupils are equal and reactive to light with accommodation. Extraocular moods are intact Throat: Posterior oropharynx clear with absence of edema, erythema or exudate Cardiac: Regular rate and rhythm no murmurs or gallops appreciated Lungs: Clear to auscultation throughout with no wheezing, rales or rhonchi Abdomen: Obese, nondistended, nontender with NABS Extremities: Left hip; flexion is limited to 90 degrees, internal rotation to 5 degrees and external rotation to 25 degrees. Scour and impingement tests are both positive. Patient has referred pain to the groin with resistance applied when straight leg raise testing. Stinchfield test positive. Logroll test negative. Patient does experience tenderness to palpation over the groin and posterior lateral hip. He is neurovascularly intact left lower extremity. Neuro: Cranial nerves II through XII are intact no motor or sensory deficit Skin: Patient does have some superficial skin abrasions/ulcerations to the anal crease and left buttocks that appear older and healing. There is no open drainage or palpable fluctuance. Results & Data Diagnostic Findings Studies (relevant to the procedure): X-ray imaging: AP pelvis, false profile, and cross table lateral views of the left hip obtained today and personally interpreted by me show progression of arthritis compared to previous films, now [id number].
--- NOTE | 2024-02-12 16:17 | History & Physical Report ---
Date of Service February 12, 2024 Assessment & Plan (1) Osteoarthritis of left hip: Plan: PRE-OP Diagnosis: Left hip osteoarthritis Planned Procedure: Left total hip arthroplasty Plan: Patient is scheduled to undergo this procedure at the [facility] with Dr. Miller on March. Risks and complications of the procedure such as: Infection, bleeding, pain, scarring, nerve blood vessel damage, weakness, wound problems, stiffness, incomplete relief of symptoms, hardware failure, hardware loosening, wear, fracture, tendon or ligament injury, dislocation, leg length inequality, blood clots, Embolism, heart attack, stroke and were explained to the patient at his previous preop visit. Informed consent to perform the procedure was obtained. Patient is already met with anesthesia and all the labs including CBC with differential, complete metabolic panel, PT/INR, blood type and screen, urinalysis, urine culture and sensitivity, EKG, and a nasal culture for MRSA are all up-to-date. 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 Patient states that he plans on doing in-home physical therapy for the first 1 to 2 weeks postoperatively with [facility] home care. Patient states that he will most likely elect to do outpatient physical therapy at our clinic. Patient has a walker, raised toilet seat, shower chair and a hip kit. During today's visit we reviewed the total hip packet as well as precautions. We discussed discharge planning from the hospital. Patient is already done the joint venture classes prior to his previous surgeries. I advised the patient that upon discharge from hospital we will prescribe a narcotic pain medication and anti-inflammatory. Patient will also be on an 81 mg aspirin twice daily for blood clot prevention. Patient will be scheduled for a 2-week postoperative follow-up visit with myself on March 16. This chart was completed utilizing Milo voice recognition software. Grammatical errors, random word insertions, pronoun errors, and in complete sentences are an occasional consequence of the system. Any questions or concerns about the content, text, or information contained within the body of this dictation should be addressed directly to the physician for clarification. History of Present Illness Chief Complaint: Chief Complaint: Left hip pain Primary Care Provider: Deacon Jorgensen MD History of Present Illness (including history relevant to procedure): This 68-year-old male presents to the clinic today for his preoperative history and physical. Patient was initially scheduled for the surgery back on January 06 but was canceled due to significant abnormalities of his metabolic panel. Patient has since stopped taking his Ozempic and has had other medications adjusted by his primary care provider and is now optimally cleared for surgery. Patient's hip pain travels into his lower back. He has pain in his knee due to his hip issues. Patient has fallen several times and has been ambulating with a cane. He has fallen 3 times while using his cane. Patient denies numbness and tingling down his leg and does not have any issues with his balance. Patient is electing to proceed with surgical intervention due to failed conservative management. ROS: A 12 point review of systems is performed and is unremarkable except for those things stated in the HPI past medical history. Past Medical History: Problems: Osteoarthritis of left hip Osteoarthritis of left knee Osteoarthritis of right knee Osteoarthritis of right hip Tinea unguium Elevated cholesterol S/P matrixectomy of toe Toe pain, bilateral Ingrown toenail of both feet Acute sinusitis Greater trochanteric pain syndrome of left lower extremity Arthritis of left hip Lesion of ulnar nerve, left upper limb DJD (degenerative joint disease) of knee Status post total hip replacement, right Coronary artery disease JOE (generalized anxiety disorder) Hearing loss Arthritis HTN (hypertension) BCC (basal cell carcinoma) Procedure History Procedure Procedure Date Comments Shave biopsy and cauterization of skin CT of head without contrast 07/08/2020 - Impression: No acute intracraniel findings. Upper GI endoscopy 10/16/2014 - Normal 2nd part of the duonenum and examined duodenum. Biopsied.GastritisLA Grade A reflux esophagitisNormal middle third of esophagus. Biopsied.Await pathology results. Arthroscopy of knee 03/22/2014 - Left Knee Arthroscopy Extensive Debridement. Chondroplasty: Patella, Trochlea, Medial compart., Lateral Tibial Plateau. Partial medial and lateral meniscectomies. Removal of loose bodies. Injection into joint cavity 03/2013 Colonoscopy 01/17/2013 Meniscectomy of knee 2008 CABG - Coronary artery bypass graft 2006 Heart cath with stent 2006 Allergies and Sensitivities: Flagyl(dizziness) ciprofloxacin Allergy Not found in Search(Rash) Tagamet(Diaphoresis.) Tagamet(Decreased blood pressure) Current Home Meds: (Last Updated 02/11 15:11) LORazepam (LORazepam 1 mg oral tablet) 1 tab PO tid PRN: NEEDED FOR ANXIETY acetaminophen PRN: as needed for pain albuterol (Albuterol (Eqv-Proventil HFA) 90 mcg/inh inhalation aerosol) INHALE 2 PUFFS EVERY 6 HOURS NEEDED FOR SHORTNESS OF BREATH OR WHEEZING aspirin 81 mg Daily atorvastatin (atorvastatin 80 mg oral tablet) 1 tab PO qhs calcium carbonate-magnesium chloride (Magnesium Chloride With Calcium 64 mg-112 mg oral delayed release tablet) bid calcium carbonate (Tums) 1,000 mg tid cholecalciferol (Vitamin D3) bid with 200 units of Vitamin K2 famotidine (famotidine 20 mg oral tablet) 20 mg PO bid fluticasone nasal (fluticasone 93 mcg/inh nasal spray) prn metoprolol (Metoprolol Succinate ER 25 mg oral tablet, extended release) 1 tab PO Daily nitroglycerin (nitroglycerin 0.4 mg sublingual tablet) 0.4 mg SL q5min PRN: as needed for chest pain sertraline (sertraline 25 mg oral tablet) TAKE 1 TABLET BY MOUTH EVERY DAY FOR 7 DAYS, THEN TAKE 2 TABS DAILY DIRECTED sildenafil (sildenafil 20 mg oral tablet) 1 tab PO Daily PRN: NEEDED ERECTILE DYSFUNCTION. spironolactone (spironolactone 25 mg oral tablet) 25 mg PO Daily HAZARDOUS MEDICATION | tablet: green | suspension: teal - A Ruiz 01/06 14:00 Initial Wt: 02/11 97.8 kg 215 lb Allergies Allergy/AdvReac Type Severity Reaction Status Date / Time cantaloupe Allergy Intermediate Rash Verified 01/01/24 16:21 ciprofloxacin Allergy Intermediate Rash, Verified 01/01/24 16:21 tunnel vision, loss of taste melon Allergy Intermediate Rash Verified 01/01/24 16:21 cimetidine AdvReac Intermediate Diaphoresis Verified 01/01/24 16:21 Home Medications Medication Instructions Recorded Confirmed Type aspirin 81 mg tablet,delayed 81 mg PO QAM 01/21/19 01/08/24 History release lorazepam 1 mg tablet 1 mg PO TID PRN Anxiety 03/22/20 01/08/24 History Portable Oxygen #1 ea 02/11/23 01/08/24 Rx acetaminophen 500 mg tablet 500 mg PO QID PRN Pain 12/04/23 01/08/24 History metoprolol succinate 25 mg 25 mg PO QAM 12/04/23 01/08/24 History tablet,extended release 24 hr sertraline 25 mg tablet 25 mg PO BID 12/04/23 01/08/24 History Discontinue DME #1 ea 12/25/23 01/08/24 Rx fluticasone propionate 50 1 spray intranasal DAILY PRN 01/01/24 01/08/24 History mcg/actuation nasal Congestion spray,suspension nitroglycerin 0.4 mg sublingual 0.4 mg sublingual DIRECTED PRN 01/01/24 01/08/24 History tablet (Nitrostat) Chest Pain sildenafil 25 mg tablet 0 mg PO DAILY PRN NEEDED PER PT 01/01/24 01/08/24 History calcium carbonate 500 mg PO TID #60 tabs 01/03/24 01/08/24 Rx cholecalciferol (vitamin D3) 125 125 mcg PO QAM #30 tabs 01/03/24 01/08/24 Rx mcg (5,000 unit) tablet famotidine 20 mg tablet 20 mg PO BID #60 tabs 01/03/24 01/08/24 Rx magnesium chloride 64 mg 64 mg PO BID #60 tabs 01/03/24 01/08/24 Rx (magnesium chloride) tablet,delayed release (Mag 64) spironolactone 25 mg tablet 25 mg PO QAM #30 tabs 01/03/24 01/08/24 Rx atorvastatin 80 mg tablet 80 mg PO DAILY 01/18/24 01/18/24 History albuterol sulfate 90 mcg/actuation 2 puff inhalation Q6H PRN 01/26/24 Rx aerosol inhaler Shortness Of Breath Or Wheezing #18 grams Past Med/Surg History Problem List Vitamin D deficiency Abnormal CPK Abnormal EKG Gout Prolonged QT interval H/O metabolic acidosis with increased anion gap Weakness (Acute) Acute hypokalemia (Acute) Hypocalcemia (Acute) Hypomagnesemia (Acute) Atrial fibrillation History of CHF (congestive heart failure) Diabetes mellitus, type 2 Diet controlled (previous Ozempic use) Hypocalcemia Hypokalemia Hypomagnesemia Shakiness (Acute) Osteoarthritis of left hip Dyslipidemia Complex renal cyst Left nephrolithiasis Chronic respiratory failure with hypoxia Follows with Dr Dias Recent PFT 12/2022 Hypersomnia Restrictive lung disease Diabetes mellitus type 2 in obese CAD (coronary artery disease), [place] coronary artery stent x1 (2006)- 2 attempts at [facility] > transferred to [facility] for stent placement S/P total hip arthroplasty Localized osteoarthrosis of right hip Encounter for pre-operative examination History of skin cancer Hiatal hernia Osteoarthritis Hypertension Medical History Hyperlipidemia Pulmonary hypertension Echo 01/2023: Right atrial pressure 3mmhg Right heart cath 03/2023: "Moderate pulmonary hytertension (postcapillary)" Neuropathy left hand Osteoarthritis Hyperlipidemia Hypertension Diverticular disease Hx diverticulitis per records Hiatal hernia CAD (coronary artery disease) Stent x1 (2006) Hx MRSA infection 2020 > when had covid, and at present from recent wound culture 10/2023 Restrictive lung disease History of kidney stones On home oxygen therapy 1-2 lpm via [place] prn (rare use) History of claustrophobia History of COVID-19 07/2020: hospitalized, ventilator support x 10 days at [facility]- Covid MRSA PNA Morbid obesity Anxiety History of heart attack 2006 Surgical History History of lithotripsy cysto, laser, stent (02/09/23): Grade 2 view, Glidescope#4, ETT 8, see anesthesia record for full details. Per post-op progress note 02/09/23, "pt arrived to pacu on 15L simple mask saturation of 88%. Pt was tachypneic. Pt was rhonchorus throughout. Pt given a DuoNeb with no improvement. Chest xray ordered which showed pulmonary edema. Pt had received two doses of 10mg Lasix. Pt continued to deteriorate. pt had been refusing bipap from the start of the day 2/2 claustrophobia. Preparations were made to intubate, but pt agreed to bipap. Pt began to improve on bipap. ABG was done after 25 mins on bip which showed CO2 of 77. Pt VSS on bipap. Pt will be admitted to the hospitalist service." Hx of decompression of ulnar nerve Left ulnar nerve decompression (10/24/21): LMA#5 at [facility] S/P hip replacement right History of cardiac cath 03/2023 ([facility])- no stents 2006- stent x1 (2 attempts at [facility] > transferred to [facility] for stent placement) History of colonoscopy History of tooth extraction History of arthroscopy of left knee History of arthroscopy of right knee History of tonsillectomy History of skin cancer resection Family History Sister Family history of breast cancer Father Family history of leukemia Other Family history of skin cancer Social History Smoking Status: Former smoker Tobacco Type: Cigarettes Age Started Using Tobacco: 14; Age Quit Using Tobacco: 51; packs per day: 0.5; Cigarettes Per Day: ~1/2 PPD x 25 YEARS; Smoking End Date: 2005; Second Hand Exposure: No; Do You Dip or Chew Tobacco: No; Tobacco Cessation Education Requested by Patient: No Hx Alcohol Use: No Hx Substance Use: No Preferred Language: [place] African Communication Ability: Effective Credit Checker Required: No Beliefs That Will Affect Care: None marital status: Current Living Situation: Spouse Other Information That Helps Us Care for You: No Feels Safe at Home: Yes Safety Concerns: Feels Safe At This Time Assistive Devices: Cane and Glasses Review of Systems All systems reviewed & are unremarkable except as noted in Subjective Physical Exam Physical Exam: Physical Exam: (relevant to the procedure, including heart and lung evaluation) General: Alert and oriented x 3 with proper grooming and hygiene Eyes: Pupils are equal and reactive to light with accommodation. Extraocular moods are intact Throat: Posterior oropharynx clear with absence of edema, erythema or exudate Cardiac: Regular rate and rhythm no murmurs or gallops appreciated Lungs: Clear to auscultation throughout with no wheezing, rales or rhonchi Abdomen: Obese, nondistended, nontender with NABS Extremities: Left hip; flexion is limited to 90 degrees, internal rotation to 5 degrees and external rotation to 25 degrees. Scour and impingement tests are both positive. Patient has referred pain to the groin with resistance applied when straight leg raise testing. Stinchfield test positive. Logroll test negative. Patient does experience tenderness to palpation over the groin and posterior lateral hip. He is neurovascularly intact left lower extremity. Neuro: Cranial nerves II through XII are intact no motor or sensory deficit Skin: Patient does have some superficial skin abrasions/ulcerations to the anal crease and left buttocks that appear older and healing. There is no open drainage or palpable fluctuance. Results & Data Diagnostic Findings Studies (relevant to the procedure): X-ray imaging: AP pelvis, false profile, and cross table lateral views of the left hip obtained today and personally interpreted by me show progression of arthritis compared to previous films, now [id number].
[~2024-03-03 06:33] MED LIST changes: -CEFAZOLIN 3000MG 65 ML IV SCH; -LR 500ML BOLUS, THEN 15ML/HR IV SCH; -METOCLOPRAMIDE HCL 10 MG TABLET PO SCH; -ORTHO JOINT ANESTHETIC ONE; -POVIDONE-IODINE OP SOLN 30 ML BTL ONE; +ROPIV 0.5% 246mg, Ketorolac 30mg, EPINEPHrine 0.5mg in NSS INFIL SCH; -ROPIVACAINE 0.5% HCL/PF 150 MG, BUPIVACAINE 0.5% MPF 30 ML, EPINEPHrine 0.15 MG, Ketoro... INFIL SCH; +ROPIVACAINE 0.5% HCL/PF 246 MG, Ketorolac (*for OR use only*) 30 MG, EPINEPHrine 30MG/3... INFIL SCH; -SCOPOLAMINE 1.5 MG TDSY TD SCH; +Scopolamine 1 MG TDSY TD SCH; +Scopolamine CHECK PATCH PLACEMENT SCH; +TRANEXAMIC ACID 1,000 MG **IV Intra-op IV SCH; +TRANEXAMIC ACID 1,000 MG **IV Pre-op IV SCH; -TRANEXAMIC ACID 1,000 MG x 1 **For Topical Use TOP SCH; +ceFAZolin 2000MG 2,000 MG/15 ML SYR IV SCH; -dexAMETHasone 4 MG TAB PO SCH; +traMADol HCL 50 MG TABLET PO SCH
[2024-03-03] MEDS: ACETAMINOPHEN 500 MG TAB PO SCH ×2 (07:50→13:36)
[2024-03-03] MEDS: traMADol HCL 50 MG TABLET PO SCH (07:51)
[2024-03-03] MEDS: LR 15ML/HR IV SCH (07:51)
[2024-03-03] MEDS: CeleBREX 200 MG CAP PO SCH (07:51)
[2024-03-03] MEDS: LR 60ML/HR IV SCH (07:51)
[2024-03-03] MEDS: FAMOTIDINE 20 MG TAB PO SCH ×2 (07:52→21:23)
[2024-03-03] MEDS: Scopolamine 1 MG TDSY TD SCH (07:52)
[2024-03-03] MEDS ORDERED: MIDAZOLAM HCL 1 MG/ML 2ML VIAL ONE ×2 (07:53→08:12)
--- NOTE | 2024-03-03 07:53 | History & Physical Bridge Note ---
Date of Service March 03, 2024 History & Physical Bridge Note I have examined the patient, reviewed the History & Physical and in the interval since the performance of the History & Physical I have noted the following changes of clinical significance: no changes noted
[2024-03-03] MEDS: TRANEXAMIC ACID 1,000 MG **IV Pre-op IV SCH (08:07)
[2024-03-03] MEDS: ceFAZolin 2000MG 2,000 MG/15 ML SYR IV SCH ×2 (08:18→16:24)
[2024-03-03] MEDS ORDERED: HYDROmorphone INJ 2 MG/ML SYR/VIAL IV PRN (08:29)
[2024-03-03] MEDS ORDERED: ATROPINE SULFATE 0.1 MG/ML 10ML SYR IV PRN (08:29)
[2024-03-03] MEDS ORDERED: ePHEDrine sulfate 50 MG/ML AMP IV PRN (08:29)
[2024-03-03] MEDS ORDERED: fentaNYL citrate PF 100 MCG/2 ML VIAL ONE (08:39)
[2024-03-03] MEDS: ORTHO JOINT ANESTHETIC ONE (08:48)
[2024-03-03] MEDS ORDERED: PHENYLEPHRINE HCL 10 MG/ML VIAL ONE (08:51)
[2024-03-03] MEDS ORDERED: ONDANSETRON INJ 2 MG/ML 2 ML VIAL ONE (08:51)
[2024-03-03] MEDS ORDERED: PROPOFOL IV EMULSION 10 MG/ML 20 ML VIAL IV ONE ×3 (08:51→09:35)
[2024-03-03] MEDS ORDERED: ePHEDrine sulfate 50 MG/5 ML SYR ONE (08:51)
[2024-03-03] MEDS: TRANEXAMIC ACID 1,000 MG **IV Intra-op IV SCH (09:15)
[2024-03-03] MEDS: ROPIVACAINE 0.5% HCL/PF 246 MG, Ketorolac (*for OR use only*) 30 MG, EPINEPHrine 30MG/3... INFIL SCH (09:17)
--- NOTE | 2024-03-03 09:51 | Operative Report ---
Post Operative Report Pre & Post Diagnosis Operation Date: 03/03/24 08:15 Preoperative diagnosis: Left hip osteoarthritis. Postop diagnosis: Left hip osteoarthritis I identified the patient and participated in the time-out.: Yes Procedure Operation Date: 03/03/24 08:15 Left total hip arthroplasty Surgeon Max Miller MD Welder Fitter Apprentice ARIN Hayes PA-C. No resident or fellow was available to assist. Estimated Blood Loss 100 Findings Consistent with Post-Op Diagnosis Specimens Left femoral head Anesthesia Type Spinal MAC Complications none Disposition Disposition: Recovery Room Indications 68-year-old male, with left hip osteoarthritis refractory to conservative manag ement. X-rays demonstrate [id number] arthritis with severe subchondral sclerosis and cyst formation. He has previously undergone a right total hip arthroplasty by myself with a good result. He desired to have the same procedure performed on the left side. We did have him work on weight loss as he was obese. He went on Ozempic and was able to lose nearly 100 pounds. Unfortunately, he had electrolyte abnormalities as a result of inadequate p.o. intake from loss of appetite due to the medication and we previously had to cancel his surgery. His electrolyte abnormalities were subsequently reversed and he is now medically cleared for surgery. I had a long discussion with the patient about the risks and benefits of surgery, alternatives to surgery, and expected outcomes. After reviewing all these he elected to proceed with surgery. All questions were answered. Informed consent was signed. Description of Procedure Patient was identified in the preoperative holding area where the surgical site, left hip, was marked. A spinal anesthetic was placed, then the patient was brought back to the main operating room, placed in the operating table and moved into the lateral decubitus position. Axillary roll was placed. All bony prominences were padded. Perioperative antibiotics and tranexamic acid 1 gram IV were administered. The operative extremity was prepped and draped in the normal sterile fashion. Prior to incision a multidisciplinary timeout was called. All in the room were in agreement. We began by making an incision for a posterior approach to the hip. We dissected down through subcutaneous tissues to the level of the fascia. The fascia was incised in line with the incision. Charnley bow was placed. Fatty tissue was reflected posteriorly off the back of the greater trochanter to expose the piriformis and short external rotators of the hip. Quadratus femoris was taken off the femur subperiosteally. The piriformis and short external rotators were dissected off the posterior aspect of the hip. A box cut was made in the capsule. Inferior hip capsule was released off the femur. The femoral head was dislocated. The femoral neck cut was made at our preoperative template. The acetabulum was then exposed. The labrum was sharply excised. Contents of the cotyloid fossa were removed with electrocautery. We then began reaming at a size 8 mm less than our preoperative template. We reamed up by 1 [address] the way up to a size 56 mm cup. This gave us good bleeding cancellus bone circumferentially. The acetabulum was then irrigated out and dried. The real Bloomer Gription cup was then impacted down into position with 45 degrees of lateral opening and 25 degrees of anteversion. A single cancellous bone screw was placed up into the ilium. Excellent fixation was obtained. A trial liner for a 36 mm femoral head was then placed. Next we turned our attention to the femur. The lateral neck was removed with a box osteotome. Intramedullary guide was used to establish the intramedullary canal. We then broached all the way up to a size 5. We began trialing with a high offset neck and a +5 head. Hip was reduced. Leg lengths were symmetric. The hip was stable in extension and external rotation, and stable in the sleeper position. At 90 degrees of hip flexion the hip could be internally rotated 55 degrees before levering out of the cup. I was very happy with the stability exam. Therefore the hip was dislocated and the femoral trial was removed. The acetabulum was re-exposed, and the trial liner was removed. [place] hole eliminator screw was placed. An Altrx polyethylene liner for a 36 mm femoral head was then impacted into the shell. The locking mechanism was checked to ensure that it had engaged which it had. The femur was re-exposed. The femoral canal was irrigated and dried. The real Actis femoral stem was opened up. This was impacted down into position. The femoral head was opened up and gently impacted down onto the trunnion. The hip was atraumatically reduced. Another 1 gram of IV tranexamic acid was started prior to closure. The wound was irrigated out with sterile Betadine solution. The periarticular injection cocktail was then placed. The short external rotators, piriformis, and posterior capsule were repaired through drill holes in the greater trochanter using #2 Vicryl. The fascia was run with a looped #1 PDS. The subcutaneous layer was closed with #1 PDS. The dermal layer was closed with 2-0 Vicryl. Zip line was used for the skin followed by a Silverlon dressing. A compressive dressing was then placed. The patient was then rolled supine. Leg lengths were rechecked and were symmetric. An abduction pillow was placed. Sedation was lifted and the patient was transferred to the recovery room in stable condition. Summary of implants: Depuy Bloomer Gription Acetabular Shell Sector Cup, 56 mm outer diameter Bloomer Cancellous bone screw, 6.5 x 40 mm [place] hole eliminator Bloomer Altrx Polyethylene Acetabular Liner, Neutral, with a 36 mm inner diameter DePuy Actis collared cementless Femoral stem, 12/14 taper, size 5 high offset 36 mm ceramic femoral head with +5 offset Postoperative course: Patient will be admitted overnight from the recovery room. Patient will be weightbearing as tolerated with posterior hip precautions. Aspirin for DVT prophylaxis I attest to the content of the Intraoperative Record and any orders documented therein. Any exceptions are noted below.
[2024-03-03] MEDS ORDERED: HYDROmorphone INJ 0.5 MG/0.5 ML SYR IV PRN (10:03)
[2024-03-03] MEDS ORDERED: bisacodyL 10 MG SUPP PR PRN (10:03)
[2024-03-03] MEDS ORDERED: NALOXONE HCL 0.4 MG/1 ML VIAL/CARP IV PRN (10:03)
[2024-03-03] MEDS ORDERED: ONDANSETRON INJ 2 MG/ML 2 ML VIAL IV PRN (10:03)
[2024-03-03] MEDS ORDERED: MAGNESIUM HYDROXIDE SUSP 30 ML UDC PO PRN (10:03)
[2024-03-03] MEDS ORDERED: METOCLOPRAMIDE HCL INJ 5 MG/ML 2 ML VIAL IV PRN (10:03)
[2024-03-03] MEDS ORDERED: diphenhydrAMINE 50 MG/ML VIAL IV PRN (10:03)
[2024-03-03] MEDS ORDERED: ALUMINUM/MAGNESIUM SUSP 30 ML UDC PO PRN (10:03)
--- NOTE | 2024-03-03 10:03 | Operative Report ---
Post Operative Report Pre & Post Diagnosis Operation Date: 03/03/24 08:15 Pre-Op Diagnosis: Osteoarthritis of left hip Post-Op Diagnosis: Osteoarthritis of left hip I identified the patient and participated in the time-out.: Yes Procedure Operation Date: 03/03/24 08:15 Actual Procedures p Left Total Hip Arthroplasty(Left) - Mxa Miller MD Surgeon Max Miller MD Supervisor Baking ARIN Hayes PA-C. No resident or fellow was available to assist. Estimated Blood Loss 100 Findings Consistent with Post-Op Diagnosis Specimens femoral head Description of Procedure I was present during the entire case assisting with positioning, prepping, draping, wound retraction, wound closure, dressing and abduction pillow placement. No fellow present. Please see Dr. Miller procedure note for specifics of the case. I attest to the content of the Intraoperative Record and any orders documented therein. Any exceptions are noted below.
[2024-03-03] MEDS ORDERED: LORazepam 1 MG TAB PO PRN (10:08)
[2024-03-03] MEDS ORDERED: ALBUTEROL HFA 8 GM INHALER INH PRN (10:08)
[2024-03-03] MEDS ORDERED: NITROGLYCERIN SL 0.4 MG/TAB TAB SL PRN (10:08)
[2024-03-03] MEDS ORDERED: FLUTICASONE PROPIONATE NA SPR 16 GM BTL NAE PRN (10:08)
[2024-03-03] MEDS ORDERED: SILDENAFIL 25 MG PO PRN (10:08)
[2024-03-03] MEDS ORDERED: NON-FORMULARY MEDICATION (Semaglutide 0.25 mg or 0.5 mg (2 mg/3 mL) pen injector) SQ SCH (10:15)
--- OUTSIDE RECORDS SUMMARY | 2024-03-03 11:08 | External Medical Summary | Continuity of Care Document ---
Author Name Unknown Organization [facility] [address] [facility] [place] [address] Address [address] [place], [place] [id number] Care Team Providers Care Fire Eater Name Role Phone Deacon Jorgensen Primary Care Physician [phone] [id number] Date(s): 02/26/24 - 02/26/24 [facility] [address] [place] [address] [facility] [address] [facility] [address] [place], [place] [phone] Encounter Diagnosis Encounter for other preprocedural examination(Final) - Discharge Disposition: Home or Self Care Attending Physician: DO Lovelace Kristen M Referring Physician: DO Lovelace Kristen M Allergies, Adverse Reactions, Alerts Substance Criticality Severity Reaction Reaction Severity Status ciprofloxacin Active Allergy Not found in Search 1 Rash Active Flagyl dizziness Active Tagamet Diaphoresis. 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 Immunizations Given and Recorded Vaccine Date Status Refusal Reason RSV vaccine, preF A-preF B, recombinant 07/31/23 R ecorded SARS-CoV-2 (COVID-19) mRNA-vacc - [id number] 05/18/23 Recorded SARS-CoV-2 mRNA (Pfizer 12+) bivalent 04/16/22 Rec orded SARS-CoV-2 mRNA (fvfvrveovzi-fdkj-tff) 10/15/21 Re corded zoster vaccine, inactivated 07/02/21 Recorded zoster vaccine, inactivated 03/08/21 Recorded SARS-CoV-2 (COVID-19) mRNA BNT-162b2 vax 05/07/21 Recorded SARS-CoV-2 (COVID-19) mRNA BNT-162b2 vax 1 09/20/20 Recorded SARS-CoV-2 (COVID-19) mRNA BNT-162b2 vax 2 08/30/20 Recorded influenza virus vaccine, inactivated 02/17/18 Pedro rded influenza virus vaccine, inactivated 01/30/17 Pedro rded influenza virus vaccine, H1N1 3 03/30/09 Recorded 1Result Comment: 2020-11-29: Historical information-source unspecified 2Result Comment: 2020-11-29: Historical information-source unspecified 3Result Comment: 2020-11-29: Historical information-source unspecified Medications acetaminophen Start: 08/06/18 7:56:00 AM EST, PRN: as needed for pain Start Date: 08/06/18 Status: Ordered Albuterol (Eqv-Proventil HFA) 90 mcg/inh inhalation aerosol INHALE 2 PUFFS EVERY 6 HOURS NEEDED FOR SHORTNESS OF BREATH OR WHEEZING Start Date: 02/12/24 Status: Ordered aspirin Start: 08/28/20 11:14:00 AM EDT, 81 mg =, Daily Start Date: 08/28/20 Status: Ordered atorvastatin 80 mg oral tablet Start: 10/20/23 10:55:00 AM EDT, 1 tab, PO, qhs, Disp# 90 tab, Refills: 3, Pharmacy: [id number] Start Date: 10/20/23 Status: Ordered famotidine 20 mg oral tablet Start: 02/02/24 2:58:00 PM EDT, 1 tab, PO, bid, Disp# 180 tab, Pharmacy: [id number] Start Date: 02/02/24 Stop Date: 05/02/24 Status: Ordered fluticasone 93 mcg/inh nasal spray Start: 05/13/23 12:30:00 PM EST, prn Start Date: 05/13/23 Status: Ordered LORazepam 1 mg oral tablet Start: 02/03/24 8:02:00 AM EDT, 1 tab, PO, tid, Disp# 90 tab, Refills: 0, PRN: NEEDED FOR ANXIETY,Pharmacy: [facility]/pharmacy #[id number] Start Date: 02/03/24 Status: Ordered Mag-64 Start: 02/22/24 3:03:00 PM EDT, Mag-64, Note to Pharmacy: 2 tab daily Start Date: 02/22/24 Status: Ordered Magnesium Chloride With Calcium 64 mg-112 mg oral delayed release tablet Start: 01/07/24 2:06:00 PM EDT, bid Start Date: 01/07/24 Status: Ordered metoprolol succinate 50 mg oral tablet, extended release Start: 02/22/24 3:05:00 PM EDT, 1 tab, PO, Daily Start Date: 02/22/24 Status: Ordered Metoprolol Succinate ER 25 mg oral tablet, extended release Start: 12/30/23 10:08:00 AM EDT, 1 tab, PO, Daily, Disp# 90 tab, Refills: 3, Pharmacy: [id number] Start Date: 12/30/23 Status: Ordered sertraline 25 mg oral tablet Start: 02/06/23 2:02:00 PM EDT, See Instructions, Disp# 180 tab, Refills: 3, TAKE 1 TABLET BY MOUTH EVERY DAY FOR 7 DAYS, THEN TAKE 2 TABS DAILY DIRECTED, Pharmacy: [facility]/pharmacy #[id number] Start Date: 02/06/23 Status: Ordered sildenafil 20 mg oral tablet Start: 01/21/24 7:31:00 AM EDT, 1 tab, PO, Daily, Disp# 90 tab, Refills: 0, ERECTILE DYSFUNCTION., PRN: NEEDED, Pharmacy: [id number] Start Date: 01/21/24 Status: Ordered spironolactone 25 mg oral tablet Start: 02/25/24 12:47:00 PM EDT, 1 tab, PO, Daily, Disp# 90 tab, Refills: 2, Pharmacy: [facility]/pharmacy #[id number] Start Date: 02/25/24 Stop Date: 11/21/24 Status: Ordered Tums Start: 02/12/24 3:08:00 PM EDT, 1,000 mg =, tid Start Date: 02/12/24 Status: Ordered Vitamin D3 Start: 01/12/24 2:15:00 PM EDT, 5,000 units, bid, with 200 units of Vitamin K2 Start Date: 01/12/24 Status: Ordered Problem List Condition Confirmation Course Effective Dates Status H ealth Status Informant Acute sinusitis Confirmed Active Arthritis of left hip Confirmed Active Arthritis Confirmed Active BCC (basal cell carcinoma) Confirmed Active Ingrown toenail of both feet Confirmed Active Coronary artery disease Confirmed Active DJD (degenerative joint disease) of knee 1 Confirmed Active Elevated cholesterol Confirmed Active JOE (generalized anxiety disorder) Confirmed Active Greater trochanteric pain syndrome of left lower extremity Confirmed Active Hearing loss Confirmed Active S/P matrixectomy of toe Confirmed Active Status post total hip replacement, right Confirmed Active HTN (hypertension) Confirmed Active Lesion of ulnar nerve, left upper limb Confirmed Active Tinea unguium Confirmed Active Osteoarthritis of left hip Confirmed Active Osteoarthritis of left knee Confirmed Active Osteoarthritis of right hip Confirmed Active Osteoarthritis of right knee Confirmed Active Toe pain, bilateral Confirmed Active 1right Procedures Procedure Date Related Diagnosis Body Site Status CT of head without contrast 1 07/08/20 Completed Upper GI endoscopy 2 10/16/14 Comp leted Arthroscopy of knee 3 03/22/14 Com pleted Injection into joint cavity 03/2013 Completed Colonoscopy 01/17/13 Completed Meniscectomy of knee 2008 Comp leted CABG - Coronary artery bypass graft 2006 Completed Heart cath with stent 2006 Com pleted Shave biopsy and cauterization of skin Completed 1Impression: No acute intracraniel findings. 2Normal 2nd part of the duonenum and examined duodenum. Biopsied. Gastritis LA Grade A reflux esophagitis Normal middle third of esophagus. Biopsied. Await pathology results. 3Left Knee Arthroscopy Extensive Debridement. Chondroplasty: Patella, Trochlea, Medial compart., Lateral Tibial Plateau. Partial medial and lateral meniscectomies. Removal of loose bodies. Results Laboratory List Name Date Complete Blood Count w Differential (CBC ,DIFFH) 02/26/24 Most recent to oldest [Reference Range]: 1 MPV [9.0-12.2 fL] 12.0 fL (02/26/24 10:05 AM) Immature Gran% 0.4 % (02/26/24 10:05 AM) Neut% 64.0 % (02/26/24 10:05 AM) Lymph% 21.4 % (02/26/24 10:05 AM) [place]% 9.6 % (02/26/24 10:05 AM) Baso% 0.8 % (02/26/24 10:05 AM) Eos% 3.8 % (02/26/24 10:05 AM) Immat Gran, Abs [0-0.4 K/uL] 0.03 K/uL (02/26/24 10:05 AM) Neut, Abs [2.0-7.7 K/uL] 4.94 K/uL (02/26/24 10:05 AM) Lymph, Abs [1.0-3.4 K/uL] 1.65 K/uL (02/26/24 10:05 AM) [place], Abs [0-1.0 K/uL] 0.74 K/uL (02/26/24 10:05 AM) Baso, Abs [0-0.1 K/uL] 0.06 K/uL (02/26/24 10:05 AM) Eos, Abs [0-0.5 K/uL] 0.29 K/uL (02/26/24 10:05 AM) Type of Diff: AUTO *Unknown* (02/26/24 10:05 AM) RDW [11.5-14.2 %] 12.2 % (02/26/24 10:05 AM) Hct [39-48 %] 41.6 % (02/26/24 10:05 AM) Hgb [13.0-17.0 g/dL] 13.2 g/dL (02/26/24 10:05 AM) MCH [28-33 pg] 32.3 pg (02/26/24 10:05 AM) MCHC [32-36 g/dL] 31.7 g/dL *LOW* (02/26/24 10:05 AM) MCV [81-96 fL] 101.7 fL *HI* (02/26/24 10:05 AM) Plts [150-350 K/uL] 166 K/uL (02/26/24 10:05 AM) RBC [4.40-5.60 M/uL] 4.09 M/uL *LOW* (02/26/24 10:05 AM) WBC [4.0-10.4 K/uL] 7.71 K/uL (02/26/24 10:05 AM) Social History Social History Type Response Tobacco Former smoker, Cigar ettes 1 Smoking Status Never smoked cigaret perlita Sex Male Sex Representation Male (finding) 1Quit smoking 17 years ago Patient Care team information Care Team Personnel Name: Timothy Moss Michele C Position: Pharmacist Schedule II Member Role: Pharmacy - Lifetime Address: [address] [address] Name: MD Jorgensen Michael P Position: Physician - Internal Med Member Role: Primary Care Provider Address: [address] [place] [address] [place] Name: Timothy Juárez Shailja Position: Pharmacist Member Role: Pharmacy - Lifetime Address: [address] [address] [place] Care Team Related Persons Name: DAVID SALAZAR Name: DAVID SALAZAR
--- OUTSIDE RECORDS SUMMARY | 2024-03-03 11:08 | External Medical Summary | Continuity of Care Document ---
Author Name Unknown Organization [address] Address [address] [place] [address] [place], [place] [id number] Care Team Providers Care Electroplating Technician Name Role Phone JameelDeacon Primary Care Physician [phone] [id number] Date(s): 02/22/24 - 02/22/[address] [place] [address], [address] [place] [address] [phone] Encounter Diagnosis Preoperative examination(Discharge Diagnosis) - 02/22/24 Encounter for other preprocedural examination(Final) - Discharge Disposition: Home or Self Care Attending Physician: DO Lovelace Kristen M Referring Physician: DO Lovelace Kristen M Allergies, Adverse Reactions, Alerts Substance Criticality Severity Reaction Reaction Severity Status ciprofloxacin Active Allergy Not found in Search 1 Rash Active Flagyl dizziness Active Tagamet Diaphoresis. 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 -Based on the HPI and Revised Cardiac Risk Index (RCRI), this patientwith a score of 1, has a 6.0% (low-moderate) 30-day risk of , MA, or cardiac arrest (Class II risk). -Optimization of this patient for surgery requires these orderedtests to be completed preoperatively:CMP (indicated due to patient's medical history).CBCMg__ Immunizations Given and Recorded Vaccine Date Status Refusal Reason RSV vaccine, preF A-preF B, recombinant 07/31/23 R ecorded SARS-CoV-2 (COVID-19) mRNA-vacc - [id number] 05/18/23 Recorded SARS-CoV-2 mRNA (Pfizer 12+) bivalent 04/16/22 Rec orded SARS-CoV-2 mRNA (ccehtbhsxyi-khme-lzp) 10/15/21 Re corded zoster vaccine, inactivated 07/02/21 [...] qhs, Disp# 90 tab, Refills: 3, Pharmacy: [id number] Start Date: 10/20/23 Status: Ordered famotidine 20 mg oral tablet Start: 02/02/24 2:58:00 PM EDT, 1 tab, PO, bid, Disp# 180 tab, Pharmacy: [facility]/pharmacy #[id number] Start Date: 02/02/24 Stop Date: 05/02/24 Status: Ordered fluticasone 93 mcg/inh nasal spray Start: 05/13/23 12:30:00 PM EST, prn Start Date: 05/13/23 Status: Ordered LORazepam 1 mg oral tablet Start: 02/03/24 8:02:00 AM EDT, 1 tab, PO, tid, Disp# 90 tab, Refills: 0, PRN: NEEDED FOR ANXIETY,[id number] Start Date: 02/03/24 Status: Ordered Mag-64 [...] Disp# 90 tab, Refills: 3, Pharmacy: [id number] Start Date: 12/30/23 Status: Ordered sertraline 25 mg oral tablet Start: 02/06/23 2:02:00 PM EDT, See Instructions, Disp# 180 tab, Refills: 3, TAKE 1 TABLET BY MOUTH EVERY DAY FOR 7 DAYS, THEN TAKE 2 TABS DAILY DIRECTED, [id number] Start Date: 02/06/23 Status: Ordered sildenafil 20 mg oral tablet Start: 01/21/24 7:31:00 AM EDT, 1 tab, PO, Daily, Disp# 90 tab, Refills: 0, ERECTILE DYSFUNCTION., PRN: NEEDED, Pharmacy: [facility] #[id number] Start Date: 01/21/24 Status: Ordered spironolactone 25 mg oral tablet Start: 01/07/24 2:06:00 PM EDT, 1 tab, PO, Daily Start Date: 01/07/24 Status: Ordered Tums Start: 02/12/24 3:08:00 PM EDT, 1,000 mg =, tid Start Date: 02/12/24 Status: Ordered Vitamin D3 Start: 01/12/24 2:15:00 PM EDT, 5,000 units, bid, with 200 units of Vitamin K2 Start Date: 01/12/24 Status: Ordered Mental Status 02/22/24 Barriers to Learning one year None evide nt Mandatory Health Literacy Documentation Yes Health Literacy Communication Barriers N ever Primary Language Lao Problem List Condition Confirmation Course Effective Dates [...] Active Toe pain, bilateral Confirmed Active 1right Diagnosis Diagnosis Type Effective Dates Health Status Clinical Service Informant Preoperative examination Discharge Diagnosis 02/22/24 Non-Specified Procedures Procedure Date Related Diagnosis Body Site [...] Complete Blood Count w Differential (CBC ,DIFFH) 02/22/24 Comprehensive Metabolic Panel (COMP META B PANEL) 02/22/24 Magnesium Level (MAGNESIUM) 02/22/24 Most recent to oldest [Reference Range]: 1 eGFR CKD-EPI [>60 mL/min/1.73 m2] 87 mL/ min/1.73 m2 (02/22/24 4:09 PM) Estimated CrCl 81.22 mL/min (02/22/24 7:34 PM) MPV [9.0-12.2 fL] 12.1 fL (02/22/24 4:09 PM) Immature Gran% 1.1 % (02/22/24 4:09 PM) Neut% 74.1 % (02/22/24 4:09 PM) Lymph% 13.2 % (02/22/24 4:09 PM) [place]% 9.6 % (02/22/24 4:09 PM) Baso% 0.8 % (02/22/24 4:09 PM) Eos% 1.2 % (02/22/24 4:09 PM) Immat Gran, Abs [0-0.4 K/uL] 0.12 K/uL (02/22/24 4:09 PM) Neut, Abs [2.0-7.7 K/uL] 8.34 K/uL *HI* (02/22/24 4:09 PM) Lymph, Abs [1.0-3.4 K/uL] 1.49 K/uL (02/22/24 4:09 PM) [place], Abs [0-1.0 K/uL] 1.08 K/uL *HI* (02/22/24 4:09 PM) Baso, Abs [0-0.1 K/uL] 0.09 K/uL (02/22/24 4:09 PM) Eos, Abs [0-0.5 K/uL] 0.14 K/uL (02/22/24 4:09 PM) Type of Diff: AUTO *Unknown* (02/22/24 4:09 PM) RDW [11.5-14.2 %] 12.6 % (02/22/24 4:09 PM) Anion Gap [5-14 mmol/L] 16 mmol/L *HI* (02/22/24 4:09 PM) Alb [3.5-5.2 g/dL] 4.4 g/dL (02/22/24 4:09 PM) Alk Phos [40-130 unit/L] 67 unit/L 1 (02/22/24 4:09 PM) ALT [0-41 unit/L] 41 unit/L (02/22/24 4:09 PM) AST [0-40 unit/L] 21 unit/L (02/22/24:09 PM) BUN [6-23 mg/dL] 27 mg/dL *HI* (02/22/24 4:09 PM) Ca [8.4-10.2 mg/dL] 10.3 mg/dL *HI* (02/22/24: PM) Cl- [98-107 mmol/L] 104 mmol/L (02/22/24:09 PM) HCO3 [22-29 mmol/L] 21 mmol/L *LOW* (02/22/24: PM) Cret [0.70-1.30 mg/dL] 0.94 mg/dL (02/22/24:09 PM) Glu [74-109 mg/dL] 89 mg/dL 2 (02/22/24:09 PM) Hct [39-48 %] 43.3 % (02/22/24: PM) Hgb [13.0-17.0 g/dL] 14.2 g/dL (02/22/24:09 PM) K [3.5-5.1 mmol/L] 4.3 mmol/L (02/22/24:09 PM) MCH [28-33 pg] 32.6 pg (02/22/24:09 PM) MCHC [32-36 g/dL] 32.8 g/dL (02/22/24:09 PM) MCV [81-96 fL] 99.3 fL *HI* (02/22/24:09 PM) Mg [1.6-2.6 mg/dL] 2.1 mg/dL (02/22/24:09 PM) Na [136-145 mmol/L] 141 mmol/L (02/22/24:09 PM) Plts [150-350 K/uL] 153 K/uL (02/22/24 4:09 PM) RBC [4.40-5.60 M/uL] 4.36 M/uL *LOW* (02/22/24:09 PM) T Bili [0.0-1.2 mg/dL] 0.6 mg/dL (02/22/24 4:09 PM) Prot [6.4-8.3 g/dL] 7.8 g/dL (02/22/24 4:09 PM) WBC [4.0-10.4 K/uL] 11.26 K/uL *HI* (02/22/24 4:09 PM) 1Result Comment: Low levels of ALKP may indicate a deficiency in zinc, magnesium, or malnutritionbutcan also be an indicator of a rare genetic disease hypophosphatasia (HPP). 2Result Comment: ADA recommendation for FASTING Serum/Plasma Glucose: Normal: 70-100 mg/dL Prediabetes: 100-125 mg/dL Diabetes: 126 mg/dL or higher Vital Signs Most recent to oldest [Reference Range]: 1 Height 167.0 cm (02/22/24 3:08 PM) Patient Weight 101.5 kg (02/22/24 3:08 PM) Body Mass Index 36.39 kg/m2 (02/22/24 3:08 PM) Temperature [36.5-37.9 DegC] 36.5 DegC (02/22/24 3:08 PM) Respiratory Rate 16 br/min (02/22/24 3:08 PM) Blood Pressure 116/68mmHg (02/22/24 3:08 PM) Cuff Pulse Pressure 48 mmHg (02/22/24 3:08 PM) Social History Social History Type Response Tobacco Former smoker, Cigar ettes 1 Smoking Status Never smoked cigaret perlita Sex Male Sex Representation Male (finding) 1Quit smoking 17 years ago FCM Outpt Note * DO Lovelace Kristen M: DIANA Harrell MD, Jose David: PERFORM Event Display: FCM Outpt Note Authored Date: [id number] Chief Complaint Pre-op LT hip replacement with PSSM 03/03. History of Present Illness [id number] year-oldmanwho presents todayfor preoperative evaluation in advance ofleft hip replacement on March 03, 2024. Preoperative evaluation -Requested by (or surgeon name): Dr. Resendiz(orthopedic surgeon) -Type of planned surgery:intermediate risk (intraperitoneal, intrathoracic, CEA, head/neck, ortho, prostate) -Planned anesthesia?:general -Exercise tolerance/functional capacity:Poor/1-4 METs (slow ballroom dancing, golf w/ cart, playing musical instrument, walking 2mph) -History of postoperative bleeding or coagulopathy:No -Substance use per social history in EHR:Yes -Prior response to anesthesia:Yes(delayedemergence from anesthesia) Revised Cardiac Risk Index Score: [1] [0] High Risk Surgery [+1] Ischemic Heart Disease(MIin 07, LV function normal on most recent echo 2023) [0] History of CHF [0] History of cerebrovascular disease [0] Insulin therapy for DM [0] Pre-op Cr >2 Review of Systems See HPI. Physical Exam Vitals & Measurements T:36.5C RR:16 BP:116/68 SpO2:98% HT:167.0cm WT:101.5kg WT:101.500kg(Dosing) BMI:36.39 PHQ2 Data(Data Documented on:02/22/2024 15:06) Emotional health assessment NEGATIVE General:Alert and orientedindividual in no acute distress. Cardiovascular:Regular rate and rhythm. No murmurs or gallops. Respiratory:Lungs clear to auscultation bilaterally. Respirations are non- labored. Breath sounds are equal. Psych:Mood-affect congruence. Reports no SI/HI. Speech is of normal pace and content. Assessment/Plan 1.Preoperative examination 68 year-oldmanpresenting today for preoperative medical assessment. -Based on the HPI and Revised Cardiac Risk Index (RCRI), this patientwith a score of 1, has a 6.0% (low-moderate) 30-day risk of , MA, or cardiac arrest (Class II risk). -Optimization of this patient for surgery requires these orderedtests to be completed preoperatively:CMP (indicated due to patient's medical history).CBCMg__ Attestation I saw the patient and confirmed the almanzar portions of the history and physical exam and agree with the impression and plan above Problem List/Past Medical History Ongoing Acute sinusitis Arthritis Arthritis of left hip BCC (basal cell carcinoma) Coronary artery disease DJD (degenerative joint disease) of knee Elevated cholesterol JOE (generalized anxiety disorder) Greater trochanteric pain syndrome of left lower extremity Hearing loss HTN (hypertension) Ingrown toenail of both feet Lesion of ulnar nerve, left upper limb Osteoarthritis of left hip Osteoarthritis of left knee Osteoarthritis of right hip Osteoarthritis of right knee S/P matrixectomy of toe Status post total hip replacement, right Tinea unguium Toe pain, bilateral Resolved Actinic keratosis Acute sinus infection Altered taste Arthritis of carpometacarpal (CMC) joint of right thumb Diverticulitis Dizziness Early satiety Heart disease Hx of skin malignancy Knee joint effusion Knee pain Knee pain, left Left hand pain MA (myocardial infarction) Nausea Preop examination S/P orthopedic surgery, follow-up exam Senile hyperkeratosis Skin cancer Stent Synovial cyst of popliteal space Tear of meniscus of knee Ulnar neuropathy of left upper extremity Weight loss Procedure/Surgical History CT of head without contrast| Service Date: 07/08/2020Upper GI endoscopy| Service Date: 10/16/2014rthroscopy of knee| Service Date: 03/22/2014Injection into joint cavity| Service Date: 03/2013Colonoscopy| Service Date: 01/17/2013Meniscectomy of knee| Service Date: 2008Heart cath with stent| Service Date: 2006CABG - Coronary artery bypass graft| Service Date: 2006Shave biopsy and cauterization of skin Medications acetaminophen, PRN albuterol(Albuterol (Eqv-Proventil HFA) 90 mcg/inh inhalation aerosol) aspirin, 81 mg, Daily atorvastatin(atorvastatin 80 mg oral tablet), 1 tab, PO, qhs calcium carbonate(Tums), 1000 mg, tid calcium carbonate-magnesium chloride(Magnesium Chloride With Calcium 64 mg-112 mg oral delayed release tablet), bid cholecalciferol(Vitamin D3), 5,000 units, bid famotidine(famotidine 20 mg oral tablet), 20 mg= 1 tab, PO, bid fluticasone nasal(fluticasone 93 mcg/inh nasal spray) LORazepam(LORazepam 1 mg oral tablet), 1 tab, PO, tid, PRN metoprolol(metoprolol succinate 50 mg oral tablet, extended release), 50 mg= 1 tab, PO, Daily metoprolol(Metoprolol Succinate ER 25 mg oral tablet, extended release), 1 tab, PO, Daily nitroglycerin(nitroglycerin 0.4 mg sublingual tablet), 0.4 mg= 1 tab, SL, q5min, PRN, 4 refills sertraline(sertraline 25 mg oral tablet), See Instructions, 3 refills sildenafil(sildenafil 20 mg oral tablet), 1 tab, PO, Daily, PRN spironolactone(spironolactone 25 mg oral tablet), 25 mg= 1 tab, PO, Daily unknown medication(Mag-64) Allergies Allergy Not found in SearchRash Flagyldizziness TagametDiaphoresis., Decreased blood pressure ciprofloxacin Social History Smoking Status Never smoked cigarettes Alcohol Frequency:1-2 times per month Employment/School Status:Employed Exercise - Regular exercise Times per week:Daily Exercise type:Walking, bike Nutrition/Health Type of diet:Regular Substance Abuse - Denies Substance Abuse Tobacco - Denies Tobacco Use Use:Former smoker Type:Cigarettes - Comments: Quit smoking 17 years ago Family History Cancer: Unknown. Heart disease: Unknown. Health Status Family Member(s) Immunizations Vaccine Date Status RSV vaccine, preF A-preF B, recombinant 07/31/2023 Recorded SARS-CoV-2 (COVID-19) mRNA-vacc - [id number] 05/18/2023 Recorded SARS-CoV-2 mRNA (Pfizer 12+) bivalent 04/16/2022 Recorded SARS-CoV-2 mRNA (zqhhuqzeugi-mnif-sfq) 10/15/2021 Recorded zoster vaccine, inactivated 07/02/2021 Recorded SARS-CoV-2 (COVID-19) mRNA BNT-162b2 vax 05/07/2021 Recorded zoster vaccine, inactivated 03/08/2021 Recorded SARS-CoV-2 (COVID-19) mRNA BNT-162b2 vax 09/20/2020 Recorded Comments : 2020-11-29: Historical information-source unspecified SARS-CoV-2 (COVID-19) mRNA BNT-162b2 vax 08/30/2020 Recorded Comments : 2020-11-29: Historical information-source unspecified influenza virus vaccine, inactivated 02/17/2018 Recorded influenza virus vaccine, inactivated 01/30/2017 Recorded influenza virus vaccine, H1N1 03/30/2009 Recorded Comments : 2020-11-29: Historical information-source unspecified Recommendations Health Maintenance Pending(in the next year) OverDue Colorectal Cancer Screening due01/15/23and every 10year Adult Influenza Vaccine due11/29/23and every 1year Due Adult Social Determinants of Health Screening due02/22/24Unknown Frequency Adult Tdap/Td Vaccine due02/22/24Unknown Frequency Falls Plan of Care due02/22/24Unknown Frequency Hepatitis C Screening due02/22/24One-time only Medicare Annual Wellness Visit due02/22/24and every 1year Pneumococcal Vaccine Older Adults due02/22/24One-time only Satisfied(in the past 1 year) Satisfied Body Mass Index on02/22/24.Satisfied by QI Edwards Lori Electronic Signature on File Electronically Reviewed/Signed by: Jose David Harrell MD Author Signature Dt/Tm:02/22/2024 03:49 PM Resident Department of Family Medicine Electronically Reviewed/Signed by: DO Margie Block Signature Dt/Tm: 02/22/2024 04:59 PM Department of Family Medicine AO Patient Care team information Care Team Personnel Name: Timothy Moss Michele C Position: Pharmacist Schedule II Member Role: Pharmacy - Lifetime Address: [place] [address] [place] Name: MD Jameel, Deacon Velez Position: Physician - Internal Med Member Role: Primary Care Provider Address: [address] [place] [address] [place] Name: Timothy Juárez Shailja Position: Pharmacist Member Role: Pharmacy - Lifetime Address: [address] Care Team Related Persons Name: DAVID SALAZAR Name: DAVID SALAZAR"
--- OUTSIDE RECORDS SUMMARY | 2024-03-03 11:08 | External Medical Summary | Continuity of Care Document ---
Author Name Unknown Organization [facility] [address] [facility] [address] Address [address] [place], [place] [id number] Care Team Providers Care Teacher Of The Visually Impaired Name Role Phone Deacon Jorgensen Primary Care Physician [phone] [id number] Date(s): 02/26/24 - 02/26/24 [facility] [address] [facility] [address], [facility] 1 [place], [place] [phone] Encounter Diagnosis Anemia, unspecified(Final) - Encounter for follow-up examination after completed treatment for conditions other than malignant neoplasm(Final) - Abnormal levels of other serum enzymes(Final) - Pure hypercholesterolemia, unspecified(Final) - Discharge Disposition: Home or Self Care Attending Physician: DO Holman Mehwish Referring Physician: DO Holman Mehwish Allergies, Adverse Reactions, Alerts Substance Criticality Severity Reaction Reaction Severity Status ciprofloxacin Active Flagyl dizziness Active Tagamet Diaphoresis. 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 Immunizations Given and Recorded Vaccine Date Status Refusal Reason RSV vaccine, preF A-preF B, recombinant 07/31/23 R ecorded SARS-CoV-2 (COVID-19) mRNA-vacc - [id number] 05/18/23 Recorded SARS-CoV-2 mRNA (Pfizer 12+) bivalent 04/16/22 Rec orded SARS-CoV-2 mRNA ([id number]) 10/15/21 Re corded zoster vaccine, inactivated 07/02/21 [...] qhs, Disp# 90 tab, Refills: 3, Pharmacy: [id number] Start Date: 10/20/23 Status: Ordered famotidine 20 mg oral tablet Start: 02/02/24 2:58:00 PM EDT, 1 tab, PO, bid, Disp# 180 tab, Pharmacy: [facility]/pharmacy #[id number] Start Date: 02/02/24 Stop Date: 05/02/24 Status: Ordered fluticasone 93 mcg/inh nasal spray Start: 05/13/23 12:30:00 PM EST, prn Start Date: 05/13/23 Status: Ordered LORazepam 1 mg oral tablet Start: 02/03/24 8:02:00 AM EDT, 1 tab, PO, tid, Disp# 90 tab, Refills: 0, PRN: NEEDED FOR ANXIETY,Pharmacy: [facility]/pharmacy #[id number] Start Date: 02/03/24 Status: Ordered Mag-64 Start: [...] Daily, Disp# 90 tab, Refills: 3, Pharmacy: [id number] Start Date: 12/30/23 Status: Ordered sertraline 25 mg oral tablet Start: 02/06/23 2:02:00 PM EDT, See Instructions, Disp# 180 tab, Refills: 3, TAKE 1 TABLET BY MOUTH EVERY DAY FOR 7 DAYS, THEN TAKE 2 TABS DAILY DIRECTED, Pharmacy: [facility]/pharmacy #[id number] Start Date: 02/06/23 Status: Ordered sildenafil 20 mg oral tablet Start: 01/21/24 7:31:00 AM EDT, 1 tab, PO, Daily, Disp# 90 tab, Refills: 0, ERECTILE DYSFUNCTION., PRN: NEEDED, Pharmacy: [id number] Start Date: 01/21/24 Status: Ordered spironolactone 25 mg oral tablet Start: 02/25/24 12:47:00 PM EDT, 1 tab, PO, Daily, Disp# 90 tab, Refills: 2, Pharmacy: [facility]/pharmacy #[id number] Start Date: 02/25/24 Stop Date: 11/21/24 [...] loose bodies. Results Laboratory List Name Date Iron Profile (IRON PROFILE) 02/26/24 Reticulocyte Panel (RETIC PANEL (AUTO)) 02/26/24 Vitamin B12 Level (VITAMIN B12) 02/26/24 Most recent to oldest [Reference Range]: 1 Imm. Retics [5.0-25.0 %] 10.6 % (02/26/24 10:12 AM) Retic Hgb [30.8-36.6 pg] 28.4 pg *LOW* (02/26/24 10:12 AM) B12 [211-946 pg/mL] 418 pg/mL (02/26/24 10:12 AM) Iron [50-158 ug/dL] 63 ug/dL (02/26/24 10:12 AM) Retics (abs) [16.7-96.7 K/uL] 56.6 K/uL (02/26/24 10:12 AM) Retic (%) [0.40-2.05 %] 1.37 % (02/26/24 10:12 AM) Fe Sat [14-50 %] 22 % (02/26/24 10:12 AM) Total IBC [250-400 ug/dL] 291 ug/dL (02/26/24 10:12 AM) Transferrin [200-360 mg/dL] 247 mg/dL (02/26/24 10:12 AM) Social History Social History Type Response Tobacco Former smoker, Cigar ettes 1 Smoking Status Never smoked cigaret perlita Sex Male Sex Representation Male (finding) 1Quit smoking 17 years ago Patient Care team information Care Team Personnel Name: Timothy Moss Michele C Position: Pharmacist Schedule II Member Role: Pharmacy - Lifetime Address: [address] Name: MD Jameel, Deacon Velez Position: Physician - Internal Med Member Role: Primary Care Provider Address: [address] [place] [address] Name: Timothy Juárez Shailja Position: Pharmacist Member Role: Pharmacy - Lifetime Address: [place] [address] [place] Care Team Related Persons Name: DAVID SALAZAR Name: DAVID SALAZAR
--- NOTE | 2024-03-03 11:38 | XRay Report ---
SINGLE VIEW PELVIS CLINICAL HISTORY: Postoperative examination. FINDINGS: An AP portable view of the pelvis is compared to study dated 12/18/2023. A bipolar left hip arthroplasty is in near-anatomic alignment. A single cortical lag screw transfixes the acetabular cup . No acute fracture is identified. Subcutaneous gas and soft tissue edema overlying the left hip are expected postsurgical changes. A bipolar right hip arthroplasty is unchanged the alignment. Lumbosacr al spondylosis is partially imaged. Sclerotic change is seen in the sacroiliac joints. Enthesophyte a rise from the anterior superior iliac spines. IMPRESSION: Expected postoperative findings status post left hip arthroplasty. No acute fracture is s een. ACT 112: Negative or not required by law. Electronically signed by: Efe Walker M.D. 03/03/2024 11:37 AM
--- NOTE | 2024-03-03 11:52 | Anesthesiology Progress Note ---
Date of Service March 03, 2024 Anesthesia Post Procedure Vital Signs Vital Signs: Temp Pulse Pulse Resp BP BP Pulse Ox 03/03/24 11:50 43 L 12 116/64 97 03/03/24 11:35 45 L 15 114/64 95 03/03/24 11:25 49 L 16 108/67 95 03/03/24 11:15 45 L 14 109/70 97 03/03/24 11:05 36.3 C L 44 L 16 109/62 94 03/03/24 10:55 45 L 13 104/60 97 03/03/24 10:45 46 L 12 106/61 98 03/03/24 10:35 48 L 14 106/59 L 96 03/03/24 10:25 45 L 12 103/60 99 03/03/24 10:15 46 L 15 104/64 99 03/03/24 10:05 49 L 16 105/54 L 99 03/03/24 09:57 36.1 C L 52 L 16 110/62 100 03/03/24 07:22 36.6 C 43 L 20 136/78 99 O2 Del Method O2 Flow Rate 03/03/24 11:50 Room Air 03/03/24 11:35 Room Air 03/03/24 11:25 Room Air 03/03/24 11:15 Room Air 03/03/24 11:05 Room Air 03/03/24 10:55 Room Air 03/03/24 10:45 Room Air 03/03/24 10:35 Room Air 03/03/24 10:25 Oxymask 4 03/03/24 10:15 Oxymask 4 03/03/24 10:05 Oxymask 4 03/03/24 09:57 Oxymask 6 03/03/24 07:22 Room Air Transfer of Care Handoff Completed per policy Notes Mental Status: alert / awake / arousable Patient Amnestic to Procedure: Yes Nausea / Vomiting: adequately controlled Pain: adequately controlled Airway Patency, RR, SpO2: stable & adequate BP & HR: stable & adequate Hydration State: stable & adequate Neuraxial Anesthesia: was administered and sensory block is resolving Anesthetic Complications: no major complications apparent
[2024-03-03] MEDS: SODIUM CHLORIDE 0.9% 1,000 ML IV SCH (13:22)
[2024-03-03] MEDS: CALCIUM CARBONATE 500 MG CHEWABLE TAB PO SCH (13:36)
[2024-03-03] MEDS: KETOROLAC TROMETHAMINE 15 MG/ML VIAL IV SCH (13:37)
[2024-03-03] MEDS: oxyCODONE HCL IR 5 MG TAB (IMMEDIATE RELEASE) PO PRN (15:19)
[2024-03-03] MEDS: Scopolamine CHECK PATCH PLACEMENT SCH (15:20)
[2024-03-03] MEDS ORDERED: ACETAMINOPHEN 500 MG TAB PO SCH (21:00)
[2024-03-03] MEDS ORDERED: DICLOFENAC SODIUM 75 MG TABCR PO SCH (21:00)
[2024-03-03] MEDS ORDERED: CeleBREX 200 MG CAP PO SCH (21:00)
[2024-03-03] MEDS: DOCUSATE SODIUM 100 MG CAP PO SCH (21:22)
[2024-03-03] MEDS: SENNA 8.6 MG TAB PO SCH (21:22)
[2024-03-03] MEDS: SERTRALINE HCL 50 MG TABLET PO SCH (21:24)
[2024-03-03] MEDS: MAGNESIUM CHLORIDE W/CALCIUM 64MG DELAYED REL TAB PO SCH (21:27)
[2024-03-04 02:48] VITALS: RESP 17
[2024-03-04 06:29] LABS: Basophils # (auto) 0.04 K/uL (0.00-0.20); Basophils % (auto) 0.4 %; Eosinophils # (auto) 0.23 K/uL (0.00-0.50); Eosinophils % (auto) 2.5 %; Hematocrit (blood only) 37.4 % (42.0-52.0); Hemoglobin 12.6 g/dl (14.0-18.0); Immature Granulocytes # (auto) 0.03 K/uL (0.01-0.20); Immature Granulocytes % (auto) 0.3 %; Lymphocytes # (auto) 1.23 K/uL (1.20-3.40); Lymphocytes % (auto) 13.2 %; Mean Corpuscular Hemoglobin 32.6 pg (25.0-34.0); Mean Corpuscular Hgb Conc 33.7 g/dL (32.0-36.0); Mean Corpuscular Volume 96.6 fL (80.0-100.0); Monocytes # (auto) 1.03 K/uL (0.11-0.59); Monocytes % (auto) 11.1 %; Neutrophils # (auto) 6.74 K/uL (1.40-6.50); Neutrophils % (auto) 72.5 %; Platelet Count 148 K/uL (130-400); RDW Coefficient of Variation 12.5 % (11.5-14.5); RDW Standard Deviation 44.2 fL (36.4-46.3); Red Blood Count 3.87 M/uL (4.70-6.10)
[2024-03-04 06:48] LABS: BUN Creatinine Ratio 22.4 (10-20); Calcium 9.1 mg/dl (8.6-10.3); Creatinine Clr Calc Pharmacy 71.1 ml/min; Potassium 4.4 mmol/L (3.5-5.1)
[2024-03-04 07:07] VITALS: BP 95/59; PULSE 59; TEMP 98.1; O2SAT 97
[2024-03-04] MEDS: METOPROLOL SUCC 50MG EXT REL TAB PO SCH (08:27)
[2024-03-04] MEDS ORDERED: CeleBREX 200 MG CAP PO SCH ×3 (09:00→21:00)
[2024-03-04] MEDS ORDERED: ASPIRIN 81 MG ECTAB PO SCH (09:00)
[2024-03-04] MEDS: MULTIVITAMIN TAB PO SCH (09:45)
[2024-03-04] MEDS: SPIRONOLACTONE 25 MG TAB PO SCH (09:46)
[2024-03-04] MEDS: ATORVASTATIN 40 MG TAB PO SCH (09:47)
[2024-03-04] MEDS: ASPIRIN 81 MG ECTAB PO SCH (09:47)
[2024-03-04] MEDS: CHOLECALCIFEROL 10 MCG (400 UNITS) TAB PO SCH (09:47)
--- NOTE | 2024-03-04 09:55 | Orthopedic Progress Note ---
Date of Service March 04, 2024 Assessment & Plan (1) S/P total left hip arthroplasty: Plan: Total hip precautions reviewed Weightbearing as tolerated with walker assistance Keep Silverlon dressing in place Pain controlled p.o. medication Ice with easy wrap DVT prophylaxis with aspirin and FRANCINE stockings Abduction pillow use x 6 weeks Plan is to discharge home later this morning with in-home physical therapy for the first 2 weeks. Follow-up at [facility] orthopedics as previously scheduled. With questions contact our clinic at [phone] Admission and Anticipated Discharge Date Admission Date: March 03, 2024 Subjective This 68-year-old male is day 1 status post left total hip arthroplasty. Patient states that he is doing fairly well today. He has completed PT and OT this morning. He states that he still has pain in his left hip but feels that the oxycodone effectively controls it. He states that he is already established with in-home physical therapy and is scheduled to begin sometime this weekend 2- 3 times weekly. Currently he denies chest pain, shortness of breath, fever, chills, sweats, nausea, vomiting, diarrhea or difficulty voiding. He also denies any numbness or tingling in his left lower extremity. Review of Systems Review of Systems: All systems reviewed & are unremarkable except as noted in Subjective Physical Exam Physical Exam: Left hip: Outer dressing was removed. Silverlon is clean dry intact and left in place. Patient is able to perform an active straight leg raise test. He is able to actively dorsi and plantarflex his foot. He has no difficulty transitioning from a seated to a standing position with the assistance of his walker. Logroll testing causes no discomfort. Patient tolerates light passive hip flexion near 90 degrees. He feels a slight tension with light passive internal and external rotation. Otherwise he is neurovascularly intact. His quad strength is 3+ out of 5. Results & Data Vital Signs (Past 12 Hours) Vital Signs Temp Pulse Resp BP Pulse Ox O2 Del Method 03/04/24 07:06 36.7 C 59 L 17 95/59 L 97 Room Air 03/04/24 02:48 36.6 C 60 17 123/73 98 Room Air 03/03/24 23:37 36.6 C 55 L 14 110/72 96 Room Air 03/03/24 22:23 36.6 C 51 L 17 111/70 96 Room Air Diagnostic Findings Laboratory Results WBC 9.30 K/ul (4.8-10.8) 03/04/24 06:16 RBC 3.87 M/uL (4.70-6.10) L 03/04/24 06:16 Hgb 12.6 g/dl (14.0-18.0) L 03/04/24 06:16 Hct 37.4 % (42.0-52.0) L 03/04/24 06:16 MCV 96.6 fL (80.0-100.0) 03/04/24 06:16 MCH 32.6 pg (25.0-34.0) 03/04/24 06:16 MCHC 33.7 g/dL (32.0-36.0) 03/04/24 06:16 RDW Std Deviation 44.2 fL (36.4-46.3) 03/04/24 06:16 RDW Coeff of Fernanda 12.5 % (11.5-14.5) 03/04/24 06:16 Plt Count 148 K/uL (130-400) 03/04/24 06:16 MPV 11.0 fL (9.4-12.4) 03/04/24 06:16 Immature Gran % (Auto) 0.3 % 03/04/24 06:16 Neut % (Auto) 72.5 % 03/04/24 06:16 Lymph % (Auto) 13.2 % 03/04/24 06:16 Gulf % (Auto) 11.1 % 03/04/24 06:16 Eos % (Auto) 2.5 % 03/04/24 06:16 Baso % (Auto) 0.4 % 03/04/24 06:16 Neut # (Auto) 6.74 K/uL (1.40-6.50) H 03/04/24 06:16 Lymph # (Auto) 1.23 K/uL (1.20-3.40) 03/04/24 06:16 Gulf # (Auto) 1.03 K/uL (0.11-0.59) H 03/04/24 06:16 Eos # (Auto) 0.23 K/uL (0.00-0.50) 03/04/24 06:16 Baso # (Auto) 0.04 K/uL (0.00-0.20) 03/04/24 06:16 Immature Gran # (Auto) 0.03 K/uL (0.01-0.20) 03/04/24 06:16 Sodium 138 mmol/L (136-145) 03/04/24 06:16 Potassium 4.4 mmol/L (3.5-5.1) 03/04/24 06:16 Chloride 108 mmol/L (98-107) H 03/04/24 06:16 Carbon Dioxide 23 mmol/L (21-32) 03/04/24 06:16 Anion Gap 7 (3-11) 03/04/24 06:16 BUN 24 mg/dl (6-23) H 03/04/24 06:16 Creatinine 1.07 mg/dl (0.6-1.4) 03/04/24 06:16 Est Cr Clr Drug Dosing 71.1 ml/min 03/04/24 06:16 eGFR 74.65 03/04/24 06:16 BUN/Creatinine Ratio 22.4 (10-20) H 03/04/24 06:16 Glucose 105 mg/dl (70-99(Fasting)) H 03/04/24 06:16 POC Glucose 91 mg/dl (70-99) 03/03/24 12:45 Calcium 9.1 mg/dl (8.6-10.3) 03/04/24 06:16 Blood Type B Positive 03/03/24 07:06 Antibody Screen NEGATIVE 03/03/24 07:06 Impressions Pelvis X-Ray 03/03/24 10:03 SINGLE VIEW PELVIS CLINICAL HISTORY: Postoperative examination. FINDINGS: An AP portable view of the pelvis is compared to study dated 12/18/2023. A bipolar left hip arthroplasty is in near-anatomic alignment. A single cortical lag screw transfixes the acetabular cup. No acute fracture is identified. Subcutaneous gas and soft tissue edema overlying the left hip are expected postsurgical changes. A bipolar right hip arthroplasty is unchanged the alignment. Lumbosacral spondylosis is partially imaged. Sclerotic change is seen in the sacroiliac joints. Enthesophyte arise from the anterior superior iliac spines. IMPRESSION: Expected postoperative findings status post left hip arthroplasty. No acute fracture is seen. ACT 112: Negative or not required by law. Electronically signed by: Efe Walker M.D. 03/03/2024 11:37 AM
--- NOTE | 2024-03-04 10:07 | Discharge Summary ---
Date of Service March 04, 2024 Admission HPI Per Admitting Provider History of Present Illness (including history relevant to procedure): This 68-year-old male presents to the clinic today for his preoperative history and physical. Patient was initially scheduled for the surgery back on January 06 but was canceled due to significant abnormalities of his metabolic panel. Patient has since stopped taking his Ozempic and has had other medications adjusted by his primary care provider and is now optimally cleared for surgery. Patient's hip pain travels into his lower back. He has pain in his knee due to his hip issues. Patient has fallen several times and has been ambulating with a cane. He has fallen 3 times while using his cane. Patient denies numbness and tingling down his leg and does not have any issues with his balance. Patient is electing to proceed with surgical intervention due to failed conservative management. ROS: A 12 point review of systems is performed and is unremarkable except for those things stated in the HPI past medical history. Past Medical History: Problems: Osteoarthritis of left hip Osteoarthritis of left knee Osteoarthritis of right knee Osteoarthritis of right hip Tinea unguium Elevated cholesterol S/P matrixectomy of toe Toe pain, bilateral Ingrown toenail of both feet Acute sinusitis Greater trochanteric pain syndrome of left lower extremity Arthritis of left hip Lesion of ulnar nerve, left upper limb DJD (degenerative joint disease) of knee Status post total hip replacement, right Coronary artery disease JOE (generalized anxiety disorder) Hearing loss Arthritis HTN (hypertension) BCC (basal cell carcinoma) Procedure History Procedure Procedure Date Comments Shave biopsy and cauterization of skin CT of head without contrast 07/08/2020 - Impression: No acute intracraniel findings. Upper GI endoscopy 10/16/2014 - Normal 2nd part of the duonenum and examined duodenum. Biopsied.GastritisLA Grade A reflux esophagitisNormal middle third of esophagus. Biopsied.Await pathology results. Arthroscopy of knee 03/22/2014 - Left Knee Arthroscopy Extensive Debridement. Chondroplasty: Patella, Trochlea, Medial compart., Lateral Tibial Plateau. Partial medial and lateral meniscectomies. Removal of loose bodies. Injection into joint cavity 03/2013 Colonoscopy 01/17/2013 Meniscectomy of knee 2008 CABG - Coronary artery bypass graft 2006 Heart cath with stent 2006 Allergies and Sensitivities: Flagyl(dizziness) ciprofloxacin Allergy Not found in Search(Rash) Tagamet(Diaphoresis.) Tagamet(Decreased blood pressure) Current Home Meds: (Last Updated 02/11 15:11) LORazepam (LORazepam 1 mg oral tablet) 1 tab PO tid PRN: NEEDED FOR ANXIETY acetaminophen PRN: as needed for pain albuterol (Albuterol (Eqv-Proventil HFA) 90 mcg/inh inhalation aerosol) INHALE 2 PUFFS EVERY 6 HOURS NEEDED FOR SHORTNESS OF BREATH OR WHEEZING aspirin 81 mg Daily atorvastatin (atorvastatin 80 mg oral tablet) 1 tab PO qhs calcium carbonate-magnesium chloride (Magnesium Chloride With Calcium 64 mg-112 mg oral delayed release tablet) bid calcium carbonate (Tums) 1,000 mg tid cholecalciferol (Vitamin D3) bid with 200 units of Vitamin K2 famotidine (famotidine 20 mg oral tablet) 20 mg PO bid fluticasone nasal (fluticasone 93 mcg/inh nasal spray) prn metoprolol (Metoprolol Succinate ER 25 mg oral tablet, extended release) 1 tab PO Daily nitroglycerin (nitroglycerin 0.4 mg sublingual tablet) 0.4 mg SL q5min PRN: as needed for chest pain sertraline (sertraline 25 mg oral tablet) TAKE 1 TABLET BY MOUTH EVERY DAY FOR 7 DAYS, THEN TAKE 2 TABS DAILY DIRECTED sildenafil (sildenafil 20 mg oral tablet) 1 tab PO Daily PRN: NEEDED ERECTILE DYSFUNCTION. spironolactone (spironolactone 25 mg oral tablet) 25 mg PO Daily HAZARDOUS MEDICATION | tablet: green | suspension: teal - A Ruiz 01/06 14:00 Initial Wt: 02/11 97.8 kg 215 lb Admission Exam Per Admitting Provider Physical Exam: (relevant to the procedure, including heart and lung evaluation) General: Alert and oriented x 3 with proper grooming and hygiene Eyes: Pupils are equal and reactive to light with accommodation. Extraocular moods are intact Throat: Posterior oropharynx clear with absence of edema, erythema or exudate Cardiac: Regular rate and rhythm no murmurs or gallops appreciated Lungs: Clear to auscultation throughout with no wheezing, rales or rhonchi Abdomen: Obese, nondistended, nontender with NABS Extremities: Left hip; flexion is limited to 90 degrees, internal rotation to 5 degrees and external rotation to 25 degrees. Scour and impingement tests are both positive. Patient has referred pain to the groin with resistance applied when straight leg raise testing. Stinchfield test positive. Logroll test negative. Patient does experience tenderness to palpation over the groin and posterior lateral hip. He is neurovascularly intact left lower extremity. Neuro: Cranial nerves II through XII are intact no motor or sensory deficit Skin: Patient does have some superficial skin abrasions/ulcerations to the anal crease and left buttocks that appear older and healing. There is no open drainage or palpable fluctuance. Principal Diagnosis Left hip osteoarthritis Discharge Exam Left hip: Outer dressing was removed. Silverlon is clean dry intact and left in place. Patient is able to perform an active straight leg raise test. He is able to actively dorsi and plantarflex his foot. He has no difficulty transitioning from a seated to a standing position with the assistance of his walker. Logroll testing causes no discomfort. Patient tolerates light passive hip flexion near 90 degrees. He feels a slight tension with light passive internal and external rotation. Otherwise he is neurovascularly intact. His quad strength is 3+ out of 5. Discharge Data Allergies Allergy/AdvReac Type Severity Reaction Status Date / Time cantaloupe Allergy Intermediate Rash Verified 03/03/24 07:12 ciprofloxacin Allergy Intermediate Rash, Verified 03/03/24 07:12 tunnel vision, loss of taste melon Allergy Intermediate Rash Verified 03/03/24 07:12 cimetidine AdvReac Intermediate Diaphoresis Verified 03/03/24 07:12 Procedures Performed Operation Date: 03/03/24 08:15 Actual Procedures p Left Total Hip Arthroplasty(Left) - Max Miller MD Hospital Course (1) S/P total left hip arthroplasty: Patient had an uneventful overnight stay following left total hip arthroplasty. He states that his pain is effectively controlled with the oral oxycodone. Patient's plan is to be discharged home today with in-home physical therapy be ginning over the weekend. Patient is very pleased with the results of the surgery. Total hip precautions reviewed Weightbearing as tolerated with walker assistance Keep Silverlon dressing in place Pain controlled p.o. medication Ice with easy wrap DVT prophylaxis with aspirin and FRANCINE stockings Abduction pillow use x 6 weeks Plan is to discharge home later this morning with in-home physical therapy for the first 2 weeks. Follow-up at [facility] as previously scheduled. With questions contact our clinic at [phone] Total Time Total Time Spent Total Time Spent (In Minutes): 25 mins Discharge Plan Discharge Items Patient Disposition: Home - Home Health Services Reason For Visit: Left Hip Osteoarthritis Discharge Diagnosis: Left hip osteoarthritis Activity: As commented below Lifting: None Bathing: Keep incision dry Bathing Comment: May shower tomorrow Sexual Activity: Wait until after follow-up appointment Exercise/Sports: Wait until after follow-up appointment Driving/Machine Use: No driving until cleared by sales order specialist Weightbearing: Left weightbearing Weightbearing Comment: as tolerated with walker assistance Non-emergency contact: Surgeon Call non-emergency contact if: you have any medication questions, your pain is not controlled, your temperature is above 101.5, your wound has increased drainage and your wound pain has increased Follow-up/Referrals: Deacon Jorgensen MD [Primary Care Provider] - Diet: Carb Count or DM1 and Heart Healthy Addtl Attending Provider Instructions: Post-operative Instructions Dear Patient and Family/Friends, Before you are discharged from the hospital, it is important to know what to expect when you get home after surgery. To that end, we have created this sheet of discharge instructions which covers many commonly asked questions. Make sure you go through this sheet in its entirety with your nurse before you are discharged. Please note that we will go over the specifics of your surgery and recovery when you return for your first post-operative visit. Sincerely, Dr. Miller Medications 1. Oxycodone 5 mg: Take 1 to 2 tablets every 4-6 hours as needed for postoperative pain control. A prescription for this medication will be sent to your pharmacy 2. Diclofenac sodium 75 mg: Take 1 tab twice daily for the first 30 days postoperatively for pain and inflammation relief. A prescription for this medication will be sent to your pharmacy with 1 additional refill 3. Aspirin 81 mg: Take 1 tab twice daily for the first 30 days postoperatively for blood clot prevention. Please purchase the medication. 4. Extra strength Tylenol 500 mg: Take 2 tabs every 6-8 hours as needed for additional pain relief. Please purchase. Pain Expect to be in a fair amount of pain after surgery. Remember, our goal is not to eliminate your pain, but to make it tolerable. It is a good idea to stay ahead of your pain by taking the medications you were prescribed once you get home. Typically, the pain starts improving 3-7 days after surgery. You should start weaning off the narcotic pain medication (oxycodone, hydrocodone, hydromorphone, morphine) as soon as your pain improves. Please call our office if your pain is not adequately controlled. Ice Ice your operative site at least 5 times a day for 15-30 minutes at a time. Make sure you have a thin cloth between the ice or cooling unit and your skin to prevent roldan bite. This is especially important if you received a nerve block. Continue icing your operative site for the first 5-7 days after surgery, then as needed. Diet/Nausea/Vomiting Start by drinking clear liquids and eating crackers. If you can tolerate this, then you may resume your normal diet. If you feel nauseated or vomit, take Zofran/ondansetron (if prescribed). Please call our office if you have intractable nausea or vomiting, or, if after hours, you may go to the Emergency Room for help. Constipation Constipation is a common side effect of narcotic pain medication. If you have not had a bowel movement within 2 days after surgery, we recommend purchasing an over the counter laxative such as Milk of Magnesia, Dulcolax, or Miralax from a local pharmacy, and taking it as instructed. Call our clinic if any questions. Nerve block The anesthesia team sometimes places a nerve block to help with post-operative pain control. This results in significant numbness and inability to move the extremity. The nerve block usually wears off in 8-12 hours, but sometimes can last up to 24 hours. Please call our office if you are still unable to move your extremity after 24 hours, unless you received a pain pump to take home. Nerve blocks typically wear off quickly, so start taking pain medication as soon as you start feeling soreness near your surgical site. Weight bearing and Range of Motion. Do not bear any weight through your operative extremity immediately after surgery. If you had upper extremity surgery, do not lift anything with that arm. If you are in a knee brace, keep it locked in place until your follow-up. We will discuss your weight bearing, range of motion, and lifting restrictions in detail at your first post-operative appointment. Continuous Passive Motion (CPM) Machine If you were prescribed a CPM machine, it will start after your first post- operative appointment, at which time we will give you instructions on the range of motion settings and duration of treatment Physical therapy You will be given a prescription for physical therapy or occupational therapy at your first post-operative appointment. Typically, patients start therapy within 1 week of surgery Wound care and showering We will inspect your wound at your first post-operative visit, and may do a dressing change at that time. Most patients will be in a water-proof dressing that is removed 14 days after surgery. It is normal to see some dried blood on the dressing. Do not remove your dressing, paper strips or sutures yourself unless you are given permission. Showering is allowed the day after surgery. Do not scrub or remove any dressings. The wound should not be submerged underwater (i.e. in a bathtub or pool) until 4 weeks after surgery FRANCINE stockings If you were given white stockings, these are to be worn at all times except to shower (on both legs) for the first 2 weeks after surgery. Driving You may not drive while taking narcotic pain medication or while in a cast, splint, sling or brace. You, the patient, need to make the final determination about when you are safe to drive, however, the earliest you may consider driving after surgery is below: Hand/Wrist/Elbow Surgery: 3 days Shoulder Surgery: 2 weeks Hip,/Knee/Ankle Surgery: 4 weeks Fracture repair: 6 weeks Return to Work Your return to work depends on what surgery was done and what type of work you do. Please bring any paperwork your employer needs completed to your first post-operative visit. Also, bring a description of your job duties, as this helps us to understand what risks you may face at work. Travel Avoid long distance travel (greater than 1 hour) in airplanes and cars for the first 6 weeks after surgery. If you must travel, you need to have a Doppler ultrasound done before you travel to rule out a blood clot in your legs. Follow-up You should have a follow-up appointment already scheduled 1-2 days after surgery. If not, please contact our office to make this appointment before you leave the hospital. When to call the office It is normal to have swelling and bruising in the limb that was operated on. This will improve with time. It is also normal to have fevers for the first 2 days after surgery. Reasons you should call your doctor include: Uncontrolled pain; Nausea, vomiting, or constipation that does not improve with medication; Fevers over 101.5, chills, sweats; Drainage or bleeding from the wound; Foul odor; Spreading areas of redness; Any other concerns. Contact Information Please call Dr. Miller's office at [phone] with any concerns. Pending Studies at Discharge: No Stand-Alone Forms: [facility] Medications and DC Order Prescriptions: New acetaminophen [Tylenol Extra Strength] 500 mg Tablet 1,000 mg PO Q8 30 Days Qty: 180 0RF aspirin 81 mg Tablet,Delayed Release (Dr/Ec) 81 mg PO BID 30 Days Qty: 60 0RF diclofenac sodium 75 mg Tablet,Delayed Release (Dr/Ec) 75 mg PO BID 30 Days Qty: 60 1RF oxycodone 5 mg Tablet 5 - 10 mg PO Q4H MDD Ongoing treatement. Max 12 PRN (Reason: Post op pain control) Qty: 28 0RF Continued (DME) Discontinue DME Misc See Rx Instructions .MEDSUPPLY Qty: 1 0RF Rx Instructions: Discontinue portable oxygen albuterol sulfate 90 mcg/actuation HFA aerosol inhaler 2 puff inhalation Q6H PRN (Reason: Shortness Of Breath Or Wheezing) Qty: 18 11RF (DME) Oxygen Home Liters Per Minute See Rx Instructions .Route Qty: 1 0RF Rx Instructions: Discontinue home and portable oxygen both semaglutide 0.25 mg or 0.5 mg (2 mg/3 mL) pen injector 0.5 mg subcut .weekly Qty: 3 6RF aspirin 81 mg tablet,delayed release (DR/EC) 81 mg PO QAM atorvastatin 80 mg tablet 80 mg PO QAM lorazepam 1 mg tablet 1 mg PO TID PRN (Reason: Anxiety) Rx Instructions: patient takes this med 3 times a day routinely (DME) Portable Oxygen Misc See Rx Instructions .MEDSUPPLY Qty: 1 0RF Rx Instructions: Oxygen 2 liters continuous via nasal cannula at rest and 3 liters with ambulation/activity. sildenafil 25 mg Tablet 0 mg PO DAILY PRN (Reason: Erectile Dysfunction) Rx Instructions: PT UNSURE OF STRENGTH, UNABLE TO VERIFY. PER PT "TAKES JUST FOR THE HECK OF IT". administer 30 minutes to 4 hours before activity nitroglycerin [Nitrostat] 0.4 mg Tablet, Sublingual 0.4 mg sublingual DIRECTED PRN (Reason: Chest Pain) fluticasone propionate 50 mcg/actuation [place],Suspension 1 spray INTRANASAL DAILY PRN (Reason: Congestion) Rx Instructions: administer into each nostril spironolactone 25 mg Tablet 25 mg PO QAM Qty: 30 1RF magnesium chloride [Mag 64] 64 mg Tablet,Delayed Release (Dr/Ec) 64 mg PO BID Qty: 60 1RF famotidine 20 mg Tablet 20 mg PO BID Qty: 60 1RF sertraline 25 mg Tablet 25 mg PO BID acetaminophen 500 mg Tablet 2,000 mg PO BID metoprolol succinate 50 mg Tablet Extended Release 24 Hr 50 mg PO QAM diclofenac sodium 75 mg tablet,delayed release (DR/EC) 75 mg PO BID Patient Comments: hasn't taken for 4 days as of 02/22/24 calcium carbonate 1,000 mg Tablet 1,000 mg PO TID vitamin D3-vitamin K2 1 cap PO DAILY Discharge Orders: Discharge Order (Routine); Ordered 03/04/24 Ordered By: Alex Hayes Admission Data Admit Date/Time: 03/03/24 10:03 Attending Provider: Max Miller Admit Provider: Max Miller Primary Care Provider: Deacon Jorgensen Other Providers: [facility],Home Healthcare; [facility]
== END 2024-03-04 11:29 | disposition home health service (06) ==
LOC: ASU 06:33 → INTOOBSV 10:03 → 3E 10:03